=== PATIENT | male | born 1960 | race African-American/Black ===

== ENCOUNTER 2017-03-20 10:30 | Inpatient (IN) | payer MEDICARE ==
[~2017-03-20] VITALS: Ht 185.4 cm; Wt 128.0 kg
[2017-03-20] VITALS (10 sets, daily range): BP systolic 149–182; BP diastolic 74–104; PULSE 89–104; RESP 20–24; TEMP 97.5–98.4; O2SAT 78–96
[~2017-03-20 10:30] MED LIST: ASPI325T PO; CLON.1 PO; DOLU1TAB PO; FURO1TAB93 PO; LEVEMIR SQ; METO50TA PO; PRED50 PO; TRUVTAB2 PO; ZITH200S PO
[2017-03-20] MEDS ORDERED: SODIUM CHLORIDE 0.9% FLUSH 10 ML FLUSH IVF PRN (11:00)
[2017-03-20] MEDS ORDERED: RESP: ALBUTEROL 2.5 MG/IPRATROPIUM 0.5 MG NEB (SCH) INH ONE (11:00)
--- NOTE | 2017-03-20 11:07 | RADRPT ---
EXAM DATE/TIME: 03/20/2017 11:03 [place] COMPARISON: CHEST SINGLE AP, January 28, 2016, 5:31. INDICATIONS : Short of breath and chest pain. MEDICAL HISTORY : Chronic obstructive pulmonary disease. Congestive heart failure. SURGICAL HISTORY : Pacemaker. ENCOUNTER: Initial ACUITY: 1 day PAIN SCORE: 8/10 LOCATION: Bilateral chest FINDINGS: Cardiac silhouette is enlarged. There is central vascular congestion and central and basilar parenchy mal opacity which may be developing edema. CONCLUSION: Moderate cardiac decompensation Daniel Flores MD on March 20, 2017 at 11:05 Board Certified Radiologist. This report was verified electronically.
[2017-03-20 11:21] LABS: AUTOMATED NEUTROPHIL # 2.4 TH/MM3 (1.8-7.7); BASOPHIL % 0.7 % (0.0-2.0); EOSINOPHIL # 0.1 TH/MM3 (0-0.4); EOSINOPHIL % 1.6 % (0.0-4.0); HEMATOCRIT 37.3 % (39.0-51.0); HEMO FLAGS DIFF FINAL; LYMPH % 25.4 % (9.0-44.0); MEAN CELL VOLUME 100.9 FL (80.0-100.0); MEAN CORPUSCULAR HEMOGLOBIN 31.2 PG (27.0-34.0); NEUT % 59.3 % (16.0-70.0); PLATELET COUNT 196 TH/MM3 (150-450); RED CELL DISTRIBUTION WIDTH 17.3 % (11.6-17.2)
[2017-03-20 11:41] LABS: BACTERIA, URINE FEW /hpf; BLOOD, URINE SMALL (NEG); GLUCOSE,URINE NEG (NEG); KETONE, URINE NEG (NEG); NITRITE,URINE NEG (NEG); SQUAMOUS EPITHELIAL CELL URINE <1 /hpf (0-5); URINE COLOR YELLOW (YELLW/STRAW)
[2017-03-20 11:42] LABS: ALKALINE PHOSPHATASE 114 U/L (45-117); CREATINE KINASE 143 U/L (39-308); TOTAL BILIRUBIN ADULT 0.7 MG/DL (0.2-1.0)
[2017-03-20 11:44] LABS: COMMENT (UR) CULT NOT INDICATED; CULTURE IF INDICATED CULT NOT INDICATED
[2017-03-20 11:46] LABS: ALT (GPT) 64 U/L (12-78); ANION GAP 5 MEQ/L (5-15); AST (GOT) 66 U/L (15-37); BICARBONATE 28.8 MEQ/L (21.0-32.0); BLOOD UREA NITROGEN 26 MG/DL (7-18); CHLORIDE 103 MEQ/L (98-107); GLOMERULAR FILTRATION RATE 35 ML/MIN (>89); POTASSIUM 4.6 MEQ/L (3.5-5.1); SODIUM (NA) 137 MEQ/L (136-145)
[2017-03-20] MEDS: RESP: ALBUTEROL 2.5 MG/3 ML NEB (SCH) INH ×2 (11:50→11:51)
[2017-03-20 11:54] LABS: CKMB 2.7 NG/ML (0.5-3.6)
[2017-03-20] MEDS ORDERED: methylPREDNISolone SOD SUCC 125 MG/2 ML VIAL IV PUSH ONE (12:00)
[2017-03-20] MEDS ORDERED: HYDROmorphone HCL PF 1 MG/ML VIAL IV PUSH ONE (12:00)
[2017-03-20 12:07] LABS: BLOOD GAS BASE EXCESS 1.9 mmol/L (-2-2); BLOOD GAS CARBOXYHEMOGLOBIN 3.3 % (0-4); BLOOD GAS HCO3 29 mmol/L (22-26); BLOOD GAS METHEMOGLOBIN 0.4 % (0-2); BLOOD GAS O2 HGB SATURATION 90 % (90-100); BLOOD GAS OXYGEN CONTENT 13.2 Vol % (12.0-20.0); BLOOD GAS PCO2 71 mmHg (38-42); BLOOD GAS PO2 76 mmHG (61-120); BLOOD GAS TOTAL HGB 10.4 G/DL (12.0-16.0); CRITICAL VALUE YES; DRAW SITE RT RADIAL; FIO2 32 %; LITER FLOW 3 L/M; NUMBER OF ARTERIAL PUNCTURES 1; OXYGEN DEVICE NASAL CANNULA; STAT YES; TEMP CORR TO 98.6; ULNAR PULSE PRESENT
--- NOTE | 2017-03-20 12:20 | PD ---
HPI Chief Complaint: Respiratory Distress Time Seen by Provider: 10:46 Travel History International Travel<30 days: No Contact w/Intl Traveler<30days: No Traveled to known affect area: No History of Present Illness HPI This is a 56-year-old gentleman with a history of COPD, CHF, chronic lymphedema of the right lower extremity, who presents today with complaints of dyspnea and chest pain. Patient states that over the last day and a half he's become increasingly short of breath. He states he normally uses 3 L of oxygen at night for sleeping only. He states that he's had to use it over the last day during the day as well. He reports dyspnea on exertion. He reports the pain on the left side the chest as constant. There is no waxing and waning. There is no productive cough. He has been using his MDIs as well as nebulizers. He reports that despite this, he is still having wheezing and shortness of breath. There is no nausea or diaphoresis. The patient states that 3 weeks ago he was seen in [place] and had a heart attack at that time. PFSH Past Medical History Arthritis: No Asthma: No Autoimmune Disease: Yes (HIV) Blood Disorders: No Anxiety: No Depression: Yes Heart Rhythm Problems: Yes (HAS BEEN TOLD HE NEEDS A "DEFIBRILLATOR" AND "STENTS") Cancer: Yes (LYMPHOMA;CHORNIC LYMPHEDEMA) Cardiovascular Problems: Yes (CHF) High Cholesterol: No Chemotherapy: Yes Chest Pain: Yes Congestive Heart Failure: Yes COPD: Yes Cerebrovascular Accident: No Coronary Artery Disease: Yes Diabetes: Yes Patient Takes Glucophage: No Diminished Hearing: No Endocrine: No Gastrointestinal Disorders: Yes GERD: Yes Glaucoma: No Genitourinary: Yes Headaches: No Hepatitis: Yes Hiatal Hernia: No Heparin Induced Thrombocytopen: No Hypertension: Yes Immune Disorder: Yes (HIV/AIDS) Implanted Vascular Access Dvce: No Kidney Stones: No Medical other: Yes (HIV +) Musculoskeletal: No Neurologic: No Psychiatric: No Reproductive: No Respiratory: Yes (SLEEP APNEA) Immunizations Current: No Migraines: No Myocardial Infarction: Yes Radiation Therapy: No Renal Failure: No Seizures: No Sickle Cell Disease: No Sleep Apnea: Yes Thyroid Disease: Yes Ulcer: No ?: Not Past Surgical History Abdominal Surgery: No AICD: No Appendectomy: No Arteriovenous Shunt: No Cardiac Surgery: Yes Cholecystectomy: No Ear Surgery: No Endocrine Surgery: No Eye Surgery: No Genitourinary Surgery: No Gynecologic Surgery: No Insulin Pump: No Joint Replacement: No Neurologic Surgery: No Oral Surgery: Yes Pacemaker: No Thoracic Surgery: No Other Surgery: Yes ( GRAFT R. UPPER LEG) Social History Alcohol Use: No Tobacco Use: No Substance Use: No Allergies-Medications (Allergen,Severity, Reaction): Coded Allergies: benazepril (Unverified Allergy, Severe, SWELLING MOUTH ,TONGUE, 03/20/17) captopril (Unverified Allergy, Severe, SWELLING MOUTH ,TONGUE, 03/20/17) enalaprilat (Unverified Allergy, Severe, SWELLING MOUTH ,TONGUE, 03/20/17) fosinopril (Unverified Allergy, Severe, SWELLING MOUTH ,TONGUE, 03/20/17) lisinopril (Unverified Allergy, Severe, SWELLING MOUTH ,TONGUE, 03/20/17) quinapril (Unverified Allergy, Severe, SWELLING MOUTH ,TONGUE, 03/20/17) *MDRO Multi-Drug Resistant Organism (Verified Adverse Reaction, Unknown, 03/20/17) MRSA Wound 08/2013 MRSA PCR Nasal screen positive 10/19/14. Reported Meds & Prescriptions Reported Meds & Active Scripts Active Deltasone 50 Mg Tab (Prednisone) 50 Mg Tab 50 Mg PO DAILY Metoprolol Tartrate 50 mg (Metoprolol Tartrate) 50 Mg Tab 50 Mg PO BID 30 Days Lasix (Furosemide) 40 Mg Tab 40 Mg PO BID 30 Days Reported Zithromax (Azithromycin) 200 Mg/5 Ml Lashell 200 Mg PO DAILY Catapres 0.1 mg (Clonidine HCl) 0.1 Mg Tab 1 Tab PO DAILY Levemir Insulin (Insulin Detemir) 100 Units/Ml Inj 60 Units SQ DAILY Truvada (Emtricitabine/Tenofovir) 200 Mg-300 Mg Tab 1 Tab PO DAILY Tivicay (Dolutegravir Sodium) 50 Mg Tab 1 Tab PO DAILY Aspirin 325 Mg Tab (Aspirin) 325 Mg Tab 325 Mg PO DAILY Review of Systems Except as stated in HPI: all other systems reviewed are Neg General / Constitutional: No: Fever, Chills HENT: No: Headaches, Lightheadedness Cardiovascular: Positive: Chest Pain or Discomfort, No: Palpitations (left sided constant 24 hours), Irregular Rhythm Respiratory: Positive: Shortness of Breath, Wheezing, No: Cough Gastrointestinal: No: Nausea, Vomiting, Abdominal Pain Genitourinary: No: Dysuria Musculoskeletal: Positive: Weakness (generalized), Edema (chronic bilateral lower extremity with chronic lymphedema of the right lower extremity.), No: Pain Neurologic: Positive: Weakness (generalized), No: Dizziness, Headache, Change in Mentation Physical Exam Narrative GENERAL: Obese gentleman in obvious respiratory discomfort. SKIN: Focused skin assessment warm/dry. HEAD: Atraumatic. Normocephalic. EYES: No scleral icterus. No injection or drainage. ENT: No nasal bleeding or discharge. Mucous membranes pink and moist. NECK: Trachea midline. Supple.. CARDIOVASCULAR: Sinus Tachycardic with a rate of 102. No murmur appreciated. RESPIRATORY: Bilateral expiratory wheezes with decreased air exchange in the mid and lower lung gomez. GASTROINTESTINAL: Abdomen soft, obese non-tender, nondistended. MUSCULOSKELETAL: Chronic bilateral lower extremity edema with right worse than last. Patient has chronic lymphedema of the right lower extremity. NEUROLOGICAL: Awake and alert. No obvious cranial nerve deficits. Motor grossly within normal limits. Normal speech. Data Data Last Documented VS Vital Signs Date Time Temp Pulse Resp B/P (MAP) Pulse Ox O2 Delivery O2 Flow Rate FiO2 03/20/17 13:46 18 03/20/17 11:59 96 Nasal Cannula 3.00 03/20/17 11:59 03/20/17 11:37 104 03/20/17 10:33 98.4 Orders Orders Complete Blood Count With Diff (03/20/17 10:46) Comprehensive Metabolic Panel (03/20/17 10:46) B-Type Natriuretic Peptide (03/20/17 10:46) Ckmb (Isoenzyme) Profile (03/20/17 10:46) Troponin I (03/20/17 10:46) Arterial Blood Gas (Abg) (03/20/17 10:46) Urinalysis - C+S If Indicated (03/20/17 10:46) Iv Access Insert/Monitor (03/20/17 10:46) Ecg Monitoring (03/20/17 10:46) Oximetry (03/20/17 10:46) Oxygen Administration (03/20/17 10:46) Chest, Single Ap (03/20/17 10:46) Sodium Chloride 0.9% Flush (Ns Flush) (03/20/17 11:00) Albuterol-Ipratropium Neb (Duoneb Neb) (03/20/17 11:00) Albuterol Neb (Albuterol Neb) (03/20/17 11:00) CKMB (03/20/17 10:40) CKMB% (03/20/17 10:40) Methylprednisolone So Succ Inj (Solumedr (03/20/17 12:00) Hydromorphone Pf Inj (Dilaudid Pf Inj) (03/20/17 12:00) Electrocardiogram (03/20/17 ) Aspirin (Aspirin) (03/21/17 09:00) Azithromycin 200 Mg/5 Ml Liq (Zithromax (03/21/17 09:00) Dolutegravir (Tivicay) (03/21/17 09:00) Emtricitabin-Tenofov 200-300mg (Truvada (03/21/17 09:00) Admit To Inpatient (03/20/17 ) Vital Signs (Adult) VERA.Q4H (03/20/17 14:00) Activity Oob Ad [place] (03/20/17 14:00) 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 VERA.Q8H (03/20/17 14:00) Intake + Output VERA.QSHIFT (03/20/17 14:00) ^ Restrictions (03/20/17 14:00) Sodium Chloride 0.9% Flush (Ns Flush) (03/20/17 21:00) Sodium Chloride 0.9% Flush (Ns Flush) (03/20/17 14:00) Bumetanide Inj (Bumex Inj) (03/20/17 18:00) Basic Metabolic Panel (Bmp) (03/21/17 06:00) Magnesium (Mg) (03/20/17 14:00) Echo 2d Comp With Doppler (03/20/17 ) Resp Oxygen Cordell C Titrat 1-4 L (03/20/17 ) Case Management Consult (03/20/17 ) Heparin Inj (Heparin Inj) (03/20/17 21:00) Inpatient Certification (03/20/17 ) Diet Heart Healthy (03/20/17 Dinner) Insulin Detemir Inj (Levemir Inj) (03/20/17 21:00) Bedside Glucose VERA.CSUGAR (03/20/17 14:03) Blood Glucose Goal (Criteria) (03/20/17 14:03) Hypoglycemia 70 Mg/Dl Or < (03/20/17 14:03) Notify Dr: Other (03/20/17 14:03) Dextrose 50% In Joseluis (Vial) Inj (D50w (Vi (03/20/17 14:15) Glucagon Inj (Glucagon Inj) (03/20/17 14:15) Insulin Aspart Supplemtl Scale (Novolog (03/20/17 17:00) Albuterol-Ipratropium Neb (Duoneb Neb) (03/20/17 16:00) Albuterol Neb (Albuterol Neb) (03/20/17 16:00) Methylprednisolone So Succ Inj (Solumedr (03/20/17 18:00) Admit Order (Ed Use Only) (03/20/17 15:05) Labs Laboratory Tests Test 03/20/17 10:40 03/20/17 11:10 03/20/17 11:40 White Blood Count 4.0 TH/MM3 Red Blood Count 3.70 MIL/MM3 Hemoglobin 11.6 GM/DL Hematocrit 37.3 % Mean Corpuscular Volume 100.9 FL Mean Corpuscular Hemoglobin 31.2 PG Mean Corpuscular Hemoglobin Concent 31.0 % Red Cell Distribution Width 17.3 % Platelet Count 196 TH/MM3 Mean Platelet Volume 7.6 FL Neutrophils (%) (Auto) 59.3 % Lymphocytes (%) (Auto) 25.4 % Monocytes (%) (Auto) 13.0 % Eosinophils (%) (Auto) 1.6 % Basophils (%) (Auto) 0.7 % Neutrophils # (Auto) 2.4 TH/MM3 Lymphocytes # (Auto) 1.0 TH/MM3 Monocytes # (Auto) 0.5 TH/MM3 Eosinophils # (Auto) 0.1 TH/MM3 Basophils # (Auto) 0.0 TH/MM3 CBC Comment DIFF FINAL Differential Comment Blood Urea Nitrogen 26 MG/DL Creatinine 2.35 MG/DL Random Glucose 113 MG/DL Total Protein 9.8 GM/DL Albumin 2.5 GM/DL Calcium Level 8.2 MG/DL Alkaline Phosphatase 114 U/L Aspartate Amino Transf (AST/SGOT) 66 U/L Alanine Aminotransferase (ALT/SGPT) 64 U/L Total Bilirubin 0.7 MG/DL Sodium Level 137 MEQ/L Potassium Level 4.6 MEQ/L Chloride Level 103 MEQ/L Carbon Dioxide Level 28.8 MEQ/L Anion Gap 5 MEQ/L Estimat Glomerular Filtration Rate 35 ML/MIN Total Creatine Kinase 143 U/L Creatine Kinase MB 2.7 NG/ML Troponin I 0.06 NG/ML B-Type Natriuretic Peptide 1686 PG/ML Urine Color YELLOW Urine Turbidity CLEAR Urine pH 6.0 Urine Specific [place] 1.016 Urine Protein 100 mg/dL Urine Glucose (UA) NEG mg/dL Urine Ketones NEG mg/dL Urine Occult Blood SMALL Urine Nitrite NEG Urine Bilirubin NEG Urine Urobilinogen LESS THAN 2.0 MG/DL Urine Leukocyte Esterase NEG Urine RBC 1 /hpf Urine WBC 2 /hpf Urine Squamous Epithelial Cells <1 /hpf Urine Bacteria FEW /hpf Microscopic Urinalysis Comment CULT NOT INDICATED Blood Gas Puncture Site RT RADIAL Blood Gas Patient Temperature 98.6 Blood Gas HCO3 29 mmol/L Blood Gas Base Excess 1.9 mmol/L Blood Gas Oxygen Saturation 90 % Arterial Blood pH 7.23 Arterial Blood Partial Pressure CO2 71 mmHg Arterial Blood Partial Pressure O2 76 mmHG Arterial Blood Oxygen Content 13.2 Vol % Arterial Blood Carboxyhemoglobin 3.3 % Arterial Blood Methemoglobin 0.4 % Blood Gas Hemoglobin 10.4 G/DL Oxygen Delivery Device NASAL CANNULA Blood Gas Liter Flow 3 L/M Blood Gas Inspired Oxygen 32 % MDM Medical Decision Making Medical Screen Exam Complete: Yes Emergency Medical Condition: Yes Differential Diagnosis COPD exacerbation versus CHF versus pneumonia Narrative Course 56-year-old gentleman with history of CHF, COPD, hepatitis C, HIV, chronic kidney disease, who presents today with points of shortness of breath. The patient states that he was seen in [place] 3 weeks ago diagnosed with an PA. The patient states that he has had shortness of breath over last few days. He reports that it came on with the weather change. He denies any fevers, chills. He denies any productive cough. He does have a history of chronic lymphedema of his right lower extremity. He reports left sided constant chest pain on the left lateral chest wall. He states that worsens with deep inspiration and cough. Patient's blood gas shows pH 7.24. Patient had a PCO2 of 72 and a PO2 in the 70s. He's been started on nebulizer treatments. Patient also been given 125 mg Solu-Medrol. The patient was discussed with Dr. Nahun Melendez, [facility], who agrees for the admission. BNP is elevated at above 2000. Exam showed bilateral expiratory wheezes. Diagnosis Primary Impression: CHF exacerbation Additional Impressions: COPD exacerbation Acute kidney injury superimposed on chronic kidney disease history of HIV disease History of hepatitis C Diabetes mellitus chronic lymphedema of the right lower extremity Admitting Information Admitting Physician Requests: Admit Seymour Chavez MD Mar 20, 2017 12:20
[2017-03-20] MEDS ORDERED: SODIUM CHLORIDE 0.9% FLUSH 10 ML FLUSH IV FLUSH PRN (14:00)
--- NOTE | 2017-03-20 14:01 | EKG ---
Date Performed: 03/20/2017 Time Performed: 10:37:10 PTAGE: 56 years EKG: SINUS TACHYCARDIA NONSPECIFIC ST & T-WAVE ABNORMALITY ABNORMAL ECG PREVIOUS TRACING : 01/28/2016 06.06 DOCTOR: Gunner Ny Interpretating Date/Time 03/20/2017 14:01:05
[2017-03-20] MEDS ORDERED: DEXTROSE 50% IN WATER 50 ML VIAL(D50) IV PUSH PRN (14:15)
[2017-03-20] MEDS ORDERED: GLUCAGON 1 MG/ML VIAL OTHER PRN (14:15)
[2017-03-20] MEDS ORDERED: RESP: ALBUTEROL 2.5 MG/3 ML NEB (PRN) INH (16:00)
--- NOTE | 2017-03-20 16:38 | HHI.HP ---
[facility] Primary [facility] Physician No Primary Care Physician Admission Diagnosis COPD, CHF, acute on chronic kidney disease, diabetes mellitus Diagnoses: Chief Complaint: Shortness of breath Travel History International Travel<30 Days: No Contact w/Intl Traveler <30 Da: No Traveled to Known Affected Are: No History of Present Illness 56-year-old male with multiple comorbid conditions including hypertension, CHF, HIV, hepatitis C, COPD, diabetes mellitus, chronic lymphedema who presented to the emergency room with complaint of worsening shortness of breath. Patient reports he has been staying in [place], he had an AICD placed 3 months ago because his heart function Declining and getting worse. He reports about 3 weeks ago he went into cardiac arrest requiring CPR. He was discharged to a rehabilitation facility. He recently drove down from [place] to this area because he believed he would not survive the winter up there. He presented to the emergency room with worsening shortness of breath. He has chronic chest pain. His BNP on presentation is 1600 and chest x-ray consistent with heart failure. Patient is being admitted for CHF, COPD exacerbation, acute on chronic renal failure. Per discussion with the ER physician, he was in respiratory distress on arrival , by the time of my evaluation, he reports feeling much better after receiving breathing treatments and steroids. He feels okay at rest but reports significant dyspnea with minimal exertion. Review of Systems Constitutional: DENIES: Fever, Chills Respiratory: COMPLAINS OF: Shortness of breath, DENIES: Cough, Sputum production Cardiovascular: COMPLAINS OF: Chest pain Gastrointestinal: DENIES: Nausea, Vomiting Genitourinary: DENIES: Dysuria Musculoskeletal: COMPLAINS OF: Joint pain, Muscle aches Except as stated in HPI: all other systems reviewed are Neg Past Family Social History Past Medical History Hypertension, CHF, HIV, hepatitis C, COPD, diabetes mellitus, chronic lymphedema Chronically elevated troponins Chronic pain, was reportedly followed by pain management in [place]. Past Surgical History AICD placement Rectal Surgery Left Thigh Biopsy Allergies: Coded Allergies: benazepril (Unverified Allergy, Severe, SWELLING MOUTH ,TONGUE, 03/20/17) captopril (Unverified Allergy, Severe, SWELLING MOUTH ,TONGUE, 03/20/17) enalaprilat (Unverified Allergy, Severe, SWELLING MOUTH ,TONGUE, 03/20/17) fosinopril (Unverified Allergy, Severe, SWELLING MOUTH ,TONGUE, 03/20/17) lisinopril (Unverified Allergy, Severe, SWELLING MOUTH ,TONGUE, 03/20/17) quinapril (Unverified Allergy, Severe, SWELLING MOUTH ,TONGUE, 03/20/17) *MDRO Multi-Drug Resistant Organism (Verified Adverse Reaction, Unknown, 03/20/17) MRSA Wound 08/2013 MRSA PCR Nasal screen positive 10/19/14. Family History Reviewed on his noncontributory. Social History [place] he quit using tobacco about a year ago. Prior to that he was a lifelong one pack per day smoker. He denies drinking alcohol. Denies current illicit drug use. He does have a history of cocaine use. Physical Exam Vital Signs Vital Signs Date Time Temp Pulse Resp B/P (MAP) Pulse Ox O2 Delivery O2 Flow Rate FiO2 03/20/17 15:26 89 22 169/74 (105) 96 Nasal Cannula 3.00 03/20/17 13:46 18 03/20/17 11:59 96 Nasal Cannula 3.00 03/20/17 11:59 96 Nasal Cannula 3.00 03/20/17 11:37 104 22 156/90 (112) 95 3.00 03/20/17 10:41 102 22 167/94 (118) 94 3.00 03/20/17 10:41 102 22 96 Nasal Cannula 3.00 03/20/17 10:33 98.4 102 24 167/94 (118) 78 Physical Exam GENERAL: Morbidly obese male in no acute distress. SKIN: Severe lymphedema changes bilateral lower extremities. HEAD: Atraumatic. Normocephalic. EYES: Pupils equal round and reactive. Extraocular motions intact. No scleral icterus. No injection or drainage. CARDIOVASCULAR: Regular rate and rhythm without murmurs, gallops, or rubs. RESPIRATORY: Movement is fair. Markedly diminished breath sounds at the bases bilaterally, otherwise clear to auscultation. GASTROINTESTINAL: Abdomen obese, soft, nontender. MUSCULOSKELETAL: Bilateral lower extremity with severe lymphedema, right much worse than the left. NEUROLOGICAL: Awake and alert. Normal speech. Laboratory Laboratory Tests Test 03/20/17 10:40 03/20/17 11:10 03/20/17 11:40 White Blood Count 4.0 Red Blood Count 3.70 Hemoglobin 11.6 Hematocrit 37.3 Mean Corpuscular Volume 100.9 Mean Corpuscular Hemoglobin 31.2 Mean Corpuscular Hemoglobin Concent 31.0 Red Cell Distribution Width 17.3 Platelet Count 196 Mean Platelet Volume 7.6 Neutrophils (%) (Auto) 59.3 Lymphocytes (%) (Auto) 25.4 Monocytes (%) (Auto) 13.0 Eosinophils (%) (Auto) 1.6 Basophils (%) (Auto) 0.7 Neutrophils # (Auto) 2.4 Lymphocytes # (Auto) 1.0 Monocytes # (Auto) 0.5 Eosinophils # (Auto) 0.1 Basophils # (Auto) 0.0 CBC Comment DIFF FINAL Differential Comment Blood Urea Nitrogen 26 Creatinine 2.35 Random Glucose 113 Total Protein 9.8 Albumin 2.5 Calcium Level 8.2 Alkaline Phosphatase 114 Aspartate Amino Transf (AST/SGOT) 66 Alanine Aminotransferase (ALT/SGPT) 64 Total Bilirubin 0.7 Sodium Level 137 Potassium Level 4.6 Chloride Level 103 Carbon Dioxide Level 28.8 Anion Gap 5 Estimat Glomerular Filtration Rate 35 Magnesium Level 1.9 Total Creatine Kinase 143 Creatine Kinase MB 2.7 Troponin I 0.06 B-Type Natriuretic Peptide 1686 Urine Color YELLOW Urine Turbidity CLEAR Urine pH 6.0 Urine Specific [place] 1.016 Urine Protein 100 Urine Glucose (UA) NEG Urine Ketones NEG Urine Occult Blood SMALL Urine Nitrite NEG Urine Bilirubin NEG Urine Urobilinogen LESS THAN 2.0 Urine Leukocyte Esterase NEG Urine RBC 1 Urine WBC 2 Urine Squamous Epithelial Cells <1 Urine Bacteria FEW Microscopic Urinalysis Comment CULT NOT INDICATED Blood Gas Puncture Site RT RADIAL Blood Gas Patient Temperature 98.6 Blood Gas HCO3 29 Blood Gas Base Excess 1.9 Blood Gas Oxygen Saturation 90 Arterial Blood pH 7.23 Arterial Blood Partial Pressure CO2 71 Arterial Blood Partial Pressure O2 76 Arterial Blood Oxygen Content 13.2 Arterial Blood Carboxyhemoglobin 3.3 Arterial Blood Methemoglobin 0.4 Blood Gas Hemoglobin 10.4 Oxygen Delivery Device NASAL CANNULA Blood Gas Liter Flow 3 Blood Gas Inspired Oxygen 32 Result Diagram: 03/20/17 1040 03/20/17 1040 Imaging Last Impressions Chest X-Ray 03/20/17 1046 Signed Impressions: Service Date/Time: Monday, March 20, 2017 11:03 - CONCLUSION: Moderate cardiac decompensation Daniel Flores MD [place] VTE Risk Assessment Caprini VTE Risk Assessment: Mod/High Risk (score >= 2) Caprini Risk Assessment Model Point Value = 1 Point Value = 2 Point Value = 3 Point Value = 5 Age 41-60 Minor surgery BMI > 25 kg/m2 Swollen legs Varicose veins or History of unexplained or recurrent spontaneous Oral contraceptives or hormone replacement Sepsis (< 1 month) Serious lung disease, including pneumonia (< 1 month) Abnormal pulmonary function Acute myocardial infarction Congestive heart failure (< 1 month) History of inflammatory bowel disease Medical patient at bed rest Age 61-74 Arthroscopic surgery Major open surgery (> 45 min) Laparoscopic surgery (> 45 min) Malignancy Confined to bed (> 72 hours) Immobilizing plaster cast Central venous access Age >= 75 History of VTE Family history of VTE Factor V Leiden Prothrombin [id number] Lupus anticoagulant Anticardiolipin antibodies Elevated serum homocysteine Heparin-induced thrombocytopenia Other congenital or acquired thrombophilia Stroke (< 1 month) Elective arthroplasty Hip, pelvis, or leg fracture Acute spinal cord injury (< 1 month) Prophylaxis Regimen Total Risk Factor Score Risk Level Prophylaxis Regimen 0-1 Low Early ambulation 2 Moderate Order ONE of the following: *Sequential Compression Device (SCD) *Heparin 5000 units SQ BID 3-4 Higher Order ONE of the following medications: *Heparin 5000 units SQ TID *Enoxaparin/Lovenox 40 mg SQ daily (WT < 150 kg, CrCl > 30 mL/min) *Enoxaparin/Lovenox 30 mg SQ daily (WT < 150 kg, CrCl > 10-29 mL/min) *Enoxaparin/Lovenox 30 mg SQ BID (WT < 150 kg, CrCl > 30 mL/min) AND/OR *Sequential Compression Device (SCD) 5 or more Highest Order ONE of the following medications: *Heparin 5000 units SQ TID (Preferred with Epidurals) *Enoxaparin/Lovenox 40 mg SQ daily (WT < 150 kg, CrCl > 30 mL/min) *Enoxaparin/Lovenox 30 mg SQ daily (WT < 150 kg, CrCl > 10-29 mL/min) *Enoxaparin/Lovenox 30 mg SQ BID (WT < 150 kg, CrCl > 30 mL/min) AND *Sequential Compression Device (SCD) Assessment and Plan Problem List: (1) Acute on chronic systolic (congestive) heart failure ICD Code: I50.23 - Acute on chronic systolic (congestive) heart failure (2) COPD exacerbation ICD Code: J44.1 - COPD exacerbation Status: Acute (3) Hypertension ICD Code: I10 - Hypertension Status: Chronic (4) Chronic acquired lymphedema ICD Code: I89.0 - Chronic acquired lymphedema Status: Chronic (5) DM (diabetes mellitus) ICD Code: E11.9 - DM (diabetes mellitus) Status: Chronic (6) HIV (human immunodeficiency virus infection) ICD Code: Z21 - HIV (human immunodeficiency virus infection) Status: Chronic Assessment and Plan 56-year-old male admitted with acute on chronic systolic CHF, COPD exacerbation , and acute on chronic renal failure. The patient just returned in the [facility]. He reports recent history of AICD placement and cardiac arrest 3 weeks ago. Acute on chronic systolic CHF: History of AICD placement for severely reduced EF. Reportedly had cardiac arrest 3 weeks ago. - Patient did not want to be on Bumex. Start Lasix IV 40 mg twice a day - Fluid restriction - Continue metoprolol, aspirin. Apparently allergic to alicja inhibitors. - Cardiology consulted for assistance. Acute COPD exacerbation: No signs of infectious process currently. Patient attributes this to the change in weather. He just returned to the [facility] from [place]. - Continue Solu-Medrol IV - Supple oxygen as needed - Bronchodilators as needed. - Consult pulmonology. Acute on chronic renal failure: Unsure what his new baseline is since he has been out of the area for a couple of years. - Avoid nephrotoxins. - Follow renal functions Diabetes mellitus: type 2 - Lantus 60 units daily - SSI with Accu-Cheks. HIV: Continue antivirals GI prophylaxis: Stool softener PRN constipation. DVT PPx: Heparin Code Status Full Discussed Condition With Dr. Chavez Physician Certification 2 Midnight Certification Type: Admission for Inpatient Services Order for Inpatient Services The services are ordered in accordance with Medicare regulations or non- Medicare payer requirements, as applicable. In the case of services not specified as inpatient-only, they are appropriately provided as inpatient services in accordance with the 2-midnight benchmark. Estimated LOS (days): 3 days is the estimated time the patient will need to remain in the hospital, assuming treatment plan goals are met and no additional complications. Post-Hospital Plan: Not yet determined Emeterio Beal MD Mar 20, 2017 16:38
[2017-03-20] MEDS ORDERED: ACETAMINOPHEN/HYDROcodone 325 MG/5 MG TAB PO PRN (16:45)
[2017-03-20] MEDS: RESP: ALBUTEROL 2.5 MG/IPRATROPIUM 0.5 MG NEB (SCH) INH (16:53)
[2017-03-20] MEDS: INSULIN ASPART SUPPLEMENTAL SCALE SQ SCH ×2 (17:00→22:26)
[2017-03-20] MEDS ORDERED: BUMETANIDE INJ 1 MG/4 ML VIAL IVP SCH (18:00)
[2017-03-20] MEDS: methylPREDNISolone SOD SUCC 125 MG/2 ML VIAL IV PUSH SCH ×2 (19:04→23:32)
[2017-03-20] MEDS: FUROSEMIDE 40 MG/4 ML VIAL IV PUSH SCH (19:04)
--- NOTE | 2017-03-20 20:56 | MB ---
cc: MUR[address] DATE OF CONSULTATION: 03/20/2017 REASON FOR CONSULTATION: HISTORY OF PRESENT ILLNESS: The patient is a 56-year-old black male with a history of congestive heart failure, cardiomyopathy, cardiac arrest, HIV, hepatitis C, COPD, diabetes mellitus and chronic lymphedema. He recently traveled here from [place]. He has increased shortness of breath. He had a cardiac arrest three weeks ago according to the ER and was discharged to rehab. He was diagnosed with CHF and COPD exacerbation, renal failure and therapy was initiated. PAST MEDICAL HISTORY Positive as above including hypertension, congestive heart failure, cardiomyopathy, HIV, Hepatitis C, COPD, diabetes mellitus, chronic lymphedema, chronic elevated troponins, [employer] ICD placement about two months ago, rectal surgery. ALLERGIES: BENAZEPRIL CAPTOPRIL ENALAPRIL FOSINOPRIL LISINOPRIL QUINAPRIL MEDICATIONS: 1. Aspirin. 2. Zithromax 3. Truvada 4. Levemir subcu. 5. Heparin 6. Metoprolol 7. Solu-Medrol 8. Furosemide 9. Insulin sliding scale. SOCIAL HISTORY The patient does not smoke. He quit smoking about a year ago. He does not drink alcohol. He has a history of cocaine use. FAMILY HISTORY: Negative for heart disease. REVIEW OF SYSTEMS: Otherwise negative. PHYSICAL EXAMINATION VITAL SIGNS: Blood pressure 169/74, pulse 89 and regular. HEENT: Negative. Neck: 2+ carotid upstrokes. Lungs: Decreased breath sounds, bases clear. Heart: Regular with no murmur or gallop. Abdomen: Soft, obese, no bruits. Extremities: Lymphedema, more prominent on the right side, diminished pulses. Neurologic: Grossly nonfocal. EKG was reviewed and showed normal sinus rhythm, normal axis. nonspecific mild nonspecific ST-T changes. LABORATORY DATA Hemoglobin 11.6, potassium 4.6, creatinine 2.35, AST 66, ALT 64, troponin 0.06. BNP 1686. DIAGNOSIS: 1. Congestive heart failure. 2. Acute COPD exacerbation. 3. Cardiomyopathy. 4. Hypertension. 5. Diabetes mellitus. 6. History of HIV. 7. Chronic lymphedema. 8. Status post [employer] defibrillator placement. DISPOSITION: Mr. Thacker will be admitted to be monitored on telemetry. Recommend to continue therapy for congestive heart failure including diuresis. Recommend to continue beta-sofya. He has renal failure and his renal function will be closely monitored. He will be treated for his COPD exacerbation. I will follow him for cardiology during his hospitalization. MD BERNIE Sheets/TRISTEN /4:53 PM /7:54 PM
[2017-03-20] MEDS ORDERED: INSULIN DETEMIR 100 UNITS/ML VIAL SQ SCH (21:00)
[2017-03-20] MEDS: METOPROLOL TARTRATE 50 MG TAB PO SCH (22:15)
[2017-03-20] MEDS: HEPARIN SODIUM - SQ 10,000 UNITS/ML VIAL SQ SCH (22:18)
[2017-03-20] MEDS: SODIUM CHLORIDE 0.9% FLUSH 10 ML FLUSH IV FLUSH SCH (22:21)
[2017-03-21] VITALS (8 sets, daily range): BP systolic 128–149; BP diastolic 83–99; PULSE 75–126; RESP 18–22; TEMP 96.2–97.7; O2SAT 93–100
[2017-03-21] MEDS: RESP: ALBUTEROL 2.5 MG/IPRATROPIUM 0.5 MG NEB (SCH) INH ×6 (00:23→20:00)
[2017-03-21 02:48] LABS: MRSA PCR POSITIVE (NEGATIVE); STAPH AUREUS PCR POSITIVE (NEGATIVE)
[2017-03-21] MEDS: methylPREDNISolone SOD SUCC 125 MG/2 ML VIAL IV PUSH SCH ×3 (05:21→21:16)
[2017-03-21] MEDS: DOLUTEGRAVIR SODIUM 50 MG TAB PO SCH (08:37)
[2017-03-21] MEDS: ASPIRIN 325 MG TAB PO SCH (08:37)
[2017-03-21] MEDS: EMTRICITABINE/TENOFOVIR 200 MG/300 MG TAB PO SCH (08:37)
[2017-03-21] MEDS: METOPROLOL TARTRATE 50 MG TAB PO SCH ×2 (08:37→20:39)
[2017-03-21] MEDS: SODIUM CHLORIDE 0.9% FLUSH 10 ML FLUSH IV FLUSH SCH ×2 (08:37→20:46)
[2017-03-21] MEDS: FUROSEMIDE 40 MG/4 ML VIAL IV PUSH SCH ×2 (08:37→16:56)
[2017-03-21] MEDS: HEPARIN SODIUM - SQ 10,000 UNITS/ML VIAL SQ SCH ×3 (08:38→20:48)
[2017-03-21] MEDS: INSULIN ASPART SUPPLEMENTAL SCALE SQ SCH ×4 (08:46→20:46)
[2017-03-21] MEDS: INSULIN DETEMIR 100 UNITS/ML VIAL SQ SCH (08:46)
[2017-03-21] MEDS: AZITHROMYCIN SUSP 200 MG/5 ML 15 ML BTL PO SCH (09:00)
--- NOTE | 2017-03-21 12:31 | HHI.PR ---
Subjective Remarks Patient can barely stay awake during our conversation but he is requesting IV pain medication on top of his Oxycodone. Otherwise state he is feeling ok. Objective Vitals Vital Signs Date Time Temp Pulse Resp B/P (MAP) Pulse Ox O2 Delivery O2 Flow Rate FiO2 03/21/17 08:43 96.2 84 21 130/89 (103) 93 03/21/17 07:37 96 Nasal Cannula 4.00 03/21/17 04:00 96.8 80 19 149/96 (113) 95 03/21/17 00:27 95 Nasal Cannula 4.00 03/21/17 00:00 96.5 89 18 146/96 (113) 95 03/20/17 20:00 97.5 101 21 165/104 (124) 94 03/20/17 18:00 97.8 98 20 149/104 (119) 92 03/20/17 17:35 86 20 182/100 (127) 96 Nasal Cannula 3.00 03/20/17 17:07 89 22 174/100 (124) 95 Nasal Cannula 3.00 03/20/17 15:26 89 22 169/74 (105) 96 Nasal Cannula 3.00 03/20/17 13:46 18 I/O 03/20/17 03/20/17 03/20/17 03/21/17 03/21/17 03/21/17 07:00 15:00 23:00 07:00 15:00 23:00 Intake Total 440 ml 0 ml Output Total 700 ml 300 ml Balance -260 ml -300 ml Intake Oral 440 ml 0 ml Output Urine Total 700 ml 300 ml Result Diagram: 03/20/17 1040 03/20/17 1040 Objective Remarks GENERAL: Morbidly obese male in no acute distress. SKIN: Severe lymphedema changes bilateral lower extremities. CARDIOVASCULAR: Regular rate and rhythm without murmurs, gallops, or rubs. RESPIRATORY: Movement is fair. Markedly diminished breath sounds at the bases bilaterally, otherwise clear to auscultation. GASTROINTESTINAL: Abdomen obese, soft, nontender. MUSCULOSKELETAL: Bilateral lower extremity with severe lymphedema, right much worse than the left. NEUROLOGICAL: Somnolent. Normal speech. A/P Problem List: (1) Acute on chronic systolic (congestive) heart failure ICD Code: I50.23 - Acute on chronic systolic (congestive) heart failure (2) COPD exacerbation ICD Code: J44.1 - COPD exacerbation Status: Acute (3) Hypertension ICD Code: I10 - Hypertension Status: Chronic (4) Chronic acquired lymphedema ICD Code: I89.0 - Chronic acquired lymphedema Status: Chronic (5) DM (diabetes mellitus) ICD Code: E11.9 - DM (diabetes mellitus) Status: Chronic (6) HIV (human immunodeficiency virus infection) ICD Code: Z21 - HIV (human immunodeficiency virus infection) Status: Chronic Assessment and Plan 56-year-old male with multiple, severe comorbid conditions admitted with acute on chronic systolic CHF, COPD exacerbation, and acute on chronic renal failure. The patient just returned in the [facility]. He reports recent history of AICD placement and cardiac arrest 3 weeks ago. Acute on chronic systolic CHF: History of AICD placement for severely reduced EF. Reportedly had cardiac arrest 3 weeks ago. - Patient did not want to be on Bumex. Continue Lasix IV 40 mg twice a day - Fluid restriction - Continue metoprolol, aspirin. Apparently allergic to alicja inhibitors. - Cardiology following. 2-D echocardiogram shows global dysfunction with LVEF of 20-25%. Acute COPD exacerbation: No signs of infectious process currently. Patient attributes this to the change in weather. He just returned to the [facility] from [place]. - Continue Solu-Medrol IV. Appreciate pulmonology following. IV steroids decreased. Palliative care consulted. - Supplemental oxygen as needed - Bronchodilators as needed. Acute on chronic renal failure: Unsure what his new baseline is since he has been out of the area for a couple of years. -Worsening. Likely due to diuretic use. However also hyperkalemic today. Will consult nephrology Diabetes mellitus: type 2 - Lantus 60 units daily - SSI with Accu-Cheks. Chronic pain: Patient reports exacerbation of his pain. He requested IV pain medication. I have no objective evidence that he requires IV pain medication at this time. He was seen by palliative care. Agree with increase in oxycodone to help with his pain. HIV: Continue antivirals GI prophylaxis: Stool softener PRN constipation. DVT PPx: Patient refused heparin for DVT prophylaxis. He was counseled on the possibility of DVT or even from PE. Emeterio Beal MD Mar 21, 2017 12:31
--- NOTE | 2017-03-21 13:14 | MB ---
cc: Oswaldo DENNEY M.D. DATE OF CONSULTATION 03/21/2017 REASON FOR CONSULTATION Mr. Thacker is a 56-year-old black male with multiple serious comorbidities including cardiomyopathy, recent cardiac arrest, apparently recent insertion of cardiac defibrillator while in [place], hypertension, HIV, hepatitis C, COPD, former smoker although he quit a year ago, diabetes and severe chronic lymphedema. He just traveled from [place] because he had apparently a difficult time up their, although that is where most of his family is. He thought that he would have a very difficult time through the winter months so we wanted to live in [place]. He came to the emergency room because he was just having increased shortness of breath. His initial chest x-ray reveals decompensated CHF with some edema. No focal infiltrates. White count was normal at 4000. Arterial blood gases initially on presentation on nasal cannula at 3 liters his pO2 was 76, pH 7.23, and a pCO2 of 71. MRSA screen is positive and BUN and creatinine are elevated at 26 and 2.35. His BNP was 1600. At the time of this interview today, the patient says that he is feeling better, but he just feels chronically ill. He is weak, fatigued, has very significant edema that is chronic and apparently has been in chronic pain from arthritis for some time and taking oxycodone. He was a former smoker and quit about a year ago. He has a known diagnosis of COPD and was using inhalers. ALLERGIES Multiple as outlined in his EMR. MEDICATIONS Reviewed in the EMR, medications that he was using at home included: 1. Albuterol and Atrovent by inhalation. 2. Truvada 3. Hydrocodone 4. Insulin 5. Catapres 6. Aspirin 7. Clonidine 8. Lasix REVIEW OF SYSTEMS He denies chest pain, purulent sputum, hemoptysis, nausea or vomiting recently. PHYSICAL EXAMINATION VITAL SIGNS: Temperature 96 degrees, blood pressure 130/90, pulse 80, respirations 18-22, sat on 4 liters 96%. HEAD, EYES, EARS, NOSE, AND THROAT: Sclerae anicteric. NECK: Neck veins are not distended. CHEST: Diminished with some basilar rales. No congestion or wheezing, soft systolic murmur, no audible S3. EXTREMITIES: Huge lower extremities obvious chronic edema. Mild clubbing. No cyanosis. LABORATORY DATA As noted above. ASSESSMENT AND PLAN Mr. Thacker presents with multiple comorbidities, chronic dyspnea and significant pulmonary disease with chronic hypercarbia. He has been started on aerosolized bronchodilators and oxygen and IV corticosteroids and is feeling somewhat better. I will drop the IV corticosteroid dose back a bit particularly in light of his underlying diabetes. In light of the chronic pain and multiple severe comorbidities, I have asked Palliative care to see him which he agreed to, to establish some goals of therapy as well as to help manage his pain medicine. Further diagnostic and/or therapeutic intervention will depend on his initial response and ongoing clinical course. R. MD MARK Pulido/SALVATORE /12:41 PM /1:02 PM
--- NOTE | 2017-03-21 14:39 | PD.CONS ---
Consult Service Palliative Care . Consult Requested By Dr. Sung Nogueira . Primary Care Physician No Primary Care Physician . Reason for Consultation a. To assist with evaluation and management of symptoms including: pain, dyspnea. b. To assist medical decision maker(s) with: better understanding of current medical conditions; weighing benefits/burdens of medical treatment options; making medical treatment decisions. . (Renetta Greene) HPI History of Present Illness Mr. Thacker is a 56 year old male with past medical history of COPD, CHF, HIV/AIDS , hepatitis B & C, chronic kidney disease, diabetes, CAD, sleep apnea, GERD and chronic lymphedema of the right lower extremity. Patient reported he has been staying in [place], he had an AICD placed 3 months ago because declining heart function. 3 weeks ago he went into cardiac arrest requiring CPR. He was discharged to a rehabilitation facility. He recently drove down from [place] to this area because he believed he would not survive the winter. Patient presented to [facility] on 03/20/17 with increased shortness of breath over the few days prior to presentation. He reported left lateral chest wall pain that worsens with deep inspiration and cough. ABG revealed pH 7.24, PCO2 72, PO2 in the 70s. BNP > 2000. Creatinine 2.35, BUN 26, GFR 35. Total protein 9.8, albumin 2.5. Alk phos 114, AST 66, ALT 64, T, Bili 0.7. Urinalysis negative. Chest xray moderate cardiac decompensation. Patient was admitted with COPD exacerbation, CHF and acute on chronic kidney disease. EKG sinus rhythm and nonspecific mild ST-T changes. Cardiology, Dr. Chavez was consulted with recommendation to continue diuresis and beta- sofya. Pulmonology, Dr. Nogueira was consulted with recommendation to decrease corticosteroid given underlying diabetes. Palliative care was consulted to assist with pain management and clarification of treatment goals in this patient with multiple chronic comorbidities. Patient currently has hydrocodone 5/325mg PO every 6 hours pain 1-4 and oxycodone 10mg PO every 6 hours PRN pain > 5. Patient reports pain 10/10 in his abdomen, chest, left arm, bilateral LEs and joints. He reports some releif with PRN Oxycodone. He was taking Oxycodone 10mg PO every 6 hours PRN pain for many years prior to admission. Discussed with Dr. Beal to review plan for pain management, he agrees. Will increase range of Oxycodone 10-15mg every 6 hours PRN pain and DC hydrocodone. . Function/Cognitive Trajectory Patient has had overall declining health over the past few years. He recently [place]. He reports SOB on exertion. Good appetite. . (Renetta Greene) Review of Systems Constitutional: COMPLAINS OF: Fatigue, Pain, Generalized weakness Respiratory: COMPLAINS OF: Shortness of breath Cardiovascular: COMPLAINS OF: Dyspnea on Exertion, Lower Extremity Edema ( Bilateral LE lymphedema) Gastrointestinal: COMPLAINS OF: Abdominal pain Musculoskeletal: COMPLAINS OF: Joint pain ("due to RA") Psychiatric: COMPLAINS OF: Anxiety (Renetta Greene) Past Family Social History Coded Allergies: benazepril (Unverified Allergy, Severe, SWELLING MOUTH ,TONGUE, 03/20/17) captopril (Unverified Allergy, Severe, SWELLING MOUTH ,TONGUE, 03/20/17) enalaprilat (Unverified Allergy, Severe, SWELLING MOUTH ,TONGUE, 03/20/17) fosinopril (Unverified Allergy, Severe, SWELLING MOUTH ,TONGUE, 03/20/17) lisinopril (Unverified Allergy, Severe, SWELLING MOUTH ,TONGUE, 03/20/17) quinapril (Unverified Allergy, Severe, SWELLING MOUTH ,TONGUE, 03/20/17) Past Medical History Hypertension CHF HIV/AIDS Hepatitis C COPD Diabetes mellitus Chronic lymphedema Chronically elevated troponin Chronic pain, was reportedly followed by pain management in [place]. GERD Septic prepatellar bursitis History of MRSA bacteremia Cardiomyopathy with prior ejection fraction of 25% (2013) Hepatitis B Obstructive sleep apnea Hypothyroidism History of IV drug abuse. . Past Surgical History AICD placement ([email or web address].lt) Rectal Surgery Left Thigh Biopsy Right femoral artery graft Cardiac catheterizations . Reported Medications Reported Meds & Active Scripts Active Deltasone 50 Mg Tab (Prednisone) 50 Mg Tab 50 Mg PO DAILY Metoprolol Tartrate 50 mg (Metoprolol Tartrate) 50 Mg Tab 50 Mg PO BID 30 Days Lasix (Furosemide) 40 Mg Tab 40 Mg PO BID 30 Days Reported Zithromax (Azithromycin) 200 Mg/5 Ml Lashell 200 Mg PO DAILY Catapres 0.1 mg (Clonidine HCl) 0.1 Mg Tab 1 Tab PO DAILY Levemir Insulin (Insulin Detemir) 100 Units/Ml Inj 60 Units SQ DAILY Truvada (Emtricitabine/Tenofovir) 200 Mg-300 Mg Tab 1 Tab PO DAILY Tivicay (Dolutegravir Sodium) 50 Mg Tab 1 Tab PO DAILY Aspirin 325 Mg Tab (Aspirin) 325 Mg Tab 325 Mg PO DAILY . Current Medications Medications (Trade) Dose Ordered Sig/Kaela Route Start Time Stop Time Status Last Admin (Aspirin) 325 mg DAILY PO 03/21/17 09:00 03/21/17 08:37 (Zithromax 200 Mg/5 ml Liq) 200 mg DAILY PO 03/21/17 09:00 (Truvada 200-300 Mg) 1 tab DAILY PO 03/21/17 09:00 03/21/17 08:37 (NS Flush) 2 ml BID IV FLUSH 03/20/17 21:00 03/21/17 08:37 (NS Flush) 2 ml UNSCH PRN IV FLUSH 03/20/17 14:00 (Heparin Inj) 5,000 units Q12HR SQ 03/20/17 21:00 03/20/17 22:18 (D50w (Vial) Inj) 50 ml UNSCH PRN IV PUSH 03/20/17 14:15 (Glucagon Inj) 1 mg UNSCH PRN OTHER 03/20/17 14:15 (NovoLOG SUPPLEMENTAL SCALE) 1 ACHS SLIDING SCALE SQ 03/20/17 17:00 03/21/17 08:46 (Duoneb Neb) 1 ampule Q4HR NEB INH 03/20/17 16:00 03/21/17 11:09 (Albuterol Neb) 2.5 mg Q2HR NEB PRN INH 03/20/17 16:00 (Lasix Inj) 40 mg BID@09,18 IV PUSH 03/20/17 18:00 03/21/17 08:37 (Levemir Inj) 60 units DAILY SQ 03/21/17 09:00 03/21/17 08:46 (Lopressor) 50 mg BID PO 03/20/17 21:00 03/21/17 08:37 ([place] 5-325 Mg) 1 tab Q6H PRN PO 03/20/17 16:45 03/20/17 20:08 (Roxicodone) 10 mg Q6H PRN PO 03/20/17 22:00 03/21/17 13:46 (SoluMEDROL INJ) 40 mg Q8HR IV PUSH 03/21/17 14:00 03/21/17 13:45 Family History Mother is alive. Father of heart disease in his 60s. Additional family history includes hypertension, diabetes, elevated cholesterol, arthritis and renal failure. . Substance Use Tobacco: Quit smoking 1 year ago. Alcohol: rare. Prescription med abuse: none known. Illicits:history of IV drug abuse uses cocaine, none recent per patient report. . Psychosocial History Mr. Thacker was born in [facility]. Moved to [place] in 1967. No experience. Completed 11th grade, no college. 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 He has been permanently disabled since 2004 secondary to health issues. He is , no children. He indicates though he raised many children sounds like nieces and nephews. His suffered a massive MS and stroke and has been out of onto a long term facility since 2008. . 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 . (Renetta Greene) Health Care Surrogate: Copy in medical record Date completed: 06/04/2014 . Health Care Surrogate(s): Patient is currently capacitated to make his own health care decisions. Designated health care surrogate named as Sebastien Thacker (brother) should he lose capacity. . Today's verbally stated goals: Patient desires continued aggressive care including FULL CODE. . Family/friends goals: No family present. . Ethical and Legal Issues Patient is currently capacitated to make his own health care decisions. Designated health care surrogate named as Sebastien Thacker (brother) should he lose capacity. . (Renetta Greene) Physical Exam Vital Signs Date Time Temp Pulse Resp B/P (MAP) Pulse Ox O2 Delivery O2 Flow Rate FiO2 03/21/17 12:00 96.7 75 20 128/83 (98) 94 03/21/17 08:43 96.2 84 21 130/89 (103) 93 03/21/17 07:37 96 Nasal Cannula 4.00 03/21/17 04:00 96.8 80 19 149/96 (113) 95 03/21/17 00:27 95 Nasal Cannula 4.00 03/21/17 00:00 96.5 89 18 146/96 (113) 95 03/20/17 20:00 97.5 101 21 165/104 (124) 94 03/20/17 18:00 97.8 98 20 149/104 (119) 92 03/20/17 17:35 86 20 182/100 (127) 96 Nasal Cannula 3.00 03/20/17 17:07 89 22 174/100 (124) 95 Nasal Cannula 3.00 03/20/17 15:26 89 22 169/74 (105) 96 Nasal Cannula 3.00 Exam CONSTITUTIONAL/GENERAL: This is an adequately nourished patient, mildly short of breath at rest. TUBES/LINES/DRAINS: oxygen via NC, PIV. SKIN: No jaundice, rashes, or lesions. Ecchymoses on upper extremities. No wounds seen anteriorly. Skin temperature appropriate. Not diaphoretic. HEAD: Atraumatic. Normocephalic. EYES: Pupils equal and round and reactive. Extraocular motions intact. No scleral icterus. No injection or drainage. Fundi not examined. ENT: Hearing grossly normal. Nose without bleeding or purulent drainage. NECK: Trachea midline. CARDIOVASCULAR: Regular rate and rhythm. murmur noted. RESPIRATORY/CHEST: Mildly labored respirations at rest. Diminished breath sounds bilaterally. GASTROINTESTINAL: Abdomen soft, non-tender, nondistended. No guarding. Bowel sounds present. GENITOURINARY: Without palpable bladder distension. MUSCULOSKELETAL: Extremities with significant chronic lymphedema. Well healed scar noted right UE. LYMPHATICS: No palpable cervical or supraclavicular adenopathy. NEUROLOGICAL: Awake and alert. Motor and sensory grossly within normal limits. Follows commands. Cognitively sharp. Moves all extremities. PSYCHIATRIC: Denies anxiety today. . (Renetta Greene) Diagnostic Tests Laboratory Laboratory Tests Test 03/20/17 10:40 03/20/17 11:10 03/20/17 11:40 03/20/17 23:33 White Blood Count 4.0 TH/MM3 (4.0-11.0) Red Blood Count 3.70 MIL/MM3 (4.50-5.90) Hemoglobin 11.6 GM/DL (13.0-17.0) Hematocrit 37.3 % (39.0-51.0) Mean Corpuscular Volume 100.9 FL (80.0-100.0) Mean Corpuscular Hemoglobin 31.2 PG (27.0-34.0) Mean Corpuscular Hemoglobin Concent 31.0 % (32.0-36.0) Red Cell Distribution Width 17.3 % (11.6-17.2) Platelet Count 196 TH/MM3 (150-450) Mean Platelet Volume 7.6 FL (7.0-11.0) Neutrophils (%) (Auto) 59.3 % (16.0-70.0) Lymphocytes (%) (Auto) 25.4 % (9.0-44.0) Monocytes (%) (Auto) 13.0 % (0.0-8.0) Eosinophils (%) (Auto) 1.6 % (0.0-4.0) Basophils (%) (Auto) 0.7 % (0.0-2.0) Neutrophils # (Auto) 2.4 TH/MM3 (1.8-7.7) Lymphocytes # (Auto) 1.0 TH/MM3 (1.0-4.8) Monocytes # (Auto) 0.5 TH/MM3 (0-0.9) Eosinophils # (Auto) 0.1 TH/MM3 (0-0.4) Basophils # (Auto) 0.0 TH/MM3 (0-0.2) CBC Comment DIFF FINAL Differential Comment Blood Urea Nitrogen 26 MG/DL (7-18) Creatinine 2.35 MG/DL (0.60-1.30) Random Glucose 113 MG/DL (74-106) Total Protein 9.8 GM/DL (6.4-8.2) Albumin 2.5 GM/DL (3.4-5.0) Calcium Level 8.2 MG/DL (8.5-10.1) Alkaline Phosphatase 114 U/L (45-117) Aspartate Amino Transf (AST/SGOT) 66 U/L (15-37) Alanine Aminotransferase (ALT/SGPT) 64 U/L (12-78) Total Bilirubin 0.7 MG/DL (0.2-1.0) Sodium Level 137 MEQ/L (136-145) Potassium Level 4.6 MEQ/L (3.5-5.1) Chloride Level 103 MEQ/L (98-107) Carbon Dioxide Level 28.8 MEQ/L (21.0-32.0) Anion Gap 5 MEQ/L (5-15) Estimat Glomerular Filtration Rate 35 ML/MIN (>89) Magnesium Level 1.9 MG/DL (1.5-2.5) Total Creatine Kinase 143 U/L (39-308) Creatine Kinase MB 2.7 NG/ML (0.5-3.6) Troponin I 0.06 NG/ML (0.02-0.05) B-Type Natriuretic Peptide 1686 PG/ML (0-100) Urine Color YELLOW (YELLW/STRAW) Urine Turbidity CLEAR (CLEAR) Urine pH 6.0 (5.0-8.5) Urine Specific [place] 1.016 (1.002-1.035) Urine Protein 100 mg/dL (NEG-TRACE) Urine Glucose (UA) NEG mg/dL (NEG) Urine Ketones NEG mg/dL (NEG) Urine Occult Blood SMALL (NEG) Urine Nitrite NEG (NEG) Urine Bilirubin NEG (NEG) Urine Urobilinogen LESS THAN 2.0 MG/DL (LESS Urine Leukocyte Esterase NEG (NEG) Urine RBC 1 /hpf (0-3) Urine WBC 2 /hpf (0-5) Urine Squamous Epithelial Cells <1 /hpf (0-5) Urine Bacteria FEW /hpf (NONE) Microscopic Urinalysis Comment CULT NOT INDICATED Urine Opiates Screen NEG (NEG) Urine Barbiturates Screen NEG (NEG) Urine Amphetamines Screen NEG (NEG) Urine Benzodiazepines Screen NEG (NEG) Urine Cocaine Screen NEG (NEG) Urine Cannabinoids Screen NEG (NEG) Blood Gas Puncture Site RT RADIAL Blood Gas Patient Temperature 98.6 Blood Gas HCO3 29 mmol/L (22-26) Blood Gas Base Excess 1.9 mmol/L (-2-2) Blood Gas Oxygen Saturation 90 % (90-100) Arterial Blood pH 7.23 (7.380-7.420) Arterial Blood Partial Pressure CO2 71 mmHg (38-42) Arterial Blood Partial Pressure O2 76 mmHG (61-120) Arterial Blood Oxygen Content 13.2 Vol % (12.0-20.0) Arterial Blood Carboxyhemoglobin 3.3 % (0-4) Arterial Blood Methemoglobin 0.4 % (0-2) Blood Gas Hemoglobin 10.4 G/DL (12.0-16.0) Oxygen Delivery Device NASAL CANNULA Blood Gas Liter Flow 3 L/M Blood Gas Inspired Oxygen 32 % Nasal Screen MRSA (PCR) POSITIVE (NEGATIVE) Staphylococcus aureus (PCR)(LAB) POSITIVE (NEGATIVE) (Renetta Greene) Result Diagram: 03/20/17 1040 03/20/17 1040 Imaging Last Impressions Chest X-Ray 03/20/17 1046 Signed Impressions: Service Date/Time: Monday, March 20, 2017 11:03 - CONCLUSION: Moderate cardiac decompensation Daniel Flores MD . (Renetta Greene) Patient/Family Conference Present at Family Conference: Met with patient. No family present. Family Conference Time (mins): 40 Family Conference Location: Bedside Issues Discussed: * Palliative care role, purpose, approach * Additional medical, psychosocial, and spiritual history * Patients general health, functional status, and cognitive changes in the months leading up to the current hospitalization * Patient/family understanding of the current medical problems * Patient/family understanding of prognosis * Patients goals of care as best understood from advance directives and/or conversations and/or values * Current medical treatment options and benefits/burdens of those options * Likely scenarios comparing ongoing aggressive care with a transition to comfort measures only * Questions answered to the best of my ability * Palliative care contact information provided Patient goals remain aggressive including FULL CODE at this time. . (Renetta Greene) Assessment and Plan Disease Oriented Problem List: (1) DM (diabetes mellitus) (2) COPD exacerbation (3) CHF exacerbation (4) Hypertension (5) History of hepatitis C (6) Acute kidney injury superimposed on chronic kidney disease (7) HIV (human immunodeficiency virus infection) Symptom Scale: (1) Anxiety 0-10 Scale: 0 (2) Pain 0-10 Scale: 10 (3) Shortness of breath 0-10 Scale: 2 Pertinent Non-Medical Issues Psychosocial: , lives at [facility] after she suffered a stroke/MS in 2008. No children. Lives alone at [facility]. 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 Wagon Washer notified. Legal: Patient is currently capacitated to make his own health care decisions. Designated health care surrogate named as Sebastien Thacker (brother) should he lose capacity. Ethical issues impacting care: no known concerns at this time. . Important Contacts * Sebastien Thacker, brother: [phone] or [phone], fax [phone] * Eugenia Santos, niece: [phone] . Prognosis Mr. Thacker is a 56-year-old gentleman with HIV/AIDS, COPD, hepatitis B and C, chronic bilateral lower extremity lymphedema, diabetes, cardiomyopathy, sleep apnea, hypothyroidism, arthritis and chronic pain. Patient is admitted for COPD / CHF exacerbation and declining functional status. . Code Status: Full Code Plan * Patient is currently capacitated to make his own health care decisions. Designated health care surrogate named as Sebastien Thacker (brother) should he lose capacity. * FULL CODE. * Goals remain aggressive at this time including FULL CODE. * Desires dividing machine operator support, Wagon Washer Charanjit notified. * Discussed with Dr. Beal. * SYMPTOMS; Pain: likely due to chronic lymphedema and multiple comorbidities. Reports pain in abdomen, joints, chest and left arm. 03/26 today. Was on Oxycodone 10mg PO every 6 hours PRN Pain prior to admission. Will increase 10- 15mg PO every 6 hours, patient agrees. Added Dulcolax daily PRN constipation. Dyspnea: due to underlying COPD/CHF, heart disease. On Oxygen via NC. * Palliative care will continue to follow throughout hospital course to assist with pain and symptom management and clarification of treatment goals as needed. . (Renetta Greene) Thank you for the opportunity to participate in the care of Mr. Thacker. (Renetta Greene) Attestation To help prompt me to consider important information that might be impacting today's encounter and assessment, information from prior notes written by myself or my colleagues may have been "brought forward" into today's note. My signature on this note, however, is an attestation that I personally performed the exam, history, and/or decision-making noted today, and, unless otherwise indicated, the interactions with patient, family, and staff as well as the review of records all occurred today. I also attest that the listed assessment and stated plan reflect my best clinical judgment today based on the combination of historical information, prior notes, and today's exam/ interactions. When time spent is documented, it refers only to time spent today by the signer, or if indicated, combined time spent today by collaborating physician/nurse practitioner. (Renetta Greene) Collaborating MD Comments Chart reviewed. Case discussed with palliative care SIMULATION EDUCATOR. Above SIMULATION EDUCATOR note reviewed and I concur. . (Nicho Porter MD) Renetta Greene Mar 21, 2017 14:39 Nicho Porter MD Mar 24, 2017 18:33
[2017-03-21 15:05] LABS: BICARBONATE 32.1 MEQ/L (21.0-32.0); POTASSIUM 5.8 MEQ/L (3.5-5.1)
--- NOTE | 2017-03-21 15:27 | ECHRPT ---
Indication: heart failure CONCLUSIONS The left ventricular systolic function is severely reduced with an estimated ejection fraction in th e range of 20-25%. Moderately dilated left ventricle. Wall thickness is normal. There is global left ventricular dysfunction. The right ventricle is moderately dilated. The left atrial size is mildly dilated. The right atrial size is mildly dilated. Moderate mitral valve regurgitation. Aortic valve sclerosis is present. Trace aortic valve regurgitation. There is moderate tricuspid regurgitation. The estimated pulmonary arterial pressure is 57.3 mmHg. Mild pulmonary valve regurgitation. Dilated inferior vena cava with poor inspiration collapse consistent with elevated right atrial pres sure. The left ventricular systolic function is severely reduced with an estimated ejection fraction in th e range of 20-25%. Moderately dilated left ventricle. Wall thickness is normal. There is global left ventricular dysfunction. The right ventricle is moderately dilated. The left atrial size is mildly dilated. The right atrial size is mildly dilated. Moderate mitral valve regurgitation. Aortic valve sclerosis is present. Trace aortic valve regurgitation. There is moderate tricuspid regurgitation. The estimated pulmonary arterial pressure is 57.3 mmHg. Mild pulmonary valve regurgitation. Dilated inferior vena cava with poor inspiration collapse consistent with elevated right atrial pres sure. BP: 156 / 90 HR: 112 Rhythm: Sinus MEASUREMENTS (Male / Female) Normal Values Technical Quality:Good 2D ECHO LV Diastolic Diameter PLAX 7.8 cm 4.2 - 5.9 / 3.9 - 5.3 cm LV Systolic Diameter PLAX 6.9 cm IVS Diastolic Thickness 1.2 cm 0.6 - 1.0 / 0.6 - 0.9 cm LVPW Diastolic Thickness 1.2 cm 0.6 - 1.0 / 0.6 - 0.9 cm LV Relative Wall Thickness 0.3 RV Internal Dim ED PLAX 3.4 cm LVOT Diameter 2.5 cm LA Systolic Diameter LX 4.3 cm 3.0 - 4.0 / 2.7 - 3.8 cm LV Ejection Fraction MOD 4C 22.5 % LV Cardiac Index MOD 4C 3982.4 cm/minm LV Ejection Fraction 4C AL 25.0 % LV Cardiac Index 4C AL 4594.6 cm/minm M-MODE Aortic Root Diameter MM 3.2 cm LA Systolic Diameter MM 4.0 cm LA Ao Ratio MM 1.3 AV Cusp Separation MM 2.3 cm DOPPLER AV Peak Velocity 137.0 cm/s AV Peak Gradient 7.5 mmHg LVOT Peak Velocity 80.1 cm/s LVOT Peak Gradient 2.6 mmHg AV Area Cont Eq pk 2.9 cm MV Area PHT 4.4 cm Mitral E Point Velocity 90.3 cm/s Mitral A Point Velocity 73.1 cm/s Mitral E to A Ratio 1.2 LV E' Lateral Velocity 7.3 cm/s Mitral E to LV E' Lateral Ratio 12.4 LV E' Septal Velocity 4.1 cm/s Mitral E to LV E' Septal Ratio 22.1 TR Peak Velocity 344.0 cm/s TR Peak Gradient 47.3 mmHg Right Atrial Pressure 10.0 mmHg Pulmonary Artery Systolic Pressu 57.3 mmHg Right Ventricular Systolic Press 57.3 mmHg PV Peak Velocity 124.0 cm/s PV Peak Gradient 6.2 mmHg FINDINGS LEFT VENTRICLE The left ventricular systolic function is severely reduced with an estimated ejection fraction in th e range of 20-25%. Moderately dilated left ventricle. Wall thickness is normal. There is global left ventricular dysfunction. RIGHT VENTRICLE The right ventricle is moderately dilated. LEFT ATRIUM The left atrial size is mildly dilated. RIGHT ATRIUM The right atrial size is mildly dilated. ATRIAL SEPTUM Normal atrial septal thickness without atrial level shunting by limited color doppler interrogation. AORTA The aortic root and proximal ascending aorta are normal in size on limited imaging. MITRAL VALVE Moderate mitral valve regurgitation. AORTIC VALVE Aortic valve sclerosis is present. Trace aortic valve regurgitation. TRICUSPID VALVE There is moderate tricuspid regurgitation. The estimated pulmonary arterial pressure is 57.3 mmHg. PULMONARY VALVE Mild pulmonary valve regurgitation. VESSELS Dilated inferior vena cava with poor inspiration collapse consistent with elevated right atrial pres sure. PERICARDIUM No pericardial effusion. Gunner Ny MD, FACC (Electronically Signed) Final Date:21 March 2017 15:25
[2017-03-21] MEDS ORDERED: BISACODYL EC 5 MG TABEC PO PRN (15:30)
--- NOTE | 2017-03-21 18:01 | PD.CARD.PN ---
Subjective Subjective Remarks C/o SOB, still w significant edema, L shoulder pain Objective Medications Administered Medications Medications (Trade) Dose Ordered Sig/Kaela Route PRN Reason Start Time Stop Time Status Last Admin Dose Admin Aspirin (Aspirin) 325 mg DAILY PO 03/21/17 09:00 03/21/17 08:37 Emtricitabine/ Tenofovir (Truvada 200-300 Mg) 1 tab DAILY PO 03/21/17 09:00 03/21/17 08:37 Sodium Chloride (NS Flush) 2 ml BID IV FLUSH 03/20/17 21:00 03/21/17 08:37 Heparin Sodium (Porcine) (Heparin Inj) 5,000 units Q12HR SQ 03/20/17 21:00 03/20/17 22:18 Insulin Aspart (NovoLOG SUPPLEMENTAL SCALE) 1 ACHS SLIDING SCALE SQ 03/20/17 17:00 03/21/17 17:00 Albuterol/ Ipratropium (Duoneb Neb) 1 ampule Q4HR NEB INH 03/20/17 16:00 03/21/17 17:11 Furosemide (Lasix Inj) 40 mg BID@,18 IV PUSH 03/20/17 18:00 03/21/17 16:56 Insulin Detemir (Levemir Inj) 60 units DAILY SQ 03/21/17 09:00 03/21/17 08:46 Metoprolol Tartrate (Lopressor) 50 mg BID PO 03/20/17 21:00 03/21/17 08:37 Oxycodone HCl (Roxicodone) 10 mg Q6H PRN PO pain 1-5 03/20/17 22:00 03/21/17 13:46 Methylprednisolone Sodium Succinate (SoluMEDROL INJ) 40 mg Q8HR IV PUSH 03/21/17 14:00 03/21/17 13:45 Vital Signs / I&O Vital Signs Date Time Temp Pulse Resp B/P (MAP) Pulse Ox O2 Delivery O2 Flow Rate FiO2 03/21/17 16:43 97.7 77 19 131/84 (100) 95 03/21/17 12:00 96.7 75 20 128/83 (98) 94 03/21/17 08:43 96.2 84 21 130/89 (103) 93 03/21/17 07:37 96 Nasal Cannula 4.00 03/21/17 04:00 96.8 80 19 149/96 (113) 95 03/21/17 00:27 95 Nasal Cannula 4.00 03/21/17 00:00 96.5 89 18 146/96 (113) 95 03/20/17 20:00 97.5 101 21 165/104 (124) 94 03/20/17 18:00 97.8 98 20 149/104 (119) 92 I/O 03/20/17 03/20/17 03/20/17 03/21/17 03/21/17 03/21/17 07:00 15:00 23:00 07:00 15:00 23:00 Intake Total 440 ml 0 ml Output Total 700 ml 300 ml Balance -260 ml -300 ml Intake Oral 440 ml 0 ml Output Urine Total 700 ml 300 ml Physical Exam GENERAL: In mild resp distress SKIN: Warm and dry. HEAD: Normocephalic. EYES: No scleral icterus. No injection or drainage. NECK: Supple, trachea midline. No JVD or lymphadenopathy. CARDIOVASCULAR: Regular rate and rhythm without murmurs, gallops, or rubs. RESPIRATORY: Breath sounds equal bilaterally. No accessory muscle use. Few rhonchi. GASTROINTESTINAL: Abdomen soft, non-tender, nondistended. MUSCULOSKELETAL: No cyanosis, bilateral lymphedema. Laboratory Laboratory Tests Test 03/20/17 23:33 03/21/17 13:59 Nasal Screen MRSA (PCR) POSITIVE Staphylococcus aureus (PCR)(LAB) POSITIVE Blood Urea Nitrogen 33 MG/DL Creatinine 2.57 MG/DL Random Glucose 135 MG/DL Calcium Level 8.4 MG/DL Sodium Level 139 MEQ/L Potassium Level 5.8 MEQ/L Chloride Level 104 MEQ/L Carbon Dioxide Level 32.1 MEQ/L Anion Gap 3 MEQ/L Estimat Glomerular Filtration Rate 31 ML/MIN Assessment and Plan Problem List: (1) CHF (congestive heart failure) ICD Codes: I50.9 - CHF (congestive heart failure) Status: Chronic (2) COPD (chronic obstructive pulmonary disease) ICD Codes: J44.9 - COPD (chronic obstructive pulmonary disease) Status: Chronic (3) DM (diabetes mellitus) ICD Codes: E11.9 - DM (diabetes mellitus) Status: Chronic (4) Hypertension ICD Codes: I10 - Hypertension Status: Chronic (5) HIV (human immunodeficiency virus infection) ICD Codes: Z21 - HIV (human immunodeficiency virus infection) Status: Chronic Assessment and Plan Continue current program. Tx for CHF and COPD exacerbation. Overall prognosis poor due to multiple comorbidities. Palliative care consulted. Sudeep Chavez MD Mar 21, 2017 18:01
[2017-03-22] VITALS (9 sets, daily range): BP systolic 114–136; BP diastolic 76–88; PULSE 69–77; RESP 18–19; TEMP 96.3–97.8; O2SAT 93–100
[2017-03-22] MEDS: RESP: ALBUTEROL 2.5 MG/IPRATROPIUM 0.5 MG NEB (SCH) INH ×6 (00:21→19:19)
[2017-03-22] MEDS: methylPREDNISolone SOD SUCC 125 MG/2 ML VIAL IV PUSH SCH (05:42)
[2017-03-22] MEDS: INSULIN ASPART SUPPLEMENTAL SCALE SQ SCH ×4 (08:00→21:00)
[2017-03-22] MEDS: EMTRICITABINE/TENOFOVIR 200 MG/300 MG TAB PO SCH (09:02)
[2017-03-22] MEDS: DOLUTEGRAVIR SODIUM 50 MG TAB PO SCH (09:02)
[2017-03-22] MEDS: INSULIN DETEMIR 100 UNITS/ML VIAL SQ SCH (09:02)
[2017-03-22] MEDS: AZITHROMYCIN SUSP 200 MG/5 ML 15 ML BTL PO SCH (09:02)
[2017-03-22] MEDS: METOPROLOL TARTRATE 50 MG TAB PO SCH ×2 (09:02→21:24)
[2017-03-22] MEDS: HEPARIN SODIUM - SQ 10,000 UNITS/ML VIAL SQ SCH ×2 (09:03→21:24)
[2017-03-22] MEDS: ASPIRIN 325 MG TAB PO SCH (09:03)
[2017-03-22] MEDS: FUROSEMIDE 40 MG/4 ML VIAL IV PUSH SCH (09:03)
[2017-03-22] MEDS: SODIUM CHLORIDE 0.9% FLUSH 10 ML FLUSH IV FLUSH SCH (09:17)
--- NOTE | 2017-03-22 09:19 | HHI.PR ---
Subjective Remarks Breathing status is back to baseline. No labs this morning yet. WARNER RN. Objective Vitals Vital Signs Date Time Temp Pulse Resp B/P (MAP) Pulse Ox O2 Delivery O2 Flow Rate FiO2 03/22/17 08:52 96.7 72 19 121/88 (99) 93 03/22/17 07:34 96 Nasal Cannula 4.00 03/22/17 04:00 96.3 74 19 127/79 (95) 99 03/22/17 00:23 97 Nasal Cannula 4.00 03/22/17 00:00 96.6 69 19 136/77 (96) 100 03/21/17 20:00 96.5 126 22 142/99 (113) 100 03/21/17 16:43 97.7 77 19 131/84 (100) 95 03/21/17 12:00 96.7 75 20 128/83 (98) 94 I/O 03/21/17 03/21/17 03/21/17 03/22/17 03/22/17 03/22/17 07:00 15:00 23:00 07:00 15:00 23:00 Intake Total 0 ml 1316 ml 240 ml Output Total 300 ml 400 ml Balance -300 ml 916 ml 240 ml Intake Oral 0 ml 1316 ml 240 ml Output Urine Total 300 ml 400 ml # Voids 1 # Bowel Movements 1 Result Diagram: 03/20/17 1040 03/21/17 1359 Objective Remarks GENERAL: Morbidly obese male in no acute distress. SKIN: Severe lymphedema changes bilateral lower extremities. CARDIOVASCULAR: Regular rate and rhythm without murmurs, gallops, or rubs. RESPIRATORY: Movement is fair. Markedly diminished breath sounds at the bases bilaterally, otherwise clear to auscultation. GASTROINTESTINAL: Abdomen obese, soft, nontender. MUSCULOSKELETAL: Bilateral lower extremity with severe lymphedema, right much worse than the left. NEUROLOGICAL: Somnolent. Normal speech. A/P Problem List: (1) Acute on chronic systolic (congestive) heart failure ICD Code: I50.23 - Acute on chronic systolic (congestive) heart failure (2) COPD exacerbation ICD Code: J44.1 - COPD exacerbation Status: Acute (3) Hypertension ICD Code: I10 - Hypertension Status: Chronic (4) Chronic acquired lymphedema ICD Code: I89.0 - Chronic acquired lymphedema Status: Chronic (5) DM (diabetes mellitus) ICD Code: E11.9 - DM (diabetes mellitus) Status: Chronic (6) HIV (human immunodeficiency virus infection) ICD Code: Z21 - HIV (human immunodeficiency virus infection) Status: Chronic Assessment and Plan In Brief this is a 56-year-old male with multiple, severe comorbid conditions admitted with acute on chronic systolic CHF, COPD exacerbation, and acute on chronic renal failure. The patient just returned in the [facility]. He reports recent history of AICD placement and cardiac arrest 3 weeks ago. He is being treated for CHF and COPD exacerbation. His kidney functions worsened, unclear what his baseline is. Nephrology consulted. Discharge pending on his renal functions and stability of his breathing status. He is transitioned to oral medications today. Acute on chronic systolic CHF: History of AICD placement for severely reduced EF. Reportedly had cardiac arrest 3 weeks ago. - Patient did not want to be on Bumex. He was given lasix IV 40 mg BID. Transition to oral today. - Fluid restriction - Continue metoprolol, aspirin. Apparently allergic to alicja inhibitors. - Cardiology following. 2-D echocardiogram shows global dysfunction with LVEF of 20-25%. Acute COPD exacerbation: No signs of infectious process currently. Patient attributes this to the change in weather. He just returned to the [facility] from [place]. - S/P Solu-Medrol IV. Appreciate pulmonology following. Palliative care consulted. - Supplemental oxygen as needed - Bronchodilators as needed. - Transition to oral steroids today. Acute on chronic renal failure: Unsure what his new baseline is since he has been out of the area for a couple of years. -Worsening. Likely due to diuretic use. However also hyperkalemic today. - Nephrology consulted. Since symptoms improving, transition to oral Lasix. Diabetes mellitus: type 2 - Lantus 60 units daily - SSI with Accu-Cheks. Chronic pain: Patient reports exacerbation of his pain. He requested IV pain medication. I have no objective evidence that he requires IV pain medication at this time. He was seen by palliative care. Agree with increase in oxycodone to help with his pain. HIV: Continue antivirals GI prophylaxis: Stool softener PRN constipation. DVT PPx: Patient refused heparin for DVT prophylaxis. He was counseled on the possibility of DVT or even from PE. Emeterio Beal MD Mar 22, 2017 09:19
[2017-03-22 11:22] LABS: HEMATOCRIT 37.1 % (39.0-51.0); MEAN CELL VOLUME 101.2 FL (80.0-100.0); MEAN CORPUSCULAR HEMOGLOBIN 30.8 PG (27.0-34.0); MEAN CORPUSCULAR HGB CONC 30.4 % (32.0-36.0); PLATELET COUNT 161 TH/MM3 (150-450); RED BLOOD COUNT 3.66 MIL/MM3 (4.50-5.90); RED CELL DISTRIBUTION WIDTH 18.1 % (11.6-17.2); REVIEW FLAG FINAL; WHITE BLOOD COUNT 3.9 TH/MM3 (4.0-11.0)
[2017-03-22 11:57] LABS: BICARBONATE 29.9 MEQ/L (21.0-32.0); POTASSIUM 6.3 MEQ/L (3.5-5.1)
--- NOTE | 2017-03-22 12:43 | PD.CARD.PN ---
Subjective Subjective Remarks No CP, less SOB, diuresed Objective Medications Administered Medications Medications (Trade) Dose Ordered Sig/Kaela Route PRN Reason Start Time Stop Time Status Last Admin Dose Admin Aspirin (Aspirin) 325 mg DAILY PO 03/21/17 09:00 03/22/17 09:03 Azithromycin (Zithromax 200 Mg/5 ml Liq) 200 mg DAILY PO 03/21/17 09:00 03/22/17 09:02 Emtricitabine/ Tenofovir (Truvada 200-300 Mg) 1 tab DAILY PO 03/21/17 09:00 03/22/17 09:02 Sodium Chloride (NS Flush) 2 ml BID IV FLUSH 03/20/17 21:00 03/22/17 09:17 Heparin Sodium (Porcine) (Heparin Inj) 5,000 units Q12HR SQ 03/20/17 21:00 03/22/17 09:03 Insulin Aspart (NovoLOG SUPPLEMENTAL SCALE) 1 ACHS SLIDING SCALE SQ 03/20/17 17:00 03/21/17 20:46 Albuterol/ Ipratropium (Duoneb Neb) 1 ampule Q4HR NEB INH 03/20/17 16:00 03/22/17 12:05 Insulin Detemir (Levemir Inj) 60 units DAILY SQ 03/21/17 09:00 03/22/17 09:02 Metoprolol Tartrate (Lopressor) 50 mg BID PO 03/20/17 21:00 03/22/17 09:02 Oxycodone HCl (Roxicodone) 10 mg Q6H PRN PO pain 1-5 03/20/17 22:00 03/21/17 13:46 Methylprednisolone Sodium Succinate (SoluMEDROL INJ) 40 mg Q8HR IV PUSH 03/21/17 14:00 03/22/17 05:42 Oxycodone HCl (Roxicodone) 15 mg Q6H PRN PO pain 6-10 03/21/17 15:30 03/22/17 10:43 Vital Signs / I&O Vital Signs Date Time Temp Pulse Resp B/P (MAP) Pulse Ox O2 Delivery O2 Flow Rate FiO2 03/22/17 08:52 96.7 72 19 121/88 (99) 93 03/22/17 07:34 96 Nasal Cannula 4.00 03/22/17 04:00 96.3 74 19 127/79 (95) 99 03/22/17 00:23 97 Nasal Cannula 4.00 03/22/17 00:00 96.6 69 19 136/77 (96) 100 03/21/17 20:00 96.5 126 22 142/99 (113) 100 03/21/17 16:43 97.7 77 19 131/84 (100) 95 I/O 03/21/17 03/21/17 03/21/17 03/22/17 03/22/17 03/22/17 07:00 15:00 23:00 07:00 15:00 23:00 Intake Total 0 ml 1316 ml 240 ml Output Total 300 ml 400 ml Balance -300 ml 916 ml 240 ml Intake Oral 0 ml 1316 ml 240 ml Output Urine Total 300 ml 400 ml # Voids 1 # Bowel Movements 1 Physical Exam GENERAL: In NAD. SKIN: Warm and dry. HEAD: Normocephalic. EYES: No scleral icterus. No injection or drainage. NECK: Supple, trachea midline. No JVD or lymphadenopathy. CARDIOVASCULAR: Regular rate and rhythm without murmurs, gallops, or rubs. RESPIRATORY: Breath sounds equal bilaterally. No accessory muscle use. Distant BS. GASTROINTESTINAL: Abdomen soft, non-tender, nondistended. MUSCULOSKELETAL: No cyanosis, bilateral lymphedema. Laboratory Laboratory Tests Test 03/21/17 13:59 03/22/17 10:31 Blood Urea Nitrogen 33 MG/DL 49 MG/DL Creatinine 2.57 MG/DL 3.09 MG/DL Random Glucose 135 MG/DL 179 MG/DL Calcium Level 8.4 MG/DL 8.1 MG/DL Sodium Level 139 MEQ/L 135 MEQ/L Potassium Level 5.8 MEQ/L 6.3 MEQ/L Chloride Level 104 MEQ/L 103 MEQ/L Carbon Dioxide Level 32.1 MEQ/L 29.9 MEQ/L Anion Gap 3 MEQ/L 2 MEQ/L Estimat Glomerular Filtration Rate 31 ML/MIN 25 ML/MIN White Blood Count 3.9 TH/MM3 Red Blood Count 3.66 MIL/MM3 Hemoglobin 11.3 GM/DL Hematocrit 37.1 % Mean Corpuscular Volume 101.2 FL Mean Corpuscular Hemoglobin 30.8 PG Mean Corpuscular Hemoglobin Concent 30.4 % Red Cell Distribution Width 18.1 % Platelet Count 161 TH/MM3 Mean Platelet Volume 8.1 FL B-Type Natriuretic Peptide 3182 PG/ML Assessment and Plan Problem List: (1) CHF (congestive heart failure) ICD Codes: I50.9 - CHF (congestive heart failure) Status: Chronic (2) COPD (chronic obstructive pulmonary disease) ICD Codes: J44.9 - COPD (chronic obstructive pulmonary disease) Status: Chronic (3) DM (diabetes mellitus) ICD Codes: E11.9 - DM (diabetes mellitus) Status: Chronic (4) Hypertension ICD Codes: I10 - Hypertension Status: Chronic (5) HIV (human immunodeficiency virus infection) ICD Codes: Z21 - HIV (human immunodeficiency virus infection) Status: Chronic Assessment and Plan Some improvement, still edematous. Continue therapy for CHF including diuresis and beta sofya. Continue therapy for COPD exacerbation. Overall prognosis poor due to multiple comorbidities. Palliative care consulted. Sudeep Chavez MD Mar 22, 2017 12:43
[2017-03-22] MEDS ORDERED: SODIUM BICARBONATE 8.4% INJ 50 MEQ/50 ML SYR IV PUSH ONE (12:45)
[2017-03-22] MEDS ORDERED: SODIUM POLYSTYRENE SULFONATE SUSP 15 GM/60 ML CUP PO ONE (12:45)
--- NOTE | 2017-03-22 13:16 | MB ---
cc: JUSTIN MELTON MD DATE OF CONSULTATION 03/22/2017 REASON FOR CONSULTATION Chronic kidney disease, acute kidney injury and hyperkalemia for evaluation. HISTORY OF PRESENT ILLNESS This is a 56-year-old male with a past medical history of ischemic heart disease, congestive heart failure, history of HIV, hepatitis C, chronic obstructive pulmonary disease, diabetes mellitus, chronic lymphedema of the legs, and chronic kidney disease who came to the hospital with a complaint of shortness of breath. I was called to see the patient because of chronic kidney disease, elevated creatinine and high potassium level. The patient has a known history of chronic kidney disease. He has a baseline creatinine of around 2.1-2.3 according to the patient. He had creatinine of 1.5 in 2014, but he moved to [place] and he was following with a kiln burner there and according to him, the creatinine was 2.1-2.3. The patient recently moved here about a week ago. He has this worsening shortness of breath. Denies any chest pain. Has mild cough. There is no sputum. No history of nausea or vomiting. No history of diarrhea and denies any dysuria, hematuria, difficulty passing urine. He did notice that he has decreased urine output. PAST MEDICAL HISTORY 1. Hypertension 2. Ischemic heart disease 3. Congestive heart failure 4. Chronic obstructive pulmonary disease 5. Hepatitis C 6. Chronic lymphedema of the legs 7. Chronic kidney disease 8. HIV PAST SURGICAL HISTORY 1. Left thigh biopsy 2. AICD placement 3. Rectal surgery REVIEW OF SYSTEMS The patient has generalized weakness, feeling tired, has shortness of breath which has been getting worse. There is mild cough, but there is no sputum. No chest pain. No palpitation. No nausea or vomiting. No abdominal pain. No history of diarrhea. No dysuria or hematuria. The patient has been passing urine. Denies using any nonsteroidal anti-inflammatory drugs. SOCIAL HISTORY The patient recently moved here. 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 He has been smoking a long time and stopped over a year ago. Denies any history of heavy alcoholism. FAMILY HISTORY Noncontributory ALLERGIES He is allergic to BENZAPRILI, CAPTOPRIL, ENALOPRIL, FOSINOPRIL, LISINOPRIL AND CANAPRIL. MEDICATIONS Currently he is on the following medications: 1. Metoprolol 50 mg b.i.d. 2. Aspirin 325 mg daily 3. Azithromycin 200 mg once a day 4. Truvada 200-300 mg p.o. daily 5. Levemir 60 units subcu daily 6. Lasix 40 mg twice a day 7. DuoNeb nebulizer one ampule 8. Heparin 5000 units subcu q. 12-hour 9. Prednisone 40 mg q.8 h. 10. Insulin sliding scale 11. Roxicodone as needed PHYSICAL EXAMINATION On examination, the patient is awake and alert. He is not in acute distress. VITAL SIGNS: His blood pressure is 121/88. His blood pressure is slightly on the higher side with no hypotensive episode. Temperature is 96.7, oxygen saturation on 4 liters 93-96%. HEAD, EYES, EARS, NOSE, AND THROAT: Pupils are mid, constricted. Nonicteric sclerae, conjunctivae pale. NECK: Supple. JVD is slightly elevated. LUNGS: The patient has bilateral decreased air entry with basilar rales and occasional wheezing. HEART: S1, S2, regular rhythm. ABDOMEN: Distended, soft and lax. There is no tenderness. Bowel sounds positive. EXTREMITIES: He has bilateral lymphedema more on the right side. INVESTIGATIONS WBC count is 3.9, hemoglobin 11.3, platelet count 161. Sodium 135, potassium 6.3, chloride 103, bicarb 29.9, BUN 49, creatinine 3.0, glucose 179, calcium 8.1, BNP is 3182, phosphorus is 1.9, magnesium is 1.9, phosphorus is not done. Urinalysis is showing he has protein of 100. Toxicology screen was negative. IMAGING STUDIES The patient has a chest x-ray done which shows that he has an enlarged heart with some interstitial edema. Echocardiogram was done which shows an ejection fraction of 20-25%. ASSESSMENT/PLAN 1. Chronic kidney disease, acute kidney injury 2. Hyperkalemia 3. Congestive heart failure with low ejection fraction. 4. Fluid overload status 5. COPD with exacerbation 6. Hypertension 7. Diabetes mellitus 8. HIV with advanced disease The patient has some element of acute kidney injury along with the chronic kidney disease. The chronic kidney disease is most likely related to either hypertensive diabetic renal disease or possibility of HIV nephropathy and now there is some acute worsening. The potassium is also elevated and urine output is not very good. I will changed the Lasix and put him on Bumex and give him the treatment for hyperkalemia including Kayexalate and sodium bicarbonate. He is already on albuterol nebulizer and insulin sliding scale. Also get an ultrasound of the kidneys and follow the urine output and the BUN and creatinine. Thank you for the consultation. I will follow the patient while he is in the hospital. MD YUNI Thomas/SALVATORE /12:32 PM /12:56 PM
--- NOTE | 2017-03-22 14:54 | RADRPT ---
EXAM DATE/TIME: 03/22/2017 13:22 [facility] COMPARISON: US KIDNEY/RENAL/BLADDER, December 14, 2013, 17:44. INDICATIONS : Increased BUN/Creatinine. MEDICAL HISTORY : Myocardial infarction. Congestive heart failure. Chronic obstructive pulmonary disease. Hypothyroidism. Cardiomyopathy. Coronary artery disease. Irregular heartbeat. Hypertension. Sleep apnea. GERD. Renal disease. Rheumatoid arthritis. Gout. Diabetes. Depression. Anxiety. PTSD. Ly mphoma. Chronic lymphedema. Measles. Hepatitis C and B. IV drug use. Blood transfusion. HIV. MRSA. VR E. SURGICAL HISTORY : Right femoral arterial graft from [facility]. Internal defibrillator. Rectal florecita tony. Left thigh biopsy. Cardiac catheterization. ENCOUNTER: Initial ACUITY: 1 day PAIN SCORE: 0/10 LOCATION: Bilateral flank MEASUREMENTS: RIGHT KIDNEY: 11.4 x x 6.0 x 5.6 cm LEFT KIDNEY: 13.6 x 6.2 x 5.3 cm FINDINGS: RIGHT KIDNEY: Diffusely increased cortical echogenicity. Stable appearance of mild prominence of the central renal pelvis. No gross mass, renal calculi or new hydronephrosis. LEFT KIDNEY: Diffusely increased cortical echogenicity. Stable appearance of mild prominence of t he central renal pelvis. No gross mass, renal calculi or new hydronephrosis. BLADDER: Within normal limits given the degree of distension. Incidental note is made of a small left pleural effusion. CONCLUSION: 1. Stable sonographic appearance of the kidneys with diffuse cortical echogenicity consistent with me dical renal disease and stable mild prominence of the central renal pelves. 2. Incidental note of small left pleural effusion. Robert Gutierrez MD on March 22, 2017 at 14:50 Board Certified Radiologist. This report was verified electronically.
--- NOTE | 2017-03-22 17:35 | HHI.HCPN ---
Reason for visit a. To assist with evaluation and management of symptoms including: pain, dyspnea. b. To assist medical decision maker(s) with: better understanding of current medical conditions; weighing benefits/burdens of medical treatment options; making medical treatment decisions. . Subjective/Interval History Mr. Thacker is a 56 year old male with past medical history of COPD, CHF, HIV/AIDS , hepatitis B & C, chronic kidney disease, diabetes, CAD, sleep apnea, GERD and chronic lymphedema of the right lower extremity. He had an AICD placed 3 months ago because declining heart function. 3 weeks ago he went into cardiac arrest requiring CPR. Patient was admitted on 03/20/17 secondary to COPD exacerbation, CHF and acute on chronic kidney disease. Palliative care has been consulted for further clarifications of goals of care given multiple acute on chronic comorbidities, acute complications and overall poor prognosis. Patient seen in his room. He was sitting up in bed in moderate distress, endorsing abdominal pain, shortness of breath at rest and on physical exertion and generalized weakness. Patient alert and oriented x self, place and situation. Intermittent forgetfulness noted. Patient reports that oxycodone increased from 10 mg to 15 mg has been ineffective. Patient has received oxycodone 15 mg x 2 doses today and one dose yesterday in addition to oxycodone 10 mg x 2 doses yesterday. He reports that his appetite has improved, he ate 100% of his lunch today. Patient verbalized not being happy with fluid restriction. Nephrology, Dr. Ga consulted for evaluation of chronic kidney disease, acute kidney injury and hyperkalemia. Ultrasound of kidneys and medical management recommended. BUN/creatinine on admission 26/2.35. BUN/ creatinine today 49/3.09. Renal ultrasound revealing stable appearance of the kidney with diffuse cortical echogenicity consistent with medical renal disease. Patient remains on O2 via nasal cannula at 4 L, oxygen saturation in the mid 90s. BNP has increased to 3182 today from 1686 two days ago. Patient remains afebrile, stable hemodynamically. Case discussed with bedside RN. . Family/friend interactions No family at bedside. . Advance Directives Health Care Surrogate: Copy in medical record Advance Directive Specifics Date completed: 06/04/2014 . Health Care Surrogate(s): Patient is currently capacitated to make his own health care decisions. Designated health care surrogate named as Sebastien Thacker (brother) should he lose capacity. . Significant change in goals: Goals remain unchanged. Aggressive management. . Objective Vital Signs Date Time Temp Pulse Resp B/P (MAP) Pulse Ox O2 Delivery O2 Flow Rate FiO2 03/22/17 16:28 97.7 75 19 136/78 (97) 94 03/22/17 15:20 97 Nasal Cannula 4.00 03/22/17 12:45 97.6 75 19 125/80 (95) 97 03/22/17 08:52 96.7 72 19 121/88 (99) 93 03/22/17 07:34 96 Nasal Cannula 4.00 03/22/17 04:00 96.3 74 19 127/79 (95) 99 03/22/17 00:23 97 Nasal Cannula 4.00 03/22/17 00:00 96.6 69 19 136/77 (96) 100 03/21/17 20:00 96.5 126 22 142/99 (113) 100 Intake & Output 03/22/17 03/22/17 07:00 19:00 Intake Total 590 ml Balance 590 ml Intake Oral 590 ml # Voids 1 Physical Exam CONSTITUTIONAL/GENERAL: This is an adequately nourished patient, mildly short of breath at rest. TUBES/LINES/DRAINS: oxygen via NC, PIV. SKIN: No jaundice, rashes. Ecchymoses on upper extremities. No wounds seen anteriorly. Skin temperature appropriate. Not diaphoretic. Skin thickening to bilateral lower extremities secondary to lymphedema, Right > left. HEAD: Atraumatic. Normocephalic. EYES: Pupils equal and round and reactive. Extraocular motions intact. No scleral icterus. No injection or drainage. Fundi not examined. ENT: Hearing grossly normal. Nose without bleeding or purulent drainage. Moist oral mucosa. NECK: Trachea midline. CARDIOVASCULAR: Regular rate and rhythm. murmur noted. RESPIRATORY/CHEST: Mildly labored respirations at rest. Diminished breath sounds bilaterally. GASTROINTESTINAL: Abdomen soft, round, large. Mildly tender to palpation. Bowel sounds present. GENITOURINARY: Without palpable bladder distension. MUSCULOSKELETAL: Extremities with significant chronic lymphedema. Well healed scar noted right UE. NEUROLOGICAL: Awake and alert. Motor and sensory grossly within normal limits. Follows commands. Intermittently confused. Moves all extremities. PSYCHIATRIC: Intermittent episodes of anxiety. Irritable at times. . Diagnostic Tests Laboratory Laboratory Tests Test 03/20/17 10:40 03/20/17 11:10 03/20/17 11:40 03/20/17 23:33 White Blood Count 4.0 TH/MM3 (4.0-11.0) Red Blood Count 3.70 MIL/MM3 (4.50-5.90) Hemoglobin 11.6 GM/DL (13.0-17.0) Hematocrit 37.3 % (39.0-51.0) Mean Corpuscular Volume 100.9 FL (80.0-100.0) Mean Corpuscular Hemoglobin 31.2 PG (27.0-34.0) Mean Corpuscular Hemoglobin Concent 31.0 % (32.0-36.0) Red Cell Distribution Width 17.3 % (11.6-17.2) Platelet Count 196 TH/MM3 (150-450) Mean Platelet Volume 7.6 FL (7.0-11.0) Neutrophils (%) (Auto) 59.3 % (16.0-70.0) Lymphocytes (%) (Auto) 25.4 % (9.0-44.0) Monocytes (%) (Auto) 13.0 % (0.0-8.0) Eosinophils (%) (Auto) 1.6 % (0.0-4.0) Basophils (%) (Auto) 0.7 % (0.0-2.0) Neutrophils # (Auto) 2.4 TH/MM3 (1.8-7.7) Lymphocytes # (Auto) 1.0 TH/MM3 (1.0-4.8) Monocytes # (Auto) 0.5 TH/MM3 (0-0.9) Eosinophils # (Auto) 0.1 TH/MM3 (0-0.4) Basophils # (Auto) 0.0 TH/MM3 (0-0.2) CBC Comment DIFF FINAL Differential Comment Blood Urea Nitrogen 26 MG/DL (7-18) Creatinine 2.35 MG/DL (0.60-1.30) Random Glucose 113 MG/DL (74-106) Total Protein 9.8 GM/DL (6.4-8.2) Albumin 2.5 GM/DL (3.4-5.0) Calcium Level 8.2 MG/DL (8.5-10.1) Alkaline Phosphatase 114 U/L (45-117) Aspartate Amino Transf (AST/SGOT) 66 U/L (15-37) Alanine Aminotransferase (ALT/SGPT) 64 U/L (12-78) Total Bilirubin 0.7 MG/DL (0.2-1.0) Sodium Level 137 MEQ/L (136-145) Potassium Level 4.6 MEQ/L (3.5-5.1) Chloride Level 103 MEQ/L (98-107) Carbon Dioxide Level 28.8 MEQ/L (21.0-32.0) Anion Gap 5 MEQ/L (5-15) Estimat Glomerular Filtration Rate 35 ML/MIN (>89) Magnesium Level 1.9 MG/DL (1.5-2.5) Total Creatine Kinase 143 U/L (39-308) Creatine Kinase MB 2.7 NG/ML (0.5-3.6) Troponin I 0.06 NG/ML (0.02-0.05) B-Type Natriuretic Peptide 1686 PG/ML (0-100) Urine Color YELLOW (YELLW/STRAW) Urine Turbidity CLEAR (CLEAR) Urine pH 6.0 (5.0-8.5) Urine Specific [place] 1.016 (1.002-1.035) Urine Protein 100 mg/dL (NEG-TRACE) Urine Glucose (UA) NEG mg/dL (NEG) Urine Ketones NEG mg/dL (NEG) Urine Occult Blood SMALL (NEG) Urine Nitrite NEG (NEG) Urine Bilirubin NEG (NEG) Urine Urobilinogen LESS THAN 2.0 MG/DL (LESS Urine Leukocyte Esterase NEG (NEG) Urine RBC 1 /hpf (0-3) Urine WBC 2 /hpf (0-5) Urine Squamous Epithelial Cells <1 /hpf (0-5) Urine Bacteria FEW /hpf (NONE) Microscopic Urinalysis Comment CULT NOT INDICATED Urine Opiates Screen NEG (NEG) Urine Barbiturates Screen NEG (NEG) Urine Amphetamines Screen NEG (NEG) Urine Benzodiazepines Screen NEG (NEG) Urine Cocaine Screen NEG (NEG) Urine Cannabinoids Screen NEG (NEG) Blood Gas Puncture Site RT RADIAL Blood Gas Patient Temperature 98.6 Blood Gas HCO3 29 mmol/L (22-26) Blood Gas Base Excess 1.9 mmol/L (-2-2) Blood Gas Oxygen Saturation 90 % (90-100) Arterial Blood pH 7.23 (7.380-7.420) Arterial Blood Partial Pressure CO2 71 mmHg (38-42) Arterial Blood Partial Pressure O2 76 mmHG (61-120) Arterial Blood Oxygen Content 13.2 Vol % (12.0-20.0) Arterial Blood Carboxyhemoglobin 3.3 % (0-4) Arterial Blood Methemoglobin 0.4 % (0-2) Blood Gas Hemoglobin 10.4 G/DL (12.0-16.0) Oxygen Delivery Device NASAL CANNULA Blood Gas Liter Flow 3 L/M Blood Gas Inspired Oxygen 32 % Nasal Screen MRSA (PCR) POSITIVE (NEGATIVE) Staphylococcus aureus (PCR)(LAB) POSITIVE (NEGATIVE) Test 03/21/17 13:59 03/22/17 10:31 Blood Urea Nitrogen 33 MG/DL (7-18) 49 MG/DL (7-18) Creatinine 2.57 MG/DL (0.60-1.30) 3.09 MG/DL (0.60-1.30) Random Glucose 135 MG/DL (74-106) 179 MG/DL (74-106) Calcium Level 8.4 MG/DL (8.5-10.1) 8.1 MG/DL (8.5-10.1) Sodium Level 139 MEQ/L (136-145) 135 MEQ/L (136-145) Potassium Level 5.8 MEQ/L (3.5-5.1) 6.3 MEQ/L (3.5-5.1) Chloride Level 104 MEQ/L (98-107) 103 MEQ/L (98-107) Carbon Dioxide Level 32.1 MEQ/L (21.0-32.0) 29.9 MEQ/L (21.0-32.0) Anion Gap 3 MEQ/L (5-15) 2 MEQ/L (5-15) Estimat Glomerular Filtration Rate 31 ML/MIN (>89) 25 ML/MIN (>89) White Blood Count 3.9 TH/MM3 (4.0-11.0) Red Blood Count 3.66 MIL/MM3 (4.50-5.90) Hemoglobin 11.3 GM/DL (13.0-17.0) Hematocrit 37.1 % (39.0-51.0) Mean Corpuscular Volume 101.2 FL (80.0-100.0) Mean Corpuscular Hemoglobin 30.8 PG (27.0-34.0) Mean Corpuscular Hemoglobin Concent 30.4 % (32.0-36.0) Red Cell Distribution Width 18.1 % (11.6-17.2) Platelet Count 161 TH/MM3 (150-450) Mean Platelet Volume 8.1 FL (7.0-11.0) B-Type Natriuretic Peptide 3182 PG/ML (0-100) Result Diagram: 03/22/17 1031 03/22/17 1031 Imaging Last 24 hours Impressions Renal Ultrasound 03/22/17 0000 Signed Impressions: Service Date/Time: Wednesday, March 22, 2017 13:22 - CONCLUSION: 1. Stable sonographic appearance of the kidneys with diffuse cortical echogenicity consistent with medical renal disease and stable mild prominence of the central renal pelves. 2. Incidental note of small left pleural effusion. Robert Gutierrez MD Assessment and Plan Disease Oriented Problem List: (1) COPD exacerbation (2) CHF exacerbation (3) Acute kidney injury superimposed on chronic kidney disease (4) DM (diabetes mellitus) (5) Hypertension (6) History of hepatitis C (7) HIV (human immunodeficiency virus infection) Symptom Scale: (1) Anxiety 0-10 Scale: 0 Comment: Exacerbated by pain and shortness of breath. (2) Pain 0-10 Scale: 4 Comment: Abdominal pain and lower extremities pain. (3) Shortness of breath 0-10 Scale: 2 Comment: Shortness of breath on physical exertion and at rest. Pertinent Non-Medical Issues Psychosocial: , [facility] after she suffered a [place] in 2008. No children. Lives alone at [facility]. 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 [employer] notified. Legal: Patient is currently capacitated to make his own health care decisions. Designated health care surrogate named as Sebastien Thacker (brother) should he lose capacity. Ethical issues impacting care: no known concerns at this time. . Important Contacts * Sebastien Thacker, brother: [phone] or [phone], fax [phone] * Eugenia Santos, niece: [phone] . Prognosis Mr. Thacker is a 56-year-old gentleman with HIV/AIDS, COPD, hepatitis B and C, chronic bilateral lower extremity lymphedema, diabetes, cardiomyopathy, sleep apnea, hypothyroidism, arthritis and chronic pain. Patient is admitted for COPD / CHF exacerbation and declining functional status. Patient at high risk for further complications, clinical decline and . Overall prognosis is poor. . Code Status: Full Code Plan * CODE STATUS: FULL code. * HEALTHCARE DECISION-MAKING: Patient participating in medical decision-making. He appears to have a fair insight into his multiple medical issues. Patient has designated his brother Sebastien Thacker as healthcare surrogate decision-maker should he lose capacity. * GOALS OF CARE: Patient electing aggressive management to include full code. He verbalized that he was "saved by CPR 3 weeks ago" and that he would like those interventions again. * SYMPTOMS: = Pain, multifactorial given burden of disease -chronic lymphedema, multiple comorbidities. Patient endorsing pain to abdominal lower extremities. Home regimen of oxycodone 10 mg PO q6hr PRN was adjusted yesterday, oxycodone was increased to 10-15 mg q6hr PRN for BT pain. Patient has received a total of 70 mg of Oxycodone in the past 24 hours with good effect. Patient reports that his pain is more controlled with the medication adjustment. No further recommendations at this time. = Dyspnea, secondary to underlying COPD/CHF. Currently on O2 via nasal cannula 4 L and fluid restriction. Patient reports that dyspnea has somewhat improved since yesterday. = Constipation, exacerbated by opioids and bedrest. Dulcolax available as needed. * Case discussed with bedside RN. * Palliative care contact information was provided to patient. * Palliative care will continue to follow-up for further clarifications of goals of care, pain and symptom management, as patient's clinical course continue to evolve. . Time Spent Total Floor Time (mins): 33 (Total time to include review of medical records, physical exam, bedside GOC conversation with patient, case discussion with bedside RN.) >50% Counseling/Coord of Care: Yes (total time to include review medical records, physical exam, conversation) Attestation To help prompt me to consider important information that might be impacting today's encounter and assessment, information from prior notes written by myself or my colleagues may have been "brought forward" into today's note. My signature on this note, however, is an attestation that I personally performed the exam, history, and/or decision-making noted today, and, unless otherwise indicated, the interactions with patient, family, and staff as well as the review of records all occurred today. I also attest that the listed assessment and stated plan reflect my best clinical judgment today based on the combination of historical information, prior notes, and today's exam/ interactions. When time spent is documented, it refers only to time spent today by the signer, or if indicated, combined time spent today by collaborating physician/nurse practitioner. Mariangel Burns Mar 22, 2017 17:35
[2017-03-22] MEDS ORDERED: FUROSEMIDE 40 MG TAB PO SCH (18:00)
[2017-03-22] MEDS: BUMETANIDE INJ 1 MG/4 ML VIAL IV PUSH SCH (18:11)
[2017-03-23] VITALS (7 sets, daily range): BP systolic 107–153; BP diastolic 69–88; PULSE 69–78; RESP 17–20; TEMP 96.4–97.9; O2SAT 95–99
[2017-03-23 06:23] LABS: HEMATOCRIT 37.5 % (39.0-51.0); MEAN CELL VOLUME 99.1 FL (80.0-100.0); MEAN CORPUSCULAR HEMOGLOBIN 30.6 PG (27.0-34.0); MEAN CORPUSCULAR HGB CONC 30.9 % (32.0-36.0); PLATELET COUNT 119 TH/MM3 (150-450); RED BLOOD COUNT 3.79 MIL/MM3 (4.50-5.90); REVIEW FLAG FINAL; WHITE BLOOD COUNT 3.9 TH/MM3 (4.0-11.0)
[2017-03-23 06:32] LABS: BICARBONATE 24.9 MEQ/L (21.0-32.0); POTASSIUM 5.9 MEQ/L (3.5-5.1)
[2017-03-23] MEDS: RESP: ALBUTEROL 2.5 MG/IPRATROPIUM 0.5 MG NEB (SCH) INH ×4 (08:00→19:30)
[2017-03-23] MEDS: INSULIN ASPART SUPPLEMENTAL SCALE SQ SCH ×4 (08:00→21:00)
[2017-03-23] MEDS: ASPIRIN 325 MG TAB PO SCH (08:21)
[2017-03-23] MEDS: INSULIN DETEMIR 100 UNITS/ML VIAL SQ SCH (08:21)
[2017-03-23] MEDS: DOLUTEGRAVIR SODIUM 50 MG TAB PO SCH (08:21)
[2017-03-23] MEDS: EMTRICITABINE/TENOFOVIR 200 MG/300 MG TAB PO SCH (08:21)
[2017-03-23] MEDS: METOPROLOL TARTRATE 50 MG TAB PO SCH ×2 (08:21→20:38)
[2017-03-23] MEDS: methylPREDNISolone SOD SUCC 40 MG/1 ML VIAL IV PUSH SCH (08:22)
[2017-03-23] MEDS: BUMETANIDE INJ 1 MG/4 ML VIAL IV PUSH SCH ×2 (08:22→17:41)
[2017-03-23] MEDS: SODIUM CHLORIDE 0.9% FLUSH 10 ML FLUSH IV FLUSH SCH ×2 (08:23→21:00)
[2017-03-23] MEDS: HEPARIN SODIUM - SQ 10,000 UNITS/ML VIAL SQ SCH ×2 (08:33→20:39)
--- NOTE | 2017-03-23 08:37 | HHI.PR ---
Subjective Remarks Pt complains of pain and requests his pain meds. States it is his chronic pain and it is not new pain. Denies any Chest pains or worsening SOB. Doesn't talk much and is more concerned about getting his pain medications. Discussed w RN, no concerns at this time and she will be giving him his meds Objective Vitals Vital Signs Date Time Temp Pulse Resp B/P (MAP) Pulse Ox O2 Delivery O2 Flow Rate FiO2 03/23/17 08:01 99 Nasal Cannula 4.00 03/23/17 04:00 96.5 69 18 127/78 (94) 99 03/23/17 01:27 Nasal Cannula 3.50 03/23/17 00:00 96.4 71 17 107/74 (85) 99 03/22/17 20:00 97.8 77 18 114/76 (89) 96 03/22/17 16:28 97.7 75 19 136/78 (97) 94 03/22/17 15:20 97 Nasal Cannula 4.00 03/22/17 12:45 97.6 75 19 125/80 (95) 97 03/22/17 08:52 96.7 72 19 121/88 (99) 93 I/O 03/22/17 03/22/17 03/22/17 03/23/17 03/23/17 03/23/17 07:00 15:00 23:00 07:00 15:00 23:00 Intake Total 240 ml 920 ml Output Total 400 ml Balance 240 ml 520 ml Intake Oral 240 ml 920 ml Output Urine Total 400 ml # Voids 1 4 # Bowel Movements 2 Result Diagram: 03/23/17 0550 03/23/17 0550 Imaging Last Impressions Renal Ultrasound 03/22/17 0000 Signed Impressions: Service Date/Time: Wednesday, March 22, 2017 13:22 - CONCLUSION: 1. Stable sonographic appearance of the kidneys with diffuse cortical echogenicity consistent with medical renal disease and stable mild prominence of the central renal pelves. 2. Incidental note of small left pleural effusion. Robert Gutierrez MD Chest X-Ray 03/20/17 1046 Signed Impressions: Service Date/Time: Monday, March 20, 2017 11:03 - CONCLUSION: Moderate cardiac decompensation Daniel Flores MD Objective Remarks GENERAL: Morbidly obese male in no acute distress. SKIN: Severe lymphedema changes bilateral lower extremities. CARDIOVASCULAR: Regular rate and rhythm without murmurs RESPIRATORY: Movement is fair. Markedly diminished breath sounds at the bases bilaterally, otherwise clear to auscultation. GASTROINTESTINAL: Abdomen obese, soft, nontender. MUSCULOSKELETAL: Bilateral lower extremity with severe lymphedema, right much worse than the left. NEUROLOGICAL: Somnolent. Normal speech. A/P Problem List: (1) Acute on chronic systolic (congestive) heart failure ICD Code: I50.23 - Acute on chronic systolic (congestive) heart failure (2) COPD exacerbation ICD Code: J44.1 - COPD exacerbation Status: Acute (3) Hypertension ICD Code: I10 - Hypertension Status: Chronic (4) Chronic acquired lymphedema ICD Code: I89.0 - Chronic acquired lymphedema Status: Chronic (5) DM (diabetes mellitus) ICD Code: E11.9 - DM (diabetes mellitus) Status: Chronic (6) HIV (human immunodeficiency virus infection) ICD Code: Z21 - HIV (human immunodeficiency virus infection) Status: Chronic Assessment and Plan In Brief this is a 56-year-old male with multiple, severe comorbid conditions admitted with acute on chronic systolic CHF, COPD exacerbation, and acute on chronic renal failure. The patient just returned in the [facility]. He reports recent history of AICD placement and cardiac arrest 3 weeks ago. He is being treated for CHF and COPD exacerbation. His kidney functions worsened, unclear what his baseline is. Nephrology following. Discharge pending on his renal functions and stability of his breathing status. Acute on chronic systolic CHF: History of AICD placement for severely reduced EF. Reportedly had cardiac arrest 3 weeks ago. - Apparently pt refusing some things regarding his care, initially not wanting to be on bumex however agreeable now. Nephrology has switched him to 2mg IV BID. continue - Fluid restriction - Continue metoprolol, aspirin. Apparently allergic to alicja inhibitors. - Cardiology following. 2-D echocardiogram shows global dysfunction with LVEF of 20-25%. Acute COPD exacerbation: No signs of infectious process currently. Patient attributes this to the change in weather. He just returned to the [facility] from [place]. - switched to Solu-Medrol IV daily per pulm. Appreciate pulmonology recs. Palliative care consulted. - Supplemental oxygen as needed - Bronchodilators as needed. Acute on chronic renal failure: Unsure what his new baseline is since he has been out of the area for a couple of years. - also hyperkalemic improving s/p kayexalate and bumex use. - Nephrology following. on IV bumex. Diabetes mellitus: type 2 - Lantus 60 units daily at home. ( here on levemir 60 units daily) - conitnue SSI with Accu-Cheks. Chronic pain: Patient reports exacerbation of his pain. apparently had been requesting IV pain medication. No clear/objective evidence that he requires IV pain medication at this time. He was seen by palliative care. Agree with increase in oxycodone to help with his pain. HIV: Continue antivirals GI prophylaxis: Stool softener PRN constipation. DVT PPx: Patient refused heparin for DVT prophylaxis. He was counseled on the possibility of DVT or even from PE. Discharge Planning d/c pending further clinical improvement and transition to po meds. Milagro Banegas MD Mar 23, 2017 08:37
[2017-03-23] MEDS ORDERED: SODIUM POLYSTYRENE SULFONATE SUSP 15 GM/60 ML CUP PO ONE (09:45)
--- NOTE | 2017-03-23 09:50 | HHI.NPPN ---
Subjective History of Present Illness 56-year-old male with a past medical history of ischemic heart disease, congestive heart failure, history of HIV, hepatitis C, chronic obstructive pulmonary disease, diabetes mellitus, chronic lymphedema of the legs, and chronic kidney disease who came to the hospital with a complaint of shortness of breath. I was called to see the patient because of chronic kidney disease, elevated creatinine and high potassium level. The patient has a known history of chronic kidney disease. He has a baseline creatinine of around 2.1-2.3 according to the patient. Additional Remarks Patient is alert, no SOB, with nasal cannula, eating Breakfast. Review of Systems General Constitutional: Fatigue Respiratory Lungs: SOB Cardiovascular Cardiac: Edema, [place] Objective Data Data Vital Signs Date Time Temp Pulse Resp B/P (MAP) Pulse Ox O2 Delivery O2 Flow Rate FiO2 03/23/17 08:01 99 Nasal Cannula 4.00 03/23/17 04:00 96.5 69 18 127/78 (94) 99 03/23/17 01:27 Nasal Cannula 3.50 03/23/17 00:00 96.4 71 17 107/74 (85) 99 03/22/17 20:00 97.8 77 18 114/76 (89) 96 03/22/17 16:28 97.7 75 19 136/78 (97) 94 03/22/17 15:20 97 Nasal Cannula 4.00 03/22/17 12:45 97.6 75 19 125/80 (95) 97 -: 03/23/17 0550 03/23/17 0550 Physical Exam General Appearance: No Acute Distress, Comfortable Eyes Eye Exam: Pupils Equal Throat Throat Exam: Oral Mucosa Hung[place] & Moist Neck Neck Exam: Neck Supple Pulmonary Resp Exam: No Distress, Crackles, Rhonchi, Decreased Bases, Diminished Breath Sounds Cardiology CV Exam: Regular, Normal Sinus Rhythm Gastrointestinal/Abdomen GI Exam: Soft, Non-Tender, Bowel Sounds Present, Distended Extremeties Extremities Exam: Moderate Edema, Pitting Edema, Dependent Edema (Bilateral lymphedema, more in Rt. leg.) Neurologic Neuro Exam: Alert, Awake, Oriented Psychiatric Psych Exam: Appropriate Responses Assessment/Plan Assessment Summary: MARION/Acute Renal Failure, Anemia of CKD, Fluid/Volume Overload, Hypertension, CKD Stage IV Electrolyte Assessment: Hyperkalemia Problem List: (1) Stage 4 chronic kidney disease ICD Codes: N18.4 - Chronic kidney disease, stage 4 (severe) (2) Acute kidney injury ICD Codes: N17.9 - Acute kidney failure, unspecified (3) Anemia ICD Codes: D64.9 - Anemia Status: Acute (4) AIDS ICD Codes: B20 - AIDS Status: Chronic (5) Hypothyroidism ICD Codes: E03.9 - Hypothyroidism Status: Chronic (6) Hypoxia ICD Codes: R09.02 - Hypoxia Status: Acute (7) Acute on chronic systolic (congestive) heart failure ICD Codes: I50.23 - Acute on chronic systolic (congestive) heart failure (8) Shortness of breath ICD Codes: R06.02 - Shortness of breath Status: Chronic (9) History of hepatitis C ICD Codes: Z86.19 - Personal history of other infectious and parasitic diseases Status: Acute (10) COPD (chronic obstructive pulmonary disease) ICD Codes: J44.9 - COPD (chronic obstructive pulmonary disease) Status: Chronic (11) Hyperkalemia ICD Codes: E87.5 - Hyperkalemia Status: Acute Plan Patient has stage 4 chronic kidney disease, most likely due to Hypertensive renal disease or HIV disease. Now develop some MARION and Hyperkalemia. Patient has been non oliguric. K is 5.9 now. Continue Bumex. Creatinine is same at 3.0, change the diet with low K, Kayexalate one dose. Follow the urine out put and BMP. Millicent Ga MD Mar 23, 2017 09:50
[2017-03-23] MEDS: AZITHROMYCIN SUSP 200 MG/5 ML 15 ML BTL PO SCH (10:40)
--- NOTE | 2017-03-23 16:46 | PD.CARD.PN ---
Subjective Subjective Remarks No CP, less SOB Objective Medications Administered Medications Medications (Trade) Dose Ordered Sig/Kaela Route PRN Reason Start Time Stop Time Status Last Admin Dose Admin Aspirin (Aspirin) 325 mg DAILY PO 03/21/17 09:00 03/23/17 08:21 Azithromycin (Zithromax 200 Mg/5 ml Liq) 200 mg DAILY PO 03/21/17 09:00 03/23/17 10:40 Emtricitabine/ Tenofovir (Truvada 200-300 Mg) 1 tab DAILY PO 03/21/17 09:00 03/23/17 08:21 Sodium Chloride (NS Flush) 2 ml BID IV FLUSH 03/20/17 21:00 03/23/17 08:23 Heparin Sodium (Porcine) (Heparin Inj) 5,000 units Q12HR SQ 03/20/17 21:00 03/22/17 21:24 Insulin Aspart (NovoLOG SUPPLEMENTAL SCALE) 1 ACHS SLIDING SCALE SQ 03/20/17 17:00 03/22/17 18:12 Insulin Detemir (Levemir Inj) 60 units DAILY SQ 03/21/17 09:00 03/23/17 08:21 Metoprolol Tartrate (Lopressor) 50 mg BID PO 03/20/17 21:00 03/23/17 08:21 Oxycodone HCl (Roxicodone) 10 mg Q6H PRN PO pain 1-5 03/20/17 22:00 03/21/17 13:46 Oxycodone HCl (Roxicodone) 15 mg Q6H PRN PO pain 6-10 03/21/17 15:30 03/23/17 14:42 Bumetanide (Bumex Inj) 2 mg BID@,18 IV PUSH 03/22/17 18:00 03/23/17 08:22 Albuterol/ Ipratropium (Duoneb Neb) 1 ampule QID NEB INH 03/22/17 16:00 03/23/17 08:00 Methylprednisolone Sodium Succinate (SoluMEDROL INJ) 40 mg DAILY IV PUSH 03/23/17 09:00 03/23/17 08:22 Vital Signs / I&O Vital Signs Date Time Temp Pulse Resp B/P (MAP) Pulse Ox O2 Delivery O2 Flow Rate FiO2 03/23/17 12:00 97.0 78 18 153/83 (106) 95 03/23/17 08:30 1.00 03/23/17 08:01 99 Nasal Cannula 4.00 03/23/17 04:00 96.5 69 18 127/78 (94) 99 03/23/17 01:27 Nasal Cannula 3.50 03/23/17 00:00 96.4 71 17 107/74 (85) 99 03/22/17 20:00 97.8 77 18 114/76 (89) 96 I/O 03/22/17 03/22/17 03/22/17 03/23/17 03/23/17 03/23/17 07:00 15:00 23:00 07:00 15:00 23:00 Intake Total 240 ml 920 ml Output Total 400 ml Balance 240 ml 520 ml Intake Oral 240 ml 920 ml Output Urine Total 400 ml # Voids 1 4 # Bowel Movements 2 Physical Exam GENERAL: In NAD. SKIN: Warm and dry. HEAD: Normocephalic. EYES: No scleral icterus. No injection or drainage. NECK: Supple, trachea midline. No JVD or lymphadenopathy. CARDIOVASCULAR: Regular rate and rhythm without murmurs, gallops, or rubs. RESPIRATORY: Breath sounds equal bilaterally. No accessory muscle use. Distant BS. Few rhonchi. GASTROINTESTINAL: Abdomen soft, non-tender, nondistended. MUSCULOSKELETAL: No cyanosis, bilateral lymphedema. Laboratory Laboratory Tests Test 03/23/17 05:50 White Blood Count 3.9 TH/MM3 Red Blood Count 3.79 MIL/MM3 Hemoglobin 11.6 GM/DL Hematocrit 37.5 % Mean Corpuscular Volume 99.1 FL Mean Corpuscular Hemoglobin 30.6 PG Mean Corpuscular Hemoglobin Concent 30.9 % Red Cell Distribution Width 17.0 % Platelet Count 119 TH/MM3 Mean Platelet Volume 8.1 FL Hematology Comments Blood Urea Nitrogen 53 MG/DL Creatinine 3.08 MG/DL Random Glucose 86 MG/DL Calcium Level 7.5 MG/DL Sodium Level 134 MEQ/L Potassium Level 5.9 MEQ/L Chloride Level 105 MEQ/L Carbon Dioxide Level 24.9 MEQ/L Anion Gap 4 MEQ/L Estimat Glomerular Filtration Rate 25 ML/MIN Assessment and Plan Problem List: (1) CHF (congestive heart failure) ICD Codes: I50.9 - CHF (congestive heart failure) Status: Chronic (2) COPD (chronic obstructive pulmonary disease) ICD Codes: J44.9 - COPD (chronic obstructive pulmonary disease) Status: Chronic (3) DM (diabetes mellitus) ICD Codes: E11.9 - DM (diabetes mellitus) Status: Chronic (4) Hypertension ICD Codes: I10 - Hypertension Status: Chronic (5) HIV (human immunodeficiency virus infection) ICD Codes: Z21 - HIV (human immunodeficiency virus infection) Status: Chronic Assessment and Plan Some improvement, less SOB, but still very edematous. Continue therapy for CHF including diuresis and beta sofya. Continue therapy for COPD exacerbation. Overall prognosis poor due to multiple comorbidities and patient's poor attitude. Palliative care consulted. Sudeep Chavez MD Mar 23, 2017 16:46
--- NOTE | 2017-03-23 19:49 | HHI.PR ---
Subjective Remarks alert no sob at rest Objective Vital Signs Date Time Temp Pulse Resp B/P (MAP) Pulse Ox O2 Delivery O2 Flow Rate FiO2 03/23/17 19:30 95 Nasal Cannula 4.00 03/23/17 16:00 97.5 75 18 134/88 (103) 95 03/23/17 12:00 97.0 78 18 153/83 (106) 95 03/23/17 08:30 1.00 03/23/17 08:01 99 Nasal Cannula 4.00 03/23/17 04:00 96.5 69 18 127/78 (94) 99 03/23/17 01:27 Nasal Cannula 3.50 03/23/17 00:00 96.4 71 17 107/74 (85) 99 03/22/17 20:00 97.8 77 18 114/76 (89) 96 I/O 03/22/17 03/22/17 03/22/17 03/23/17 03/23/17 03/23/17 07:00 15:00 23:00 07:00 15:00 23:00 Intake Total 240 ml 920 ml 960 ml Output Total 400 ml 1325 ml Balance 240 ml 520 ml -365 ml Intake Oral 240 ml 920 ml 960 ml Output Urine Total 400 ml 1325 ml # Voids 1 4 # Bowel Movements 2 Result Diagram: 03/23/17 0550 03/23/17 0550 Objective Remarks Laboratory Tests Test 03/20/17 23:33 03/21/17 13:59 03/22/17 10:31 03/23/17 05:50 Blood Urea Nitrogen 33 MG/DL (7-18) 49 MG/DL (7-18) 53 MG/DL (7-18) Creatinine 2.57 MG/DL (0.60-1.30) 3.09 MG/DL (0.60-1.30) 3.08 MG/DL (0.60-1.30) Random Glucose 135 MG/DL (74-106) 179 MG/DL (74-106) Calcium Level 8.4 MG/DL (8.5-10.1) 8.1 MG/DL (8.5-10.1) 7.5 MG/DL (8.5-10.1) Potassium Level 5.8 MEQ/L (3.5-5.1) 6.3 MEQ/L (3.5-5.1) 5.9 MEQ/L (3.5-5.1) Carbon Dioxide Level 32.1 MEQ/L (21.0-32.0) Anion Gap 3 MEQ/L (5-15) 2 MEQ/L (5-15) 4 MEQ/L (5-15) Estimat Glomerular Filtration Rate 31 ML/MIN (>89) 25 ML/MIN (>89) 25 ML/MIN (>89) White Blood Count 3.9 TH/MM3 (4.0-11.0) 3.9 TH/MM3 (4.0-11.0) Red Blood Count 3.66 MIL/MM3 (4.50-5.90) 3.79 MIL/MM3 (4.50-5.90) Hemoglobin 11.3 GM/DL (13.0-17.0) 11.6 GM/DL (13.0-17.0) Hematocrit 37.1 % (39.0-51.0) 37.5 % (39.0-51.0) Mean Corpuscular Volume 101.2 FL (80.0-100.0) Mean Corpuscular Hemoglobin Concent 30.4 % (32.0-36.0) 30.9 % (32.0-36.0) Red Cell Distribution Width 18.1 % (11.6-17.2) Sodium Level 135 MEQ/L (136-145) 134 MEQ/L (136-145) B-Type Natriuretic Peptide 3182 PG/ML (0-100) Platelet Count 119 TH/MM3 (150-450) Assessment and Plan Assessment and Plan respiratory failue copd chf plan o2 as needed bronchodilators increase activity Jonathan Castillo MD Mar 23, 2017 19:49
[2017-03-24] VITALS (8 sets, daily range): BP systolic 139–157; BP diastolic 77–92; PULSE 65–81; RESP 16–19; TEMP 97–98; O2SAT 92–99
[2017-03-24] MEDS: RESP: ALBUTEROL 2.5 MG/IPRATROPIUM 0.5 MG NEB (SCH) INH ×4 (07:32→21:05)
[2017-03-24] MEDS: INSULIN DETEMIR 100 UNITS/ML VIAL SQ SCH ×2 (07:48→09:00)
[2017-03-24] MEDS: INSULIN ASPART SUPPLEMENTAL SCALE SQ SCH ×4 (07:55→21:00)
--- NOTE | 2017-03-24 08:51 | HHI.PR ---
Subjective Remarks Pt sitting on side of bed. mumbles when I ask him questions, quickly replies yes when I ask him if he is going to eat the cracker on his table. discussed w RN, BS was at 67 this morning. gave him orange juice and crackers. Pt has been asymptomatic all along. Labwork this AM not yet available. concerned about dose of levemir. Objective Vitals Vital Signs Date Time Temp Pulse Resp B/P (MAP) Pulse Ox O2 Delivery O2 Flow Rate FiO2 03/24/17 07:32 99 Nasal Cannula 3.00 03/24/17 04:00 97.0 74 19 142/89 (106) 96 03/24/17 00:00 97.7 69 18 148/92 (110) 97 03/23/17 20:45 Nasal Cannula 4.00 03/23/17 20:00 97.9 78 20 142/69 (93) 96 03/23/17 19:30 95 Nasal Cannula 4.00 03/23/17 16:00 97.5 75 18 134/88 (103) 95 03/23/17 12:00 97.0 78 18 153/83 (106) 95 I/O 03/23/17 03/23/17 03/23/17 03/24/17 03/24/17 03/24/17 07:00 15:00 23:00 07:00 15:00 23:00 Intake Total 1160 ml 240 ml Output Total 1725 ml 350 ml Balance -565 ml -110 ml Intake Oral 1160 ml 240 ml Output Urine Total 1725 ml 350 ml # Bowel Movements 0 Result Diagram: 03/23/17 0550 03/23/17 0550 Imaging Last Impressions Renal Ultrasound 03/22/17 0000 Signed Impressions: Service Date/Time: Wednesday, March 22, 2017 13:22 - CONCLUSION: 1. Stable sonographic appearance of the kidneys with diffuse cortical echogenicity consistent with medical renal disease and stable mild prominence of the central renal pelves. 2. Incidental note of small left pleural effusion. Robert Gutierrez MD Chest X-Ray 03/20/17 1046 Signed Impressions: Service Date/Time: Monday, March 20, 2017 11:03 - CONCLUSION: Moderate cardiac decompensation Daniel Flores MD Objective Remarks GENERAL: Morbidly obese male, sitting on side of bed, awake, has sheets covering this head and holding them. mumbling when I speak w him and prefers not to talk to me SKIN: Severe lymphedema changes bilateral lower extremities. CARDIOVASCULAR: Regular rate and rhythm without murmurs RESPIRATORY: Movement is fair. Markedly diminished breath sounds at the bases bilaterally, otherwise clear to auscultation. GASTROINTESTINAL: Abdomen obese, soft, nontender. MUSCULOSKELETAL: Bilateral lower extremity with severe lymphedema, right much worse than the left. NEUROLOGICAL: awake, only answers when he wants A/P Problem List: (1) Acute on chronic systolic (congestive) heart failure ICD Code: I50.23 - Acute on chronic systolic (congestive) heart failure (2) COPD exacerbation ICD Code: J44.1 - COPD exacerbation Status: Acute (3) Hypertension ICD Code: I10 - Hypertension Status: Chronic (4) Chronic acquired lymphedema ICD Code: I89.0 - Chronic acquired lymphedema Status: Chronic (5) DM (diabetes mellitus) ICD Code: E11.9 - DM (diabetes mellitus) Status: Chronic (6) HIV (human immunodeficiency virus infection) ICD Code: Z21 - HIV (human immunodeficiency virus infection) Status: Chronic Assessment and Plan In Brief this is a 56-year-old male with multiple, severe comorbid conditions admitted with acute on chronic systolic CHF, COPD exacerbation, and acute on chronic renal failure. The patient just returned in the [facility]. He reports recent history of AICD placement and cardiac arrest 3 weeks ago. He is being treated for CHF and COPD exacerbation. His kidney functions worsened, unclear what his baseline is. Nephrology following. Discharge pending on his renal functions and stability of his breathing status. Acute on chronic systolic CHF: History of AICD placement for severely reduced EF. Reportedly had cardiac arrest 3 weeks ago. - Apparently pt refusing some things regarding his care, initially not wanting to be on bumex however agreeable now. Nephrology has switched him to 2mg IV BID. continue - Fluid restriction - Continue metoprolol, aspirin. Apparently allergic to alicja inhibitors. - Cardiology following. 2-D echocardiogram shows global dysfunction with LVEF of 20-25%. Acute COPD exacerbation: No signs of infectious process currently. Patient attributes this to the change in weather. He just returned to the [facility] from [place]. - switched to Solu-Medrol IV daily per pulm. Appreciate pulmonology recs. Palliative care consulted. - Supplemental oxygen as needed - Bronchodilators as needed. Acute on chronic renal failure: Unsure what his new baseline is since he has been out of the area for a couple of years. - also hyperkalemic improving s/p kayexalate and bumex use. - Nephrology following. on IV bumex. Diabetes mellitus: type 2 - Lantus 60 units daily at home. ( here on levemir 60 units daily) however due to episode of hypoglycemia will decrease dose to 50units daily. - continue SSI with Accu-Cheks. Chronic pain: Patient reports exacerbation of his pain. apparently had been requesting IV pain medication. No clear/objective evidence that he requires IV pain medication at this time. He was seen by palliative care. Agree with increase in oxycodone to help with his pain. HIV: Continue antivirals GI prophylaxis: Stool softener PRN constipation. DVT PPx: Patient refused heparin for DVT prophylaxis. He was counseled on the possibility of DVT or even from PE. Discharge Planning d/c pending further clinical improvement and transition to po meds. Milagro Banegas MD Mar 24, 2017 08:51
[2017-03-24] MEDS: AZITHROMYCIN SUSP 200 MG/5 ML 15 ML BTL PO SCH (09:00)
[2017-03-24] MEDS ORDERED: INSULIN DETEMIR 100 UNITS/ML VIAL SQ SCH (09:00)
[2017-03-24] MEDS: SODIUM CHLORIDE 0.9% FLUSH 10 ML FLUSH IV FLUSH SCH ×2 (09:00→20:54)
[2017-03-24] MEDS: DOLUTEGRAVIR SODIUM 50 MG TAB PO SCH (09:08)
[2017-03-24] MEDS: ASPIRIN 325 MG TAB PO SCH (09:08)
[2017-03-24] MEDS: EMTRICITABINE/TENOFOVIR 200 MG/300 MG TAB PO SCH (09:08)
[2017-03-24] MEDS: METOPROLOL TARTRATE 50 MG TAB PO SCH ×2 (09:08→20:54)
[2017-03-24] MEDS: HEPARIN SODIUM - SQ 10,000 UNITS/ML VIAL SQ SCH ×3 (09:10→21:00)
[2017-03-24] MEDS: methylPREDNISolone SOD SUCC 40 MG/1 ML VIAL IV PUSH SCH (09:10)
[2017-03-24] MEDS: BUMETANIDE INJ 1 MG/4 ML VIAL IV PUSH SCH ×2 (09:11→18:04)
--- NOTE | 2017-03-24 12:28 | HHI.NPPN ---
Subjective History of Present Illness 56-year-old male with a past medical history of ischemic heart disease, congestive heart failure, history of HIV, hepatitis C, chronic obstructive pulmonary disease, diabetes mellitus, chronic lymphedema of the legs, and chronic kidney disease who came to the hospital with a complaint of shortness of breath. I was called to see the patient because of chronic kidney disease, elevated creatinine and high potassium level. The patient has a known history of chronic kidney disease. He has a baseline creatinine of around 2.1-2.3 according to the patient. Additional Remarks Patient is alert, no SOB, with nasal cannula, eating Breakfast, feeling better. Review of Systems General Constitutional: Fatigue Respiratory Lungs: SOB Cardiovascular Cardiac: Edema, [place] Objective Data Data Vital Signs Date Time Temp Pulse Resp B/P (MAP) Pulse Ox O2 Delivery O2 Flow Rate FiO2 03/24/17 09:28 Nasal Cannula 4.00 03/24/17 08:00 97.0 65 16 143/86 (105) 99 03/24/17 07:32 99 Nasal Cannula 3.00 03/24/17 04:00 97.0 74 19 142/89 (106) 96 03/24/17 00:00 97.7 69 18 148/92 (110) 97 03/23/17 20:45 Nasal Cannula 4.00 03/23/17 20:00 97.9 78 20 142/69 (93) 96 03/23/17 19:30 95 Nasal Cannula 4.00 03/23/17 16:00 97.5 75 18 134/88 (103) 95 -: 03/23/17 0550 03/23/17 0550 Physical Exam General Appearance: No Acute Distress, Comfortable Eyes Eye Exam: Pupils Equal Throat Throat Exam: Oral Mucosa Shirley & Moist Neck Neck Exam: Neck Supple Pulmonary Resp Exam: No Distress, Crackles, Rhonchi, Decreased Bases, Diminished Breath Sounds Cardiology CV Exam: Regular, Normal Sinus Rhythm Gastrointestinal/Abdomen GI Exam: Soft, Non-Tender, Bowel Sounds Present, Distended Extremeties Extremities Exam: Moderate Edema, Pitting Edema, Dependent Edema (Bilateral lymphedema, more in Rt. leg.) Neurologic Neuro Exam: Alert, Awake, Oriented Psychiatric Psych Exam: Appropriate Responses Assessment/Plan Assessment Summary: MARION/Acute Renal Failure, Anemia of CKD, Fluid/Volume Overload, Hypertension, CKD Stage IV Electrolyte Assessment: Hyperkalemia Problem List: (1) Stage 4 chronic kidney disease ICD Codes: N18.4 - Chronic kidney disease, stage 4 (severe) (2) Acute kidney injury ICD Codes: N17.9 - Acute kidney failure, unspecified (3) Anemia ICD Codes: D64.9 - Anemia Status: Acute (4) AIDS ICD Codes: B20 - AIDS Status: Chronic (5) Hypothyroidism ICD Codes: E03.9 - Hypothyroidism Status: Chronic (6) Hypoxia ICD Codes: R09.02 - Hypoxia Status: Acute (7) Acute on chronic systolic (congestive) heart failure ICD Codes: I50.23 - Acute on chronic systolic (congestive) heart failure (8) Shortness of breath ICD Codes: R06.02 - Shortness of breath Status: Chronic (9) History of hepatitis C ICD Codes: Z86.19 - Personal history of other infectious and parasitic diseases Status: Acute (10) COPD (chronic obstructive pulmonary disease) ICD Codes: J44.9 - COPD (chronic obstructive pulmonary disease) Status: Chronic (11) Hyperkalemia ICD Codes: E87.5 - Hyperkalemia Status: Acute Plan Patient has stage 4 chronic kidney disease, most likely due to Hypertensive renal disease or HIV disease. Now develop some MARION and Hyperkalemia. Patient has been non oliguric. Continue Bumex. Follow the urine out put and BMP. No new BMP today, diet was changed to low K. Millicent Ga MD Mar 24, 2017 12:28
[2017-03-24 13:23] LABS: BICARBONATE 33.5 MEQ/L (21.0-32.0); MAGNESIUM 2.1 MG/DL (1.5-2.5); POTASSIUM 4.4 MEQ/L (3.5-5.1)
--- NOTE | 2017-03-24 14:23 | PD.CARD.PN ---
Subjective Subjective Remarks No CP, mild SOB, not very cooperative Objective Medications Administered Medications Medications (Trade) Dose Ordered Sig/Kaela Route PRN Reason Start Time Stop Time Status Last Admin Dose Admin Aspirin (Aspirin) 325 mg DAILY PO 03/21/17 09:00 03/24/17 09:08 Azithromycin (Zithromax 200 Mg/5 ml Liq) 200 mg DAILY PO 03/21/17 09:00 03/24/17 09:00 Emtricitabine/ Tenofovir (Truvada 200-300 Mg) 1 tab DAILY PO 03/21/17 09:00 03/24/17 09:08 Sodium Chloride (NS Flush) 2 ml BID IV FLUSH 03/20/17 21:00 03/24/17 09:00 Sodium Chloride (NS Flush) 2 ml UNSCH PRN IV FLUSH FLUSH AFTER USING IV ACCESS 03/20/17 14:00 03/23/17 17:41 Heparin Sodium (Porcine) (Heparin Inj) 5,000 units Q12HR SQ 03/20/17 21:00 03/24/17 09:10 Insulin Aspart (NovoLOG SUPPLEMENTAL SCALE) 1 ACHS SLIDING SCALE SQ 03/20/17 17:00 03/22/17 18:12 Metoprolol Tartrate (Lopressor) 50 mg BID PO 03/20/17 21:00 03/24/17 09:08 Oxycodone HCl (Roxicodone) 10 mg Q6H PRN PO pain 1-5 03/20/17 22:00 03/21/17 13:46 Oxycodone HCl (Roxicodone) 15 mg Q6H PRN PO pain 6-10 03/21/17 15:30 03/24/17 09:09 Bumetanide (Bumex Inj) 2 mg BID@09,18 IV PUSH 03/22/17 18:00 03/24/17 09:11 Albuterol/ Ipratropium (Duoneb Neb) 1 ampule QID NEB INH 03/22/17 16:00 03/24/17 11:26 Methylprednisolone Sodium Succinate (SoluMEDROL INJ) 40 mg DAILY IV PUSH 03/23/17 09:00 03/24/17 09:10 Vital Signs / I&O Vital Signs Date Time Temp Pulse Resp B/P (MAP) Pulse Ox O2 Delivery O2 Flow Rate FiO2 03/24/17 12:00 97.6 70 16 139/88 (105) 97 03/24/17 09:28 Nasal Cannula 4.00 03/24/17 08:00 97.0 65 16 143/86 (105) 99 03/24/17 07:32 99 Nasal Cannula 3.00 03/24/17 04:00 97.0 74 19 142/89 (106) 96 03/24/17 00:00 97.7 69 18 148/92 (110) 97 03/23/17 20:45 Nasal Cannula 4.00 03/23/17 20:00 97.9 78 20 142/69 (93) 96 03/23/17 19:30 95 Nasal Cannula 4.00 03/23/17 16:00 97.5 75 18 134/88 (103) 95 I/O 03/23/17 03/23/17 03/23/17 03/24/17 03/24/17 03/24/17 07:00 15:00 23:00 07:00 15:00 23:00 Intake Total 1160 ml 240 ml Output Total 1725 ml 350 ml Balance -565 ml -110 ml Intake Oral 1160 ml 240 ml Output Urine Total 1725 ml 350 ml # Bowel Movements 0 Physical Exam GENERAL: In NAD. SKIN: Warm and dry. HEAD: Normocephalic. EYES: No scleral icterus. No injection or drainage. NECK: Supple, trachea midline. No JVD or lymphadenopathy. CARDIOVASCULAR: Regular rate and rhythm without murmurs, gallops, or rubs. RESPIRATORY: Breath sounds equal bilaterally. No accessory muscle use. Distant BS. Few rhonchi. GASTROINTESTINAL: Abdomen soft, non-tender, nondistended. MUSCULOSKELETAL: No cyanosis, bilateral extensive lymphedema/elephantiasis Laboratory Laboratory Tests Test 03/24/17 11:53 Blood Urea Nitrogen 57 MG/DL Creatinine 2.92 MG/DL Random Glucose 92 MG/DL Calcium Level 7.7 MG/DL Phosphorus Level 3.6 MG/DL Magnesium Level 2.1 MG/DL Sodium Level 140 MEQ/L Potassium Level 4.4 MEQ/L Chloride Level 103 MEQ/L Carbon Dioxide Level 33.5 MEQ/L Anion Gap 4 MEQ/L Estimat Glomerular Filtration Rate 27 ML/MIN Assessment and Plan Problem List: (1) CHF (congestive heart failure) ICD Codes: I50.9 - CHF (congestive heart failure) Status: Chronic (2) COPD (chronic obstructive pulmonary disease) ICD Codes: J44.9 - COPD (chronic obstructive pulmonary disease) Status: Chronic (3) DM (diabetes mellitus) ICD Codes: E11.9 - DM (diabetes mellitus) Status: Chronic (4) Hypertension ICD Codes: I10 - Hypertension Status: Chronic (5) HIV (human immunodeficiency virus infection) ICD Codes: Z21 - HIV (human immunodeficiency virus infection) Status: Chronic Assessment and Plan Mild SOB, still very edematous. Continue therapy for CHF including diuresis and beta sofya, did not tolerate JANAE/ARB, has significant renal insufficiency. Continue therapy for COPD exacerbation. Overall prognosis poor due to multiple comorbidities and patient's poor attitude. Palliative care consulted, recommend to consider comfort care and hospice. Sudeep Chavez MD Mar 24, 2017 14:23
--- NOTE | 2017-03-24 16:12 | HHI.PR ---
Subjective Remarks alert no sob at rest Objective Vital Signs Date Time Temp Pulse Resp B/P (MAP) Pulse Ox O2 Delivery O2 Flow Rate FiO2 03/24/17 12:00 97.6 70 16 139/88 (105) 97 03/24/17 09:28 Nasal Cannula 4.00 03/24/17 08:00 97.0 65 16 143/86 (105) 99 03/24/17 07:32 99 Nasal Cannula 3.00 03/24/17 04:00 97.0 74 19 142/89 (106) 96 03/24/17 00:00 97.7 69 18 148/92 (110) 97 03/23/17 20:45 Nasal Cannula 4.00 03/23/17 20:00 97.9 78 20 142/69 (93) 96 03/23/17 19:30 95 Nasal Cannula 4.00 I/O 03/23/17 03/23/17 03/23/17 03/24/17 03/24/17 03/24/17 07:00 15:00 23:00 07:00 15:00 23:00 Intake Total 1160 ml 240 ml Output Total 1725 ml 350 ml 900 ml Balance -565 ml -110 ml -900 ml Intake Oral 1160 ml 240 ml Output Urine Total 1725 ml 350 ml 900 ml # Bowel Movements 0 Result Diagram: 03/23/17 0550 03/24/17 1153 Objective Remarks Laboratory Tests Test 03/20/17 23:33 03/21/17 13:59 03/22/17 10:31 03/23/17 05:50 Blood Urea Nitrogen 33 MG/DL (7-18) 49 MG/DL (7-18) 53 MG/DL (7-18) Creatinine 2.57 MG/DL (0.60-1.30) 3.09 MG/DL (0.60-1.30) 3.08 MG/DL (0.60-1.30) Random Glucose 135 MG/DL (74-106) 179 MG/DL (74-106) Calcium Level 8.4 MG/DL (8.5-10.1) 8.1 MG/DL (8.5-10.1) 7.5 MG/DL (8.5-10.1) Potassium Level 5.8 MEQ/L (3.5-5.1) 6.3 MEQ/L (3.5-5.1) 5.9 MEQ/L (3.5-5.1) Carbon Dioxide Level 32.1 MEQ/L (21.0-32.0) Anion Gap 3 MEQ/L (5-15) 2 MEQ/L (5-15) 4 MEQ/L (5-15) Estimat Glomerular Filtration Rate 31 ML/MIN (>89) 25 ML/MIN (>89) 25 ML/MIN (>89) White Blood Count 3.9 TH/MM3 (4.0-11.0) 3.9 TH/MM3 (4.0-11.0) Red Blood Count 3.66 MIL/MM3 (4.50-5.90) 3.79 MIL/MM3 (4.50-5.90) Hemoglobin 11.3 GM/DL (13.0-17.0) 11.6 GM/DL (13.0-17.0) Hematocrit 37.1 % (39.0-51.0) 37.5 % (39.0-51.0) Mean Corpuscular Volume 101.2 FL (80.0-100.0) Mean Corpuscular Hemoglobin Concent 30.4 % (32.0-36.0) 30.9 % (32.0-36.0) Red Cell Distribution Width 18.1 % (11.6-17.2) Sodium Level 135 MEQ/L (136-145) 134 MEQ/L (136-145) B-Type Natriuretic Peptide 3182 PG/ML (0-100) Platelet Count 119 TH/MM3 (150-450) Assessment and Plan Assessment and Plan respiratory failue copd chf plan o2 as needed bronchodilators increase activity Jonathan Castillo MD Mar 24, 2017 16:12
[2017-03-25] VITALS (8 sets, daily range): BP systolic 131–161; BP diastolic 69–93; PULSE 71–86; RESP 18–21; TEMP 97–98; O2SAT 91–98
[2017-03-25] MEDS: INSULIN ASPART SUPPLEMENTAL SCALE SQ SCH ×4 (08:00→21:23)
--- NOTE | 2017-03-25 08:54 | HHI.PR ---
Subjective Remarks Pt complains of pain, denies any SOB or chest pains. no nausea or vomiting. I have discussed cardiology recs w patient. initially states that he is not hospice material but later tells me that he would like to speak w them and be discharged to [facility] where his resides and have hospice services there if possible. Objective Vitals Vital Signs Date Time Temp Pulse Resp B/P (MAP) Pulse Ox O2 Delivery O2 Flow Rate FiO2 03/25/17 08:06 Nasal Cannula 4.00 03/25/17 04:00 97.0 71 21 151/86 (107) 98 03/25/17 00:00 98.0 78 20 148/87 (107) 93 03/24/17 22:33 18 03/24/17 21:09 92 Nasal Cannula 3.00 03/24/17 21:00 Nasal Cannula 4.00 03/24/17 20:00 97.4 81 19 157/89 (111) 92 03/24/17 18:00 98.0 74 18 140/77 (98) 95 03/24/17 12:00 97.6 70 16 139/88 (105) 97 03/24/17 09:28 Nasal Cannula 4.00 I/O 03/24/17 03/24/17 03/24/17 03/25/17 03/25/17 03/25/17 07:00 15:00 23:00 07:00 15:00 23:00 Intake Total 240 ml 1080 ml Output Total 350 ml 3150 ml 2100 ml Balance -110 ml -2070 ml -2100 ml Intake Oral 240 ml 1080 ml Output Urine Total 350 ml 3150 ml 2100 ml Result Diagram: 03/23/17 0550 03/24/17 1153 Imaging Last Impressions Renal Ultrasound 03/22/17 0000 Signed Impressions: Service Date/Time: Wednesday, March 22, 2017 13:22 - CONCLUSION: 1. Stable sonographic appearance of the kidneys with diffuse cortical echogenicity consistent with medical renal disease and stable mild prominence of the central renal pelves. 2. Incidental note of small left pleural effusion. Robert Gutierrez MD Chest X-Ray 03/20/17 1046 Signed Impressions: Service Date/Time: Monday, March 20, 2017 11:03 - CONCLUSION: Moderate cardiac decompensation aDniel Flores MD Objective Remarks GENERAL: Morbidly obese male, sitting on recliner, awake, has sheets covering this head and holding them. mumbling when I speak w him and finally speaks w me when I mention hospice. SKIN: Severe lymphedema changes bilateral lower extremities. CARDIOVASCULAR: Regular rate and rhythm without murmurs RESPIRATORY: Movement is fair. Markedly diminished breath sounds at the bases bilaterally, otherwise clear to auscultation. GASTROINTESTINAL: Abdomen obese, soft, nontender. MUSCULOSKELETAL: Bilateral lower extremity with severe lymphedema, right much worse than the left. NEUROLOGICAL: awake, only answers when he wants A/P Problem List: (1) Acute on chronic systolic (congestive) heart failure ICD Code: I50.23 - Acute on chronic systolic (congestive) heart failure (2) COPD exacerbation ICD Code: J44.1 - COPD exacerbation Status: Acute (3) Hypertension ICD Code: I10 - Hypertension Status: Chronic (4) Chronic acquired lymphedema ICD Code: I89.0 - Chronic acquired lymphedema Status: Chronic (5) DM (diabetes mellitus) ICD Code: E11.9 - DM (diabetes mellitus) Status: Chronic (6) HIV (human immunodeficiency virus infection) ICD Code: Z21 - HIV (human immunodeficiency virus infection) Status: Chronic Assessment and Plan In Brief this is a 56-year-old male with multiple, severe comorbid conditions admitted with acute on chronic systolic CHF, COPD exacerbation, and acute on chronic renal failure. The patient just returned in the [facility] area. He reports recent history of AICD placement and cardiac arrest 3 weeks ago. He is being treated for CHF and COPD exacerbation. His kidney functions worsened, unclear what his baseline is. Nephrology following. Discharge pending on his renal functions and stability of his breathing status. Acute on chronic systolic CHF: History of AICD placement for severely reduced EF. Reportedly had cardiac arrest 3 weeks ago. - Apparently pt refusing some things regarding his care, initially not wanting to be on bumex 2mg IV BID which he is now agreeable to take. continue - Fluid restriction - Continue metoprolol, aspirin. Apparently allergic to alicja inhibitors. - Cardiology following. 2-D echocardiogram shows global dysfunction with LVEF of 20-25%. Per Cardiology, prognosis is poor and they recommend comfort care/ hospice. I did discuss this w patient and he would like to be discharged to [facility] where his resides and have hospice services there if possible. I have placed a hospice and case management consult for assistance w d/c planning. Acute COPD exacerbation: No signs of infectious process currently. Patient attributes this to the change in weather. He just returned to the [facility] from [place]. - on Solu-Medrol IV daily per pulm. I will switch him to po prednisone 40mg daily. Appreciate pulmonology recs. Palliative care consulted. - Supplemental oxygen as needed - Bronchodilators as needed. Acute on chronic renal failure: Unsure what his new baseline is since he has been out of the area for a couple of years. - also hyperkalemic improving s/p kayexalate and bumex use. - Nephrology following. on IV bumex. Diabetes mellitus: type 2 - Lantus 60 units daily at home. ( here on levemir 60 units daily) however due to episode of hypoglycemia dose was changed to 50units daily. adjust as needed - continue SSI with Accu-Cheks. Chronic pain: Patient reports exacerbation of his pain. apparently had been requesting IV pain medication. No clear/objective evidence that he requires IV pain medication at this time. He was seen by palliative care. Agree with increase in oxycodone to help with his pain. HIV: Continue antivirals GI prophylaxis: Stool softener PRN constipation. DVT PPx: Patient refused heparin for DVT prophylaxis. He was counseled on the possibility of DVT or even from PE. Discharge Planning hospice consult in place. pt wishes to go to [facility] where his resides and have hospice services provided there. CM has been notified. Milagro Banegas MD Mar 25, 2017 08:54
[2017-03-25] MEDS: HEPARIN SODIUM - SQ 10,000 UNITS/ML VIAL SQ SCH ×2 (09:00→21:22)
[2017-03-25] MEDS: AZITHROMYCIN SUSP 200 MG/5 ML 15 ML BTL PO SCH (09:09)
[2017-03-25] MEDS: INSULIN DETEMIR 100 UNITS/ML VIAL SQ SCH (09:09)
[2017-03-25] MEDS: EMTRICITABINE/TENOFOVIR 200 MG/300 MG TAB PO SCH (09:10)
[2017-03-25] MEDS: predniSONE 20 MG TAB PO SCH (09:10)
[2017-03-25] MEDS: ASPIRIN 325 MG TAB PO SCH (09:10)
[2017-03-25] MEDS: METOPROLOL TARTRATE 50 MG TAB PO SCH ×2 (09:10→21:22)
[2017-03-25] MEDS: DOLUTEGRAVIR SODIUM 50 MG TAB PO SCH (09:10)
[2017-03-25] MEDS: BUMETANIDE INJ 1 MG/4 ML VIAL IV PUSH SCH ×2 (09:10→17:53)
[2017-03-25] MEDS: SODIUM CHLORIDE 0.9% FLUSH 10 ML FLUSH IV FLUSH SCH ×2 (09:10→21:23)
[2017-03-25] MEDS: RESP: ALBUTEROL 2.5 MG/IPRATROPIUM 0.5 MG NEB (SCH) INH ×4 (09:24→20:42)
--- NOTE | 2017-03-25 11:27 | HHI.NPPN ---
Subjective History of Present Illness 56-year-old male with a past medical history of ischemic heart disease, congestive heart failure, history of HIV, hepatitis C, chronic obstructive pulmonary disease, diabetes mellitus, chronic lymphedema of the legs, and chronic kidney disease who came to the hospital with a complaint of shortness of breath. I was called to see the patient because of chronic kidney disease, elevated creatinine and high potassium level. The patient has a known history of chronic kidney disease. He has a baseline creatinine of around 2.1-2.3 according to the patient. Additional Remarks Patient is alert, no SOB, with nasal cannula, sitting on chair, not in distress. Review of Systems General Constitutional: Fatigue Respiratory Lungs: SOB Cardiovascular Cardiac: Edema, CALHOUN Objective Data Data Vital Signs Date Time Temp Pulse Resp B/P (MAP) Pulse Ox O2 Delivery O2 Flow Rate FiO2 03/25/17 08:06 Nasal Cannula 4.00 03/25/17 08:00 97.0 79 21 151/89 (109) 96 03/25/17 04:00 97.0 71 21 151/86 (107) 98 03/25/17 00:00 98.0 78 20 148/87 (107) 93 03/24/17 22:33 18 03/24/17 21:09 92 Nasal Cannula 3.00 03/24/17 21:00 Nasal Cannula 4.00 03/24/17 20:00 97.4 81 19 157/89 (111) 92 03/24/17 18:00 98.0 74 18 140/77 (98) 95 03/24/17 12:00 97.6 70 16 139/88 (105) 97 -: 03/23/17 0550 03/24/17 1153 Physical Exam General Appearance: No Acute Distress, Comfortable Eyes Eye Exam: Pupils Equal Throat Throat Exam: Oral Mucosa Ang[place] & Moist Neck Neck Exam: Neck Supple Pulmonary Resp Exam: No Distress, Crackles, Rhonchi, Decreased Bases, Diminished Breath Sounds Cardiology CV Exam: Regular, Normal Sinus Rhythm Gastrointestinal/Abdomen GI Exam: Soft, Non-Tender, Bowel Sounds Present, Distended Extremeties Extremities Exam: Moderate Edema, Pitting Edema, Dependent Edema (Bilateral lymphedema, more in Rt. leg.) Neurologic Neuro Exam: Alert, Awake, Oriented Psychiatric Psych Exam: Appropriate Responses Assessment/Plan Assessment Summary: MARION/Acute Renal Failure, Anemia of CKD, Fluid/Volume Overload, Hypertension, CKD Stage IV Electrolyte Assessment: Hyperkalemia Problem List: (1) Stage 4 chronic kidney disease ICD Codes: N18.4 - Chronic kidney disease, stage 4 (severe) (2) Acute kidney injury ICD Codes: N17.9 - Acute kidney failure, unspecified (3) Anemia ICD Codes: D64.9 - Anemia Status: Acute (4) AIDS ICD Codes: B20 - AIDS Status: Chronic (5) Hypothyroidism ICD Codes: E03.9 - Hypothyroidism Status: Chronic (6) Hypoxia ICD Codes: R09.02 - Hypoxia Status: Acute (7) Acute on chronic systolic (congestive) heart failure ICD Codes: I50.23 - Acute on chronic systolic (congestive) heart failure (8) Shortness of breath ICD Codes: R06.02 - Shortness of breath Status: Chronic (9) History of hepatitis C ICD Codes: Z86.19 - Personal history of other infectious and parasitic diseases Status: Acute (10) COPD (chronic obstructive pulmonary disease) ICD Codes: J44.9 - COPD (chronic obstructive pulmonary disease) Status: Chronic (11) Hyperkalemia ICD Codes: E87.5 - Hyperkalemia Status: Acute Plan Patient has stage 4 chronic kidney disease, most likely due to Hypertensive renal disease or HIV disease. Now develop some MARION and Hyperkalemia. Patient has been non oliguric. Continue Bumex. Follow the urine out put and BMP. No new BMP today, Creatinine was 2.9 yesterday, K was normal. Follow BMP in AM, Continue Bumex. Millicent Ga MD Mar 25, 2017 11:27
--- NOTE | 2017-03-25 14:09 | PD.CARD.PN ---
Subjective Subjective Remarks No CP, mild SOB, quite talkative today Objective Medications Administered Medications Medications (Trade) Dose Ordered Sig/Kaela Route PRN Reason Start Time Stop Time Status Last Admin Dose Admin Aspirin (Aspirin) 325 mg DAILY PO 03/21/17 09:00 03/25/17 09:10 Azithromycin (Zithromax 200 Mg/5 ml Liq) 200 mg DAILY PO 03/21/17 09:00 03/25/17 09:09 Emtricitabine/ Tenofovir (Truvada 200-300 Mg) 1 tab DAILY PO 03/21/17 09:00 03/25/17 09:10 Sodium Chloride (NS Flush) 2 ml BID IV FLUSH 03/20/17 21:00 03/25/17 09:10 Sodium Chloride (NS Flush) 2 ml UNSCH PRN IV FLUSH FLUSH AFTER USING IV ACCESS 03/20/17 14:00 03/23/17 17:41 Heparin Sodium (Porcine) (Heparin Inj) 5,000 units Q12HR SQ 03/20/17 21:00 03/24/17 09:10 Insulin Aspart (NovoLOG SUPPLEMENTAL SCALE) 1 ACHS SLIDING SCALE SQ 03/20/17 17:00 03/25/17 13:52 Metoprolol Tartrate (Lopressor) 50 mg BID PO 03/20/17 21:00 03/25/17 09:10 Oxycodone HCl (Roxicodone) 10 mg Q6H PRN PO pain 1-5 03/20/17 22:00 03/21/17 13:46 Oxycodone HCl (Roxicodone) 15 mg Q6H PRN PO pain 6-10 03/21/17 15:30 03/25/17 05:10 Bumetanide (Bumex Inj) 2 mg BID@,18 IV PUSH 03/22/17 18:00 03/25/17 09:10 Albuterol/ Ipratropium (Duoneb Neb) 1 ampule QID NEB INH 03/22/17 16:00 03/25/17 13:51 Insulin Detemir (Levemir Inj) 50 units DAILY SQ 03/24/17 09:00 03/25/17 09:09 Prednisone (Deltasone) 40 mg DAILY PO 03/25/17 09:00 03/25/17 09:10 Vital Signs / I&O Vital Signs Date Time Temp Pulse Resp B/P (MAP) Pulse Ox O2 Delivery O2 Flow Rate FiO2 03/25/17 12:00 98.0 73 20 145/93 (110) 94 03/25/17 08:06 Nasal Cannula 4.00 03/25/17 08:00 97.0 79 21 151/89 (109) 96 03/25/17 04:00 97.0 71 21 151/86 (107) 98 03/25/17 00:00 98.0 78 20 148/87 (107) 93 03/24/17 22:33 18 03/24/17 21:09 92 Nasal Cannula 3.00 03/24/17 21:00 Nasal Cannula 4.00 03/24/17 20:00 97.4 81 19 157/89 (111) 92 03/24/17 18:00 98.0 74 18 140/77 (98) 95 I/O 03/24/17 03/24/17 03/24/17 03/25/17 03/25/17 03/25/17 07:00 15:00 23:00 07:00 15:00 23:00 Intake Total 240 ml 1080 ml Output Total 350 ml 3150 ml 2100 ml Balance -110 ml -2070 ml -2100 ml Intake Oral 240 ml 1080 ml Output Urine Total 350 ml 3150 ml 2100 ml Physical Exam GENERAL: In NAD. SKIN: Warm and dry. HEAD: Normocephalic. EYES: No scleral icterus. No injection or drainage. NECK: Supple, trachea midline. No JVD or lymphadenopathy. CARDIOVASCULAR: Regular rate and rhythm without murmurs, gallops, or rubs. RESPIRATORY: Breath sounds equal bilaterally. No accessory muscle use. Distant BS. Few rhonchi. GASTROINTESTINAL: Abdomen soft, non-tender, nondistended. MUSCULOSKELETAL: No cyanosis, bilateral extensive lymphedema/elephantiasis Assessment and Plan Problem List: (1) CHF (congestive heart failure) ICD Codes: I50.9 - CHF (congestive heart failure) Status: Chronic (2) COPD (chronic obstructive pulmonary disease) ICD Codes: J44.9 - COPD (chronic obstructive pulmonary disease) Status: Chronic (3) DM (diabetes mellitus) ICD Codes: E11.9 - DM (diabetes mellitus) Status: Chronic (4) Hypertension ICD Codes: I10 - Hypertension Status: Chronic (5) HIV (human immunodeficiency virus infection) ICD Codes: Z21 - HIV (human immunodeficiency virus infection) Status: Chronic Assessment and Plan No change in patient's condition. Still c/o mild SOB, still very edematous. Continue therapy for CHF including diuresis and beta sofya, did not tolerate JANAE/ARB, has significant renal insufficiency. Continue therapy for COPD exacerbation. Overall prognosis poor. Palliative care consulted, recommend to consider comfort care and hospice. Sudeep Chavez MD Mar 25, 2017 14:09
[2017-03-26] VITALS (7 sets, daily range): BP systolic 135–155; BP diastolic 79–94; PULSE 69–98; RESP 17–20; TEMP 96.3–98.2; O2SAT 94–99
[2017-03-26 07:17] LABS: BICARBONATE 34.6 MEQ/L (21.0-32.0); POTASSIUM 3.6 MEQ/L (3.5-5.1)
[2017-03-26] MEDS: RESP: ALBUTEROL 2.5 MG/IPRATROPIUM 0.5 MG NEB (SCH) INH ×2 (07:33→11:59)
--- NOTE | 2017-03-26 09:29 | HHI.PR ---
Subjective Remarks Pt very talkative today. on phone w brother who has many questions. Pt refuses hospice and both him and brother states that pt will come back to the hospital over and over to get treatment. Brother states that he doesn't understand why "everyone" talks about a cardiac management when nothing cardiac has been done. I explained to him that we are doing everything we can to treat him medically and currently pt is on bumex which seems to be helping him more than lasix. I also went over the importance of being compliant and adhering to our recommendations as an outpatient and the importance of following up closely w his Doctors in the outpatient setting. I did try my best to explain the complexity of pt's case and I did go over cardiology's recs. Pt's brother tells me that he would like his brother to be educated on what he can and cannot eat and wants his brother to know the specifics. He would like everything to be written down for him. Pt's brother feels that his brother shouldn't be on hospice and that he should continue to come back to the hospital. Objective Vitals Vital Signs Date Time Temp Pulse Resp B/P (MAP) Pulse Ox O2 Delivery O2 Flow Rate FiO2 03/26/17 08:01 98.2 71 18 145/86 (105) 99 03/26/17 07:34 Nasal Cannula 3.00 03/26/17 04:00 97.2 69 18 140/79 (99) 97 03/26/17 00:00 96.3 73 17 155/86 (109) 97 03/25/17 21:25 Nasal Cannula 4.00 03/25/17 20:42 91 Nasal Cannula 3.00 03/25/17 20:00 97.2 86 18 131/69 (89) 95 03/25/17 16:00 97.9 84 20 161/89 (113) 95 03/25/17 12:00 98.0 73 20 145/93 (110) 94 03/25/17 09:24 93 Nasal Cannula 3.00 I/O 03/25/17 03/25/17 03/25/17 03/26/17 03/26/17 03/26/17 07:00 15:00 23:00 07:00 15:00 23:00 Intake Total 250 ml Output Total 2100 ml 300 ml Balance -2100 ml -300 ml 250 ml Intake Oral 250 ml Output Urine Total 2100 ml 300 ml # Voids 1 Result Diagram: 03/23/17 0550 03/26/17 0608 Imaging Last Impressions Renal Ultrasound 03/22/17 0000 Signed Impressions: Service Date/Time: Wednesday, March 22, 2017 13:22 - CONCLUSION: 1. Stable sonographic appearance of the kidneys with diffuse cortical echogenicity consistent with medical renal disease and stable mild prominence of the central renal pelves. 2. Incidental note of small left pleural effusion. Robert Gutierrez MD Chest X-Ray 03/20/17 1046 Signed Impressions: Service Date/Time: Monday, March 20, 2017 11:03 - CONCLUSION: Moderate cardiac decompensation Daniel Flores MD Objective Remarks GENERAL: Morbidly obese male, sitting on recliner, awake, holding cell phone, not complaining of pain, has sheets covering this head and holding them. SKIN: Severe lymphedema changes bilateral lower extremities. CARDIOVASCULAR: Regular rate and rhythm without murmurs RESPIRATORY: Movement is fair. Markedly diminished breath sounds at the bases bilaterally, otherwise clear to auscultation. upper noise noted. GASTROINTESTINAL: Abdomen obese, soft, nontender. MUSCULOSKELETAL: Bilateral lower extremity with severe lymphedema, right much worse than the left. NEUROLOGICAL: awake, answering questions today A/P Problem List: (1) Acute on chronic systolic (congestive) heart failure ICD Code: I50.23 - Acute on chronic systolic (congestive) heart failure (2) COPD exacerbation ICD Code: J44.1 - COPD exacerbation Status: Acute (3) Hypertension ICD Code: I10 - Hypertension Status: Chronic (4) Chronic acquired lymphedema ICD Code: I89.0 - Chronic acquired lymphedema Status: Chronic (5) DM (diabetes mellitus) ICD Code: E11.9 - DM (diabetes mellitus) Status: Chronic (6) HIV (human immunodeficiency virus infection) ICD Code: Z21 - HIV (human immunodeficiency virus infection) Status: Chronic Assessment and Plan In Brief this is a 56-year-old male with multiple, severe comorbid conditions admitted with acute on chronic systolic CHF, COPD exacerbation, and acute on chronic renal failure. The patient just returned in the [facility]. He reports recent history of AICD placement and cardiac arrest 3 weeks ago. He is being treated for CHF and COPD exacerbation. His kidney functions worsened but now slowly improving, unclear what his baseline is. Nephrology following. Discharge pending on his renal functions and stability of his breathing status. Acute on chronic systolic CHF: History of AICD placement for severely reduced EF. Reportedly had cardiac arrest 3 weeks ago. - Apparently pt refusing some things regarding his care, initially not wanting to be on bumex 2mg IV BID which he is now agreeable to take. continue - Fluid restriction 1500ml/day - Continue metoprolol, aspirin. Apparently allergic to alicja inhibitors. - Cardiology following. 2-D echocardiogram shows global dysfunction with LVEF of 20-25%. Per Cardiology, prognosis is poor and they recommend comfort care/ hospice. Pt and brother are refusing hospice and feel that pt should come to the hospital to get care. I will consult RD to assist w educating pt on a CHF/ Renal diet. Hopefully pt will adhere to these recommendations. I also educated the patient on the importance of following up w his physicians in the outpatient setting. Pt wishes to be discharged to a rehab in [facility] when ready Acute COPD exacerbation: No signs of infectious process currently. Patient attributes this to the change in weather. [facility] [place]. - s/p Solu-Medrol IV now on po prednisone 40mg daily. Appreciate pulmonology recs. Palliative care following. - Supplemental oxygen as needed - Bronchodilators as needed. Acute on chronic renal failure: Unsure what his new baseline is since he has been out of the area for a couple of years. - also hyperkalemic improving s/p kayexalate and bumex use. - Nephrology following. on IV bumex. - Creatinine slowly improving down to 2.56 today Diabetes mellitus: type 2 - Lantus 60 units daily at home. ( here on levemir 60 units daily) however due to episode of hypoglycemia dose was changed to 50units daily. adjust as needed - continue SSI with Accu-Cheks. Chronic pain: Patient reports exacerbation of his pain. apparently had been requesting IV pain medication. No clear/objective evidence that he requires IV pain medication at this time. He was seen by palliative care. Agree with increase in oxycodone to help with his pain. HIV: Continue antivirals GI prophylaxis: Stool softener PRN constipation. DVT PPx: Patient refused heparin for DVT prophylaxis. He was counseled on the possibility of DVT or even from PE. Discharge Planning Pt refused hospice. At this time, pt still on IV bumex. He will need to be transitioned to oral bumex and then can be discharged to rehab. CM assisting w d/c planning. Milagro Banegas MD Mar 26, 2017 09:29
[2017-03-26] MEDS: INSULIN DETEMIR 100 UNITS/ML VIAL SQ SCH (09:44)
[2017-03-26] MEDS: HEPARIN SODIUM - SQ 10,000 UNITS/ML VIAL SQ SCH ×2 (09:46→20:32)
[2017-03-26] MEDS: BUMETANIDE INJ 1 MG/4 ML VIAL IV PUSH SCH ×2 (09:48→18:46)
[2017-03-26] MEDS: ASPIRIN 325 MG TAB PO SCH (09:49)
[2017-03-26] MEDS: predniSONE 20 MG TAB PO SCH (09:49)
[2017-03-26] MEDS: SODIUM CHLORIDE 0.9% FLUSH 10 ML FLUSH IV FLUSH SCH ×2 (09:49→20:32)
[2017-03-26] MEDS: EMTRICITABINE/TENOFOVIR 200 MG/300 MG TAB PO SCH (09:50)
[2017-03-26] MEDS: DOLUTEGRAVIR SODIUM 50 MG TAB PO SCH (09:50)
[2017-03-26] MEDS: METOPROLOL TARTRATE 50 MG TAB PO SCH ×2 (09:50→20:32)
[2017-03-26] MEDS: AZITHROMYCIN SUSP 200 MG/5 ML 15 ML BTL PO SCH (09:51)
[2017-03-26] MEDS: INSULIN ASPART SUPPLEMENTAL SCALE SQ SCH ×4 (10:40→20:31)
--- NOTE | 2017-03-26 15:34 | HHI.NPPN ---
Subjective History of Present Illness 56-year-old male with a past medical history of ischemic heart disease, congestive heart failure, history of HIV, hepatitis C, chronic obstructive pulmonary disease, diabetes mellitus, chronic lymphedema of the legs, and chronic kidney disease who came to the hospital with a complaint of shortness of breath. I was called to see the patient because of chronic kidney disease, elevated creatinine and high potassium level. The patient has a known history of chronic kidney disease. He has a baseline creatinine of around 2.1-2.3 according to the patient. Additional Remarks Patient is alert, no SOB, with nasal cannula, sitting on chair, feeling better. Review of Systems General Constitutional: Fatigue Respiratory Lungs: SOB Cardiovascular Cardiac: Edema, CALHOUN Objective Data Data 03/26/17 03/27/17 19:00 07:00 Intake Total 490 ml Balance 490 ml Intake Oral 490 ml Vital Signs Date Time Temp Pulse Resp B/P (MAP) Pulse Ox O2 Delivery O2 Flow Rate FiO2 03/26/17 12:17 Nasal Cannula 4.00 03/26/17 12:00 96.7 76 20 152/94 (113) 97 03/26/17 08:01 98.2 71 18 145/86 (105) 99 03/26/17 07:34 Nasal Cannula 3.00 03/26/17 04:00 97.2 69 18 140/79 (99) 97 03/26/17 00:00 96.3 73 17 155/86 (109) 97 03/25/17 21:25 Nasal Cannula 4.00 03/25/17 20:42 91 Nasal Cannula 3.00 03/25/17 20:00 97.2 86 18 131/69 (89) 95 03/25/17 16:00 97.9 84 20 161/89 (113) 95 -: 03/23/17 0550 03/26/17 0608 Physical Exam General Appearance: No Acute Distress, Comfortable Eyes Eye Exam: Pupils Equal Throat Throat Exam: Oral Mucosa [place] & Moist Neck Neck Exam: Neck Supple Pulmonary Resp Exam: No Distress, Crackles, Rhonchi, Decreased Bases, Diminished Breath Sounds Cardiology CV Exam: Regular, Normal Sinus Rhythm Gastrointestinal/Abdomen GI Exam: Soft, Non-Tender, Bowel Sounds Present, Distended Extremeties Extremities Exam: Moderate Edema, Pitting Edema, Dependent Edema (Bilateral lymphedema, more in Rt. leg.) Neurologic Neuro Exam: Alert, Awake, Oriented Psychiatric Psych Exam: Appropriate Responses Assessment/Plan Assessment Summary: MARION/Acute Renal Failure, Anemia of CKD, Fluid/Volume Overload, Hypertension, CKD Stage IV Electrolyte Assessment: Hyperkalemia Problem List: (1) Stage 4 chronic kidney disease ICD Codes: N18.4 - Chronic kidney disease, stage 4 (severe) (2) Acute kidney injury ICD Codes: N17.9 - Acute kidney failure, unspecified (3) Anemia ICD Codes: D64.9 - Anemia Status: Acute (4) AIDS ICD Codes: B20 - AIDS Status: Chronic (5) Hypothyroidism ICD Codes: E03.9 - Hypothyroidism Status: Chronic (6) Hypoxia ICD Codes: R09.02 - Hypoxia Status: Acute (7) Acute on chronic systolic (congestive) heart failure ICD Codes: I50.23 - Acute on chronic systolic (congestive) heart failure (8) Shortness of breath ICD Codes: R06.02 - Shortness of breath Status: Chronic (9) History of hepatitis C ICD Codes: Z86.19 - Personal history of other infectious and parasitic diseases Status: Acute (10) COPD (chronic obstructive pulmonary disease) ICD Codes: J44.9 - COPD (chronic obstructive pulmonary disease) Status: Chronic (11) Hyperkalemia ICD Codes: E87.5 - Hyperkalemia Status: Acute Plan Patient has stage 4 chronic kidney disease, most likely due to Hypertensive renal disease or HIV disease. Now develop some MARION and Hyperkalemia. Patient has been non oliguric. Continue Bumex. Follow the urine out put and BMP. Creatinine improved now 2.5, K is 3.6. K was normal. Follow BMP in AM, Continue Bumex, urine out put is good. Millicent Ga MD Mar 26, 2017 15:34
--- NOTE | 2017-03-26 18:06 | PD.CARD.PN ---
Subjective Subjective Remarks Mild SOB, no CP, not sure about hospice, wants to go to rehab Objective Medications Administered Medications Medications (Trade) Dose Ordered Sig/Kaela Route PRN Reason Start Time Stop Time Status Last Admin Dose Admin Aspirin (Aspirin) 325 mg DAILY PO 03/21/17 09:00 03/26/17 09:49 Azithromycin (Zithromax 200 Mg/5 ml Liq) 200 mg DAILY PO 03/21/17 09:00 03/26/17 09:51 Emtricitabine/ Tenofovir (Truvada 200-300 Mg) 1 tab DAILY PO 03/21/17 09:00 03/26/17 09:50 Sodium Chloride (NS Flush) 2 ml BID IV FLUSH 03/20/17 21:00 03/26/17 09:49 Sodium Chloride (NS Flush) 2 ml UNSCH PRN IV FLUSH FLUSH AFTER USING IV ACCESS 03/20/17 14:00 03/23/17 17:41 Heparin Sodium (Porcine) (Heparin Inj) 5,000 units Q12HR SQ 03/20/17 21:00 03/26/17 09:46 Insulin Aspart (NovoLOG SUPPLEMENTAL SCALE) 1 ACHS SLIDING SCALE SQ 03/20/17 17:00 03/26/17 17:46 Metoprolol Tartrate (Lopressor) 50 mg BID PO 03/20/17 21:00 03/26/17 09:50 Oxycodone HCl (Roxicodone) 10 mg Q6H PRN PO pain 1-5 03/20/17 22:00 03/21/17 13:46 Oxycodone HCl (Roxicodone) 15 mg Q6H PRN PO pain 6-10 03/21/17 15:30 03/26/17 14:04 Bumetanide (Bumex Inj) 2 mg BID@,18 IV PUSH 03/22/17 18:00 03/26/17 09:48 Insulin Detemir (Levemir Inj) 50 units DAILY SQ 03/24/17 09:00 03/26/17 09:44 Prednisone (Deltasone) 40 mg DAILY PO 03/25/17 09:00 03/26/17 09:49 Vital Signs / I&O Vital Signs Date Time Temp Pulse Resp B/P (MAP) Pulse Ox O2 Delivery O2 Flow Rate FiO2 03/26/17 12:17 Nasal Cannula 4.00 10/10/17 12:00 96.7 76 20 152/94 (113) 97 03/26/17 08:01 98.2 71 18 145/86 (105) 99 03/26/17 07:34 Nasal Cannula 3.00 03/26/17 04:00 97.2 69 18 140/79 (99) 97 03/26/17 00:00 96.3 73 17 155/86 (109) 97 03/25/17 21:25 Nasal Cannula 4.00 03/25/17 20:42 91 Nasal Cannula 3.00 03/25/17 20:00 97.2 86 18 131/69 (89) 95 I/O 03/25/17 03/25/17 03/25/17 03/26/17 03/26/17 03/26/17 07:00 15:00 23:00 07:00 15:00 23:00 Intake Total 250 ml 490 ml Output Total 2100 ml 300 ml 300 ml Balance -2100 ml -300 ml 250 ml 490 ml -300 ml Intake Oral 250 ml 490 ml Output Urine Total 2100 ml 300 ml 300 ml # Voids 1 Physical Exam GENERAL: In NAD. SKIN: Warm and dry. HEAD: Normocephalic. EYES: No scleral icterus. No injection or drainage. NECK: Supple, trachea midline. No JVD or lymphadenopathy. CARDIOVASCULAR: Regular rate and rhythm without murmurs, gallops, or rubs. RESPIRATORY: Breath sounds equal bilaterally. No accessory muscle use. Distant BS. Few rhonchi. GASTROINTESTINAL: Abdomen soft, non-tender, nondistended. MUSCULOSKELETAL: No cyanosis, bilateral extensive lymphedema/elephantiasis Laboratory Laboratory Tests Test 03/26/17 06:08 Blood Urea Nitrogen 53 MG/DL Creatinine 2.56 MG/DL Random Glucose 104 MG/DL Calcium Level 7.6 MG/DL Phosphorus Level 2.9 MG/DL Sodium Level 144 MEQ/L Potassium Level 3.6 MEQ/L Chloride Level 103 MEQ/L Carbon Dioxide Level 34.6 MEQ/L Anion Gap 6 MEQ/L Estimat Glomerular Filtration Rate 32 ML/MIN Assessment and Plan Problem List: (1) CHF (congestive heart failure) ICD Codes: I50.9 - CHF (congestive heart failure) Status: Chronic (2) COPD (chronic obstructive pulmonary disease) ICD Codes: J44.9 - COPD (chronic obstructive pulmonary disease) Status: Chronic (3) DM (diabetes mellitus) ICD Codes: E11.9 - DM (diabetes mellitus) Status: Chronic (4) Hypertension ICD Codes: I10 - Hypertension Status: Chronic (5) HIV (human immunodeficiency virus infection) ICD Codes: Z21 - HIV (human immunodeficiency virus infection) Status: Chronic Assessment and Plan Still very edematous. Continue therapy for CHF including diuresis and beta sofya, did not tolerate JANAE/ARB, has significant renal insufficiency. Continue therapy for COPD exacerbation. Overall prognosis poor. Palliative care consulted, recommend to consider comfort care and hospice. The patient unsure about hospice, wishes to go rehab. Sudeep Chavez MD Mar 26, 2017 18:06
[2017-03-27] VITALS: BP 130/73; PULSE 71; RESP 18; TEMP 97; O2SAT 96
[2017-03-27 04:00] VITALS: BP 154/87; PULSE 72; RESP 18; TEMP 97.7; O2SAT 96
[2017-03-27 05:10] VITALS: O2SAT 96
--- NOTE | 2017-03-27 06:27 | MD ---
cc: Oswaldo DENNEY ADMISSION DATE: 03/20/2017 DISCHARGE DATE: [place] Visit Search.Discharge Date BRIEF DISCHARGE PULMONARY NOTE Mr. Thacker is a 56-year-old black male with multiple comorbidities including cardiomyopathy, had a recent cardiac arrest while in [place], apparently had a cardiac defibrillator placed at that time, history of hypertension, HIV, hepatitis C, COPD, was a former smoker, quit smoking about a year ago. Also has diabetes and severe chronic lymphedema in his legs. He presented to the emergency room here short of breath. Echocardiogram revealed severe left ventricular dysfunction with an EF of 20-25% with a dilated left ventricle, global left ventricular dysfunction. Dr. Sg Chavez has followed him during this hospital stay. His chest x-ray revealed cardiac decompensation on presentation. White count was 4000. Really no signs of pulmonary infection at the time of presentation. The patient did have a prior smoking history, probably does have underlying COPD. He has a nebulizer at home as well as oxygen which he has been using for sometime and had been stable on that routine. He improved with diuresis and breathing is now very comfortable, stable on 3-4 liters nasal cannula with an O2 sat of 98%. He has been continued on nebulized aerosol on a p.r.n. basis here and prednisone. I am going to drop the prednisone back because he is very stable today. PHYSICAL FINDINGS Currently afebrile, pulse is 70, respirations 18, blood pressure 130/80. NECK: Neck veins are flat. RESPIRATORY: His chest is diminished but clear. There are no basilar rales, wheezes or congestion. CARDIOVASCULAR: Soft systolic murmur. EXTREMITIES: Very significant chronic lower extremity edema. ASSESSMENT Mr. Thacker has multiple comorbidities but a very severe cardiomyopathy and probably to some extent underlying COPD related to his prior smoking history. He is really quite stable on aerosol therapy now though and oxygen which he does have at home and I would continue that. PLAN I will drop his prednisone back considerably tonight and he could go home on a short tapering course of prednisone. I will sign off at this point. His pulmonary status is very stable clinically. MD MARK Monroe/EDWARD /6:25 PM /6:12 AM
[2017-03-27 07:50] VITALS: BP 145/88; PULSE 68; RESP 20; TEMP 96.3; O2SAT 99
[2017-03-27] MEDS: INSULIN ASPART SUPPLEMENTAL SCALE SQ SCH ×3 (08:00→18:07)
[2017-03-27] MEDS ORDERED: predniSONE 20 MG TAB PO SCH (09:00)
[2017-03-27] MEDS: DOLUTEGRAVIR SODIUM 50 MG TAB PO SCH (09:55)
[2017-03-27] MEDS: ASPIRIN 325 MG TAB PO SCH (09:55)
[2017-03-27] MEDS: AZITHROMYCIN SUSP 200 MG/5 ML 15 ML BTL PO SCH (09:55)
[2017-03-27] MEDS: EMTRICITABINE/TENOFOVIR 200 MG/300 MG TAB PO SCH (09:55)
[2017-03-27] MEDS: HEPARIN SODIUM - SQ 10,000 UNITS/ML VIAL SQ SCH (09:55)
[2017-03-27] MEDS: SODIUM CHLORIDE 0.9% FLUSH 10 ML FLUSH IV FLUSH SCH (09:56)
[2017-03-27] MEDS: METOPROLOL TARTRATE 50 MG TAB PO SCH (09:56)
[2017-03-27] MEDS: BUMETANIDE INJ 1 MG/4 ML VIAL IV PUSH SCH (09:56)
[2017-03-27] MEDS: INSULIN DETEMIR 100 UNITS/ML VIAL SQ SCH (09:58)
--- NOTE | 2017-03-27 11:15 | HHI.PR ---
Subjective Remarks Follow-up CHF, acute on chronic renal failure, diabetes. The patient states that he feels better and wants to go home. States that his breathing is about at his baseline. Denies chest pain. No nausea or vomiting. Objective Vitals Vital Signs Date Time Temp Pulse Resp B/P (MAP) Pulse Ox O2 Delivery O2 Flow Rate FiO2 03/27/17 09:50 99 Nasal Cannula 4.00 03/27/17 07:50 96.3 68 20 145/88 (107) 99 03/27/17 05:10 96 Nasal Cannula 4.00 03/27/17 04:00 97.7 72 18 154/87 (109) 96 03/27/17 00:00 97.0 71 18 130/73 (92) 96 03/26/17 20:40 Nasal Cannula 4.00 03/26/17 20:00 97.6 98 17 147/84 (105) 94 03/26/17 19:47 95 Nasal Cannula 4.00 03/26/17 18:00 98.1 73 18 135/84 (101) 98 03/26/17 12:17 Nasal Cannula 4.00 03/26/17 12:00 96.7 76 20 152/94 (113) 97 I/O 03/26/17 03/26/17 03/26/17 03/27/17 03/27/17 03/27/17 07:00 15:00 23:00 07:00 15:00 23:00 Intake Total 250 ml 490 ml 240 ml 480 ml Output Total 1400 ml 850 ml Balance 250 ml 490 ml -1160 ml -370 ml Intake Oral 250 ml 490 ml 240 ml 480 ml Output Urine Total 1400 ml 850 ml # Voids 1 Result Diagram: 03/23/17 0550 03/26/17 0608 Imaging Last Impressions Renal Ultrasound 03/22/17 0000 Signed Impressions: Service Date/Time: Wednesday, March 22, 2017 13:22 - CONCLUSION: 1. Stable sonographic appearance of the kidneys with diffuse cortical echogenicity consistent with medical renal disease and stable mild prominence of the central renal pelves. 2. Incidental note of small left pleural effusion. Robert Gutierrez MD Chest X-Ray 03/20/17 1046 Signed Impressions: Service Date/Time: Monday, March 20, 2017 11:03 - CONCLUSION: Moderate cardiac decompensation Daniel Flores MD Objective Remarks General: No acute distress. Heart: Regular rate and rhythm. No murmur. Lungs: Decreased breath sounds in both bases. Breathing is nonlabored. Abdomen: Soft, nontender, nondistended. Extremities: Severe lymphedema bilaterally, right greater than left. Psych: Alert and oriented. Procedures None Urinary Catheter: No Vascular Central Line Catheter: No A/P Problem List: (1) Acute on chronic systolic (congestive) heart failure ICD Code: I50.23 - Acute on chronic systolic (congestive) heart failure (2) COPD exacerbation ICD Code: J44.1 - COPD exacerbation Status: Acute (3) Hypertension ICD Code: I10 - Hypertension Status: Chronic (4) Chronic acquired lymphedema ICD Code: I89.0 - Chronic acquired lymphedema Status: Chronic (5) DM (diabetes mellitus) ICD Code: E11.9 - DM (diabetes mellitus) Status: Chronic (6) HIV (human immunodeficiency virus infection) ICD Code: Z21 - HIV (human immunodeficiency virus infection) Status: Chronic Assessment and Plan 1. Acute on chronic systolic congestive heart failure: Patient has AICD in place. 2-D echocardiogram shows global dysfunction with ejection fraction of 20- 25%. Appreciate cardiology recommendations. Continue diuresis. Cardiology recommending hospice, but patient and his family do not feel that he should go on hospice. Continue fluid restriction, beta sofya, aspirin. Patient reports allergy to alicja inhibitors. 2. Acute COPD exacerbation: Improved. Appreciate pulmonology recommendations. Continue prednisone, supplemental oxygen, bronchodilators. 3. Acute on chronic renal failure: Appreciate nephrology recommendations. Creatinine slowly improving. 4. Diabetes mellitus type 2: Continue Levemir. Monitor Accu-Cheks and cover with sliding scale insulin. 5. Chronic pain: Patient has been requesting IV pain meds. Continue oxycodone as needed. 6. HIV: Continue antivirals. 7. DVT prophylaxis: Heparin. Discharge Planning Plan for discharge when cleared by nephrology, cardiology. Patient has been cleared for discharge by pulmonology. Awaiting his call therapy eval to determine safety of discharge home versus need for SNF placement. Carlos Alberto Kauffman MD Mar 27, 2017 11:14
[2017-03-27 11:50] VITALS: BP 143/94; PULSE 68; RESP 20; TEMP 96.2; O2SAT 98
[2017-03-27 15:50] VITALS: BP 150/95; PULSE 72; RESP 20; TEMP 97.5; O2SAT 98
--- NOTE | 2017-03-27 16:31 | PD.CARD.PN ---
Subjective Subjective Remarks No CP, minimal SOB, feels better, wants to go home Objective Medications Administered Medications Medications (Trade) Dose Ordered Sig/Kaela Route PRN Reason Start Time Stop Time Status Last Admin Dose Admin Aspirin (Aspirin) 325 mg DAILY PO 03/21/17 09:00 03/27/17 09:55 Azithromycin (Zithromax 200 Mg/5 ml Liq) 200 mg DAILY PO 03/21/17 09:00 03/27/17 09:55 Emtricitabine/ Tenofovir (Truvada 200-300 Mg) 1 tab DAILY PO 03/21/17 09:00 03/27/17 09:55 Sodium Chloride (NS Flush) 2 ml BID IV FLUSH 03/20/17 21:00 03/27/17 09:56 Sodium Chloride (NS Flush) 2 ml UNSCH PRN IV FLUSH FLUSH AFTER USING IV ACCESS 03/20/17 14:00 03/23/17 17:41 Heparin Sodium (Porcine) (Heparin Inj) 5,000 units Q12HR SQ 03/20/17 21:00 03/27/17 09:55 Insulin Aspart (NovoLOG SUPPLEMENTAL SCALE) 1 ACHS SLIDING SCALE SQ 03/20/17 17:00 03/26/17 20:31 Metoprolol Tartrate (Lopressor) 50 mg BID PO 03/20/17 21:00 03/27/17 09:56 Oxycodone HCl (Roxicodone) 10 mg Q6H PRN PO pain 1-5 03/20/17 22:00 03/21/17 13:46 Oxycodone HCl (Roxicodone) 15 mg Q6H PRN PO pain 6-10 03/21/17 15:30 03/27/17 09:59 Bumetanide (Bumex Inj) 2 mg BID@,18 IV PUSH 03/22/17 18:00 03/27/17 09:56 Insulin Detemir (Levemir Inj) 50 units DAILY SQ 03/24/17 09:00 03/27/17 09:58 Prednisone (Deltasone) 20 mg DAILY PO 03/27/17 09:00 03/27/17 09:56 Current Medications Medications (Trade) Dose Ordered Sig/Kaela Route Start Time Stop Time Status Last Admin (Aspirin) 325 mg DAILY PO 03/21/17 09:00 03/27/17 09:55 (Zithromax 200 Mg/5 ml Liq) 200 mg DAILY PO 03/21/17 09:00 03/27/17 09:55 (Truvada 200-300 Mg) 1 tab DAILY PO 03/21/17 09:00 03/27/17 09:55 (NS Flush) 2 ml BID IV FLUSH 03/20/17 21:00 03/27/17 09:56 (NS Flush) 2 ml UNSCH PRN IV FLUSH 03/20/17 14:00 03/23/17 17:41 (Heparin Inj) 5,000 units Q12HR SQ 03/20/17 21:00 03/27/17 09:55 (D50w (Vial) Inj) 50 ml UNSCH PRN IV PUSH 03/20/17 14:15 (Glucagon Inj) 1 mg UNSCH PRN OTHER 03/20/17 14:15 (NovoLOG SUPPLEMENTAL SCALE) 1 ACHS SLIDING SCALE SQ 03/20/17 17:00 03/26/17 20:31 (Albuterol Neb) 2.5 mg Q2HR NEB PRN INH 03/20/17 16:00 (Lopressor) 50 mg BID PO 03/20/17 21:00 03/27/17 09:56 (Roxicodone) 10 mg Q6H PRN PO 03/20/17 22:00 03/21/17 13:46 (Roxicodone) 15 mg Q6H PRN PO 03/21/17 15:30 03/27/17 09:59 (Dulcolax Ec) 10 mg DAILY PRN PO 03/21/17 15:30 (Bumex Inj) 2 mg BID@18 IV PUSH 03/22/17 18:00 03/27/17 09:56 (Levemir Inj) 50 units DAILY SQ 03/24/17 09:00 03/27/17 09:58 (Deltasone) 20 mg DAILY PO 03/27/17 09:00 03/27/17 09:56 Vital Signs / I&O Vital Signs Date Time Temp Pulse Resp B/P (MAP) Pulse Ox O2 Delivery O2 Flow Rate FiO2 03/27/17 11:50 96.2 68 20 143/94 (110) 98 03/27/17 09:50 99 Nasal Cannula 4.00 03/27/17 07:50 96.3 68 20 145/88 (107) 99 03/27/17 05:10 96 Nasal Cannula 4.00 03/27/17 04:00 97.7 72 18 154/87 (109) 96 03/27/17 00:00 97.0 71 18 130/73 (92) 96 03/26/17 20:40 Nasal Cannula 4.00 03/26/17 20:00 97.6 98 17 147/84 (105) 94 03/26/17 19:47 95 Nasal Cannula 4.00 03/26/17 18:00 98.1 73 18 135/84 (101) 98 I/O 03/26/17 03/26/17 03/26/17 03/27/17 03/27/17 03/27/17 07:00 15:00 23:00 07:00 15:00 23:00 Intake Total 250 ml 490 ml 240 ml 480 ml Output Total 1400 ml 850 ml Balance 250 ml 490 ml -1160 ml -370 ml Intake Oral 250 ml 490 ml 240 ml 480 ml Output Urine Total 1400 ml 850 ml # Voids 1 Physical Exam GENERAL: In NAD. SKIN: Warm and dry. HEAD: Normocephalic. EYES: No scleral icterus. No injection or drainage. NECK: Supple, trachea midline. No JVD or lymphadenopathy. CARDIOVASCULAR: Regular rate and rhythm without murmurs, gallops, or rubs. RESPIRATORY: Breath sounds equal bilaterally. No accessory muscle use. Distant BS. Few rhonchi. GASTROINTESTINAL: Abdomen soft, non-tender, nondistended. MUSCULOSKELETAL: No cyanosis, bilateral extensive lymphedema/elephantiasis Assessment and Plan Problem List: (1) CHF (congestive heart failure) ICD Codes: I50.9 - CHF (congestive heart failure) Status: Chronic (2) COPD (chronic obstructive pulmonary disease) ICD Codes: J44.9 - COPD (chronic obstructive pulmonary disease) Status: Chronic (3) DM (diabetes mellitus) ICD Codes: E11.9 - DM (diabetes mellitus) Status: Chronic (4) Hypertension ICD Codes: I10 - Hypertension Status: Chronic (5) HIV (human immunodeficiency virus infection) ICD Codes: Z21 - HIV (human immunodeficiency virus infection) Status: Chronic Assessment and Plan He is about as stable as possible given his comorbidities. Continue therapy for CHF including diuresis and beta sofya, did not tolerate JANAE/ARB, has significant renal insufficiency. Continue therapy for COPD exacerbation. Overall prognosis poor. Palliative care consulted, recommend to consider comfort care and hospice. The patient unsure about hospice, wished to go to rehab. Today he states he would prefer to go home. OK to discharge from my standpoint. Sudeep Chavez MD Mar 27, 2017 16:31
--- NOTE | 2017-03-27 16:39 | HHI.NPPN ---
Subjective History of Present Illness 56-year-old male with a past medical history of ischemic heart disease, congestive heart failure, history of HIV, hepatitis C, chronic obstructive pulmonary disease, diabetes mellitus, chronic lymphedema of the legs, and chronic kidney disease who came to the hospital with a complaint of shortness of breath. I was called to see the patient because of chronic kidney disease, elevated creatinine and high potassium level. The patient has a known history of chronic kidney disease. He has a baseline creatinine of around 2.1-2.3 according to the patient. Additional Remarks Patient is alert, no SOB, with nasal cannula, sitting on chair, clinically same , not in distress. Review of Systems General Constitutional: Fatigue Respiratory Lungs: SOB Cardiovascular Cardiac: Edema, [place] Objective Data Data Vital Signs Date Time Temp Pulse Resp B/P (MAP) Pulse Ox O2 Delivery O2 Flow Rate FiO2 03/27/17 11:50 96.2 68 20 143/94 (110) 98 03/27/17 09:50 99 Nasal Cannula 4.00 03/27/17 07:50 96.3 68 20 145/88 (107) 99 03/27/17 05:10 96 Nasal Cannula 4.00 03/27/17 04:00 97.7 72 18 154/87 (109) 96 03/27/17 00:00 97.0 71 18 130/73 (92) 96 03/26/17 20:40 Nasal Cannula 4.00 03/26/17 20:00 97.6 98 17 147/84 (105) 94 03/26/17 19:47 95 Nasal Cannula 4.00 03/26/17 18:00 98.1 73 18 135/84 (101) 98 -: 03/23/17 0550 03/26/17 0608 Physical Exam General Appearance: No Acute Distress, Comfortable Eyes Eye Exam: Pupils Equal Throat Throat Exam: Oral Mucosa [place] & Moist Neck Neck Exam: Neck Supple Pulmonary Resp Exam: No Distress, Crackles, Rhonchi, Decreased Bases, Diminished Breath Sounds Cardiology CV Exam: Regular, Normal Sinus Rhythm Gastrointestinal/Abdomen GI Exam: Soft, Non-Tender, Bowel Sounds Present, Distended Extremeties Extremities Exam: Moderate Edema, Pitting Edema, Dependent Edema (Bilateral lymphedema, more in Rt. leg.) Neurologic Neuro Exam: Alert, Awake, Oriented Psychiatric Psych Exam: Appropriate Responses Assessment/Plan Assessment Summary: [place]/Acute Renal Failure, Anemia of CKD, Fluid/Volume Overload, Hypertension, CKD Stage IV Electrolyte Assessment: Hyperkalemia Problem List: (1) Stage 4 chronic kidney disease ICD Codes: N18.4 - Chronic kidney disease, stage 4 (severe) (2) Acute kidney injury ICD Codes: N17.9 - Acute kidney failure, unspecified (3) Anemia ICD Codes: D64.9 - Anemia Status: Acute (4) AIDS ICD Codes: B20 - AIDS Status: Chronic (5) Hypothyroidism ICD Codes: E03.9 - Hypothyroidism Status: Chronic (6) Hypoxia ICD Codes: R09.02 - Hypoxia Status: Acute (7) Acute on chronic systolic (congestive) heart failure ICD Codes: I50.23 - Acute on chronic systolic (congestive) heart failure (8) Shortness of breath ICD Codes: R06.02 - Shortness of breath Status: Chronic (9) History of hepatitis C ICD Codes: Z86.19 - Personal history of other infectious and parasitic diseases Status: Acute (10) COPD (chronic obstructive pulmonary disease) ICD Codes: J44.9 - COPD (chronic obstructive pulmonary disease) Status: Chronic (11) Hyperkalemia ICD Codes: E87.5 - Hyperkalemia Status: Acute Plan Patient has stage 4 chronic kidney disease, most likely due to Hypertensive renal disease or HIV disease. Now develop some MARION and Hyperkalemia. Patient has been non oliguric. Continue Bumex. Follow the urine out put and BMP. Creatinine improved now 2.5, K is 3.6. K was normal. No new BMP Today. Creatinine was close to his baseline. OK to D/C from Nephrology. Follow up with me in 3-4 weeks. Millicent Ga MD Mar 27, 2017 16:39
--- NOTE | 2017-03-27 16:44 | HHI.FF ---
Face to Face Verification Diagnosis: (1) Chronic systolic CHF (congestive heart failure) (2) Chronic acquired lymphedema (3) COPD (chronic obstructive pulmonary disease) Physical Therapy Order: Evaluate and Treat Home Health Nursing Order: Nursing assessment with vital signs I have seen patient Alex Thacker on 03/27/17. My clinical findings support the need for the requested home health care services because: Patient has SOB I certify that my clinical findings support that this patient is homebound because: Hx COPD- exertion dyspnea/weakness Unsteady gait/balance Carlos Alberto Kauffman MD Mar 27, 2017 16:44
[2017-03-27] MEDS ORDERED: PRED20 PO (16:51)
[2017-03-27] MEDS ORDERED: ASPI325T PO (16:51)
[2017-03-27] MEDS ORDERED: BUME2TAB PO (16:51)
[2017-03-27] MEDS ORDERED: LEVEMIR SQ (16:51)
[2017-03-27] MEDS ORDERED: METO-309 PO (16:51)
[2017-03-27] MEDS ORDERED: WALKER WHEELS/F1 MIS (16:51)
[2017-03-27] MEDS ORDERED: AZIT200S PO (16:51)
--- NOTE | 2017-03-27 16:52 | HHI.DS ---
Discharge Summary Admission Date Mar 20, 2017 at 15:09 Discharge Date: Mar 27, 2017 Admitting Diagnosis COPD, CHF, acute on chronic kidney disease, diabetes mellitus (1) Acute on chronic systolic (congestive) heart failure ICD Code: I50.23 - Acute on chronic systolic (congestive) heart failure (2) COPD exacerbation ICD Code: J44.1 - COPD exacerbation Status: Acute (3) Hypertension ICD Code: I10 - Hypertension Status: Chronic (4) Chronic acquired lymphedema ICD Code: I89.0 - Chronic acquired lymphedema Status: Chronic (5) DM (diabetes mellitus) ICD Code: E11.9 - DM (diabetes mellitus) Status: Chronic (6) HIV (human immunodeficiency virus infection) ICD Code: Z21 - HIV (human immunodeficiency virus infection) Status: Chronic Procedures None Brief History - From Admission 56-year-old male with multiple comorbid conditions including hypertension, CHF, HIV, hepatitis C, COPD, diabetes mellitus, chronic lymphedema who presented to the emergency room with complaint of worsening shortness of breath. Patient reports he has been staying in [place], he had an AICD placed 3 months ago because his heart function Declining and getting worse. He reports about 3 weeks ago he went into cardiac arrest requiring CPR. He was discharged to a rehabilitation facility. He recently drove down from [place] to this area because he believed he would not survive the winter up there. He presented to the emergency room with worsening shortness of breath. He has chronic chest pain. His BNP on presentation is 1600 and chest x-ray consistent with heart failure. Patient is being admitted for CHF, COPD exacerbation, acute on chronic renal failure. Per discussion with the ER physician, he was in respiratory distress on arrival , by the time of my evaluation, he reports feeling much better after receiving breathing treatments and steroids. He feels okay at rest but reports significant dyspnea with minimal exertion. CBC/BMP: 03/23/17 0550 03/26/17 0608 Significant Findings Laboratory Tests Test 03/26/17 06:08 Blood Urea Nitrogen 53 MG/DL (7-18) Creatinine 2.56 MG/DL (0.60-1.30) Calcium Level 7.6 MG/DL (8.5-10.1) Carbon Dioxide Level 34.6 MEQ/L (21.0-32.0) Estimat Glomerular Filtration Rate 32 ML/MIN (>89) Imaging Last Impressions Renal Ultrasound 03/22/17 0000 Signed Impressions: Service Date/Time: Wednesday, March 22, 2017 13:22 - CONCLUSION: 1. Stable sonographic appearance of the kidneys with diffuse cortical echogenicity consistent with medical renal disease and stable mild prominence of the central renal pelves. 2. Incidental note of small left pleural effusion. Robert Gutierrez MD Chest X-Ray 03/20/17 1046 Signed Impressions: Service Date/Time: Monday, March 20, 2017 11:03 - CONCLUSION: Moderate cardiac decompensation Daniel Flores MD PE at Discharge General: No acute distress. Heart: Regular rate and rhythm. No murmur. Lungs: Decreased breath sounds in both bases. Breathing is nonlabored. Abdomen: Soft, nontender, nondistended. Extremities: Severe lymphedema bilaterally, right greater than left. Psych: Alert and oriented. Hospital Course Patient was admitted for management of acute on chronic systolic congestive heart failure as well as acute COPD exacerbation and acute on chronic renal failure. Pulmonology, cardiology, nephrology were consulted. IV diuretics were continued. The patient's renal function monitored closely. Palliative care was consulted. The patient did not want to pursue comfort care measures and wanted to remain aggressive with his treatment. The patient was cleared for discharge by pulmonology, cardiology, and nephrology. He was felt to be stable for discharge home with home health for physical therapy. He stated that he would have family with him. Pt Condition on Discharge: Stable Discharge Disposition: Disch w/ Home Health Serv Discharge Time: > 30 minutes Discharge Instructions DIET: Follow Instructions for: Renal Failure Diet Additional Diet Instructions: Fluid restriction 1500ml/day Activities you can perform: Regular-No Restrictions Follow up Referrals: Cardiology - 2 Weeks with Sudeep Chavez MD Nephrology - 3 Weeks with Millicent Ga MD PCP Follow-up - 1 Week Pulmonology - 2 Weeks with Oswaldo Nogueira MD New Medications: Bumetanide (Bumetanide) 2 Mg Tab 2 MG PO BID for Diuresis, #60 TAB 0 Refills Walker with Front Wheels (Walker with Front Wheels) 1 Mis Mis EA .ROUTE DIRECTED, #1 0 Refills Aspirin (Aspirin) 325 Mg Tab 325 MG PO DAILY for Blood Clot Prevention, #30 TAB 0 Refills Azithromycin Liq (Zithromax Liq) 200 Mg/5 Ml Susp 200 MG PO DAILY for Infection, #150 ML 0 Refills Insulin Detemir Inj (Levemir Inj) 1,000 unit/ 10 ML Vial 50 UNITS SQ DAILY for Blood Sugar Management, #30 INJECTION 0 Refills Do not mix with any other Insulin. Metoprolol Tartrate (Lopressor) 50 Mg Tab 50 MG PO BID for Blood Pressure Management, #60 TAB 0 Refills Prednisone (Prednisone) 20 Mg Tab 20 MG PO DAILY for Anti-inflammatory, #30 TAB 0 Refills Continued Medications: Dolutegravir Sodium (Tivicay) 50 Mg Tab 1 TAB PO DAILY Emtricitabine-Tenofovir Disopr (Truvada) 200 Mg-300 Mg Tab 1 TAB PO DAILY, TAB Discontinued Medications: Aspirin (Aspirin 325 Mg Tab) 325 Mg Tab 325 MG PO DAILY, TAB Azithromycin (Zithromax) 200 Mg/5 Ml Lashell 200 MG PO DAILY, LASHELL Clonidine 0.1 mg (Catapres 0.1 mg) 0.1 Mg Tab 1 TAB PO DAILY, TAB Furosemide (Lasix) 40 Mg Tab 40 MG PO BID for CHF for 30 Days, TAB Insulin Detemir (Levemir Insulin) 100 Units/Ml Inj 60 UNITS SQ DAILY, #10 ML Metoprolol Tartrate 50 mg (Metoprolol Tartrate 50 mg) 50 Mg Tab 50 MG PO BID for Regulate Heart Beat for 30 Days, TAB Prednisone (Deltasone 50 Mg Tab) 50 Mg Tab 50 MG PO DAILY, #4 TAB Carlos Alberto Kauffman MD Mar 27, 2017 16:52
--- NOTE | 2017-04-02 13:04 | PQ ---
Physician Query Response Document PATIENT: MERARY CLAYTON : 1960 ADMIT DATE: 03/20/2017 3:09 PM DISCH DATE: 03/27/2017 7:40 PM RESPONDING PROVIDER #: [email or web address] QUERY TEXT: HIV Clarification and Associated Conditions HIV (Human immunodeficiency virus) is documented in the medical record. Please specify the type Such as: -- Acquired immune deficiency syndrome [AIDS] -- MNLU-enfwdcn-mzprrtm complex [ARC] -- Symptomatic -- Asymptomatic -- With current or previous HIV-related condition (please specify related condition) -- Exposure to HIV -- Inconclusive serologic evidence of HIV -- Other, please specify Also please include any associated conditions, if applicable. If you have any additional questions/comments and/or concerns, please do not hesitate to reach out to the CDI/Coding Hotline, Ext. [phone]. The patient's Clinical Indicators include: Discharge Summary lists diagnosis as: (6) HIV (human immunodeficiency virus infection) ICD Code: Z21 - HIV (human immunodeficiency virus infection) Status: Chronic Progress Notes from Attendings list same diagnosis, in addition: HIV: Continue antivirals (patient w as on antiviral therapy as OP). Other Progress Notes document: history of HIV No other documentation of HIV related disease other than Dr. Ga's notes as listed below. Dr. Ga's consult of 03/22/17 documents: 8. HIV with advanced disease The patient has some element of acute kidney injury along with the chronic kidney disease. The chroni c kidney disease is most likely related to either hypertensive diabetic renal disease or possibility of HIV nephropathy and now there is some acute worsening. Dr. Ga's Progress Notes document diagnosis of: (4) AIDS ICD Codes: B20 - AIDS Status: Chronic Query created by: Kerry Berman on 03/28/2017 10:42 AM RESPONSE TEXT: Provider disagreed with this CDI query. Electronically signed by: Carlos Alberto Kauffman MD 04/02/2017 1:00 PM
== END 2017-03-27 19:40 | disposition home health service (06) | DRG 291 ==
LOC: NEPC 10:30 → NEDA 15:09 → HOCB 17:39
PROVIDERS: ADMIT Family Medicine; ATTEND Family Medicine
DX: I13.0 Hypertensive heart and chronic kidney disease with heart failure and stage 1 through stage 4 chronic kidney disease, or unspecified chronic kidney disease (principal); I50.23 Acute on chronic systolic (congestive) heart failure; N17.9 Acute kidney failure, unspecified; N18.4 Chronic kidney disease, stage 4 (severe); J44.1 Chronic obstructive pulmonary disease with (acute) exacerbation; I42.9 Cardiomyopathy, unspecified; E11.22 Type 2 diabetes mellitus with diabetic chronic kidney disease; Z95.810 Presence of automatic (implantable) cardiac defibrillator; Z79.4 Long term (current) use of insulin; E87.5 Hyperkalemia; G89.29 Other chronic pain; Z21 Asymptomatic human immunodeficiency virus [HIV] infection status; I89.0 Lymphedema, not elsewhere classified; B19.20 Unspecified viral hepatitis C without hepatic coma; E66.9 Obesity, unspecified; Z68.37 Body mass index [BMI] 37.0-37.9, adult; Z87.891 Personal history of nicotine dependence
CPT/HCPCS: 36600; 71010; 76775; 80048; 80053; 80307; 81001; 82550; 82552; 82805; 82948; 83735; 83880; 84100; 84484; 85025; 85027; 87640; 87641; 93005; 93306; 94640; 94664; 96374; 96375; J1170; J1644; J1815; J1940; J2920; J2930; J7512; J7613

== ENCOUNTER 2017-10-26 14:11 | Inpatient (IN) | payer MEDICARE, OTHER ==
[2017-10-26] VITALS (10 sets, daily range): BP systolic 101–144; BP diastolic 59–78; PULSE 86–91; RESP 14–21; TEMP 97.6–98; O2SAT 92–100
[~2017-10-26] VITALS: Ht 182.9 cm; Wt 128.0 kg
[~2017-10-26 14:11] MED LIST changes: +ASPI-183 PO; -ASPI325T PO; +AZIT200S PO; +BUME2TAB PO; -CLON.1 PO; -FURO1TAB93 PO; +METO-309 PO; -METO50TA PO; +PRED20 PO; -PRED50 PO; +WALKER WHEELS/F1 MIS; -ZITH200S PO
--- NOTE | 2017-10-26 14:53 | RADRPT ---
EXAM DATE/TIME: 10/26/2017 14:31 [facility] COMPARISON: CHEST SINGLE AP, March 20, 2017, 11:03. INDICATIONS : Shortness of breath. MEDICAL HISTORY : Chronic obstructive pulmonary disease. Congestive heart failure. SURGICAL HISTORY : Pacemaker. ENCOUNTER: Initial ACUITY: 1 day PAIN SCORE: Non-responsive. LOCATION: Bilateral chest FINDINGS: A single view of the chest demonstrates the lungs to be symmetrically aerated without evidence of mas s, infiltrate or effusion. Prominent cardiac silhouette. Pacer evident. Osseous structures are int act. CONCLUSION: Prominent cardiac silhouette. Pericardial effusion cannot be entirely excluded. No failure Sung Phillips MD FACR on October 26, 2017 at 14:50 Board Certified Radiologist. This report was verified electronically.
[2017-10-26] MEDS ORDERED: RITO100 PO (15:15)
[2017-10-26] MEDS ORDERED: SERO25TA PO (15:15)
[2017-10-26] MEDS ORDERED: INTE200T2 PO (15:15)
[2017-10-26] MEDS ORDERED: DILA2TAB4 PO (15:15)
[2017-10-26] MEDS ORDERED: ASCO500T PO (15:15)
[2017-10-26] MEDS ORDERED: RALT400 PO (15:15)
[2017-10-26] MEDS ORDERED: SPIRCAP INH (15:15)
[2017-10-26] MEDS ORDERED: BUME1TAB PO (15:15)
[2017-10-26] MEDS ORDERED: VENTAER INH (15:15)
[2017-10-26] MEDS ORDERED: MULTTAB67 PO (15:15)
[2017-10-26] MEDS ORDERED: NORC5TAB PO (15:15)
[2017-10-26] MEDS ORDERED: FAMO20TA2 PO (15:15)
[2017-10-26] MEDS ORDERED: CIPR-9 PO (15:15)
[2017-10-26] MEDS ORDERED: GABA100C4 PO (15:28)
[2017-10-26] MEDS ORDERED: MILKSUS PO (15:28)
[2017-10-26] MEDS ORDERED: LEVO50TA4 PO (15:28)
[2017-10-26] MEDS ORDERED: INSU1INJ18 SQ (15:28)
[2017-10-26] MEDS ORDERED: CHLO.12%30 SWISH-SPIT (15:28)
[2017-10-26] MEDS ORDERED: IPRASOL INH (15:28)
[2017-10-26 15:36] LABS: BACTERIA, URINE MANY /hpf; BILIRUBIN, URINE NEG (NEG); BLOOD, URINE MOD (NEG); GLUCOSE,URINE NEG (NEG); KETONE, URINE NEG (NEG); NITRITE,URINE NEG (NEG); PH, URINE 5.5 (5.0-8.5); SQUAMOUS EPITHELIAL CELL URINE <1 /hpf (0-5); URINE COLOR YELLOW (YELLW/STRAW); URINE LEUKOCYTE ESTERASE LARGE (NEG); WHITE BLOOD CELL CLUMPS MANY
--- NOTE | 2017-10-26 15:39 | PD ---
HPI . Respiratory Chief Complaint: Respiratory Symptoms Time Seen by Provider: 14:25 Travel History International Travel<30 days: No Contact w/Intl Traveler<30days: No Traveled to known affect area: No History of Present Illness HPI This patient is an extremely poor historian. He states that he just does not feel well. He is not really able to tell me anything more than that. He cannot tell me when he started feeling poorly. He came to us from a long-term by [facility]. He has multiple medical problems including hepatitis B, hepatitis C, a, COPD, chronic kidney disease, hypertension, CHF. PFSH Past Medical History Arthritis: Yes (RA) Asthma: No Autoimmune Disease: Yes (HIV) Blood Disorders: No Anxiety: No Depression: Yes Heart Rhythm Problems: Yes (HAS BEEN TOLD HE NEEDS A "DEFIBRILLATOR" AND "STENTS") Cancer: Yes (LYMPHOMA;CHORNIC LYMPHEDEMA) Cardiovascular Problems: Yes High Cholesterol: No Chemotherapy: Yes Chest Pain: Yes Congestive Heart Failure: Yes COPD: Yes Cerebrovascular Accident: No Coronary Artery Disease: Yes Diabetes: Yes Patient Takes Glucophage: Yes Diminished Hearing: No Endocrine: No Gastrointestinal Disorders: Yes GERD: Yes Glaucoma: No Genitourinary: Yes Headaches: No Hepatitis: Yes Hiatal Hernia: No Heparin Induced Thrombocytopen: No Hypertension: Yes Immune Disorder: Yes (HIV/AIDS) Implanted Vascular Access Dvce: No Kidney Stones: No Musculoskeletal: No Neurologic: No Psychiatric: No Reproductive: No Respiratory: Yes Immunizations Current: No Migraines: No Myocardial Infarction: Yes Radiation Therapy: No Renal Failure: No Seizures: No Sickle Cell Disease: No Sleep Apnea: Yes Thyroid Disease: Yes Ulcer: No Tetanus Vaccination: Unknown Influenza Vaccination: No Past Surgical History Abdominal Surgery: No AICD: No Appendectomy: No Arteriovenous Shunt: No Cardiac Surgery: Yes Cholecystectomy: No Ear Surgery: No Endocrine Surgery: No Eye Surgery: No Genitourinary Surgery: No Gynecologic Surgery: No Insulin Pump: No Joint Replacement: No Neurologic Surgery: No Oral Surgery: Yes Pacemaker: No Thoracic Surgery: No Other Surgery: Yes ( GRAFT R. UPPER LEG) Social History Alcohol Use: No Tobacco Use: No Substance Use: Yes (cocaine, marijuana) Allergies-Medications (Allergen,Severity, Reaction): Coded Allergies: benazepril (Unverified Allergy, Severe, SWELLING MOUTH ,TONGUE, 03/20/17) captopril (Unverified Allergy, Severe, SWELLING MOUTH ,TONGUE, 03/20/17) enalaprilat (Unverified Allergy, Severe, SWELLING MOUTH ,TONGUE, 03/20/17) fosinopril (Unverified Allergy, Severe, SWELLING MOUTH ,TONGUE, 03/20/17) lisinopril (Unverified Allergy, Severe, SWELLING MOUTH ,TONGUE, 03/20/17) quinapril (Unverified Allergy, Severe, SWELLING MOUTH ,TONGUE, 03/20/17) Reported Meds & Prescriptions Reported Meds & Active Scripts Active Reported Duoneb (Ipratropium-Albuterol Neb) 0.5-2.5 Mg/3 Ml Neb 1 Nebule INH Q6HR NEB Milk of Magnesia Liq (Magnesium Hydroxide) 400 Mg/5 Ml Susp 30 Ml PO DAILY PRN Chlorhexidine Gluconate (Mouth) Liq (Chlorhexidine Gluconate) 0.12% Soln 15 Ml SWISH-SPIT BID Basaglar Kwikpen (Insulin Glargine) 100 Unit/Ml Pen 25 Units SQ HS Gabapentin 100 Mg Cap 200 Mg PO Q8HR Levothyroxine (Levothyroxine Sodium) 50 Mcg Tab 50 Mcg PO DAILY Norvir (Ritonavir) 100 Mg Cap 100 Mg PO DAILY Famotidine 20 Mg Tab 20 Mg PO DAILY Bumetanide 1 Mg Tab 1 Mg PO DAILY Spiriva Handihaler (Tiotropium Inh) 18 Mcg Cap 18 Mcg INH DAILY 1 capsule = 18 mcg Intelence (Etravirine) 200 Mg Tab 200 Mg PO BID Isentress (Raltegravir) 400 Mg Tab 400 Mg PO BID Dania (Hydrocodone-Acetaminophen) 5 Mg-325 Mg Tab 1 Tab PO Q4H PRN Ventolin Hfa 18 GM Inh (Albuterol Sulfate) 90 Mcg/Act Aer 1 Puff INH Q6H PRN Dilaudid (Hydromorphone HCl) 2 Mg Tab 2 Mg PO Q6H PRN Cipro (Ciprofloxacin HCl) 500 Mg Tab 500 Mg PO Q12HR Seroquel (Quetiapine Fumarate) 25 Mg Tab 25 Mg PO BID Ascorbic Acid 500 Mg Tab 500 Mg PO BID Multiple Vitamin 1 Tab 1 Tab PO DAILY Review of Systems ROS Limitations: Poor Historian Physical Exam Narrative GENERAL: Awake and alert. He does not appear to be in any distress. SKIN: warm/dry. Normal color. HEAD: Normocephalic. Atraumatic. EYES: Pupils equal and round. No scleral icterus. No injection or drainage. ENT: No nasal bleeding or discharge. Mucous membranes pink and moist. NECK: Trachea midline. Full range of motion without pain.. He has a sutured surgical scar in the suprasternal notch compatible with previous tracheostomy. CARDIOVASCULAR: Regular rate and rhythm. Heart sounds are normal. RESPIRATORY: No accessory muscle use. Clear to auscultation. Breath sounds equal bilaterally. GASTROINTESTINAL: Abdomen soft. Nontender. Bowel sounds present. Nondistended. : Normal male. Wang catheter has been inserted and is draining cloudy urine with particulate matter in the urine. MUSCULOSKELETAL: No obvious deformities. NEUROLOGICAL: Awake and alert. No obvious cranial nerve deficits. Motor grossly within normal limits. Normal speech. PSYCHIATRIC: Appropriate mood and affect; insight and judgment normal. Data Data Last Documented VS Vital Signs Date Time Temp Pulse Resp B/P (MAP) Pulse Ox O2 Delivery O2 Flow Rate FiO2 10/26/17 17:00 86 18 117/67 (84) 98 Room Air 10/26/17 16:00 3.00 10/26/17 14:22 98.0 Orders Orders Electrocardiogram (10/26/17 ) Sepsis Workup Initiated (10/26/17 ) Complete Blood Count With Diff (10/26/17 14:25) Comprehensive Metabolic Panel (10/26/17 14:25) Lactic Acid Sepsis Protocol (10/26/17 14:25) Urinalysis - C+S If Indicated (10/26/17 14:25) Blood Culture (10/26/17 14:25) Chest, Single Ap (10/26/17 14:25) Blood Glucose (10/26/17 14:25) Ecg Monitoring (10/26/17 14:25) Iv Access Insert/Monitor (10/26/17 14:25) Cath For Specimen (10/26/17 14:25) Oximetry (10/26/17 14:25) Oxygen Administration (10/26/17 14:25) Urine Culture (10/26/17 15:00) Ceftriaxone Inj (Rocephin Inj) (10/26/17 16:00) Consult Nephrology (10/26/17 ) Insulin Human Regular Inj (Novolin R Inj (10/26/17 18:15) Dextrose 50% In Joseluis (Syr) Inj (D50w (Syr (10/26/17 18:15) Calcium Chloride Inj (Calcium Chloride I (10/26/17 18:15) Sodium Bicarbonate 8.4% Inj (Sodium Bica (10/26/17 18:15) Sodium Polysty Sulfate Liq (Kayexalate L (10/26/17 18:15) Electrocardiogram (10/26/17 ) (Hub Use Only)Inp Phy Cons/Ref (10/26/17 ) Labs Laboratory Tests Test 10/26/17 15:00 10/26/17 15:15 10/26/17 17:00 Urine Color YELLOW Urine Turbidity HAZY Urine pH 5.5 Urine Specific [place] 1.018 Urine Protein 100 mg/dL Urine Glucose (UA) NEG mg/dL Urine Ketones NEG mg/dL Urine Occult Blood MOD Urine Nitrite NEG Urine Bilirubin NEG Urine Urobilinogen 2.0 MG/DL Urine Leukocyte Esterase LARGE Urine RBC 32 /hpf Urine WBC /hpf Urine WBC Clumps MANY Urine Squamous Epithelial Cells <1 /hpf Urine Bacteria MANY /hpf Microscopic Urinalysis Comment CATH-CULTURE IND White Blood Count 4.8 TH/MM3 Red Blood Count 3.50 MIL/MM3 Hemoglobin 9.2 GM/DL Hematocrit 30.4 % Mean Corpuscular Volume 86.8 FL Mean Corpuscular Hemoglobin 26.2 PG Mean Corpuscular Hemoglobin Concent 30.2 % Red Cell Distribution Width 20.7 % Platelet Count 158 TH/MM3 Mean Platelet Volume 7.8 FL Neutrophils (%) (Auto) 80.7 % Lymphocytes (%) (Auto) 5.2 % Monocytes (%) (Auto) 13.7 % Eosinophils (%) (Auto) 0.3 % Basophils (%) (Auto) 0.1 % Neutrophils # (Auto) 3.9 TH/MM3 Lymphocytes # (Auto) 0.2 TH/MM3 Monocytes # (Auto) 0.7 TH/MM3 Eosinophils # (Auto) 0.0 TH/MM3 Basophils # (Auto) 0.0 TH/MM3 CBC Comment AUTO DIFF Differential Comment AUTO DIFF CONFIRMED Lactic Acid Level 1.3 mmol/L Blood Urea Nitrogen 65 MG/DL Creatinine 5.08 MG/DL Random Glucose 88 MG/DL Total Protein 8.7 GM/DL Albumin 3.1 GM/DL Calcium Level 8.0 MG/DL Alkaline Phosphatase 78 U/L Aspartate Amino Transf (AST/SGOT) 33 U/L Alanine Aminotransferase (ALT/SGPT) 29 U/L Total Bilirubin 0.5 MG/DL Sodium Level 135 MEQ/L Potassium Level 7.3 MEQ/L Chloride Level 102 MEQ/L Carbon Dioxide Level 23.5 MEQ/L Anion Gap 10 MEQ/L Estimat Glomerular Filtration Rate 14 ML/MIN MDM Medical Decision Making Medical Screen Exam Complete: Yes Emergency Medical Condition: Yes Interpretation(s) EKG shows a sinus rhythm with a left axis deviation and an intraventricular conduction delay. I do not see any acute ischemic changes. There are no peak T waves. Differential Diagnosis Differential diagnosis of dyspnea includes but is not limited to congestive heart failure, pneumonia, wheezing, pneumothorax, pulmonary embolism Narrative Course This patient presents to us from a long-term with a complaint of just not feeling well. He has some significant underlying medical problems including AIDS, hepatitis B, hepatitis C. I have initiated a septic workup. Nursing staff was unable to obtain IV access. They were not able to even get the patient to cooperate with him for a straight stick to obtain labs. Last Impressions Chest X-Ray 10/26/17 7671 Signed Impressions: Service Date/Time: Saturday, October 26, 2017 14:31 - CONCLUSION: Prominent cardiac silhouette. Pericardial effusion cannot be entirely excluded. No failure Sung Phillips MD FACR CBC Diagram 10/26/17 15:15 BMP Diagram 10/26/17 17:00 Total Protein 8.7 H, Albumin 3.1 L, Calcium Level 8.0 L, Alkaline Phosphatase 78 , Aspartate Amino Transf (AST/SGOT) 33, Alanine Aminotransferase (ALT/SGPT) 29, Total Bilirubin 0.5 The lab called to inform me that the potassium has already been rechecked on a fresh sample. The high potassium level is confirmed. I have ordered insulin/D50, calcium, bicarb, Kayexalate. I have also consulted Dr. Ga. He would like for the patient's hyperkalemia to initially be treated medically. Repeat his electrolytes at about 9 PM. Admit to the [facility]. UA>> large leukocyte esterase, innumerable WBCs, many WBC clumps, many bacteria. He was given Rocephin 1 g IV for this. Critical Care Narrative Aggregate critical care time was 45 minutes. Time to perform other separately billable procedures was not included in the critical care time. My time did not include minutes spent treating any other patients simultaneously or on activities that did not directly contribute to the patient's treatment. The services I provided to this patient were to treat and/or prevent clinically significant deterioration due to hyperkalemia I provided critical care services requiring my management, as noted below: Chart data review, documentation time, medication orders and management, vital sign assessments/reviewing monitor data, ordering and reviewing lab tests, ordering and interpreting/reviewing x-rays and diagnostic studies, care of the patient and discussion of the patient with the admitting physicians Procedures Procedure Narrative EJ IV ACCESS: The right side of his neck was prepped with ChloraPrep. An 18-gauge Angiocath was then inserted into the right external jugular vein. IV access was successful on one attempt. Diagnosis Primary Impression: Hyperkalemia Additional Impression: UTI (lower urinary tract infection) Admitting Information Admitting Physician Requests: Admit Condition: Ramila Arnett MD October 26, 2017 15:39
[2017-10-26] MEDS ORDERED: cefTRIAXone INJ 1,000 MG in SODIUM CHLORIDE 0.9% INJ 100 ML IV ONE (16:00)
[2017-10-26 16:29] LABS: AUTOMATED NEUTROPHIL # 3.9 TH/MM3 (1.8-7.7); BASOPHIL % 0.1 % (0.0-2.0); EOSINOPHIL % 0.3 % (0.0-4.0); HEMATOCRIT 30.4 % (39.0-51.0); HEMOGLOBIN 9.2 GM/DL (13.0-17.0); LYMPH % 5.2 % (9.0-44.0); LYMPHOCYTE # 0.2 TH/MM3 (1.0-4.8); MEAN CELL VOLUME 86.8 FL (80.0-100.0); MEAN CORPUSCULAR HEMOGLOBIN 26.2 PG (27.0-34.0); MEAN CORPUSCULAR HGB CONC 30.2 % (32.0-36.0); MEAN PLATELET VOLUME 7.8 FL (7.0-11.0); MONO % 13.7 % (0.0-8.0); MONOCYTE # 0.7 TH/MM3 (0-0.9); NEUT % 80.7 % (16.0-70.0); PLATELET COUNT 158 TH/MM3 (150-450); RED CELL DISTRIBUTION WIDTH 20.7 % (11.6-17.2); WHITE BLOOD COUNT 4.8 TH/MM3 (4.0-11.0)
--- NOTE | 2017-10-26 17:57 | EKG ---
Date Performed: 10/26/2017 Time Performed: 14:24:33 PTAGE: 56 years EKG: Sinus rhythm WITH FIRST DEGREE AV BLOCK MARKED LEFT AXIS DEVIATION INTRAVENTRICULAR CONDUCTION DELAY ABNORMAL ECG Since the PREVIOUS TRACING , no significant change noted DOCTOR: Sudeep Chavez Interpretating Date/Time 10/26/2017 17:56:51
[2017-10-26 18:06] LABS: ALBUMIN 3.1 GM/DL (3.4-5.0); ALKALINE PHOSPHATASE 78 U/L (45-117); ALT (GPT) 29 U/L (12-78); AST (GOT) 33 U/L (15-37); BICARBONATE 23.5 MEQ/L (21.0-32.0); BLOOD UREA NITROGEN 65 MG/DL (7-18); CHLORIDE 102 MEQ/L (98-107); CREATININE 5.08 MG/DL (0.60-1.30); GLOMERULAR FILTRATION RATE 14 ML/MIN (>89); GLUCOSE,RANDOM 88 MG/DL (74-106); SODIUM (NA) 135 MEQ/L (136-145); TOTAL BILIRUBIN ADULT 0.5 MG/DL (0.2-1.0); TOTAL PROTEIN 8.7 GM/DL (6.4-8.2)
[2017-10-26] MEDS ORDERED: CALCIUM CHLORIDE 10% SOLN 1 GRAM/10 ML SYR IV PUSH ONE (18:15)
[2017-10-26] MEDS ORDERED: SODIUM POLYSTYRENE SULFONATE SUSP 15 GM/60 ML CUP PO ONE ×3 (18:15→23:30)
[2017-10-26] MEDS ORDERED: SODIUM BICARBONATE 8.4% INJ 50 MEQ/50 ML SYR IV PUSH ONE (18:15)
[2017-10-26] MEDS ORDERED: INSULIN HUMAN REGULAR 1,000 UNITS/10 ML VIAL IV PUSH ONE ×2 (18:15→23:30)
[2017-10-26] MEDS ORDERED: DEXTROSE 50% IN WATER 50 ML SYRINGE IV PUSH ONE (18:15)
[2017-10-26] MEDS ORDERED: Vancomycin Consult Pharmacy 1 EA OTHER SCH (20:00)
--- NOTE | 2017-10-26 20:38 | RADRPT ---
EXAM DATE/TIME: 10/26/2017 20:06 [facility] COMPARISON: US KIDNEY/RENAL/BLADDER, March 22, 2017, 13:22. INDICATIONS : Elevated labs. MEDICAL HISTORY : Hypertension. Gastroesophageal reflux disease. Myocardial infarction. Thyroid disease. Renal disease. COPD. HIV/AIDS. Hepatitis. SURGICAL HISTORY : RT femoral graft. ENCOUNTER: Subsequent ACUITY: 1 day PAIN SCORE: Nonresponsive. LOCATION: Bilateral flank MEASUREMENTS: RIGHT KIDNEY: 7.9 x 4.4 x 5.6 cm LEFT KIDNEY: 8.1 x 3.8 x 4.3 cm FINDINGS: RIGHT KIDNEY: There is increased echogenicity of the renal parenchyma. There is no evidence of hydronephrosis. No s ignificant change compared to the prior study. LEFT KIDNEY: There is increased echogenicity of pleural-parenchymal. No hydronephrosis. There is a cyst along the upper pole measuring 1.1 cm. No significant change compared to the prior study. BLADDER: Wang catheter in the bladder. CONCLUSION: 1. There is some increased echogenicity of the renal parenchyma suggestive of chronic medical renal d isease. 2. No evidence of hydronephrosis. 3. Small 1.1 cm cyst upper pole left kidney. Giuseppe Street MD on October 26, 2017 at 20:34 Board Certified Radiologist. This report was verified electronically.
[2017-10-26] MEDS ORDERED: VANCOMYCIN INJ 1,500 MG in SODIUM CHLORID 0.9% 500 ML INJ 500 ML IV ONE (22:00)
[2017-10-26] MEDS: PIPERACIL-TAZO 2.25 GM PREMIX 50 ML IV SCH (22:07)
[2017-10-26] MEDS: SODIUM CHLOR 0.9% 1000 ML INJ 1,000 ML IV SCH (22:22)
--- NOTE | 2017-10-26 22:27 | HHI.HP ---
HPI Service Critical Care Medicine Primary Care Physician No Primary Care Physician Admission Diagnosis hyperkalemia, UTI, acute on chronic renal failure Diagnosis: Chief Complaint: altered mental status Travel History International Travel<30 Days: No Contact w/Intl Traveler <30 Da: No Traveled to Known Affected Are: No History of Present Illness This is a 56-year-old male who presents to the emergency department for altered mental status and not feeling well. The patient is quite altered and cannot provide any reliable history, and is only mumbling incoherently. He is protecting his airway and on room air, but cannot provide any additional information. Per the emergency department reports and [facility] reports, he has a history of hepatitis B, hepatitis C, COPD, chronic kidney disease of unknown stage, hypertension, CHF. In the emergency department he was found to have a creatinine of 5.08, BUN 65, potassium 7.3, sodium 135. He is afebrile with a normal white count. He is anemic with a hemoglobin of 9.2. Past visits would suggest his baseline creatinine to be between 2.3 and 3.09. He does have a urinalysis which is significant for pyuria with proteinuria and a large amount of bacteria suggestive of a urinary tract infection. On-call wood heel flap trimmer was contacted due to the hyperkalemia and recommended medical management including insulin, D50, Kayexalate, bicarbonate and serial electrolyte's and recommended against emergent dialysis at this time. No additional information is available from the patient. The patient has been in the ICU for acute renal failure with life-threatening electrolyte abnormalities. Review systems is unobtainable due to his clinical condition. The remainder of the history is obtained from review of the medical record. Review of Systems ROS Limitations: Clinical Condition, Altered Mental Status, Poor Historian Past Family Social History Allergies: Coded Allergies: benazepril (Unverified Allergy, Severe, SWELLING MOUTH ,TONGUE, 03/20/17) captopril (Unverified Allergy, Severe, SWELLING MOUTH ,TONGUE, 03/20/17) enalaprilat (Unverified Allergy, Severe, SWELLING MOUTH ,TONGUE, 03/20/17) fosinopril (Unverified Allergy, Severe, SWELLING MOUTH ,TONGUE, 03/20/17) lisinopril (Unverified Allergy, Severe, SWELLING MOUTH ,TONGUE, 03/20/17) quinapril (Unverified Allergy, Severe, SWELLING MOUTH ,TONGUE, 03/20/17) Past Medical History Patient's past medical history is unobtainable due to his clinical condition. Per chart review: Rheumatoid arthritis HIV Depression Apparently the patient has been told he needs stents and a defibrillator in the past Lymphoma, unknown type Chronic lymphedema A prior history of chemotherapy Coronary artery disease Diabetes COPD Congestive heart failure, unknown type GERD Hepatitis Hypertension Sleep apnea Prior myocardial infarction Past Surgical History Patient's past surgical history is unobtainable due to his clinical condition. Per chart review: Cardiac surgery of some kind Oral surgery, not otherwise specified Graft to the right upper leg Reported Medications Duoneb (Ipratropium-Albuterol Neb) 0.5-2.5 Mg/3 Ml Neb 1 Nebule INH Q6HR NEB Milk of Magnesia Liq (Magnesium Hydroxide) 400 Mg/5 Ml Susp 30 Ml PO DAILY PRN Chlorhexidine Gluconate (Mouth) Liq (Chlorhexidine Gluconate) 0.12% Soln 15 Ml SWISH-SPIT BID Basaglar Kwikpen (Insulin Glargine) 100 Unit/Ml Pen 25 Units SQ HS Gabapentin 100 Mg Cap 200 Mg PO Q8HR Levothyroxine (Levothyroxine Sodium) 50 Mcg Tab 50 Mcg PO DAILY Norvir (Ritonavir) 100 Mg Cap 100 Mg PO DAILY Famotidine 20 Mg Tab 20 Mg PO DAILY Bumetanide 1 Mg Tab 1 Mg PO DAILY Spiriva Handihaler (Tiotropium Inh) 18 Mcg Cap 18 Mcg INH DAILY 1 capsule = 18 mcg Intelence (Etravirine) 200 Mg Tab 200 Mg PO BID Isentress (Raltegravir) 400 Mg Tab 400 Mg PO BID Floris (Hydrocodone-Acetaminophen) 5 Mg-325 Mg Tab 1 Tab PO Q4H PRN Ventolin Hfa 18 GM Inh (Albuterol Sulfate) 90 Mcg/Act Aer 1 Puff INH Q6H PRN Dilaudid (Hydromorphone HCl) 2 Mg Tab 2 Mg PO Q6H PRN Cipro (Ciprofloxacin HCl) 500 Mg Tab 500 Mg PO Q12HR Seroquel (Quetiapine Fumarate) 25 Mg Tab 25 Mg PO BID Ascorbic Acid 500 Mg Tab 500 Mg PO BID Multiple Vitamin 1 Tab 1 Tab PO DAILY Active Ordered Medications See MAR Family History unobtainable secondary to the clinical condition of the patient. Social History Social history is unobtainable due to his clinical condition. Per chart review: Negative for alcohol or tobacco. Positive for cocaine and marijuana. Physical Exam Vital Signs Vital Signs Date Time Temp Pulse Resp B/P (MAP) Pulse Ox O2 Delivery O2 Flow Rate FiO2 10/26/17 20:58 97.6 91 21 136/78 (97) 100 10/26/17 20:01 88 101/59 (73) 97 Nasal Cannula 10/26/17 18:51 89 14 144/76 (98) 99 Nasal Cannula 3.00 10/26/17 17:00 86 18 117/67 (84) 98 Room Air 10/26/17 16:00 90 19 123/62 (82) 99 Nasal Cannula 3.00 10/26/17 15:00 86 18 104/65 (78) 98 Nasal Cannula 3.00 10/26/17 14:25 87 22 92 Room Air 10/26/17 14:22 98.0 87 18 104/65 (78) 92 10/26/17 14:15 95 Nasal Cannula 3.00 10/26/17 14:15 92 Room Air Physical Exam GENERAL: Disheveled middle-aged male, lying in bed, awake but not interactive HEENT: Normocephalic. Atraumatic. Pupils equal, round, reactive, conjugate. Mucous membranes are moist NECK: Trachea is midline. There is no JVD. CHEST: Equal chest rise. Room air. CARDIOVASCULAR: Normal rate, regular rhythm. Sinus by telemetry ABDOMEN: Soft, nontender, nondistended. No guarding. MUSCULOSKELETAL: Pulses 2+. The right lower extremity has 2+ edema. The left lower extremity does not have edema. No edema of the upper extremities NEUROLOGICAL: RASS -1. Oriented to person only. Follows very basic simple commands. Moves all extremities spontaneously. No focal deficits. Laboratory Laboratory Tests Test 10/26/17 15:00 10/26/17 15:15 10/26/17 17:00 Urine Color YELLOW Urine Turbidity HAZY Urine pH 5.5 Urine Specific [place] 1.018 Urine Protein 100 Urine Glucose (UA) NEG Urine Ketones NEG Urine Occult Blood MOD Urine Nitrite NEG Urine Bilirubin NEG Urine Urobilinogen 2.0 Urine Leukocyte Esterase LARGE Urine RBC 32 Urine WBC Urine WBC Clumps MANY Urine Squamous Epithelial Cells <1 Urine Bacteria MANY Microscopic Urinalysis Comment CATH-CULTURE IND White Blood Count 4.8 Red Blood Count 3.50 Hemoglobin 9.2 Hematocrit 30.4 Mean Corpuscular Volume 86.8 Mean Corpuscular Hemoglobin 26.2 Mean Corpuscular Hemoglobin Concent 30.2 Red Cell Distribution Width 20.7 Platelet Count 158 Mean Platelet Volume 7.8 Neutrophils (%) (Auto) 80.7 Lymphocytes (%) (Auto) 5.2 Monocytes (%) (Auto) 13.7 Eosinophils (%) (Auto) 0.3 Basophils (%) (Auto) 0.1 Neutrophils # (Auto) 3.9 Lymphocytes # (Auto) 0.2 Monocytes # (Auto) 0.7 Eosinophils # (Auto) 0.0 Basophils # (Auto) 0.0 CBC Comment AUTO DIFF Differential Comment AUTO DIFF CONFIRMED Lactic Acid Level 1.3 Blood Urea Nitrogen 65 Creatinine 5.08 Random Glucose 88 Total Protein 8.7 Albumin 3.1 Calcium Level 8.0 Alkaline Phosphatase 78 Aspartate Amino Transf (AST/SGOT) 33 Alanine Aminotransferase (ALT/SGPT) 29 Total Bilirubin 0.5 Sodium Level 135 Potassium Level 7.3 Chloride Level 102 Carbon Dioxide Level 23.5 Anion Gap 10 Estimat Glomerular Filtration Rate 14 Date/Time Source Procedure Growth Status 10/26/17 15:20 Blood Peripheral Aerobic Blood Culture Pending Received 10/26/17 15:20 Blood Peripheral Anaerobic Blood Culture Pending Received 10/26/17 15:00 Urine Catheterized Urine Urine Culture Pending Worksheet Result Diagram: 10/26/17 1515 10/26/17 1700 Imaging Last Impressions Chest X-Ray 10/26/17 1425 Signed Impressions: Service Date/Time: Thursday, October 26, 2017 14:31 - CONCLUSION: Prominent cardiac silhouette. Pericardial effusion cannot be entirely excluded. No failure Sung Phillips MD FACR Renal Ultrasound 10/26/17 0000 Signed Impressions: Service Date/Time: Thursday, October 26, 2017 20:06 - CONCLUSION: 1. There is some increased echogenicity of the renal parenchyma suggestive of chronic medical renal disease. 2. No evidence of hydronephrosis. 3. Small 1.1 cm cyst upper pole left kidney. Giuseppe Street MD Septic Shock Reassessment Septic shock perfusion: reassessment completed Caprini VTE Risk Assessment Caprini VTE Risk Assessment: Mod/High Risk (score >= 2) Caprini Risk Assessment Model Point Value = 1 Point Value = 2 Point Value = 3 Point Value = 5 Age 41-60 Minor surgery BMI > 25 kg/m2 Swollen legs Varicose veins or History of unexplained or recurrent spontaneous Oral contraceptives or hormone replacement Sepsis (< 1 month) Serious lung disease, including pneumonia (< 1 month) Abnormal pulmonary function Acute myocardial infarction Congestive heart failure (< 1 month) History of inflammatory bowel disease Medical patient at bed rest Age 61-74 Arthroscopic surgery Major open surgery (> 45 min) Laparoscopic surgery (> 45 min) Malignancy Confined to bed (> 72 hours) Immobilizing plaster cast Central venous access Age >= 75 History of VTE Family history of VTE Factor V Leiden Prothrombin [id number] Lupus anticoagulant Anticardiolipin antibodies Elevated serum homocysteine Heparin-induced thrombocytopenia Other congenital or acquired thrombophilia Stroke (< 1 month) Elective arthroplasty Hip, pelvis, or leg fracture Acute spinal cord injury (< 1 month) Prophylaxis Regimen Total Risk Factor Score Risk Level Prophylaxis Regimen 0-1 Low Early ambulation 2 Moderate Order ONE of the following: *Sequential Compression Device (SCD) *Heparin 5000 units SQ BID 3-4 Higher Order ONE of the following medications: *Heparin 5000 units SQ TID *Enoxaparin/Lovenox 40 mg SQ daily (WT < 150 kg, CrCl > 30 mL/min) *Enoxaparin/Lovenox 30 mg SQ daily (WT < 150 kg, CrCl > 10-29 mL/min) *Enoxaparin/Lovenox 30 mg SQ BID (WT < 150 kg, CrCl > 30 mL/min) AND/OR *Sequential Compression Device (SCD) 5 or more Highest Order ONE of the following medications: *Heparin 5000 units SQ TID (Preferred with Epidurals) *Enoxaparin/Lovenox 40 mg SQ daily (WT < 150 kg, CrCl > 30 mL/min) *Enoxaparin/Lovenox 30 mg SQ daily (WT < 150 kg, CrCl > 10-29 mL/min) *Enoxaparin/Lovenox 30 mg SQ BID (WT < 150 kg, CrCl > 30 mL/min) AND *Sequential Compression Device (SCD) Assessment and Plan Assessment and Plan Assessment: 56-year-old male with multiple chronic medical problems who presents with acute encephalopathy likely secondary to uremic encephalopathy and acute worsening kidney injury superimposed on chronic renal insufficiency of unknown stage. This is complicated by a complicated urinary tract infection which may be acute pyelonephritis. Agree with admitting the ICU. Agree with medical management for his acute kidney injury, although would have a low threshold to initiate renal replacement therapy if he continued to worsen. Very critically ill with life-threatening electrolyte abnormalities as well as new and life-threatening renal failure. Plan by systems: Neurologic: Acute metabolic encephalopathy Uremic encephalopathy History of illicit substance use Frequent neurochecks Avoid long-acting sedatives Trend BUN Send urine drug screen Follow-up ethanol level, salicylate level, acetaminophen level Respiratory: Incentive spirometer to bedside Wean oxygen by nasal cannula for goal SPO2 greater than 92% Cardiovascular: Monitor on telemetry, particularly with hyperkalemia and concern for EKG changes. No EKG changes present on admission EKG suggestive of cardiac dysrhythmia secondary to hyperkalemia Renal: Severe acute kidney injury superimposed on chronic renal insufficiency, unknown stage - likely secondary to urinary tract infection Urinary tract infection, possible acute pyelonephritis -- Strict I/Os Place Wang catheter Serial electrolytes Renal ultrasound 10/26: Negative for acute hydronephrosis Nephrology: Dr. Ga consulted FEN/GI: Severe life-threatening hyperkalemia Status post insulin, D50, bicarb, Kayexalate Trend potassium N.p.o. altered Swallow evaluation Daily BMP Heme/ID: Anemia, unknown cause, likely secondary to chronic disease Urinary tract infection, possible acute pyelonephritis Does not meet transfusion triggers at this time Start vancomycin with pharmacy dosing, Start Zosyn, renally dosed Patient is healthcare associated from group home facility we will cover with broad-spectrum antibiotics until culture data is returned Blood cultures, urine culture Endocrine: Hyperglycemia of critical illness -- SSI Prophylaxis: GI Prophylaxis Pepcid DVT Prophylaxis -- SCDs Subcu heparin Lines: Peripheral IVs Dispo: Admit to ICU. Critically ill. This patient remains critically ill with one or more organ systems which are or may become a threat to life. I have spent in excess of 51 minutes discontinuously in the care and management of this patient. This time is exclusive of procedures, and includes, but is not limited to, evaluation of the patient, review of the medical record, discussions with family, consultants, nursing staff, or respiratory therapy, and documentation in the medical record. Yefri Talavera MD October 26, 2017 22:27
[2017-10-26] MEDS ORDERED: SODIUM CHLORIDE 0.9% FLUSH 10 ML FLUSH IV FLUSH PRN (22:30)
[2017-10-26] MEDS ORDERED: NURSING INFORMATION XX SCH (22:30)
[2017-10-26] MEDS ORDERED: CHLORHEXIDINE GLUCONATE 2 % 1 PACK (2 CLOTHS) TOP PRN (22:30)
[2017-10-26 22:48] LABS: BICARBONATE 25.4 MEQ/L (21.0-32.0); CALCIUM 8.5 MG/DL (8.5-10.1); CREATININE 5.29 MG/DL (0.60-1.30); MAGNESIUM 2.2 MG/DL (1.5-2.5); PHOSPHORUS 8.2 MG/DL (2.5-4.9)
[2017-10-26 23:16] LABS: ACETAMINOPHEN LESS THAN 2.0 MCG/ML (10.0-30.0)
[2017-10-26] MEDS ORDERED: SODIUM POLYSTYRENE SULFONATE SUSP 15 GM/60 ML CUP RECTAL ONE (23:30)
[2017-10-26] MEDS ORDERED: CALCIUM GLUCONATE INJ 2 GM in SODIUM CHLORIDE 0.9% INJ 100 ML IV ONE (23:30)
[2017-10-26] MEDS ORDERED: DEXTROSE 50% IN WATER 50 ML VIAL(D50) IV PUSH ONE (23:30)
[2017-10-26 23:31] LABS: CREATININE, RANDOM URINE 207.3 MG/DL
[2017-10-26] MEDS: HEPARIN SODIUM - SQ 10,000 UNITS/ML VIAL SQ SCH (23:36)
[2017-10-26] MEDS: INSULIN NovoLIN REGULAR SUPPLEMENTAL SCALE SQ SCH (23:41)
[2017-10-27] VITALS (16 sets, daily range): BP systolic 103–143; BP diastolic 55–84; PULSE 71–100; RESP 15–18; TEMP 97.6–98.1; O2SAT 98–100
[2017-10-27] MEDS: CHLORHEXIDINE GLUCONATE 2 % 1 PACK (2 CLOTHS) TOP SCH (04:00)
[2017-10-27 04:26] LABS: HEMATOCRIT 30.6 % (39.0-51.0); HEMOGLOBIN 9.3 GM/DL (13.0-17.0); MEAN CELL VOLUME 86.8 FL (80.0-100.0); MEAN CORPUSCULAR HEMOGLOBIN 26.4 PG (27.0-34.0); MEAN CORPUSCULAR HGB CONC 30.4 % (32.0-36.0); MEAN PLATELET VOLUME 7.8 FL (7.0-11.0); PLATELET COUNT 148 TH/MM3 (150-450); RED BLOOD COUNT 3.52 MIL/MM3 (4.50-5.90); RED CELL DISTRIBUTION WIDTH 20.5 % (11.6-17.2); WHITE BLOOD COUNT 7.4 TH/MM3 (4.0-11.0)
[2017-10-27] MEDS: PIPERACIL-TAZO 2.25 GM PREMIX 50 ML IV SCH ×3 (04:47→20:13)
[2017-10-27 04:56] LABS: BICARBONATE 26.9 MEQ/L (21.0-32.0); CALCIUM 7.9 MG/DL (8.5-10.1); CREATININE 5.23 MG/DL (0.60-1.30); MAGNESIUM 2.1 MG/DL (1.5-2.5); PHOSPHORUS 7.5 MG/DL (2.5-4.9)
[2017-10-27] MEDS: INSULIN NovoLIN REGULAR SUPPLEMENTAL SCALE SQ SCH ×4 (06:00→23:52)
[2017-10-27] MEDS ORDERED: DEXTROSE 50% IN WATER 50 ML SYRINGE ONE (06:07)
[2017-10-27] MEDS: DEXTROSE 50% IN WATER 50 ML VIAL(D50) IV PUSH PRN ×2 (06:13→06:37)
[2017-10-27] MEDS ORDERED: FAMOTIDINE 20 MG/2 ML VIAL IV PUSH SCH (09:00)
[2017-10-27] MEDS ORDERED: PHARMACY ORDERED LAB ONE (10:00)
[2017-10-27] MEDS: SODIUM CHLOR 0.9% 1000 ML INJ 1,000 ML IV SCH (10:17)
[2017-10-27] MEDS: HEPARIN SODIUM - SQ 10,000 UNITS/ML VIAL SQ SCH ×2 (10:30→20:13)
--- NOTE | 2017-10-27 10:44 | MB ---
cc: Rohan Ga MD DATE: 10/27/2017 REASON FOR CONSULTATION: Elevated BUN and creatinine and hyperkalemia. HISTORY OF PRESENT ILLNESS: This is a 56-year-old male with a past medical history of hypertension, history of HIV, chronic lymphedema of the legs, diabetes mellitus, sleep apnea, ischemic heart disease, was brought to the hospital with altered mental status and not feeling well. I was called to see the patient because of elevated BUN and creatinine and high potassium. The patient has known history of chronic kidney disease and patient was seen by me when he was here in March last year. At that time, he had creatinine in the range of 2.3-3.0 and he was discharged with a creatinine of 2.5 and now he came with a creatinine of 5.0 and also potassium of 7.3. Potassium improved slightly, but is still elevated of 6.8. He does not have any acidosis. The patient has also respiratory failure and he is currently on BiPAP. The patient is not able to give any history. He is quite confused and not following any commands. Most of the history was taken from patient's chart. The patient was also found to have urinary tract infection and started on antibiotics. PAST MEDICAL HISTORY: Hypertension, history of HIV, diabetes mellitus, chronic kidney disease, ischemic heart disease, congestive heart failure, sleep apnea, hepatitis. PAST SURGICAL HISTORY: Patient had left thigh biopsy, AICD placement and rectal surgery. REVIEW OF SYSTEMS: Cannot be taken since the patient is confused and not responding much. He is currently on BiPAP. 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 He recently moved here last year. He has a history of past smoking. There is no history of heavy alcoholism. FAMILY HISTORY: Not available. ALLERGIES: ALLERGIC TO MULTIPLE MEDICATIONS INCLUDING BENAZEPRIL, CAPTOPRIL AND SEEMS LIKE ALL THE JANAE INHIBITORS. MEDICATIONS: Currently, he is on following medications: Normal saline at 84 an hour, received calcium gluconate, Kayexalate, sodium bicarbonate for high potassium. He received 1 dose of vancomycin, on heparin 5000 units subQ q. 12 hours, famotidine 20 mg q. 12 hours, Zosyn 2.25 grams IV q. 8 hours. PHYSICAL EXAMINATION: GENERAL: The patient is quite lethargic, not responding much and currently on BiPAP. VITAL SIGNS: His last blood pressure is 143/70, temperature 98, oxygen saturation on 35%, 100%. HEENT: Pupils are midconstricted. Nonicteric sclerae. Conjunctivae are pale. NECK: Supple. JVD is not elevated. LUNGS: The patient has bilateral decreased air entry with basal rales and scattered wheezing. HEART: S1, S2. Regular rhythm. ABDOMEN: Distended, soft, lax. Bowel sounds positive. EXTREMITIES: He has bilateral lymphedema. LABORATORY DATA: WBC count is 7.4, hemoglobin 9.3, platelet count of 148, neutrophils 80.7%. Sodium 138, potassium 6.8, chloride 103, bicarbonate 26.9, BUN 69, creatinine 5.2, glucose 62, calcium 7.9, phosphorus 7.5, magnesium 2.1. Ammonia level was 41. AST, ALT normal, alkaline phosphatase 78, total protein 8.7, albumin 3.1. INR is 1.1. Toxicology screen was positive for opiates. Acetaminophen was less than 2 and salicylates was 1.8. His alcohol level was less than 3. Urinalysis showing large leukocyte esterase with RBC 32 and innumerable WBC. Urine eosinophil was negative. Urine sodium was 46, creatinine was 207. Imaging study. The patient had chest x-ray done which shows that he has a prominent cardiac silhouette, pericardial effusion cannot be excluded. No failure. Ultrasound of the kidney was done which shows that both kidneys are small in size, the right is 7.9 and the left was 8.1. No evidence of hydronephrosis. There is a small 1.1 cm cyst in the left kidney. ASSESSMENT AND PLAN: 1. Chronic kidney disease with some acute worsening. 2. Severe hyperkalemia. 3. Urinary tract infection. 4. Respiratory failure. 5. Metabolic encephalopathy. 6. Diabetes mellitus. 7. Anemia. 8. History of human immunodeficiency virus disease. The patient has advanced renal failure and his GFR was in the range of 25-31 when he was here last time in March and now he came with a GFR of 14 and potassium is very high. The patient has very small kidneys now and most likely he has progressed to end-stage renal disease. Will need to start him on dialysis. I discussed with biometrics experimentalist and he already has inserted the vas cath and I already called the dialysis nurse. We will proceed with the dialysis. Blood pressure is stable. If his kidney function does not improve, then we need to prepare him for the long-term dialysis. Thank you for the consultation, and I will follow the patient while he is in the hospital. Millicent Ga MD AQJ/TL , 09:58 AM , 10:43 AM
--- NOTE | 2017-10-27 11:46 | PD.PROCEDR ---
Central Line Procedure REASON FOR PROCEDURE Hemodialysis access PROCEDURE PERFORMED Vasc-cath placement: Right femoral vein CONSENT Informed consent for procedure was obtained for the procedure. The risks and benefits of the procedure were discussed to include but limited to bleeding, clot formation, infection, and even . ANESTHESIA Local injection of 1% Lidocaine DESCRIPTION OF THE PROCEDURE The patient was placed in supine, mild Trendelenburg position. The area was exposed and cleansed with ChloraPrep, times two. Large sterile drape was used to cover the patient, with the site exposed, under sterile conditions including cap, face mask, sterile gown, and sterile gloves. On single attempt, the introducer needle was inserted with negative pressure in syringe and venous flash was obtained. The guide wire was then advanced without any restriction and the needle was removed. The dilator was used without any complications. Using Seldinger technique the hemodialysis catheter was advanced over the guide wire to a depth of 24 centimeters. The guide wire was removed. All ports were aspirated with dark venous blood return and flushed easily with sterile saline. All ports were capped. Antibiotic disc was placed around central line at puncture site. The central line was secured to the skin with two interrupted 2.0 silk sutures. The area was bandaged with sterile see-through central line bandage. RADIOLOGICAL DATA Ultrasound guidance was used to locate the right femoral vein. Doppler/color flow was used to confirm venous flow. COMPLICATIONS: No apparent complications ESTIMATED BLOOD LOSS: Less than 1 cc. Jay Harper MD October 27, 2017 11:46
[2017-10-27] MEDS ORDERED: SODIUM CHLOR 0.9% 1000 ML INJ 1,000 ML IV PRN (11:50)
[2017-10-27] MEDS ORDERED: SODIUM CHLOR 0.9% 1000 ML INJ 1,000 ML OTHER PRN ×2 (11:50)
--- NOTE | 2017-10-27 11:58 | HHI.CCPN ---
Subjective Remarks/Hospital Course 10/26: This is a 56-year-old male who presents to the emergency department for altered mental status and not feeling well. The patient is quite altered and cannot provide any reliable history, and is only mumbling incoherently. He is protecting his airway and on room air, but cannot provide any additional information. Per the emergency department reports and [facility] reports, he has a history of hepatitis B, hepatitis C, COPD, chronic kidney disease of unknown stage, hypertension, CHF. In the emergency department he was found to have a creatinine of 5.08, BUN 65, potassium 7.3, sodium 135. He is afebrile with a normal white count. He is anemic with a hemoglobin of 9.2. Past visits would suggest his baseline creatinine to be between 2.3 and 3.09. He does have a urinalysis which is significant for pyuria with proteinuria and a large amount of bacteria suggestive of a urinary tract infection. On-call transportation program director was contacted due to the hyperkalemia and recommended medical management including insulin, D50, Kayexalate, bicarbonate and serial electrolyte's and recommended against emergent dialysis at this time. No additional information is available from the patient. The patient has been in the ICU for acute renal failure with life-threatening electrolyte abnormalities. Review systems is unobtainable due to his clinical condition. The remainder of the history is obtained from review of the medical record. 10/27: Patient seen earlier this a.m., remains lethargic but arousable with periods of agitation. Hemodialysis catheter was placed emergently at bedside and nephrology was consulted for dialysis. Patient is arousable, mumbles words , knows his name but he is not able to provide any history. Urine output is minimal. No bowel movement yet post Kayexalate. ROS: -Unobtainable due to patient's mental status. Objective Vital Signs Date Time Temp Pulse Resp B/P (MAP) Pulse Ox O2 Delivery O2 Flow Rate FiO2 10/27/17 10:00 89 10/27/17 08:20 100 35 10/27/17 08:00 98.1 18 120/71 (87) 10/26/17 22:44 Nasal Cannula 3.00 Intake and Output 10/27/17 10/27/17 10/28/17 08:00 16:00 00:00 Intake Total 735 ml Output Total 200 ml Balance 535 ml Result Diagram: 10/27/17 0339 10/27/17 0339 Other Results Laboratory Tests Test 10/27/17 08:04 Blood Gas Puncture Site ART LINE Blood Gas Patient Temperature 98.6 Blood Gas HCO3 25 mmol/L (22-26) Blood Gas Base Excess -2.7 mmol/L (-2-2) Blood Gas Oxygen Saturation 94 % (90-100) Arterial Blood pH 7.18 (7.380-7.420) Arterial Blood Partial Pressure CO2 69 mmHg (38-42) Arterial Blood Partial Pressure O2 106 mmHg (61-120) Arterial Blood Oxygen Content 11.2 Vol % (12.0-20.0) Arterial Blood Carboxyhemoglobin 2.1 % (0-4) Arterial Blood Methemoglobin 1.4 % (0-2) Blood Gas Hemoglobin 8.3 G/DL (12.0-16.0) Oxygen Delivery Device NASAL CANNULA Blood Gas Liter Flow 5 L/M Imaging Last Impressions Chest X-Ray 10/26/17 1425 Signed Impressions: Service Date/Time: Thursday, October 26, 2017 14:31 - CONCLUSION: Prominent cardiac silhouette. Pericardial effusion cannot be entirely excluded. No failure Sung Phillips MD FACR Renal Ultrasound 10/26/17 0000 Signed Impressions: Service Date/Time: Thursday, October 26, 2017 20:06 - CONCLUSION: 1. There is some increased echogenicity of the renal parenchyma suggestive of chronic medical renal disease. 2. No evidence of hydronephrosis. 3. Small 1.1 cm cyst upper pole left kidney. Giuseppe Street MD Objective Remarks GENERAL: Middle-aged gentleman, ill-appearing, lethargic, arousable HEENT: Normocephalic. Atraumatic. Pupils are equal and reactive, sclerae are anicteric. Dry mucous NECK: Trachea is midline. There is no JVD CHEST: Coarse breath sounds bilateral, no wheezes CARDIOVASCULAR: Regular S1 and S2. No murmurs appreciated. ABDOMEN: Soft, nontender, nondistended. No guarding. Bowel sounds are present. No hepatomegaly or splenomegaly appreciated MUSCULOSKELETAL: 2-3+ lower extremity edema. Pulses are palpable. Chronic venous stasis changes NEUROLOGICAL: Lethargic, arousable, does not follow commands but becomes agitated with stimulation. Moves all extremities. Pupils are equal and reactive A/P Assessment and Plan Assessment: 56-year-old male with multiple chronic medical problems who presents with acute encephalopathy likely secondary to uremic encephalopathy and acute worsening kidney injury superimposed on chronic renal insufficiency of unknown stage. This is complicated by a complicated urinary tract infection which may be acute pyelonephritis. Plan by systems: Neurologic: Acute metabolic encephalopathy Uremic encephalopathy History of illicit substance use Frequent neurochecks Avoid long-acting sedatives Trend BUN Send urine drug screen Follow-up ethanol level, salicylate level, acetaminophen level Respiratory: Acute hypercapnic respiratory failure Initiate BiPAP 18/5/35% Repeat ABG at 12 Cardiovascular: Monitor on telemetry, particularly with hyperkalemia and concern for EKG changes. No EKG changes present on admission EKG suggestive of cardiac dysrhythmia secondary to hyperkalemia Renal: Severe acute kidney injury superimposed on chronic renal insufficiency, unknown stage - likely secondary to urinary tract infection Urinary tract infection, possible acute pyelonephritis Monitor urine output Serial electrolytes Discussed with Dr. Ga, patient will undergo emergent hemodialysis FEN/GI: Severe life-threatening hyperkalemia Received medical management Hemodialysis catheter was placed and patient will undergo emergent HD N.p.o. altered Swallow evaluation Daily BMP Heme/ID: Anemia, unknown cause, likely secondary to chronic disease Urinary tract infection, possible acute pyelonephritis Does not meet transfusion triggers at this time Continue vancomycin and Zosyn Blood cultures, urine culture are pending Endocrine: Hyperglycemia of critical illness Borderline hypoglycemic Start D10 Prophylaxis: GI Prophylaxis Pepcid DVT Prophylaxis -- SCDs Subcu heparin Lines: Peripheral IVs Right femoral HD catheter (10/27) Patient is critically ill with life-threatening hyperkalemia and acute upper Respiratory failure, UTI and he is at very high risk for further deterioration and . I discussed with patient's brother over the phone and I explained to him in detail about patient's condition and he understands and he appreciates our efforts. Jay Harper MD October 27, 2017 11:58
[2017-10-27] MEDS ORDERED: ALBUMIN 25% INJ 100 ML IV PRN (12:00)
[2017-10-27] MEDS: DEXTROSE 10% INJ 1,000 ML IV SCH (12:00)
[2017-10-27] MEDS ORDERED: SODIUM CHLORIDE 0.9% FLUSH 10 ML FLUSH IV FLUSH PRN (12:00)
[2017-10-27] MEDS ORDERED: HEPARIN SODIUM - IV 10,000 UNITS/10 ML VIAL IV FLUSH PRN (12:00)
[2017-10-27] MEDS ORDERED: diphenhydrAMINE HCL 25 MG CAP PO PRN (12:00)
[2017-10-27] MEDS ORDERED: HEPARIN SODIUM - IV 10,000 UNITS/10 ML VIAL PRN (12:00)
[2017-10-27] MEDS ORDERED: GELATIN 12 MM/7 MM FOAM TOP PRN (12:00)
[2017-10-27] MEDS ORDERED: MANNITOL 12.5 GM/50 ML VIAL IV PRN (12:00)
[2017-10-27] MEDS ORDERED: NITROGLYCERIN 0.4 MG SL 25 TABS/BTL SL PRN (12:00)
[2017-10-27] MEDS ORDERED: ACETAMINOPHEN 325 MG TAB PO PRN (12:00)
[2017-10-27] MEDS ORDERED: ONDANSETRON HCL 4 MG/2 ML VIAL IV PUSH PRN (12:00)
[2017-10-27] MEDS ORDERED: EPOETIN ALFA 10,000 UNITS/ML VIAL IV PUSH PRN (12:00)
[2017-10-27] MEDS ORDERED: GENTAMICIN SULFATE 20 MG/2 ML VIAL OTHER PRN (12:00)
[2017-10-27] MEDS: DEXMEDETOMIDINE 200 MCG in NS 48 ML IV PRN ×2 (12:50→20:52)
[2017-10-27] MEDS ORDERED: VANCOMYCIN INJ 1,500 MG in SODIUM CHLORID 0.9% 500 ML INJ 500 ML IV ONE (17:00)
--- NOTE | 2017-10-27 17:28 | EKG ---
Date Performed: 10/26/2017 Time Performed: 18:26:26 PTAGE: 56 years EKG: Sinus rhythm POSSIBLE LEFT ATRIAL ENLARGEMENT MARKED LEFT AXIS DEVIATION LEFT BUNDLE BRANCH BLOCK ABNORMAL ECG PREVIOUS TRACING : 10/26/2017 14.24 Since the previous tracing, no significant change noted DOCTOR: Sudeep Chavez Interpretating Date/Time 10/27/2017 17:27:19
[2017-10-27] MEDS: SODIUM CHLORIDE 0.9% FLUSH 10 ML FLUSH IV FLUSH SCH (20:13)
[2017-10-27] MEDS: FAMOTIDINE 20 MG/2 ML VIAL IV PUSH SCH (20:13)
[2017-10-28] VITALS (16 sets, daily range): BP systolic 101–169; BP diastolic 66–94; PULSE 66–87; RESP 11–15; TEMP 97.6–98.4; O2SAT 100
[2017-10-28] MEDS: CHLORHEXIDINE GLUCONATE 2 % 1 PACK (2 CLOTHS) TOP SCH (04:00)
[2017-10-28] MEDS: PIPERACIL-TAZO 2.25 GM PREMIX 50 ML IV SCH ×3 (04:19→20:16)
[2017-10-28] MEDS ORDERED: MORPHINE SULFATE 2 MG/ML SYRINGE ONE (04:26)
[2017-10-28] MEDS: DEXMEDETOMIDINE 200 MCG in NS 48 ML IV PRN (04:30)
[2017-10-28 04:45] LABS: HEMATOCRIT 25.7 % (39.0-51.0); HEMOGLOBIN 7.9 GM/DL (13.0-17.0); MEAN CELL VOLUME 85.5 FL (80.0-100.0); MEAN CORPUSCULAR HEMOGLOBIN 26.3 PG (27.0-34.0); MEAN CORPUSCULAR HGB CONC 30.7 % (32.0-36.0); MEAN PLATELET VOLUME 7.3 FL (7.0-11.0); PLATELET COUNT 127 TH/MM3 (150-450); RED BLOOD COUNT 3.01 MIL/MM3 (4.50-5.90); RED CELL DISTRIBUTION WIDTH 20.5 % (11.6-17.2); WHITE BLOOD COUNT 4.7 TH/MM3 (4.0-11.0)
[2017-10-28] MEDS ORDERED: MORPHINE SULFATE 4 MG/ML INJ IV ONE (04:45)
[2017-10-28 05:15] LABS: BICARBONATE 26.4 MEQ/L (21.0-32.0); CALCIUM 7.6 MG/DL (8.5-10.1); CREATININE 4.38 MG/DL (0.60-1.30)
[2017-10-28 05:20] LABS: PHOSPHORUS 5.5 MG/DL (2.5-4.9); RANDOM VANCOMYCIN 24.6 COMMENT
[2017-10-28] MEDS: INSULIN NovoLIN REGULAR SUPPLEMENTAL SCALE SQ SCH ×5 (06:00→20:00)
[2017-10-28] MEDS ORDERED: GLUCAGON 1 MG/ML VIAL OTHER PRN (07:45)
[2017-10-28] MEDS ORDERED: DEXTROSE 50% IN WATER 50 ML VIAL(D50) IV PUSH PRN (07:45)
--- NOTE | 2017-10-28 07:53 | HHI.CCPN ---
Subjective Remarks/Hospital Course 10/26: This is a 56-year-old male who presents to the emergency department for altered mental status and not feeling well. The patient is quite altered and cannot provide any reliable history, and is only mumbling incoherently. He is protecting his airway and on room air, but cannot provide any additional information. Per the emergency department reports and [facility] reports, he has a history of hepatitis B, hepatitis C, COPD, chronic kidney disease of unknown stage, hypertension, CHF. In the emergency department he was found to have a creatinine of 5.08, BUN 65, potassium 7.3, sodium 135. He is afebrile with a normal white count. He is anemic with a hemoglobin of 9.2. Past visits would suggest his baseline creatinine to be between 2.3 and 3.09. He does have a urinalysis which is significant for pyuria with proteinuria and a large amount of bacteria suggestive of a urinary tract infection. On-call beam racker was contacted due to the hyperkalemia and recommended medical management including insulin, D50, Kayexalate, bicarbonate and serial electrolyte's and recommended against emergent dialysis at this time. No additional information is available from the patient. The patient has been in the ICU for acute renal failure with life-threatening electrolyte abnormalities. Review systems is unobtainable due to his clinical condition. The remainder of the history is obtained from review of the medical record. 10/27: Patient seen earlier this a.m., remains lethargic but arousable with periods of agitation. Hemodialysis catheter was placed emergently at bedside and nephrology was consulted for dialysis. Patient is arousable, mumbles words , knows his name but he is not able to provide any history. Urine output is minimal. No bowel movement yet post Kayexalate. ROS: -Unobtainable due to patient's mental status. 10/28 Patient s/p emergent HD yesterday for hyperkalemia K 5.2 this morning from 7.3 on arrival. On BIPAP 01/11 with 30 %FIO2. On Precedex drip for agitation. Objective Vital Signs Date Time Temp Pulse Resp B/P (MAP) Pulse Ox O2 Delivery O2 Flow Rate FiO2 10/28/17 06:00 68 10/28/17 04:00 98.2 15 105/71 (82) 100 10/28/17 03:48 30 10/27/17 20:57 BiPAP 10/26/17 22:44 3.00 Intake and Output 10/28/17 10/28/17 10/29/17 08:00 16:00 00:00 Intake Total 50 ml Output Total 550 ml Balance -500 ml Result Diagram: 10/28/17 0415 10/28/17 0415 Other Results Laboratory Tests Test 10/27/17 08:04 10/27/17 12:45 10/27/17 13:58 10/27/17 15:01 Blood Gas Puncture Site ART LINE RT RADIAL Blood Gas Patient Temperature 98.6 98.6 Blood Gas HCO3 25 mmol/L 27 mmol/L Blood Gas Base Excess -2.7 mmol/L 0.2 mmol/L Blood Gas Oxygen Saturation 94 % 92 % Arterial Blood pH 7.18 7.21 Arterial Blood Partial Pressure CO2 69 mmHg 72 mmHg Arterial Blood Partial Pressure O2 106 mmHg 86 mmHg Arterial Blood Oxygen Content 11.2 Vol % 10.0 Vol % Arterial Blood Carboxyhemoglobin 2.1 % 2.2 % Arterial Blood Methemoglobin 1.4 % 1.4 % Blood Gas Hemoglobin 8.3 G/DL 7.6 G/DL Oxygen Delivery Device NASAL CANNULA [id number] Blood Gas Liter Flow 5 L/M Blood Gas Inspired Oxygen 30 % Random Vancomycin Level 12.6 COMMENT Hepatitis A IgM Antibody NONREACTIVE Hepatitis B Surface Antigen REACTIVE Hepatitis B Core IgM Antibody NONREACTIVE Hepatitis C IgG Antibody NONREACTIVE Test 10/27/17 16:10 10/28/17 04:15 Blood Gas Puncture Site LT RADIAL Blood Gas Patient Temperature 98.6 Blood Gas HCO3 26 mmol/L Blood Gas Base Excess -0.2 mmol/L Blood Gas Oxygen Saturation 95 % Arterial Blood pH 7.27 Arterial Blood Partial Pressure CO2 59 mmHg Arterial Blood Partial Pressure O2 122 mmHg Arterial Blood Oxygen Content 10.9 Vol % Arterial Blood Carboxyhemoglobin 2.2 % Arterial Blood Methemoglobin 1.4 % Blood Gas Hemoglobin 8.0 G/DL Oxygen Delivery Device [id number] Blood Gas Inspired Oxygen 30 % White Blood Count 4.7 TH/MM3 Red Blood Count 3.01 MIL/MM3 Hemoglobin 7.9 GM/DL Hematocrit 25.7 % Mean Corpuscular Volume 85.5 FL Mean Corpuscular Hemoglobin 26.3 PG Mean Corpuscular Hemoglobin Concent 30.7 % Red Cell Distribution Width 20.5 % Platelet Count 127 TH/MM3 Mean Platelet Volume 7.3 FL Blood Urea Nitrogen 60 MG/DL Creatinine 4.38 MG/DL Random Glucose 80 MG/DL Calcium Level 7.6 MG/DL Phosphorus Level 5.5 MG/DL Magnesium Level 2.0 MG/DL Sodium Level 141 MEQ/L Potassium Level 5.2 MEQ/L Chloride Level 105 MEQ/L Carbon Dioxide Level 26.4 MEQ/L Anion Gap 10 MEQ/L Estimat Glomerular Filtration Rate 17 ML/MIN Random Vancomycin Level 24.6 COMMENT Imaging Last Impressions Chest X-Ray 10/26/17 1425 Signed Impressions: Service Date/Time: Thursday, October 26, 2017 14:31 - CONCLUSION: Prominent cardiac silhouette. Pericardial effusion cannot be entirely excluded. No failure Sung Phillips MD FACR Renal Ultrasound 10/26/17 0000 Signed Impressions: Service Date/Time: Thursday, October 26, 2017 20:06 - CONCLUSION: 1. There is some increased echogenicity of the renal parenchyma suggestive of chronic medical renal disease. 2. No evidence of hydronephrosis. 3. Small 1.1 cm cyst upper pole left kidney. Giuseppe Street MD Objective Remarks GENERAL: Middle-aged gentleman, ill-appearing, lethargic, arousable HEENT: Normocephalic. Atraumatic. Pupils are equal and reactive, sclerae are anicteric. Dry mucous NECK: Trachea is midline. There is no JVD CHEST: Coarse breath sounds bilateral, no wheezes CARDIOVASCULAR: Regular S1 and S2. No murmurs appreciated. ABDOMEN: Soft, nontender, nondistended. No guarding. Bowel sounds are present. No hepatomegaly or splenomegaly appreciated MUSCULOSKELETAL: 2-3+ lower extremity edema. Pulses are palpable. Chronic venous stasis changes NEUROLOGICAL: Lethargic, arousable, does not follow commands but becomes agitated with stimulation. Moves all extremities. Pupils are equal and reactive A/P Assessment and Plan Plan by systems: Neurologic: Acute metabolic encephalopathy Uremic encephalopathy History of illicit substance use Frequent neurochecks Avoid long-acting sedatives Wean off Precedex drip UDS + Opiates Respiratory: Acute hypercapnic respiratory failure Continue with oxygen keep sats >92% Bronchodilators, place on solumederol 60mg Q8 NIPPV PRN for resp distress, check ABG Cardiovascular: Monitor HR and BP keep MAP>65mmHg Check 2D echo to eval LV function Renal: Severe acute kidney injury superimposed on chronic renal insufficiency, unknown stage - likely secondary to urinary tract infection Urinary tract infection, possible acute pyelonephritis Monitor renal function, I/O's, avoid nephrotoxins s/p emergent HD yesterday for hyperkalemia, K 5.2 this morning from 7.3 HD per renal. Renal- Dr. Ga Cr: 4.38 today from 5.23 Renal US: There is increased echogenicity of the renal parenchyma suggestive of chronic medical renal disease. No evidence of hydronephrosis. Small 1.1 cm cyst upper pole left kidney. FEN/GI: Speech eval, diet per speech On Pepcid 10mg IV Q12 Heme/ID: Anemia, unknown cause, likely secondary to chronic disease Urinary tract infection, Monitor CBC Continue vancomycin and Zosyn Follow up on Blood cultures, urine culture : ESBL Klen Start Merrem 1gram Q8 (pharmacy to adjust dose per renal function) ID eval. Endocrine: Borderline hypoglycemic Increase D10 70ml/hr SSI with accuchecks Prophylaxis: GI Prophylaxis Pepcid DVT Prophylaxis -- SCDs Subcu heparin Lines: Peripheral IVs Right femoral HD catheter (10/27) Level 3 Anh Macias MD October 28, 2017 07:53
[2017-10-28] MEDS: FAMOTIDINE 20 MG/2 ML VIAL IV PUSH SCH ×2 (08:46→20:17)
[2017-10-28] MEDS: SODIUM CHLORIDE 0.9% FLUSH 10 ML FLUSH IV FLUSH SCH ×2 (08:46→20:16)
[2017-10-28] MEDS: methylPREDNISolone SOD SUCC 125 MG/2 ML VIAL IV SCH ×2 (08:46→18:32)
--- NOTE | 2017-10-28 09:33 | HHI.NPPN ---
Subjective General Problems: Anemia, Edema, Hypertension Renal Failure: Stage V History of Present Illness 56-year-old male with a past medical history of hypertension, history of HIV, chronic lymphedema of the legs, diabetes mellitus, sleep apnea, ischemic heart disease, was brought to the hospital with altered mental status and not feeling well. I was called to see the patient because of elevated BUN and creatinine and high potassium. The patient has known history of chronic kidney disease and patient was seen by me when he was here in March last year. At that time, he had creatinine in the range of 2.3-3.0 and he was discharged with a creatinine of 2.5 and now he came with a creatinine of 5.0 and also potassium of 7.3. Additional Remarks Patient is alert, now with BIPAP, in mild resp. distress, not fully oriented. Review of Systems General General Remarks Limited, as he is confused, and not answering appropriately. Objective Data Data 10/28/17 10/29/17 19:00 07:00 Intake Total 1064 ml Balance 1064 ml Intake IV Total 1064 ml Vital Signs Date Time Temp Pulse Resp B/P (MAP) Pulse Ox O2 Delivery O2 Flow Rate FiO2 10/28/17 06:00 68 10/28/17 04:00 98.2 69 15 105/71 (82) 100 10/28/17 04:00 69 10/28/17 03:48 100 30 10/28/17 02:00 71 10/28/17 00:00 98.4 69 14 101/66 (78) 100 10/28/17 00:00 69 10/27/17 23:24 100 30 10/27/17 22:00 71 10/27/17 20:57 100 30 10/27/17 20:57 100 BiPAP 30 10/27/17 20:00 75 10/27/17 20:00 98.1 75 15 117/84 (95) 99 10/27/17 18:00 89 10/27/17 16:00 89 10/27/17 16:00 98.1 78 18 106/67 (80) 98 10/27/17 14:00 89 10/27/17 12:04 100 35 10/27/17 12:00 89 10/27/17 12:00 98.1 80 18 103/55 (71) 98 10/27/17 10:00 89 -: 10/28/17 0415 10/28/17 0415 Physical Exam General Appearance: Anxious Appearance Remarks On BIPAP and resp. distress. Eyes Eye Exam: Pupils Equal Throat Throat Exam: Oral Mucosa [place] & Moist Pulmonary Resp Exam: Breath Sounds Equal, No Distress, Crackles, Rhonchi, Decreased Bases , Diminished Breath Sounds Cardiology CV Exam: Tachycardia Gastrointestinal/Abdomen GI Exam: Soft, Non-Tender, Bowel Sounds Present, Distended Neurologic Neuro Exam: Alert, Awake Assessment/Plan Assessment Summary: Anemia of CKD, CKD Stage V Electrolyte Assessment: Hyperkalemia Problem List: (1) Stage 5 chronic kidney disease ICD Codes: N18.5 - Chronic kidney disease, stage 5 (2) DM (diabetes mellitus) ICD Codes: E11.9 - DM (diabetes mellitus) Status: Chronic (3) Chronic systolic CHF (congestive heart failure) ICD Codes: I50.22 - Chronic systolic CHF (congestive heart failure) Status: Chronic (4) Hyperkalemia ICD Codes: E87.5 - Hyperkalemia Status: Acute (5) Hypertension ICD Codes: I10 - Hypertension Status: Chronic (6) COPD exacerbation ICD Codes: J44.1 - COPD exacerbation Status: Acute (7) Respiratory distress ICD Codes: R06.00 - Respiratory distress Status: Acute (8) HIV (human immunodeficiency virus infection) ICD Codes: Z21 - HIV (human immunodeficiency virus infection) Status: Chronic (9) PNA (pneumonia) ICD Codes: J18.9 - PNA (pneumonia) Status: Acute (10) Hepatitis C ICD Codes: B19.20 - Hepatitis C Status: Chronic Plan Patient has elevated BUN and Creatinine with high K. Started on HD on 10/27. BP is stable, still has SOB, and K is 5.3. HD again now. Has small size kidneys, most likely will need care home HD. HD now, remove fluid as tolerated. Continue antibiotics. On Epogen for anemia. Millicent Ga MD October 28, 2017 09:33
[2017-10-28] MEDS: HEPARIN SODIUM - SQ 10,000 UNITS/ML VIAL SQ SCH ×2 (12:07→22:35)
[2017-10-28] MEDS: RESP: ALBUTEROL 2.5 MG/IPRATROPIUM 0.5 MG NEB (SCH) NEB ×3 (13:15→21:03)
[2017-10-28] MEDS: DEXTROSE 10% INJ 1,000 ML IV SCH ×2 (14:32→23:35)
[2017-10-28] MEDS: MEROPENEM 1000 MG/NS 100 ML IV SCH ×2 (18:32)
[2017-10-29] VITALS (31 sets, daily range): BP systolic 117–172; BP diastolic 71–98; PULSE 74–117; RESP 11–33; TEMP 97.9–98.9; O2SAT 72–100
[2017-10-29] MEDS: methylPREDNISolone SOD SUCC 125 MG/2 ML VIAL IV SCH ×4 (00:02→23:54)
[2017-10-29] MEDS ORDERED: MORPHINE SULFATE 4 MG/ML INJ IV PUSH ONE (00:45)
[2017-10-29] MEDS: MEROPENEM 1000 MG/NS 100 ML IV SCH ×4 (01:46→10:15)
[2017-10-29] MEDS: CHLORHEXIDINE GLUCONATE 2 % 1 PACK (2 CLOTHS) TOP SCH (04:00)
[2017-10-29] MEDS: INSULIN NovoLIN REGULAR SUPPLEMENTAL SCALE SQ SCH ×7 (04:00→23:54)
[2017-10-29] MEDS: RESP: ALBUTEROL 2.5 MG/IPRATROPIUM 0.5 MG NEB (SCH) NEB ×4 (04:10→21:22)
[2017-10-29] MEDS: PIPERACIL-TAZO 2.25 GM PREMIX 50 ML IV SCH ×2 (04:50→12:03)
[2017-10-29 04:55] LABS: AUTOMATED NEUTROPHIL # 4.4 TH/MM3 (1.8-7.7); BASOPHIL % 0.4 % (0.0-2.0); HEMATOCRIT 28.8 % (39.0-51.0); HEMOGLOBIN 8.9 GM/DL (13.0-17.0); LYMPH % 2.3 % (9.0-44.0); LYMPHOCYTE # 0.1 TH/MM3 (1.0-4.8); MEAN CELL VOLUME 83.6 FL (80.0-100.0); MEAN CORPUSCULAR HGB CONC 31.1 % (32.0-36.0); MEAN PLATELET VOLUME 7.6 FL (7.0-11.0); MONO % 1.7 % (0.0-8.0); MONOCYTE # 0.1 TH/MM3 (0-0.9); NEUT % 95.6 % (16.0-70.0); PLATELET COUNT 147 TH/MM3 (150-450); RED BLOOD COUNT 3.44 MIL/MM3 (4.50-5.90); RED CELL DISTRIBUTION WIDTH 20.6 % (11.6-17.2); WHITE BLOOD COUNT 4.6 TH/MM3 (4.0-11.0)
[2017-10-29 06:15] LABS: BICARBONATE 27.1 MEQ/L (21.0-32.0); CALCIUM 7.4 MG/DL (8.5-10.1); CREATININE 3.59 MG/DL (0.60-1.30); MAGNESIUM 1.9 MG/DL (1.5-2.5); PHOSPHORUS 4.3 MG/DL (2.5-4.9); RANDOM VANCOMYCIN 17.5 COMMENT
[2017-10-29] MEDS: FAMOTIDINE 20 MG/2 ML VIAL IV PUSH SCH ×2 (07:57→20:27)
[2017-10-29] MEDS: SODIUM CHLORIDE 0.9% FLUSH 10 ML FLUSH IV FLUSH SCH ×2 (07:57→20:27)
--- NOTE | 2017-10-29 08:03 | HHI.CCPN ---
Subjective Remarks/Hospital Course 10/26: This is a 56-year-old male who presents to the emergency department for altered mental status and not feeling well. The patient is quite altered and cannot provide any reliable history, and is only mumbling incoherently. He is protecting his airway and on room air, but cannot provide any additional information. Per the emergency department reports and [facility] reports, he has a history of hepatitis B, hepatitis C, COPD, chronic kidney disease of unknown stage, hypertension, CHF. In the emergency department he was found to have a creatinine of 5.08, BUN 65, potassium 7.3, sodium 135. He is afebrile with a normal white count. He is anemic with a hemoglobin of 9.2. Past visits would suggest his baseline creatinine to be between 2.3 and 3.09. He does have a urinalysis which is significant for pyuria with proteinuria and a large amount of bacteria suggestive of a urinary tract infection. On-call dial mounter was contacted due to the hyperkalemia and recommended medical management including insulin, D50, Kayexalate, bicarbonate and serial electrolyte's and recommended against emergent dialysis at this time. No additional information is available from the patient. The patient has been in the ICU for acute renal failure with life-threatening electrolyte abnormalities. Review systems is unobtainable due to his clinical condition. The remainder of the history is obtained from review of the medical record. 10/27: Patient seen earlier this a.m., remains lethargic but arousable with periods of agitation. Hemodialysis catheter was placed emergently at bedside and nephrology was consulted for dialysis. Patient is arousable, mumbles words , knows his name but he is not able to provide any history. Urine output is minimal. No bowel movement yet post Kayexalate. ROS: -Unobtainable due to patient's mental status. 10/28 Patient s/p emergent HD yesterday for hyperkalemia K 5.2 this morning from 7.3 on arrival. On BIPAP 18/5 with 30 %FIO2. On Precedex drip for agitation. 10/29 No events overnight. Off Precedex drip. Remains on BIPAP . Afebrile. Awake and alert. s/p HD yesterday with removal 3L. Objective Vital Signs Date Time Temp Pulse Resp B/P (MAP) Pulse Ox O2 Delivery O2 Flow Rate FiO2 10/29/17 05:00 84 12 143/79 (100) 100 10/29/17 04:12 BiPAP 10/29/17 04:12 30 10/29/17 04:00 98.3 10/26/17 22:44 3.00 Intake and Output 10/29/17 10/29/17 10/30/17 08:00 16:00 00:00 Intake Total 920 ml Output Total 350 ml Balance 570 ml Result Diagram: 10/29/17 0342 10/29/17 0342 Other Results Laboratory Tests Test 10/28/17 08:55 10/29/17 03:42 Blood Gas Puncture Site LT RADIAL Blood Gas Patient Temperature 98.6 Blood Gas HCO3 25 mmol/L Blood Gas Base Excess -1.5 mmol/L Blood Gas Oxygen Saturation 95 % Arterial Blood pH 7.25 Arterial Blood Partial Pressure CO2 58 mmHg Arterial Blood Partial Pressure O2 124 mmHg Arterial Blood Oxygen Content 11.4 Vol % Arterial Blood Carboxyhemoglobin 1.9 % Arterial Blood Methemoglobin 1.4 % Blood Gas Hemoglobin 8.4 G/DL Oxygen Delivery Device BiPAP Blood Gas Ventilator Setting 20/5 Blood Gas Inspired Oxygen 30 % White Blood Count 4.6 TH/MM3 Red Blood Count 3.44 MIL/MM3 Hemoglobin 8.9 GM/DL Hematocrit 28.8 % Mean Corpuscular Volume 83.6 FL Mean Corpuscular Hemoglobin 26.0 PG Mean Corpuscular Hemoglobin Concent 31.1 % Red Cell Distribution Width 20.6 % Platelet Count 147 TH/MM3 Mean Platelet Volume 7.6 FL Neutrophils (%) (Auto) 95.6 % Lymphocytes (%) (Auto) 2.3 % Monocytes (%) (Auto) 1.7 % Eosinophils (%) (Auto) 0.0 % Basophils (%) (Auto) 0.4 % Neutrophils # (Auto) 4.4 TH/MM3 Lymphocytes # (Auto) 0.1 TH/MM3 Monocytes # (Auto) 0.1 TH/MM3 Eosinophils # (Auto) 0.0 TH/MM3 Basophils # (Auto) 0.0 TH/MM3 CBC Comment AUTO DIFF Blood Urea Nitrogen 45 MG/DL Creatinine 3.59 MG/DL Random Glucose 134 MG/DL Calcium Level 7.4 MG/DL Phosphorus Level 4.3 MG/DL Magnesium Level 1.9 MG/DL Sodium Level 139 MEQ/L Potassium Level 4.7 MEQ/L Chloride Level 103 MEQ/L Carbon Dioxide Level 27.1 MEQ/L Anion Gap 9 MEQ/L Estimat Glomerular Filtration Rate 21 ML/MIN Random Vancomycin Level 17.5 COMMENT Imaging Last Impressions Chest X-Ray 10/26/17 1425 Signed Impressions: Service Date/Time: Thursday, October 26, 2017 14:31 - CONCLUSION: Prominent cardiac silhouette. Pericardial effusion cannot be entirely excluded. No failure Sung Phillips MD FACR Renal Ultrasound 10/26/17 0000 Signed Impressions: Service Date/Time: Thursday, October 26, 2017 20:06 - CONCLUSION: 1. There is some increased echogenicity of the renal parenchyma suggestive of chronic medical renal disease. 2. No evidence of hydronephrosis. 3. Small 1.1 cm cyst upper pole left kidney. Giuseppe Street MD Objective Remarks GENERAL: Middle-aged gentleman on BIPAP awake and alert HEENT: Normocephalic. Atraumatic. Pupils are equal and reactive, sclerae are anicteric. Dry mucous NECK: Trachea is midline. There is no JVD CHEST: Coarse breath sounds bilateral, no wheezes CARDIOVASCULAR: Regular S1 and S2. No murmurs appreciated. ABDOMEN: Soft, nontender, nondistended. No guarding. Bowel sounds are present. No hepatomegaly or splenomegaly appreciated MUSCULOSKELETAL: 2-3+ lower extremity edema. Pulses are palpable. Chronic venous stasis changes NEUROLOGICAL: Awake and alert. Moves all extremities. Pupils are equal and reactive A/P Assessment and Plan Plan by systems: Neurologic: Acute metabolic encephalopathy Uremic encephalopathy History of illicit substance use Monitor neuro status Avoid long-acting sedatives UDS + Opiates Respiratory: Acute hypercapnic respiratory failure Continue with oxygen keep sats >92% Bronchodilators, solumederol 60mg Q8 NIPPV PRN for resp distress, check ABG Cardiovascular: Place on Cardizem 60mg Q6 Monitor HR and BP keep MAP>65mmHg Check 2D echo to eval LV function Renal: Severe acute kidney injury superimposed on chronic renal insufficiency, unknown stage - likely secondary to urinary tract infection Urinary tract infection, possible acute pyelonephritis Monitor renal function, I/O's, avoid nephrotoxins s/p emergent HD yesterday with removal 3L. HD per renal. Renal- Dr. Jumani Cr: 3.59 today from 4.38 Renal US: There is increased echogenicity of the renal parenchyma suggestive of chronic medical renal disease. No evidence of hydronephrosis. Small 1.1 cm cyst upper pole left kidney. FEN/GI: Speech eval, diet per speech On Pepcid 10mg IV Q12 Heme/ID: Anemia, unknown cause, likely secondary to chronic disease Urinary tract infection, Monitor CBC Continue vancomycin and Zosyn Follow up on Blood cultures, urine culture : ESBL Kleb Continue Merrem, ID consulted. Endocrine: SSI with accuchecks d/c IVF Prophylaxis: GI Prophylaxis Pepcid DVT Prophylaxis -- SCDs Subcu heparin Lines: Peripheral IVs Right femoral HD catheter (10/27) Level 3 Anh Macias MD October 29, 2017 08:03
[2017-10-29 09:21] LABS: TOTAL PROTEIN 7.4 GM/DL (6.4-8.2)
[2017-10-29 09:23] LABS: CALCIUM-PROTEIN CORRECTED 7.3 MG/DL (8.5-10.1)
[2017-10-29] MEDS: DILTIAZEM HCL 60 MG TAB PO SCH ×3 (10:15→20:27)
[2017-10-29] MEDS: HEPARIN SODIUM - SQ 10,000 UNITS/ML VIAL SQ SCH ×2 (10:17→22:11)
[2017-10-29] MEDS ORDERED: VANCOMYCIN INJ 2,000 MG in SODIUM CHLORID 0.9% 500 ML INJ 500 ML IV ONE (12:00)
--- NOTE | 2017-10-29 16:22 | PD.ID.CON ---
History of Present Illness Service ID Consult Requested By Dr Shell Reason for Consult ESBL in urine Primary Care Physician No Primary Care Physician Diagnoses: History of Present Illness 56 yo male with HIV dz, unable to provide me any meaningful history He is quite confuised and essentially not answering any of my questions chart was reviewed and case was dw RN This is a 56-year-old male who presents to the emergency department for altered mental status and not feeling well. The patient is quite altered and cannot provide any reliable history, and is only mumbling incoherently. He is protecting his airway and on room air, but cannot provide any additional information. Per the emergency department reports and [facility] reports, he has a history of hepatitis B, hepatitis C, COPD, chronic kidney disease of unknown stage, hypertension, CHF. In the emergency department he was found to have a creatinine of 5.08, BUN 65, potassium 7.3, sodium 135. He is afebrile with a normal white count. He has lymphocyte count of 100-200 cw advanced AIDS in the setting of known HIV infection US was negative for hydronephrosis, and parenchimal changes cw medical remanal dz He does have a urinalysis which is significant for pyuria with proteinuria and a large amount of bacteria suggestive of a urinary tract infection. He grew out ESBL + Kleb pneumo from the urine Blood clx so far negative @ 3 days Pt started on dyalisis, remains oliguric (800-900 cc urine/day) Review of Systems ROS Limitations: Altered Mental Status Past Family Social History Allergies: Coded Allergies: benazepril (Unverified Allergy, Severe, SWELLING MOUTH ,TONGUE, 03/20/17) captopril (Unverified Allergy, Severe, SWELLING MOUTH ,TONGUE, 03/20/17) enalaprilat (Unverified Allergy, Severe, SWELLING MOUTH ,TONGUE, 03/20/17) fosinopril (Unverified Allergy, Severe, SWELLING MOUTH ,TONGUE, 03/20/17) lisinopril (Unverified Allergy, Severe, SWELLING MOUTH ,TONGUE, 03/20/17) quinapril (Unverified Allergy, Severe, SWELLING MOUTH ,TONGUE, 03/20/17) Past Medical History Hypertension, history of HIV, diabetes mellitus, chronic kidney disease, ischemic heart disease, congestive heart failure, sleep apnea, hepatitis. Past Surgical History Patient had left thigh biopsy, AICD placement and rectal surgery. Active Ordered Medications Medications where reviewed in EMR Antibiotics Include: meropenem Family History Not available. 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 He has a history of past smoking. There is no history of heavy alcoholism. Physical Exam Vital Signs Vital Signs Date Time Temp Pulse Resp B/P (MAP) Pulse Ox O2 Delivery O2 Flow Rate FiO2 10/29/17 14:00 88 10/29/17 12:00 98.4 89 14 121/74 (90) 100 10/29/17 12:00 89 10/29/17 10:00 91 10/29/17 09:38 100 Nasal Cannula 4.00 10/29/17 09:33 100 10/29/17 08:00 117 10/29/17 08:00 97.9 117 24 170/94 (119) 100 10/29/17 05:00 84 12 143/79 (100) 100 10/29/17 04:12 100 BiPAP 10/29/17 04:12 100 30 10/29/17 04:00 98.3 85 11 136/79 (98) 100 10/29/17 03:00 85 12 138/82 (100) 100 10/29/17 02:01 91 21 142/78 (99) 100 10/29/17 02:00 91 22 100 10/29/17 01:01 100 Ventilator 30 10/29/17 01:01 87 14 142/78 (99) 100 10/29/17 01:00 87 13 100 10/29/17 00:57 100 30 10/29/17 00:51 16 10/29/17 00:00 98.5 86 14 149/87 (107) 100 10/28/17 21:49 16 10/28/17 21:05 100 BiPAP 30 10/28/17 21:04 100 30 10/28/17 21:00 82 14 151/92 (111) 100 10/28/17 20:00 98.4 85 11 148/94 (112) 100 10/28/17 20:00 85 10/28/17 18:00 87 10/28/17 16:00 98.2 85 12 169/88 (115) 100 10/28/17 16:00 85 Physical Exam CONSTITUTIONAL/GENERAL: This is an obese middle aged male patient, in no apparent distress. TUBES/LINES/DRAINS: SKIN: No jaundice, rashes, or lesions. Skin temperature appropriate. Not diaphoretic. HEAD: Atraumatic. Normocephalic. EYES: Pupils equal and round and reactive. Extraocular motions intact. No scleral icterus. No injection or drainage. Fundi not examined. ENT: Hearing grossly normal. Nose without bleeding or purulent drainage. Throat without visible erythema, exudates, masses, or lesions. NECK: Trachea midline. Supple, nontender. No palpable thyroid enlargement or nodularity. CARDIOVASCULAR: Regular rate and rhythm without murmurs, gallops, or rubs. No JVD. Peripheral pulses symmetric. RESPIRATORY/CHEST: Symmetric, unlabored respirations. Clear to auscultation. Breath sounds equal bilaterally. No wheezes, rales, or rhonchi. GASTROINTESTINAL: Abdomen soft, non-tender, nondistended. No hepato-splenomegaly , or palpable masses. No guarding. Bowel sounds present. GENITOURINARY: Without palpable bladder distension. Wang catheter in place with cloudy urine MUSCULOSKELETAL: Extremities without clubbing, cyanosis, Non pitting chronic appearing 3+ edema of RLE and 1+ LLE edema.No cellulitisc changes No joint tenderness or effusion noted. No calf tenderness. No mottling or clubbing. LYMPHATICS: No palpable cervical or supraclavicular adenopathy. NEUROLOGICAL: Lethargic and confused. Diffuicult to arouse . Motor and sensory grossly within normal limits. Not follows commands. Incoherent speech APpears to move all extremities. PSYCHIATRIC: No obvious anxiety/depression. no apparent hallucinations or other psychotic thought process. Laboratory Laboratory Tests Test 10/29/17 03:42 10/29/17 08:51 White Blood Count 4.6 Red Blood Count 3.44 Hemoglobin 8.9 Hematocrit 28.8 Mean Corpuscular Volume 83.6 Mean Corpuscular Hemoglobin 26.0 Mean Corpuscular Hemoglobin Concent 31.1 Red Cell Distribution Width 20.6 Platelet Count 147 Mean Platelet Volume 7.6 Neutrophils (%) (Auto) 95.6 Lymphocytes (%) (Auto) 2.3 Monocytes (%) (Auto) 1.7 Eosinophils (%) (Auto) 0.0 Basophils (%) (Auto) 0.4 Neutrophils # (Auto) 4.4 Lymphocytes # (Auto) 0.1 Monocytes # (Auto) 0.1 Eosinophils # (Auto) 0.0 Basophils # (Auto) 0.0 CBC Comment AUTO DIFF Differential Comment AUTO DIFF CONFIRMED Blood Urea Nitrogen 45 Creatinine 3.59 Random Glucose 134 Total Protein 7.4 Calcium Level 7.4 Phosphorus Level 4.3 Magnesium Level 1.9 Sodium Level 139 Potassium Level 4.7 Chloride Level 103 Carbon Dioxide Level 27.1 Anion Gap 9 Estimat Glomerular Filtration Rate 21 Protein Corrected Calcium 7.3 Random Vancomycin Level 17.5 Blood Gas Puncture Site RT BRACHIAL Blood Gas Patient Temperature 98.6 Blood Gas HCO3 26 Blood Gas Base Excess 0.6 Blood Gas Oxygen Saturation 95 Arterial Blood pH 7.35 Arterial Blood Partial Pressure CO2 48 Arterial Blood Partial Pressure O2 105 Arterial Blood Oxygen Content 11.7 Arterial Blood Carboxyhemoglobin 1.9 Arterial Blood Methemoglobin 1.2 Blood Gas Hemoglobin 8.6 Oxygen Delivery Device BIPAP Blood Gas Ventilator Setting PS20/EPAP5 Blood Gas Inspired Oxygen 30 Date/Time Source Procedure Growth Status 10/26/17 15:20 Blood Peripheral Aerobic Blood Culture - Preliminary NO GROWTH IN 3 DAYS Resulted 10/26/17 15:20 Blood Peripheral Anaerobic Blood Culture - Preliminary NO GROWTH IN 3 DAYS Resulted 10/26/17 15:00 Urine Catheterized Urine Urine Culture - Final Klebsiella Pneumoniae Esbl Pos Multi-Drug Resistant Complete Result Diagram: 10/29/17 0342 10/29/17 0342 Imaging Last Impressions Chest X-Ray 10/26/17 1425 Signed Impressions: Service Date/Time: Thursday, October 26, 2017 14:31 - CONCLUSION: Prominent cardiac silhouette. Pericardial effusion cannot be entirely excluded. No failure Sung Phillips MD FACR Renal Ultrasound 10/26/17 0000 Signed Impressions: Service Date/Time: Thursday, October 26, 2017 20:06 - CONCLUSION: 1. There is some increased echogenicity of the renal parenchyma suggestive of chronic medical renal disease. 2. No evidence of hydronephrosis. 3. Small 1.1 cm cyst upper pole left kidney. Giuseppe Street MD Assessment and Plan Assessment and Plan HIV disease, Rx unknown ( 2 drugs with Norvir listed as home medx) Presentdd with prominent metabolic encephalopathy - remains confused UTI, ESBL+ E.coli ARF, hyperkalemia, on HD change aabx to Ertapenem (500 mg daily, remally adjusted) Discussed Condition With Gabby Adam MD October 29, 2017 16:22
[2017-10-29] MEDS ORDERED: PHARMACY INFORMATION XX PRN (16:30)
[2017-10-29] MEDS ORDERED: ASP: Documented ESBL, MDR A baumannii or P. aeruginosa PRN (16:30)
--- NOTE | 2017-10-29 16:35 | HHI.NPPN ---
Subjective General Problems: Anemia, Edema, Hypertension Renal Failure: Stage V History of Present Illness 56-year-old male with a past medical history of hypertension, history of HIV, chronic lymphedema of the legs, diabetes mellitus, sleep apnea, ischemic heart disease, was brought to the hospital with altered mental status and not feeling well. I was called to see the patient because of elevated BUN and creatinine and high potassium. The patient has known history of chronic kidney disease and patient was seen by me when he was here in March last year. At that time, he had creatinine in the range of 2.3-3.0 and he was discharged with a creatinine of 2.5 and now he came with a creatinine of 5.0 and also potassium of 7.3. Additional Remarks Patient is alert on BIPAP, in mild resp. distress, responding to questions. (Sameera Rudd) Review of Systems General General Remarks Limited, as he is confused, and not answering appropriately. (Sameera Rudd) Respiratory Lungs: SOB (Sameera Rudd) Objective Data Data Vital Signs Date Time Temp Pulse Resp B/P (MAP) Pulse Ox O2 Delivery O2 Flow Rate FiO2 10/29/17 14:00 88 10/29/17 12:00 98.4 89 14 121/74 (90) 100 10/29/17 12:00 89 10/29/17 10:00 91 10/29/17 09:38 100 Nasal Cannula 4.00 10/29/17 09:33 100 10/29/17 08:00 117 10/29/17 08:00 97.9 117 24 170/94 (119) 100 10/29/17 05:00 84 12 143/79 (100) 100 10/29/17 04:12 100 BiPAP 10/29/17 04:12 100 30 10/29/17 04:00 98.3 85 11 136/79 (98) 100 10/29/17 03:00 85 12 138/82 (100) 100 10/29/17 02:01 91 21 142/78 (99) 100 10/29/17 02:00 91 22 100 10/29/17 01:01 100 Ventilator 30 10/29/17 01:01 87 14 142/78 (99) 100 10/29/17 01:00 87 13 100 10/29/17 00:57 100 30 10/29/17 00:51 16 10/29/17 00:00 98.5 86 14 149/87 (107) 100 10/28/17 21:49 16 10/28/17 21:05 100 BiPAP 30 10/28/17 21:04 100 30 10/28/17 21:00 82 14 151/92 (111) 100 10/28/17 20:00 98.4 85 11 148/94 (112) 100 10/28/17 20:00 85 10/28/17 18:00 87 (Sameera Rudd) -: 10/29/17 0342 10/29/17 0342 Imaging Last Impressions Chest X-Ray 10/26/17 1425 Signed Impressions: Service Date/Time: Thursday, October 26, 2017 14:31 - CONCLUSION: Prominent cardiac silhouette. Pericardial effusion cannot be entirely excluded. No failure Sung Phillips MD FACR Renal Ultrasound 10/26/17 0000 Signed Impressions: Service Date/Time: Thursday, October 26, 2017 20:06 - CONCLUSION: 1. There is some increased echogenicity of the renal parenchyma suggestive of chronic medical renal disease. 2. No evidence of hydronephrosis. 3. Small 1.1 cm cyst upper pole left kidney. Giuseppe Street MD (Sameera Rudd) Physical Exam General Appearance: Anxious (Sameera Rudd) Eyes Eye Exam: Pupils Equal (Sameera Rudd) Throat Throat Exam: Oral Mucosa [place] & Moist (Sameera Rudd) Pulmonary Resp Exam: Breath Sounds Equal, No Distress, Crackles, Rhonchi, Decreased Bases , Diminished Breath Sounds (Sameera Rudd) Cardiology CV Exam: Tachycardia (Sameera Rudd) Gastrointestinal/Abdomen GI Exam: Soft, Non-Tender, Bowel Sounds Present, Distended (Sameera Rudd) Neurologic Neuro Exam: Alert, Awake (Sameera Rudd) Assessment/Plan Assessment Summary: Anemia of CKD, CKD Stage V Electrolyte Assessment: Hyperkalemia Problem List: (1) Stage 5 chronic kidney disease ICD Codes: N18.5 - Chronic kidney disease, stage 5 (2) DM (diabetes mellitus) ICD Codes: E11.9 - DM (diabetes mellitus) Status: Chronic (3) Chronic systolic CHF (congestive heart failure) ICD Codes: I50.22 - Chronic systolic CHF (congestive heart failure) Status: Chronic (4) Hyperkalemia ICD Codes: E87.5 - Hyperkalemia Status: Acute (5) Hypertension ICD Codes: I10 - Hypertension Status: Chronic (6) COPD exacerbation ICD Codes: J44.1 - COPD exacerbation Status: Acute (7) Respiratory distress ICD Codes: R06.00 - Respiratory distress Status: Acute (8) HIV (human immunodeficiency virus infection) ICD Codes: Z21 - HIV (human immunodeficiency virus infection) Status: Chronic (9) PNA (pneumonia) ICD Codes: J18.9 - PNA (pneumonia) Status: Acute (10) Hepatitis C ICD Codes: B19.20 - Hepatitis C Status: Chronic Plan Patient has elevated BUN and Creatinine with high K. Started on HD on 10/27. Hemodialysis yesterday and UF of 3 liters. Has small size kidneys, most likely will need usp HD. Continue antibiotics. Hypocalcemia replacement ordered. On Epogen for anemia. (Sameera Rudd) Plan Patient seen and examined, agree with above. Most likely will need usp HD. (Millicent Ga MD) Sameera Rudd October 29, 2017 16:35 Millicent Ga MD October 29, 2017 21:33
[2017-10-29] MEDS ORDERED: ERTAPENEM INJ 500 MG in SODIUM CHLORIDE 0.9% INJ 100 ML IV SCH (17:00)
[2017-10-29] MEDS: ERTAPENEM INJ 500 MG in SODIUM CHLORIDE 0.9% INJ 100 ML IV SCH (17:22)
[2017-10-29] MEDS ORDERED: CALCIUM GLUCONATE INJ 1 GM in SODIUM CHLORIDE 0.9% INJ 90 ML IV ONE (18:00)
[2017-10-30] VITALS (27 sets, daily range): BP systolic 117–153; BP diastolic 72–98; PULSE 68–84; RESP 12–25; TEMP 97.6–98.3; O2SAT 87–100
[2017-10-30] MEDS ORDERED: ACETAMINOPHEN 500 MG CPLT PO PRN (00:45)
[2017-10-30] MEDS: MORPHINE SULFATE 4 MG/ML INJ IM PRN ×2 (00:58→05:55)
[2017-10-30] MEDS: RESP: ALBUTEROL 2.5 MG/IPRATROPIUM 0.5 MG NEB (SCH) NEB ×4 (04:05→20:50)
[2017-10-30] MEDS: DILTIAZEM HCL 60 MG TAB PO SCH ×3 (04:17→15:53)
[2017-10-30] MEDS: INSULIN NovoLIN REGULAR SUPPLEMENTAL SCALE SQ SCH ×5 (04:17→20:59)
[2017-10-30] MEDS: CHLORHEXIDINE GLUCONATE 2 % 1 PACK (2 CLOTHS) TOP SCH (05:55)
[2017-10-30 06:00] LABS: BASOPHIL % 0.2 % (0.0-2.0); EOSINOPHIL % 0.1 % (0.0-4.0); HEMATOCRIT 28.2 % (39.0-51.0); HEMOGLOBIN 8.8 GM/DL (13.0-17.0); LYMPH % 3.9 % (9.0-44.0); LYMPHOCYTE # 0.1 TH/MM3 (1.0-4.8); MEAN CELL VOLUME 83.7 FL (80.0-100.0); MEAN PLATELET VOLUME 7.7 FL (7.0-11.0); MONO % 6.1 % (0.0-8.0); MONOCYTE # 0.2 TH/MM3 (0-0.9); NEUT % 89.7 % (16.0-70.0); PLATELET COUNT 171 TH/MM3 (150-450); RED BLOOD COUNT 3.37 MIL/MM3 (4.50-5.90); RED CELL DISTRIBUTION WIDTH 20.5 % (11.6-17.2); WHITE BLOOD COUNT 3.3 TH/MM3 (4.0-11.0)
[2017-10-30 06:23] LABS: BICARBONATE 25.6 MEQ/L (21.0-32.0); CALCIUM 7.8 MG/DL (8.5-10.1); CREATININE 3.83 MG/DL (0.60-1.30); PHOSPHORUS 4.3 MG/DL (2.5-4.9)
[2017-10-30 08:18] LABS: BANDS 9 % (0-6); CORRECTED NUCLEATED RBC 3 /100 WBC (0-0); LYMPHOCYTES 1 % (9-44); NEUTROPHIL # MANUAL DIFF 3.3 TH/MM3 (1.8-7.7); NUCLEATED RED BLOOD CELL 3 (0-0); POLYS (SEG NEUTROPHILS) 90 % (16-70)
--- NOTE | 2017-10-30 08:34 | HHI.CCPN ---
Subjective Remarks/Hospital Course 10/26: This is a 56-year-old male who presents to the emergency department for altered mental status and not feeling well. The patient is quite altered and cannot provide any reliable history, and is only mumbling incoherently. He is protecting his airway and on room air, but cannot provide any additional information. Per the emergency department reports and [facility] reports, he has a history of hepatitis B, hepatitis C, COPD, chronic kidney disease of unknown stage, hypertension, CHF. In the emergency department he was found to have a creatinine of 5.08, BUN 65, potassium 7.3, sodium 135. He is afebrile with a normal white count. He is anemic with a hemoglobin of 9.2. Past visits would suggest his baseline creatinine to be between 2.3 and 3.09. He does have a urinalysis which is significant for pyuria with proteinuria and a large amount of bacteria suggestive of a urinary tract infection. On-call food cashier was contacted due to the hyperkalemia and recommended medical management including insulin, D50, Kayexalate, bicarbonate and serial electrolyte's and recommended against emergent dialysis at this time. No additional information is available from the patient. The patient has been in the ICU for acute renal failure with life-threatening electrolyte abnormalities. Review systems is unobtainable due to his clinical condition. The remainder of the history is obtained from review of the medical record. 10/27: Patient seen earlier this a.m., remains lethargic but arousable with periods of agitation. Hemodialysis catheter was placed emergently at bedside and nephrology was consulted for dialysis. Patient is arousable, mumbles words , knows his name but he is not able to provide any history. Urine output is minimal. No bowel movement yet post Kayexalate. ROS: -Unobtainable due to patient's mental status. 10/28 Patient s/p emergent HD yesterday for hyperkalemia K 5.2 this morning from 7.3 on arrival. On BIPAP 18/5 with 30 %FIO2. On Precedex drip for agitation. 10/29 No events overnight. Off Precedex drip. Remains on BIPAP . Afebrile. Awake and alert. s/p HD yesterday with removal 3L. 10/30 Patient had 6 runs nonsustained Vtach ( asymptomatic) For HD today. Objective Vital Signs Date Time Temp Pulse Resp B/P (MAP) Pulse Ox O2 Delivery O2 Flow Rate FiO2 10/30/17 07:28 97 Nasal Cannula 4.00 10/30/17 06:00 77 12 143/97 (112) 10/30/17 06:00 35 10/30/17 04:00 97.6 Intake and Output 10/30/17 10/30/17 10/31/17 08:00 16:00 00:00 Intake Total 400 ml Output Total 350 ml Balance 50 ml Result Diagram: 10/30/17 0525 10/30/1725 Other Results Laboratory Tests Test 10/29/17 08:51 10/30/17 05:25 Blood Gas Puncture Site RT BRACHIAL Blood Gas Patient Temperature 98.6 Blood Gas HCO3 26 mmol/L Blood Gas Base Excess 0.6 mmol/L Blood Gas Oxygen Saturation 95 % Arterial Blood pH 7.35 Arterial Blood Partial Pressure CO2 48 mmHg Arterial Blood Partial Pressure O2 105 mmHg Arterial Blood Oxygen Content 11.7 Vol % Arterial Blood Carboxyhemoglobin 1.9 % Arterial Blood Methemoglobin 1.2 % Blood Gas Hemoglobin 8.6 G/DL Oxygen Delivery Device BIPAP Blood Gas Ventilator Setting PS20/EPAP5 Blood Gas Inspired Oxygen 30 % White Blood Count 3.3 TH/MM3 Red Blood Count 3.37 MIL/MM3 Hemoglobin 8.8 GM/DL Hematocrit 28.2 % Mean Corpuscular Volume 83.7 FL Mean Corpuscular Hemoglobin 26.0 PG Mean Corpuscular Hemoglobin Concent 31.0 % Red Cell Distribution Width 20.5 % Platelet Count 171 TH/MM3 Mean Platelet Volume 7.7 FL Neutrophils (%) (Auto) 89.7 % Lymphocytes (%) (Auto) 3.9 % Monocytes (%) (Auto) 6.1 % Eosinophils (%) (Auto) 0.1 % Basophils (%) (Auto) 0.2 % Neutrophils # (Auto) 3.0 TH/MM3 Lymphocytes # (Auto) 0.1 TH/MM3 Monocytes # (Auto) 0.2 TH/MM3 Eosinophils # (Auto) 0.0 TH/MM3 Basophils # (Auto) 0.0 TH/MM3 CBC Comment AUTO DIFF Differential Total Cells Counted 100 Neutrophils % (Manual) 90 % Band Neutrophils % 9 % Lymphocytes % 1 % Neutrophils # (Manual) 3.3 TH/MM3 Nucleated Red Blood Cells 3 /100 WBC Differential Comment FINAL DIFF MANUAL Platelet Estimate NORMAL Platelet Morphology Comment NORMAL Blood Urea Nitrogen 50 MG/DL Creatinine 3.83 MG/DL Random Glucose 193 MG/DL Calcium Level 7.8 MG/DL Phosphorus Level 4.3 MG/DL Magnesium Level 2.0 MG/DL Sodium Level 138 MEQ/L Potassium Level 4.4 MEQ/L Chloride Level 102 MEQ/L Carbon Dioxide Level 25.6 MEQ/L Anion Gap 10 MEQ/L Estimat Glomerular Filtration Rate 20 ML/MIN Imaging Last Impressions Chest X-Ray 10/26/17 1425 Signed Impressions: Service Date/Time: Thursday, October 26, 2017 14:31 - CONCLUSION: Prominent cardiac silhouette. Pericardial effusion cannot be entirely excluded. No failure Sung Phillips MD FACR Renal Ultrasound 10/26/17 0000 Signed Impressions: Service Date/Time: Thursday, October 26, 2017 20:06 - CONCLUSION: 1. There is some increased echogenicity of the renal parenchyma suggestive of chronic medical renal disease. 2. No evidence of hydronephrosis. 3. Small 1.1 cm cyst upper pole left kidney. Giuseppe Street MD Objective Remarks GENERAL: Middle-aged gentleman lying in be din NAD HEENT: Normocephalic. Atraumatic. Pupils are equal and reactive, sclerae are anicteric. Dry mucous NECK: Trachea is midline. There is no JVD CHEST: Coarse breath sounds bilateral, no wheezes CARDIOVASCULAR: Regular S1 and S2. No murmurs appreciated. ABDOMEN: Soft, nontender, nondistended. No guarding. Bowel sounds are present. No hepatomegaly or splenomegaly appreciated MUSCULOSKELETAL: 2-3+ lower extremity edema. Pulses are palpable. Chronic venous stasis changes NEUROLOGICAL: Awake and alert. Moves all extremities. Pupils are equal and reactive A/P Assessment and Plan Plan by systems: Neurologic: Acute metabolic encephalopathy Uremic encephalopathy History of illicit substance use Monitor neuro status Avoid long-acting sedatives UDS + Opiates Respiratory: Acute hypercapnic respiratory failure COPD Continue with oxygen keep sats >92% Bronchodilators, solumederol 60mg Q8, add Symbicort 160/4.5 Q12 NIPPV PRN for resp distress, Cardiovascular: Change Cardizem to Coreg 3.125mg BID Monitor HR and BP keep MAP>65mmHg Echo showed EF 20%, mod-severe pulm HTN PAP 65mmHg Renal: Acute kidney injury superimposed on chronic renal insufficiency, unknown stage - likely secondary to urinary tract infection Urinary tract infection Monitor renal function, I/O's, avoid nephrotoxins For HD today Renal- Dr. Ga Cr: 3.83 today from 3.59 Renal US: There is increased echogenicity of the renal parenchyma suggestive of chronic medical renal disease. No evidence of hydronephrosis. Small 1.1 cm cyst upper pole left kidney. FEN/GI: On PO diet On Pepcid 10mg IV Q12 Heme/ID: Anemia, unknown cause, likely secondary to chronic disease Urinary tract infection, Monitor CBC urine culture : ESBL Kleb Continue Invanz per ID. Monitor for signs of infections ( Fever, WBC) Endocrine: SSI with accuchecks Prophylaxis: GI Prophylaxis Pepcid DVT Prophylaxis -- SCDs Subcu heparin Lines: Peripheral IVs Right femoral HD catheter (10/27) Level 2 Anh Macias MD October 30, 2017 08:34
[2017-10-30] MEDS: HEPARIN SODIUM - SQ 10,000 UNITS/ML VIAL SQ SCH ×2 (09:11→22:43)
[2017-10-30] MEDS: FAMOTIDINE 20 MG/2 ML VIAL IV PUSH SCH ×2 (09:11→20:59)
[2017-10-30] MEDS: SODIUM CHLORIDE 0.9% FLUSH 10 ML FLUSH IV FLUSH SCH ×2 (09:11→20:59)
[2017-10-30] MEDS: methylPREDNISolone SOD SUCC 125 MG/2 ML VIAL IV SCH ×2 (09:11→15:56)
[2017-10-30] MEDS: BUDESONIDE-FORMOTEROL 160/4.5 MCG INHALER INH SCH (10:30)
[2017-10-30] MEDS: MORPHINE SULFATE 4 MG/ML INJ IV PUSH PRN ×3 (10:31→21:00)
[2017-10-30 14:50] LABS: TROPONIN I 0.08 NG/ML (0.02-0.05)
--- NOTE | 2017-10-30 15:48 | ECHRPT ---
Indication: EVAL LV FXN CONCLUSIONS The left ventricular systolic function is severely reduced with an estimated ejection fraction in th e range of 20%. Severely dilated left ventricle. There is a flattened septum in systole and diastole consistent with right ventricle pressure and vol ume overload. The right ventricular systoilc function is moderately decreased. Moderate mitral valve regurgitation. There is mild tricuspid valve regurgitation. There is estimated oiydxgrz-jv-gflfis pulmonary hypertension present (range 65 mmHg). BP: / HR: Rhythm: MEASUREMENTS (Male / Female) Normal Values Technical Quality: 2D ECHO LV Diastolic Diameter PLAX 7.9 cm 4.2 - 5.9 / 3.9 - 5.3 cm LV Systolic Diameter PLAX 7.5 cm IVS Diastolic Thickness 1.2 cm 0.6 - 1.0 / 0.6 - 0.9 cm LVPW Diastolic Thickness 0.7 cm 0.6 - 1.0 / 0.6 - 0.9 cm LV Relative Wall Thickness 0.2 RV Internal Dim ED PLAX 3.0 cm LA Systolic Diameter LX 4.7 cm 3.0 - 4.0 / 2.7 - 3.8 cm M-MODE Aortic Root Diameter MM 3.6 cm AV Cusp Separation MM 2.3 cm DOPPLER Mitral E Point Velocity 109.0 cm/s Mitral A Point Velocity 77.0 cm/s Mitral E to A Ratio 1.4 TR Peak Velocity 372.0 cm/s TR Peak Gradient 55.4 mmHg Right Atrial Pressure 10.0 mmHg Pulmonary Artery Systolic Pressu 65.4 mmHg Right Ventricular Systolic Press 65.4 mmHg FINDINGS LEFT VENTRICLE Severely dilated left ventricle. Wall thickness is normal. The left ventricular systolic function is severely reduced with an estimated ejection fraction in th e range of 20%. There is global left ventricular dysfunction. There is a flattened septum in systole and diastole consistent with right ventricle pressure and vol ume overload. RIGHT VENTRICLE The right ventricle is mildly dilated. The right ventricular systoilc function is moderately decreased. LEFT ATRIUM The left atrial size is mildly dilated. RIGHT ATRIUM The right atrial size is normal. ATRIAL SEPTUM Normal atrial septal thickness AORTA The aortic root and proximal ascending aorta are normal in size on limited imaging. MITRAL VALVE Structurally normal mitral valve. Mitral annular calcification is present. Moderate mitral valve regurgitation. No mitral valve stenosis. AORTIC VALVE Aortic valve sclerosis is present. No aortic valve regurgitation. No aortic valve stenosis. TRICUSPID VALVE Grossly normal There is mild tricuspid valve regurgitation. There is estimated vhvixiha-em-sbraay pulmonary hypertension present (range 65 mmHg). PULMONARY VALVE No pulmonary valve regurgitation or stenosis. VESSELS The inferior vena cava is normal in size. PERICARDIUM No pericardial effusion. Trung Apodaca DO (Electronically Signed) Final Date:30 Oct 2017 15:47
[2017-10-30] MEDS: ERTAPENEM INJ 500 MG in SODIUM CHLORIDE 0.9% INJ 100 ML IV SCH (15:56)
--- NOTE | 2017-10-30 16:21 | HHI.IDPN ---
Subjective Subjective Remarks on NC O2 More awake able to talk to me now Las time he took HAART was at least 1 month ago not recalling his CD4 count creatinine slightly up @ 3.38 tpoday afebrile all blood clx are negative 5 BMs today Antibiotics ertapenem Allergies: Coded Allergies: benazepril (Unverified Allergy, Severe, SWELLING MOUTH ,TONGUE, 03/20/17) captopril (Unverified Allergy, Severe, SWELLING MOUTH ,TONGUE, 03/20/17) enalaprilat (Unverified Allergy, Severe, SWELLING MOUTH ,TONGUE, 03/20/17) fosinopril (Unverified Allergy, Severe, SWELLING MOUTH ,TONGUE, 03/20/17) lisinopril (Unverified Allergy, Severe, SWELLING MOUTH ,TONGUE, 03/20/17) quinapril (Unverified Allergy, Severe, SWELLING MOUTH ,TONGUE, 03/20/17) Objective . Vital Signs Date Time Temp Pulse Resp B/P (MAP) Pulse Ox O2 Delivery O2 Flow Rate FiO2 10/30/17 14:00 73 10/30/17 12:00 76 10/30/17 11:54 100 35 10/30/17 10:00 80 10/30/17 08:00 74 10/30/17 08:00 98.2 74 15 126/86 (99) 99 10/30/17 07:28 97 Nasal Cannula 4.00 10/30/17 07:00 99 Nasal Cannula 4.00 10/30/17 06:00 77 12 143/97 (112) 100 10/30/17 06:00 100 Bi-Pap 35 10/30/17 05:00 74 14 129/93 (105) 100 10/30/17 04:09 100 35 10/30/17 04:08 100 BiPAP 35 10/30/17 04:00 97.6 72 14 129/89 (102) 100 10/30/17 03:00 68 15 121/89 (100) 100 10/30/17 02:00 72 21 129/87 (101) 100 10/30/17 01:01 69 17 121/77 (92) 100 10/30/17 01:00 68 15 100 10/30/17 00:23 94 BiPAP 35 10/30/17 00:20 93 35 10/30/17 00:00 97.8 84 25 128/88 (101) 87 10/29/17 23:40 100 Nasal Cannula 4.00 10/29/17 23:00 76 22 129/98 (108) 72 10/29/17 22:00 77 24 100 10/29/17 21:40 100 BiPAP 10/29/17 21:37 100 35 10/29/17 21:26 100 Nasal Cannula 4.00 10/29/17 21:02 77 16 123/89 (100) 100 10/29/17 21:00 77 16 100 10/29/17 20:01 98.9 102 33 172/89 (116) 94 10/29/17 20:00 75 10/29/17 20:00 Nasal Cannula 4.00 10/29/17 20:00 99 23 99 10/29/17 19:00 74 17 125/84 (98) 10/29/17 18:00 75 19 123/84 (97) 100 10/29/17 18:00 75 10/29/17 17:00 80 19 117/71 (86) 100 10/29/17 16:29 100 35 . Laboratory Tests Test 10/29/17 03:42 10/30/17 05:25 White Blood Count 4.6 TH/MM3 3.3 TH/MM3 Red Blood Count 3.44 MIL/MM3 3.37 MIL/MM3 Hemoglobin 8.9 GM/DL 8.8 GM/DL Hematocrit 28.8 % 28.2 % Mean Corpuscular Volume 83.6 FL 83.7 FL Mean Corpuscular Hemoglobin 26.0 PG 26.0 PG Mean Corpuscular Hemoglobin Concent 31.1 % 31.0 % Red Cell Distribution Width 20.6 % 20.5 % Platelet Count 147 TH/MM3 171 TH/MM3 Mean Platelet Volume 7.6 FL 7.7 FL Neutrophils (%) (Auto) 95.6 % 89.7 % Lymphocytes (%) (Auto) 2.3 % 3.9 % Monocytes (%) (Auto) 1.7 % 6.1 % Eosinophils (%) (Auto) 0.0 % 0.1 % Basophils (%) (Auto) 0.4 % 0.2 % Neutrophils # (Auto) 4.4 TH/MM3 3.0 TH/MM3 Lymphocytes # (Auto) 0.1 TH/MM3 0.1 TH/MM3 Monocytes # (Auto) 0.1 TH/MM3 0.2 TH/MM3 Eosinophils # (Auto) 0.0 TH/MM3 0.0 TH/MM3 Basophils # (Auto) 0.0 TH/MM3 0.0 TH/MM3 CBC Comment AUTO DIFF AUTO DIFF Differential Comment AUTO DIFF CONFIRMED FINAL DIFF MANUAL Differential Total Cells Counted 100 Neutrophils % (Manual) 90 % Band Neutrophils % 9 % Lymphocytes % 1 % Neutrophils # (Manual) 3.3 TH/MM3 Nucleated Red Blood Cells 3 /100 WBC Platelet Estimate NORMAL Platelet Morphology Comment NORMAL Laboratory Tests Test 10/29/17 03:42 10/30/17 05:25 10/30/17 14:10 Blood Urea Nitrogen 45 MG/DL 50 MG/DL Creatinine 3.59 MG/DL 3.83 MG/DL Random Glucose 134 MG/DL 193 MG/DL Total Protein 7.4 GM/DL Calcium Level 7.4 MG/DL 7.8 MG/DL Phosphorus Level 4.3 MG/DL 4.3 MG/DL Magnesium Level 1.9 MG/DL 2.0 MG/DL Sodium Level 139 MEQ/L 138 MEQ/L Potassium Level 4.7 MEQ/L 4.4 MEQ/L Chloride Level 103 MEQ/L 102 MEQ/L Carbon Dioxide Level 27.1 MEQ/L 25.6 MEQ/L Anion Gap 9 MEQ/L 10 MEQ/L Estimat Glomerular Filtration Rate 21 ML/MIN 20 ML/MIN Protein Corrected Calcium 7.3 MG/DL Total Creatine Kinase 48 U/L Troponin I 0.08 NG/ML Microbiology Date/Time Source Procedure Growth Status 10/29/17 17:24 Blood Peripheral Aerobic Blood Culture - Preliminary NO GROWTH IN 1 DAY Resulted 10/29/17 17:24 Blood Peripheral Anaerobic Blood Culture - Preliminary NO GROWTH IN 1 DAY Resulted Imaging Last Impressions Chest X-Ray 10/26/17 1425 Signed Impressions: Service Date/Time: Thursday, October 26, 2017 14:31 - CONCLUSION: Prominent cardiac silhouette. Pericardial effusion cannot be entirely excluded. No failure Sung Phillips MD FACR Renal Ultrasound 10/26/17 0000 Signed Impressions: Service Date/Time: Thursday, October 26, 2017 20:06 - CONCLUSION: 1. There is some increased echogenicity of the renal parenchyma suggestive of chronic medical renal disease. 2. No evidence of hydronephrosis. 3. Small 1.1 cm cyst upper pole left kidney. Giuseppe Street MD Physical Exam CONSTITUTIONAL/GENERAL: This is an obese middle aged male patient, in no apparent distress. TUBES/LINES/DRAINS: SKIN: No jaundice, rashes, or lesions. CARDIOVASCULAR: Regular rate and rhythm without murmurs, gallops, or rubs. No JVD. Peripheral pulses symmetric. RESPIRATORY/CHEST: Symmetric, unlabored respirations. Clear to auscultation. Breath sounds equal bilaterally. No wheezes, rales, or rhonchi. GASTROINTESTINAL: Abdomen soft, non-tender, nondistended. No hepato-splenomegaly , or palpable masses. No guarding. Bowel sounds present. GENITOURINARY: Without palpable bladder distension. Wang catheter in place with cloudy urine MUSCULOSKELETAL: Extremities without clubbing, cyanosis, Non pitting chronic appearing 3+ edema of RLE and 1+ LLE edema.No cellulitisc changes No joint tenderness or effusion noted. No calf tenderness. No mottling or clubbing. LYMPHATICS: No palpable cervical or supraclavicular adenopathy. NEUROLOGICAL: Sliightly lethargic and much less confused. . Motor and sensory grossly within normal limits. Not follows commands. Coherent normal speech APpears to move all extremities. PSYCHIATRIC: No obvious anxiety/depression. no apparent hallucinations or other psychotic thought process. Assessment & Plan Remarks HIV disease, Rx unknown ( 2 drugs with Norvir listed as home medx) Presentdd with prominent metabolic encephalopathy - resolving UTI, ESBL+ E.coli ARF, hyperkalemia, on HD diarrhea cont Ertapenem (500 mg daily, remally adjusted) x 2 weeks chk stool for C.diff chd CD4 Gabby Drew MD October 30, 2017 16:21
--- NOTE | 2017-10-30 16:28 | HHI.NPPN ---
Subjective General Problems: Anemia, Edema, Hypertension Renal Failure: Stage V History of Present Illness 56-year-old male with a past medical history of hypertension, history of HIV, chronic lymphedema of the legs, diabetes mellitus, sleep apnea, ischemic heart disease, was brought to the hospital with altered mental status and not feeling well. I was called to see the patient because of elevated BUN and creatinine and high potassium. The patient has known history of chronic kidney disease and patient was seen by me when he was here in March last year. At that time, he had creatinine in the range of 2.3-3.0 and he was discharged with a creatinine of 2.5 and now he came with a creatinine of 5.0 and also potassium of 7.3. Additional Remarks Patient is alert , breathing is better, not in distress. Review of Systems General General Remarks Limited, as he is confused, and not answering appropriately. Respiratory Lungs: SOB Objective Data Data Vital Signs Date Time Temp Pulse Resp B/P (MAP) Pulse Ox O2 Delivery O2 Flow Rate FiO2 10/30/17 14:00 73 10/30/17 12:00 76 10/30/17 11:54 100 35 10/30/17 10:00 80 10/30/17 08:00 74 10/30/17 08:00 98.2 74 15 126/86 (99) 99 10/30/17 07:28 97 Nasal Cannula 4.00 10/30/17 07:00 99 Nasal Cannula 4.00 10/30/17 06:00 77 12 143/97 (112) 100 10/30/17 06:00 100 Bi-Pap 35 10/30/17 05:00 74 14 129/93 (105) 100 10/30/17 04:09 100 35 10/30/17 04:08 100 BiPAP 35 10/30/17 04:00 97.6 72 14 129/89 (102) 100 10/30/17 03:00 68 15 121/89 (100) 100 10/30/17 02:00 72 21 129/87 (101) 100 10/30/17 01:01 69 17 121/77 (92) 100 10/30/17 01:00 68 15 100 10/30/17 00:23 94 BiPAP 35 10/30/17 00:20 93 35 10/30/17 00:00 97.8 84 25 128/88 (101) 87 10/29/17 23:40 100 Nasal Cannula 4.00 10/29/17 23:00 76 22 129/98 (108) 72 10/29/17 22:00 77 24 100 10/29/17 21:40 100 BiPAP 10/29/17 21:37 100 35 10/29/17 21:26 100 Nasal Cannula 4.00 10/29/17 21:02 77 16 123/89 (100) 100 10/29/17 21:00 77 16 100 10/29/17 20:01 98.9 102 33 172/89 (116) 94 10/29/17 20:00 75 10/29/17 20:00 Nasal Cannula 4.00 10/29/17 20:00 99 23 99 10/29/17 19:00 74 17 125/84 (98) 10/29/17 18:00 75 19 123/84 (97) 100 10/29/17 18:00 75 10/29/17 17:00 80 19 117/71 (86) 100 10/29/17 16:29 100 35 -: 10/30/17 0525 10/30/17 0525 Microbiology 10/29/17 Aerobic Blood Culture - Preliminary, Resulted NO GROWTH IN 1 DAY 10/29/17 Anaerobic Blood Culture - Preliminary, Resulted NO GROWTH IN 1 DAY Physical Exam General Appearance: Anxious Appearance Remarks On BIPAP and resp. distress. Eyes Eye Exam: Pupils Equal Throat Throat Exam: Oral Mucosa [place] & Moist Pulmonary Resp Exam: Breath Sounds Equal, No Distress, Crackles, Rhonchi, Decreased Bases , Diminished Breath Sounds Cardiology CV Exam: Tachycardia Gastrointestinal/Abdomen GI Exam: Soft, Non-Tender, Bowel Sounds Present, Distended Neurologic Neuro Exam: Alert, Awake Assessment/Plan Assessment Summary: Anemia of CKD, CKD Stage V Electrolyte Assessment: Hyperkalemia Problem List: (1) Stage 5 chronic kidney disease ICD Codes: N18.5 - Chronic kidney disease, stage 5 (2) DM (diabetes mellitus) ICD Codes: E11.9 - DM (diabetes mellitus) Status: Chronic (3) Chronic systolic CHF (congestive heart failure) ICD Codes: I50.22 - Chronic systolic CHF (congestive heart failure) Status: Chronic (4) Hyperkalemia ICD Codes: E87.5 - Hyperkalemia Status: Acute (5) Hypertension ICD Codes: I10 - Hypertension Status: Chronic (6) COPD exacerbation ICD Codes: J44.1 - COPD exacerbation Status: Acute (7) Respiratory distress ICD Codes: R06.00 - Respiratory distress Status: Acute (8) HIV (human immunodeficiency virus infection) ICD Codes: Z21 - HIV (human immunodeficiency virus infection) Status: Chronic (9) PNA (pneumonia) ICD Codes: J18.9 - PNA (pneumonia) Status: Acute (10) Hepatitis C ICD Codes: B19.20 - Hepatitis C Status: Chronic Plan Patient has advance stage 4 chronic kdiney disease. Admitted with elevated BUN and Creatinine and high K level. Started on HD, last was on Saturday. Now non oliguric. K is normal and Creatinine is almost same. Will hold HD today and watch for renal recovery. Follow the urine out put and BMP. Avoid Nephrotoxins. Millicent Ga MD October 30, 2017 16:28
[2017-10-30] MEDS: CARVEDILOL 3.125 MG TAB PO SCH (16:31)
--- NOTE | 2017-10-30 22:06 | EKG ---
Date Performed: 10/30/2017 Time Performed: 11:15:32 PTAGE: 56 years EKG: Sinus rhythm WITH MARKED SINUS ARRHYTHMIA POSSIBLE LEFT ATRIAL ENLARGEMENT MODERATE INTRAVENTRICULAR CONDUCTION D ELAY NONSPECIFIC ST & T-WAVE ABNORMALITY ABNORMAL ECG PREVIOUS TRACING : 10/26/2017 18.26 Since the previous tracing, no significant change noted DOCTOR: Chester Iqbal Interpretating Date/Time 10/30/2017 22:04:54
[2017-10-31] VITALS (27 sets, daily range): BP systolic 135–154; BP diastolic 87–105; PULSE 75–109; RESP 13–23; TEMP 97.7–98.3; O2SAT 89–100
[2017-10-31] MEDS: INSULIN NovoLIN REGULAR SUPPLEMENTAL SCALE SQ SCH ×6 (00:23→21:05)
[2017-10-31] MEDS: methylPREDNISolone SOD SUCC 125 MG/2 ML VIAL IV SCH ×2 (00:23→08:05)
[2017-10-31] MEDS: MORPHINE SULFATE 4 MG/ML INJ IV PUSH PRN ×5 (01:47→21:16)
[2017-10-31] MEDS: RESP: ALBUTEROL 2.5 MG/IPRATROPIUM 0.5 MG NEB (SCH) NEB ×4 (03:42→21:43)
[2017-10-31] MEDS: CHLORHEXIDINE GLUCONATE 2 % 1 PACK (2 CLOTHS) TOP SCH (04:00)
[2017-10-31 04:42] LABS: BICARBONATE 25.7 MEQ/L (21.0-32.0); MAGNESIUM 2.1 MG/DL (1.5-2.5); PHOSPHORUS 4.4 MG/DL (2.5-4.9)
[2017-10-31 04:44] LABS: CREATININE 3.66 MG/DL (0.60-1.30); RANDOM VANCOMYCIN 21.4 COMMENT
[2017-10-31 04:56] LABS: AUTOMATED NEUTROPHIL # 3.2 TH/MM3 (1.8-7.7); BASOPHIL % 0.4 % (0.0-2.0); EOSINOPHIL % 1.2 % (0.0-4.0); HEMATOCRIT 29.2 % (39.0-51.0); HEMOGLOBIN 9.1 GM/DL (13.0-17.0); LYMPH % 4.9 % (9.0-44.0); LYMPHOCYTE # 0.2 TH/MM3 (1.0-4.8); MEAN CELL VOLUME 83.8 FL (80.0-100.0); MEAN PLATELET VOLUME 7.6 FL (7.0-11.0); MONO % 3.8 % (0.0-8.0); MONOCYTE # 0.1 TH/MM3 (0-0.9); NEUT % 89.7 % (16.0-70.0); PLATELET COUNT 145 TH/MM3 (150-450); RED BLOOD COUNT 3.49 MIL/MM3 (4.50-5.90); RED CELL DISTRIBUTION WIDTH 20.8 % (11.6-17.2); WHITE BLOOD COUNT 3.6 TH/MM3 (4.0-11.0)
[2017-10-31] MEDS: FAMOTIDINE 20 MG/2 ML VIAL IV PUSH SCH ×2 (08:04→21:06)
[2017-10-31] MEDS: SODIUM CHLORIDE 0.9% FLUSH 10 ML FLUSH IV FLUSH SCH ×2 (08:04→21:05)
[2017-10-31] MEDS: CARVEDILOL 3.125 MG TAB PO SCH (08:05)
[2017-10-31] MEDS: BUDESONIDE-FORMOTEROL 160/4.5 MCG INHALER INH SCH ×2 (08:05→21:07)
--- NOTE | 2017-10-31 08:42 | HHI.CCPN ---
Subjective Remarks/Hospital Course 10/26: This is a 56-year-old male who presents to the emergency department for altered mental status and not feeling well. The patient is quite altered and cannot provide any reliable history, and is only mumbling incoherently. He is protecting his airway and on room air, but cannot provide any additional information. Per the emergency department reports and EVAC reports, he has a history of hepatitis B, hepatitis C, COPD, chronic kidney disease of unknown stage, hypertension, CHF. In the emergency department he was found to have a creatinine of 5.08, BUN 65, potassium 7.3, sodium 135. He is afebrile with a normal white count. He is anemic with a hemoglobin of 9.2. Past visits would suggest his baseline creatinine to be between 2.3 and 3.09. He does have a urinalysis which is significant for pyuria with proteinuria and a large amount of bacteria suggestive of a urinary tract infection. On-call sem manager was contacted due to the hyperkalemia and recommended medical management including insulin, D50, Kayexalate, bicarbonate and serial electrolyte's and recommended against emergent dialysis at this time. No additional information is available from the patient. The patient has been in the ICU for acute renal failure with life-threatening electrolyte abnormalities. Review systems is unobtainable due to his clinical condition. The remainder of the history is obtained from review of the medical record. 10/27: Patient seen earlier this a.m., remains lethargic but arousable with periods of agitation. Hemodialysis catheter was placed emergently at bedside and nephrology was consulted for dialysis. Patient is arousable, mumbles words , knows his name but he is not able to provide any history. Urine output is minimal. No bowel movement yet post Kayexalate. ROS: -Unobtainable due to patient's mental status. 10/28 Patient s/p emergent HD yesterday for hyperkalemia K 5.2 this morning from 7.3 on arrival. On BIPAP 18/5 with 30 %FIO2. On Precedex drip for agitation. 10/29 No events overnight. Off Precedex drip. Remains on BIPAP . Afebrile. Awake and alert. s/p HD yesterday with removal 3L. 10/30 Patient had 6 runs nonsustained Vtach ( asymptomatic) For HD today. 10/31 No events overnight, patient is lying in bed in NAD. Afebrile. Objective Vital Signs Date Time Temp Pulse Resp B/P (MAP) Pulse Ox O2 Delivery O2 Flow Rate FiO2 10/31/17 07:00 100 Nasal Cannula 4.00 10/31/17 06:00 83 14 140/93 (109) 10/31/17 04:00 98.3 10/31/17 03:37 35 Intake and Output 10/31/17 10/31/17 11/01/17 08:00 16:00 00:00 Intake Total 480 ml Output Total 600 ml Balance -120 ml Result Diagram: 10/31/17 0355 10/31/17 0355 Other Results Laboratory Tests Test 10/30/17 14:10 10/30/17 18:00 10/31/17 03:55 Total Creatine Kinase 48 U/L Troponin I 0.08 NG/ML Stool C. difficile Toxin (PCR) NEGATIVE Stl C. difficile Toxin Epiderm 027 PRESUMPTIVE NEGATIVE White Blood Count 3.6 TH/MM3 Red Blood Count 3.49 MIL/MM3 Hemoglobin 9.1 GM/DL Hematocrit 29.2 % Mean Corpuscular Volume 83.8 FL Mean Corpuscular Hemoglobin 26.0 PG Mean Corpuscular Hemoglobin Concent 31.0 % Red Cell Distribution Width 20.8 % Platelet Count 145 TH/MM3 Mean Platelet Volume 7.6 FL Neutrophils (%) (Auto) 89.7 % Lymphocytes (%) (Auto) 4.9 % Monocytes (%) (Auto) 3.8 % Eosinophils (%) (Auto) 1.2 % Basophils (%) (Auto) 0.4 % Neutrophils # (Auto) 3.2 TH/MM3 Lymphocytes # (Auto) 0.2 TH/MM3 Monocytes # (Auto) 0.1 TH/MM3 Eosinophils # (Auto) 0.0 TH/MM3 Basophils # (Auto) 0.0 TH/MM3 CBC Comment AUTO DIFF Differential Comment AUTO DIFF CONFIRMED Platelet Estimate LOW Platelet Morphology Comment NORMAL Blood Urea Nitrogen 57 MG/DL Creatinine 3.66 MG/DL Random Glucose 207 MG/DL Calcium Level 8.0 MG/DL Phosphorus Level 4.4 MG/DL Magnesium Level 2.1 MG/DL Sodium Level 137 MEQ/L Potassium Level 4.4 MEQ/L Chloride Level 102 MEQ/L Carbon Dioxide Level 25.7 MEQ/L Anion Gap 9 MEQ/L Estimat Glomerular Filtration Rate 21 ML/MIN Random Vancomycin Level 21.4 COMMENT Imaging Last Impressions Chest X-Ray 10/26/17 1425 Signed Impressions: Service Date/Time: Thursday, October 26, 2017 14:31 - CONCLUSION: Prominent cardiac silhouette. Pericardial effusion cannot be entirely excluded. No failure Sung Phillips MD FACR Renal Ultrasound 10/26/17 0000 Signed Impressions: Service Date/Time: Thursday, October 26, 2017 20:06 - CONCLUSION: 1. There is some increased echogenicity of the renal parenchyma suggestive of chronic medical renal disease. 2. No evidence of hydronephrosis. 3. Small 1.1 cm cyst upper pole left kidney. Giuseppe Street MD Objective Remarks GENERAL: Middle-aged gentleman lying in be din NAD HEENT: Normocephalic. Atraumatic. Pupils are equal and reactive, sclerae are anicteric. Dry mucous NECK: Trachea is midline. There is no JVD CHEST: Coarse breath sounds bilateral, no wheezes CARDIOVASCULAR: Regular S1 and S2. No murmurs appreciated. ABDOMEN: Soft, nontender, nondistended. No guarding. Bowel sounds are present. No hepatomegaly or splenomegaly appreciated MUSCULOSKELETAL: 2-3+ lower extremity edema. Pulses are palpable. Chronic venous stasis changes NEUROLOGICAL: Awake and alert. Moves all extremities. Pupils are equal and reactive A/P Assessment and Plan Plan by systems: Neurologic: Acute metabolic encephalopathy Uremic encephalopathy History of illicit substance use Monitor neuro status Avoid long-acting sedatives UDS + Opiates Respiratory: Acute hypercapnic respiratory failure COPD Continue with oxygen keep sats >92% Bronchodilators,Decrease solumederol 40mg Q8, Symbicort 160/4.5 Q12 NIPPV PRN for resp distress, Cardiovascular: Increase Coreg 6.25mg BID, add Hydralazine 25mg Q8 Monitor HR and BP keep MAP>65mmHg Echo showed EF 20%, mod-severe pulm HTN PAP 65mmHg Cards eval Renal: Acute kidney injury superimposed on chronic renal insufficiency, unknown stage - likely secondary to urinary tract infection Urinary tract infection Monitor renal function, I/O's, avoid nephrotoxins HD per renal Renal- Dr. Ga Cr: 3.66 today will discuss with renal if patient requires HD manager terminal then he will need permaA cath placement Renal US: There is increased echogenicity of the renal parenchyma suggestive of chronic medical renal disease. No evidence of hydronephrosis. Small 1.1 cm cyst upper pole left kidney. FEN/GI: On PO diet On Pepcid 10mg IV Q12 Heme/ID: Anemia, unknown cause, likely secondary to chronic disease Urinary tract infection, Monitor CBC urine culture : ESBL Kleb Continue Invanz per ID. Monitor for signs of infections ( Fever, WBC) Endocrine: SSI with accuchecks Prophylaxis: GI Prophylaxis Pepcid DVT Prophylaxis -- SCDs Subcu heparin Lines: Peripheral IVs Right femoral HD catheter (10/27) Will sign off and transfer care to [facility] Level 2 Anh Macias MD October 31, 2017 08:42
--- NOTE | 2017-10-31 10:02 | HHI.NPPN ---
Subjective General Problems: Anemia, Edema, Hypertension Renal Failure: Stage V History of Present Illness 56-year-old male with a past medical history of hypertension, history of HIV, chronic lymphedema of the legs, diabetes mellitus, sleep apnea, ischemic heart disease, was brought to the hospital with altered mental status and not feeling well. I was called to see the patient because of elevated BUN and creatinine and high potassium. The patient has known history of chronic kidney disease and patient was seen by me when he was here in March last year. At that time, he had creatinine in the range of 2.3-3.0 and he was discharged with a creatinine of 2.5 and now he came with a creatinine of 5.0 and also potassium of 7.3. Additional Remarks Patient is alert and oriented. Shortness of breath improved on 4 liters Nasal cannula. (Sameera Rudd) Review of Systems Respiratory Lungs: SOB Respiratory Remarks improving (Sameera Rudd) Cardiovascular Cardiac Remarks Denies chest pain (Sameera Rudd) Gastrointestinal GI Remarks flatus (Sameera Rudd) Objective Data Data Vital Signs Date Time Temp Pulse Resp B/P (MAP) Pulse Ox O2 Delivery O2 Flow Rate FiO2 10/31/17 07:00 100 Nasal Cannula 4.00 10/31/17 06:00 83 14 140/93 (109) 100 10/31/17 05:00 82 13 140/96 (111) 99 10/31/17 04:00 98.3 81 15 144/93 (110) 100 10/31/17 03:37 100 35 10/31/17 03:00 82 16 147/96 (113) 93 10/31/17 02:00 80 18 151/87 (108) 100 10/31/17 01:25 100 Nasal Cannula 3.00 10/31/17 01:00 76 21 148/95 (112) 99 10/31/17 00:00 98.1 75 13 144/94 (111) 99 10/30/17 23:05 99 35 10/30/17 23:00 73 15 143/90 (107) 97 10/30/17 22:00 74 17 117/72 (87) 100 10/30/17 21:03 100 35 10/30/17 21:00 79 19 144/95 (111) 100 10/30/17 20:51 100 Nasal Cannula 4.00 10/30/17 20:00 76 10/30/17 20:00 98.1 80 20 153/89 (110) 97 10/30/17 19:00 100 Nasal Cannula 4.00 10/30/17 18:00 83 10/30/17 16:00 77 10/30/17 16:00 98.2 77 14 141/97 (112) 100 10/30/17 14:00 73 10/30/17 12:00 76 10/30/17 12:00 98.3 76 16 133/98 (110) 99 10/30/17 11:54 100 35 10/30/17 10:00 80 (Sameera Rudd) -: 10/31/17 0355 10/31/17 0355 Imaging Last Impressions Chest X-Ray 10/26/17 1425 Signed Impressions: Service Date/Time: Thursday, October 26, 2017 14:31 - CONCLUSION: Prominent cardiac silhouette. Pericardial effusion cannot be entirely excluded. No failure Sung Phillips MD FACR Renal Ultrasound 10/26/17 0000 Signed Impressions: Service Date/Time: Thursday, October 26, 2017 20:06 - CONCLUSION: 1. There is some increased echogenicity of the renal parenchyma suggestive of chronic medical renal disease. 2. No evidence of hydronephrosis. 3. Small 1.1 cm cyst upper pole left kidney. Giuseppe Street MD (Sameera Rudd) Physical Exam General Appearance: No Acute Distress (Sameera Rudd) Eyes Eye Exam: Pupils Equal (Sameera Rudd) Throat Throat Exam: Oral Mucosa [place] & Moist (Sameera Rudd) Pulmonary Resp Exam: Breath Sounds Equal, No Distress, Rhonchi, Decreased Bases, Diminished Breath Sounds (Sameera Rudd) Cardiology CV Exam: Regular (Sameera Rudd) Gastrointestinal/Abdomen GI Exam: Soft, Non-Tender, Bowel Sounds Present, Distended (Sameera Rudd) Integumentary Skin Exam: Clear, Warm (Sameera Rudd) Extremeties Extremities Exam: Moderate Edema Extremeties Remarks lymphedema right leg (Sameera Rudd) Neurologic Neuro Exam: Alert, Awake (Sameera Rudd) Psychiatric Psych Exam: Appropriate Responses (Sameera Rudd) Assessment/Plan Assessment Summary: Anemia of CKD, CKD Stage V Electrolyte Assessment: Hyperkalemia Problem List: (1) Stage 5 chronic kidney disease ICD Codes: N18.5 - Chronic kidney disease, stage 5 (2) DM (diabetes mellitus) ICD Codes: E11.9 - DM (diabetes mellitus) Status: Chronic (3) Chronic systolic CHF (congestive heart failure) ICD Codes: I50.22 - Chronic systolic CHF (congestive heart failure) Status: Chronic (4) Hyperkalemia ICD Codes: E87.5 - Hyperkalemia Status: Acute (5) Hypertension ICD Codes: I10 - Hypertension Status: Chronic (6) COPD exacerbation ICD Codes: J44.1 - COPD exacerbation Status: Acute (7) Respiratory distress ICD Codes: R06.00 - Respiratory distress Status: Acute (8) HIV (human immunodeficiency virus infection) ICD Codes: Z21 - HIV (human immunodeficiency virus infection) Status: Chronic (9) PNA (pneumonia) ICD Codes: J18.9 - PNA (pneumonia) Status: Acute (10) Hepatitis C ICD Codes: B19.20 - Hepatitis C Status: Chronic Plan Patient has advance stage 4 chronic kidney disease. Admitted with elevated BUN and Creatinine and high K level. Started on HD, last was on Saturday. Now non oliguric with Urinary output of 1000 over 24 hours K is normal and Creatinine is slightly improved at 3.66 from 3.83 Maintain indwelling murry catheter. Patient needs to keep strict I+O's. Will continue to hold HD today and watch for renal recovery. Follow the urine out put and BMP. Avoid Nephrotoxins. (Sameera Rudd) Plan Patient seen and examined, agree with above., will hold HD for now. Follow the urine out put and BMP. (Millicent Ga MD) Sameera Rudd October 31, 2017 10:02 Millicent Ga MD October 31, 2017 21:18
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
--- NOTE | 2017-10-31 12:25 | HHI.IDPN ---
Subjective Subjective Remarks ID Xcover for This is a 56-year-old male who presents to the emergency department for altered mental status and not feeling well. The patient is quite altered and cannot provide any reliable history, and is only mumbling incoherently. He is protecting his airway and on room air, but cannot provide any additional information. Per the emergency department reports and [facility] reports, he has a history of hepatitis B, hepatitis C, COPD, chronic kidney disease of unknown stage, hypertension, CHF. In the emergency department he was found to have a creatinine of 5.08, BUN 65, potassium 7.3, sodium 135. He is afebrile with a normal white count. He has lymphocyte count of 100-200 cw advanced AIDS in the setting of known HIV infection US was negative for hydronephrosis, and parenchimal changes cw medical remanal dz He does have a urinalysis which is significant for pyuria with proteinuria and a large amount of bacteria suggestive of a urinary tract infection. He grew out ESBL + Kleb pneumo from the urine Blood clx so far negative @ 3 days Pt started on dyalisis, remains oliguric (800-900 cc urine/day) Overnight events reviewed. on NC O2 Awake and oriented. not recalling his CD4 count afebrile all blood clx are negative 5 BMs today Cdiff negative. No rash Antibiotics ertapenem Lines Line sites ok Past Medical History reviewed Allergies: Coded Allergies: benazepril (Unverified Allergy, Severe, SWELLING MOUTH ,TONGUE, 03/20/17) captopril (Unverified Allergy, Severe, SWELLING MOUTH ,TONGUE, 03/20/17) enalaprilat (Unverified Allergy, Severe, SWELLING MOUTH ,TONGUE, 03/20/17) fosinopril (Unverified Allergy, Severe, SWELLING MOUTH ,TONGUE, 03/20/17) lisinopril (Unverified Allergy, Severe, SWELLING MOUTH ,TONGUE, 03/20/17) quinapril (Unverified Allergy, Severe, SWELLING MOUTH ,TONGUE, 03/20/17) Objective . Vital Signs Date Time Temp Pulse Resp B/P (MAP) Pulse Ox O2 Delivery O2 Flow Rate FiO2 10/31/17 10:00 95 Nasal Cannula 2.00 10/31/17 07:00 100 Nasal Cannula 4.00 10/31/17 06:00 83 14 140/93 (109) 100 10/31/17 05:00 82 13 140/96 (111) 99 10/31/17 04:00 98.3 81 15 144/93 (110) 100 10/31/17 03:37 100 35 10/31/17 03:00 82 16 147/96 (113) 93 10/31/17 02:00 80 18 151/87 (108) 100 10/31/17 01:25 100 Nasal Cannula 3.00 10/31/17 01:00 76 21 148/95 (112) 99 10/31/17 00:00 98.1 75 13 144/94 (111) 99 10/30/17 23:05 99 35 10/30/17 23:00 73 15 143/90 (107) 97 10/30/17 22:00 74 17 117/72 (87) 100 10/30/17 21:03 100 35 10/30/17 21:00 79 19 144/95 (111) 100 10/30/17 20:51 100 Nasal Cannula 4.00 10/30/17 20:00 76 10/30/17 20:00 98.1 80 20 153/89 (110) 97 10/30/17 19:00 100 Nasal Cannula 4.00 10/30/17 18:00 83 10/30/17 16:00 77 10/30/17 16:00 98.2 77 14 141/97 (112) 100 10/30/17 14:00 73 . Laboratory Tests Test 10/30/17 05:25 10/31/17 03:55 White Blood Count 3.3 TH/MM3 3.6 TH/MM3 Red Blood Count 3.37 MIL/MM3 3.49 MIL/MM3 Hemoglobin 8.8 GM/DL 9.1 GM/DL Hematocrit 28.2 % 29.2 % Mean Corpuscular Volume 83.7 FL 83.8 FL Mean Corpuscular Hemoglobin 26.0 PG 26.0 PG Mean Corpuscular Hemoglobin Concent 31.0 % 31.0 % Red Cell Distribution Width 20.5 % 20.8 % Platelet Count 171 TH/MM3 145 TH/MM3 Mean Platelet Volume 7.7 FL 7.6 FL Neutrophils (%) (Auto) 89.7 % 89.7 % Lymphocytes (%) (Auto) 3.9 % 4.9 % Monocytes (%) (Auto) 6.1 % 3.8 % Eosinophils (%) (Auto) 0.1 % 1.2 % Basophils (%) (Auto) 0.2 % 0.4 % Neutrophils # (Auto) 3.0 TH/MM3 3.2 TH/MM3 Lymphocytes # (Auto) 0.1 TH/MM3 0.2 TH/MM3 Monocytes # (Auto) 0.2 TH/MM3 0.1 TH/MM3 Eosinophils # (Auto) 0.0 TH/MM3 0.0 TH/MM3 Basophils # (Auto) 0.0 TH/MM3 0.0 TH/MM3 CBC Comment AUTO DIFF AUTO DIFF Differential Total Cells Counted 100 Neutrophils % (Manual) 90 % Band Neutrophils % 9 % Lymphocytes % 1 % Neutrophils # (Manual) 3.3 TH/MM3 Nucleated Red Blood Cells 3 /100 WBC Differential Comment FINAL DIFF MANUAL AUTO DIFF CONFIRMED Platelet Estimate NORMAL LOW Platelet Morphology Comment NORMAL NORMAL Laboratory Tests Test 10/30/17 05:25 10/30/17 14:10 10/31/17 03:55 Blood Urea Nitrogen 50 MG/DL 57 MG/DL Creatinine 3.83 MG/DL 3.66 MG/DL Random Glucose 193 MG/DL 207 MG/DL Calcium Level 7.8 MG/DL 8.0 MG/DL Phosphorus Level 4.3 MG/DL 4.4 MG/DL Magnesium Level 2.0 MG/DL 2.1 MG/DL Sodium Level 138 MEQ/L 137 MEQ/L Potassium Level 4.4 MEQ/L 4.4 MEQ/L Chloride Level 102 MEQ/L 102 MEQ/L Carbon Dioxide Level 25.6 MEQ/L 25.7 MEQ/L Anion Gap 10 MEQ/L 9 MEQ/L Estimat Glomerular Filtration Rate 20 ML/MIN 21 ML/MIN Total Creatine Kinase 48 U/L Troponin I 0.08 NG/ML Microbiology Date/Time Source Procedure Growth Status 10/29/17 17:24 Blood Peripheral Aerobic Blood Culture - Preliminary NO GROWTH IN 2 DAYS Resulted 10/29/17 17:24 Blood Peripheral Anaerobic Blood Culture - Preliminary NO GROWTH IN 2 DAYS Resulted Imaging Last Impressions Chest X-Ray 10/26/17 1425 Signed Impressions: Service Date/Time: Thursday, October 26, 2017 14:31 - CONCLUSION: Prominent cardiac silhouette. Pericardial effusion cannot be entirely excluded. No failure Sung Phillips MD FACR Renal Ultrasound 10/26/17 0000 Signed Impressions: Service Date/Time: Thursday, October 26, 2017 20:06 - CONCLUSION: 1. There is some increased echogenicity of the renal parenchyma suggestive of chronic medical renal disease. 2. No evidence of hydronephrosis. 3. Small 1.1 cm cyst upper pole left kidney. Giuseppe Street MD Physical Exam CONSTITUTIONAL/GENERAL: This is an obese middle aged male patient, in no apparent distress. TUBES/LINES/DRAINS: SKIN: No jaundice, rashes, or lesions. CARDIOVASCULAR: Regular rate and rhythm without murmurs, gallops, or rubs. No JVD. Peripheral pulses symmetric. RESPIRATORY/CHEST: Symmetric, unlabored respirations. Clear to auscultation. Breath sounds equal bilaterally. No wheezes, rales, or rhonchi. GASTROINTESTINAL: Abdomen soft, non-tender, nondistended. No hepato-splenomegaly , or palpable masses. No guarding. Bowel sounds present. GENITOURINARY: Without palpable bladder distension. Wang catheter in place with cloudy urine MUSCULOSKELETAL: Extremities without clubbing, cyanosis, Non pitting chronic appearing 3+ edema of RLE and 1+ LLE edema. No cellulitic changes No joint tenderness or effusion noted. No calf tenderness. No mottling or clubbing. LYMPHATICS: No palpable cervical or supraclavicular adenopathy. NEUROLOGICAL: Slightly lethargic and much less confused. . Motor and sensory grossly within normal limits. Not follows commands. Coherent normal speech APpears to move all extremities. PSYCHIATRIC: No obvious anxiety/depression. no apparent hallucinations or other psychotic thought process. Assessment & Plan Remarks HIV disease, Rx unknown ( 2 drugs with Norvir listed as home medx) Presentdd with prominent metabolic encephalopathy - resolving UTI, ESBL+ E.coli CRE kleb pneumo UTI ARF, hyperkalemia, on HD diarrhea Recs DC Ertapenem IV Start Avycaz (ASP criteria: CRE Kleb pneumo) Follow cultures follow clinically to resume care in am. Soraida Matthew MD October 31, 2017 12:25
[2017-10-31] MEDS: methylPREDNISolone SOD SUCC 40 MG/1 ML VIAL IV PUSH SCH ×2 (12:28→16:50)
[2017-10-31] MEDS: cefTAZidime/AVIBACTAM INJ 2.5 GM in SODIUM CHLORIDE 0.9% INJ 50 ML IV SCH ×2 (12:28→21:05)
[2017-10-31] MEDS: HEPARIN SODIUM - SQ 10,000 UNITS/ML VIAL SQ SCH ×2 (12:28→21:06)
[2017-10-31] MEDS: hydrALAZINE HCL 25 MG TAB PO SCH ×2 (16:49→21:06)
[2017-10-31] MEDS: CARVEDILOL 12.5 MG TAB PO SCH (21:06)
[2017-11-01] VITALS (12 sets, daily range): BP systolic 134–153; BP diastolic 91–99; PULSE 84–105; RESP 14–27; TEMP 97–98.3; O2SAT 85–98
[2017-11-01] MEDS: methylPREDNISolone SOD SUCC 40 MG/1 ML VIAL IV PUSH SCH ×3 (00:23→17:00)
[2017-11-01] MEDS: INSULIN NovoLIN REGULAR SUPPLEMENTAL SCALE SQ SCH ×6 (00:23→20:28)
[2017-11-01] MEDS: MORPHINE SULFATE 4 MG/ML INJ IV PUSH PRN ×5 (01:05→20:29)
[2017-11-01] MEDS: CHLORHEXIDINE GLUCONATE 2 % 1 PACK (2 CLOTHS) TOP SCH (04:00)
[2017-11-01] MEDS: cefTAZidime/AVIBACTAM INJ 2.5 GM in SODIUM CHLORIDE 0.9% INJ 50 ML IV SCH (04:24)
[2017-11-01] MEDS: hydrALAZINE HCL 25 MG TAB PO SCH ×3 (04:25→20:28)
[2017-11-01] MEDS: RESP: ALBUTEROL 2.5 MG/IPRATROPIUM 0.5 MG NEB (SCH) NEB (04:48)
[2017-11-01 06:08] LABS: ALBUMIN 2.7 GM/DL (3.4-5.0); ALT (GPT) 20 U/L (12-78); AST (GOT) 15 U/L (15-37); BICARBONATE 23.2 MEQ/L (21.0-32.0); BLOOD UREA NITROGEN 65 MG/DL (7-18); CALCIUM 7.8 MG/DL (8.5-10.1); CHLORIDE 103 MEQ/L (98-107); CREATININE 3.22 MG/DL (0.60-1.30); GLOMERULAR FILTRATION RATE 24 ML/MIN (>89); GLUCOSE,RANDOM 123 MG/DL (74-106); MAGNESIUM 2.2 MG/DL (1.5-2.5); PHOSPHORUS 4.7 MG/DL (2.5-4.9); SODIUM (NA) 137 MEQ/L (136-145)
[2017-11-01 06:09] LABS: ALKALINE PHOSPHATASE 53 U/L (45-117); TOTAL BILIRUBIN ADULT 0.4 MG/DL (0.2-1.0); TOTAL PROTEIN 7.8 GM/DL (6.4-8.2)
[2017-11-01 06:30] LABS: HEMOGLOBIN 9.2 GM/DL (13.0-17.0); MEAN CELL VOLUME 86.6 FL (80.0-100.0); MEAN CORPUSCULAR HEMOGLOBIN 26.4 PG (27.0-34.0); MEAN CORPUSCULAR HGB CONC 30.5 % (32.0-36.0); MEAN PLATELET VOLUME 7.7 FL (7.0-11.0); PLATELET COUNT 147 TH/MM3 (150-450); RED BLOOD COUNT 3.47 MIL/MM3 (4.50-5.90); RED CELL DISTRIBUTION WIDTH 20.2 % (11.6-17.2); WHITE BLOOD COUNT 2.9 TH/MM3 (4.0-11.0)
[2017-11-01] MEDS: SODIUM CHLORIDE 0.9% FLUSH 10 ML FLUSH IV FLUSH SCH ×2 (08:40→20:28)
[2017-11-01] MEDS: FAMOTIDINE 20 MG/2 ML VIAL IV PUSH SCH ×2 (08:40→20:29)
[2017-11-01] MEDS: BUDESONIDE-FORMOTEROL 160/4.5 MCG INHALER INH SCH ×2 (08:41→20:28)
[2017-11-01] MEDS: CARVEDILOL 12.5 MG TAB PO SCH ×2 (08:41→20:28)
--- NOTE | 2017-11-01 09:30 | HHI.PR ---
Subjective Remarks Follow up renal failure, respiratory failure, hyperkalemia. The patient states that he feels better today. He denies chest pain or dyspnea. Denies nausea or vomiting. Objective Vitals Vital Signs Date Time Temp Pulse Resp B/P (MAP) Pulse Ox O2 Delivery O2 Flow Rate FiO2 11/01/17 06:00 88 11/01/17 04:00 98.0 93 18 140/94 (109) 85 11/01/17 04:00 93 11/01/17 02:00 84 11/01/17 00:00 97.0 91 14 143/95 (111) 98 11/01/17 00:00 90 10/31/17 22:00 109 10/31/17 21:38 96 Nasal Cannula 3.00 10/31/17 20:00 96 10/31/17 20:00 98.0 96 14 144/93 (110) 99 10/31/17 19:00 100 Bi-Pap 35 10/31/17 18:00 93 16 142/96 (111) 98 10/31/17 18:00 90 10/31/17 17:01 96 22 140/104 (116) 89 10/31/17 16:32 100 35 10/31/17 16:00 90 10/31/17 16:00 97.7 90 16 135/91 (106) 100 10/31/17 15:00 89 13 139/95 (110) 100 10/31/17 14:00 92 10/31/17 14:00 92 19 152/101 (118) 100 10/31/17 13:03 91 18 154/93 (113) 97 10/31/17 12:34 91 17 152/100 (117) 99 10/31/17 12:04 90 19 146/105 (119) 98 10/31/17 12:00 98.2 89 20 146/100 (115) 95 10/31/17 12:00 89 10/31/17 11:00 88 18 143/92 (109) 94 10/31/17 10:00 95 Nasal Cannula 2.00 10/31/17 10:00 92 18 142/92 (109) 99 10/31/17 10:00 92 I/O 5/17/18 5/17/18 5/17/18 5/18/18 5/18/18 5/18/18 07:00 15:00 23:00 07:00 15:00 23:00 Intake Total 480 ml 50 ml 480 ml 1060 ml Output Total 600 ml 600 ml 650 ml Balance -120 ml 50 ml -120 ml 410 ml Intake Oral 480 ml 480 ml 960 ml IV Total 50 ml 100 ml Output Urine Total 600 ml 600 ml 650 ml # Bowel Movements 3 5 4 Result Diagram: 11/01/17 0531 11/01/17 0531 Imaging Last Impressions Chest X-Ray 10/26/17 1425 Signed Impressions: Service Date/Time: Thursday, October 26, 2017 14:31 - CONCLUSION: Prominent cardiac silhouette. Pericardial effusion cannot be entirely excluded. No failure Sung Phillips MD FACR Renal Ultrasound 10/26/17 0000 Signed Impressions: Service Date/Time: Thursday, October 26, 2017 20:06 - CONCLUSION: 1. There is some increased echogenicity of the renal parenchyma suggestive of chronic medical renal disease. 2. No evidence of hydronephrosis. 3. Small 1.1 cm cyst upper pole left kidney. Giuseppe Street MD Objective Remarks General: No acute distress. Heart: Regular rate and rhythm. No murmur. Lungs: Clear to auscultation bilaterally. No wheezes, rales, or rhonchi. Breathing is nonlabored. Abdomen: Soft, nontender, nondistended. Extremities: Right lower extremity lymphedema. Left lower extremity trace to 1 + edema. Psych: Alert, answers questions appropriately. Neuro: No focal deficits noted. Chest wall: Sutures in place at prior tracheostomy site Procedures 10/27/17 right femoral Vas-Cath placement Urinary Catheter: Yes Assessment to: Remove Vascular Central Line Catheter: Yes Assessment to: Continue Date of Insertion: October 27, 2017 A/P Assessment and Plan 1. Acute respiratory failure, COPD: Improved. Now on oxygen per nasal cannula. Continue bronchodilators, Symbicort, Solu-Medrol. 2. Acute metabolic encephalopathy: Secondary to renal failure. Mental status is improving. 3. Cardiomyopathy: Echocardiogram showed ejection fraction of 20%. AICD in place. Continue Coreg. Appreciate cardiology recommendations. 4. Acute kidney injury superimposed on chronic kidney disease, unknown stage: Appreciate nephrology recommendations. Creatinine is improving. Patient did require short-term hemodialysis, which is on hold now as his kidney function is improving. Will discuss with nephrology whether Vas-Cath can be removed. 5. Anemia, likely secondary to chronic disease: H&H are stable. 6. UTI: Urine culture growing ESBL positive Klebsiella. Appreciate infectious disease recommendations. Continue IV antibiotics. 7. DVT prophylaxis: SCDs, heparin. 8. GI prophylaxis: Pepcid. 9. Hyperkalemia: Improved. Discharge Planning Pending further clinical improvement. Carlos Alberto Kauffman MD November 01, 2017 09:30
[2017-11-01 09:31] LABS: MONOCYTES 2 % (0-8); NEUTROPHIL # MANUAL DIFF 2.8 TH/MM3 (1.8-7.7); POLYS (SEG NEUTROPHILS) 98 % (16-70)
[2017-11-01] MEDS: RESP: ALBUTEROL 2.5 MG/IPRATROPIUM 0.5 MG NEB (PRN) INH (10:31)
[2017-11-01] MEDS: HEPARIN SODIUM - SQ 10,000 UNITS/ML VIAL SQ SCH ×2 (11:46→20:28)
--- NOTE | 2017-11-01 13:01 | HHI.IDPN ---
Subjective Subjective Remarks events noted switched to avicaz 2/2 resitance patern >100,000 CFU/ML KLEBSIELLA PNEUMONIAE ESBL POS MULTI-DRUG RESISTANT CEFTAZIDIME/AVIBACTAM: <=2 g/mL SENSITIVE CEFTOLOZANE/TAZOBACTAM: >8 g/mL RESISTANT COLISTIN: <=2 g/mL cont to have diarrhea 8-9 BMs/d, C.diff negative Antibiotics avicaz Lines Line sites ok Past Medical History reviewed Allergies: Coded Allergies: benazepril (Unverified Allergy, Severe, SWELLING MOUTH ,TONGUE, 03/20/17) captopril (Unverified Allergy, Severe, SWELLING MOUTH ,TONGUE, 03/20/17) enalaprilat (Unverified Allergy, Severe, SWELLING MOUTH ,TONGUE, 03/20/17) fosinopril (Unverified Allergy, Severe, SWELLING MOUTH ,TONGUE, 03/20/17) lisinopril (Unverified Allergy, Severe, SWELLING MOUTH ,TONGUE, 03/20/17) quinapril (Unverified Allergy, Severe, SWELLING MOUTH ,TONGUE, 03/20/17) Objective . Vital Signs Date Time Temp Pulse Resp B/P (MAP) Pulse Ox O2 Delivery O2 Flow Rate FiO2 11/01/17 10:00 97 11/01/17 08:45 20 11/01/17 08:00 97.7 90 19 134/92 (106) 95 11/01/17 08:00 90 11/01/17 07:00 100 Nasal Cannula 4.00 11/01/17 06:00 88 11/01/17 04:00 98.0 93 18 140/94 (109) 85 11/01/17 04:00 93 11/01/17 02:00 84 11/01/17 00:00 97.0 91 14 143/95 (111) 98 11/01/17 00:00 90 10/31/17 22:00 109 10/31/17 21:38 96 Nasal Cannula 3.00 10/31/17 20:00 96 10/31/17 20:00 98.0 96 14 144/93 (110) 99 10/31/17 19:00 100 Bi-Pap 35 10/31/17 18:00 93 16 142/96 (111) 98 10/31/17 18:00 90 10/31/17 17:01 96 22 140/104 (116) 89 10/31/17 16:32 100 35 10/31/17 16:00 90 10/31/17 16:00 97.7 90 16 135/91 (106) 100 10/31/17 15:00 89 13 139/95 (110) 100 10/31/17 14:00 92 10/31/17 14:00 92 19 152/101 (118) 100 10/31/17 13:03 91 18 154/93 (113) 97 . Laboratory Tests Test 10/31/17 03:55 11/01/17 05:31 White Blood Count 3.6 TH/MM3 2.9 TH/MM3 Red Blood Count 3.49 MIL/MM3 3.47 MIL/MM3 Hemoglobin 9.1 GM/DL 9.2 GM/DL Hematocrit 29.2 % 30.0 % Mean Corpuscular Volume 83.8 FL 86.6 FL Mean Corpuscular Hemoglobin 26.0 PG 26.4 PG Mean Corpuscular Hemoglobin Concent 31.0 % 30.5 % Red Cell Distribution Width 20.8 % 20.2 % Platelet Count 145 TH/MM3 147 TH/MM3 Mean Platelet Volume 7.6 FL 7.7 FL Neutrophils (%) (Auto) 89.7 % Lymphocytes (%) (Auto) 4.9 % Monocytes (%) (Auto) 3.8 % Eosinophils (%) (Auto) 1.2 % Basophils (%) (Auto) 0.4 % Neutrophils # (Auto) 3.2 TH/MM3 Lymphocytes # (Auto) 0.2 TH/MM3 Monocytes # (Auto) 0.1 TH/MM3 Eosinophils # (Auto) 0.0 TH/MM3 Basophils # (Auto) 0.0 TH/MM3 CBC Comment AUTO DIFF AUTO DIFF Differential Comment AUTO DIFF CONFIRMED FINAL DIFF MANUAL Platelet Estimate LOW NORMAL Platelet Morphology Comment NORMAL NORMAL Differential Total Cells Counted 100 Neutrophils % (Manual) 98 % Monocytes % 2 % Neutrophils # (Manual) 2.8 TH/MM3 Laboratory Tests Test 10/30/17 14:10 10/31/17 03:55 11/01/17 05:31 Total Creatine Kinase 48 U/L Troponin I 0.08 NG/ML Blood Urea Nitrogen 57 MG/DL 65 MG/DL Creatinine 3.66 MG/DL 3.22 MG/DL Random Glucose 207 MG/DL 123 MG/DL Calcium Level 8.0 MG/DL 7.8 MG/DL Phosphorus Level 4.4 MG/DL 4.7 MG/DL Magnesium Level 2.1 MG/DL 2.2 MG/DL Sodium Level 137 MEQ/L 137 MEQ/L Potassium Level 4.4 MEQ/L 4.9 MEQ/L Chloride Level 102 MEQ/L 103 MEQ/L Carbon Dioxide Level 25.7 MEQ/L 23.2 MEQ/L Anion Gap 9 MEQ/L 11 MEQ/L Estimat Glomerular Filtration Rate 21 ML/MIN 24 ML/MIN Total Protein 7.8 GM/DL Albumin 2.7 GM/DL Alkaline Phosphatase 53 U/L Aspartate Amino Transf (AST/SGOT) 15 U/L Alanine Aminotransferase (ALT/SGPT) 20 U/L Total Bilirubin 0.4 MG/DL Microbiology Date/Time Source Procedure Growth Status 10/29/17 17:24 Blood Peripheral Aerobic Blood Culture - Preliminary NO GROWTH IN 3 DAYS Resulted 10/29/17 17:24 Blood Peripheral Anaerobic Blood Culture - Preliminary NO GROWTH IN 3 DAYS Resulted Imaging Last Impressions Chest X-Ray 10/26/17 1425 Signed Impressions: Service Date/Time: Thursday, October 26, 2017 14:31 - CONCLUSION: Prominent cardiac silhouette. Pericardial effusion cannot be entirely excluded. No failure Sung Phillips MD FACR Renal Ultrasound 10/26/17 0000 Signed Impressions: Service Date/Time: Thursday, October 26, 2017 20:06 - CONCLUSION: 1. There is some increased echogenicity of the renal parenchyma suggestive of chronic medical renal disease. 2. No evidence of hydronephrosis. 3. Small 1.1 cm cyst upper pole left kidney. Giuseppe Street MD Physical Exam CONSTITUTIONAL/GENERAL: This is an obese middle aged male patient, in no apparent distress. TUBES/LINES/DRAINS: SKIN: No jaundice, rashes, or lesions. CARDIOVASCULAR: Regular rate and rhythm without murmurs, gallops, or rubs. No JVD. Peripheral pulses symmetric. RESPIRATORY/CHEST: Symmetric, unlabored respirations. Clear to auscultation. Breath sounds equal bilaterally. No wheezes, rales, or rhonchi. GASTROINTESTINAL: Abdomen soft, non-tender, nondistended. No hepato-splenomegaly , or palpable masses. No guarding. Bowel sounds present. GENITOURINARY: Without palpable bladder distension. Wang catheter in place with cloudy urine MUSCULOSKELETAL: Extremities without clubbing, cyanosis, Non pitting chronic appearing 3+ edema of RLE and 1+ LLE edema. No cellulitic changes No joint tenderness or effusion noted. No calf tenderness. No mottling or clubbing. LYMPHATICS: No palpable cervical or supraclavicular adenopathy. NEUROLOGICAL: fully awake and alert coherent fillows commands PSYCHIATRIC: No obvious anxiety/depression. no apparent hallucinations or other psychotic thought process. Assessment & Plan Remarks HIV disease, Rx unknown ( 2 drugs with Norvir listed as home medx) Presentdd with prominent metabolic encephalopathy - resolving UTI, ESBL+ E.coli CRE kleb pneumo UTI ARF, hyperkalemia, was on HD - creat is stable @ 3.22 today, non oliguric last HD 3 days ago diarrhea, C.diff neg Recs cont Avycaz (ASP criteria: CRE Kleb pneumo) x 14 days - dose needs to be adjusted per improveing GFR Follow cultures follow clinically Gabby Drew MD November 01, 2017 13:01
[2017-11-01] MEDS: cefTAZidime/AVIBACTAM INJ 0.94 GM in SODIUM CHLORIDE 0.9% INJ 50 ML IV SCH (16:00)
--- NOTE | 2017-11-01 16:18 | HHI.NPPN ---
Subjective General Problems: Anemia, Edema, Hypertension Renal Failure: Stage V History of Present Illness 56-year-old male with a past medical history of hypertension, history of HIV, chronic lymphedema of the legs, diabetes mellitus, sleep apnea, ischemic heart disease, was brought to the hospital with altered mental status and not feeling well. I was called to see the patient because of elevated BUN and creatinine and high potassium. The patient has known history of chronic kidney disease and patient was seen by me when he was here in March last year. At that time, he had creatinine in the range of 2.3-3.0 and he was discharged with a creatinine of 2.5 and now he came with a creatinine of 5.0 and also potassium of 7.3. Additional Remarks Patient is alert and oriented. Shortness of breath improving. (Sameera Rudd) Review of Systems Respiratory Lungs: SOB Respiratory Remarks improving (Sameera Rudd) Cardiovascular Cardiac Remarks Denies chest pain (Sameera Rudd) Gastrointestinal GI Remarks flatus (Sameera Rudd) Objective Data Data Vital Signs Date Time Temp Pulse Resp B/P (MAP) Pulse Ox O2 Delivery O2 Flow Rate FiO2 11/01/17 14:39 20 11/01/17 14:00 105 11/01/17 14:00 105 27 145/97 (113) 11/01/17 12:00 98.0 95 17 135/91 (106) 91 11/01/17 12:00 95 11/01/17 10:00 97 11/01/17 08:00 97.7 90 19 134/92 (106) 95 11/01/17 08:00 90 11/01/17 07:00 100 Nasal Cannula 4.00 11/01/17 06:00 88 11/01/17 04:00 98.0 93 18 140/94 (109) 85 11/01/17 04:00 93 11/01/17 02:00 84 11/01/17 00:00 97.0 91 14 143/95 (111) 98 11/01/17 00:00 90 10/31/17 22:00 109 10/31/17 21:38 96 Nasal Cannula 3.00 10/31/17 20:00 96 10/31/17 20:00 98.0 96 14 144/93 (110) 99 10/31/17 19:00 100 Bi-Pap 35 10/31/17 18:00 93 16 142/96 (111) 98 10/31/17 18:00 90 10/31/17 17:01 96 22 140/104 (116) 89 10/31/17 16:32 100 35 (Sameera Rudd) -: 11/01/17 0531 11/01/17 0531 Physical Exam General Appearance: No Acute Distress, Comfortable (Sameera Rudd) Eyes Eye Exam: Pupils Equal (Sameera Rudd) Throat Throat Exam: Oral Mucosa [place] & Moist (Sameera Rudd) Pulmonary Resp Exam: Breath Sounds Equal, No Distress, Decreased Bases, Diminished Breath Sounds (Sameera RuddP) Cardiology CV Exam: Regular (Sameera Rudd) Gastrointestinal/Abdomen GI Exam: Soft, Non-Tender, Bowel Sounds Present, Distended (Sameera Rudd) Integumentary Skin Exam: Clear, Warm (Sameera Rudd) Extremeties Extremities Exam: Moderate Edema Extremeties Remarks lymphedema right leg (Sameera Rudd) Neurologic Neuro Exam: Alert, Awake (Sameera Rudd) Psychiatric Psych Exam: Appropriate Responses (Sameera Rudd) Assessment/Plan Assessment Summary: Anemia of CKD, CKD Stage V Electrolyte Assessment: Hyperkalemia Problem List: (1) Stage 5 chronic kidney disease ICD Codes: N18.5 - Chronic kidney disease, stage 5 (2) DM (diabetes mellitus) ICD Codes: E11.9 - DM (diabetes mellitus) Status: Chronic (3) Chronic systolic CHF (congestive heart failure) ICD Codes: I50.22 - Chronic systolic CHF (congestive heart failure) Status: Chronic (4) Hyperkalemia ICD Codes: E87.5 - Hyperkalemia Status: Acute (5) Hypertension ICD Codes: I10 - Hypertension Status: Chronic (6) COPD exacerbation ICD Codes: J44.1 - COPD exacerbation Status: Acute (7) Respiratory distress ICD Codes: R06.00 - Respiratory distress Status: Acute (8) HIV (human immunodeficiency virus infection) ICD Codes: Z21 - HIV (human immunodeficiency virus infection) Status: Chronic (9) PNA (pneumonia) ICD Codes: J18.9 - PNA (pneumonia) Status: Acute (10) Hepatitis C ICD Codes: B19.20 - Hepatitis C Status: Chronic Plan Patient has advance stage 4 chronic kidney disease. Admitted with elevated BUN and Creatinine and high K level. Started on HD, last was on Saturday. Now non oliguric with Urinary output of 1.2 liters over 24 hours K is normal and Creatinine is slightly improved at 3.22 from 3.66 Keep strict I+O's. Will continue to hold hemodialysis Follow the urine out put and BMP. (Sameera Rudd) Plan Patient seen and examined, agree with above. HD is on hold , has some improvement in the renal function. (Millicent Ga MD) Sameera Rudd November 01, 2017 16:18 Millicent Ga MD November 04, 2017 19:33
[2017-11-01] MEDS ORDERED: MORPHINE SULFATE 4 MG/ML INJ IV PUSH ONE (17:00)
[2017-11-02] VITALS (20 sets, daily range): BP systolic 131–163; BP diastolic 86–100; PULSE 86–104; RESP 13–27; TEMP 97.7–98.5; O2SAT 82–100
[2017-11-02] MEDS: INSULIN NovoLIN REGULAR SUPPLEMENTAL SCALE SQ SCH ×7 (00:27→23:36)
[2017-11-02] MEDS: methylPREDNISolone SOD SUCC 40 MG/1 ML VIAL IV PUSH SCH ×4 (00:28→23:36)
[2017-11-02] MEDS: MORPHINE SULFATE 4 MG/ML INJ IV PUSH PRN ×3 (00:28→10:17)
[2017-11-02] MEDS: CHLORHEXIDINE GLUCONATE 2 % 1 PACK (2 CLOTHS) TOP SCH (04:00)
[2017-11-02] MEDS: cefTAZidime/AVIBACTAM INJ 0.94 GM in SODIUM CHLORIDE 0.9% INJ 50 ML IV SCH ×2 (04:26→17:45)
[2017-11-02] MEDS: hydrALAZINE HCL 25 MG TAB PO SCH ×3 (04:26→21:06)
--- NOTE | 2017-11-02 08:55 | HHI.PR ---
Subjective Remarks Follow up respiratory failure, renal failure. The patient required BiPAP for a few minutes yesterday evening, but did well overnight. States that his breathing is better today. Denies nausea, vomiting. Objective Vitals Vital Signs Date Time Temp Pulse Resp B/P (MAP) Pulse Ox O2 Delivery O2 Flow Rate FiO2 11/02/17 06:00 91 11/02/17 04:00 98.0 88 16 135/92 (106) 99 11/02/17 04:00 90 11/02/17 02:00 90 11/02/17 00:00 95 11/02/17 00:00 97.7 104 15 163/100 (121) 92 11/01/17 22:00 98 11/01/17 20:00 97 11/01/17 20:00 98.3 97 16 153/99 (117) 98 11/01/17 19:00 100 Bi-Pap 35 11/01/17 18:00 97 11/01/17 16:00 97.9 97 17 144/95 (111) 86 11/01/17 16:00 97 11/01/17 14:39 20 11/01/17 14:00 105 11/01/17 14:00 105 27 145/97 (113) 11/01/17 12:00 98.0 95 17 135/91 (106) 91 11/01/17 12:00 95 11/01/17 10:00 97 I/O 11/01/17 11/01/17 11/01/17 11/02/17 11/02/17 11/02/17 07:00 15:00 23:00 07:00 15:00 23:00 Intake Total 1060 ml 1025 ml 960 ml Output Total 650 ml 500 ml 400 ml Balance 410 ml 525 ml 560 ml Intake Oral 960 ml 975 ml 960 ml IV Total 100 ml 50 ml Output Urine Total 650 ml 500 ml 400 ml # Voids 1 # Bowel Movements 4 3 0 Result Diagram: 11/01/17 0531 11/01/17 0531 Imaging Last Impressions Chest X-Ray 10/26/17 1425 Signed Impressions: Service Date/Time: Thursday, October 26, 2017 14:31 - CONCLUSION: Prominent cardiac silhouette. Pericardial effusion cannot be entirely excluded. No failure Sung Phillips MD FACR Renal Ultrasound 10/26/17 0000 Signed Impressions: Service Date/Time: Thursday, October 26, 2017 20:06 - CONCLUSION: 1. There is some increased echogenicity of the renal parenchyma suggestive of chronic medical renal disease. 2. No evidence of hydronephrosis. 3. Small 1.1 cm cyst upper pole left kidney. Giuseppe Street MD Objective Remarks General: No acute distress. Heart: Regular rate and rhythm. No murmur. Lungs: Clear to auscultation bilaterally. No wheezes, rales, or rhonchi. Breathing is nonlabored. Abdomen: Soft, nontender, nondistended. Extremities: Right lower extremity with significant lymphedema. Left lower extremity trace to 1+ edema. Psych: Alert, oriented 3, answers questions appropriately. Neuro: No focal deficits noted. Chest wall: Sutures in place on upper chest wall. Procedures 10/27/17 right femoral Vas-Cath placement Urinary Catheter: No Vascular Central Line Catheter: No A/P Assessment and Plan 1. Acute respiratory failure, COPD: Improved. Now on oxygen per nasal cannula. Occasionally using BiPAP, but less often now. Continue bronchodilators, Symbicort, Solu-Medrol. 2. Acute metabolic encephalopathy: Secondary to renal failure. Mental status is improving. 3. Cardiomyopathy: Echocardiogram showed ejection fraction of 20%. AICD in place. Continue Coreg. Appreciate cardiology recommendations. 4. Acute kidney injury superimposed on chronic kidney disease, unknown stage: Appreciate nephrology recommendations. Creatinine has improved, but remains elevated. Patient did require short-term hemodialysis, which is on hold now as his kidney function is improving. Catheter removed yesterday. Recheck labs in the morning. 5. Anemia, likely secondary to chronic disease: H&H are stable. Recheck labs in the morning. 6. UTI: Urine culture growing ESBL positive Klebsiella. Appreciate infectious disease recommendations. Continue IV antibiotics. 7. DVT prophylaxis: SCDs, heparin. 8. GI prophylaxis: Pepcid. 9. Hyperkalemia: Improved. Discharge Planning Pending further clinical improvement. Transfer to stepdown unit. Carlos Alberto Kauffman MD November 02, 2017 08:55
[2017-11-02] MEDS: BUDESONIDE-FORMOTEROL 160/4.5 MCG INHALER INH SCH ×2 (09:00→21:07)
[2017-11-02] MEDS: HEPARIN SODIUM - SQ 10,000 UNITS/ML VIAL SQ SCH ×2 (10:07→21:07)
[2017-11-02] MEDS: CARVEDILOL 12.5 MG TAB PO SCH ×2 (10:07→21:06)
--- NOTE | 2017-11-02 10:11 | HHI.NPPN ---
Subjective General Problems: Anemia, Edema, Hypertension Renal Failure: Stage V History of Present Illness 56-year-old male with a past medical history of hypertension, history of HIV, chronic lymphedema of the legs, diabetes mellitus, sleep apnea, ischemic heart disease, was brought to the hospital with altered mental status and not feeling well. I was called to see the patient because of elevated BUN and creatinine and high potassium. The patient has known history of chronic kidney disease and patient was seen by me when he was here in March last year. At that time, he had creatinine in the range of 2.3-3.0 and he was discharged with a creatinine of 2.5 and now he came with a creatinine of 5.0 and also potassium of 7.3. Additional Remarks No acute complaints Review of Systems Respiratory Lungs: SOB Respiratory Remarks improving Cardiovascular Cardiac Remarks Denies chest pain Gastrointestinal GI Remarks flatus Objective Data Data Vital Signs Date Time Temp Pulse Resp B/P (MAP) Pulse Ox O2 Delivery O2 Flow Rate FiO2 11/02/17 10:00 99 11/02/17 09:00 97 11/02/17 08:00 90 11/02/17 08:00 98.5 90 13 131/87 (102) 83 11/02/17 07:00 100 Nasal Cannula 3.00 11/02/17 07:00 91 11/02/17 06:00 91 11/02/17 04:00 98.0 88 16 135/92 (106) 99 11/02/17 04:00 90 11/02/17 02:00 90 11/02/17 00:00 95 11/02/17 00:00 97.7 104 15 163/100 (121) 92 11/01/17 22:00 98 11/01/17 20:00 97 11/01/17 20:00 98.3 97 16 153/99 (117) 98 11/01/17 19:00 100 Bi-Pap 35 11/01/17 18:00 97 11/01/17 16:00 97.9 97 17 144/95 (111) 86 11/01/17 16:00 97 11/01/17 14:39 20 11/01/17 14:00 105 11/01/17 14:00 105 27 145/97 (113) 11/01/17 12:00 98.0 95 17 135/91 (106) 91 11/01/17 12:00 95 -: 11/01/17 0531 11/01/17 0531 Physical Exam General Appearance: No Acute Distress, Comfortable Eyes Eye Exam: Pupils Equal Throat Throat Exam: Oral Mucosa [place] & Moist Pulmonary Resp Exam: Breath Sounds Equal, No Distress, Decreased Bases, Diminished Breath Sounds Cardiology CV Exam: Regular Gastrointestinal/Abdomen GI Exam: Soft, Non-Tender, Bowel Sounds Present, Distended Integumentary Skin Exam: Clear, Warm Extremeties Extremities Exam: Moderate Edema Neurologic Neuro Exam: Alert, Awake Psychiatric Psych Exam: Appropriate Responses Assessment/Plan Assessment Summary: Anemia of CKD, CKD Stage V Electrolyte Assessment: Hyperkalemia Problem List: (1) Stage 5 chronic kidney disease ICD Codes: N18.5 - Chronic kidney disease, stage 5 (2) DM (diabetes mellitus) ICD Codes: E11.9 - DM (diabetes mellitus) Status: Chronic (3) Chronic systolic CHF (congestive heart failure) ICD Codes: I50.22 - Chronic systolic CHF (congestive heart failure) Status: Chronic (4) Hyperkalemia ICD Codes: E87.5 - Hyperkalemia Status: Acute (5) Hypertension ICD Codes: I10 - Hypertension Status: Chronic (6) COPD exacerbation ICD Codes: J44.1 - COPD exacerbation Status: Acute (7) Respiratory distress ICD Codes: R06.00 - Respiratory distress Status: Acute (8) HIV (human immunodeficiency virus infection) ICD Codes: Z21 - HIV (human immunodeficiency virus infection) Status: Chronic (9) PNA (pneumonia) ICD Codes: J18.9 - PNA (pneumonia) Status: Acute (10) Hepatitis C ICD Codes: B19.20 - Hepatitis C Status: Chronic Plan Patient has advance stage 4 chronic kidney disease. Admitted with elevated BUN and Creatinine and high K level. Started on HD, last was on Saturday Now non oliguric with Urinary output of 900cc over 24 hours K is normal and Creatinine is slightly improved at 3.22 yesterday from 3.66 Unable to draw blood today Will check AM labs. Keep strict I+O's. Will continue to hold hemodialysis Follow the urine out put and BMP. May consider for AV access as patient stabilizes. Tio Cherry MD November 02, 2017 10:10
[2017-11-02] MEDS: SODIUM CHLORIDE 0.9% FLUSH 10 ML FLUSH IV FLUSH SCH ×2 (10:15→21:06)
[2017-11-02] MEDS: FAMOTIDINE 20 MG/2 ML VIAL IV PUSH SCH ×2 (10:16→21:06)
[2017-11-02 12:55] LABS: HEMATOCRIT 29.9 % (39.0-51.0); MEAN CELL VOLUME 86.7 FL (80.0-100.0); MEAN PLATELET VOLUME 7.6 FL (7.0-11.0); PLATELET COUNT 157 TH/MM3 (150-450); RED BLOOD COUNT 3.45 MIL/MM3 (4.50-5.90); RED CELL DISTRIBUTION WIDTH 19.4 % (11.6-17.2); WHITE BLOOD COUNT 4.7 TH/MM3 (4.0-11.0)
[2017-11-02 13:17] LABS: BICARBONATE 29.4 MEQ/L (21.0-32.0); CALCIUM 7.9 MG/DL (8.5-10.1); CREATININE 3.09 MG/DL (0.60-1.30)
[2017-11-02] MEDS: RESP: ALBUTEROL 2.5 MG/IPRATROPIUM 0.5 MG NEB (PRN) INH ×2 (15:39→20:54)
[2017-11-02] MEDS ORDERED: SODIUM POLYSTYRENE SULFONATE SUSP 15 GM/60 ML CUP PO ONE (15:45)
[2017-11-03] VITALS (27 sets, daily range): BP systolic 138–157; BP diastolic 69–108; PULSE 74–104; RESP 13–18; TEMP 97.6–98.9; O2SAT 98–100
[2017-11-03] MEDS: cefTAZidime/AVIBACTAM INJ 0.94 GM in SODIUM CHLORIDE 0.9% INJ 50 ML IV SCH ×2 (03:40→15:00)
[2017-11-03] MEDS: CHLORHEXIDINE GLUCONATE 2 % 1 PACK (2 CLOTHS) TOP SCH (03:41)
[2017-11-03] MEDS: MORPHINE SULFATE 4 MG/ML INJ IV PUSH PRN ×4 (03:41→22:11)
[2017-11-03] MEDS: INSULIN NovoLIN REGULAR SUPPLEMENTAL SCALE SQ SCH ×6 (03:41→23:59)
[2017-11-03] MEDS: hydrALAZINE HCL 25 MG TAB PO SCH ×3 (05:44→20:39)
[2017-11-03 08:08] LABS: AUTOMATED NEUTROPHIL # 3.5 TH/MM3 (1.8-7.7); BASOPHIL % 0.2 % (0.0-2.0); EOSINOPHIL % 0.4 % (0.0-4.0); HEMATOCRIT 29.4 % (39.0-51.0); HEMOGLOBIN 8.8 GM/DL (13.0-17.0); LYMPHOCYTE # 0.2 TH/MM3 (1.0-4.8); MEAN CELL VOLUME 85.4 FL (80.0-100.0); MEAN CORPUSCULAR HEMOGLOBIN 25.6 PG (27.0-34.0); MEAN PLATELET VOLUME 7.5 FL (7.0-11.0); MONO % 10.5 % (0.0-8.0); MONOCYTE # 0.4 TH/MM3 (0-0.9); NEUT % 84.9 % (16.0-70.0); PLATELET COUNT 158 TH/MM3 (150-450); RED BLOOD COUNT 3.44 MIL/MM3 (4.50-5.90); RED CELL DISTRIBUTION WIDTH 19.7 % (11.6-17.2); WHITE BLOOD COUNT 4.1 TH/MM3 (4.0-11.0)
[2017-11-03 08:20] LABS: BICARBONATE 31.6 MEQ/L (21.0-32.0); CALCIUM 7.9 MG/DL (8.5-10.1); CREATININE 2.89 MG/DL (0.60-1.30); MAGNESIUM 2.3 MG/DL (1.5-2.5); PHOSPHORUS 4.5 MG/DL (2.5-4.9)
[2017-11-03 08:21] LABS: MEAN CORPUSCULAR HGB CONC 29.9 % (32.0-36.0)
[2017-11-03] MEDS: SODIUM CHLORIDE 0.9% FLUSH 10 ML FLUSH IV FLUSH SCH ×2 (08:37→20:35)
[2017-11-03] MEDS: FAMOTIDINE 20 MG/2 ML VIAL IV PUSH SCH (08:37)
[2017-11-03] MEDS: BUDESONIDE-FORMOTEROL 160/4.5 MCG INHALER INH SCH ×2 (08:37→20:45)
[2017-11-03] MEDS: methylPREDNISolone SOD SUCC 40 MG/1 ML VIAL IV PUSH SCH ×3 (08:37→23:59)
[2017-11-03] MEDS: CARVEDILOL 12.5 MG TAB PO SCH ×2 (08:38→20:35)
[2017-11-03] MEDS: HEPARIN SODIUM - SQ 10,000 UNITS/ML VIAL SQ SCH ×2 (11:00→20:38)
[2017-11-03 11:07] LABS: OVALOCYTES 1+ (NORMAL); TARGET CELLS 1+ (NORMAL)
--- NOTE | 2017-11-03 12:37 | HHI.NPPN ---
Subjective General Problems: Anemia, Edema, Hypertension Renal Failure: Stage V History of Present Illness 56-year-old male with a past medical history of hypertension, history of HIV, chronic lymphedema of the legs, diabetes mellitus, sleep apnea, ischemic heart disease, was brought to the hospital with altered mental status and not feeling well. I was called to see the patient because of elevated BUN and creatinine and high potassium. The patient has known history of chronic kidney disease and patient was seen by me when he was here in March last year. At that time, he had creatinine in the range of 2.3-3.0 and he was discharged with a creatinine of 2.5 and now he came with a creatinine of 5.0 and also potassium of 7.3. Additional Remarks No acute complaints Review of Systems Respiratory Lungs: SOB Respiratory Remarks improving Cardiovascular Cardiac Remarks Denies chest pain Gastrointestinal GI Remarks flatus Objective Data Data Vital Signs Date Time Temp Pulse Resp B/P (MAP) Pulse Ox O2 Delivery O2 Flow Rate FiO2 11/03/17 11:51 100 BiPAP 35 11/03/17 11:48 100 35 11/03/17 10:00 90 11/03/17 09:00 96 Nasal Cannula 3.00 11/03/17 09:00 100 11/03/17 08:00 100 Bi-Pap 11/03/17 08:00 97.6 83 13 157/108 (124) 100 11/03/17 08:00 80 11/03/17 07:00 91 11/03/17 06:00 90 11/03/17 05:00 88 11/03/17 04:00 76 11/03/17 04:00 Bi-Pap 35 11/03/17 04:00 98.2 76 18 147/69 (95) 100 11/03/17 03:00 74 11/03/17 02:43 100 35 11/03/17 02:00 81 11/03/17 01:00 80 11/03/17 00:00 86 11/02/17 23:42 Bi-Pap 35 11/02/17 23:42 98.5 86 18 151/97 (115) 100 11/02/17 22:00 87 11/02/17 20:54 100 35 11/02/17 20:00 96 11/02/17 20:00 97.9 96 27 147/97 (114) 82 11/02/17 19:00 100 Nasal Cannula 3.00 11/02/17 18:00 89 11/02/17 17:00 90 11/02/17 16:00 98.5 87 16 137/86 (103) 100 11/02/17 16:00 87 11/02/17 15:00 92 11/02/17 14:00 94 11/02/17 13:00 94 -: 11/03/17 0700 11/03/17 0700 Physical Exam General Appearance: No Acute Distress, Comfortable Eyes Eye Exam: Pupils Equal Throat Throat Exam: Oral Mucosa [place] & Moist Pulmonary Resp Exam: Breath Sounds Equal, No Distress, Decreased Bases, Diminished Breath Sounds Cardiology CV Exam: Regular Gastrointestinal/Abdomen GI Exam: Soft, Non-Tender, Bowel Sounds Present, Distended Integumentary Skin Exam: Clear, Warm Extremeties Extremities Exam: Moderate Edema Neurologic Neuro Exam: Alert, Awake Psychiatric Psych Exam: Appropriate Responses Assessment/Plan Assessment Summary: Anemia of CKD, CKD Stage V Electrolyte Assessment: Hyperkalemia Problem List: (1) Stage 5 chronic kidney disease ICD Codes: N18.5 - Chronic kidney disease, stage 5 (2) DM (diabetes mellitus) ICD Codes: E11.9 - DM (diabetes mellitus) Status: Chronic (3) Chronic systolic CHF (congestive heart failure) ICD Codes: I50.22 - Chronic systolic CHF (congestive heart failure) Status: Chronic (4) Hyperkalemia ICD Codes: E87.5 - Hyperkalemia Status: Acute (5) Hypertension ICD Codes: I10 - Hypertension Status: Chronic (6) COPD exacerbation ICD Codes: J44.1 - COPD exacerbation Status: Acute (7) Respiratory distress ICD Codes: R06.00 - Respiratory distress Status: Acute (8) HIV (human immunodeficiency virus infection) ICD Codes: Z21 - HIV (human immunodeficiency virus infection) Status: Chronic (9) PNA (pneumonia) ICD Codes: J18.9 - PNA (pneumonia) Status: Acute (10) Hepatitis C ICD Codes: B19.20 - Hepatitis C Status: Chronic Plan Patient has advance stage 4 chronic kidney disease. Admitted with elevated BUN and Creatinine and high K level. Started on HD, last was on Saturday Now non oliguric with Urinary output of 1500cc over 24 hours Creatinine improvin.6 -> 3.2 -> 2.9 Keep strict I+O's. Will continue to hold hemodialysis Follow the urine out put and BMP. May consider for AV access as patient stabilizes. Tio Cherry MD November 03, 2017 12:37
--- NOTE | 2017-11-03 17:49 | HHI.PR ---
Subjective Remarks Patient laying in bed, he is on BiPAP, poor historian, he wants more morphine "Morphine is the only thing keep me calm " No fever Objective Vitals Vital Signs Date Time Temp Pulse Resp B/P (MAP) Pulse Ox O2 Delivery O2 Flow Rate FiO2 11/03/17 16:00 96 11/03/17 15:05 98.9 94 14 150/91 (110) 98 11/03/17 15:00 97 11/03/17 14:00 104 11/03/17 13:00 102 11/03/17 12:00 100 11/03/17 11:51 100 BiPAP 35 11/03/17 11:48 100 35 11/03/17 10:00 90 11/03/17 09:00 96 Nasal Cannula 3.00 11/03/17 09:00 100 11/03/17 08:00 100 Bi-Pap 11/03/17 08:00 97.6 83 13 157/108 (124) 100 11/03/17 08:00 80 11/03/17 07:00 91 11/03/17 06:00 90 11/03/17 05:00 88 11/03/17 04:00 76 11/03/17 04:00 Bi-Pap 35 11/03/17 04:00 98.2 76 18 147/69 (95) 100 11/03/17 03:00 74 11/03/17 02:43 100 35 11/03/17 02:00 81 11/03/17 01:00 80 11/03/17 00:00 86 11/02/17 23:42 Bi-Pap 35 11/02/17 23:42 98.5 86 18 151/97 (115) 100 11/02/17 22:00 87 11/02/17 20:54 100 35 11/02/17 20:00 96 11/02/17 20:00 97.9 96 27 147/97 (114) 82 11/02/17 19:00 100 Nasal Cannula 3.00 11/02/17 18:00 89 I/O 11/02/17 11/02/17 11/02/17 11/03/17 11/03/17 11/03/17 07:00 15:00 23:00 07:00 15:00 23:00 Intake Total 960 ml 650 ml 240 ml Output Total 400 ml 1000 ml 500 ml Balance 560 ml -350 ml -260 ml Intake Oral 960 ml 600 ml 240 ml IV Total 50 ml Output Urine Total 400 ml 1000 ml 500 ml # Voids 1 # Bowel Movements 0 0 Result Diagram: 11/03/17 0700 11/03/17 0700 Objective Remarks GENERAL: This is a morbidly obese, well-developed patient, in no apparent distress. CARDIOVASCULAR: RRR, no gallops, or rubs. RESPIRATORY: Bilateral crackles GASTROINTESTINAL: Abdomen soft, non-tender, nondistended. Positive bowel sounds MUSCULOSKELETAL: Left lower extremity lymphedema NEUROLOGICAL: Awake and alert. Moves all extremity. Normal speech.no focal neurological deficit Procedures 10/27/17 right femoral Vas-Cath placement A/P Assessment and Plan 11/03: Potassium 5.1, continue current care, currently hemodialysis on hold renal following, appreciate their input, appreciate ID follow-up, continue Ceftin as a dime, monitor temperature and CBC A/P: 1. Acute respiratory failure, COPD: Improved. Now on oxygen per nasal cannula. Occasionally using BiPAP, but less often now. Continue bronchodilators, Symbicort, Solu-Medrol. 2. Acute metabolic encephalopathy: Secondary to renal failure. Mental status is improving. 3. Cardiomyopathy: Echocardiogram showed ejection fraction of 20%. AICD in place. Continue Coreg. Appreciate cardiology recommendations. 4. Acute kidney injury superimposed on chronic kidney disease, unknown stage: Appreciate nephrology recommendations. Creatinine has improved, but remains elevated. Patient did require short-term hemodialysis, which is on hold now as his kidney function is improving. Catheter removed yesterday. Recheck labs in the morning. 5. Anemia, likely secondary to chronic disease: H&H are stable. Recheck labs in the morning. 6. UTI: Urine culture growing ESBL positive Klebsiella. Appreciate infectious disease recommendations. Continue IV antibiotics. 7. DVT prophylaxis: SCDs, heparin. 8. GI prophylaxis: Pepcid. Eric Fine MD November 03, 2017 17:49
[2017-11-03] MEDS ORDERED: LORazepam 0.5 MG TAB PO PRN (19:45)
[2017-11-03] MEDS: FAMOTIDINE 20 MG TAB PO SCH (20:35)
[2017-11-04] VITALS (23 sets, daily range): BP systolic 139–156; BP diastolic 92–106; PULSE 80–102; RESP 15–22; TEMP 97.1–99.4; O2SAT 96–100
[2017-11-04] MEDS: MORPHINE SULFATE 4 MG/ML INJ IV PUSH PRN ×3 (02:07→23:25)
[2017-11-04] MEDS: CHLORHEXIDINE GLUCONATE 2 % 1 PACK (2 CLOTHS) TOP SCH (04:00)
[2017-11-04] MEDS: cefTAZidime/AVIBACTAM INJ 0.94 GM in SODIUM CHLORIDE 0.9% INJ 50 ML IV SCH ×2 (04:10→16:00)
[2017-11-04] MEDS: INSULIN NovoLIN REGULAR SUPPLEMENTAL SCALE SQ SCH ×5 (04:14→20:00)
[2017-11-04] MEDS: hydrALAZINE HCL 25 MG TAB PO SCH ×2 (05:22→20:45)
[2017-11-04] MEDS: FAMOTIDINE 20 MG TAB PO SCH ×2 (09:00→20:38)
[2017-11-04] MEDS: methylPREDNISolone SOD SUCC 40 MG/1 ML VIAL IV PUSH SCH ×2 (09:00→17:26)
[2017-11-04] MEDS: SODIUM CHLORIDE 0.9% FLUSH 10 ML FLUSH IV FLUSH SCH ×2 (09:00→20:39)
[2017-11-04] MEDS: BUDESONIDE-FORMOTEROL 160/4.5 MCG INHALER INH SCH ×2 (09:00→21:51)
[2017-11-04] MEDS: CARVEDILOL 12.5 MG TAB PO SCH ×2 (09:00→20:38)
[2017-11-04] MEDS: HEPARIN SODIUM - SQ 10,000 UNITS/ML VIAL SQ SCH ×2 (09:15→21:51)
--- NOTE | 2017-11-04 10:21 | HHI.NPPN ---
Subjective General Problems: Anemia, Edema, Hypertension Renal Failure: Stage V History of Present Illness 56-year-old male with a past medical history of hypertension, history of HIV, chronic lymphedema of the legs, diabetes mellitus, sleep apnea, ischemic heart disease, was brought to the hospital with altered mental status and not feeling well. I was called to see the patient because of elevated BUN and creatinine and high potassium. The patient has known history of chronic kidney disease and patient was seen by me when he was here in March last year. At that time, he had creatinine in the range of 2.3-3.0 and he was discharged with a creatinine of 2.5 and now he came with a creatinine of 5.0 and also potassium of 7.3. Additional Remarks On bipap and difficult to arouse. Minimally responding. Discussed with Nursing. (Sameera Rudd) Review of Systems Respiratory Lungs: SOB Respiratory Remarks improving (Sameera Rudd) Cardiovascular Cardiac Remarks Denies chest pain (Sameera Rudd) Gastrointestinal GI Remarks flatus (Sameera Rudd) Objective Data Data Vital Signs Date Time Temp Pulse Resp B/P (MAP) Pulse Ox O2 Delivery O2 Flow Rate FiO2 11/04/17 09:48 88 11/04/17 09:11 99 35 11/04/17 08:41 98.4 84 22 139/95 (110) 98 11/04/17 08:41 98 Bi-Pap 11/04/17 07:49 99 Nasal Cannula 3.00 11/04/17 06:00 81 11/04/17 05:00 83 11/04/17 04:00 Bi-Pap 35 11/04/17 04:00 85 11/04/17 04:00 98.1 85 18 146/103 (117) 98 11/04/17 03:00 80 11/04/17 02:59 97 35 11/04/17 02:00 83 11/04/17 01:00 81 11/04/17 00:00 90 11/04/17 00:00 98.5 90 18 148/105 (119) 96 11/04/17 00:00 Bi-Pap 35 11/03/17 23:00 93 11/03/17 22:00 90 11/03/17 21:27 100 35 11/03/17 21:00 88 11/03/17 20:00 98.3 94 18 138/97 (111) 99 11/03/17 20:00 Bi-Pap 35 11/03/17 20:00 94 11/03/17 18:00 96 Nasal Cannula 5.00 11/03/17 18:00 101 11/03/17 17:00 94 11/03/17 16:00 96 11/03/17 15:05 98.9 94 14 150/91 (110) 98 11/03/17 15:00 97 11/03/17 14:00 104 11/03/17 13:00 102 11/03/17 12:00 100 11/03/17 11:51 100 BiPAP 35 11/03/17 11:48 100 35 (Sameera Rudd) -: 11/03/17 0700 11/03/17 0700 Physical Exam General Appearance: No Acute Distress, Comfortable (Sameera Rudd) Eyes Eye Exam: Pupils Equal (Sameera Rudd) Throat Throat Exam: Oral Mucosa [place] & Moist (Sameera Rudd) Pulmonary Resp Exam: Breath Sounds Equal, No Distress, Decreased Bases, Diminished Breath Sounds (Sameera Rudd) Cardiology CV Exam: Regular (Sameera Rudd) Gastrointestinal/Abdomen GI Exam: Soft, Non-Tender, Bowel Sounds Present, Distended (Sameera Rudd) Integumentary Skin Exam: Clear, Warm (Sameera Rudd) Extremeties Extremities Exam: Moderate Edema Extremeties Remarks lymphedema right leg (Sameera Rudd) Neurologic Neuro Exam: Alert, Awake (Sameera Rudd) Psychiatric Psych Exam: Appropriate Responses (Sameera Rudd) Assessment/Plan Assessment Summary: Anemia of CKD, CKD Stage V Electrolyte Assessment: Hyperkalemia Problem List: (1) Stage 5 chronic kidney disease ICD Codes: N18.5 - Chronic kidney disease, stage 5 (2) DM (diabetes mellitus) ICD Codes: E11.9 - DM (diabetes mellitus) Status: Chronic (3) Chronic systolic CHF (congestive heart failure) ICD Codes: I50.22 - Chronic systolic CHF (congestive heart failure) Status: Chronic (4) Hyperkalemia ICD Codes: E87.5 - Hyperkalemia Status: Acute (5) Hypertension ICD Codes: I10 - Hypertension Status: Chronic (6) COPD exacerbation ICD Codes: J44.1 - COPD exacerbation Status: Acute (7) Respiratory distress ICD Codes: R06.00 - Respiratory distress Status: Acute (8) HIV (human immunodeficiency virus infection) ICD Codes: Z21 - HIV (human immunodeficiency virus infection) Status: Chronic (9) PNA (pneumonia) ICD Codes: J18.9 - PNA (pneumonia) Status: Acute (10) Hepatitis C ICD Codes: B19.20 - Hepatitis C Status: Chronic Plan Patient has advance stage 4 chronic kidney disease. Admitted with elevated BUN and Creatinine and high K level. Started on HD, last was on Saturday Now non oliguric with Urinary output of 1500cc over 24 hours Creatinine has been improvin.6 -> 3.2 -> 2.9 Urinary output at 1.2 liters/24 hours Keep strict I+O's. Will continue to hold hemodialysis Follow the urine out put and BMP. May consider for AV access as patient stabilizes. Labs ordered for AM (Sameera Rudd) Plan Patient seen and examined, agree with above. Transferred to [facility], has Co2 retention and resp. failure. Creatinine is better, K is elevated, will follow. (Millicent Ga MD) Sameera Rudd November 04, 2017 10:20 Millicent Ga MD November 04, 2017 19:38
[2017-11-04] MEDS ORDERED: hydrALAZINE HCL 20 MG/ML VIAL IV PUSH ONE (11:00)
[2017-11-04 13:24] LABS: AUTOMATED NEUTROPHIL # 4.3 TH/MM3 (1.8-7.7); EOSINOPHIL % 0.1 % (0.0-4.0); HEMATOCRIT 30.2 % (39.0-51.0); LYMPH % 2.3 % (9.0-44.0); LYMPHOCYTE # 0.1 TH/MM3 (1.0-4.8); MEAN CORPUSCULAR HEMOGLOBIN 25.3 PG (27.0-34.0); MONO % 3.8 % (0.0-8.0); MONOCYTE # 0.2 TH/MM3 (0-0.9); NEUT % 92.8 % (16.0-70.0); PLATELET COUNT 185 TH/MM3 (150-450); RED BLOOD COUNT 3.55 MIL/MM3 (4.50-5.90); RED CELL DISTRIBUTION WIDTH 19.6 % (11.6-17.2); WHITE BLOOD COUNT 4.7 TH/MM3 (4.0-11.0)
[2017-11-04 13:25] LABS: MEAN CORPUSCULAR HGB CONC 29.7 % (32.0-36.0)
[2017-11-04 13:54] LABS: BICARBONATE 30.9 MEQ/L (21.0-32.0); CALCIUM 8.1 MG/DL (8.5-10.1); CREATININE 2.65 MG/DL (0.60-1.30)
[2017-11-04 14:07] LABS: BANDS 1 % (0-6); CORRECTED NUCLEATED RBC 2 /100 WBC (0-0); LYMPHOCYTES 6 % (9-44); MONOCYTES 1 % (0-8); NEUTROPHIL # MANUAL DIFF 4.4 TH/MM3 (1.8-7.7); NUCLEATED RED BLOOD CELL 2 (0-0); POLYS (SEG NEUTROPHILS) 92 % (16-70)
[2017-11-04] MEDS ORDERED: INSULIN HUMAN REGULAR 1,000 UNITS/10 ML VIAL IV PUSH ONE (14:30)
[2017-11-04] MEDS ORDERED: DEXTROSE 50% IN WATER 50 ML VIAL(D50) IV ONE (14:30)
[2017-11-04] MEDS ORDERED: CALCIUM GLUCONATE INJ 2 GM in DEXTROSE 5% IN WATER 100ML INJ 100 ML IV ONE ×4 (14:30→14:45)
--- NOTE | 2017-11-04 14:34 | RADRPT ---
EXAM DATE/TIME: 11/04/2017 12:56 [facility] COMPARISON: CHEST SINGLE AP, October 26, 2017, 14:31. INDICATIONS : Shortness of breath. MEDICAL HISTORY : Hypertension. Chronic obstructive pulmonary disease. Myocardial infarction. Chronic obstructive p ulmonary disease. Congestive heart failure. SURGICAL HISTORY : Pacemaker. ENCOUNTER: Subsequent ACUITY: 1 week PAIN SCORE: 0/10 LOCATION: Bilateral chest FINDINGS: Single view of the chest demonstrates increasing basilar opacity compared to the prior study. Heart remains moderately enlarged. ICD remains in good position. CONCLUSION: Increasing basilar opacity characteristic of bilateral effusions and underlying airspace disease. Moderate cardiomegaly ICD Ignacio Ndiaye MD on November 04, 2017 at 14:31 Board Certified Radiologist. This report was verified electronically.
[2017-11-04] MEDS: SODIUM POLYSTYRENE SULFONATE SUSP 15 GM/60 ML CUP PO/NG SCH ×5 (14:40→21:52)
--- NOTE | 2017-11-04 14:59 | HHI.PR ---
Subjective Remarks Patient is much more lethargic today he is hypoxic on the BiPAP, I order stat ABG and chest x-ray lactic acid, CBC stat, discussed with respiratory his saturation dropped to 82 on room air while she was trying to get the ABG He is not able to give any history barely catching his breath with the BiPAP Later on ABG came back positive for pH 7.24, PCO2 71, PO2 46 I transfer patient to ICU and called stat college associate Dr. Velázquez who agreed to monitor the patient in case he needed intubation Objective Vitals Vital Signs Date Time Temp Pulse Resp B/P (MAP) Pulse Ox O2 Delivery O2 Flow Rate FiO2 11/04/17 14:00 86 11/04/17 13:52 97 35 11/04/17 13:28 95 11/04/17 11:50 85 20 142/92 (109) 100 11/04/17 11:21 98 Bi-Pap 35 11/04/17 11:16 97.2 88 22 143/106 (118) 100 11/04/17 10:32 91 22 142/105 (117) 100 11/04/17 10:31 89 11/04/17 09:48 88 11/04/17 09:11 99 35 11/04/17 08:41 98.4 84 22 139/95 (110) 98 11/04/17 08:41 98 Bi-Pap 11/04/17 07:49 99 Nasal Cannula 3.00 11/04/17 06:00 81 11/04/17 05:00 83 11/04/17 04:00 Bi-Pap 35 11/04/17 04:00 85 11/04/17 04:00 98.1 85 18 146/103 (117) 98 11/04/17 03:00 80 11/04/17 02:59 97 35 11/04/17 02:00 83 11/04/17 01:00 81 11/04/17 00:00 90 11/04/17 00:00 98.5 90 18 148/105 (119) 96 11/04/17 00:00 Bi-Pap 35 11/03/17 23:00 93 11/03/17 22:00 90 11/03/17 21:27 100 35 11/03/17 21:00 88 11/03/17 20:00 98.3 94 18 138/97 (111) 99 11/03/17 20:00 Bi-Pap 35 11/03/17 20:00 94 11/03/17 18:00 96 Nasal Cannula 5.00 11/03/17 18:00 101 11/03/17 17:00 94 11/03/17 16:00 96 11/03/17 15:05 98.9 94 14 150/91 (110) 98 11/03/17 15:00 97 I/O 11/03/17 11/03/17 11/03/17 11/04/17 11/04/17 11/04/17 07:00 15:00 23:00 07:00 15:00 23:00 Intake Total 290 ml 720 ml 530 ml Output Total 500 ml 600 ml 650 ml Balance -210 ml 120 ml -120 ml Intake Oral 240 ml 720 ml 480 ml IV Total 50 ml 50 ml Output Urine Total 500 ml 600 ml 650 ml # Bowel Movements 0 0 Result Diagram: 11/04/17 1312 11/04/17 1312 Objective Remarks GENERAL: This is a morbidly obese, well-developed patient, in respiratory distress on BiPAP CARDIOVASCULAR: RRR, no gallops, or rubs. RESPIRATORY: Bilateral crackles, diminished breath sound GASTROINTESTINAL: Abdomen soft, non-tender, nondistended. Positive bowel sounds MUSCULOSKELETAL: Left lower extremity lymphedema NEUROLOGICAL: Awake lethargic on BiPAP moves all extremity. Procedures 10/27/17 right femoral Vas-Cath placement A/P Assessment and Plan 11/04:Patient is much more lethargic today he is hypoxic on the BiPAP, I order stat ABG and chest x-ray lactic acid, CBC stat, discussed with respiratory his saturation dropped to 82 on room air while she was trying to get the ABG He is not able to give any history barely catching his breath with the BiPAP Later on ABG came back positive for pH 7.24, PCO2 71, PO2 46 I transfer patient to ICU and called stat college associate Dr. Velázquez who agreed to monitor the patient in case he needed intubation Critical care time 50 minutes A/P: 1. Acute respiratory failure, COPD: Improved. Now on oxygen per nasal cannula. Occasionally using BiPAP, but less often now. Continue bronchodilators, Symbicort, Solu-Medrol. 2. Acute metabolic encephalopathy: Secondary to renal failure. Mental status is improving. 3. Cardiomyopathy: Echocardiogram showed ejection fraction of 20%. AICD in place. Continue Coreg. Appreciate cardiology recommendations. 4. Acute kidney injury superimposed on chronic kidney disease, unknown stage: Appreciate nephrology recommendations. Creatinine has improved, but remains elevated. Patient did require short-term hemodialysis, which is on hold now as his kidney function is improving. Catheter removed yesterday. Recheck labs in the morning. 5. Anemia, likely secondary to chronic disease: H&H are stable. Recheck labs in the morning. 6. UTI: Urine culture growing ESBL positive Klebsiella. Appreciate infectious disease recommendations. Continue IV antibiotics. 7. DVT prophylaxis: SCDs, heparin. 8. GI prophylaxis: Pepcid. Eric Fine MD November 04, 2017 14:59
--- NOTE | 2017-11-04 17:34 | HHI.CCPN ---
Subjective Remarks/Hospital Course 10/26: This is a 56-year-old male who presents to the emergency department for altered mental status and not feeling well. The patient is quite altered and cannot provide any reliable history, and is only mumbling incoherently. He is protecting his airway and on room air, but cannot provide any additional information. Per the emergency department reports and [facility] reports, he has a history of hepatitis B, hepatitis C, COPD, chronic kidney disease of unknown stage, hypertension, CHF. In the emergency department he was found to have a creatinine of 5.08, BUN 65, potassium 7.3, sodium 135. He is afebrile with a normal white count. He is anemic with a hemoglobin of 9.2. Past visits would suggest his baseline creatinine to be between 2.3 and 3.09. He does have a urinalysis which is significant for pyuria with proteinuria and a large amount of bacteria suggestive of a urinary tract infection. On-call yarn salvager was contacted due to the hyperkalemia and recommended medical management including insulin, D50, Kayexalate, bicarbonate and serial electrolyte's and recommended against emergent dialysis at this time. No additional information is available from the patient. The patient has been in the ICU for acute renal failure with life-threatening electrolyte abnormalities. Review systems is unobtainable due to his clinical condition. The remainder of the history is obtained from review of the medical record. 10/27: Patient seen earlier this a.m., remains lethargic but arousable with periods of agitation. Hemodialysis catheter was placed emergently at bedside and nephrology was consulted for dialysis. Patient is arousable, mumbles words , knows his name but he is not able to provide any history. Urine output is minimal. No bowel movement yet post Kayexalate. ROS: -Unobtainable due to patient's mental status. 10/28 Patient s/p emergent HD yesterday for hyperkalemia K 5.2 this morning from 7.3 on arrival. On BIPAP 18/5 with 30 %FIO2. On Precedex drip for agitation. 10/29 No events overnight. Off Precedex drip. Remains on BIPAP . Afebrile. Awake and alert. s/p HD yesterday with removal 3L. 10/30 Patient had 6 runs nonsustained Vtach ( asymptomatic) For HD today. 10/31 No events overnight, patient is lying in bed in NAD. Afebrile. 11/04: Critical care he consulted by Dr. Sauceda for worsening respiratory status. ABG done on the floor revealed PCO2 in the 70s with respiratory distress. Patient was transferred to the ICU and placed on BiPAP with full facemask. I evaluated the patient shortly following his arrival to the ICU. At that time he was drowsy, easily arousable, on BiPAP with full facemask. He was also noted to be hyperkalemic with a potassium of 5.7 for which I initiated treatment with glucose/insulin/bicarb/Kayexalate. I spoke with Dr. Ga who was there to evaluate patient as well. Awaiting ABG on BiPAP. Objective Vital Signs Date Time Temp Pulse Resp B/P (MAP) Pulse Ox O2 Delivery O2 Flow Rate FiO2 11/04/17 14:00 86 11/04/17 13:52 97 35 11/04/17 11:50 20 142/92 (109) 11/04/17 11:21 Bi-Pap 11/04/17 11:16 97.2 11/04/17 07:49 3.00 Intake and Output 11/04/17 11/04/17 11/05/17 08:00 16:00 00:00 Intake Total 530 ml 120 ml Output Total 650 ml Balance -120 ml 120 ml Result Diagram: 11/04/17 1312 11/04/17 1312 Other Results Laboratory Tests Test 11/04/17 12:13 11/04/17 16:45 Blood Gas Puncture Site RT RADIAL RT RADIAL Blood Gas Patient Temperature 98.6 98.6 Blood Gas HCO3 30 mmol/L (22-26) 30 mmol/L (22-26) Blood Gas Base Excess 3.0 mmol/L (-2-2) 3.3 mmol/L (-2-2) Blood Gas Oxygen Saturation 75 % (90-100) 90 % (90-100) Arterial Blood pH 7.25 (7.380-7.420) 7.23 (7.380-7.420) Arterial Blood Partial Pressure CO2 71 mmHg (38-42) 75 mmHg (38-42) Arterial Blood Partial Pressure O2 46 mmHg (61-120) 76 mmHg (61-120) Arterial Blood Oxygen Content 9.7 Vol % (12.0-20.0) 11.2 Vol % (12.0-20.0) Arterial Blood Carboxyhemoglobin 2.0 % (0-4) 2.2 % (0-4) Arterial Blood Methemoglobin 1.4 % (0-2) 1.5 % (0-2) Blood Gas Hemoglobin 9.2 G/DL (12.0-16.0) 8.7 G/DL (12.0-16.0) Oxygen Delivery Device ROOM AIR bipap Blood Gas Inspired Oxygen 21 % 25 % Blood Gas Ventilator Setting IPAP+15/EPAP+5 Imaging Last Impressions Chest X-Ray 10/26/17 1425 Signed Impressions: Service Date/Time: Thursday, October 26, 2017 14:31 - CONCLUSION: Prominent cardiac silhouette. Pericardial effusion cannot be entirely excluded. No failure Sung Phillips MD FACR Renal Ultrasound 10/26/17 0000 Signed Impressions: Service Date/Time: Thursday, October 26, 2017 20:06 - CONCLUSION: 1. There is some increased echogenicity of the renal parenchyma suggestive of chronic medical renal disease. 2. No evidence of hydronephrosis. 3. Small 1.1 cm cyst upper pole left kidney. Giuseppe Street MD Procedures 10/27/17 right femoral Vas-Cath placement Objective Remarks GENERAL: Middle-aged gentleman lying in bed, on BiPAP with full facemask HEENT: Normocephalic. Atraumatic. Pupils are equal and reactive, sclerae are anicteric. Dry mucous NECK: Trachea is midline. There is no JVD CHEST: On BiPAP with full facemask, coarse breath sounds bilateral, no wheezes CARDIOVASCULAR: Regular S1 and S2. No murmurs appreciated. ABDOMEN: Soft, nontender, nondistended. No guarding. Bowel sounds are present. No hepatomegaly or splenomegaly appreciated MUSCULOSKELETAL: 2-3+ lower extremity edema. Pulses are palpable. Chronic venous stasis changes NEUROLOGICAL: Drowsy, easily arousable. On BiPAP with full facemask moves all extremities. Pupils are equal and reactive A/P Assessment and Plan Plan by systems: Neurologic: Acute metabolic encephalopathy Uremic encephalopathy History of illicit substance use Monitor neuro status Avoid long-acting sedatives UDS + Opiates on admission Respiratory: Acute hypercapnic respiratory failure COPD Continue with oxygen keep sats >92% Bronchodilators,Decrease solumederol 40mg Q8, Symbicort 160/4.5 Q12 NIPPV PRN for resp distress/elevated PCO2, Cardiovascular: Coreg 6.25mg BID, add Hydralazine 25mg Q8 Monitor HR and BP keep MAP>65mmHg Echo showed EF 20%, mod-severe pulm HTN PAP 65mmHg Cards eval Renal: Acute kidney injury superimposed on chronic renal insufficiency, unknown stage - likely secondary to urinary tract infection Urinary tract infection Monitor renal function, I/O's, avoid nephrotoxins Off hemodialysis after first few sessions per Dr. Ga. Ordered glucose/ insulin/calcium/Kayexalate for hyperkalemia. Renal- Dr. Ga Renal US: There is increased echogenicity of the renal parenchyma suggestive of chronic medical renal disease. No evidence of hydronephrosis. Small 1.1 cm cyst upper pole left kidney. FEN/GI: PO diet as tolerated On Pepcid 10mg IV Q12 Heme/ID: Anemia, unknown cause, likely secondary to chronic disease Urinary tract infection, Monitor CBC urine culture : ESBL Kleb Continue Invanz per ID. Monitor for signs of infections ( Fever, WBC) Endocrine: SSI with accuchecks Prophylaxis: GI Prophylaxis Pepcid DVT Prophylaxis -- SCDs Subcu heparin Lines: Peripheral IVs Condition critical. Patient placed on BiPAP however if respiratory status declines despite BiPAP may require endotracheal intubation. Time spent on critical care excluding procedures 40 minutes Jethro Matthew MD November 04, 2017 17:34
--- NOTE | 2017-11-04 18:30 | HHI.PR ---
Addendum to Inpatient Note Additional Information dw Dr Matthew pt is on BIPAP after he developped resp failure this am CD4 14 CD8 34 on high dose sterroids Rec's: BNP CT chest will start PCP and MAC profilaxis Gabby Drew MD November 04, 2017 18:30
[2017-11-05] VITALS (20 sets, daily range): BP systolic 150–190; BP diastolic 96–121; PULSE 88–110; RESP 14–21; TEMP 97.4–99.2; O2SAT 93–100
[2017-11-05] MEDS: methylPREDNISolone SOD SUCC 40 MG/1 ML VIAL IV PUSH SCH ×3 (01:52→16:37)
[2017-11-05] MEDS: CHLORHEXIDINE GLUCONATE 2 % 1 PACK (2 CLOTHS) TOP SCH (04:00)
[2017-11-05] MEDS: INSULIN NovoLIN REGULAR SUPPLEMENTAL SCALE SQ SCH ×6 (04:00→20:00)
[2017-11-05] MEDS: cefTAZidime/AVIBACTAM INJ 0.94 GM in SODIUM CHLORIDE 0.9% INJ 50 ML IV SCH (05:02)
[2017-11-05] MEDS: hydrALAZINE HCL 25 MG TAB PO SCH ×3 (05:02→21:27)
[2017-11-05] MEDS: FAMOTIDINE 20 MG TAB PO SCH ×2 (08:21→21:27)
[2017-11-05] MEDS: CARVEDILOL 12.5 MG TAB PO SCH ×2 (08:22→21:27)
[2017-11-05] MEDS: BUDESONIDE-FORMOTEROL 160/4.5 MCG INHALER INH SCH ×2 (08:22→23:04)
[2017-11-05] MEDS: SULFAMETHOXAZOLE-TRIMETHOPRIM DS 800-160 MG TAB PO SCH (08:28)
[2017-11-05] MEDS ORDERED: AZITHROMYCIN 600 MG TAB PO ONE (09:00)
[2017-11-05] MEDS: SODIUM CHLORIDE 0.9% FLUSH 10 ML FLUSH IV FLUSH SCH ×2 (09:00→21:28)
[2017-11-05] MEDS ORDERED: LORazepam 2 MG/ML VIAL ONE (09:10)
[2017-11-05] MEDS: MORPHINE SULFATE 4 MG/ML INJ IV PUSH PRN ×2 (09:22→21:27)
[2017-11-05 09:23] LABS: AUTOMATED NEUTROPHIL # 5.8 TH/MM3 (1.8-7.7); BASOPHIL % 0.5 % (0.0-2.0); HEMATOCRIT 30.3 % (39.0-51.0); HEMOGLOBIN 9.2 GM/DL (13.0-17.0); LYMPH % 2.3 % (9.0-44.0); LYMPHOCYTE # 0.1 TH/MM3 (1.0-4.8); MEAN CELL VOLUME 83.5 FL (80.0-100.0); MEAN CORPUSCULAR HEMOGLOBIN 25.2 PG (27.0-34.0); MEAN CORPUSCULAR HGB CONC 30.2 % (32.0-36.0); MEAN PLATELET VOLUME 6.9 FL (7.0-11.0); MONO % 6.7 % (0.0-8.0); MONOCYTE # 0.4 TH/MM3 (0-0.9); NEUT % 90.5 % (16.0-70.0); PLATELET COUNT 264 TH/MM3 (150-450); RED BLOOD COUNT 3.63 MIL/MM3 (4.50-5.90); RED CELL DISTRIBUTION WIDTH 19.9 % (11.6-17.2); WHITE BLOOD COUNT 6.4 TH/MM3 (4.0-11.0)
[2017-11-05] MEDS ORDERED: LORazepam 2 MG/ML VIAL IV PUSH ONE (09:30)
[2017-11-05 10:23] LABS: STOMATOCYTES 1+ (NORMAL)
[2017-11-05 10:24] LABS: KERATOCYTES OCC (NORMAL)
[2017-11-05 10:40] LABS: BICARBONATE 29.3 MEQ/L (21.0-32.0); CALCIUM 8.5 MG/DL (8.5-10.1); CREATININE 2.53 MG/DL (0.60-1.30)
[2017-11-05] MEDS: HEPARIN SODIUM - SQ 10,000 UNITS/ML VIAL SQ SCH ×2 (11:00→21:28)
--- NOTE | 2017-11-05 15:04 | HHI.CCPN ---
Subjective Remarks/Hospital Course 10/26: This is a 56-year-old male who presents to the emergency department for altered mental status and not feeling well. The patient is quite altered and cannot provide any reliable history, and is only mumbling incoherently. He is protecting his airway and on room air, but cannot provide any additional information. Per the emergency department reports and [facility] reports, he has a history of hepatitis B, hepatitis C, COPD, chronic kidney disease of unknown stage, hypertension, CHF. In the emergency department he was found to have a creatinine of 5.08, BUN 65, potassium 7.3, sodium 135. He is afebrile with a normal white count. He is anemic with a hemoglobin of 9.2. Past visits would suggest his baseline creatinine to be between 2.3 and 3.09. He does have a urinalysis which is significant for pyuria with proteinuria and a large amount of bacteria suggestive of a urinary tract infection. On-call interventional radiology rn was contacted due to the hyperkalemia and recommended medical management including insulin, D50, Kayexalate, bicarbonate and serial electrolyte's and recommended against emergent dialysis at this time. No additional information is available from the patient. The patient has been in the ICU for acute renal failure with life-threatening electrolyte abnormalities. Review systems is unobtainable due to his clinical condition. The remainder of the history is obtained from review of the medical record. 10/27: Patient seen earlier this a.m., remains lethargic but arousable with periods of agitation. Hemodialysis catheter was placed emergently at bedside and nephrology was consulted for dialysis. Patient is arousable, mumbles words , knows his name but he is not able to provide any history. Urine output is minimal. No bowel movement yet post Kayexalate. ROS: -Unobtainable due to patient's mental status. 10/28 Patient s/p emergent HD yesterday for hyperkalemia K 5.2 this morning from 7.3 on arrival. On BIPAP 18/5 with 30 %FIO2. On Precedex drip for agitation. 10/29 No events overnight. Off Precedex drip. Remains on BIPAP . Afebrile. Awake and alert. s/p HD yesterday with removal 3L. 10/30 Patient had 6 runs nonsustained Vtach ( asymptomatic) For HD today. 10/31 No events overnight, patient is lying in bed in NAD. Afebrile. 11/04: Critical care he consulted by Dr. Sauceda for worsening respiratory status. ABG done on the floor revealed PCO2 in the 70s with respiratory distress. Patient was transferred to the ICU and placed on BiPAP with full facemask. I evaluated the patient shortly following his arrival to the ICU. At that time he was drowsy, easily arousable, on BiPAP with full facemask. He was also noted to be hyperkalemic with a potassium of 5.7 for which I initiated treatment with glucose/insulin/bicarb/Kayexalate. I spoke with Dr. Ga who was there to evaluate patient as well. Awaiting ABG on BiPAP. Subjective: 11/05 Bipap titrated up to 20/5 due to hypercapnia on morning ABG with pH 7.23/ PaCO2 of 74/PaO2 of 92 on 15/ and 30%. He is alert and interactive currently. He request something for anxiety because he states he is quite claustrophobic with BiPAP mask in place. Specifically he request morphine and Ativan. He is orthopneic and cannot comply with CT scan ordered per infectious disease. Objective Vital Signs Date Time Temp Pulse Resp B/P (MAP) Pulse Ox O2 Delivery O2 Flow Rate FiO2 11/05/17 14:00 96 11/05/17 13:29 98 30 11/05/17 12:00 98.1 21 159/121 (134) 11/05/17 07:00 Bi-Pap 3.00 Intake and Output 11/05/17 11/05/17 11/06/17 08:00 16:00 00:00 Intake Total 480 ml Balance 480 ml Result Diagram: 11/05/17 0902 11/05/17 0902 Other Results Laboratory Tests Test 11/04/17 16:45 11/05/17 05:39 Blood Gas Puncture Site RT RADIAL RT RADIAL Blood Gas Patient Temperature 98.6 98.6 Blood Gas HCO3 30 mmol/L (22-26) 30 mmol/L (22-26) Blood Gas Base Excess 3.3 mmol/L (-2-2) 3.4 mmol/L (-2-2) Blood Gas Oxygen Saturation 90 % (90-100) 93 % (90-100) Arterial Blood pH 7.23 (7.380-7.420) 7.23 (7.380-7.420) Arterial Blood Partial Pressure CO2 75 mmHg (38-42) 74 mmHg (38-42) Arterial Blood Partial Pressure O2 76 mmHg (61-120) 92 mmHg (61-120) Arterial Blood Oxygen Content 11.2 Vol % (12.0-20.0) 11.6 Vol % (12.0-20.0) Arterial Blood Carboxyhemoglobin 2.2 % (0-4) 2.3 % (0-4) Arterial Blood Methemoglobin 1.5 % (0-2) 1.4 % (0-2) Blood Gas Hemoglobin 8.7 G/DL (12.0-16.0) 8.8 G/DL (12.0-16.0) Oxygen Delivery Device bipap BIPAP Blood Gas Ventilator Setting IPAP+15/EPAP+5 1PAP 15/EPAP 5 Blood Gas Inspired Oxygen 25 % 30 % Imaging Last Impressions Chest X-Ray 10/26/17 1425 Signed Impressions: Service Date/Time: Thursday, October 26, 2017 14:31 - CONCLUSION: Prominent cardiac silhouette. Pericardial effusion cannot be entirely excluded. No failure Sung Phillips MD FACR Renal Ultrasound 10/26/17 0000 Signed Impressions: Service Date/Time: Thursday, October 26, 2017 20:06 - CONCLUSION: 1. There is some increased echogenicity of the renal parenchyma suggestive of chronic medical renal disease. 2. No evidence of hydronephrosis. 3. Small 1.1 cm cyst upper pole left kidney. Giuseppe Street MD Procedures 10/27/17 right femoral Vas-Cath placement Objective Remarks GENERAL: Middle-aged gentleman sitting up in bed, alert and communicating with BIPAP. HEENT: Normocephalic. Atraumatic. Pupils are equal and reactive, sclerae are anicteric. Full BiPAP mask in place. NECK: Trachea is midline. There is no JVD CHEST: On BiPAP with full facemask, diminished breath sounds bilaterally, no wheeze. CARDIOVASCULAR: Regular S1 and S2. No murmurs appreciated. ABDOMEN: Soft, nontender, nondistended. No guarding. Bowel sounds are present. No hepatomegaly or splenomegaly appreciated MUSCULOSKELETAL: Chronic nonpitting edema, 3+ down the length of the right leg. Left lower extremity is about 1+ edema. NEUROLOGICAL: Awake and alert, spontaneously moving all extremities. Communicates verbally expressing needs while he is on BiPAP. A/P Assessment and Plan Plan by systems: Neurologic: Acute metabolic encephalopathy Uremic encephalopathy History of illicit substance use Monitor neuro status Avoid long-acting sedatives UDS + Opiates on admission Respiratory: Acute hypercapnic respiratory failure COPD Increase inspiratory pressure on BiPAP to address hypercapnia and repeat ABG is improved. Bronchodilators, continue solumederol 40mg Q8, Symbicort 160/4.[address] chest has been ordered per infectious disease but he is orthopneic and unable to obtain at this time, could proceed with scan if he requires intubation. Lasix 40 mg IV Cardiovascular: Chronic systolic heart failure Hypertension Pulmonary hypertension Coreg 6.25mg BID, add Hydralazine 25mg Q8 Monitor HR and BP keep MAP>65mmHg Echo showed EF 20%, mod-severe pulm HTN PAP 65mmHg Renal: Acute kidney injury superimposed on chronic renal insufficiency, unknown stage - likely secondary to urinary tract infection Urinary tract infection Monitor renal function, I/O's, avoid nephrotoxins Off hemodialysis after first few sessions per Dr. Ga. Renal- Dr. Ga Renal US: There is increased echogenicity of the renal parenchyma suggestive of chronic medical renal disease. No evidence of hydronephrosis. Small 1.1 cm cyst upper pole left kidney. FEN/GI: PO diet as tolerated On Pepcid 10mg IV Q12 Heme/ID: Anemia, unknown cause, likely secondary to chronic disease Urinary tract infection, HIV Low CD4 (14) Monitor CBC urine culture : ESBL Kleb Continue Invanz per ID. Monitor for signs of infections ( Fever, WBC) On PCP and MAC prophylaxis per ID. Bactrim 1 tab p.o. daily, azithromycin 1200 mg p.o. weekly. Endocrine: SSI with accuchecks Prophylaxis: GI Prophylaxis Pepcid DVT Prophylaxis -- SCDs Subcu heparin Lines: Peripheral IVs Patient remains Critically ill with hypercapnic respiratory failure despite BiPAP. He required adjustment of BiPAP to help avoid immediate need for intubation. He still remains at high risk for further decompensation, respiratory failure intubation. If he is intubated we will proceed with CT chest and with respiratory cultures. Discussed with Dr. Drew Critical care time 35 minutes exclusive of separately billable procedures. Bria Blackman MD November 05, 2017 15:04
--- NOTE | 2017-11-05 15:25 | HHI.NPPN ---
Subjective General Problems: Anemia, Edema, Hypertension Renal Failure: Stage V History of Present Illness 56-year-old male with a past medical history of hypertension, history of HIV, chronic lymphedema of the legs, diabetes mellitus, sleep apnea, ischemic heart disease, was brought to the hospital with altered mental status and not feeling well. I was called to see the patient because of elevated BUN and creatinine and high potassium. The patient has known history of chronic kidney disease and patient was seen by me when he was here in March last year. At that time, he had creatinine in the range of 2.3-3.0 and he was discharged with a creatinine of 2.5 and now he came with a creatinine of 5.0 and also potassium of 7.3. Additional Remarks On bipap, patient minimally responding to questions. (Sameera Rudd) Review of Systems General General Remarks unable to do ROS secondary to mental status (Sameera Rudd) Objective Data Data Vital Signs Date Time Temp Pulse Resp B/P (MAP) Pulse Ox O2 Delivery O2 Flow Rate FiO2 11/05/17 14:00 96 11/05/17 13:29 98 30 11/05/17 12:00 98.1 92 21 159/121 (134) 97 11/05/17 12:00 96 11/05/17 10:00 95 11/05/17 09:27 12 11/05/17 08:00 88 11/05/17 08:00 97.4 110 14 190/115 (140) 96 11/05/17 07:10 100 30 11/05/17 07:00 Bi-Pap 3.00 30 11/05/17 06:00 96 11/05/17 05:49 100 Bi-Pap 30 11/05/17 04:28 98 BiPAP 11/05/17 04:26 97 25 11/05/17 04:00 99 11/05/17 04:00 98.2 99 17 155/98 (117) 96 11/05/17 02:00 103 11/05/17 00:52 100 BiPAP 11/05/17 00:50 100 25 11/05/17 00:00 97 11/05/17 00:00 99.2 97 17 171/98 (122) 93 11/04/17 22:00 102 11/04/17 20:00 99.4 90 15 155/105 (122) 99 11/04/17 20:00 99 Bi-Pap 25 11/04/17 20:00 90 11/04/17 19:00 99 Bi-Pap 35 11/04/17 18:00 82 11/04/17 16:00 97.1 82 16 156/101 (119) 11/04/17 16:00 85 (Sameera Rudd) -: 11/05/17 0902 11/05/17 0902 Imaging Last Impressions Chest X-Ray 11/04/17 0000 Signed Impressions: Service Date/Time: Saturday, November 04, 2017 12:56 - CONCLUSION: Increasing basilar opacity characteristic of bilateral effusions and underlying airspace disease. Moderate cardiomegaly ICD Ignacio Ndiaye MD Renal Ultrasound 10/26/17 0000 Signed Impressions: Service Date/Time: Thursday, October 26, 2017 20:06 - CONCLUSION: 1. There is some increased echogenicity of the renal parenchyma suggestive of chronic medical renal disease. 2. No evidence of hydronephrosis. 3. Small 1.1 cm cyst upper pole left kidney. Giuseppe Street MD (Sameera Rudd) Physical Exam General Appearance Remarks on Bipap minimally responsive (Sameera Rudd) Eyes Eye Exam: Pupils Equal (Sameera Rudd) Throat Throat Exam: Oral Mucosa [place] & Moist (Sameera Rudd) Pulmonary Resp Exam: Breath Sounds Equal, No Distress, Decreased Bases, Diminished Breath Sounds (Sameera Rudd) Cardiology CV Exam: Regular (Sameera Rudd) Gastrointestinal/Abdomen GI Exam: Soft, Non-Tender, Bowel Sounds Present, Distended (Sameera Rudd) Integumentary Skin Exam: Clear, Warm (Sameera Rudd) Extremeties Extremities Exam: Moderate Edema Extremeties Remarks lymphedema right leg (Sameera Rudd) Neurologic Neuro Exam: Alert, Awake (Sameera Rudd) Psychiatric Psych Exam: Appropriate Responses (Sameera Rudd) Assessment/Plan Assessment Summary: Anemia of CKD, CKD Stage V Electrolyte Assessment: Hyperkalemia Problem List: (1) Stage 5 chronic kidney disease ICD Codes: N18.5 - Chronic kidney disease, stage 5 (2) DM (diabetes mellitus) ICD Codes: E11.9 - DM (diabetes mellitus) Status: Chronic (3) Chronic systolic CHF (congestive heart failure) ICD Codes: I50.22 - Chronic systolic CHF (congestive heart failure) Status: Chronic (4) Hyperkalemia ICD Codes: E87.5 - Hyperkalemia Status: Acute (5) Hypertension ICD Codes: I10 - Hypertension Status: Chronic (6) COPD exacerbation ICD Codes: J44.1 - COPD exacerbation Status: Acute (7) Respiratory distress ICD Codes: R06.00 - Respiratory distress Status: Acute (8) HIV (human immunodeficiency virus infection) ICD Codes: Z21 - HIV (human immunodeficiency virus infection) Status: Chronic (9) PNA (pneumonia) ICD Codes: J18.9 - PNA (pneumonia) Status: Acute (10) Hepatitis C ICD Codes: B19.20 - Hepatitis C Status: Chronic Plan . Patient has advance stage 4 chronic kidney disease. Admitted with elevated BUN and Creatinine and high K level. Started on HD, last was on Saturday10/28/17 Urinary output of 450cc over 24 hours Creatinine has been improvin.6 -> 3.2 -> 2.9 ->2.65 Keep strict I+O's. Will continue to hold hemodialysis Follow the urine out put and BMP. Hyperkalemia improved today at 5.0 treatment was given yesterday. [place] [facility] [place] AM May consider for AV access as patient stabilizes. (Sameera Rudd) Plan Patient seen and examined, agree with above. Creatinine stable, on BIPAP. Weaning as per CCM. (Millicent Ga MD) Sameera Rudd November 05, 2017 15:25 Millicent Ga MD November 07, 2017 00:09
[2017-11-05] MEDS: CEFTAZIDIME IV SCH (16:56)
[2017-11-05] MEDS: AVIBACTAM IV SCH (16:56)
[2017-11-05] MEDS: NS IV SCH (16:56)
--- NOTE | 2017-11-05 20:04 | HHI.IDPN ---
Subjective Subjective Remarks pt is on BIPAP after he developped resp failure yday Very orthopneic Afebrile C/o back pain Antibiotics avicaz Lines Line sites ok Past Medical History reviewed Allergies: Coded Allergies: benazepril (Unverified Allergy, Severe, SWELLING MOUTH ,TONGUE, 03/20/17) captopril (Unverified Allergy, Severe, SWELLING MOUTH ,TONGUE, 03/20/17) enalaprilat (Unverified Allergy, Severe, SWELLING MOUTH ,TONGUE, 03/20/17) fosinopril (Unverified Allergy, Severe, SWELLING MOUTH ,TONGUE, 03/20/17) lisinopril (Unverified Allergy, Severe, SWELLING MOUTH ,TONGUE, 03/20/17) quinapril (Unverified Allergy, Severe, SWELLING MOUTH ,TONGUE, 03/20/17) Objective . Vital Signs Date Time Temp Pulse Resp B/P (MAP) Pulse Ox O2 Delivery O2 Flow Rate FiO2 11/05/17 18:00 94 11/05/17 16:41 100 30 11/05/17 16:00 96 11/05/17 16:00 97.8 90 16 150/96 (114) 100 11/05/17 14:00 96 11/05/17 13:29 98 30 11/05/17 12:00 98.1 92 21 159/121 (134) 97 11/05/17 12:00 96 11/05/17 10:00 95 11/05/17 09:27 12 11/05/17 08:00 88 11/05/17 08:00 97.4 110 14 190/115 (140) 96 11/05/17 07:10 100 30 11/05/17 07:00 Bi-Pap 3.00 30 11/05/17 06:00 96 11/05/17 05:49 100 Bi-Pap 30 11/05/17 04:28 98 BiPAP 11/05/17 04:26 97 25 11/05/17 04:00 99 11/05/17 04:00 98.2 99 17 155/98 (117) 96 11/05/17 02:00 103 11/05/17 00:52 100 BiPAP 11/05/17 00:50 100 25 11/05/17 00:00 97 11/05/17 00:00 99.2 97 17 171/98 (122) 93 11/04/17 22:00 102 11/04/17 20:00 99.4 90 15 155/105 (122) 99 11/04/17 20:00 99 Bi-Pap 25 11/04/17 20:00 90 11/05/17 11/05/17 11/06/17 14:59 22:59 06:59 Intake Total 781 ml Output Total 702 ml Balance 79 ml Intake Oral 650 ml IV Total 131 ml Output Urine Total 700 ml Stool Total 2 ml . Laboratory Tests Test 11/04/17 13:12 11/05/17 09:02 White Blood Count 4.7 TH/MM3 6.4 TH/MM3 Red Blood Count 3.55 MIL/MM3 3.63 MIL/MM3 Hemoglobin 9.0 GM/DL 9.2 GM/DL Hematocrit 30.2 % 30.3 % Mean Corpuscular Volume 85.0 FL 83.5 FL Mean Corpuscular Hemoglobin 25.3 PG 25.2 PG Mean Corpuscular Hemoglobin Concent 29.7 % 30.2 % Red Cell Distribution Width 19.6 % 19.9 % Platelet Count 185 TH/MM3 264 TH/MM3 Mean Platelet Volume 7.0 FL 6.9 FL Neutrophils (%) (Auto) 92.8 % 90.5 % Lymphocytes (%) (Auto) 2.3 % 2.3 % Monocytes (%) (Auto) 3.8 % 6.7 % Eosinophils (%) (Auto) 0.1 % 0.0 % Basophils (%) (Auto) 1.0 % 0.5 % Neutrophils # (Auto) 4.3 TH/MM3 5.8 TH/MM3 Lymphocytes # (Auto) 0.1 TH/MM3 0.1 TH/MM3 Monocytes # (Auto) 0.2 TH/MM3 0.4 TH/MM3 Eosinophils # (Auto) 0.0 TH/MM3 0.0 TH/MM3 Basophils # (Auto) 0.0 TH/MM3 0.0 TH/MM3 CBC Comment AUTO DIFF AUTO DIFF Differential Total Cells Counted 100 Neutrophils % (Manual) 92 % Band Neutrophils % 1 % Lymphocytes % 6 % Monocytes % 1 % Neutrophils # (Manual) 4.4 TH/MM3 Nucleated Red Blood Cells 2 /100 WBC Differential Comment FINAL DIFF MANUAL AUTO DIFF CONFIRMED Platelet Estimate NORMAL Platelet Morphology Comment NORMAL Basophilic Stippling MOD FAINT Stomatocytes 1+ Keratocytes OCC Laboratory Tests Test 11/04/17 13:12 11/05/17 09:02 Blood Urea Nitrogen 78 MG/DL 78 MG/DL Creatinine 2.65 MG/DL 2.53 MG/DL Random Glucose 176 MG/DL 161 MG/DL Calcium Level 8.1 MG/DL 8.5 MG/DL Sodium Level 140 MEQ/L 142 MEQ/L Potassium Level 5.7 MEQ/L 5.0 MEQ/L Chloride Level 103 MEQ/L 103 MEQ/L Carbon Dioxide Level 30.9 MEQ/L 29.3 MEQ/L Anion Gap 6 MEQ/L 10 MEQ/L Estimat Glomerular Filtration Rate 30 ML/MIN 32 ML/MIN Lactic Acid Level 1.0 mmol/L Imaging Last Impressions Chest X-Ray 11/04/17 0000 Signed Impressions: Service Date/Time: Saturday, November 04, 2017 12:56 - CONCLUSION: Increasing basilar opacity characteristic of bilateral effusions and underlying airspace disease. Moderate cardiomegaly ICD Ignacio Ndiaye MD Renal Ultrasound 10/26/17 0000 Signed Impressions: Service Date/Time: Thursday, October 26, 2017 20:06 - CONCLUSION: 1. There is some increased echogenicity of the renal parenchyma suggestive of chronic medical renal disease. 2. No evidence of hydronephrosis. 3. Small 1.1 cm cyst upper pole left kidney. Giuseppe Street MD Physical Exam CONSTITUTIONAL/GENERAL: This is an obese middle aged male patient, in no apparent distress. Pt is orthopneic In moderated resp distress TUBES/LINES/DRAINS: SKIN: No jaundice, rashes, or lesions. CARDIOVASCULAR: Regular rate and rhythm without murmurs, gallops, or rubs. No JVD. Peripheral pulses symmetric. RESPIRATORY/CHEST: Symmetric, unlabored respirations. Clear to auscultation. Breath sounds markedly diominishe d bilaterally. GASTROINTESTINAL: Abdomen soft, non-tender, nondistended. No hepato-splenomegaly , or palpable masses. No guarding. Bowel sounds present. GENITOURINARY: Without palpable bladder distension. Wang catheter in place with cloudy urine MUSCULOSKELETAL: Extremities without clubbing, cyanosis, Non pitting chronic appearing 3+ edema of RLE and 1+ LLE edema. No cellulitic changes No joint tenderness or effusion noted. No calf tenderness. No mottling or clubbing. LYMPHATICS: No palpable cervical or supraclavicular adenopathy. NEUROLOGICAL: fully awake and alert coherent fillows commands PSYCHIATRIC: tearful Assessment & Plan Remarks HIV disease, Rx unknown ( 2 drugs with Norvir listed as home medx) CD4 14 CD8 34 Presentdd with prominent metabolic encephalopathy - resolving UTI, ESBL+ E.coli CRE kleb pneumo UTI ARF, hyperkalemia, was on HD - creat is stable @ 3.22 today, non oliguric off HD now diarrhea, C.diff neg COPD/ CHF exacerbation Impending resp failure, might need intuabtion Rec's: BNP CT chest when feasible cont PCP and MAC profilaxis cont Avycaz (ASP criteria: CRE Kleb pneumo) x 14 days - dose needs to be adjusted per improv ing GFR Follow cultures follow clinically If intubated will send all resp clx dw Dr Yehuda Drew,Gabby Givens MD November 05, 2017 20:04
[2017-11-05] MEDS ORDERED: FUROSEMIDE 40 MG/4 ML VIAL IV PUSH ONE (23:15)
[2017-11-06] VITALS (23 sets, daily range): BP systolic 142–166; BP diastolic 92–109; PULSE 81–120; RESP 15–26; TEMP 97.7–99; O2SAT 95–100
[2017-11-06] MEDS: methylPREDNISolone SOD SUCC 40 MG/1 ML VIAL IV PUSH SCH ×4 (00:18→23:50)
[2017-11-06] MEDS: NS IV SCH ×4 (00:34→23:50)
[2017-11-06] MEDS: CEFTAZIDIME IV SCH ×4 (00:34→23:50)
[2017-11-06] MEDS: AVIBACTAM IV SCH ×4 (00:34→23:50)
[2017-11-06] MEDS: MORPHINE SULFATE 4 MG/ML INJ IV PUSH PRN ×6 (01:46→23:51)
[2017-11-06] MEDS: RESP: ALBUTEROL 2.5 MG/IPRATROPIUM 0.5 MG NEB (PRN) INH (02:52)
[2017-11-06] MEDS: INSULIN NovoLIN REGULAR SUPPLEMENTAL SCALE SQ SCH ×6 (04:00→20:00)
[2017-11-06] MEDS: CHLORHEXIDINE GLUCONATE 2 % 1 PACK (2 CLOTHS) TOP SCH (04:00)
--- NOTE | 2017-11-06 04:34 | RADRPT ---
EXAM DATE: 11/06/2017 4:31 AM EDT AGE/SEX: 56 years / Male INDICATIONS: Short of breath. CLINICAL DATA: This is the patient's subsequent encounter. Patient reports that signs and symptoms h ave been present for 4 - 6 days and indicates a pain score of 0/10. MEDICAL/SURGICAL HISTORY: . Chronic obstructive pulmonary disease. Congestive heart failure. 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 COMPARISON: [facility] [place], 10/26/2017. . FINDINGS: A single AP portable semierect view of the chest was obtained and again demonstrates moderate cardiom egaly. No confluent infiltrates are identified. The left costophrenic angle was cut off the exam. The transvenous pacer remains in place. Overlying electrocardiogram leads are noted. CONCLUSION: No significant change. Moderate cardiomegaly remains. Electronically signed by: Dimitri Still MD 11/06/2017 4:33 AM EDT
[2017-11-06] MEDS: hydrALAZINE HCL 25 MG TAB PO SCH ×3 (06:10→20:50)
[2017-11-06] MEDS: CARVEDILOL 12.5 MG TAB PO SCH ×2 (08:11→20:50)
[2017-11-06] MEDS: FAMOTIDINE 20 MG TAB PO SCH ×2 (08:11→20:50)
[2017-11-06] MEDS: SULFAMETHOXAZOLE-TRIMETHOPRIM DS 800-160 MG TAB PO SCH (08:11)
[2017-11-06] MEDS: SODIUM CHLORIDE 0.9% FLUSH 10 ML FLUSH IV FLUSH SCH ×2 (08:12→20:51)
[2017-11-06] MEDS: BUDESONIDE-FORMOTEROL 160/4.5 MCG INHALER INH SCH ×2 (08:14→20:49)
--- NOTE | 2017-11-06 09:35 | HHI.NPPN ---
Subjective General Problems: Anemia, Edema, Hypertension Renal Failure: Stage V History of Present Illness 56-year-old male with a past medical history of hypertension, history of HIV, chronic lymphedema of the legs, diabetes mellitus, sleep apnea, ischemic heart disease, was brought to the hospital with altered mental status and not feeling well. I was called to see the patient because of elevated BUN and creatinine and high potassium. The patient has known history of chronic kidney disease and patient was seen by me when he was here in March last year. At that time, he had creatinine in the range of 2.3-3.0 and he was discharged with a creatinine of 2.5 and now he came with a creatinine of 5.0 and also potassium of 7.3. Additional Remarks On bipap, very anger because he is hungry this morning. Does not have any complaints other than food. Lasix X 1 given yesterday. (Sameera Rudd) Review of Systems General General Remarks unable to do ROS secondary to mental status (Sameera Rudd) Objective Data Data Vital Signs Date Time Temp Pulse Resp B/P (MAP) Pulse Ox O2 Delivery O2 Flow Rate FiO2 11/06/17 08:00 98.6 87 15 165/107 (126) 97 11/06/17 07:00 98 Bi-Pap 30 11/06/17 06:17 17 11/06/17 06:00 90 11/06/17 04:00 98.0 83 16 159/109 (126) 98 11/06/17 04:00 83 11/06/17 02:58 98 30 11/06/17 02:00 85 11/06/17 00:40 99 30 11/06/17 00:00 81 11/06/17 00:00 97.9 81 17 146/92 (110) 97 11/05/17 22:00 93 11/05/17 21:00 99 30 11/05/17 20:00 103 11/05/17 20:00 98.0 103 17 153/99 (117) 100 11/05/17 19:00 100 Bi-Pap 30 11/05/17 18:00 94 11/05/17 16:41 100 30 11/05/17 16:00 96 11/05/17 16:00 97.8 90 16 150/96 (114) 100 11/05/17 14:00 96 11/05/17 13:29 98 30 11/05/17 12:00 98.1 92 21 159/121 (134) 97 11/05/17 12:00 96 11/05/17 10:00 95 (Sameera Rudd) -: 11/05/17 0902 11/05/17 0902 Imaging Last Impressions Chest X-Ray 11/06/17 0000 Signed Impressions: CONCLUSION: Renal Ultrasound 10/26/17 0000 Signed Impressions: Service Date/Time: Thursday, October 26, 2017 20:06 - CONCLUSION: 1. There is some increased echogenicity of the renal parenchyma suggestive of chronic medical renal disease. 2. No evidence of hydronephrosis. 3. Small 1.1 cm cyst upper pole left kidney. Giuseppe Street MD (Sameera Rudd) Physical Exam General Appearance: Anxious (Sameera Rudd) Eyes Eye Exam: Pupils Equal (Sameera Rudd) Throat Throat Exam: Oral Mucosa [place] & Moist (Sameera Rudd) Pulmonary Resp Exam: Breath Sounds Equal, No Distress, Decreased Bases, Diminished Breath Sounds (Sameera Rudd) Cardiology CV Exam: Regular (Sameera Rudd) Gastrointestinal/Abdomen GI Exam: Soft, Non-Tender, Bowel Sounds Present, Distended (Sameera Rudd) Integumentary Skin Exam: Clear, Warm (Sameera Rudd) Extremeties Extremities Exam: Moderate Edema Extremeties Remarks lymphedema right leg (Sameera Rudd) Neurologic Neuro Exam: Alert, Awake (Sameera Rudd) Psychiatric Psych Exam: Appropriate Responses (Sameera Rudd) Assessment/Plan Assessment Summary: Anemia of CKD, CKD Stage V Electrolyte Assessment: Hyperkalemia Problem List: (1) Stage 5 chronic kidney disease ICD Codes: N18.5 - Chronic kidney disease, stage 5 (2) DM (diabetes mellitus) ICD Codes: E11.9 - DM (diabetes mellitus) Status: Chronic (3) Chronic systolic CHF (congestive heart failure) ICD Codes: I50.22 - Chronic systolic CHF (congestive heart failure) Status: Chronic (4) Hyperkalemia ICD Codes: E87.5 - Hyperkalemia Status: Acute (5) Hypertension ICD Codes: I10 - Hypertension Status: Chronic (6) COPD exacerbation ICD Codes: J44.1 - COPD exacerbation Status: Acute (7) Respiratory distress ICD Codes: R06.00 - Respiratory distress Status: Acute (8) HIV (human immunodeficiency virus infection) ICD Codes: Z21 - HIV (human immunodeficiency virus infection) Status: Chronic (9) PNA (pneumonia) ICD Codes: J18.9 - PNA (pneumonia) Status: Acute (10) Hepatitis C ICD Codes: B19.20 - Hepatitis C Status: Chronic Plan . Patient has advance stage 4 chronic kidney disease. Admitted with elevated BUN and Creatinine and high K level. Started on HD, last was on Saturday10/28/17 Urinary output of 450cc over 24 hours Creatinine has been improvin.6 -> 3.2 -> 2.9 ->2.65 yesterday Antibiotics per ID Keep strict I+O's. Will continue to hold hemodialysis Follow the urine out put and BMP. Mental status has improved. Labs pending this morning. May consider for AV access as patient stabilizes. (Sameera Rudd) Plan Patient seen and examined, agree with above. Creatinine is better, breathing improved. (Millicent Ga MD) Sameera Rudd November 06, 2017 09:35 Millicent Ga MD November 07, 2017 00:15
[2017-11-06 10:15] LABS: AUTOMATED NEUTROPHIL # 3.1 TH/MM3 (1.8-7.7); BASOPHIL % 0.7 % (0.0-2.0); HEMATOCRIT 26.9 % (39.0-51.0); HEMOGLOBIN 8.3 GM/DL (13.0-17.0); LYMPH % 3.7 % (9.0-44.0); LYMPHOCYTE # 0.1 TH/MM3 (1.0-4.8); MEAN CELL VOLUME 82.7 FL (80.0-100.0); MEAN CORPUSCULAR HEMOGLOBIN 25.6 PG (27.0-34.0); MEAN CORPUSCULAR HGB CONC 30.9 % (32.0-36.0); MEAN PLATELET VOLUME 7.3 FL (7.0-11.0); MONO % 9.2 % (0.0-8.0); MONOCYTE # 0.3 TH/MM3 (0-0.9); NEUT % 86.4 % (16.0-70.0); PLATELET COUNT 211 TH/MM3 (150-450); RED BLOOD COUNT 3.25 MIL/MM3 (4.50-5.90); RED CELL DISTRIBUTION WIDTH 19.8 % (11.6-17.2); WHITE BLOOD COUNT 3.6 TH/MM3 (4.0-11.0)
[2017-11-06 10:33] LABS: BICARBONATE 28.7 MEQ/L (21.0-32.0); CALCIUM 8.1 MG/DL (8.5-10.1); CREATININE 2.38 MG/DL (0.60-1.30)
[2017-11-06] MEDS: HEPARIN SODIUM - SQ 10,000 UNITS/ML VIAL SQ SCH ×2 (11:10→22:30)
--- NOTE | 2017-11-06 11:43 | HHI.CCPN ---
Subjective Remarks/Hospital Course 10/26: This is a 56-year-old male who presents to the emergency department for altered mental status and not feeling well. The patient is quite altered and cannot provide any reliable history, and is only mumbling incoherently. He is protecting his airway and on room air, but cannot provide any additional information. Per the emergency department reports and [facility] reports, he has a history of hepatitis B, hepatitis C, COPD, chronic kidney disease of unknown stage, hypertension, CHF. In the emergency department he was found to have a creatinine of 5.08, BUN 65, potassium 7.3, sodium 135. He is afebrile with a normal white count. He is anemic with a hemoglobin of 9.2. Past visits would suggest his baseline creatinine to be between 2.3 and 3.09. He does have a urinalysis which is significant for pyuria with proteinuria and a large amount of bacteria suggestive of a urinary tract infection. On-call psychiatric technician assistant was contacted due to the hyperkalemia and recommended medical management including insulin, D50, Kayexalate, bicarbonate and serial electrolyte's and recommended against emergent dialysis at this time. No additional information is available from the patient. The patient has been in the ICU for acute renal failure with life-threatening electrolyte abnormalities. Review systems is unobtainable due to his clinical condition. The remainder of the history is obtained from review of the medical record. 10/27: Patient seen earlier this a.m., remains lethargic but arousable with periods of agitation. Hemodialysis catheter was placed emergently at bedside and nephrology was consulted for dialysis. Patient is arousable, mumbles words , knows his name but he is not able to provide any history. Urine output is minimal. No bowel movement yet post Kayexalate. ROS: -Unobtainable due to patient's mental status. 10/28 Patient s/p emergent HD yesterday for hyperkalemia K 5.2 this morning from 7.3 on arrival. On BIPAP 18/5 with 30 %FIO2. On Precedex drip for agitation. 10/29 No events overnight. Off Precedex drip. Remains on BIPAP . Afebrile. Awake and alert. s/p HD yesterday with removal 3L. 10/30 Patient had 6 runs nonsustained Vtach ( asymptomatic) For HD today. 10/31 No events overnight, patient is lying in bed in NAD. Afebrile. 11/04: Critical care he consulted by Dr. Sauceda for worsening respiratory status. ABG done on the floor revealed PCO2 in the 70s with respiratory distress. Patient was transferred to the ICU and placed on BiPAP with full facemask. I evaluated the patient shortly following his arrival to the ICU. At that time he was drowsy, easily arousable, on BiPAP with full facemask. He was also noted to be hyperkalemic with a potassium of 5.7 for which I initiated treatment with glucose/insulin/bicarb/Kayexalate. I spoke with Dr. Ga who was there to evaluate patient as well. Awaiting ABG on BiPAP. Subjective: 11/05 Bipap titrated up to 20/5 due to hypercapnia on morning ABG with pH 7.23/ PaCO2 of 74/PaO2 of 92 on 15/ and 30%. He is alert and interactive currently. He request something for anxiety because he states he is quite claustrophobic with BiPAP mask in place. Specifically he request morphine and Ativan. He is orthopneic and cannot comply with CT scan ordered per infectious disease. 11/06: On BiPAP. Very hungry and wants his diet changed. Objective Vital Signs Date Time Temp Pulse Resp B/P (MAP) Pulse Ox O2 Delivery O2 Flow Rate FiO2 11/06/17 10:00 94 11/06/17 09:00 95 Nasal Cannula 3.00 11/06/17 08:00 98.6 15 165/107 (126) 11/06/17 07:00 30 Intake and Output 11/06/17 11/06/17 11/07/17 08:00 16:00 00:00 Intake Total 720 ml Output Total 1050 ml Balance -330 ml Result Diagram: 11/06/17 0942 11/06/17 0942 Other Results Laboratory Tests Test 11/05/17 15:57 11/06/17 06:15 Blood Gas Puncture Site LT RADIAL RT RADIAL Blood Gas Patient Temperature 98.6 98.6 Blood Gas HCO3 31 mmol/L (22-26) 31 mmol/L (22-26) Blood Gas Base Excess 5.0 mmol/L (-2-2) 5.7 mmol/L (-2-2) Blood Gas Oxygen Saturation 95 % (90-100) 94 % (90-100) Arterial Blood pH 7.32 (7.380-7.420) 7.36 (7.380-7.420) Arterial Blood Partial Pressure CO2 61 mmHg (38-42) 57 mmHg (38-42) Arterial Blood Partial Pressure O2 107 mmHg (61-120) 107 mmHg (61-120) Arterial Blood Oxygen Content 11.6 Vol % (12.0-20.0) 11.1 Vol % (12.0-20.0) Arterial Blood Carboxyhemoglobin 2.3 % (0-4) 2.3 % (0-4) Arterial Blood Methemoglobin 1.3 % (0-2) 1.5 % (0-2) Blood Gas Hemoglobin 8.6 G/DL (12.0-16.0) 8.2 G/DL (12.0-16.0) Oxygen Delivery Device BiPAP BiPAP Blood Gas Ventilator Setting IPAP20/EPAP5/PS15 IPAP20/EPAP8 Blood Gas Inspired Oxygen 30 % 30 % Imaging Last Impressions Chest X-Ray 10/26/17 1425 Signed Impressions: Service Date/Time: Thursday, October 26, 2017 14:31 - CONCLUSION: Prominent cardiac silhouette. Pericardial effusion cannot be entirely excluded. No failure Sung Phillips MD FACR Renal Ultrasound 10/26/17 0000 Signed Impressions: Service Date/Time: Thursday, October 26, 2017 20:06 - CONCLUSION: 1. There is some increased echogenicity of the renal parenchyma suggestive of chronic medical renal disease. 2. No evidence of hydronephrosis. 3. Small 1.1 cm cyst upper pole left kidney. Giuseppe Street MD Procedures 10/27/17 right femoral Vas-Cath placement Objective Remarks GENERAL: Middle-aged gentleman sitting up in bed, alert and communicating with BIPAP. HEENT: Normocephalic. Atraumatic. Pupils are equal and reactive, sclerae are anicteric. Full BiPAP mask in place. NECK: Trachea is midline. There is no JVD CHEST: On BiPAP with full facemask, diminished breath sounds bilaterally, no wheeze. CARDIOVASCULAR: Regular S1 and S2. No murmurs appreciated. ABDOMEN: Soft, nontender, nondistended. No guarding. Bowel sounds are present. No hepatomegaly or splenomegaly appreciated MUSCULOSKELETAL: Chronic nonpitting edema, 3+ down the length of the right leg. Left lower extremity is about 1+ edema. NEUROLOGICAL: Awake and alert, spontaneously moving all extremities. Communicates verbally expressing needs while he is on BiPAP. A/P Assessment and Plan Plan by systems: Neurologic: Acute metabolic encephalopathy Uremic encephalopathy History of illicit substance use Monitor neuro status Avoid long-acting sedatives UDS + Opiates on admission Respiratory: Acute hypercapnic respiratory failure COPD Continue BiPAP as needed. Nasal cannula as tolerated. Bronchodilators, continue solumederol 40mg Q8, Symbicort 160/4.[address] chest has been ordered per infectious disease but he is orthopneic and unable to obtain at this time, could proceed with scan if he requires intubation. Lasix 40 mg IV Cardiovascular: Chronic systolic heart failure Hypertension Pulmonary hypertension Coreg 6.25mg BID, add Hydralazine 25mg Q8 Monitor HR and BP keep MAP>65mmHg Echo showed EF 20%, mod-severe pulm HTN PAP 65mmHg Renal: Acute kidney injury superimposed on chronic renal insufficiency, unknown stage - likely secondary to urinary tract infection Urinary tract infection Monitor renal function, I/O's, avoid nephrotoxins Off hemodialysis after first few sessions per Dr. Ga. Renal- Dr. Ga Renal US: There is increased echogenicity of the renal parenchyma suggestive of chronic medical renal disease. No evidence of hydronephrosis. Small 1.1 cm cyst upper pole left kidney. FEN/GI: PO diet as tolerated On Pepcid 10mg IV Q12 Heme/ID: Anemia, unknown cause, likely secondary to chronic disease Urinary tract infection, HIV Low CD4 (14) Monitor CBC urine culture : ESBL Kleb Continue Abx per ID. On Avycaz On PCP and MAC prophylaxis per ID. Bactrim 1 tab p.o. daily, azithromycin 1200 mg p.o. weekly. Endocrine: SSI with accuchecks Prophylaxis: GI Prophylaxis Pepcid DVT Prophylaxis -- SCDs Subcu heparin Lines: Peripheral IVs Consult and transfer to hospitalist service for further medical management. Transfer to [facility]. Further recommendations per nephrology and ID. Jethro Matthew MD November 06, 2017 11:43
[2017-11-06 12:31] LABS: BANDS 1 % (0-6); CORRECTED NUCLEATED RBC 1 /100 WBC (0-0); LYMPHOCYTES 5 % (9-44); MONOCYTES 4 % (0-8); NEUTROPHIL # MANUAL DIFF 3.3 TH/MM3 (1.8-7.7); NUCLEATED RED BLOOD CELL 1 (0-0); POLYS (SEG NEUTROPHILS) 90 % (16-70)
[2017-11-06 12:32] LABS: OVALOCYTES 1+ (NORMAL); TEARDROP RBCS 1+ (NORMAL)
[2017-11-06] MEDS: LORazepam 2 MG/ML VIAL IV PUSH PRN ×2 (16:03→22:49)
[2017-11-07] VITALS (32 sets, daily range): BP systolic 126–155; BP diastolic 81–98; PULSE 82–106; RESP 20–26; TEMP 97.4–98.5; O2SAT 96–100
[2017-11-07] MEDS: cloNIDine HCL 0.1 MG TAB PO PRN (00:41)
[2017-11-07] MEDS: CHLORHEXIDINE GLUCONATE 2 % 1 PACK (2 CLOTHS) TOP SCH (03:21)
[2017-11-07] MEDS: INSULIN NovoLIN REGULAR SUPPLEMENTAL SCALE SQ SCH ×6 (04:05→20:43)
[2017-11-07] MEDS: hydrALAZINE HCL 25 MG TAB PO SCH ×3 (05:42→23:58)
[2017-11-07] MEDS: MORPHINE SULFATE 4 MG/ML INJ IV PUSH PRN ×3 (05:43→14:38)
[2017-11-07 06:36] LABS: AUTOMATED NEUTROPHIL # 5.9 TH/MM3 (1.8-7.7); BASOPHIL % 0.3 % (0.0-2.0); HEMATOCRIT 28.9 % (39.0-51.0); HEMOGLOBIN 8.8 GM/DL (13.0-17.0); LYMPH % 2.2 % (9.0-44.0); LYMPHOCYTE # 0.1 TH/MM3 (1.0-4.8); MEAN CELL VOLUME 84.9 FL (80.0-100.0); MEAN CORPUSCULAR HEMOGLOBIN 25.8 PG (27.0-34.0); MEAN CORPUSCULAR HGB CONC 30.4 % (32.0-36.0); MEAN PLATELET VOLUME 7.3 FL (7.0-11.0); MONO % 6.6 % (0.0-8.0); MONOCYTE # 0.4 TH/MM3 (0-0.9); NEUT % 90.9 % (16.0-70.0); PLATELET COUNT 236 TH/MM3 (150-450); RED BLOOD COUNT 3.41 MIL/MM3 (4.50-5.90); WHITE BLOOD COUNT 6.5 TH/MM3 (4.0-11.0)
[2017-11-07 07:10] LABS: ALBUMIN 3.1 GM/DL (3.4-5.0); AST (GOT) 29 U/L (15-37); BICARBONATE 29.7 MEQ/L (21.0-32.0); BLOOD UREA NITROGEN 76 MG/DL (7-18); CALCIUM 7.9 MG/DL (8.5-10.1); CHLORIDE 104 MEQ/L (98-107); CREATININE 2.41 MG/DL (0.60-1.30); GLOMERULAR FILTRATION RATE 34 ML/MIN (>89); GLUCOSE,RANDOM 160 MG/DL (74-106); SODIUM (NA) 142 MEQ/L (136-145)
[2017-11-07 07:11] LABS: ALT (GPT) 32 U/L (12-78)
[2017-11-07 07:14] LABS: ALKALINE PHOSPHATASE 64 U/L (45-117); TOTAL BILIRUBIN ADULT 0.5 MG/DL (0.2-1.0); TOTAL PROTEIN 7.5 GM/DL (6.4-8.2)
[2017-11-07] MEDS: CEFTAZIDIME IV SCH ×2 (09:40→15:44)
[2017-11-07] MEDS: AVIBACTAM IV SCH ×2 (09:40→15:44)
[2017-11-07] MEDS: BUDESONIDE-FORMOTEROL 160/4.5 MCG INHALER INH SCH ×2 (09:40→20:42)
[2017-11-07] MEDS: NS IV SCH ×2 (09:40→15:44)
[2017-11-07] MEDS: SODIUM CHLORIDE 0.9% FLUSH 10 ML FLUSH IV FLUSH SCH ×2 (09:41→20:43)
[2017-11-07] MEDS: SULFAMETHOXAZOLE-TRIMETHOPRIM DS 800-160 MG TAB PO SCH (09:42)
[2017-11-07] MEDS: CARVEDILOL 12.5 MG TAB PO SCH ×2 (09:42→20:43)
[2017-11-07] MEDS: HEPARIN SODIUM - SQ 10,000 UNITS/ML VIAL SQ SCH ×2 (09:42→23:59)
[2017-11-07] MEDS: methylPREDNISolone SOD SUCC 40 MG/1 ML VIAL IV PUSH SCH ×2 (09:42→20:43)
[2017-11-07] MEDS: FAMOTIDINE 20 MG TAB PO SCH ×2 (09:42→20:44)
--- NOTE | 2017-11-07 09:55 | HHI.NPPN ---
Subjective General Problems: Anemia, Edema, Hypertension Renal Failure: Stage IV History of Present Illness 56-year-old male with a past medical history of hypertension, history of HIV, chronic lymphedema of the legs, diabetes mellitus, sleep apnea, ischemic heart disease, was brought to the hospital with altered mental status and not feeling well. I was called to see the patient because of elevated BUN and creatinine and high potassium. The patient has known history of chronic kidney disease and patient was seen by me when he was here in March last year. At that time, he had creatinine in the range of 2.3-3.0 and he was discharged with a creatinine of 2.5 and now he came with a creatinine of 5.0 and also potassium of 7.3. Additional Remarks Sitting on side of bed eating breakfast. Reports mild shortness of breath. Falling to sleep when talking. (Sameera Rudd) Review of Systems Respiratory Lungs: SOB (Sameera Rudd) Cardiovascular Cardiac Remarks denies any Chest pain (Sameera Rudd) Gastrointestinal GI Remarks denies any abdominal pain (Sameera Rudd) Objective Data Data Vital Signs Date Time Temp Pulse Resp B/P (MAP) Pulse Ox O2 Delivery O2 Flow Rate FiO2 11/07/17 07:00 98 11/07/17 06:00 98 11/07/17 05:50 24 11/07/17 05:00 96 11/07/17 04:00 100 11/07/17 03:38 101 11/07/17 03:19 97.4 100 24 126/81 (96) 96 11/07/17 02:19 100 11/07/17 01:00 102 11/07/17 00:00 100 11/06/17 23:45 98.5 99 26 142/103 (116) 100 11/06/17 23:00 98 11/06/17 22:00 96 11/06/17 21:00 104 11/06/17 20:27 98 Nasal Cannula 4.00 11/06/17 20:27 99.0 102 24 153/94 (113) 98 11/06/17 20:00 106 11/06/17 19:00 120 11/06/17 18:00 106 11/06/17 17:00 104 5/23/18 16:00 96 11/06/17 15:44 Nasal Cannula 4.00 11/06/17 15:12 97.7 107 20 166/109 (128) 100 11/06/17 15:00 103 11/06/17 14:00 98 11/06/17 12:00 98.4 91 22 150/94 (112) 95 11/06/17 12:00 91 11/06/17 10:00 94 (Sameera Rudd) -: 11/07/17 0544 11/07/17 0544 Imaging Last Impressions Chest X-Ray 11/06/17 0000 Signed Impressions: CONCLUSION: No significant change. Moderate cardiomegaly remains. Renal Ultrasound 10/26/17 0000 Signed Impressions: Service Date/Time: Thursday, October 26, 2017 20:06 - CONCLUSION: 1. There is some increased echogenicity of the renal parenchyma suggestive of chronic medical renal disease. 2. No evidence of hydronephrosis. 3. Small 1.1 cm cyst upper pole left kidney. Giuseppe Street MD (Sameera Rudd) Physical Exam General Appearance: No Acute Distress (Sameera Rudd) Eyes Eye Exam: Pupils Equal (Sameera Rudd) Throat Throat Exam: Oral Mucosa [place] & Moist (Sameera Rudd) Pulmonary Resp Exam: Breath Sounds Equal, No Distress, Rhonchi, Decreased Bases, Diminished Breath Sounds (Sameera Rudd) Cardiology CV Exam: Regular (Sameera Rudd) Gastrointestinal/Abdomen GI Exam: Soft, Non-Tender, Bowel Sounds Present, Distended (Sameera Rudd) Integumentary Skin Exam: Clear, Warm (Sameera Rudd) Extremeties Extremities Exam: Moderate Edema, Dependent Edema Extremeties Remarks lymphedema right leg (Sameera Rudd) Neurologic Neuro Exam: Alert, Awake Neuro Remarks falling asleep when talking to patient (Sameera Rudd) Psychiatric Psych Exam: Appropriate Responses (Sameera Rudd) Assessment/Plan Assessment Summary: Anemia of CKD, CKD Stage V Electrolyte Assessment: Hyperkalemia Problem List: (1) Stage 5 chronic kidney disease ICD Codes: N18.5 - Chronic kidney disease, stage 5 (2) DM (diabetes mellitus) ICD Codes: E11.9 - DM (diabetes mellitus) Status: Chronic (3) Chronic systolic CHF (congestive heart failure) ICD Codes: I50.22 - Chronic systolic CHF (congestive heart failure) Status: Chronic (4) Hyperkalemia ICD Codes: E87.5 - Hyperkalemia Status: Acute (5) Hypertension ICD Codes: I10 - Hypertension Status: Chronic (6) COPD exacerbation ICD Codes: J44.1 - COPD exacerbation Status: Acute (7) Respiratory distress ICD Codes: R06.00 - Respiratory distress Status: Acute (8) HIV (human immunodeficiency virus infection) ICD Codes: Z21 - HIV (human immunodeficiency virus infection) Status: Chronic (9) PNA (pneumonia) ICD Codes: J18.9 - PNA (pneumonia) Status: Acute (10) Hepatitis C ICD Codes: B19.20 - Hepatitis C Status: Chronic Plan Patient has advance stage 4 chronic kidney disease. Admitted with elevated BUN and Creatinine and high K level. Started on HD, last was on Saturday10/28/17 Urinary output of 1125cc over 24 hours Creatinine has been improvin.6 -> 3.2 -> 2.9 ->2.65 ->2.38->2.41 today Antibiotics per ID Keep strict I+O's. Will continue to hold hemodialysis Follow the urine out put and BMP. May consider for AV access as patient stabilizes. (Sameera Rudd) Plan Patient seen and examine, agree with above. Creatinine is stable. (Millicent Ga MD) Sameera Rudd November 07, 2017 09:55 Millicent Ga MD November 08, 2017 00:19
[2017-11-07] MEDS: LORazepam 2 MG/ML VIAL IV PUSH PRN (15:44)
--- NOTE | 2017-11-07 16:21 | HHI.PR ---
Subjective Remarks patient up in chair , easily irritable awake and alert oriented x 3 states chronic leg swelling R>L states he gets aroudn with a cane Objective Vitals Vital Signs Date Time Temp Pulse Resp B/P (MAP) Pulse Ox O2 Delivery O2 Flow Rate FiO2 11/07/17 16:00 99 11/07/17 15:06 20 11/07/17 15:00 98.4 93 21 138/87 (104) 98 11/07/17 15:00 100 11/07/17 14:00 96 11/07/17 13:00 97 11/07/17 12:30 141/97 (112) 11/07/17 12:00 96 11/07/17 11:00 97 20 145/98 (114) 99 11/07/17 11:00 97 11/07/17 10:00 96 11/07/17 09:00 100 11/07/17 08:00 96 11/07/17 07:15 97 Nasal Cannula 4.00 11/07/17 07:15 98.0 97 21 146/96 (113) 97 11/07/17 07:00 98 11/07/17 06:00 98 11/07/17 05:00 96 11/07/17 04:00 100 11/07/17 03:38 101 11/07/17 03:19 97.4 100 24 126/81 (96) 96 11/07/17 02:19 100 11/07/17 01:00 102 11/07/17 00:00 100 11/06/17 23:45 98.5 99 26 142/103 (116) 100 11/06/17 23:00 98 11/06/17 22:00 96 11/06/17 21:00 104 11/06/17 20:27 98 Nasal Cannula 4.00 11/06/17 20:27 99.0 102 24 153/94 (113) 98 11/06/17 20:00 106 11/06/17 19:00 120 11/06/17 18:00 106 11/06/17 17:00 104 I/O 11/06/17 11/06/17 11/06/17 11/07/17 11/07/17 11/07/17 07:00 15:00 23:00 07:00 15:00 23:00 Intake Total 720 ml 375 ml 240 ml 770 ml Output Total 1050 ml 400 ml 400 ml 325 ml Balance -330 ml -25 ml -160 ml 445 ml Intake Oral 720 ml 325 ml 240 ml 720 ml IV Total 50 ml 50 ml Output Urine Total 1050 ml 400 ml 400 ml 325 ml # Bowel Movements 2 1 2 1 Result Diagram: 11/07/17 0544 11/07/17 0544 Imaging Last Impressions Chest X-Ray 11/06/17 0000 Signed Impressions: CONCLUSION: No significant change. Moderate cardiomegaly remains. Renal Ultrasound 10/26/17 0000 Signed Impressions: Service Date/Time: Saturday, October 26, 2017 20:06 - CONCLUSION: 1. There is some increased echogenicity of the renal parenchyma suggestive of chronic medical renal disease. 2. No evidence of hydronephrosis. 3. Small 1.1 cm cyst upper pole left kidney. Giuseppe Street MD Objective Remarks awake and alert, oriented x 3 but easily drift off anciteric lungs- decreased breath sounds regular rhythm abdmen- flabby soft LE edema L > R moves all extremities spontaneously Procedures 10/27/17 right femoral Vas-Cath placement A/P Assessment and Plan 56 years old male 56 years old male Acute metabolic encephalopathy Uremic encephalopathy History of illicit substance use Monitor neuro status- patient awake and alert with clear speech- but drift to sleep easily Avoid long-acting sedatives UDS + Opiates on admission Acute hypercapnic respiratory failure COPD Continue BiPAP as needed. - patient refusing Nasal cannula as tolerated. Bronchodilators, continue solumederol 40mg Q8- decrease to q 12 , Symbicort 160/4.[address] chest has been ordered per infectious disease but he is orthopneic and unable to obtain at this time, could proceed with scan if he requires intubation. Cardiovascular: Chronic systolic heart failure Hypertension Pulmonary hypertension Coreg 6.25mg BID, add Hydralazine 25mg Q8 Monitor HR and BP keep MAP>65mmHg Echo showed EF 20%, mod-severe pulm HTN PAP 65mmHg Renal: Acute kidney injury superimposed on chronic renal insufficiency, unknown stage - likely secondary to urinary tract infection Urinary tract infection Monitor renal function, I/O's, avoid nephrotoxins Off hemodialysis after first few sessions per Dr. Ga. Renal- Dr. Ga Renal US: There is increased echogenicity of the renal parenchyma suggestive of chronic medical renal disease. No evidence of hydronephrosis. Small 1.1 cm cyst upper pole left kidney. voiding well Heme/ID: Anemia, unknown cause, likely secondary to chronic disease Urinary tract infection, HIV Low CD4 (14) Monitor CBC urine culture : ESBL Kleb Continue Abx per ID. On Avycaz On PCP and MAC prophylaxis per ID. Bactrim 1 tab p.o. daily, azithromycin 1200 mg p.o. weekly HIV disease, Rx unknown ( 2 drugs with Norvir listed as home medx) CD4 14 CD8 34 UTI, ESBL+ E.coli diarrhea, C.diff neg cont PCP and MAC profilaxis cont Avycaz (ASP criteria: CRE Kleb pneumo) x 14 days - dose needs to be adjusted per improving GFR Follow cultures ID ff History of chronic pain - DC IV Morphine restart his Lortab 5/500 1 tab po q 4 prn for pain FEN/GI: PO diet as tolerated On Pepcid 10mg IV Q12- change to po 11/07 Rm Velasco MD November 07, 2017 16:21
[2017-11-07] MEDS ORDERED: ACETAMINOPHEN/HYDROcodone 325 MG/5 MG TAB PO PRN (16:45)
[2017-11-08] VITALS (22 sets, daily range): BP systolic 100–144; BP diastolic 39–99; PULSE 80–104; RESP 18–26; TEMP 96.9–97.7; O2SAT 94–100
[2017-11-08] MEDS: RESP: ALBUTEROL 2.5 MG/IPRATROPIUM 0.5 MG NEB (PRN) INH (01:00)
[2017-11-08] MEDS: INSULIN NovoLIN REGULAR SUPPLEMENTAL SCALE SQ SCH ×6 (04:07→20:00)
[2017-11-08] MEDS: CHLORHEXIDINE GLUCONATE 2 % 1 PACK (2 CLOTHS) TOP SCH (04:07)
[2017-11-08] MEDS: hydrALAZINE HCL 25 MG TAB PO SCH ×3 (05:35→22:13)
[2017-11-08] MEDS: BUDESONIDE-FORMOTEROL 160/4.5 MCG INHALER INH SCH ×2 (09:33→20:48)
[2017-11-08] MEDS: CARVEDILOL 12.5 MG TAB PO SCH ×2 (09:34→22:12)
[2017-11-08] MEDS: SULFAMETHOXAZOLE-TRIMETHOPRIM DS 800-160 MG TAB PO SCH (09:34)
[2017-11-08] MEDS: methylPREDNISolone SOD SUCC 40 MG/1 ML VIAL IV PUSH SCH ×2 (09:34→20:36)
[2017-11-08] MEDS: SODIUM CHLORIDE 0.9% FLUSH 10 ML FLUSH IV FLUSH SCH ×2 (09:34→20:36)
[2017-11-08] MEDS: CEFTAZIDIME IV SCH ×4 (09:35→16:00)
[2017-11-08] MEDS: AVIBACTAM IV SCH ×4 (09:35→16:00)
[2017-11-08] MEDS: FAMOTIDINE 20 MG TAB PO SCH ×2 (09:35→22:12)
[2017-11-08] MEDS: NS IV SCH ×4 (09:35→16:00)
[2017-11-08] MEDS: HEPARIN SODIUM - SQ 10,000 UNITS/ML VIAL SQ SCH ×2 (09:37→22:13)
--- NOTE | 2017-11-08 10:17 | HHI.PR ---
Subjective Remarks awake and alert, denies any nausea or vomiting states hsitory of chronic aches and pains and take Hydrocodone 10 mg voiding Objective Vitals Vital Signs Date Time Temp Pulse Resp B/P (MAP) Pulse Ox O2 Delivery O2 Flow Rate FiO2 11/08/17 06:15 88 11/08/17 05:00 82 11/08/17 04:09 84 24 124/88 (100) 100 11/08/17 04:09 99 Nasal Cannula 4.00 11/08/17 04:00 80 11/08/17 03:00 90 11/08/17 02:00 84 11/08/17 01:30 24 11/08/17 01:10 100 Nasal Cannula 4.00 11/08/17 01:00 92 11/08/17 00:03 98 30 11/08/17 00:00 90 26 141/93 (109) 95 11/08/17 00:00 98 Bi-Pap 11/08/17 00:00 94 11/07/17 23:58 100 Nasal Cannula 4.00 11/07/17 23:00 82 11/07/17 22:00 84 11/07/17 21:29 96 30 11/07/17 21:00 100 11/07/17 20:50 99 Bi-Pap 30 11/07/17 20:50 98.5 98 26 155/92 (113) 99 11/07/17 20:15 98 Nasal Cannula 3.00 11/07/17 20:00 98 11/07/17 19:00 106 11/07/17 18:00 103 11/07/17 17:00 102 11/07/17 16:00 99 11/07/17 15:06 20 11/07/17 15:00 98.4 93 21 138/87 (104) 98 11/07/17 15:00 100 11/07/17 14:00 96 11/07/17 13:00 97 11/07/17 12:30 141/97 (112) 11/07/17 12:00 96 11/07/17 11:00 97 20 145/98 (114) 99 11/07/17 11:00 97 I/O 11/07/17 11/07/17 11/07/17 11/08/17 11/08/17 11/08/17 07:00 15:00 23:00 07:00 15:00 23:00 Intake Total 770 ml 50 ml 240 ml 720 ml Output Total 325 ml 575 ml 300 ml Balance 445 ml 50 ml -335 ml 420 ml Intake Oral 720 ml 240 ml 720 ml IV Total 50 ml 50 ml Output Urine Total 325 ml 575 ml 300 ml # Voids 2 # Bowel Movements 1 1 Result Diagram: 11/07/17 0544 11/07/17 0544 Imaging Last Impressions Chest X-Ray 11/06/17 0000 Signed Impressions: CONCLUSION: No significant change. Moderate cardiomegaly remains. Renal Ultrasound 10/26/17 0000 Signed Impressions: Service Date/Time: Thursday, October 26, 2017 20:06 - CONCLUSION: 1. There is some increased echogenicity of the renal parenchyma suggestive of chronic medical renal disease. 2. No evidence of hydronephrosis. 3. Small 1.1 cm cyst upper pole left kidney. Giuseppe Street MD Objective Remarks awake and alert, oriented x 3 anciteric lungs- decreased breath sounds regular rhythm abdomen- flabby soft LE edema L > R moves all extremities spontaneously Procedures 10/27/17 right femoral Vas-Cath placement A/P Assessment and Plan 56 years old male 56 years old male Acute metabolic encephalopathy Uremic encephalopathy History of illicit substance use Monitor neuro status- patient awake and alert with clear speech- but drift to sleep easily Avoid long-acting sedatives UDS + Opiates on admission Acute hypercapnic respiratory failure COPD Continue BiPAP as needed. - patient refusing Nasal cannula as tolerated. Bronchodilators, continue solumederol 40mg Q8- decrease to q 12 5/ , Symbicort 160/4.[address] chest has been ordered per infectious disease but he is orthopneic and unable to obtain at this time, could proceed with scan if he requires intubation. Cardiovascular: Chronic systolic heart failure Hypertension Pulmonary hypertension Coreg 6.25mg BID, add Hydralazine 25mg Q8 Monitor HR and BP keep MAP>65mmHg Echo showed EF 20%, mod-severe pulm HTN PAP 65mmHg Renal: Acute kidney injury superimposed on chronic renal insufficiency, unknown stage - likely secondary to urinary tract infection Urinary tract infection Monitor renal function, I/O's, avoid nephrotoxins Off hemodialysis after first few sessions per Dr. Ga. Renal- Dr. Ga Renal US: There is increased echogenicity of the renal parenchyma suggestive of chronic medical renal disease. No evidence of hydronephrosis. Small 1.1 cm cyst upper pole left kidney. voiding well Heme/ID: Anemia, unknown cause, likely secondary to chronic disease Urinary tract infection, HIV Low CD4 (14) Monitor CBC urine culture : ESBL Kleb Continue Abx per ID. On Avycaz On PCP and MAC prophylaxis per ID. Bactrim 1 tab p.o. daily, azithromycin 1200 mg p.o. weekly HIV disease, Rx unknown ( 2 drugs with Norvir listed as home medx) CD4 14 CD8 34 UTI, ESBL+ E.coli diarrhea, C.diff neg cont PCP and MAC profilaxis cont Avycaz (ASP criteria: CRE Kleb pneumo) x 14 days - dose needs to be adjusted per improving GFR Follow cultures ID ff History of chronic pain - DC IV Morphine on Lortab 7. 5/500 1 tab po q 4 prn for pain- will DC now states he is on Hyrocodone 10 mg q 4 - reordered - monitor for sedation FEN/GI: PO diet as tolerated On Pepcid 10mg IV Q12- change to po 11/07 Out of bed to cahir PT daily Rm Velasco MD November 08, 2017 10:17
--- NOTE | 2017-11-08 11:18 | HHI.NPPN ---
Subjective General Problems: Anemia, Edema, Hypertension Renal Failure: Stage IV History of Present Illness 56-year-old male with a past medical history of hypertension, history of HIV, chronic lymphedema of the legs, diabetes mellitus, sleep apnea, ischemic heart disease, was brought to the hospital with altered mental status and not feeling well. I was called to see the patient because of elevated BUN and creatinine and high potassium. The patient has known history of chronic kidney disease and patient was seen by me when he was here in March last year. At that time, he had creatinine in the range of 2.3-3.0 and he was discharged with a creatinine of 2.5 and now he came with a creatinine of 5.0 and also potassium of 7.3. Additional Remarks Falling asleep when talking to patient . No acute complaints. (Sameera Rudd) Review of Systems Cardiovascular Cardiac Remarks denies any Chest pain (Sameera Rudd) Gastrointestinal GI Remarks denies any abdominal pain (Sameera Rudd) Objective Data Data Vital Signs Date Time Temp Pulse Resp B/P (MAP) Pulse Ox O2 Delivery O2 Flow Rate FiO2 11/08/17 10:15 94 11/08/17 09:00 92 11/08/17 08:15 84 11/08/17 08:15 93 Nasal Cannula 4.00 11/08/17 08:15 97.7 93 20 134/92 (106) 95 11/08/17 06:15 88 11/08/17 05:00 82 11/08/17 04:09 84 24 124/88 (100) 100 11/08/17 04:09 99 Nasal Cannula 4.00 11/08/17 04:00 80 11/08/17 03:00 90 11/08/17 02:00 84 11/08/17 01:30 24 11/08/17 01:10 100 Nasal Cannula 4.00 11/08/17 01:00 92 11/08/17 00:03 98 30 11/08/17 00:00 90 26 141/93 (109) 95 11/08/17 00:00 98 Bi-Pap 11/08/17 00:00 94 11/07/17 23:58 100 Nasal Cannula 4.00 11/07/17 23:00 82 11/07/17 22:00 84 11/07/17 21:29 96 30 11/07/17 21:00 100 11/07/17 20:50 99 Bi-Pap 30 11/07/17 20:50 98.5 98 26 155/92 (113) 99 11/07/17 20:15 98 Nasal Cannula 3.00 11/07/17 20:00 98 11/07/17 19:00 106 11/07/17 18:00 103 11/07/17 17:00 102 11/07/17 16:00 99 11/07/17 15:06 20 11/07/17 15:00 98.4 93 21 138/87 (104) 98 11/07/17 15:00 100 11/07/17 14:00 96 11/07/17 13:00 97 11/07/17 12:30 141/97 (112) 11/07/17 12:00 96 (Sameera Rudd) -: 11/07/17 0544 11/07/17 0544 Imaging Last Impressions Chest X-Ray 11/06/17 0000 Signed Impressions: CONCLUSION: No significant change. Moderate cardiomegaly remains. Renal Ultrasound 10/26/17 0000 Signed Impressions: Service Date/Time: Thursday, October 26, 2017 20:06 - CONCLUSION: 1. There is some increased echogenicity of the renal parenchyma suggestive of chronic medical renal disease. 2. No evidence of hydronephrosis. 3. Small 1.1 cm cyst upper pole left kidney. Giuseppe Street MD (Sameera Rudd) Physical Exam General Appearance: No Acute Distress (Sameera Rudd) Eyes Eye Exam: Pupils Equal (Sameera Rudd) Throat Throat Exam: Oral Mucosa [place] & Moist (Sameera Rudd) Pulmonary Resp Exam: Breath Sounds Equal, No Distress, Rhonchi, Decreased Bases, Diminished Breath Sounds (Sameera Rudd) Cardiology CV Exam: Regular (Sameera Rudd) Gastrointestinal/Abdomen GI Exam: Soft, Non-Tender, Bowel Sounds Present, Distended (Sameera Rudd) Integumentary Skin Exam: Clear, Warm (Sameera Rudd) Extremeties Extremities Exam: Moderate Edema, Dependent Edema Extremeties Remarks lymphedema right leg (Sameera Rudd) Neurologic Neuro Exam: Alert, Awake Neuro Remarks falling asleep when talking to patient (Sameera Rudd) Psychiatric Psych Exam: Appropriate Responses (Sameera Rudd) Assessment/Plan Assessment Summary: Anemia of CKD, CKD Stage V Electrolyte Assessment: Hyperkalemia Problem List: (1) Stage 5 chronic kidney disease ICD Codes: N18.5 - Chronic kidney disease, stage 5 (2) DM (diabetes mellitus) ICD Codes: E11.9 - DM (diabetes mellitus) Status: Chronic (3) Chronic systolic CHF (congestive heart failure) ICD Codes: I50.22 - Chronic systolic CHF (congestive heart failure) Status: Chronic (4) Hyperkalemia ICD Codes: E87.5 - Hyperkalemia Status: Acute (5) Hypertension ICD Codes: I10 - Hypertension Status: Chronic (6) COPD exacerbation ICD Codes: J44.1 - COPD exacerbation Status: Acute (7) Respiratory distress ICD Codes: R06.00 - Respiratory distress Status: Acute (8) HIV (human immunodeficiency virus infection) ICD Codes: Z21 - HIV (human immunodeficiency virus infection) Status: Chronic (9) PNA (pneumonia) ICD Codes: J18.9 - PNA (pneumonia) Status: Acute (10) Hepatitis C ICD Codes: B19.20 - Hepatitis C Status: Chronic Plan Patient has advance stage 4 chronic kidney disease. Admitted with elevated BUN and Creatinine and high K level. Started on HD, last HD was on Saturday10/28/17 Urinary output of 875cc over 24 hours Creatinine has been improvin.6 -> 3.2 -> 2.9 ->2.65-> 2.41 yesterday Antibiotics per ID Keep strict I+O's. Will continue to hold hemodialysis Follow the urine out put and BMP. Labs ordered for AM May consider for AV access as patient stabilizes. (Sameera Rudd) Plan Patient seen and examined, agree with above. Creatinine is stable. (Millicent Ga MD) Sameera Rudd November 08, 2017 11:18 Millicent Ga MD November 09, 2017 00:01
[2017-11-08] MEDS: LORazepam 2 MG/ML VIAL IV PUSH PRN (17:24)
[2017-11-09] VITALS (17 sets, daily range): BP systolic 127–211; BP diastolic 79–103; PULSE 80–99; RESP 14–21; TEMP 96.5–97.8; O2SAT 94–100
[2017-11-09] MEDS: AVIBACTAM IV SCH ×4 (00:14→23:22)
[2017-11-09] MEDS: CEFTAZIDIME IV SCH ×4 (00:14→23:22)
[2017-11-09] MEDS: NS IV SCH ×4 (00:14→23:22)
[2017-11-09] MEDS: CHLORHEXIDINE GLUCONATE 2 % 1 PACK (2 CLOTHS) TOP SCH (00:14)
[2017-11-09] MEDS: INSULIN NovoLIN REGULAR SUPPLEMENTAL SCALE SQ SCH ×7 (04:00→23:23)
[2017-11-09] MEDS: hydrALAZINE HCL 25 MG TAB PO SCH ×3 (04:11→20:33)
[2017-11-09 07:36] LABS: AUTOMATED NEUTROPHIL # 6.7 TH/MM3 (1.8-7.7); BASOPHIL % 0.3 % (0.0-2.0); EOSINOPHIL % 0.1 % (0.0-4.0); HEMATOCRIT 31.1 % (39.0-51.0); LYMPH % 1.8 % (9.0-44.0); LYMPHOCYTE # 0.1 TH/MM3 (1.0-4.8); MEAN CELL VOLUME 89.5 FL (80.0-100.0); MEAN CORPUSCULAR HEMOGLOBIN 25.8 PG (27.0-34.0); MEAN CORPUSCULAR HGB CONC 28.9 % (32.0-36.0); MEAN PLATELET VOLUME 7.5 FL (7.0-11.0); MONO % 10.7 % (0.0-8.0); MONOCYTE # 0.8 TH/MM3 (0-0.9); NEUT % 87.1 % (16.0-70.0); PLATELET COUNT 198 TH/MM3 (150-450); RED BLOOD COUNT 3.48 MIL/MM3 (4.50-5.90); RED CELL DISTRIBUTION WIDTH 20.4 % (11.6-17.2); WHITE BLOOD COUNT 7.6 TH/MM3 (4.0-11.0)
[2017-11-09 08:03] LABS: BICARBONATE 32.9 MEQ/L (21.0-32.0); CREATININE 2.85 MG/DL (0.60-1.30)
[2017-11-09] MEDS: methylPREDNISolone SOD SUCC 40 MG/1 ML VIAL IV PUSH SCH ×3 (08:10→23:22)
[2017-11-09] MEDS: FAMOTIDINE 20 MG TAB PO SCH ×2 (08:10→20:33)
[2017-11-09] MEDS: BUDESONIDE-FORMOTEROL 160/4.5 MCG INHALER INH SCH ×2 (08:10→20:35)
[2017-11-09] MEDS: SODIUM CHLORIDE 0.9% FLUSH 10 ML FLUSH IV FLUSH SCH ×2 (08:11→20:34)
[2017-11-09] MEDS: SULFAMETHOXAZOLE-TRIMETHOPRIM DS 800-160 MG TAB PO SCH (08:11)
[2017-11-09] MEDS: CARVEDILOL 12.5 MG TAB PO SCH ×2 (08:11→20:33)
[2017-11-09 08:55] LABS: CORRECTED NUCLEATED RBC 2 /100 WBC (0-0); LYMPHOCYTES 4 % (9-44); MONOCYTES 5 % (0-8); NEUTROPHIL # MANUAL DIFF 6.9 TH/MM3 (1.8-7.7); NUCLEATED RED BLOOD CELL 2 (0-0); POLYS (SEG NEUTROPHILS) 91 % (16-70)
[2017-11-09] MEDS: HEPARIN SODIUM - SQ 10,000 UNITS/ML VIAL SQ SCH ×2 (10:20→23:22)
[2017-11-09] MEDS ORDERED: SODIUM POLYSTYRENE SULFONATE SUSP 15 GM/60 ML CUP PO ONE (11:00)
--- NOTE | 2017-11-09 11:08 | RADRPT ---
EXAM DATE: 11/09/2017 11:05 AM EDT AGE/SEX: 56 years / Male INDICATIONS: Shortness of breath. CLINICAL DATA: This is the patient's subsequent encounter. Patient reports that signs and symptoms h ave been present for 1 week and indicates a pain score of 0/10. MEDICAL/SURGICAL HISTORY: . Chronic obstructive pulmonary disease. Congestive heart failure. 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 [place] [facility] [place]. . FINDINGS: On today's examination there appears to be a new patchy infiltrate in both lung bases. The heart size is enlarged but stable. There is some pulmonary venous congestion bilaterally. The bony structures a re stable. There is some mild blunting of the right costophrenic angle suggestive of small effusion. CONCLUSION: 1. New bibasal infiltrates with pulmonary venous congestion bilaterally. 2. Small right-sided effusion. 3. Prominent stable cardiomegaly. Electronically signed by: Giuseppe Street MD 11/09/2017 11:07 AM EDT
--- NOTE | 2017-11-09 11:40 | HHI.PR ---
Subjective Remarks The patient was requesting something to drink and eat. He said he would be willing to do the BiPAP if he had to. He did not want to be transferred to the ICU, however. He felt like his breathing was at baseline. He does say that he is more tired than usual. Discussed with nursing at the bedside. Objective Vitals Vital Signs Date Time Temp Pulse Resp B/P (MAP) Pulse Ox O2 Delivery O2 Flow Rate FiO2 11/09/17 08:00 97.8 94 19 127/85 (99) 97 11/09/17 00:00 96.5 95 19 130/79 (96) 95 11/08/17 20:24 97 Nasal Cannula 5.00 11/08/17 20:17 96.9 99 22 144/99 (114) 98 11/08/17 20:00 97 Nasal Cannula 4.00 11/08/17 20:00 96.9 104 18 144/99 (114) 97 11/08/17 18:00 92 11/08/17 17:39 97.7 93 20 100/39 (59) 95 11/08/17 17:00 80 11/08/17 16:00 92 11/08/17 15:00 84 11/08/17 15:00 93 Nasal Cannula 4.00 11/08/17 14:00 92 I/O 11/08/17 11/08/17 11/08/17 11/09/17 11/09/17 11/09/17 07:00 15:00 23:00 07:00 15:00 23:00 Intake Total 720 ml 400 ml 290 ml Output Total 300 ml 250 ml 50 ml 400 ml Balance 420 ml -250 ml 350 ml -110 ml Intake Oral 720 ml 400 ml 240 ml IV Total 50 ml Output Urine Total 300 ml 250 ml 50 ml 400 ml # Voids 2 # Bowel Movements 1 1 2 Result Diagram: 11/09/17 0610 11/09/17 0610 Imaging Last Impressions Chest X-Ray 11/09/17 0000 Signed Impressions: CONCLUSION: 1. New bibasal infiltrates with pulmonary venous congestion bilaterally. 2. Small right-sided effusion. 3. Prominent stable cardiomegaly. Renal Ultrasound 10/26/17 0000 Signed Impressions: Service Date/Time: Thursday, October 26, 2017 20:06 - CONCLUSION: 1. There is some increased echogenicity of the renal parenchyma suggestive of chronic medical renal disease. 2. No evidence of hydronephrosis. 3. Small 1.1 cm cyst upper pole left kidney. Giuseppe Street MD Objective Remarks GENERAL: No distress. HEENT: Normocephalic. Atraumatic. Pupils are equal and reactive, sclerae are anicteric. NECK: Trachea is midline. There is no JVD CHEST: Diminished breath sounds bilaterally, no wheezing. CARDIOVASCULAR: Regular S1 and S2. No murmurs appreciated. ABDOMEN: Soft, nontender, nondistended. No guarding. Bowel sounds are present. No hepatomegaly or splenomegaly appreciated. MUSCULOSKELETAL: Chronic nonpitting edema, 3+ down the length of the right leg. Left lower extremity is about 1+ edema. NEUROLOGICAL: Awake and alert, spontaneously moving all extremities. Procedures 10/27/17 right femoral Vas-Cath placement A/P Assessment and Plan Acute metabolic encephalopathy Uremic encephalopathy History of illicit substance use - Monitor neuro status- patient awake and alert with clear speech- but drifts to sleep easily - Avoid long-acting sedatives - UDS + Opiates on admission - BiPAP as needed. Acute hypercapnic respiratory failure/ COPD ABG 11/09 with marked hypercapnia. - transfer back to ICU and resume BiPAP. - Bronchodilators, continue Solumederol 40mg q 12 - Symbicort 160/4.5 Q12 - Noted that CT chest has been ordered per infectious disease Chronic systolic heart failure Hypertension Pulmonary hypertension Echo showed EF 20%, mod-severe pulm HTN PAP 65mmHg - Coreg 6.25mg BID, add Hydralazine 25mg Q8 - volume management per nephrology. Acute kidney injury Superimposed on chronic renal insufficiency, unknown stage. Off hemodialysis at this time. Renal US: There is increased echogenicity of the renal parenchyma suggestive of chronic medical renal disease; No evidence of hydronephrosis; Small 1.1 cm cyst upper pole left kidney. Still with hyperkalemia. - Kayexalate x 1. - dialysis per nephrology. HIV/ Sepsis Low CD4 (14). Urine culture : ESBL Kleb and e coli. - Continue Abx per ID - On PCP and MAC prophylaxis per ID. Bactrim 1 tab p.o. daily, azithromycin 1200 mg p.o. weekly. diarrhea, C.diff neg. - cont Avycaz (ASP criteria: CRE Kleb pneumo) x 14 days. History of chronic pain Has been sedated. - DC IV Morphine - caution with PO pain meds. PPx: Heparin Discharge Planning Transfer to ICU for Dimitri Thorpe DO November 09, 2017 11:40
--- NOTE | 2017-11-09 12:57 | HHI.IDPN ---
Subjective Subjective Remarks pt is on NC O2, apparently in last 2 days improved and was able to go to floor , but today seem to have resp issues again P CO2 93 on ABG quite lethargic Opens eyes but not answering questons today Antibiotics avicaz TS Lines Line sites ok Past Medical History reviewed Allergies: Coded Allergies: benazepril (Unverified Allergy, Severe, SWELLING MOUTH ,TONGUE, 03/20/17) captopril (Unverified Allergy, Severe, SWELLING MOUTH ,TONGUE, 03/20/17) enalaprilat (Unverified Allergy, Severe, SWELLING MOUTH ,TONGUE, 03/20/17) fosinopril (Unverified Allergy, Severe, SWELLING MOUTH ,TONGUE, 03/20/17) lisinopril (Unverified Allergy, Severe, SWELLING MOUTH ,TONGUE, 03/20/17) quinapril (Unverified Allergy, Severe, SWELLING MOUTH ,TONGUE, 03/20/17) Objective . Vital Signs Date Time Temp Pulse Resp B/P (MAP) Pulse Ox O2 Delivery O2 Flow Rate FiO2 11/09/17 12:04 94 40 11/09/17 08:00 97.8 94 19 127/85 (99) 97 11/09/17 00:00 96.5 95 19 130/79 (96) 95 11/08/17 20:24 97 Nasal Cannula 5.00 11/08/17 20:17 96.9 99 22 144/99 (114) 98 11/08/17 20:00 97 Nasal Cannula 4.00 11/08/17 20:00 96.9 104 18 144/99 (114) 97 11/08/17 18:00 92 11/08/17 17:39 97.7 93 20 100/39 (59) 95 11/08/17 17:00 80 11/08/17 16:00 92 11/08/17 15:00 84 11/08/17 15:00 93 Nasal Cannula 4.00 11/08/17 14:00 92 . Laboratory Tests Test 11/09/17 06:10 White Blood Count 7.6 TH/MM3 Red Blood Count 3.48 MIL/MM3 Hemoglobin 9.0 GM/DL Hematocrit 31.1 % Mean Corpuscular Volume 89.5 FL Mean Corpuscular Hemoglobin 25.8 PG Mean Corpuscular Hemoglobin Concent 28.9 % Red Cell Distribution Width 20.4 % Platelet Count 198 TH/MM3 Mean Platelet Volume 7.5 FL Neutrophils (%) (Auto) 87.1 % Lymphocytes (%) (Auto) 1.8 % Monocytes (%) (Auto) 10.7 % Eosinophils (%) (Auto) 0.1 % Basophils (%) (Auto) 0.3 % Neutrophils # (Auto) 6.7 TH/MM3 Lymphocytes # (Auto) 0.1 TH/MM3 Monocytes # (Auto) 0.8 TH/MM3 Eosinophils # (Auto) 0.0 TH/MM3 Basophils # (Auto) 0.0 TH/MM3 CBC Comment AUTO DIFF Differential Total Cells Counted 100 Neutrophils % (Manual) 91 % Lymphocytes % 4 % Monocytes % 5 % Neutrophils # (Manual) 6.9 TH/MM3 Nucleated Red Blood Cells 2 /100 WBC Differential Comment FINAL DIFF MANUAL Platelet Estimate NORMAL Platelet Morphology Comment NORMAL Laboratory Tests Test 11/09/17 06:10 Blood Urea Nitrogen 83 MG/DL Creatinine 2.85 MG/DL Random Glucose 183 MG/DL Calcium Level 8.0 MG/DL Sodium Level 143 MEQ/L Potassium Level 6.0 MEQ/L Chloride Level 103 MEQ/L Carbon Dioxide Level 32.9 MEQ/L Anion Gap 7 MEQ/L Estimat Glomerular Filtration Rate 28 ML/MIN Imaging Last Impressions Chest X-Ray 11/09/17 0000 Signed Impressions: CONCLUSION: 1. New bibasal infiltrates with pulmonary venous congestion bilaterally. 2. Small right-sided effusion. 3. Prominent stable cardiomegaly. Renal Ultrasound 10/26/17 0000 Signed Impressions: Service Date/Time: Thursday, October 26, 2017 20:06 - CONCLUSION: 1. There is some increased echogenicity of the renal parenchyma suggestive of chronic medical renal disease. 2. No evidence of hydronephrosis. 3. Small 1.1 cm cyst upper pole left kidney. Giuseppe Street MD Physical Exam CONSTITUTIONAL/GENERAL: This is an obese middle aged male patient, in no apparent distress. quite lethargic TUBES/LINES/DRAINS: SKIN: No jaundice, rashes, or lesions. CARDIOVASCULAR: Regular rate and rhythm without murmurs, gallops, or rubs. No JVD. Peripheral pulses symmetric. RESPIRATORY/CHEST: Symmetric, unlabored respirations. Clear to auscultation. Breath sounds markedly diominished bilaterally. GASTROINTESTINAL: Abdomen soft, non-tender, nondistended. No hepato-splenomegaly , or palpable masses. No guarding. Bowel sounds present. GENITOURINARY: Without palpable bladder distension. Wang catheter in place with cloudy urine MUSCULOSKELETAL: Extremities without clubbing, cyanosis, Non pitting chronic appearing 3+ edema of RLE and 1+ LLE edema. No cellulitic changes No joint tenderness or effusion noted. No calf tenderness. No mottling or clubbing. NEUROLOGICAL: lethargic, arousable opnes eyes, make eye contact but not talking or following fillows commands PSYCHIATRIC: flat affect Assessment & Plan Remarks HIV disease, Rx unknown ( 2 drugs with Norvir listed as home medx) CD4 14 CD8 34 Presentdd with prominent metabolic encephalopathy - resolving UTI, ESBL+ E.coli CRE kleb pneumo UTI ARF, hyperkalemia, was on HD - creat is stable @ 3.22 today, non oliguric off HD now diarrhea, C.diff neg COPD/ CHF exacerbation Hypercapnic resp failure with Co2 93 and ph 7.15 COmbination of COPD and CHF exacerbation BNP 1700+ Pt is critically ill and unstab;le today; agree with transfer to ICU Hyoperkalemia ? bactrim contriutng Rec's: BNP CT chest when feasible cont PCP and MAC profilaxis - will avoid bactrim - will start Atovaquine cont Avycaz (ASP criteria: CRE Kleb pneumo) x 14 days - dose needs to be adjusted per improv ing GFR Follow cultures follow clinically If intubated will send all resp clx dw Dr Rosa Drew,Gabby Givens MD November 09, 2017 12:57
[2017-11-09] MEDS: ATOVAQUONE SUSP 750 MG/5 ML UDC PO SCH (13:00)
[2017-11-09] MEDS: RESP: ALBUTEROL 2.5 MG/IPRATROPIUM 0.5 MG NEB (SCH) NEB ×2 (15:12→19:49)
--- NOTE | 2017-11-09 17:24 | HHI.NPPN ---
Subjective General Problems: Anemia, Edema, Hypertension Renal Failure: Stage IV History of Present Illness 56-year-old male with a past medical history of hypertension, history of HIV, chronic lymphedema of the legs, diabetes mellitus, sleep apnea, ischemic heart disease, was brought to the hospital with altered mental status and not feeling well. I was called to see the patient because of elevated BUN and creatinine and high potassium. The patient has known history of chronic kidney disease and patient was seen by me when he was here in March last year. At that time, he had creatinine in the range of 2.3-3.0 and he was discharged with a creatinine of 2.5 and now he came with a creatinine of 5.0 and also potassium of 7.3. Additional Remarks Falling asleep when talking to patient . On BiPAP increasing edema Review of Systems Cardiovascular Cardiac Remarks denies any Chest pain Gastrointestinal GI Remarks denies any abdominal pain Objective Data Data Vital Signs Date Time Temp Pulse Resp B/P (MAP) Pulse Ox O2 Delivery O2 Flow Rate FiO2 11/09/17 16:00 80 14 156/103 (120) 95 11/09/17 16:00 80 11/09/17 15:33 18 11/09/17 15:13 97 25 11/09/17 15:00 97.0 89 21 159/96 (117) 100 11/09/17 15:00 96 Bi-Pap 25 11/09/17 15:00 89 11/09/17 14:00 94 11/09/17 12:04 94 40 11/09/17 12:00 96.8 87 21 139/81 (100) 97 11/09/17 08:00 97.8 94 19 127/85 (99) 97 11/09/17 00:00 96.5 95 19 130/79 (96) 95 11/08/17 20:24 97 Nasal Cannula 5.00 11/08/17 20:17 96.9 99 22 144/99 (114) 98 11/08/17 20:00 97 Nasal Cannula 4.00 11/08/17 20:00 96.9 104 18 144/99 (114) 97 11/08/17 18:00 92 11/08/17 17:39 97.7 93 20 100/39 (59) 95 -: 11/09/17 0610 11/09/17 0610 Physical Exam General Appearance: No Acute Distress Eyes Eye Exam: Pupils Equal Throat Throat Exam: Oral Mucosa [place] & Moist Pulmonary Resp Exam: Rhonchi, Decreased Bases, Diminished Breath Sounds Cardiology CV Exam: Regular Gastrointestinal/Abdomen GI Exam: Soft, Non-Tender, Bowel Sounds Present, Distended Integumentary Skin Exam: Clear, Warm Extremeties Extremities Exam: Pitting Edema, Dependent Edema Neurologic Neuro Exam: Alert Psychiatric Psych Exam: Appropriate Responses Assessment/Plan Assessment Summary: Anemia of CKD, CKD Stage V Electrolyte Assessment: Hyperkalemia Problem List: (1) Stage 5 chronic kidney disease ICD Codes: N18.5 - Chronic kidney disease, stage 5 (2) DM (diabetes mellitus) ICD Codes: E11.9 - DM (diabetes mellitus) Status: Chronic (3) Chronic systolic CHF (congestive heart failure) ICD Codes: I50.22 - Chronic systolic CHF (congestive heart failure) Status: Chronic (4) Hyperkalemia ICD Codes: E87.5 - Hyperkalemia Status: Acute (5) Hypertension ICD Codes: I10 - Hypertension Status: Chronic (6) COPD exacerbation ICD Codes: J44.1 - COPD exacerbation Status: Acute (7) Respiratory distress ICD Codes: R06.00 - Respiratory distress Status: Acute (8) HIV (human immunodeficiency virus infection) ICD Codes: Z21 - HIV (human immunodeficiency virus infection) Status: Chronic (9) PNA (pneumonia) ICD Codes: J18.9 - PNA (pneumonia) Status: Acute (10) Hepatitis C ICD Codes: B19.20 - Hepatitis C Status: Chronic Plan Patient has been on dialysis last one was on 10/28 Vas-Cath was removed Patient is worsening renal failure with fluid accumulation EF of 20%, COPD Carbon dioxide retention Critically ill transferred to ICU Patient is on BiPAP Try Lasix 80 mg and Diamox 500 mg for diuresis Ask him about 40 catheter and patient refused Continue to diurese him monitor renal function Hyperkalemia treated with Kayexalate Adis Burt MD November 09, 2017 17:24
[2017-11-09] MEDS ORDERED: FUROSEMIDE 100 MG/10 ML VIAL IV PUSH ONE (17:30)
--- NOTE | 2017-11-09 19:22 | MB ---
cc: Zahida Brannon MD, V J MD DATE: 11/09/2017 REASON FOR CONSULTATION: Respiratory distress and pulmonary edema. HISTORY OF PRESENT ILLNESS: This is a 56-year-old man who has a prior history of HIV disease and history of chronic renal failure who has been in the hospital over the past 2 weeks with respiratory distress and altered mental status. The patient was suspected to have sepsis and was in the emergency room and started on antibiotic coverage for possibility of sepsis and uremia with encephalopathy. The patient also was placed on oxygen via nasal cannula and was admitted to the intensive care unit and was evaluated by nephrology. The patient had to be given bicarbonate, Kayexalate and dextrose to correct his potassium level. Subsequently, a renal consultation was obtained and he was monitored in the intensive care unit and was dialyzed. Over the past 10 days, his condition had stabilized but over the past 4 days, the patient had been deteriorating with increasing hypercapnia and hypoxemia and had been placed on BiPAP mask. The patient also received multiple pain medications as well as Ativan,n since he has chronic pain in the back. Infectious disease has been consulted and he has been placed on antibiotic coverage as well. His chest x-ray that was done this morning showed evidence of bilateral infiltrates with venous congestion as well as a right-sided effusion and cardiomegaly. The patient presently is awake and is on FiO2 of 50% and is responsive to questions and commands. He is not running any fever and he still has significant leg edema, but apparently it has gone down since his admission. PAST MEDICAL HISTORY: Included a history of HIV disease, history of diabetes mellitus type 2, history of chronic kidney disease stage IV, ischemic heart disease, history of hypertension, history of congestive heart failure, prior history of obstructive sleep apnea and history of hepatitis. PAST SURGICAL HISTORY: Includes AICD placement, rectal surgery and biopsy of the thigh. HABITS: The patient was a prior smoker, 1 pack per day for over 30 years. 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 ALLERGIES: BENAZEPRIL. CAPTOPRIL. FAMILY HISTORY: Noncontributory. REVIEW OF SYSTEMS: The patient is wearing a BiPAP mask at this time, unable to respond to all questions appropriately. He does, however, complain of shortness of breath, wheezing and he wants pain medications and requests morphine. He is also having some leg swelling, joint pains and hip pains. He has had chronic lymphedema of the lower extremities. PHYSICAL EXAMINATION: GENERAL: This is a middle aged, obese male who is responsive on BiPAP, moving all extremities and having 2+ leg edema with induration of the skin of the lower extremities. VITAL SIGNS: His blood pressure was 138/80, pulse is 96, respirations 20, and temperature is 97.5. HEENT: Head is normocephalic. Pupils are reactive. Sclerae were clear. Ears no inflammation. Nasal mucosa injected. NECK: Supple, no bruits or thyroid enlargement or lymphadenopathy. CHEST: Decreased breath sounds at the bases with wheezes throughout both lung gomez, prolonged expirations with occasional basilar crackles. HEART: Sounds are irregular S1 and S2. No murmur. No S3. ABDOMEN: Soft, protuberant and liver edge 2 fingerbreadths below the costal margin. Bowel sounds are active. EXTREMITIES: Decreased pulses. Lymphedema with pigmentation of the skin of the lower extremities. No calf tenderness. NEUROLOGIC: He is awake, responsive, moving all extremities and 1+ reflexes with no gross motor deficits. IMPRESSION: 1. Hypercapnic respiratory failure. 2. Pulmonary edema and right pleural effusion. 3. Acute renal failure. 4. Diabetes mellitus. 5. Anemia. 6. History of human immunodeficiency virus disease. 7. Urinary tract infection and sepsis. 8. Probable pneumonia. PLAN: The patient will be maintained on BiPAP 15/5, FiO2 of 40% to maintain saturations over 92. Blood gas studies to be repeated. He has been placed on Solu-Medrol 40 mg IV every 6 hours. Continue the antibiotic coverage including Zithromax 1200 mg p.o. and ceftazidime 1.25 grams q 8. We will use DuoNeb solution with a nebulizer q 6 hours. Chest x-ray to be repeated in the a.m. The patient will be monitored closely in the intensive care unit. If he should deteriorate, might need intubation and ventilator support. Thank you, Dr. Lee, for this consultation. V. Erasto Brannon MD VJD/ , 06:23 PM , 07:21 PM
[2017-11-10] VITALS (46 sets, daily range): BP systolic 136–170; BP diastolic 86–121; PULSE 73–112; RESP 12–33; TEMP 96.8–97.6; O2SAT 48–100
[2017-11-10] MEDS: INSULIN NovoLIN REGULAR SUPPLEMENTAL SCALE SQ SCH ×5 (03:26→20:00)
[2017-11-10] MEDS: CHLORHEXIDINE GLUCONATE 2 % 1 PACK (2 CLOTHS) TOP SCH (04:00)
[2017-11-10] MEDS: LORazepam 2 MG/ML VIAL IV PUSH PRN ×3 (04:07→19:23)
[2017-11-10] MEDS: methylPREDNISolone SOD SUCC 40 MG/1 ML VIAL IV PUSH SCH ×3 (06:50→21:46)
[2017-11-10] MEDS: hydrALAZINE HCL 25 MG TAB PO SCH ×3 (06:50→21:47)
[2017-11-10 07:55] LABS: HEMATOCRIT 28.7 % (39.0-51.0); HEMOGLOBIN 8.7 GM/DL (13.0-17.0); MEAN CELL VOLUME 85.2 FL (80.0-100.0); MEAN CORPUSCULAR HEMOGLOBIN 25.9 PG (27.0-34.0); MEAN CORPUSCULAR HGB CONC 30.4 % (32.0-36.0); MEAN PLATELET VOLUME 7.2 FL (7.0-11.0); PLATELET COUNT 183 TH/MM3 (150-450); RED BLOOD COUNT 3.37 MIL/MM3 (4.50-5.90); RED CELL DISTRIBUTION WIDTH 19.9 % (11.6-17.2); WHITE BLOOD COUNT 4.8 TH/MM3 (4.0-11.0)
[2017-11-10] MEDS ORDERED: MORPHINE SULFATE 4 MG/ML INJ IV PUSH PRN (08:00)
[2017-11-10] MEDS ORDERED: LORazepam 2 MG/ML VIAL IV PUSH ONE (08:00)
[2017-11-10] MEDS: AVIBACTAM IV SCH ×2 (08:21→16:06)
[2017-11-10] MEDS: NS IV SCH ×2 (08:21→16:06)
[2017-11-10] MEDS: CEFTAZIDIME IV SCH ×2 (08:21→16:06)
[2017-11-10] MEDS: SODIUM CHLORIDE 0.9% FLUSH 10 ML FLUSH IV FLUSH SCH ×2 (08:22→21:47)
[2017-11-10] MEDS: BUDESONIDE-FORMOTEROL 160/4.5 MCG INHALER INH SCH ×2 (08:22→21:48)
[2017-11-10] MEDS: RESP: ALBUTEROL 2.5 MG/IPRATROPIUM 0.5 MG NEB (SCH) NEB ×4 (08:33→20:03)
[2017-11-10 08:40] LABS: BICARBONATE 30.2 MEQ/L (21.0-32.0); CALCIUM 8.1 MG/DL (8.5-10.1); CREATININE 3.02 MG/DL (0.60-1.30); MAGNESIUM 2.3 MG/DL (1.5-2.5)
[2017-11-10] MEDS: ATOVAQUONE SUSP 750 MG/5 ML UDC PO SCH (09:00)
[2017-11-10] MEDS: FAMOTIDINE 20 MG TAB PO SCH ×2 (09:20→21:47)
[2017-11-10] MEDS: CARVEDILOL 12.5 MG TAB PO SCH ×2 (09:20→21:47)
[2017-11-10] MEDS: amLODIPine BESYLATE 5 MG TAB PO SCH (09:21)
--- NOTE | 2017-11-10 09:21 | RADRPT ---
EXAM DATE: 11/10/2017 9:14 AM EDT AGE/SEX: 56 years / Male INDICATIONS: Respiratory status. CLINICAL DATA: This is the patient's subsequent encounter. Patient reports that signs and symptoms h ave been present for 4 - 6 days and indicates a pain score of Nonresponsive. MEDICAL/SURGICAL HISTORY: Diabetes mellitus type II. Cardiovascular disease. Pacemaker. [place] [facility] [place]. . FINDINGS: On today's exam there appears to be some improvement with the bibasilar infiltrates. The heart size r emains diffusely enlarged and unchanged. There is some mild pulmonary venous congestion. Otherwise, n o other new or significant changes are demonstrated. The bony structures are stable. CONCLUSION: 1. Mild improving bibasilar infiltrates. 2. Stable prominent cardiomegaly. 3. Pulmonary venous congestion. Electronically signed by: Giuseppe Street MD 11/10/2017 9:19 AM EDT
--- NOTE | 2017-11-10 10:20 | HHI.PR ---
Subjective Remarks The patient was still on the BiPAP. He seemed lethargic. He was arousable. Discussed with nursing who stated that he was agitated earlier and required Ativan and morphine. Discussed with jail keeper. Objective Vitals Vital Signs Date Time Temp Pulse Resp B/P (MAP) Pulse Ox O2 Delivery O2 Flow Rate FiO2 11/10/17 10:00 88 11/10/17 09:00 104 11/10/17 08:34 89 30 11/10/17 08:22 32 11/10/17 08:00 97.0 104 32 168/121 (137) 92 11/10/17 07:00 96 Bi-Pap 25 11/10/17 07:00 112 11/10/17 06:00 85 11/10/17 05:00 89 11/10/17 04:09 97 25 11/10/17 04:00 91 11/10/17 04:00 91 27 169/117 (134) 94 11/10/17 03:00 93 11/10/17 03:00 96 Bi-Pap 25 11/10/17 02:00 84 11/10/17 01:35 95 25 11/10/17 01:00 86 11/10/17 00:00 97.0 80 170/109 (129) 11/10/17 00:00 80 11/09/17 23:35 95 25 11/09/17 23:00 87 11/09/17 23:00 95 Nasal Cannula 6.00 11/09/17 22:00 87 11/09/17 21:00 88 11/09/17 20:00 99 11/09/17 20:00 97.2 99 19 211/101 (137) 99 11/09/17 19:50 98 25 11/09/17 19:00 99 11/09/17 19:00 91 Nasal Cannula 4.00 11/09/17 18:00 87 11/09/17 17:00 83 11/09/17 16:00 80 14 156/103 (120) 95 11/09/17 16:00 80 11/09/17 15:13 97 25 11/09/17 15:00 97.0 89 21 159/96 (117) 100 11/09/17 15:00 96 Bi-Pap 25 11/09/17 15:00 89 11/09/17 14:00 94 11/09/17 12:04 94 40 11/09/17 12:00 96.8 87 21 139/81 (100) 97 I/O 11/09/17 11/09/17 11/09/17 11/10/17 11/10/17 11/10/17 07:00 15:00 23:00 07:00 15:00 23:00 Intake Total 290 ml 60 ml 200 ml Output Total 400 ml 650 ml 800 ml Balance -110 ml -590 ml -600 ml Intake Oral 240 ml 60 ml 200 ml IV Total 50 ml Output Urine Total 400 ml 650 ml 800 ml # Bowel Movements 1 3 Result Diagram: 11/10/17 0730 11/10/17 0730 Imaging Last Impressions Chest X-Ray 11/10/17 0000 Signed Impressions: CONCLUSION: 1. Mild improving bibasilar infiltrates. 2. Stable prominent cardiomegaly. 3. Pulmonary venous congestion. Renal Ultrasound 10/26/17 0000 Signed Impressions: Service Date/Time: Thursday, October 26, 2017 20:06 - CONCLUSION: 1. There is some increased echogenicity of the renal parenchyma suggestive of chronic medical renal disease. 2. No evidence of hydronephrosis. 3. Small 1.1 cm cyst upper pole left kidney. Giuseppe Street MD Objective Remarks GENERAL: On BiPAP. HEENT: Normocephalic. Atraumatic. Pupils are equal and reactive, sclerae are anicteric. NECK: Trachea is midline. There is no JVD CHEST: Diminished breath sounds bilaterally, no wheezing. CARDIOVASCULAR: Regular S1 and S2. No murmurs appreciated. ABDOMEN: Soft, nontender, nondistended. No guarding. Bowel sounds are present. No hepatomegaly or splenomegaly appreciated. MUSCULOSKELETAL: Chronic nonpitting edema, 3+ down the length of the right leg. Left lower extremity is about 1+ edema. NEUROLOGICAL: Lethargic, spontaneously moving all extremities. Procedures 10/27/17 right femoral Vas-Cath placement A/P Assessment and Plan Acute hypercapnic respiratory failure/ COPD ABG 11/09 with marked hypercapnia. Improving on BiPAP. Pulmonology consult appreciated. - Continue BiPAP. Discussed with jail keeper, may need intubation if does not continue to improve. - Bronchodilators, continue Solumederol. - Symbicort 160/4.5 Q12 - Noted that CT chest has been ordered per infectious disease, however, pt refused. - follow up with pulmonology. Acute metabolic encephalopathy/ Uremic encephalopathy/ History of illicit substance use UDS + Opiates on admission. - Monitor neuro status- patient awake and alert with clear speech- but drifts to sleep easily. - Avoid long-acting sedatives. - BiPAP as needed. Chronic systolic heart failure/ Hypertension/ Pulmonary hypertension Echo showed EF 20%, mod-severe pulm HTN PAP 65mmHg - Coreg 12.5mg BID, add Hydralazine 25mg Q8 and amlodipine 5 mg daily. - volume management per nephrology. Acute kidney injury Superimposed on chronic renal insufficiency, unknown stage. Off hemodialysis at this time. Renal US: There is increased echogenicity of the renal parenchyma suggestive of chronic medical renal disease; No evidence of hydronephrosis; Small 1.1 cm cyst upper pole left kidney. Still with hyperkalemia. - Kayexalate x 1. Improved. - dialysis per nephrology. - follow BMP and avoid nephrotoxins. HIV/ Sepsis Low CD4 (14). Urine culture : ESBL Kleb and e coli. - Continue Abx per ID - On PCP and MAC prophylaxis per ID. Bactrim 1 tab p.o. daily, azithromycin 1200 mg p.o. weekly. - cont Avycaz (ASP criteria: CRE Kleb pneumo) x 14 days. History of chronic pain Has been sedated. - DC IV Morphine - caution with PO pain meds. Hyperglycemia Exacerbated by steroids. Last A1c 6.3%. - insulin sliding scale. PPx: Heparin Dimitri Lee DO November 10, 2017 10:20
[2017-11-10] MEDS: HEPARIN SODIUM - SQ 10,000 UNITS/ML VIAL SQ SCH ×2 (11:08→21:47)
--- NOTE | 2017-11-10 13:10 | HHI.NPPN ---
Subjective General Problems: Anemia, Edema, Hypertension Renal Failure: Stage IV History of Present Illness 56-year-old male with a past medical history of hypertension, history of HIV, chronic lymphedema of the legs, diabetes mellitus, sleep apnea, ischemic heart disease, was brought to the hospital with altered mental status and not feeling well. I was called to see the patient because of elevated BUN and creatinine and high potassium. The patient has known history of chronic kidney disease and patient was seen by me when he was here in March last year. At that time, he had creatinine in the range of 2.3-3.0 and he was discharged with a creatinine of 2.5 and now he came with a creatinine of 5.0 and also potassium of 7.3. Additional Remarks Falling asleep when talking to patient . On BiPAP increasing edema Review of Systems Cardiovascular Cardiac Remarks denies any Chest pain Gastrointestinal GI Remarks denies any abdominal pain Objective Data Data Vital Signs Date Time Temp Pulse Resp B/P (MAP) Pulse Ox O2 Delivery O2 Flow Rate FiO2 11/10/17 12:00 96.8 80 18 136/86 (103) 96 11/10/17 12:00 80 11/10/17 11:00 97 Bi-Pap 25 11/10/17 10:00 88 11/10/17 09:00 104 11/10/17 08:34 89 30 11/10/17 08:22 32 11/10/17 08:00 97.0 104 32 168/121 (137) 92 11/10/17 07:00 96 Bi-Pap 25 11/10/17 07:00 112 11/10/17 06:00 85 11/10/17 05:00 89 11/10/17 04:09 97 25 11/10/17 04:00 91 11/10/17 04:00 91 27 169/117 (134) 94 11/10/17 03:00 93 11/10/17 03:00 96 Bi-Pap 25 11/10/17 02:00 84 11/10/17 01:35 95 25 11/10/17 01:00 86 11/10/17 00:00 97.0 80 170/109 (129) 11/10/17 00:00 80 11/09/17 23:35 95 25 11/09/17 23:00 87 11/09/17 23:00 95 Nasal Cannula 6.00 11/09/17 22:00 87 11/09/17 21:00 88 11/09/17 20:00 99 11/09/17 20:00 97.2 99 19 211/101 (137) 99 11/09/17 19:50 98 25 11/09/17 19:00 99 11/09/17 19:00 91 Nasal Cannula 4.00 11/09/17 18:00 87 11/09/17 17:00 83 11/09/17 16:00 80 14 156/103 (120) 95 11/09/17 16:00 80 11/09/17 15:13 97 25 11/09/17 15:00 97.0 89 21 159/96 (117) 100 11/09/17 15:00 96 Bi-Pap 25 11/09/17 15:00 89 11/09/17 14:00 94 -: 11/10/17 0730 11/10/17 0730 Physical Exam General Appearance: No Acute Distress Eyes Eye Exam: Pupils Equal Throat Throat Exam: Oral Mucosa [place] & Moist Pulmonary Resp Exam: Rhonchi, Decreased Bases, Diminished Breath Sounds Cardiology CV Exam: Regular Gastrointestinal/Abdomen GI Exam: Soft, Non-Tender, Bowel Sounds Present, Distended Integumentary Skin Exam: Clear, Warm Extremeties Extremities Exam: Pitting Edema, Dependent Edema Neurologic Neuro Exam: Alert Psychiatric Psych Exam: Appropriate Responses Assessment/Plan Assessment Summary: Anemia of CKD, CKD Stage V Electrolyte Assessment: Hyperkalemia Problem List: (1) Stage 5 chronic kidney disease ICD Codes: N18.5 - Chronic kidney disease, stage 5 (2) DM (diabetes mellitus) ICD Codes: E11.9 - DM (diabetes mellitus) Status: Chronic (3) Chronic systolic CHF (congestive heart failure) ICD Codes: I50.22 - Chronic systolic CHF (congestive heart failure) Status: Chronic (4) Hyperkalemia ICD Codes: E87.5 - Hyperkalemia Status: Acute (5) Hypertension ICD Codes: I10 - Hypertension Status: Chronic (6) COPD exacerbation ICD Codes: J44.1 - COPD exacerbation Status: Acute (7) Respiratory distress ICD Codes: R06.00 - Respiratory distress Status: Acute (8) HIV (human immunodeficiency virus infection) ICD Codes: Z21 - HIV (human immunodeficiency virus infection) Status: Chronic (9) PNA (pneumonia) ICD Codes: J18.9 - PNA (pneumonia) Status: Acute (10) Hepatitis C ICD Codes: B19.20 - Hepatitis C Status: Chronic Plan Patient has been on dialysis last one was on 10/28 Vas-Cath was removed Patient is worsening renal failure with fluid accumulation EF of 20%, COPD Carbon dioxide retention Critically ill transferred to ICU Patient is on BiPAP on Lasix 80 mg and Diamox 500 mg for diuresis 1400 cc of urine yesterday Ask him about catheter and patient refused Continue to diurese him monitor renal function Dr. Ga to follow Adis Burt MD November 10, 2017 13:10
[2017-11-10] MEDS: FUROSEMIDE 100 MG/10 ML VIAL IV PUSH SCH (13:53)
[2017-11-10] MEDS: QUEtiapine FUMARATE 25 MG TAB PO SCH (14:45)
--- NOTE | 2017-11-10 14:52 | HHI.PR ---
Subjective Remarks He is awake but lethargic. On BIPAP and FIO2 40 %. ABG'S are poor. Objective Vital Signs Date Time Temp Pulse Resp B/P (MAP) Pulse Ox O2 Delivery O2 Flow Rate FiO2 11/10/17 13:00 83 11/10/17 12:00 96.8 80 18 136/86 (103) 96 11/10/17 12:00 80 11/10/17 11:00 97 Bi-Pap 25 11/10/17 10:00 88 11/10/17 09:00 104 11/10/17 08:34 89 30 11/10/17 08:22 32 11/10/17 08:00 97.0 104 32 168/121 (137) 92 11/10/17 07:00 96 Bi-Pap 25 11/10/17 07:00 112 11/10/17 06:00 85 11/10/17 05:00 89 11/10/17 04:09 97 25 11/10/17 04:00 91 11/10/17 04:00 91 27 169/117 (134) 94 11/10/17 03:00 93 11/10/17 03:00 96 Bi-Pap 25 11/10/17 02:00 84 11/10/17 01:35 95 25 11/10/17 01:00 86 11/10/17 00:00 97.0 80 170/109 (129) 11/10/17 00:00 80 11/09/17 23:35 95 25 11/09/17 23:00 87 11/09/17 23:00 95 Nasal Cannula 6.00 11/09/17 22:00 87 11/09/17 21:00 88 11/09/17 20:00 99 11/09/17 20:00 97.2 99 19 211/101 (137) 99 11/09/17 19:50 98 25 11/09/17 19:00 99 11/09/17 19:00 91 Nasal Cannula 4.00 11/09/17 18:00 87 11/09/17 17:00 83 11/09/17 16:00 80 14 156/103 (120) 95 11/09/17 16:00 80 11/09/17 15:13 97 25 11/09/17 15:00 97.0 89 21 159/96 (117) 100 11/09/17 15:00 96 Bi-Pap 25 11/09/17 15:00 89 I/O 11/09/17 11/09/17 11/09/17 11/10/17 11/10/17 11/10/17 07:00 15:00 23:00 07:00 15:00 23:00 Intake Total 290 ml 60 ml 200 ml Output Total 400 ml 650 ml 800 ml Balance -110 ml -590 ml -600 ml Intake Oral 240 ml 60 ml 200 ml IV Total 50 ml Output Urine Total 400 ml 650 ml 800 ml # Bowel Movements 1 3 Result Diagram: 11/10/17 0730 11/10/17 0730 Objective Remarks GENERAL: This is a middle aged, obese male who is responsive on BiPAP, moving all extremities and having 2+ leg edema with induration of the skin of the lower extremities. HEENT: Head is normocephalic. Pupils are reactive. Sclerae were clear. Ears no inflammation. Nasal mucosa injected. NECK: Supple, no bruits or thyroid enlargement or lymphadenopathy. CHEST: Decreased breath sounds at the bases with wheezes throughout both lung gomez, prolonged expirations with occasional basilar crackles. HEART: Sounds are irregular S1 and S2. No murmur. No S3. ABDOMEN: Soft, protuberant and liver edge 2 fingerbreadths below the costal margin. Bowel sounds are active. EXTREMITIES: Decreased pulses. Lymphedema with pigmentation of the skin of the lower extremities. No calf tenderness. NEUROLOGIC: He is awake, responsive, moving all extremities and 1+ reflexes with no gross motor deficits. Assessment and Plan Assessment and Plan IMPRESSION: 1. Hypercapnic respiratory failure. 2. Pulmonary edema and right pleural effusion. 3. Acute renal failure. 4. Diabetes mellitus. 5. Anemia. 6. History of human immunodeficiency virus disease. 7. Urinary tract infection and sepsis. 8. Probable pneumonia. Plan : 1. Continue nebs qid , duoneb 2. BIPAP16/6, FIo2 28 % 3. Continue antibiotics per ID 4. CXR,CBC,BMP, ABG in am 5. Cont Diuretic daily 6. Solumedrol 40 mg IV Q8H Zahida Brannon MD November 10, 2017 14:52
[2017-11-10] MEDS ORDERED: CHLORHEXIDINE GLUCONATE 2 % 1 PACK (2 CLOTHS)(extra cloths) TOPICAL PRN (20:45)
[2017-11-11] VITALS (46 sets, daily range): BP systolic 120–162; BP diastolic 82–110; PULSE 72–101; RESP 15–28; TEMP 97.7–98.3; O2SAT 96–100
[2017-11-11] MEDS: INSULIN NovoLIN REGULAR SUPPLEMENTAL SCALE SQ SCH ×6 (00:48→20:00)
[2017-11-11] MEDS: cloNIDine HCL 0.1 MG TAB PO PRN (01:15)
[2017-11-11] MEDS: CHLORHEXIDINE GLUCONATE 2 % 1 PACK (2 CLOTHS)(taper/protocol) TOPICAL SCH (04:00)
[2017-11-11] MEDS: CHLORHEXIDINE GLUCONATE 2 % 1 PACK (2 CLOTHS) TOP SCH (04:45)
[2017-11-11] MEDS: hydrALAZINE HCL 25 MG TAB PO SCH ×3 (04:53→20:15)
[2017-11-11] MEDS: methylPREDNISolone SOD SUCC 40 MG/1 ML VIAL IV PUSH SCH ×3 (04:53→20:13)
[2017-11-11 05:52] LABS: BICARBONATE 27.9 MEQ/L (21.0-32.0); CALCIUM 7.8 MG/DL (8.5-10.1); CREATININE 2.86 MG/DL (0.60-1.30); MAGNESIUM 2.2 MG/DL (1.5-2.5)
[2017-11-11 06:55] LABS: AUTOMATED NEUTROPHIL # 4.4 TH/MM3 (1.8-7.7); BASOPHIL % 0.6 % (0.0-2.0); EOSINOPHIL % 0.2 % (0.0-4.0); HEMATOCRIT 31.5 % (39.0-51.0); HEMOGLOBIN 9.5 GM/DL (13.0-17.0); LYMPH % 3.1 % (9.0-44.0); LYMPHOCYTE # 0.2 TH/MM3 (1.0-4.8); MEAN CORPUSCULAR HEMOGLOBIN 25.4 PG (27.0-34.0); MEAN CORPUSCULAR HGB CONC 30.3 % (32.0-36.0); MEAN PLATELET VOLUME 7.6 FL (7.0-11.0); MONO % 6.6 % (0.0-8.0); MONOCYTE # 0.3 TH/MM3 (0-0.9); NEUT % 89.5 % (16.0-70.0); PLATELET COUNT 129 TH/MM3 (150-450); RED BLOOD COUNT 3.75 MIL/MM3 (4.50-5.90); RED CELL DISTRIBUTION WIDTH 20.8 % (11.6-17.2); WHITE BLOOD COUNT 4.9 TH/MM3 (4.0-11.0)
[2017-11-11] MEDS: RESP: ALBUTEROL 2.5 MG/IPRATROPIUM 0.5 MG NEB (SCH) NEB ×4 (08:24→20:20)
[2017-11-11 08:25] LABS: INTERNATIONAL NORMALIZED RATIO 1.3 RATIO; PROTHROMBIN TIME - PATIENT 13.6 SEC (9.8-11.6)
[2017-11-11] MEDS: FAMOTIDINE 20 MG TAB PO SCH ×2 (09:00→20:13)
[2017-11-11] MEDS: QUEtiapine FUMARATE 25 MG TAB PO SCH ×2 (09:00→12:00)
[2017-11-11] MEDS ORDERED: SODIUM POLYSTYRENE SULFONATE SUSP 15 GM/60 ML CUP PO ONE (09:00)
[2017-11-11] MEDS: amLODIPine BESYLATE 5 MG TAB PO SCH (09:00)
[2017-11-11] MEDS: ATOVAQUONE SUSP 750 MG/5 ML UDC PO SCH (09:00)
[2017-11-11] MEDS: CARVEDILOL 12.5 MG TAB PO SCH ×2 (09:00→20:13)
[2017-11-11] MEDS: AZITHROMYCIN 600 MG TAB PO SCH (09:00)
--- NOTE | 2017-11-11 10:07 | HHI.PR ---
Subjective Remarks The patient was lethargic. He was minimally responsive to sternal rub. Discussed with nursing and photographic restorer. Objective Vitals Vital Signs Date Time Temp Pulse Resp B/P (MAP) Pulse Ox O2 Delivery O2 Flow Rate FiO2 11/11/17 09:45 100 45 11/11/17 08:23 100 Nasal Cannula 2.00 11/11/17 06:00 92 11/11/17 05:30 90 22 100 11/11/17 05:15 89 24 100 11/11/17 05:00 86 19 162/101 (121) 100 11/11/17 04:45 87 27 11/11/17 04:30 85 20 11/11/17 04:15 85 20 11/11/17 04:01 90 25 160/96 (117) 96 11/11/17 04:00 100 Bi-Pap 25 11/11/17 04:00 91 11/11/17 04:00 91 24 99 11/11/17 04:00 97.9 11/11/17 03:45 75 17 100 11/11/17 03:30 76 18 100 11/11/17 03:15 81 17 100 11/11/17 03:00 83 15 120/82 (95) 100 11/11/17 02:45 85 20 100 11/11/17 02:30 89 23 100 11/11/17 02:15 87 20 100 11/11/17 02:00 92 23 127/86 (100) 100 11/11/17 02:00 92 11/11/17 01:45 90 24 100 11/11/17 01:30 93 23 100 11/11/17 01:15 91 27 100 11/11/17 01:00 90 23 140/103 (115) 100 11/11/17 00:45 89 23 100 11/11/17 00:30 88 23 100 11/11/17 00:15 91 28 100 11/11/17 00:00 100 Bi-Pap 25 11/11/17 00:00 98.0 11/11/17 00:00 90 26 133/101 (112) 100 11/11/17 00:00 90 11/10/17 23:45 91 26 100 11/10/17 23:30 93 30 100 11/10/17 23:15 93 33 100 11/10/17 23:00 85 31 147/100 (116) 11/10/17 22:45 86 31 11/10/17 22:30 82 22 11/10/17 22:15 81 25 11/10/17 22:10 83 28 147/102 (117) 11/10/17 22:01 86 27 140/105 (117) 98 11/10/17 22:00 89 11/10/17 22:00 89 27 99 11/10/17 21:45 79 21 97 11/10/17 21:30 80 24 99 11/10/17 21:15 82 23 96 11/10/17 21:00 85 25 156/103 (120) 97 11/10/17 20:45 79 15 99 11/10/17 20:30 76 12 98 11/10/17 20:15 75 13 98 11/10/17 20:01 99 25 11/10/17 20:00 84 23 158/105 (122) 100 11/10/17 20:00 97.6 11/10/17 20:00 84 11/10/17 20:00 100 Bi-Pap 25 11/10/17 19:46 88 27 158/106 (123) 11/10/17 19:45 89 26 11/10/17 19:30 85 25 62 11/10/17 19:25 87 24 154/109 (124) 48 11/10/17 19:15 84 25 11/10/17 19:00 90 11/10/17 18:00 73 11/10/17 17:51 100 25 11/10/17 17:00 89 11/10/17 16:00 97.2 75 17 141/88 (105) 100 11/10/17 16:00 85 11/10/17 15:00 100 Bi-Pap 25 11/10/17 14:00 86 11/10/17 13:00 83 11/10/17 12:00 96.8 80 18 136/86 (103) 96 11/10/17 12:00 80 11/10/17 11:00 97 Bi-Pap 25 I/O 11/10/17 11/10/17 11/10/17 11/11/17 11/11/17 11/11/17 07:00 15:00 23:00 07:00 15:00 23:00 Intake Total 200 ml 50 ml 80 ml 420 ml Output Total 800 ml 600 ml Balance -600 ml 50 ml -520 ml 420 ml Intake Oral 200 ml 30 ml 420 ml IV Total 50 ml 50 ml Output Urine Total 800 ml 600 ml # Voids 5 # Bowel Movements 3 0 Result Diagram: 11/11/17 0510 11/11/17 0510 Imaging Last Impressions Chest X-Ray 11/10/17 0000 Signed Impressions: CONCLUSION: 1. Mild improving bibasilar infiltrates. 2. Stable prominent cardiomegaly. 3. Pulmonary venous congestion. Renal Ultrasound 10/26/17 0000 Signed Impressions: Service Date/Time: Thursday, October 26, 2017 20:06 - CONCLUSION: 1. There is some increased echogenicity of the renal parenchyma suggestive of chronic medical renal disease. 2. No evidence of hydronephrosis. 3. Small 1.1 cm cyst upper pole left kidney. Giuseppe Street MD Objective Remarks GENERAL: No distress. HEENT: Normocephalic. Atraumatic. Pupils are equal and reactive, sclerae are anicteric. NECK: Trachea is midline. There is no JVD CHEST: Diminished breath sounds bilaterally, no wheezing. CARDIOVASCULAR: Regular S1 and S2. No murmurs appreciated. ABDOMEN: Soft, nontender, nondistended. No guarding. Bowel sounds are present. No hepatomegaly or splenomegaly appreciated. MUSCULOSKELETAL: Chronic nonpitting edema, 3+ down the length of the right leg. Left lower extremity is about 1+ edema. NEUROLOGICAL: Lethargic, spontaneously moving all extremities. Procedures 10/27/17 right femoral Vas-Cath placement A/P Assessment and Plan Acute hypercapnic respiratory failure/ COPD ABG 11/09 with marked hypercapnia. Improving on BiPAP. Pulmonology consult appreciated. - Continue BiPAP. Discussed with photographic restorer, may need intubation if does not improve. - Bronchodilators, continue Solumederol. - Symbicort 160/4.5 Q12 - Noted that CT chest has been ordered per infectious disease, however, pt refused. - follow up with pulmonology. Acute metabolic encephalopathy/ Uremic encephalopathy/ History of illicit substance use UDS + Opiates on admission. Currently lethargic. - D/c all sedatives and monitor neuro status. - Haldol IM as needed. Chronic systolic heart failure/ Hypertension/ Pulmonary hypertension Echo showed EF 20%, mod-severe pulm HTN PAP 65mmHg - Coreg 12.5mg BID, add Hydralazine 25mg Q8 and amlodipine 5 mg daily. - volume management per nephrology. Acute kidney injury Superimposed on chronic renal insufficiency, unknown stage. Off hemodialysis at this time. Renal US: There is increased echogenicity of the renal parenchyma suggestive of chronic medical renal disease; No evidence of hydronephrosis; Small 1.1 cm cyst upper pole left kidney. Still with hyperkalemia. - Kayexalate supp 11/11. - follow up with nephrology. - follow BMP and avoid nephrotoxins. HIV/ Sepsis Low CD4 (14). Urine culture : ESBL Kleb and e coli. - Continue Abx per ID - On PCP and MAC prophylaxis per ID. Bactrim 1 tab p.o. daily, azithromycin 1200 mg p.o. weekly. - cont Avycaz (ASP criteria: CRE Kleb pneumo) x 14 days. History of chronic pain Has been sedated. - DC IV Morphine - caution with PO pain meds. Hyperglycemia Exacerbated by steroids. Last A1c 6.3%. - insulin sliding scale. PPx: Heparin Discharge Planning Continue BiPAP. May need intubation if does not improve. Keep in ICU. Dimitri Lee DO November 11, 2017 10:07
[2017-11-11] MEDS ORDERED: SODIUM POLYSTYRENE SULFONATE 30 GM/120 ML ENEMA RECTAL ONE (10:15)
[2017-11-11] MEDS: HEPARIN SODIUM - SQ 10,000 UNITS/ML VIAL SQ SCH (10:55)
[2017-11-11] MEDS: FUROSEMIDE 100 MG/10 ML VIAL IV PUSH SCH (10:57)
[2017-11-11] MEDS: SODIUM CHLORIDE 0.9% FLUSH 10 ML FLUSH IV FLUSH SCH ×2 (10:58→20:13)
[2017-11-11] MEDS: CEFTAZIDIME IV SCH ×4 (10:59→16:23)
[2017-11-11] MEDS: NS IV SCH ×4 (10:59→16:23)
[2017-11-11] MEDS: AVIBACTAM IV SCH ×4 (10:59→16:23)
[2017-11-11] MEDS: BUDESONIDE-FORMOTEROL 160/4.5 MCG INHALER INH SCH ×2 (11:00→20:13)
--- NOTE | 2017-11-11 12:43 | HHI.NPPN ---
Subjective General Problems: Anemia, Edema, Hypertension Renal Failure: Stage IV History of Present Illness 56-year-old male with a past medical history of hypertension, history of HIV, chronic lymphedema of the legs, diabetes mellitus, sleep apnea, ischemic heart disease, was brought to the hospital with altered mental status and not feeling well. I was called to see the patient because of elevated BUN and creatinine and high potassium. The patient has known history of chronic kidney disease and patient was seen by me when he was here in March last year. At that time, he had creatinine in the range of 2.3-3.0 and he was discharged with a creatinine of 2.5 and now he came with a creatinine of 5.0 and also potassium of 7.3. Additional Remarks Patient is more lethargic, and now on BIPAP, with resp. distress. Review of Systems Cardiovascular Cardiac Remarks denies any Chest pain Gastrointestinal GI Remarks denies any abdominal pain Objective Data Data Vital Signs Date Time Temp Pulse Resp B/P (MAP) Pulse Ox O2 Delivery O2 Flow Rate FiO2 11/11/17 11:47 100 35 11/11/17 10:00 72 11/11/17 09:45 100 45 11/11/17 09:00 83 11/11/17 08:23 100 Nasal Cannula 2.00 11/11/17 08:00 94 11/11/17 08:00 97.7 94 21 152/99 (116) 100 11/11/17 07:00 90 11/11/17 07:00 100 Nasal Cannula 4.00 11/11/17 06:00 92 11/11/17 05:30 90 22 100 11/11/17 05:15 89 24 100 11/11/17 05:00 86 19 162/101 (121) 100 11/11/17 04:45 87 27 11/11/17 04:30 85 20 11/11/17 04:15 85 20 11/11/17 04:01 90 25 160/96 (117) 96 11/11/17 04:00 100 Bi-Pap 25 11/11/17 04:00 91 11/11/17 04:00 91 24 99 11/11/17 04:00 97.9 11/11/17 03:45 75 17 100 11/11/17 03:30 76 18 100 11/11/17 03:15 81 17 100 11/11/17 03:00 83 15 120/82 (95) 100 11/11/17 02:45 85 20 100 11/11/17 02:30 89 23 100 11/11/17 02:15 87 20 100 11/11/17 02:00 92 23 127/86 (100) 100 11/11/17 02:00 92 11/11/17 01:45 90 24 100 11/11/17 01:30 93 23 100 11/11/17 01:15 91 27 100 11/11/17 01:00 90 23 140/103 (115) 100 11/11/17 00:45 89 23 100 11/11/17 00:30 88 23 100 11/11/17 00:15 91 28 100 11/11/17 00:00 100 Bi-Pap 25 11/11/17 00:00 98.0 11/11/17 00:00 90 26 133/101 (112) 100 11/11/17 00:00 90 11/10/17 23:45 91 26 100 11/10/17 23:30 93 30 100 11/10/17 23:15 93 33 100 11/10/17 23:00 85 31 147/100 (116) 11/10/17 22:45 86 31 11/10/17 22:30 82 22 11/10/17 22:15 81 25 11/10/17 22:10 83 28 147/102 (117) 11/10/17 22:01 86 27 140/105 (117) 98 11/10/17 22:00 89 11/10/17 22:00 89 27 99 11/10/17 21:45 79 21 97 11/10/17 21:30 80 24 99 11/10/17 21:15 82 23 96 11/10/17 21:00 85 25 156/103 (120) 97 11/10/17 20:45 79 15 99 11/10/17 20:30 76 12 98 11/10/17 20:15 75 13 98 11/10/17 20:01 99 25 11/10/17 20:00 84 23 158/105 (122) 100 11/10/17 20:00 97.6 11/10/17 20:00 84 11/10/17 20:00 100 Bi-Pap 25 11/10/17 19:46 88 27 158/106 (123) 11/10/17 19:45 89 26 5/27/18 19:30 85 25 62 11/10/17 19:25 87 24 154/109 (124) 48 11/10/17 19:15 84 25 11/10/17 19:00 90 11/10/17 18:00 73 11/10/17 17:51 100 25 11/10/17 17:00 89 11/10/17 16:00 97.2 75 17 141/88 (105) 100 11/10/17 16:00 85 11/10/17 15:00 100 Bi-Pap 25 11/10/17 14:00 86 11/10/17 13:00 83 -: 11/11/17 0510 11/11/17 0510 Physical Exam General Appearance Remarks On BIPAP and resp. distress. Eyes Eye Exam: Pupils Equal Throat Throat Exam: Oral Mucosa [place] & Moist Pulmonary Resp Exam: Rhonchi, Decreased Bases, Diminished Breath Sounds Cardiology CV Exam: Regular Gastrointestinal/Abdomen GI Exam: Soft, Non-Tender, Bowel Sounds Present, Distended Integumentary Skin Exam: Clear, Warm Extremeties Extremities Exam: Pitting Edema, Dependent Edema Neurologic Neuro Exam: Obtunded Assessment/Plan Assessment Summary: Anemia of CKD, CKD Stage V Electrolyte Assessment: Hyperkalemia Problem List: (1) Stage 5 chronic kidney disease ICD Codes: N18.5 - Chronic kidney disease, stage 5 (2) DM (diabetes mellitus) ICD Codes: E11.9 - DM (diabetes mellitus) Status: Chronic (3) Chronic systolic CHF (congestive heart failure) ICD Codes: I50.22 - Chronic systolic CHF (congestive heart failure) Status: Chronic (4) Hyperkalemia ICD Codes: E87.5 - Hyperkalemia Status: Acute (5) Hypertension ICD Codes: I10 - Hypertension Status: Chronic (6) COPD exacerbation ICD Codes: J44.1 - COPD exacerbation Status: Acute (7) Respiratory distress ICD Codes: R06.00 - Respiratory distress Status: Acute (8) HIV (human immunodeficiency virus infection) ICD Codes: Z21 - HIV (human immunodeficiency virus infection) Status: Chronic (9) PNA (pneumonia) ICD Codes: J18.9 - PNA (pneumonia) Status: Acute (10) Hepatitis C ICD Codes: B19.20 - Hepatitis C Status: Chronic Plan Patient has been on dialysis last one was on 10/28 Vas-Cath was removed Patient is worsening renal failure with fluid accumulation EF of 20%, COPD Carbon dioxide retention Critically ill transferred to ICU Patient is on BiPAP on Lasix 80 mg and Diamox 500 mg for diuresis He has again Co2 retention, on BIPAP. He has COPD with recurrent resp. failure. Creatinine is slightly better. Continue diuretics. Millicent Ga MD November 11, 2017 12:43
--- NOTE | 2017-11-11 14:26 | HHI.PR ---
Subjective Remarks He is not responsive today. On BIPAP and FIO2 25 %. ABG'S are poor. Objective Vital Signs Date Time Temp Pulse Resp B/P (MAP) Pulse Ox O2 Delivery O2 Flow Rate FiO2 11/11/17 12:00 97.8 90 24 143/110 (121) 11/11/17 12:00 90 11/11/17 12:00 97.8 11/11/17 11:47 100 35 11/11/17 11:00 100 Bi-Pap 25 11/11/17 11:00 74 11/11/17 10:00 72 11/11/17 09:45 100 45 11/11/17 09:00 83 11/11/17 08:23 100 Nasal Cannula 2.00 11/11/17 08:00 94 11/11/17 08:00 97.7 94 21 152/99 (116) 100 11/11/17 07:00 90 11/11/17 07:00 100 Nasal Cannula 4.00 11/11/17 06:00 92 11/11/17 05:30 90 22 100 11/11/17 05:15 89 24 100 11/11/17 05:00 86 19 162/101 (121) 100 11/11/17 04:45 87 27 11/11/17 04:30 85 20 11/11/17 04:15 85 20 11/11/17 04:01 90 25 160/96 (117) 96 11/11/17 04:00 100 Bi-Pap 25 11/11/17 04:00 91 11/11/17 04:00 91 24 99 11/11/17 04:00 97.9 11/11/17 03:45 75 17 100 11/11/17 03:30 76 18 100 11/11/17 03:15 81 17 100 11/11/17 03:00 83 15 120/82 (95) 100 11/11/17 02:45 85 20 100 11/11/17 02:30 89 23 100 11/11/17 02:15 87 20 100 11/11/17 02:00 92 23 127/86 (100) 100 11/11/17 02:00 92 11/11/17 01:45 90 24 100 11/11/17 01:30 93 23 100 11/11/17 01:15 91 27 100 11/11/17 01:00 90 23 140/103 (115) 100 11/11/17 00:45 89 23 100 11/11/17 00:30 88 23 100 11/11/17 00:15 91 28 100 11/11/17 00:00 100 Bi-Pap 25 11/11/17 00:00 98.0 11/11/17 00:00 90 26 133/101 (112) 100 11/11/17 00:00 90 11/10/17 23:45 91 26 100 11/10/17 23:30 93 30 100 11/10/17 23:15 93 33 100 11/10/17 23:00 85 31 147/100 (116) 11/10/17 22:45 86 31 11/10/17 22:30 82 22 11/10/17 22:15 81 25 11/10/17 22:10 83 28 147/102 (117) 11/10/17 22:01 86 27 140/105 (117) 98 11/10/17 22:00 89 11/10/17 22:00 89 27 99 11/10/17 21:45 79 21 97 11/10/17 21:30 80 24 99 11/10/17 21:15 82 23 96 11/10/17 21:00 85 25 156/103 (120) 97 11/10/17 20:45 79 15 99 11/10/17 20:30 76 12 98 11/10/17 20:15 75 13 98 11/10/17 20:01 99 25 11/10/17 20:00 84 23 158/105 (122) 100 11/10/17 20:00 97.6 11/10/17 20:00 84 11/10/17 20:00 100 Bi-Pap 25 11/10/17 19:46 88 27 158/106 (123) 11/10/17 19:45 89 26 11/10/17 19:30 85 25 62 11/10/17 19:25 87 24 154/109 (124) 48 11/10/17 19:15 84 25 11/10/17 19:00 90 11/10/17 18:00 73 11/10/17 17:51 100 25 11/10/17 17:00 89 11/10/17 16:00 97.2 75 17 141/88 (105) 100 11/10/17 16:00 85 11/10/17 15:00 100 Bi-Pap 25 I/O 11/10/17 11/10/17 11/10/17 11/11/17 11/11/17 11/11/17 07:00 15:00 23:00 07:00 15:00 23:00 Intake Total 200 ml 50 ml 80 ml 420 ml Output Total 800 ml 600 ml Balance -600 ml 50 ml -520 ml 420 ml Intake Oral 200 ml 30 ml 420 ml IV Total 50 ml 50 ml Output Urine Total 800 ml 600 ml # Voids 5 # Bowel Movements 3 0 Result Diagram: 11/11/17 0510 11/11/17 0510 Objective Remarks GENERAL: This is a middle aged, obese male who is responsive on BiPAP, moving all extremities and having 2+ leg edema with induration of the skin of the lower extremities. HEENT: Head is normocephalic. Pupils are reactive. Sclerae were clear. Ears no inflammation. Nasal mucosa injected. NECK: Supple, no bruits or thyroid enlargement or lymphadenopathy. CHEST: Decreased breath sounds at the bases with wheezes over both lung gomez, prolonged expirations with occasional basilar crackles. HEART: Sounds are irregular S1 and S2. No murmur. No S3. ABDOMEN: Soft, protuberant and liver edge 2 fingerbreadths below the costal margin. Bowel sounds are active. EXTREMITIES: Decreased pulses. Lymphedema with pigmentation of the skin of the lower extremities. NEUROLOGIC: He is Obtunded Skin is cool. Assessment and Plan Assessment and Plan IMPRESSION: 1. Hypercapnic respiratory failure. 2. Pulmonary edema and right pleural effusion. 3. Acute renal failure. 4. Diabetes mellitus. 5. Anemia. 6. History of human immunodeficiency virus disease. 7. Urinary tract infection and sepsis. 8. Probable pneumonia. Plan : 1. Continue nebs qid , duoneb 2. BIPAP18/6, FIo2 28 % 3. Continue antibiotics per ID 4. CXR,CBC,BMP, ABG in am 5. Cont Diuretic daily 6. Solumedrol 40 mg IV Q8H 7. May need intubation. Zahida Brannon MD November 11, 2017 14:25
--- NOTE | 2017-11-11 15:26 | HHI.IDPN ---
Subjective Subjective Remarks Pt is not doing well now in ICU on BIPAP 18/5, FiO2 35 % remains hypercapnic with CO2 in 70ies Lethargic to obtunded afebrile Antibiotics avicaz azithro atovaquone Lines Line sites ok Past Medical History reviewed Allergies: Coded Allergies: benazepril (Unverified Allergy, Severe, SWELLING MOUTH ,TONGUE, 03/20/17) captopril (Unverified Allergy, Severe, SWELLING MOUTH ,TONGUE, 03/20/17) enalaprilat (Unverified Allergy, Severe, SWELLING MOUTH ,TONGUE, 03/20/17) fosinopril (Unverified Allergy, Severe, SWELLING MOUTH ,TONGUE, 03/20/17) lisinopril (Unverified Allergy, Severe, SWELLING MOUTH ,TONGUE, 03/20/17) quinapril (Unverified Allergy, Severe, SWELLING MOUTH ,TONGUE, 03/20/17) Objective . Vital Signs Date Time Temp Pulse Resp B/P (MAP) Pulse Ox O2 Delivery O2 Flow Rate FiO2 11/11/17 15:00 81 11/11/17 14:00 78 11/11/17 12:00 97.8 90 24 143/110 (121) 11/11/17 12:00 90 11/11/17 12:00 97.8 11/11/17 11:47 100 35 11/11/17 11:00 100 Bi-Pap 25 11/11/17 11:00 74 11/11/17 10:00 72 11/11/17 09:45 100 45 11/11/17 09:00 83 11/11/17 08:23 100 Nasal Cannula 2.00 11/11/17 08:00 94 11/11/17 08:00 97.7 94 21 152/99 (116) 100 11/11/17 07:00 90 11/11/17 07:00 100 Nasal Cannula 4.00 11/11/17 06:00 92 11/11/17 05:30 90 22 100 11/11/17 05:15 89 24 100 11/11/17 05:00 86 19 162/101 (121) 100 11/11/17 04:45 87 27 11/11/17 04:30 85 20 11/11/17 04:15 85 20 11/11/17 04:01 90 25 160/96 (117) 96 11/11/17 04:00 100 Bi-Pap 25 11/11/17 04:00 91 11/11/17 04:00 91 24 99 11/11/17 04:00 97.9 11/11/17 03:45 75 17 100 11/11/17 03:30 76 18 100 11/11/17 03:15 81 17 100 11/11/17 03:00 83 15 120/82 (95) 100 11/11/17 02:45 85 20 100 11/11/17 02:30 89 23 100 11/11/17 02:15 87 20 100 11/11/17 02:00 92 23 127/86 (100) 100 11/11/17 02:00 92 11/11/17 01:45 90 24 100 11/11/17 01:30 93 23 100 11/11/17 01:15 91 27 100 11/11/17 01:00 90 23 140/103 (115) 100 11/11/17 00:45 89 23 100 11/11/17 00:30 88 23 100 11/11/17 00:15 91 28 100 11/11/17 00:00 100 Bi-Pap 25 11/11/17 00:00 98.0 11/11/17 00:00 90 26 133/101 (112) 100 11/11/17 00:00 90 11/10/17 23:45 91 26 100 11/10/17 23:30 93 30 100 11/10/17 23:15 93 33 100 11/10/17 23:00 85 31 147/100 (116) 11/10/17 22:45 86 31 11/10/17 22:30 82 22 11/10/17 22:15 81 25 11/10/17 22:10 83 28 147/102 (117) 11/10/17 22:01 86 27 140/105 (117) 98 11/10/17 22:00 89 11/10/17 22:00 89 27 99 11/10/17 21:45 79 21 97 11/10/17 21:30 80 24 99 11/10/17 21:15 82 23 96 11/10/17 21:00 85 25 156/103 (120) 97 11/10/17 20:45 79 15 99 11/10/17 20:30 76 12 98 11/10/17 20:15 75 13 98 11/10/17 20:01 99 25 11/10/17 20:00 84 23 158/105 (122) 100 11/10/17 20:00 97.6 11/10/17 20:00 84 11/10/17 20:00 100 Bi-Pap 25 11/10/17 19:46 88 27 158/106 (123) 11/10/17 19:45 89 26 11/10/17 19:30 85 25 62 11/10/17 19:25 87 24 154/109 (124) 48 11/10/17 19:15 84 25 11/10/17 19:00 90 11/10/17 18:00 73 11/10/17 17:51 100 25 11/10/17 17:00 89 11/10/17 16:00 97.2 75 17 141/88 (105) 100 11/10/17 16:00 85 . Laboratory Tests Test 11/10/17 07:30 11/11/17 05:10 White Blood Count 4.8 TH/MM3 4.9 TH/MM3 Red Blood Count 3.37 MIL/MM3 3.75 MIL/MM3 Hemoglobin 8.7 GM/DL 9.5 GM/DL Hematocrit 28.7 % 31.5 % Mean Corpuscular Volume 85.2 FL 84.0 FL Mean Corpuscular Hemoglobin 25.9 PG 25.4 PG Mean Corpuscular Hemoglobin Concent 30.4 % 30.3 % Red Cell Distribution Width 19.9 % 20.8 % Platelet Count 183 TH/MM3 129 TH/MM3 Mean Platelet Volume 7.2 FL 7.6 FL Neutrophils (%) (Auto) 89.5 % Lymphocytes (%) (Auto) 3.1 % Monocytes (%) (Auto) 6.6 % Eosinophils (%) (Auto) 0.2 % Basophils (%) (Auto) 0.6 % Neutrophils # (Auto) 4.4 TH/MM3 Lymphocytes # (Auto) 0.2 TH/MM3 Monocytes # (Auto) 0.3 TH/MM3 Eosinophils # (Auto) 0.0 TH/MM3 Basophils # (Auto) 0.0 TH/MM3 CBC Comment DIFF FINAL Differential Comment Hematology Comments Laboratory Tests Test 11/10/17 07:30 11/11/17 05:10 Blood Urea Nitrogen 84 MG/DL 81 MG/DL Creatinine 3.02 MG/DL 2.86 MG/DL Random Glucose 242 MG/DL 230 MG/DL Calcium Level 8.1 MG/DL 7.8 MG/DL Magnesium Level 2.3 MG/DL 2.2 MG/DL Sodium Level 141 MEQ/L 141 MEQ/L Potassium Level 5.1 MEQ/L 5.6 MEQ/L Chloride Level 104 MEQ/L 105 MEQ/L Carbon Dioxide Level 30.2 MEQ/L 27.9 MEQ/L Anion Gap 7 MEQ/L 8 MEQ/L Estimat Glomerular Filtration Rate 26 ML/MIN 28 ML/MIN Imaging Last Impressions Chest X-Ray 11/10/17 0000 Signed Impressions: CONCLUSION: 1. Mild improving bibasilar infiltrates. 2. Stable prominent cardiomegaly. 3. Pulmonary venous congestion. Renal Ultrasound 10/26/17 0000 Signed Impressions: Service Date/Time: Thursday, October 26, 2017 20:06 - CONCLUSION: 1. There is some increased echogenicity of the renal parenchyma suggestive of chronic medical renal disease. 2. No evidence of hydronephrosis. 3. Small 1.1 cm cyst upper pole left kidney. Giuseppe Street MD Physical Exam CONSTITUTIONAL/GENERAL: This is an obese middle aged male patient, in no apparent distress. quite lethargic TUBES/LINES/DRAINS: SKIN: No jaundice, rashes, or lesions. CARDIOVASCULAR: Regular rate and rhythm without murmurs, gallops, or rubs. No JVD. Peripheral pulses symmetric. + 2-3/6 harsh systolic murmur RESPIRATORY/CHEST: Symmetric, unlabored respirations. Clear to auscultation. Breath sounds markedly diominished bilaterally. GASTROINTESTINAL: Abdomen soft, non-tender, nondistended. No hepato-splenomegaly , or palpable masses. No guarding. Bowel sounds present. GENITOURINARY: Without palpable bladder distension. Wang catheter in place with cloudy urine MUSCULOSKELETAL: Extremities without clubbing, cyanosis, Non pitting chronic appearing 3+ edema of RLE and 1+ LLE edema. No cellulitic changes No joint tenderness or effusion noted. No calf tenderness. No mottling or clubbing. 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 bactrim contriutng: better with withholding TS Rec's: BNP CT chest when feasible cont PCP and MAC profilaxis - will avoid bactrim - will start Atovaquine cont Avycaz (ASP criteria: CRE Kleb pneumo) x 14 days (started on 10/31) - dose needs to be adjusted per changing GFR Follow cultures follow clinically If intubated will send all resp clx CT chest when feasible Gabby Drew MD November 11, 2017 15:26
--- NOTE | 2017-11-11 17:36 | HHI.CCPN ---
Subjective Remarks/Hospital Course 10/26: This is a 56-year-old male who presents to the emergency department for altered mental status and not feeling well. The patient is quite altered and cannot provide any reliable history, and is only mumbling incoherently. He is protecting his airway and on room air, but cannot provide any additional information. Per the emergency department reports and [facility] reports, he has a history of hepatitis B, hepatitis C, COPD, chronic kidney disease of unknown stage, hypertension, CHF. In the emergency department he was found to have a creatinine of 5.08, BUN 65, potassium 7.3, sodium 135. He is afebrile with a normal white count. He is anemic with a hemoglobin of 9.2. Past visits would suggest his baseline creatinine to be between 2.3 and 3.09. He does have a urinalysis which is significant for pyuria with proteinuria and a large amount of bacteria suggestive of a urinary tract infection. On-call lockstitch machine operator was contacted due to the hyperkalemia and recommended medical management including insulin, D50, Kayexalate, bicarbonate and serial electrolyte's and recommended against emergent dialysis at this time. No additional information is available from the patient. The patient has been in the ICU for acute renal failure with life-threatening electrolyte abnormalities. Review systems is unobtainable due to his clinical condition. The remainder of the history is obtained from review of the medical record. 10/27: Patient seen earlier this a.m., remains lethargic but arousable with periods of agitation. Hemodialysis catheter was placed emergently at bedside and nephrology was consulted for dialysis. Patient is arousable, mumbles words , knows his name but he is not able to provide any history. Urine output is minimal. No bowel movement yet post Kayexalate. ROS: -Unobtainable due to patient's mental status. 10/28 Patient s/p emergent HD yesterday for hyperkalemia K 5.2 this morning from 7.3 on arrival. On BIPAP 18/5 with 30 %FIO2. On Precedex drip for agitation. 10/29 No events overnight. Off Precedex drip. Remains on BIPAP . Afebrile. Awake and alert. s/p HD yesterday with removal 3L. 10/30 Patient had 6 runs nonsustained Vtach ( asymptomatic) For HD today. 10/31 No events overnight, patient is lying in bed in NAD. Afebrile. 11/04: Critical care he consulted by Dr. Sauceda for worsening respiratory status. ABG done on the floor revealed PCO2 in the 70s with respiratory distress. Patient was transferred to the ICU and placed on BiPAP with full facemask. I evaluated the patient shortly following his arrival to the ICU. At that time he was drowsy, easily arousable, on BiPAP with full facemask. He was also noted to be hyperkalemic with a potassium of 5.7 for which I initiated treatment with glucose/insulin/bicarb/Kayexalate. I spoke with Dr. Ga who was there to evaluate patient as well. Awaiting ABG on BiPAP. Subjective: 11/05 Bipap titrated up to 20/5 due to hypercapnia on morning ABG with pH 7.23/ PaCO2 of 74/PaO2 of 92 on 15/5 and 30%. He is alert and interactive currently. He request something for anxiety because he states he is quite claustrophobic with BiPAP mask in place. Specifically he request morphine and Ativan. He is orthopneic and cannot comply with CT scan ordered per infectious disease. 11/06: On BiPAP. Very hungry and wants his diet changed. 11/07: Critical care reconsulted for lethargy and borderline respiratory status with possible need for intubation. When I evaluated patient he was drowsy to arousable on BiPAP with full facemask. He had received dose of Ativan and morphine last night. Objective Vital Signs Date Time Temp Pulse Resp B/P (MAP) Pulse Ox O2 Delivery O2 Flow Rate FiO2 11/11/17 16:19 96 35 11/11/17 15:00 Bi-Pap 11/11/17 15:00 81 11/11/17 12:00 97.8 24 143/110 (121) 11/11/17 08:23 2.00 Intake and Output 11/11/17 11/11/17 11/12/17 08:00 16:00 00:00 Intake Total 420 ml Balance 420 ml Result Diagram: 11/11/17 0510 11/11/17 0510 Other Results Laboratory Tests Test 11/11/17 05:10 11/11/17 08:00 11/11/17 09:30 White Blood Count 4.9 TH/MM3 Red Blood Count 3.75 MIL/MM3 Hemoglobin 9.5 GM/DL Hematocrit 31.5 % Mean Corpuscular Volume 84.0 FL Mean Corpuscular Hemoglobin 25.4 PG Mean Corpuscular Hemoglobin Concent 30.3 % Red Cell Distribution Width 20.8 % Platelet Count 129 TH/MM3 Mean Platelet Volume 7.6 FL Neutrophils (%) (Auto) 89.5 % Lymphocytes (%) (Auto) 3.1 % Monocytes (%) (Auto) 6.6 % Eosinophils (%) (Auto) 0.2 % Basophils (%) (Auto) 0.6 % Neutrophils # (Auto) 4.4 TH/MM3 Lymphocytes # (Auto) 0.2 TH/MM3 Monocytes # (Auto) 0.3 TH/MM3 Eosinophils # (Auto) 0.0 TH/MM3 Basophils # (Auto) 0.0 TH/MM3 CBC Comment DIFF FINAL Differential Comment Hematology Comments Blood Urea Nitrogen 81 MG/DL Creatinine 2.86 MG/DL Random Glucose 230 MG/DL Calcium Level 7.8 MG/DL Magnesium Level 2.2 MG/DL Sodium Level 141 MEQ/L Potassium Level 5.6 MEQ/L Chloride Level 105 MEQ/L Carbon Dioxide Level 27.9 MEQ/L Anion Gap 8 MEQ/L Estimat Glomerular Filtration Rate 28 ML/MIN Prothrombin Time 13.6 SEC Prothromb Time International Ratio 1.3 RATIO Blood Gas Puncture Site RT RADIAL Blood Gas Patient Temperature 98.6 Blood Gas HCO3 33 mmol/L Blood Gas Base Excess 6.0 mmol/L Blood Gas Oxygen Saturation 84 % Arterial Blood pH 7.27 Arterial Blood Partial Pressure CO2 74 mmHg Arterial Blood Partial Pressure O2 60 mmHg Arterial Blood Oxygen Content 10.0 Vol % Arterial Blood Carboxyhemoglobin 2.3 % Arterial Blood Methemoglobin 1.6 % Blood Gas Hemoglobin 8.4 G/DL Imaging Last Impressions Chest X-Ray 11/10/17 0000 Signed Impressions: CONCLUSION: 1. Mild improving bibasilar infiltrates. 2. Stable prominent cardiomegaly. 3. Pulmonary venous congestion. Renal Ultrasound 10/26/17 0000 Signed Impressions: Service Date/Time: Thursday, October 26, 2017 20:06 - CONCLUSION: 1. There is some increased echogenicity of the renal parenchyma suggestive of chronic medical renal disease. 2. No evidence of hydronephrosis. 3. Small 1.1 cm cyst upper pole left kidney. Giuseppe Street MD Procedures 10/27/17 right femoral Vas-Cath placement Objective Remarks GENERAL: Middle-aged gentleman laying in bed, on BiPAP with full facemask HEENT: Normocephalic. Atraumatic. Pupils are equal and reactive, sclerae are anicteric. NECK: Trachea is midline. There is no JVD CHEST: On BiPAP with full facemask, diminished breath sounds bilaterally, no wheeze. CARDIOVASCULAR: Regular S1 and S2. No murmurs appreciated. ABDOMEN: Soft, nontender, nondistended. No guarding. Bowel sounds are present. No hepatomegaly or splenomegaly appreciated MUSCULOSKELETAL: Chronic nonpitting edema, 3+ down the length of the right leg. Left lower extremity is about 1+ edema. NEUROLOGICAL: Drowsy, arousable, acknowledges by nodding his head while on BiPAP with full facemask. Moving both upper extremities. A/P Assessment and Plan Plan by systems: Neurologic: Acute metabolic encephalopathy Uremic encephalopathy History of illicit substance use Monitor neuro status Avoid long-acting sedatives/narcotics UDS + Opiates on admission Respiratory: Acute hypercapnic respiratory failure COPD Continue BiPAP as needed. Nasal cannula as tolerated. Bronchodilators, continue solumederol 40mg Q8, Symbicort 160/4.[address] chest has been ordered per infectious disease but he is orthopneic and unable to obtain at this time, could proceed with scan if he requires intubation. CO2 retention noted. If respiratory status declines despite BiPAP may require endotracheal intubation. Cardiovascular: Chronic systolic heart failure Hypertension Pulmonary hypertension Coreg 6.25mg BID, add Hydralazine 25mg Q8 Monitor HR and BP keep MAP>65mmHg Echo showed EF 20%, mod-severe pulm HTN PAP 65mmHg Renal: Acute kidney injury superimposed on chronic renal insufficiency, unknown stage - likely secondary to urinary tract infection Urinary tract infection Hyperkalemia Monitor renal function, I/O's, avoid nephrotoxins Off hemodialysis after first few sessions per Dr. Ga. Renal- Dr. Ga Renal US: There is increased echogenicity of the renal parenchyma suggestive of chronic medical renal disease. No evidence of hydronephrosis. Small 1.1 cm cyst upper pole left kidney. FEN/GI: PO diet as tolerated On Pepcid 10mg IV Q12 Heme/ID: Anemia, unknown cause, likely secondary to chronic disease Urinary tract infection, HIV Low CD4 (14) Monitor CBC urine culture : ESBL Kleb Continue Abx per ID. On PCP and MAC prophylaxis per ID. timurcajavi kamaraithdelfino, atovaquone Endocrine: SSI with accuchecks Prophylaxis: GI Prophylaxis Pepcid DVT Prophylaxis -- SCDs Subcu heparin Lines: Peripheral IVs D/W Dr. Lee. D/W Dr. Vital. May require endotracheal intubation however in view of severe COPD will attempt BiPAP in order to avoid intubation currently. Vision critical Time spent on critical care excluding procedures 35 minute Jethro Matthew MD November 11, 2017 17:36
[2017-11-12] VITALS (23 sets, daily range): BP systolic 132–170; BP diastolic 82–105; PULSE 76–116; RESP 18–28; TEMP 97.6–98.6; O2SAT 92–100
[2017-11-12] MEDS: NS IV SCH ×2 (00:01→09:17)
[2017-11-12] MEDS: CEFTAZIDIME IV SCH ×2 (00:01→09:17)
[2017-11-12] MEDS: HEPARIN SODIUM - SQ 10,000 UNITS/ML VIAL SQ SCH ×3 (00:01→22:03)
[2017-11-12] MEDS: AVIBACTAM IV SCH ×2 (00:01→09:17)
[2017-11-12] MEDS: CHLORHEXIDINE GLUCONATE 2 % 1 PACK (2 CLOTHS) TOP SCH (04:00)
[2017-11-12] MEDS: CHLORHEXIDINE GLUCONATE 2 % 1 PACK (2 CLOTHS)(taper/protocol) TOPICAL SCH (04:00)
[2017-11-12] MEDS: INSULIN NovoLIN REGULAR SUPPLEMENTAL SCALE SQ SCH ×5 (04:00→20:00)
[2017-11-12] MEDS: methylPREDNISolone SOD SUCC 40 MG/1 ML VIAL IV PUSH SCH ×3 (05:19→22:03)
[2017-11-12] MEDS: hydrALAZINE HCL 25 MG TAB PO SCH ×3 (05:19→22:03)
[2017-11-12 05:46] LABS: HEMATOCRIT 31.2 % (39.0-51.0); HEMOGLOBIN 9.3 GM/DL (13.0-17.0); MEAN CELL VOLUME 85.9 FL (80.0-100.0); MEAN CORPUSCULAR HEMOGLOBIN 25.6 PG (27.0-34.0); MEAN CORPUSCULAR HGB CONC 29.8 % (32.0-36.0); MEAN PLATELET VOLUME 7.8 FL (7.0-11.0); PLATELET COUNT 143 TH/MM3 (150-450); RED BLOOD COUNT 3.63 MIL/MM3 (4.50-5.90); RED CELL DISTRIBUTION WIDTH 21.2 % (11.6-17.2)
[2017-11-12 06:17] LABS: CALCIUM 8.1 MG/DL (8.5-10.1); CREATININE 2.87 MG/DL (0.60-1.30); MAGNESIUM 2.3 MG/DL (1.5-2.5)
[2017-11-12] MEDS: RESP: ALBUTEROL 2.5 MG/IPRATROPIUM 0.5 MG NEB (SCH) NEB ×4 (07:49→19:34)
[2017-11-12] MEDS: ATOVAQUONE SUSP 750 MG/5 ML UDC PO SCH (09:11)
[2017-11-12] MEDS: FUROSEMIDE 100 MG/10 ML VIAL IV PUSH SCH (09:13)
[2017-11-12] MEDS: SODIUM CHLORIDE 0.9% FLUSH 10 ML FLUSH IV FLUSH SCH ×2 (09:13→20:04)
[2017-11-12] MEDS: FAMOTIDINE 20 MG TAB PO SCH ×2 (09:14→20:03)
[2017-11-12] MEDS: CARVEDILOL 12.5 MG TAB PO SCH ×2 (09:14→20:03)
[2017-11-12] MEDS: QUEtiapine FUMARATE 25 MG TAB PO SCH ×2 (09:14→11:28)
[2017-11-12] MEDS: amLODIPine BESYLATE 5 MG TAB PO SCH (09:14)
[2017-11-12] MEDS: AZITHROMYCIN 600 MG TAB PO SCH (09:14)
[2017-11-12] MEDS: BUDESONIDE-FORMOTEROL 160/4.5 MCG INHALER INH SCH ×2 (09:15→20:04)
[2017-11-12] MEDS ORDERED: CALCIUM GLUCONATE 10% 1 GM/10 ML VIAL IV PUSH ONE (09:45)
[2017-11-12] MEDS ORDERED: SODIUM POLYSTYRENE SULFONATE SUSP 15 GM/60 ML CUP PO SCH (09:45)
--- NOTE | 2017-11-12 10:19 | HHI.NPPN ---
Subjective General Problems: Anemia, Edema, Hypertension Renal Failure: Stage IV History of Present Illness 56-year-old male with a past medical history of hypertension, history of HIV, chronic lymphedema of the legs, diabetes mellitus, sleep apnea, ischemic heart disease, was brought to the hospital with altered mental status and not feeling well. I was called to see the patient because of elevated BUN and creatinine and high potassium. The patient has known history of chronic kidney disease and patient was seen by me when he was here in March last year. At that time, he had creatinine in the range of 2.3-3.0 and he was discharged with a creatinine of 2.5 and now he came with a creatinine of 5.0 and also potassium of 7.3. Additional Remarks Patient is awake, just getting of bipap to eat breakfast. Potassium high at 6.3 today. (Sameera Rudd) Review of Systems Respiratory Lungs: SOB (Sameera Rudd) Cardiovascular Cardiac Remarks denies any Chest pain (Sameera Rudd) Gastrointestinal GI Remarks denies any abdominal pain (Sameera Rudd) Objective Data Data Vital Signs Date Time Temp Pulse Resp B/P (MAP) Pulse Ox O2 Delivery O2 Flow Rate FiO2 11/12/17 07:50 100 BiPAP 30 11/12/17 07:48 100 30 11/12/17 06:00 83 11/12/17 05:00 82 11/12/17 04:10 100 35 11/12/17 04:00 86 11/12/17 04:00 97.6 86 20 144/94 (111) 100 11/12/17 03:00 91 11/12/17 03:00 100 Bi-Pap 35 11/12/17 02:00 84 11/12/17 01:10 100 35 11/12/17 01:00 85 11/12/17 01:00 22 11/12/17 00:00 86 11/12/17 00:00 98.0 86 132/82 (99) 100 11/11/17 23:00 87 11/11/17 23:00 100 Bi-Pap 35 11/11/17 22:00 89 11/11/17 21:00 89 11/11/17 20:20 100 35 11/11/17 20:00 101 11/11/17 20:00 98.3 101 18 137/82 (100) 100 11/11/17 19:00 101 11/11/17 19:00 100 Bi-Pap 35 11/11/17 18:00 85 11/11/17 17:00 80 11/11/17 16:19 96 35 11/11/17 16:00 98.1 84 20 151/102 (118) 100 11/11/17 16:00 84 11/11/17 15:00 99 Bi-Pap 35 11/11/17 15:00 81 11/11/17 14:00 78 11/11/17 12:00 97.8 90 24 143/110 (121) 11/11/17 12:00 90 11/11/17 12:00 97.8 11/11/17 11:47 100 35 11/11/17 11:00 100 Bi-Pap 25 11/11/17 11:00 74 (Sameera uRdd) -: 11/12/17 0514 11/12/17 0514 Imaging Last Impressions Chest X-Ray 11/10/17 0000 Signed Impressions: CONCLUSION: 1. Mild improving bibasilar infiltrates. 2. Stable prominent cardiomegaly. 3. Pulmonary venous congestion. Renal Ultrasound 10/26/17 0000 Signed Impressions: Service Date/Time: Thursday, October 26, 2017 20:06 - CONCLUSION: 1. There is some increased echogenicity of the renal parenchyma suggestive of chronic medical renal disease. 2. No evidence of hydronephrosis. 3. Small 1.1 cm cyst upper pole left kidney. Giuseppe Street MD (Sameera Rudd) Physical Exam General Appearance: No Acute Distress (Sameera Rudd) Eyes Eye Exam: Pupils Equal (Sameera Rudd) Throat Throat Exam: Oral Mucosa [place] & Moist (Sameera Rudd) Pulmonary Resp Exam: Rhonchi, Decreased Bases, Diminished Breath Sounds (Sameera Rudd) Cardiology CV Exam: Regular (Sameera Rudd) Gastrointestinal/Abdomen GI Exam: Soft, Non-Tender, Bowel Sounds Present, Distended (Sameera Rudd) Integumentary Skin Exam: Clear, Warm (Sameera Rudd) Extremeties Extremities Exam: Pitting Edema, Dependent Edema Extremeties Remarks lymphedema right leg (Sameera Rudd) Neurologic Neuro Exam: Alert, Awake, Oriented, Obtunded (Sameera Rudd) Psychiatric Psych Exam: Appropriate Responses (Sameera Rudd) Assessment/Plan Assessment Summary: Anemia of CKD, CKD Stage V Electrolyte Assessment: Hyperkalemia Problem List: (1) Stage 5 chronic kidney disease ICD Codes: N18.5 - Chronic kidney disease, stage 5 (2) DM (diabetes mellitus) ICD Codes: E11.9 - DM (diabetes mellitus) Status: Chronic (3) Chronic systolic CHF (congestive heart failure) ICD Codes: I50.22 - Chronic systolic CHF (congestive heart failure) Status: Chronic (4) Hyperkalemia ICD Codes: E87.5 - Hyperkalemia Status: Acute (5) Hypertension ICD Codes: I10 - Hypertension Status: Chronic (6) COPD exacerbation ICD Codes: J44.1 - COPD exacerbation Status: Acute (7) Respiratory distress ICD Codes: R06.00 - Respiratory distress Status: Acute (8) HIV (human immunodeficiency virus infection) ICD Codes: Z21 - HIV (human immunodeficiency virus infection) Status: Chronic (9) PNA (pneumonia) ICD Codes: J18.9 - PNA (pneumonia) Status: Acute (10) Hepatitis C ICD Codes: B19.20 - Hepatitis C Status: Chronic Plan Patient has been on dialysis last one was on 10/28 Vas-Cath was removed Patient is worsening renal failure with fluid accumulation EF of 20%, COPD Carbon dioxide retention Critically ill transferred to ICU He has COPD with recurrent resp. failure. Continue Lasix 80 mg and Diamox 500 mg for diuresis Urinary output 600ml/24 hours and weight is decreasing. Hyperkalemia at 6.3 Kayexalate, calcium gluconate, and sodium bicarbonate ordered. Recheck at 1700 Low potassium diet added reported to be eating 3 bananas per day. (Sameera Rudd) Plan Patient seen and examined, agree with above. Diet change for low K, follow BMP. (Millicent Ga MD) Sameera Rudd November 12, 2017 10:19 Millicent Ga MD November 13, 2017 21:15
[2017-11-12] MEDS ORDERED: SODIUM BICARBONATE 8.4% INJ 150 MEQ in DEXTROSE 5% IN WATE 1000ML INJ 1,000 ML IV ONE ×2 (11:38)
[2017-11-12] MEDS ORDERED: METOPROLOL TARTRATE 5 MG/5 ML VIAL ONE (15:11)
--- NOTE | 2017-11-12 15:53 | HHI.CCPN ---
Subjective Remarks/Hospital Course 10/26: This is a 56-year-old male who presents to the emergency department for altered mental status and not feeling well. The patient is quite altered and cannot provide any reliable history, and is only mumbling incoherently. He is protecting his airway and on room air, but cannot provide any additional information. Per the emergency department reports and [facility] reports, he has a history of hepatitis B, hepatitis C, COPD, chronic kidney disease of unknown stage, hypertension, CHF. In the emergency department he was found to have a creatinine of 5.08, BUN 65, potassium 7.3, sodium 135. He is afebrile with a normal white count. He is anemic with a hemoglobin of 9.2. Past visits would suggest his baseline creatinine to be between 2.3 and 3.09. He does have a urinalysis which is significant for pyuria with proteinuria and a large amount of bacteria suggestive of a urinary tract infection. On-call switchboard operator helper was contacted due to the hyperkalemia and recommended medical management including insulin, D50, Kayexalate, bicarbonate and serial electrolyte's and recommended against emergent dialysis at this time. No additional information is available from the patient. The patient has been in the ICU for acute renal failure with life-threatening electrolyte abnormalities. Review systems is unobtainable due to his clinical condition. The remainder of the history is obtained from review of the medical record. 10/27: Patient seen earlier this a.m., remains lethargic but arousable with periods of agitation. Hemodialysis catheter was placed emergently at bedside and nephrology was consulted for dialysis. Patient is arousable, mumbles words , knows his name but he is not able to provide any history. Urine output is minimal. No bowel movement yet post Kayexalate. ROS: -Unobtainable due to patient's mental status. 10/28 Patient s/p emergent HD yesterday for hyperkalemia K 5.2 this morning from 7.3 on arrival. On BIPAP 18/5 with 30 %FIO2. On Precedex drip for agitation. 10/29 No events overnight. Off Precedex drip. Remains on BIPAP . Afebrile. Awake and alert. s/p HD yesterday with removal 3L. 10/30 Patient had 6 runs nonsustained Vtach ( asymptomatic) For HD today. 10/31 No events overnight, patient is lying in bed in NAD. Afebrile. 11/04: Critical care he consulted by Dr. Sauceda for worsening respiratory status. ABG done on the floor revealed PCO2 in the 70s with respiratory distress. Patient was transferred to the ICU and placed on BiPAP with full facemask. I evaluated the patient shortly following his arrival to the ICU. At that time he was drowsy, easily arousable, on BiPAP with full facemask. He was also noted to be hyperkalemic with a potassium of 5.7 for which I initiated treatment with glucose/insulin/bicarb/Kayexalate. I spoke with Dr. Ga who was there to evaluate patient as well. Awaiting ABG on BiPAP. Subjective: 11/05 Bipap titrated up to 20/5 due to hypercapnia on morning ABG with pH 7.23/ PaCO2 of 74/PaO2 of 92 on 15/5 and 30%. He is alert and interactive currently. He request something for anxiety because he states he is quite claustrophobic with BiPAP mask in place. Specifically he request morphine and Ativan. He is orthopneic and cannot comply with CT scan ordered per infectious disease. 11/06: On BiPAP. Very hungry and wants his diet changed. 11/07: Critical care reconsulted for lethargy and borderline respiratory status with possible need for intubation. When I evaluated patient he was drowsy to arousable on BiPAP with full facemask. He had received dose of Ativan and morphine last night. 11/08: Drowsy, easily arousable. Tolerating p.o. diet. On as needed BiPAP. Objective Vital Signs Date Time Temp Pulse Resp B/P (MAP) Pulse Ox O2 Delivery O2 Flow Rate FiO2 11/12/17 10:00 103 11/12/17 08:00 98.0 18 146/101 (116) 100 11/12/17 07:50 BiPAP 30 11/11/17 08:23 2.00 Result Diagram: 11/12/17 0514 11/12/17 0514 Other Results Laboratory Tests Test 11/12/17 05:14 Blood Gas Puncture Site RT RADIAL Blood Gas Patient Temperature 98.6 Blood Gas HCO3 34 mmol/L (22-26) Blood Gas Base Excess 6.7 mmol/L (-2-2) Blood Gas Oxygen Saturation 95 % (90-100) Arterial Blood pH 7.25 (7.380-7.420) Arterial Blood Partial Pressure CO2 79 mmHg (38-42) Arterial Blood Partial Pressure O2 117 mmHg (61-120) Arterial Blood Oxygen Content 11.6 Vol % (12.0-20.0) Arterial Blood Carboxyhemoglobin 1.8 % (0-4) Arterial Blood Methemoglobin 1.4 % (0-2) Blood Gas Hemoglobin 8.5 G/DL (12.0-16.0) Oxygen Delivery Device BiPAP Blood Gas Ventilator Setting [id number]/[id number] Blood Gas Inspired Oxygen 35 % Imaging Last Impressions Chest X-Ray 11/10/17 0000 Signed Impressions: CONCLUSION: 1. Mild improving bibasilar infiltrates. 2. Stable prominent cardiomegaly. 3. Pulmonary venous congestion. Renal Ultrasound 10/26/17 0000 Signed Impressions: Service Date/Time: Thursday, October 26, 2017 20:06 - CONCLUSION: 1. There is some increased echogenicity of the renal parenchyma suggestive of chronic medical renal disease. 2. No evidence of hydronephrosis. 3. Small 1.1 cm cyst upper pole left kidney. Giuseppe Street MD Procedures 10/27/17 right femoral Vas-Cath placement Objective Remarks GENERAL: Middle-aged gentleman laying in bed, on nasal cannula HEENT: Normocephalic. Atraumatic. Pupils are equal and reactive, sclerae are anicteric. NECK: Trachea is midline. There is no JVD CHEST: On nasal cannula, diminished breath sounds bilaterally, no wheeze. CARDIOVASCULAR: Regular S1 and S2. No murmurs appreciated. ABDOMEN: Soft, nontender, nondistended. No guarding. Bowel sounds are present. No hepatomegaly or splenomegaly appreciated MUSCULOSKELETAL: Chronic nonpitting edema, 3+ down the length of the right leg. Left lower extremity is about 1+ edema. NEUROLOGICAL: Drowsy, easily arousable, following commands. Moving both upper extremities. A/P Assessment and Plan Plan by systems: Neurologic: Acute metabolic encephalopathy Uremic encephalopathy History of illicit substance use Monitor neuro status Avoid long-acting sedatives/narcotics UDS + Opiates on admission Respiratory: Acute hypercapnic respiratory failure COPD Continue BiPAP as needed. Nasal cannula as tolerated. Bronchodilators, continue solumederol 40mg Q8, Symbicort 160/4.[address] chest has been ordered per infectious disease but he is orthopneic and unable to obtain at this time, could proceed with scan if he requires intubation. CO2 retention noted. If respiratory status declines despite BiPAP may require endotracheal intubation. Cardiovascular: Chronic systolic heart failure Hypertension Pulmonary hypertension Coreg 6.25mg BID, add Hydralazine 25mg Q8 Monitor HR and BP keep MAP>65mmHg Echo showed EF 20%, mod-severe pulm HTN PAP 65mmHg Renal: Acute kidney injury superimposed on chronic renal insufficiency, unknown stage - likely secondary to urinary tract infection Urinary tract infection Hyperkalemia Monitor renal function, I/O's, avoid nephrotoxins Off hemodialysis after first few sessions per Dr. Ga. Renal- Dr. Ga Renal US: There is increased echogenicity of the renal parenchyma suggestive of chronic medical renal disease. No evidence of hydronephrosis. Small 1.1 cm cyst upper pole left kidney. Kayexalate for hyperkalemia. Received glucose, insulin, calcium. On bicarb drip per renal. FEN/GI: PO diet as tolerated On Pepcid 10mg IV Q12 Heme/ID: Anemia, unknown cause, likely secondary to chronic disease Urinary tract infection, HIV Low CD4 (14) Monitor CBC urine culture : ESBL Kleb Continue Abx per ID. On PCP and MAC prophylaxis per ID. avicaz, azithro, atovaquone Endocrine: SSI with accuchecks Prophylaxis: GI Prophylaxis Pepcid DVT Prophylaxis -- SCDs Subcu heparin Lines: Peripheral IVs Jethro Matthew MD November 12, 2017 15:53
[2017-11-12] MEDS: SODIUM POLYSTYRENE SULFONATE SUSP 15 GM/60 ML CUP PO SCH ×4 (16:00→22:00)
--- NOTE | 2017-11-12 19:26 | HHI.PR ---
Subjective Remarks He is better today and off BiPAP and on N/C 3 L. Was on BIPAP last nite.. ABG'S are Better. Objective Vital Signs Date Time Temp Pulse Resp B/P (MAP) Pulse Ox O2 Delivery O2 Flow Rate FiO2 11/12/17 18:36 94 30 11/12/17 18:00 103 11/12/17 16:00 98.6 116 28 170/105 (126) 92 11/12/17 16:00 116 11/12/17 15:00 96 Nasal Cannula 11/12/17 14:00 93 11/12/17 12:29 18 11/12/17 12:00 91 11/12/17 12:00 98.3 91 24 135/89 (104) 96 11/12/17 11:00 94 Nasal Cannula 11/12/17 10:00 103 11/12/17 10:00 103 11/12/17 08:00 82 11/12/17 08:00 98.0 82 18 146/101 (116) 100 11/12/17 07:50 100 BiPAP 30 11/12/17 07:48 100 30 11/12/17 07:00 100 Bi-Pap 35 11/12/17 07:00 76 11/12/17 06:00 83 11/12/17 05:00 82 11/12/17 04:10 100 35 11/12/17 04:00 86 11/12/17 04:00 97.6 86 20 144/94 (111) 100 11/12/17 03:00 91 11/12/17 03:00 100 Bi-Pap 35 11/12/17 02:00 84 11/12/17 01:10 100 35 11/12/17 01:00 85 11/12/17 00:00 86 11/12/17 00:00 98.0 86 132/82 (99) 100 11/11/17 23:00 87 11/11/17 23:00 100 Bi-Pap 35 11/11/17 22:00 89 11/11/17 21:00 89 11/11/17 20:20 100 35 11/11/17 20:00 101 11/11/17 20:00 98.3 101 18 137/82 (100) 100 I/O 11/11/17 11/11/17 11/11/17 11/12/17 11/12/1729/18 07:00 15:00 23:00 07:00 15:00 23:00 Intake Total 420 ml 0 ml 50 ml 2050 ml Output Total 2000 ml Balance 420 ml 0 ml 50 ml 50 ml Intake Oral 420 ml 0 ml 900 ml IV Total 50 ml 1150 ml Output Urine Total 2000 ml # Voids 5 5 5 # Bowel Movements 0 2 2 Result Diagram: 11/12/17 0514 11/12/17513 Objective Remarks GENERAL: This is a middle aged, obese male who is moving all extremities and having 2+ leg edema with induration of the skin of the lower extremities. HEENT: Head is normocephalic. Pupils are reactive. Sclerae were clear. Ears no inflammation. Nasal mucosa injected. NECK: Supple, no bruits or thyroid enlargement or lymphadenopathy. CHEST: Decreased breath sounds at the bases with wheezes over both lung gomez, prolonged expirations. HEART: Sounds are irregular S1 and S2. No murmur. No S3. ABDOMEN: Soft, protuberant and liver edge 2 fingerbreadths below the costal margin. Bowel sounds are active. EXTREMITIES: Decreased pulses. Lymphedema with pigmentation of the skin of the lower extremities. NEUROLOGIC: He is awake and talking .Reflexes 1 + Skin is cool. Assessment and Plan Assessment and Plan IMPRESSION: 1. Hypercapnic respiratory failure. 2. Pulmonary edema and right pleural effusion. 3. Acute renal failure. 4. Diabetes mellitus. 5. Anemia. 6. History of human immunodeficiency virus disease. 7. Urinary tract infection and sepsis. 8. Probable pneumonia. Plan : 1. Continue nebs qid , duoneb 2. BIPAP 15/6, FIo2 28 % at HS 3. Continue antibiotics per ID 4. CBC,BMP, ABG in am 5. Cont Diuretic daily 6. Solumedrol 40 mg IV Q8H 7. O2 N/C 3 L daytime Zahida Brannon MD November 12, 2017 19:26
[2017-11-13] VITALS (21 sets, daily range): BP systolic 138–171; BP diastolic 77–108; PULSE 82–96; RESP 19–25; TEMP 98–98.7; O2SAT 8–100
[2017-11-13] MEDS: CEFTAZIDIME IV SCH ×2 (01:12→08:30)
[2017-11-13] MEDS: NS IV SCH ×2 (01:12→08:30)
[2017-11-13] MEDS: AVIBACTAM IV SCH ×2 (01:12→08:30)
[2017-11-13] MEDS: INSULIN NovoLIN REGULAR SUPPLEMENTAL SCALE SQ SCH ×6 (04:00→21:29)
[2017-11-13] MEDS: CHLORHEXIDINE GLUCONATE 2 % 1 PACK (2 CLOTHS)(taper/protocol) TOPICAL SCH (04:00)
[2017-11-13] MEDS: CHLORHEXIDINE GLUCONATE 2 % 1 PACK (2 CLOTHS) TOP SCH (04:00)
[2017-11-13] MEDS: methylPREDNISolone SOD SUCC 40 MG/1 ML VIAL IV PUSH SCH ×2 (05:18→21:31)
[2017-11-13] MEDS: hydrALAZINE HCL 25 MG TAB PO SCH ×3 (05:18→21:33)
[2017-11-13] MEDS: RESP: ALBUTEROL 2.5 MG/IPRATROPIUM 0.5 MG NEB (SCH) NEB ×3 (08:16→15:40)
[2017-11-13] MEDS: amLODIPine BESYLATE 5 MG TAB PO SCH (08:30)
[2017-11-13] MEDS: FAMOTIDINE 20 MG TAB PO SCH ×2 (08:30→21:33)
[2017-11-13] MEDS: CARVEDILOL 12.5 MG TAB PO SCH ×2 (08:30→21:33)
[2017-11-13] MEDS: ATOVAQUONE SUSP 750 MG/5 ML UDC PO SCH (08:30)
[2017-11-13] MEDS: SODIUM CHLORIDE 0.9% FLUSH 10 ML FLUSH IV FLUSH SCH ×2 (08:31→21:33)
[2017-11-13] MEDS: BUDESONIDE-FORMOTEROL 160/4.5 MCG INHALER INH SCH ×2 (08:31→21:28)
[2017-11-13] MEDS: FUROSEMIDE 100 MG/10 ML VIAL IV PUSH SCH (08:31)
[2017-11-13] MEDS: QUEtiapine FUMARATE 25 MG TAB PO SCH ×2 (08:38→12:54)
--- NOTE | 2017-11-13 10:11 | HHI.CCPN ---
Subjective Remarks/Hospital Course 10/26: This is a 56-year-old male who presents to the emergency department for altered mental status and not feeling well. The patient is quite altered and cannot provide any reliable history, and is only mumbling incoherently. He is protecting his airway and on room air, but cannot provide any additional information. Per the emergency department reports and [facility] reports, he has a history of hepatitis B, hepatitis C, COPD, chronic kidney disease of unknown stage, hypertension, CHF. In the emergency department he was found to have a creatinine of 5.08, BUN 65, potassium 7.3, sodium 135. He is afebrile with a normal white count. He is anemic with a hemoglobin of 9.2. Past visits would suggest his baseline creatinine to be between 2.3 and 3.09. He does have a urinalysis which is significant for pyuria with proteinuria and a large amount of bacteria suggestive of a urinary tract infection. On-call primary clinician was contacted due to the hyperkalemia and recommended medical management including insulin, D50, Kayexalate, bicarbonate and serial electrolyte's and recommended against emergent dialysis at this time. No additional information is available from the patient. The patient has been in the ICU for acute renal failure with life-threatening electrolyte abnormalities. Review systems is unobtainable due to his clinical condition. The remainder of the history is obtained from review of the medical record. 10/27: Patient seen earlier this a.m., remains lethargic but arousable with periods of agitation. Hemodialysis catheter was placed emergently at bedside and nephrology was consulted for dialysis. Patient is arousable, mumbles words , knows his name but he is not able to provide any history. Urine output is minimal. No bowel movement yet post Kayexalate. ROS: -Unobtainable due to patient's mental status. 10/28 Patient s/p emergent HD yesterday for hyperkalemia K 5.2 this morning from 7.3 on arrival. On BIPAP 18/5 with 30 %FIO2. On Precedex drip for agitation. 10/29 No events overnight. Off Precedex drip. Remains on BIPAP . Afebrile. Awake and alert. s/p HD yesterday with removal 3L. 10/30 Patient had 6 runs nonsustained Vtach ( asymptomatic) For HD today. 10/31 No events overnight, patient is lying in bed in NAD. Afebrile. 11/04: Critical care he consulted by Dr. Sauceda for worsening respiratory status. ABG done on the floor revealed PCO2 in the 70s with respiratory distress. Patient was transferred to the ICU and placed on BiPAP with full facemask. I evaluated the patient shortly following his arrival to the ICU. At that time he was drowsy, easily arousable, on BiPAP with full facemask. He was also noted to be hyperkalemic with a potassium of 5.7 for which I initiated treatment with glucose/insulin/bicarb/Kayexalate. I spoke with Dr. Ga who was there to evaluate patient as well. Awaiting ABG on BiPAP. Subjective: 11/05 Bipap titrated up to 20/5 due to hypercapnia on morning ABG with pH 7.23/ PaCO2 of 74/PaO2 of 92 on 15 and 30%. He is alert and interactive currently. He request something for anxiety because he states he is quite claustrophobic with BiPAP mask in place. Specifically he request morphine and Ativan. He is orthopneic and cannot comply with CT scan ordered per infectious disease. 11/06: On BiPAP. Very hungry and wants his diet changed. 11/11: Critical care reconsulted for lethargy and borderline respiratory status with possible need for intubation. When I evaluated patient he was drowsy to arousable on BiPAP with full facemask. He had received dose of Ativan and morphine last night. 11/12: Drowsy, easily arousable. Tolerating p.o. diet. On as needed BiPAP. 11/13: Awake and alert. On BiPAP overnight. Tolerating nasal cannula during daytime. Tolerating p.o. diet. Potassium improved with Kayexalate yesterday. Objective Vital Signs Date Time Temp Pulse Resp B/P (MAP) Pulse Ox O2 Delivery O2 Flow Rate FiO2 11/13/17 08:17 100 25 11/13/17 08:00 89 11/13/17 07:00 Bi-Pap 11/13/17 04:00 98.2 20 160/106 (124) 11/12/17 20:10 3.00 Intake and Output 11/13/17 11/13/17 11/14/17 08:00 16:00 00:00 Intake Total 530 ml Output Total 850 ml Balance -320 ml Result Diagram: 11/12/17 0514 11/12/17 1944 Imaging Last Impressions Chest X-Ray 11/10/17 0000 Signed Impressions: CONCLUSION: 1. Mild improving bibasilar infiltrates. 2. Stable prominent cardiomegaly. 3. Pulmonary venous congestion. Renal Ultrasound 10/26/17 0000 Signed Impressions: Service Date/Time: Thursday, October 26, 2017 20:06 - CONCLUSION: 1. There is some increased echogenicity of the renal parenchyma suggestive of chronic medical renal disease. 2. No evidence of hydronephrosis. 3. Small 1.1 cm cyst upper pole left kidney. Giuseppe Street MD Procedures 10/27/17 right femoral Vas-Cath placement Objective Remarks GENERAL: Middle-aged gentleman laying in bed, on nasal cannula HEENT: Normocephalic. Atraumatic. Pupils are equal and reactive, sclerae are anicteric. NECK: Trachea is midline. There is no JVD CHEST: On nasal cannula, diminished breath sounds bilaterally, no wheeze. CARDIOVASCULAR: Regular S1 and S2. No murmurs appreciated. ABDOMEN: Soft, nontender, nondistended. No guarding. Bowel sounds are present. No hepatomegaly or splenomegaly appreciated MUSCULOSKELETAL: Chronic nonpitting edema, 3+ down the length of the right leg. Left lower extremity is about 1+ edema. NEUROLOGICAL: Awake, alert, following commands. Moving both upper extremities. A/P Assessment and Plan Plan by systems: Neurologic: Acute metabolic encephalopathy Uremic encephalopathy History of illicit substance use Monitor neuro status Avoid long-acting sedatives/narcotics UDS + Opiates on admission Respiratory: Acute hypercapnic respiratory failure COPD Continue BiPAP as needed. Nasal cannula as tolerated. Bronchodilators, continue solumederol 40mg Q8, Symbicort 160/4.[address] chest has been ordered per infectious disease but he is orthopneic and unable to obtain at this time, could proceed with scan if he requires intubation. CO2 retention noted. If respiratory status declines despite BiPAP may require endotracheal intubation. Cardiovascular: Chronic systolic heart failure Hypertension Pulmonary hypertension Coreg 6.25mg BID, add Hydralazine 25mg Q8 Monitor HR and BP keep MAP>65mmHg Echo showed EF 20%, mod-severe pulm HTN PAP 65mmHg Renal: Acute kidney injury superimposed on chronic renal insufficiency, unknown stage - likely secondary to urinary tract infection Urinary tract infection Hyperkalemia Monitor renal function, I/O's, avoid nephrotoxins Off hemodialysis after first few sessions per Dr. Ga. Renal- Dr. Ga Renal US: There is increased echogenicity of the renal parenchyma suggestive of chronic medical renal disease. No evidence of hydronephrosis. Small 1.1 cm cyst upper pole left kidney. Kayexalate for hyperkalemia. Received glucose, insulin, calcium. On bicarb drip per renal. FEN/GI: PO diet as tolerated On Pepcid 10mg IV Q12 Heme/ID: Anemia, unknown cause, likely secondary to chronic disease Urinary tract infection, HIV Low CD4 (14) Monitor CBC urine culture : ESBL Kleb Continue Abx per ID. On PCP and MAC prophylaxis per ID. avicaz, azithro, atovaquone Endocrine: SSI with accuchecks Prophylaxis: GI Prophylaxis Pepcid DVT Prophylaxis -- SCDs Subcu heparin Lines: Peripheral IVs Jethro Matthew MD November 13, 2017 10:11
--- NOTE | 2017-11-13 10:20 | HHI.NPPN ---
Subjective General Problems: Anemia, Edema, Hypertension Renal Failure: Stage IV History of Present Illness 56-year-old male with a past medical history of hypertension, history of HIV, chronic lymphedema of the legs, diabetes mellitus, sleep apnea, ischemic heart disease, was brought to the hospital with altered mental status and not feeling well. I was called to see the patient because of elevated BUN and creatinine and high potassium. The patient has known history of chronic kidney disease and patient was seen by me when he was here in March last year. At that time, he had creatinine in the range of 2.3-3.0 and he was discharged with a creatinine of 2.5 and now he came with a creatinine of 5.0 and also potassium of 7.3. Additional Remarks Patient is awake, used Bipap all night. (Sameera Rudd) Review of Systems Respiratory Lungs: SOB (Sameera Rudd) Cardiovascular Cardiac Remarks denies any Chest pain (Sameera Rudd) Gastrointestinal GI Remarks denies any abdominal pain (Sameera Rudd) Objective Data Data Vital Signs Date Time Temp Pulse Resp B/P (MAP) Pulse Ox O2 Delivery O2 Flow Rate FiO2 11/13/17 08:17 100 25 11/13/17 08:00 89 11/13/17 08:00 98.5 85 24 154/104 (121) 100 11/13/17 07:00 100 Bi-Pap 35 11/13/17 06:00 90 11/13/17 04:21 100 30 11/13/17 04:00 82 11/13/17 04:00 98.2 82 20 160/106 (124) 100 11/13/17 03:00 100 Bi-Pap 35 11/13/17 02:00 90 11/13/17 00:47 100 30 11/13/17 00:00 98.7 84 19 171/108 (129) 100 11/13/17 00:00 84 11/12/17 23:00 100 Bi-Pap 35 11/12/17 22:00 91 11/12/17 20:10 93 Nasal Cannula 3.00 11/12/17 20:00 98.4 87 22 146/94 (111) 100 11/12/17 20:00 87 11/12/17 19:32 100 30 11/12/17 19:00 94 Bi-Pap 35 11/12/17 18:36 94 30 11/12/17 18:00 103 11/12/17 16:00 98.6 116 28 170/105 (126) 92 11/12/17 16:00 116 11/12/17 15:00 96 Nasal Cannula 11/12/17 14:00 93 11/12/17 12:29 18 11/12/17 12:00 91 11/12/17 12:00 98.3 91 24 135/89 (104) 96 11/12/17 11:00 94 Nasal Cannula (Sameera Rudd) -: 11/12/17 0514 11/12/17 1944 Imaging Last Impressions Chest X-Ray 11/10/17 0000 Signed Impressions: CONCLUSION: 1. Mild improving bibasilar infiltrates. 2. Stable prominent cardiomegaly. 3. Pulmonary venous congestion. Renal Ultrasound 10/26/17 0000 Signed Impressions: Service Date/Time: Thursday, October 26, 2017 20:06 - CONCLUSION: 1. There is some increased echogenicity of the renal parenchyma suggestive of chronic medical renal disease. 2. No evidence of hydronephrosis. 3. Small 1.1 cm cyst upper pole left kidney. Giuseppe Street MD (Sameera Rudd) Physical Exam General Appearance: No Acute Distress (Sameera Rudd) Eyes Eye Exam: Pupils Equal (Sameera Rudd) Throat Throat Exam: Oral Mucosa [place] & Moist (Sameera Rudd) Pulmonary Resp Exam: Rhonchi, Decreased Bases, Diminished Breath Sounds (Sameera Rudd) Cardiology CV Exam: Regular (Sameera Rudd) Gastrointestinal/Abdomen GI Exam: Soft, Non-Tender, Bowel Sounds Present, Distended (Sameera Rudd) Integumentary Skin Exam: Clear, Warm (Sameera Rudd) Extremeties Extremities Exam: Pitting Edema, Dependent Edema Extremeties Remarks lymphedema right leg (Sameera Rudd) Neurologic Neuro Exam: Alert, Awake, Oriented, Obtunded (Sameera Rudd) Psychiatric Psych Exam: Appropriate Responses (Sameera Rudd) Assessment/Plan Assessment Summary: Anemia of CKD, CKD Stage V Electrolyte Assessment: Hyperkalemia Problem List: (1) Stage 5 chronic kidney disease ICD Codes: N18.5 - Chronic kidney disease, stage 5 (2) DM (diabetes mellitus) ICD Codes: E11.9 - DM (diabetes mellitus) Status: Chronic (3) Chronic systolic CHF (congestive heart failure) ICD Codes: I50.22 - Chronic systolic CHF (congestive heart failure) Status: Chronic (4) Hyperkalemia ICD Codes: E87.5 - Hyperkalemia Status: Acute (5) Hypertension ICD Codes: I10 - Hypertension Status: Chronic (6) COPD exacerbation ICD Codes: J44.1 - COPD exacerbation Status: Acute (7) Respiratory distress ICD Codes: R06.00 - Respiratory distress Status: Acute (8) HIV (human immunodeficiency virus infection) ICD Codes: Z21 - HIV (human immunodeficiency virus infection) Status: Chronic (9) PNA (pneumonia) ICD Codes: J18.9 - PNA (pneumonia) Status: Acute (10) Hepatitis C ICD Codes: B19.20 - Hepatitis C Status: Chronic Plan Patient has been on dialysis last one was on 10/28 Vas-Cath was removed Patient is worsening renal failure with fluid accumulation EF of 20%, COPD Carbon dioxide retention Critically ill transferred to ICU He has COPD with recurrent resp. failure. Continue Lasix 80 mg Urinary output 2.8L/24 hours and weight is decreasing. Hyperkalemia improved with recheck at 4.9 Low potassium diet BMP pending Labs in am (Sameera Rudd) Plan Patient seen and examined, agree with above. K is now normalized. (Millicent Ga MD) Sameera Rudd November 13, 2017 10:20 Millicent Ga MD November 13, 2017 21:22
[2017-11-13] MEDS: HEPARIN SODIUM - SQ 10,000 UNITS/ML VIAL SQ SCH ×2 (10:30→21:32)
--- NOTE | 2017-11-13 12:43 | HHI.PR ---
Subjective Remarks He is back on BiPAP and FIO2 30 % Weak and SOB. Output was poor Objective Vital Signs Date Time Temp Pulse Resp B/P (MAP) Pulse Ox O2 Delivery O2 Flow Rate FiO2 11/13/17 12:00 89 11/13/17 11:00 100 Bi-Pap 35 11/13/17 10:00 89 11/13/17 08:17 100 25 11/13/17 08:00 89 11/13/17 08:00 98.5 85 24 154/104 (121) 100 11/13/17 07:00 100 Bi-Pap 35 11/13/17 06:00 90 11/13/17 04:21 100 30 11/13/17 04:00 82 11/13/17 04:00 98.2 82 20 160/106 (124) 100 11/13/17 03:00 100 Bi-Pap 35 11/13/17 02:00 90 11/13/17 00:47 100 30 11/13/17 00:00 98.7 84 19 171/108 (129) 100 11/13/17 00:00 84 11/12/17 23:00 100 Bi-Pap 35 11/12/17 22:00 91 11/12/17 20:10 93 Nasal Cannula 3.00 11/12/17 20:00 98.4 87 22 146/94 (111) 100 11/12/17 20:00 87 11/12/17 19:32 100 30 11/12/17 19:00 94 Bi-Pap 35 11/12/17 18:36 94 30 11/12/17 18:00 103 11/12/17 16:00 98.6 116 28 170/105 (126) 92 11/12/17 16:00 116 11/12/17 15:00 96 Nasal Cannula 11/12/17 14:00 93 I/O 11/12/17 11/12/17 11/12/17 11/13/17 11/13/17 11/13/17 06:59 14:59 22:59 06:59 14:59 22:59 Intake Total 50 ml 2050 ml 530 ml Output Total 2000 ml 850 ml Balance 50 ml 50 ml -320 ml Intake Oral 900 ml 480 ml IV Total 50 ml 1150 ml 50 ml Output Urine Total 2000 ml 850 ml # Voids 5 # Bowel Movements 2 2 0 Result Diagram: 11/12/17 0514 11/12/17 1944 Objective Remarks GENERAL: This is a middle aged, obese male who is having 2+ leg edema with induration of the skin of the lower extremities. HEENT: Head is normocephalic. Pupils are reactive. Sclerae were clear. Ears no inflammation. Nasal mucosa injected. NECK: Supple, no bruits or thyroid enlargement or lymphadenopathy. CHEST: Decreased breath sounds at the bases with wheezes over both lung gomez, prolonged expirations.Occ Crackles. HEART: Sounds are irregular S1 and S2. No murmur. No S3. ABDOMEN: Soft, protuberant and liver edge 2 fingerbreadths below the costal margin. Bowel sounds are active. EXTREMITIES: Decreased pulses. Lymphedema with pigmentation of the skin of the lower extremities. NEUROLOGIC: He is awake and talking .Reflexes 1 + Skin is cool. Assessment and Plan Assessment and Plan IMPRESSION: 1. Hypercapnic respiratory failure. 2. Pulmonary edema and right pleural effusion. 3. Acute renal failure. 4. Diabetes mellitus. 5. Anemia. 6. History of human immunodeficiency virus disease. 7. Urinary tract infection and sepsis. 8. Probable pneumonia. Plan : 1. Continue nebs qid , duoneb 2. BIPAP 15/6, FIo2 28 % at HS 3. Continue antibiotics per ID 4. CBC,BMP, in am 5. Cont Lasix IV daily 6. Solumedrol 40 mg IV BID 7. O2 N/C 3 L daytime Zahida Brannon MD November 13, 2017 12:42
--- NOTE | 2017-11-13 13:56 | HHI.IDPN ---
Subjective Subjective Remarks remains on BIPAP 01/11, FiO2 35 % afebrile, nl WBC Antibiotics avicaz azithro atovaquone Lines Line sites ok Past Medical History reviewed Allergies: Coded Allergies: benazepril (Unverified Allergy, Severe, SWELLING MOUTH ,TONGUE, 03/20/17) captopril (Unverified Allergy, Severe, SWELLING MOUTH ,TONGUE, 03/20/17) enalaprilat (Unverified Allergy, Severe, SWELLING MOUTH ,TONGUE, 03/20/17) fosinopril (Unverified Allergy, Severe, SWELLING MOUTH ,TONGUE, 03/20/17) lisinopril (Unverified Allergy, Severe, SWELLING MOUTH ,TONGUE, 03/20/17) quinapril (Unverified Allergy, Severe, SWELLING MOUTH ,TONGUE, 03/20/17) Objective . Vital Signs Date Time Temp Pulse Resp B/P (MAP) Pulse Ox O2 Delivery O2 Flow Rate FiO2 11/13/17 12:00 89 11/13/17 11:00 100 Bi-Pap 35 11/13/17 10:00 89 11/13/17 08:17 100 25 11/13/17 08:00 89 11/13/17 08:00 98.5 85 24 154/104 (121) 100 11/13/17 07:00 100 Bi-Pap 35 11/13/17 06:00 90 11/13/17 04:21 100 30 11/13/17 04:00 82 11/13/17 04:00 98.2 82 20 160/106 (124) 100 11/13/17 03:00 100 Bi-Pap 35 11/13/17 02:00 90 11/13/17 00:47 100 30 11/13/17 00:00 98.7 84 19 171/108 (129) 100 11/13/17 00:00 84 11/12/17 23:00 100 Bi-Pap 35 11/12/17 22:00 91 11/12/17 20:10 93 Nasal Cannula 3.00 11/12/17 20:00 98.4 87 22 146/94 (111) 100 11/12/17 20:00 87 11/12/17 19:32 100 30 11/12/17 19:00 94 Bi-Pap 35 11/12/17 18:36 94 30 11/12/17 18:00 103 11/12/17 16:00 98.6 116 28 170/105 (126) 92 11/12/17 16:00 116 11/12/17 15:00 96 Nasal Cannula 11/12/17 14:00 93 . Laboratory Tests Test 11/12/17 05:14 White Blood Count 7.0 TH/MM3 Red Blood Count 3.63 MIL/MM3 Hemoglobin 9.3 GM/DL Hematocrit 31.2 % Mean Corpuscular Volume 85.9 FL Mean Corpuscular Hemoglobin 25.6 PG Mean Corpuscular Hemoglobin Concent 29.8 % Red Cell Distribution Width 21.2 % Platelet Count 143 TH/MM3 Mean Platelet Volume 7.8 FL Laboratory Tests Test 11/12/17 05:14 11/12/17 19:44 Blood Urea Nitrogen 87 MG/DL Creatinine 2.87 MG/DL Random Glucose 193 MG/DL Calcium Level 8.1 MG/DL Magnesium Level 2.3 MG/DL Sodium Level 143 MEQ/L Potassium Level 6.3 MEQ/L 4.9 MEQ/L Chloride Level 104 MEQ/L Carbon Dioxide Level 35.0 MEQ/L Anion Gap 4 MEQ/L Estimat Glomerular Filtration Rate 28 ML/MIN Imaging Last Impressions Chest X-Ray 11/10/17 0000 Signed Impressions: CONCLUSION: 1. Mild improving bibasilar infiltrates. 2. Stable prominent cardiomegaly. 3. Pulmonary venous congestion. Renal Ultrasound 10/26/17 0000 Signed Impressions: Service Date/Time: Thursday, October 26, 2017 20:06 - CONCLUSION: 1. There is some increased echogenicity of the renal parenchyma suggestive of chronic medical renal disease. 2. No evidence of hydronephrosis. 3. Small 1.1 cm cyst upper pole left kidney. Giuseppe Street MD Physical Exam CONSTITUTIONAL/GENERAL: This is an obese middle aged male patient, in no apparent distress. quite lethargic TUBES/LINES/DRAINS: SKIN: No jaundice, rashes, or lesions. CARDIOVASCULAR: Regular rate and rhythm without murmurs, gallops, or rubs. No JVD. Peripheral pulses symmetric. + 2-3/6 harsh systolic murmur RESPIRATORY/CHEST: Symmetric, unlabored respirations. Clear to auscultation. Breath sounds markedly diominished bilaterally. GASTROINTESTINAL: Abdomen soft, non-tender, nondistended. No hepato-splenomegaly , or palpable masses. No guarding. Bowel sounds present. GENITOURINARY: Without palpable bladder distension. Wang catheter in place with cloudy urine MUSCULOSKELETAL: Extremities without clubbing, cyanosis, Non pitting chronic appearing 3+ edema of RLE and 1+ LLE edema. No cellulitic changes No joint tenderness or effusion noted. No calf tenderness. No mottling or clubbing. 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 bactrim contriutng: better with withholding TS Rec's: CT chest when feasible cont PCP and MAC profilaxis - will avoid bactrim - will start Atovaquine dc Avycaz (ASP criteria: CRE Kleb pneumo) Follow cultures follow clinically If intubated will send all resp clx Pt needs to be set up with HIV provider and restarted on HAART upon dc; however if long stay is projected we will need to start in -house. Gabby Drew MD November 13, 2017 13:56
[2017-11-13 15:36] LABS: BICARBONATE 34.1 MEQ/L (21.0-32.0); CALCIUM 8.3 MG/DL (8.5-10.1); CREATININE 2.74 MG/DL (0.60-1.30)
[2017-11-14] VITALS (18 sets, daily range): BP systolic 133–158; BP diastolic 80–106; PULSE 79–97; RESP 19–31; TEMP 97.8–98.3; O2SAT 6–100
[2017-11-14] MEDS: INSULIN NovoLIN REGULAR SUPPLEMENTAL SCALE SQ SCH ×6 (00:41→20:00)
[2017-11-14] MEDS: CHLORHEXIDINE GLUCONATE 2 % 1 PACK (2 CLOTHS) TOP SCH (04:00)
[2017-11-14] MEDS: CHLORHEXIDINE GLUCONATE 2 % 1 PACK (2 CLOTHS)(taper/protocol) TOPICAL SCH (04:00)
[2017-11-14] MEDS: hydrALAZINE HCL 25 MG TAB PO SCH ×3 (05:18→20:52)
--- NOTE | 2017-11-14 06:51 | RADRPT ---
EXAM DATE: 11/14/2017 6:11 AM EDT AGE/SEX: 56 years / Male INDICATIONS: Shortness of breath, possible pulmonary disease. CLINICAL DATA: This is the patient's subsequent encounter. Patient reports that signs and symptoms h ave been present for 1 week and indicates a pain score of Nonresponsive. MEDICAL/SURGICAL HISTORY: Diabetes mellitus type II. Cardiovascular disease. Pacemaker. [place] [facility] [place]. . FINDINGS: There is mild haziness to the perivascular structures most likely pulmonary edema. Moderat e cardiomegaly seen. Focal consolidation is not seen. CONCLUSION: Slight CHF Electronically signed by: Caitlin Baldwin MD 11/14/2017 6:50 AM EDT
[2017-11-14] MEDS: ATOVAQUONE SUSP 750 MG/5 ML UDC PO SCH ×2 (08:41→08:48)
[2017-11-14] MEDS: BUDESONIDE-FORMOTEROL 160/4.5 MCG INHALER INH SCH ×2 (08:42→20:52)
[2017-11-14] MEDS: methylPREDNISolone SOD SUCC 40 MG/1 ML VIAL IV PUSH SCH ×2 (08:42→20:52)
[2017-11-14] MEDS: SODIUM CHLORIDE 0.9% FLUSH 10 ML FLUSH IV FLUSH SCH ×2 (08:42→20:52)
[2017-11-14] MEDS: QUEtiapine FUMARATE 25 MG TAB PO SCH ×2 (08:42→15:07)
[2017-11-14] MEDS: CARVEDILOL 12.5 MG TAB PO SCH ×2 (08:42→20:52)
[2017-11-14] MEDS: amLODIPine BESYLATE 5 MG TAB PO SCH (08:42)
[2017-11-14] MEDS: FUROSEMIDE 100 MG/10 ML VIAL IV PUSH SCH (08:43)
[2017-11-14] MEDS: FAMOTIDINE 20 MG TAB PO SCH ×2 (08:43→20:52)
--- NOTE | 2017-11-14 09:37 | HHI.NPPN ---
Subjective General Problems: Anemia, Edema, Hypertension Renal Failure: Stage IV History of Present Illness 56-year-old male with a past medical history of hypertension, history of HIV, chronic lymphedema of the legs, diabetes mellitus, sleep apnea, ischemic heart disease, was brought to the hospital with altered mental status and not feeling well. I was called to see the patient because of elevated BUN and creatinine and high potassium. The patient has known history of chronic kidney disease and patient was seen by me when he was here in March last year. At that time, he had creatinine in the range of 2.3-3.0 and he was discharged with a creatinine of 2.5 and now he came with a creatinine of 5.0 and also potassium of 7.3. Additional Remarks Patient is awake continues to be short of breath. Used Bipap all last night. (Sameera Rudd) Review of Systems Respiratory Lungs: SOB (Sameera Rudd) Cardiovascular Cardiac Remarks denies any Chest pain (Sameera Rudd) Gastrointestinal GI Remarks denies any abdominal pain (Sameera Rudd) Objective Data Data Vital Signs Date Time Temp Pulse Resp B/P (MAP) Pulse Ox O2 Delivery O2 Flow Rate FiO2 11/14/17 08:00 97 11/14/17 08:00 98.2 97 26 156/98 (117) 100 11/14/17 07:00 98 Bi-Pap 35 11/14/17 06:00 85 11/14/17 05:25 89 11/14/17 04:00 98.0 85 23 149/106 (120) 94 11/14/17 03:37 94 25 11/14/17 03:04 96 Nasal Cannula 3.00 11/14/17 02:00 79 22 133/87 (102) 96 11/14/17 02:00 79 11/14/17 01:00 80 20 146/102 (117) 95 11/14/17 00:00 97.8 79 19 135/88 (104) 99 11/14/17 00:00 99 Bi-Pap 35 11/14/17 00:00 79 11/13/17 23:18 100 35 11/13/17 23:00 82 21 144/94 (111) 8 11/13/17 22:00 88 25 151/90 (110) 98 11/13/17 22:00 88 11/13/17 21:00 92 23 147/82 (103) 99 11/13/17 20:01 98.0 92 20 138/77 (97) 99 11/13/17 20:00 99 Bi-Pap 35 11/13/17 20:00 96 11/13/17 19:37 100 Nasal Cannula 4.00 11/13/17 19:37 100 25 11/13/17 19:00 95 20 150/87 (108) 100 11/13/17 18:00 89 11/13/17 16:00 89 11/13/17 16:00 89 11/13/17 16:00 98.6 83 24 150/101 (117) 100 11/13/17 15:00 100 Bi-Pap 35 11/13/17 14:00 89 11/13/17 12:00 89 11/13/17 11:00 100 Bi-Pap 35 11/13/17 10:00 89 (Sameera Rudd) -: 11/12/17 0514 11/13/17 1435 Imaging Last Impressions Chest X-Ray 11/14/17 0600 Signed Impressions: CONCLUSION: Slight CHF Renal Ultrasound 10/26/17 0000 Signed Impressions: Service Date/Time: Thursday, October 26, 2017 20:06 - CONCLUSION: 1. There is some increased echogenicity of the renal parenchyma suggestive of chronic medical renal disease. 2. No evidence of hydronephrosis. 3. Small 1.1 cm cyst upper pole left kidney. Giuseppe Street MD (Sameera Rudd) Physical Exam General Appearance: No Acute Distress (Sameera Rudd) Eyes Eye Exam: Pupils Equal (Sameera Rudd) Throat Throat Exam: Oral Mucosa [place] & Moist (Sameera Rudd) Pulmonary Resp Exam: Rhonchi, Decreased Bases, Diminished Breath Sounds (Sameera Rudd) Cardiology CV Exam: Regular (Sameera Rudd) Gastrointestinal/Abdomen GI Exam: Soft, Non-Tender, Bowel Sounds Present, Distended (Sameera Rudd) Integumentary Skin Exam: Clear, Warm (Sameera Rudd) Extremeties Extremities Exam: Pitting Edema, Dependent Edema Extremeties Remarks lymphedema right leg (Sameera Rudd) Neurologic Neuro Exam: Alert, Awake, Oriented, Obtunded (Sameera Rudd) Psychiatric Psych Exam: Appropriate Responses (Sameera Rudd) Assessment/Plan Assessment Summary: Anemia of CKD, CKD Stage V Electrolyte Assessment: Hyperkalemia Problem List: (1) Stage 5 chronic kidney disease ICD Codes: N18.5 - Chronic kidney disease, stage 5 (2) DM (diabetes mellitus) ICD Codes: E11.9 - DM (diabetes mellitus) Status: Chronic (3) Chronic systolic CHF (congestive heart failure) ICD Codes: I50.22 - Chronic systolic CHF (congestive heart failure) Status: Chronic (4) Hyperkalemia ICD Codes: E87.5 - Hyperkalemia Status: Acute (5) Hypertension ICD Codes: I10 - Hypertension Status: Chronic (6) COPD exacerbation ICD Codes: J44.1 - COPD exacerbation Status: Acute (7) Respiratory distress ICD Codes: R06.00 - Respiratory distress Status: Acute (8) HIV (human immunodeficiency virus infection) ICD Codes: Z21 - HIV (human immunodeficiency virus infection) Status: Chronic (9) PNA (pneumonia) ICD Codes: J18.9 - PNA (pneumonia) Status: Acute (10) Hepatitis C ICD Codes: B19.20 - Hepatitis C Status: Chronic Plan Patient has been on dialysis last one was on 10/28 Vas-Cath was removed Patient is worsening renal failure with fluid accumulation EF of 20%, COPD Carbon dioxide retention Critically ill transferred to ICU He has COPD with recurrent resp. failure. On Lasix 80 mg continues to have significant edema and chest xray with slight CHF Will increase lasix to BID Urinary output 1.5L/24 hours Low potassium diet Labs pending. (Sameera Rudd) Plan Patient seen and examined, agree with above. K is normal, back on CPAP. Creatinine is same, continue Lasix, now increased to BID. Follow the urine out put and BMP. (Millicent Ga MD) Sameera Rudd November 14, 2017 09:37 Millicent Ga MD November 14, 2017 12:29
--- NOTE | 2017-11-14 12:54 | HHI.PR ---
Subjective Remarks He is back on BiPAP and FIO2 30 % Weak and SOB. Answers questions. Objective Vital Signs Date Time Temp Pulse Resp B/P (MAP) Pulse Ox O2 Delivery O2 Flow Rate FiO2 11/14/17 12:00 83 11/14/17 12:00 98.3 83 31 158/103 (121) 91 11/14/17 11:00 92 Bi-Pap 30 11/14/17 10:00 81 11/14/17 10:00 96 Bi-Pap 30 11/14/17 08:30 92 Nasal Cannula 3.00 11/14/17 08:00 97 11/14/17 08:00 98.2 97 26 156/98 (117) 100 11/14/17 07:00 94 Bi-Pap 25 11/14/17 06:00 85 11/14/17 05:25 89 11/14/17 04:00 98.0 85 23 149/106 (120) 94 11/14/17 03:37 94 25 11/14/17 03:04 96 Nasal Cannula 3.00 11/14/17 02:00 79 22 133/87 (102) 96 11/14/17 02:00 79 11/14/17 01:00 80 20 146/102 (117) 95 11/14/17 00:00 97.8 79 19 135/88 (104) 99 11/14/17 00:00 99 Bi-Pap 35 11/14/17 00:00 79 11/13/17 23:18 100 35 11/13/17 23:00 82 21 144/94 (111) 8 11/13/17 22:00 88 25 151/90 (110) 98 11/13/17 22:00 88 11/13/17 21:00 92 23 147/82 (103) 99 11/13/17 20:01 98.0 92 20 138/77 (97) 99 11/13/17 20:00 99 Bi-Pap 35 11/13/17 20:00 96 11/13/17 19:37 100 Nasal Cannula 4.00 11/13/17 19:37 100 25 11/13/17 19:00 95 20 150/87 (108) 100 11/13/17 18:00 89 11/13/17 16:00 89 11/13/17 16:00 89 11/13/17 16:00 98.6 83 24 150/101 (117) 100 11/13/17 15:00 100 Bi-Pap 35 11/13/17 14:00 89 I/O 11/13/17 11/13/17 11/13/17 11/14/17 11/14/17 11/14/17 07:00 15:00 23:00 07:00 15:00 23:00 Intake Total 530 ml 480 ml 520 ml Output Total 850 ml 900 ml 600 ml Balance -320 ml -420 ml -80 ml Intake Oral 480 ml 480 ml 520 ml IV Total 50 ml Output Urine Total 850 ml 900 ml 600 ml # Bowel Movements 0 2 1 Result Diagram: 11/12/17 0514 11/13/17 1435 Objective Remarks GENERAL: This is a middle aged, obese male who is having 2+ leg edema with induration of the skin of the lower extremities. HEENT: Head is normocephalic. Pupils are reactive. Sclerae were clear. Ears no inflammation. Nasal mucosa injected. NECK: Supple, no bruits or thyroid enlargement or lymphadenopathy. CHEST: Decreased breath sounds at the bases with wheezes over both lung gomez, prolonged expirations. Occ Crackles. HEART: Sounds are irregular S1 and S2. No murmur. No S3. ABDOMEN: Soft, protuberant and liver edge 2 fingerbreadths below the costal margin. Bowel sounds are active. EXTREMITIES: Decreased pulses. Lymphedema with pigmentation of the skin of the lower extremities. NEUROLOGIC: He is awake and talking .Reflexes 1 + Skin is dry. Assessment and Plan Assessment and Plan IMPRESSION: 1. Hypercapnic respiratory failure. 2. Pulmonary edema and right pleural effusion. 3. Acute renal failure. 4. Diabetes mellitus. 5. Anemia. 6. History of human immunodeficiency virus disease. 7. Urinary tract infection and sepsis. 8. Probable pneumonia. Plan : 1. Continue nebs qid , duoneb 2. BIPAP 15/6, FIo2 30 % 3. Continue antibiotics per ID 4. ABG CBC,BMP, in am 5. Cont Lasix IV daily 6. Cont Solumedrol 40 mg IV BID 7. Symbicort 160/4.5 mcg , 2 puffs bid Zahida Brannon MD November 14, 2017 12:54
--- NOTE | 2017-11-14 13:50 | HHI.CCPN ---
Subjective Remarks/Hospital Course 10/26: This is a 56-year-old male who presents to the emergency department for altered mental status and not feeling well. The patient is quite altered and cannot provide any reliable history, and is only mumbling incoherently. He is protecting his airway and on room air, but cannot provide any additional information. Per the emergency department reports and [facility] reports, he has a history of hepatitis B, hepatitis C, COPD, chronic kidney disease of unknown stage, hypertension, CHF. In the emergency department he was found to have a creatinine of 5.08, BUN 65, potassium 7.3, sodium 135. He is afebrile with a normal white count. He is anemic with a hemoglobin of 9.2. Past visits would suggest his baseline creatinine to be between 2.3 and 3.09. He does have a urinalysis which is significant for pyuria with proteinuria and a large amount of bacteria suggestive of a urinary tract infection. On-call solid waste division supervisor was contacted due to the hyperkalemia and recommended medical management including insulin, D50, Kayexalate, bicarbonate and serial electrolyte's and recommended against emergent dialysis at this time. No additional information is available from the patient. The patient has been in the ICU for acute renal failure with life-threatening electrolyte abnormalities. Review systems is unobtainable due to his clinical condition. The remainder of the history is obtained from review of the medical record. 10/27: Patient seen earlier this a.m., remains lethargic but arousable with periods of agitation. Hemodialysis catheter was placed emergently at bedside and nephrology was consulted for dialysis. Patient is arousable, mumbles words , knows his name but he is not able to provide any history. Urine output is minimal. No bowel movement yet post Kayexalate. ROS: -Unobtainable due to patient's mental status. 10/28 Patient s/p emergent HD yesterday for hyperkalemia K 5.2 this morning from 7.3 on arrival. On BIPAP 18/5 with 30 %FIO2. On Precedex drip for agitation. 10/29 No events overnight. Off Precedex drip. Remains on BIPAP . Afebrile. Awake and alert. s/p HD yesterday with removal 3L. 10/30 Patient had 6 runs nonsustained Vtach ( asymptomatic) For HD today. 10/31 No events overnight, patient is lying in bed in NAD. Afebrile. 11/04: Critical care he consulted by Dr. Sauceda for worsening respiratory status. ABG done on the floor revealed PCO2 in the 70s with respiratory distress. Patient was transferred to the ICU and placed on BiPAP with full facemask. I evaluated the patient shortly following his arrival to the ICU. At that time he was drowsy, easily arousable, on BiPAP with full facemask. He was also noted to be hyperkalemic with a potassium of 5.7 for which I initiated treatment with glucose/insulin/bicarb/Kayexalate. I spoke with Dr. Ga who was there to evaluate patient as well. Awaiting ABG on BiPAP. Subjective: 11/05 Bipap titrated up to 20/5 due to hypercapnia on morning ABG with pH 7.23/ PaCO2 of 74/PaO2 of 92 on 15/ and 30%. He is alert and interactive currently. He request something for anxiety because he states he is quite claustrophobic with BiPAP mask in place. Specifically he request morphine and Ativan. He is orthopneic and cannot comply with CT scan ordered per infectious disease. 11/06: On BiPAP. Very hungry and wants his diet changed. 11/11: Critical care reconsulted for lethargy and borderline respiratory status with possible need for intubation. When I evaluated patient he was drowsy to arousable on BiPAP with full facemask. He had received dose of Ativan and morphine last night. 11/12: Drowsy, easily arousable. Tolerating p.o. diet. On as needed BiPAP. 11/13: Awake and alert. On BiPAP overnight. Tolerating nasal cannula during daytime. Tolerating p.o. diet. Potassium improved with Kayexalate yesterday. 11/14: Drowsy, easily arousable. On BiPAP with full facemask. Tolerating p.o. diet. Objective Vital Signs Date Time Temp Pulse Resp B/P (MAP) Pulse Ox O2 Delivery O2 Flow Rate FiO2 11/14/17 12:00 83 11/14/17 12:00 98.3 31 158/103 (121) 91 11/14/17 11:00 Bi-Pap 30 11/14/17 08:30 3.00 Intake and Output 11/14/17 11/14/17 11/15/17 08:00 16:00 00:00 Intake Total 520 ml Output Total 600 ml Balance -80 ml Result Diagram: 11/12/17 0514 11/13/17 1435 Imaging Last Impressions Chest X-Ray 11/10/17 0000 Signed Impressions: CONCLUSION: 1. Mild improving bibasilar infiltrates. 2. Stable prominent cardiomegaly. 3. Pulmonary venous congestion. Renal Ultrasound 10/26/17 0000 Signed Impressions: Service Date/Time: Thursday, October 26, 2017 20:06 - CONCLUSION: 1. There is some increased echogenicity of the renal parenchyma suggestive of chronic medical renal disease. 2. No evidence of hydronephrosis. 3. Small 1.1 cm cyst upper pole left kidney. Giuseppe Street MD Procedures 10/27/17 right femoral Vas-Cath placement Objective Remarks GENERAL: Middle-aged gentleman laying in bed, on BiPAP with full facemask HEENT: Normocephalic. Atraumatic. Pupils are equal and reactive, sclerae are anicteric. NECK: Trachea is midline. There is no JVD CHEST: On BiPAP, diminished breath sounds bilaterally, no wheeze. CARDIOVASCULAR: Regular S1 and S2. No murmurs appreciated. ABDOMEN: Soft, nontender, nondistended. No guarding. Bowel sounds are present. No hepatomegaly or splenomegaly appreciated MUSCULOSKELETAL: Chronic nonpitting edema, 3+ down the length of the right leg. Left lower extremity is about 1+ edema. NEUROLOGICAL: Drowsy, arousable, following commands. Moving both upper extremities. A/P Assessment and Plan Plan by systems: Neurologic: Acute metabolic encephalopathy Uremic encephalopathy History of illicit substance use Monitor neuro status Avoid long-acting sedatives/narcotics UDS + Opiates on admission Respiratory: Acute hypercapnic respiratory failure COPD Continue BiPAP as needed. Nasal cannula as tolerated. Bronchodilators, continue solumederol 40mg Q8, Symbicort 160/4.[address] chest has been ordered per infectious disease but he is orthopneic and unable to obtain at this time, could proceed with scan if he requires intubation. CO2 retention noted. If respiratory status declines despite BiPAP may require endotracheal intubation. Cardiovascular: Chronic systolic heart failure Hypertension Pulmonary hypertension Coreg 6.25mg BID, add Hydralazine 25mg Q8 Monitor HR and BP keep MAP>65mmHg Echo showed EF 20%, mod-severe pulm HTN PAP 65mmHg Renal: Acute kidney injury superimposed on chronic renal insufficiency, unknown stage - likely secondary to urinary tract infection Urinary tract infection Hyperkalemia Monitor renal function, I/O's, avoid nephrotoxins Off hemodialysis after first few sessions per Dr. Ga. Renal- Dr. Ga Renal US: There is increased echogenicity of the renal parenchyma suggestive of chronic medical renal disease. No evidence of hydronephrosis. Small 1.1 cm cyst upper pole left kidney. Kayexalate for hyperkalemia. Received glucose, insulin, calcium. On bicarb drip per renal. FEN/GI: PO diet as tolerated On Pepcid 10mg IV Q12 Heme/ID: Anemia, unknown cause, likely secondary to chronic disease Urinary tract infection, HIV Low CD4 (14) Monitor CBC urine culture : ESBL Kleb Continue Abx per ID. On PCP and MAC prophylaxis per ID. [email or web address], atovaquone Endocrine: SSI with accuchecks Prophylaxis: GI Prophylaxis Pepcid DVT Prophylaxis -- SCDs Subcu heparin Lines: Peripheral IVs Jethro Matthew MD November 14, 2017 13:50
[2017-11-14] MEDS: HEPARIN SODIUM - SQ 10,000 UNITS/ML VIAL SQ SCH ×2 (15:07→20:53)
[2017-11-14] MEDS: RESP: ALBUTEROL 2.5 MG/IPRATROPIUM 0.5 MG NEB (PRN) INH (22:39)
[2017-11-15] VITALS (15 sets, daily range): BP systolic 129–165; BP diastolic 86–112; PULSE 67–100; RESP 14–19; TEMP 97.1–98.6; O2SAT 90–100
[2017-11-15] MEDS: RESP: ALBUTEROL 2.5 MG/IPRATROPIUM 0.5 MG NEB (PRN) INH ×2 (03:53→20:34)
[2017-11-15] MEDS: INSULIN NovoLIN REGULAR SUPPLEMENTAL SCALE SQ SCH ×7 (04:00→23:59)
[2017-11-15] MEDS: CHLORHEXIDINE GLUCONATE 2 % 1 PACK (2 CLOTHS) TOP SCH (04:00)
[2017-11-15] MEDS: CHLORHEXIDINE GLUCONATE 2 % 1 PACK (2 CLOTHS)(taper/protocol) TOPICAL SCH (04:00)
[2017-11-15] MEDS: hydrALAZINE HCL 25 MG TAB PO SCH ×3 (04:45→20:52)
[2017-11-15] MEDS: BUDESONIDE-FORMOTEROL 160/4.5 MCG INHALER INH SCH ×2 (07:26→20:52)
[2017-11-15] MEDS: SODIUM CHLORIDE 0.9% FLUSH 10 ML FLUSH IV FLUSH SCH ×2 (07:27→20:53)
[2017-11-15] MEDS: FAMOTIDINE 20 MG TAB PO SCH ×2 (07:28→20:52)
[2017-11-15] MEDS: FUROSEMIDE 100 MG/10 ML VIAL IV PUSH SCH (07:28)
[2017-11-15] MEDS: methylPREDNISolone SOD SUCC 40 MG/1 ML VIAL IV PUSH SCH (07:28)
[2017-11-15] MEDS: CARVEDILOL 12.5 MG TAB PO SCH ×2 (07:28→20:52)
[2017-11-15] MEDS: ATOVAQUONE SUSP 750 MG/5 ML UDC PO SCH (07:29)
[2017-11-15] MEDS: QUEtiapine FUMARATE 25 MG TAB PO SCH ×2 (07:29→10:33)
[2017-11-15] MEDS: amLODIPine BESYLATE 5 MG TAB PO SCH (07:29)
[2017-11-15 10:17] LABS: AUTOMATED NEUTROPHIL # 3.4 TH/MM3 (1.8-7.7); BASOPHIL % 0.8 % (0.0-2.0); HEMATOCRIT 29.1 % (39.0-51.0); HEMOGLOBIN 8.6 GM/DL (13.0-17.0); LYMPH % 3.3 % (9.0-44.0); LYMPHOCYTE # 0.1 TH/MM3 (1.0-4.8); MEAN CELL VOLUME 86.7 FL (80.0-100.0); MEAN CORPUSCULAR HEMOGLOBIN 25.7 PG (27.0-34.0); MEAN PLATELET VOLUME 7.9 FL (7.0-11.0); MONO % 6.1 % (0.0-8.0); MONOCYTE # 0.2 TH/MM3 (0-0.9); NEUT % 89.8 % (16.0-70.0); PLATELET COUNT 78 TH/MM3 (150-450); RED BLOOD COUNT 3.35 MIL/MM3 (4.50-5.90); RED CELL DISTRIBUTION WIDTH 21.5 % (11.6-17.2); WHITE BLOOD COUNT 3.8 TH/MM3 (4.0-11.0)
[2017-11-15] MEDS: HEPARIN SODIUM - SQ 10,000 UNITS/ML VIAL SQ SCH ×2 (10:33→21:14)
[2017-11-15 10:53] LABS: BICARBONATE 33.4 MEQ/L (21.0-32.0); CALCIUM 8.1 MG/DL (8.5-10.1); CREATININE 2.55 MG/DL (0.60-1.30)
[2017-11-15 11:16] LABS: MEAN CORPUSCULAR HGB CONC 29.7 % (32.0-36.0)
[2017-11-15 11:17] LABS: OVALOCYTES 1+ (NORMAL); TEARDROP RBCS 1+ (NORMAL)
--- NOTE | 2017-11-15 13:22 | HHI.NPPN ---
Subjective General Problems: Anemia, Edema, Hypertension Renal Failure: Stage IV History of Present Illness 56-year-old male with a past medical history of hypertension, history of HIV, chronic lymphedema of the legs, diabetes mellitus, sleep apnea, ischemic heart disease, was brought to the hospital with altered mental status and not feeling well. I was called to see the patient because of elevated BUN and creatinine and high potassium. The patient has known history of chronic kidney disease and patient was seen by me when he was here in March last year. At that time, he had creatinine in the range of 2.3-3.0 and he was discharged with a creatinine of 2.5 and now he came with a creatinine of 5.0 and also potassium of 7.3. Additional Remarks Patient is awake continues to be short of breath. Used Bipap all last night. Review of Systems Respiratory Lungs: SOB Cardiovascular Cardiac Remarks denies any Chest pain Gastrointestinal GI Remarks denies any abdominal pain Objective Data Data Vital Signs Date Time Temp Pulse Resp B/P (MAP) Pulse Ox O2 Delivery O2 Flow Rate FiO2 11/15/17 12:00 98.0 67 14 135/86 (102) 93 11/15/17 12:00 67 11/15/17 11:00 94 Bi-Pap 30 11/15/17 10:00 70 11/15/17 08:20 100 Nasal Cannula 2.00 11/15/17 08:00 98.6 94 17 154/106 (122) 99 11/15/17 08:00 94 11/15/17 07:00 96 Nasal Cannula 4.00 11/15/17 06:00 86 11/15/17 06:00 91 11/15/17 04:00 91 11/15/17 04:00 97.6 91 19 159/99 (119) 100 11/15/17 03:54 99 Nasal Cannula 3.00 11/15/17 03:00 Nasal Cannula 4.00 11/15/17 02:00 77 11/15/17 00:00 85 11/15/17 00:00 97.1 85 165/112 (129) 95 11/14/17 23:00 96 Bi-Pap 30 11/14/17 22:40 6 30 11/14/17 22:00 91 11/14/17 20:00 94 11/14/17 20:00 97.8 94 22 154/80 (104) 100 11/14/17 19:00 97 Bi-Pap 30 11/14/17 18:00 95 11/14/17 16:00 98.2 96 28 144/92 (109) 92 11/14/17 16:00 96 11/14/17 15:10 92 30 11/14/17 15:00 96 Bi-Pap 30 11/14/17 14:19 94 Nasal Cannula 4.00 11/14/17 14:00 95 -: 11/15/17 0945 11/15/17 0945 Physical Exam General Appearance: No Acute Distress Appearance Remarks On BIPAP and resp. distress. Eyes Eye Exam: Pupils Equal Throat Throat Exam: Oral Mucosa Tea & Moist Pulmonary Resp Exam: Rhonchi, Decreased Bases, Diminished Breath Sounds Cardiology CV Exam: Regular Gastrointestinal/Abdomen GI Exam: Soft, Non-Tender, Bowel Sounds Present, Distended Integumentary Skin Exam: Clear, Warm Extremeties Extremities Exam: Pitting Edema, Dependent Edema Neurologic Neuro Exam: Alert, Awake, Oriented, Obtunded Psychiatric Psych Exam: Appropriate Responses Assessment/Plan Assessment Summary: Anemia of CKD, CKD Stage V Electrolyte Assessment: Hyperkalemia Problem List: (1) Stage 5 chronic kidney disease ICD Codes: N18.5 - Chronic kidney disease, stage 5 (2) DM (diabetes mellitus) ICD Codes: E11.9 - DM (diabetes mellitus) Status: Chronic (3) Chronic systolic CHF (congestive heart failure) ICD Codes: I50.22 - Chronic systolic CHF (congestive heart failure) Status: Chronic (4) Hyperkalemia ICD Codes: E87.5 - Hyperkalemia Status: Acute (5) Hypertension ICD Codes: I10 - Hypertension Status: Chronic (6) COPD exacerbation ICD Codes: J44.1 - COPD exacerbation Status: Acute (7) Respiratory distress ICD Codes: R06.00 - Respiratory distress Status: Acute (8) HIV (human immunodeficiency virus infection) ICD Codes: Z21 - HIV (human immunodeficiency virus infection) Status: Chronic (9) PNA (pneumonia) ICD Codes: J18.9 - PNA (pneumonia) Status: Acute (10) Hepatitis C ICD Codes: B19.20 - Hepatitis C Status: Chronic Plan Patient seen and examined, agree with above. K is normal, back on CPAP. Creatinine is same, continue Lasix, now increased to BID. Follow the urine out put and BMP. Millicent Ga MD Nov 15, 2017 13:22
--- NOTE | 2017-11-15 15:18 | HHI.CCPN ---
Subjective Remarks/Hospital Course 10/26: This is a 56-year-old male who presents to the emergency department for altered mental status and not feeling well. The patient is quite altered and cannot provide any reliable history, and is only mumbling incoherently. He is protecting his airway and on room air, but cannot provide any additional information. Per the emergency department reports and [facility] reports, he has a history of hepatitis B, hepatitis C, COPD, chronic kidney disease of unknown stage, hypertension, CHF. In the emergency department he was found to have a creatinine of 5.08, BUN 65, potassium 7.3, sodium 135. He is afebrile with a normal white count. He is anemic with a hemoglobin of 9.2. Past visits would suggest his baseline creatinine to be between 2.3 and 3.09. He does have a urinalysis which is significant for pyuria with proteinuria and a large amount of bacteria suggestive of a urinary tract infection. On-call can handler was contacted due to the hyperkalemia and recommended medical management including insulin, D50, Kayexalate, bicarbonate and serial electrolyte's and recommended against emergent dialysis at this time. No additional information is available from the patient. The patient has been in the ICU for acute renal failure with life-threatening electrolyte abnormalities. Review systems is unobtainable due to his clinical condition. The remainder of the history is obtained from review of the medical record. 10/27: Patient seen earlier this a.m., remains lethargic but arousable with periods of agitation. Hemodialysis catheter was placed emergently at bedside and nephrology was consulted for dialysis. Patient is arousable, mumbles words , knows his name but he is not able to provide any history. Urine output is minimal. No bowel movement yet post Kayexalate. ROS: -Unobtainable due to patient's mental status. 10/28 Patient s/p emergent HD yesterday for hyperkalemia K 5.2 this morning from 7.3 on arrival. On BIPAP 18/5 with 30 %FIO2. On Precedex drip for agitation. 10/29 No events overnight. Off Precedex drip. Remains on BIPAP . Afebrile. Awake and alert. s/p HD yesterday with removal 3L. 10/30 Patient had 6 runs nonsustained Vtach ( asymptomatic) For HD today. 10/31 No events overnight, patient is lying in bed in NAD. Afebrile. 11/04: Critical care he consulted by Dr. Sauceda for worsening respiratory status. ABG done on the floor revealed PCO2 in the 70s with respiratory distress. Patient was transferred to the ICU and placed on BiPAP with full facemask. I evaluated the patient shortly following his arrival to the ICU. At that time he was drowsy, easily arousable, on BiPAP with full facemask. He was also noted to be hyperkalemic with a potassium of 5.7 for which I initiated treatment with glucose/insulin/bicarb/Kayexalate. I spoke with Dr. Ga who was there to evaluate patient as well. Awaiting ABG on BiPAP. Subjective: 11/05 Bipap titrated up to 20/5 due to hypercapnia on morning ABG with pH 7.23/ PaCO2 of 74/PaO2 of 92 on 15/ and 30%. He is alert and interactive currently. He request something for anxiety because he states he is quite claustrophobic with BiPAP mask in place. Specifically he request morphine and Ativan. He is orthopneic and cannot comply with CT scan ordered per infectious disease. 11/06: On BiPAP. Very hungry and wants his diet changed. 11/11: Critical care reconsulted for lethargy and borderline respiratory status with possible need for intubation. When I evaluated patient he was drowsy to arousable on BiPAP with full facemask. He had received dose of Ativan and morphine last night. 11/12: Drowsy, easily arousable. Tolerating p.o. diet. On as needed BiPAP. 11/13: Awake and alert. On BiPAP overnight. Tolerating nasal cannula during daytime. Tolerating p.o. diet. Potassium improved with Kayexalate yesterday. 11/14: Drowsy, easily arousable. On BiPAP with full facemask. Tolerating p.o. diet. 11/15: Drowsy, easily arousable. On BiPAP with full facemask. Tolerating p.o. diet. Objective Vital Signs Date Time Temp Pulse Resp B/P (MAP) Pulse Ox O2 Delivery O2 Flow Rate FiO2 11/15/17 15:00 99 Bi-Pap 30 11/15/17 14:00 80 11/15/17 12:00 98.0 14 135/86 (102) 11/15/17 08:20 2.00 Intake and Output 11/15/17 11/15/17 11/16/17 08:00 16:00 00:00 Intake Total 450 ml Balance 450 ml Result Diagram: 11/15/17 0945 11/15/17 0945 Imaging Last Impressions Chest X-Ray 11/10/17 0000 Signed Impressions: CONCLUSION: 1. Mild improving bibasilar infiltrates. 2. Stable prominent cardiomegaly. 3. Pulmonary venous congestion. Renal Ultrasound 10/26/17 0000 Signed Impressions: Service Date/Time: Thursday, October 26, 2017 20:06 - CONCLUSION: 1. There is some increased echogenicity of the renal parenchyma suggestive of chronic medical renal disease. 2. No evidence of hydronephrosis. 3. Small 1.1 cm cyst upper pole left kidney. Giuseppe Street MD Procedures 10/27/17 right femoral Vas-Cath placement Objective Remarks GENERAL: Middle-aged gentleman laying in bed, on BiPAP with full facemask HEENT: Normocephalic. Atraumatic. Pupils are equal and reactive, sclerae are anicteric. NECK: Trachea is midline. There is no JVD CHEST: On BiPAP, diminished breath sounds bilaterally, no wheeze. CARDIOVASCULAR: Regular S1 and S2. No murmurs appreciated. ABDOMEN: Soft, nontender, nondistended. No guarding. Bowel sounds are present. No hepatomegaly or splenomegaly appreciated MUSCULOSKELETAL: Chronic nonpitting edema, 3+ down the length of the right leg. Left lower extremity is about 1+ edema. NEUROLOGICAL: Drowsy, arousable, following commands. Moving both upper extremities. A/P Assessment and Plan Plan by systems: Neurologic: Acute metabolic encephalopathy Uremic encephalopathy History of illicit substance use Monitor neuro status Avoid long-acting sedatives/narcotics UDS + Opiates on admission Respiratory: Acute hypercapnic respiratory failure COPD Continue BiPAP as needed. Nasal cannula as tolerated. Bronchodilators, continue solumederol 40mg Q8, Symbicort 160/4.[address] chest has been ordered per infectious disease but he is orthopneic and unable to obtain at this time, could proceed with scan if he requires intubation. CO2 retention noted. If respiratory status declines despite BiPAP may require endotracheal intubation. Cardiovascular: Chronic systolic heart failure Hypertension Pulmonary hypertension Coreg 6.25mg BID, add Hydralazine 25mg Q8 Monitor HR and BP keep MAP>65mmHg Echo showed EF 20%, mod-severe pulm HTN PAP 65mmHg Renal: Acute kidney injury superimposed on chronic renal insufficiency, unknown stage - likely secondary to urinary tract infection Urinary tract infection Hyperkalemia Monitor renal function, I/O's, avoid nephrotoxins Off hemodialysis after first few sessions per Dr. Ga. Renal- Dr. Ga Renal US: There is increased echogenicity of the renal parenchyma suggestive of chronic medical renal disease. No evidence of hydronephrosis. Small 1.1 cm cyst upper pole left kidney. Kayexalate for hyperkalemia. Received glucose, insulin, calcium. On bicarb drip per renal. FEN/GI: PO diet as tolerated On Pepcid 10mg IV Q12 Heme/ID: Anemia, unknown cause, likely secondary to chronic disease Urinary tract infection, HIV Low CD4 (14) Monitor CBC urine culture : ESBL Kleb Continue Abx per ID. On PCP and MAC prophylaxis per ID. avicaz, azithro, atovaquone Endocrine: SSI with accuchecks Prophylaxis: GI Prophylaxis Pepcid DVT Prophylaxis -- SCDs Subcu heparin Lines: Peripheral IVs Jethro Matthew MD Nov 15, 2017 15:18
--- NOTE | 2017-11-15 17:29 | HHI.PR ---
Subjective Remarks He is on a N/C 3 L to day . Was on BIPAP lat nite and FIO2 30 % Weak and SOB. Seems agitated today. Objective Vital Signs Date Time Temp Pulse Resp B/P (MAP) Pulse Ox O2 Delivery O2 Flow Rate FiO2 11/15/17 16:00 93 11/15/17 15:00 99 Bi-Pap 30 11/15/17 14:00 80 11/15/17 12:00 98.0 67 14 135/86 (102) 93 11/15/17 12:00 67 11/15/17 11:00 94 Bi-Pap 30 11/15/17 10:00 70 11/15/17 08:20 100 Nasal Cannula 2.00 11/15/17 08:00 98.6 94 17 154/106 (122) 99 11/15/17 08:00 94 11/15/17 07:00 96 Nasal Cannula 4.00 11/15/17 06:00 86 11/15/17 06:00 91 11/15/17 04:00 91 11/15/17 04:00 97.6 91 19 159/99 (119) 100 11/15/17 03:54 99 Nasal Cannula 3.00 11/15/17 03:00 Nasal Cannula 4.00 11/15/17 02:00 77 11/15/17 00:00 85 11/15/17 00:00 97.1 85 165/112 (129) 95 11/14/17 23:00 96 Bi-Pap 30 11/14/17 22:40 6 30 11/14/17 22:00 91 11/14/17 20:00 94 11/14/17 20:00 97.8 94 22 154/80 (104) 100 11/14/17 19:00 97 Bi-Pap 30 11/14/17 18:00 95 I/O 11/14/17 11/14/17 11/14/17 11/15/17 11/15/17 11/15/17 07:00 15:00 23:00 07:00 15:00 23:00 Intake Total 520 ml 480 ml 450 ml Output Total 600 ml 400 ml Balance -80 ml 80 ml 450 ml Intake Oral 520 ml 480 ml 450 ml Output Urine Total 600 ml 400 ml # Voids 2 3 # Bowel Movements 1 0 2 Result Diagram: 11/15/17 0945 11/15/17 0945 Objective Remarks GENERAL: This is a middle aged, obese male who is having 2+ leg edema with induration of the skin of the lower extremities. HEENT: Head is normocephalic. Pupils are reactive. Sclerae were clear. Ears no inflammation. NECK: Supple, no bruits or thyroid enlargement or lymphadenopathy. CHEST: Decreased breath sounds at the bases with wheezes over both lung gomez, prolonged expirations. Occ basal Crackles. HEART: Sounds are irregular S1 and S2. No murmur. No S3. ABDOMEN: Soft, protuberant and Bowel sounds are active. EXTREMITIES: Decreased pulses. Lymphedema with pigmentation of the skin of the lower extremities. NEUROLOGIC: He is awake and talking .Reflexes 1 + Skin is dry. Assessment and Plan Assessment and Plan IMPRESSION: 1. Hypercapnic respiratory failure. 2. Pulmonary edema and right pleural effusion. 3. Acute renal failure. 4. Diabetes mellitus. 5. Anemia. 6. History of human immunodeficiency virus disease. 7. Urinary tract infection and sepsis. 8. Probable pneumonia. Plan : 1. Continue nebs qid , duoneb 2. BIPAP 15/6, FIo2 30 % at HS and PRN daytime 3. Continue antibiotics per ID 4. CBC,BMP, in am 5. Cont Lasix IV daily 6. D/C Solumedrol 7. Symbicort 160/4.5 mcg , 2 puffs bid 8. Add Prednisone 30 mg daily and taper Zahida Brannon MD Nov 15, 2017 17:29
--- NOTE | 2017-11-15 18:50 | HHI.IDPN ---
Subjective Subjective Remarks remains on BIPAP 18/5, FiO2 35 % afebrile, WBC uis low cont to remian very lethargic 2/2 CO2 retention pCo2 in 80 s again Not cooperative with CT Renal fnx and hyperkalemia improved off bactrim Antibiotics azithro atovaquone Lines Line sites ok Past Medical History reviewed Allergies: Coded Allergies: benazepril (Unverified Allergy, Severe, SWELLING MOUTH ,TONGUE, 03/20/17) captopril (Unverified Allergy, Severe, SWELLING MOUTH ,TONGUE, 03/20/17) enalaprilat (Unverified Allergy, Severe, SWELLING MOUTH ,TONGUE, 03/20/17) fosinopril (Unverified Allergy, Severe, SWELLING MOUTH ,TONGUE, 03/20/17) lisinopril (Unverified Allergy, Severe, SWELLING MOUTH ,TONGUE, 03/20/17) quinapril (Unverified Allergy, Severe, SWELLING MOUTH ,TONGUE, 03/20/17) Objective . Vital Signs Date Time Temp Pulse Resp B/P (MAP) Pulse Ox O2 Delivery O2 Flow Rate FiO2 11/15/17 18:00 100 11/15/17 16:00 93 11/15/17 16:00 98.0 93 16 131/105 (114) 95 11/15/17 15:00 99 Bi-Pap 30 11/15/17 14:00 80 11/15/17 12:00 98.0 67 14 135/86 (102) 93 11/15/17 12:00 67 11/15/17 11:00 94 Bi-Pap 30 11/15/17 10:00 70 11/15/17 08:20 100 Nasal Cannula 2.00 11/15/17 08:00 98.6 94 17 154/106 (122) 99 11/15/17 08:00 94 11/15/17 07:00 96 Nasal Cannula 4.00 11/15/17 06:00 86 11/15/17 06:00 91 11/15/17 04:00 91 11/15/17 04:00 97.6 91 19 159/99 (119) 100 11/15/17 03:54 99 Nasal Cannula 3.00 11/15/17 03:00 Nasal Cannula 4.00 11/15/17 02:00 77 11/15/17 00:00 85 11/15/17 00:00 97.1 85 165/112 (129) 95 11/14/17 23:00 96 Bi-Pap 30 11/14/17 22:40 6 30 11/14/17 22:00 91 11/14/17 20:00 94 11/14/17 20:00 97.8 94 22 154/80 (104) 100 11/14/17 19:00 97 Bi-Pap 30 . Laboratory Tests Test 11/15/17 09:45 White Blood Count 3.8 TH/MM3 Red Blood Count 3.35 MIL/MM3 Hemoglobin 8.6 GM/DL Hematocrit 29.1 % Mean Corpuscular Volume 86.7 FL Mean Corpuscular Hemoglobin 25.7 PG Mean Corpuscular Hemoglobin Concent 29.7 % Red Cell Distribution Width 21.5 % Platelet Count 78 TH/MM3 Mean Platelet Volume 7.9 FL Neutrophils (%) (Auto) 89.8 % Lymphocytes (%) (Auto) 3.3 % Monocytes (%) (Auto) 6.1 % Eosinophils (%) (Auto) 0.0 % Basophils (%) (Auto) 0.8 % Neutrophils # (Auto) 3.4 TH/MM3 Lymphocytes # (Auto) 0.1 TH/MM3 Monocytes # (Auto) 0.2 TH/MM3 Eosinophils # (Auto) 0.0 TH/MM3 Basophils # (Auto) 0.0 TH/MM3 CBC Comment AUTO DIFF Differential Comment AUTO DIFF CONFIRMED Platelet Estimate LOW Platelet Morphology Comment NORMAL Tear Drop Cells 1+ Ovalocytes 1+ Laboratory Tests Test 11/15/17 09:45 Blood Urea Nitrogen 76 MG/DL Creatinine 2.55 MG/DL Random Glucose 229 MG/DL Calcium Level 8.1 MG/DL Sodium Level 142 MEQ/L Potassium Level 4.9 MEQ/L Chloride Level 102 MEQ/L Carbon Dioxide Level 33.4 MEQ/L Anion Gap 7 MEQ/L Estimat Glomerular Filtration Rate 32 ML/MIN Imaging Last Impressions Chest X-Ray 11/14/17 0600 Signed Impressions: CONCLUSION: Slight CHF Renal Ultrasound 10/26/17 0000 Signed Impressions: Service Date/Time: Thursday, October 26, 2017 20:06 - CONCLUSION: 1. There is some increased echogenicity of the renal parenchyma suggestive of chronic medical renal disease. 2. No evidence of hydronephrosis. 3. Small 1.1 cm cyst upper pole left kidney. Giuseppe Street MD Physical Exam CONSTITUTIONAL/GENERAL: This is an obese middle aged male patient, in no apparent distress. quite lethargic TUBES/LINES/DRAINS: SKIN: No jaundice, rashes, or lesions. HEENT: partial face BIPAP mask CARDIOVASCULAR: Regular rate and rhythm without murmurs, gallops, or rubs. No JVD. Peripheral pulses symmetric. + 2-3/6 harsh systolic murmur RESPIRATORY/CHEST: Symmetric, unlabored respirations. Clear to auscultation. Breath sounds markedly diominished bilaterally. GASTROINTESTINAL: Abdomen soft, non-tender, nondistended. No hepato-splenomegaly , or palpable masses. No guarding. Bowel sounds present. GENITOURINARY: Without palpable bladder distension. Wang catheter in place with cloudy urine MUSCULOSKELETAL: Extremities without clubbing, cyanosis, Non pitting chronic appearing 3+ edema of RLE and 1+ LLE edema. No cellulitic changes No joint tenderness or effusion noted. No calf tenderness. No mottling or clubbing. 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 Persistent CO2 retention COmbination of COPD and CHF exacerbation BNP 1700+ Pt is critically ill and unstab;le today; agree with transfer to ICU Hyoperkalemia ? bactrim contriutng: better with withholding TS Rec's: cant do CT chest 2/2 lack of cooperation cont PCP and MAC profilaxis - will avoid bactrim - will cont Atovaquine vivian;l repeat CXR Follow cultures follow clinically If intubated will send all resp clx Pt needs to be set up with HIV provider and restarted on HAART upon dc; however if long stay is projected we will need to start in -house. Gabby Drew MD Nov 15, 2017 18:50
[2017-11-15] MEDS: FUROSEMIDE 40 MG/4 ML VIAL IV PUSH SCH (19:10)
[2017-11-15] MEDS: predniSONE 20 MG TAB PO SCH (20:52)
[2017-11-16] VITALS (15 sets, daily range): BP systolic 139–163; BP diastolic 83–100; PULSE 83–104; RESP 14–25; TEMP 97.6–98.7; O2SAT 95–100
[2017-11-16] MEDS: INSULIN NovoLIN REGULAR SUPPLEMENTAL SCALE SQ SCH ×5 (04:00→20:59)
[2017-11-16] MEDS: CHLORHEXIDINE GLUCONATE 2 % 1 PACK (2 CLOTHS) TOP SCH (04:00)
--- NOTE | 2017-11-16 04:26 | RADRPT ---
EXAM DATE: 11/16/2017 4:22 AM EDT AGE/SEX: 56 years / Male INDICATIONS: Shortness of breath, possible pulmonary disease. CLINICAL DATA: This is the patient's subsequent encounter. Patient reports that signs and symptoms h ave been present for 1 week and indicates a pain score of Nonresponsive. MEDICAL/SURGICAL HISTORY: Diabetes mellitus type II. Cardiovascular disease. Pacemaker. COMPARISON: [facility] [place] S[place] AP, 11/14/2017. . FINDINGS: There is a pacing device seen over the left lateral lower chest. The cardiac silhouette is enlarged. There is increased density at the bases being worse on the right. The mid upper lungs are clear. Ther e is some lateral peaking of the right hemidiaphragm which can be seen with a subpulmonic effusion. CONCLUSION: Cardiomegaly. Bibasilar areas of atelectasis or consolidation being worse on the right. Some of the increased density at the bases may be related to effusions. Electronically signed by: Daniel Sifuentes MD 11/16/2017 4:25 AM EDT
[2017-11-16] MEDS: hydrALAZINE HCL 25 MG TAB PO SCH ×3 (05:31→20:58)
[2017-11-16] MEDS: FAMOTIDINE 20 MG TAB PO SCH ×2 (09:22→20:58)
[2017-11-16] MEDS: QUEtiapine FUMARATE 25 MG TAB PO SCH ×2 (09:22→12:00)
[2017-11-16] MEDS: FUROSEMIDE 100 MG/10 ML VIAL IV PUSH SCH (09:22)
[2017-11-16] MEDS: CARVEDILOL 12.5 MG TAB PO SCH ×2 (09:22→20:58)
[2017-11-16] MEDS: predniSONE 20 MG TAB PO SCH ×2 (09:22→20:58)
[2017-11-16] MEDS: amLODIPine BESYLATE 5 MG TAB PO SCH (09:22)
[2017-11-16] MEDS: ATOVAQUONE SUSP 750 MG/5 ML UDC PO SCH (09:22)
[2017-11-16] MEDS: SODIUM CHLORIDE 0.9% FLUSH 10 ML FLUSH IV FLUSH SCH ×2 (09:23→21:00)
[2017-11-16] MEDS: BUDESONIDE-FORMOTEROL 160/4.5 MCG INHALER INH SCH ×2 (09:23→20:59)
--- NOTE | 2017-11-16 09:52 | HHI.CCPN ---
Subjective Remarks/Hospital Course 10/26: This is a 56-year-old male who presents to the emergency department for altered mental status and not feeling well. The patient is quite altered and cannot provide any reliable history, and is only mumbling incoherently. He is protecting his airway and on room air, but cannot provide any additional information. Per the emergency department reports and [facility] reports, he has a history of hepatitis B, hepatitis C, COPD, chronic kidney disease of unknown stage, hypertension, CHF. In the emergency department he was found to have a creatinine of 5.08, BUN 65, potassium 7.3, sodium 135. He is afebrile with a normal white count. He is anemic with a hemoglobin of 9.2. Past visits would suggest his baseline creatinine to be between 2.3 and 3.09. He does have a urinalysis which is significant for pyuria with proteinuria and a large amount of bacteria suggestive of a urinary tract infection. On-call diet clerk was contacted due to the hyperkalemia and recommended medical management including insulin, D50, Kayexalate, bicarbonate and serial electrolyte's and recommended against emergent dialysis at this time. No additional information is available from the patient. The patient has been in the ICU for acute renal failure with life-threatening electrolyte abnormalities. Review systems is unobtainable due to his clinical condition. The remainder of the history is obtained from review of the medical record. 10/27: Patient seen earlier this a.m., remains lethargic but arousable with periods of agitation. Hemodialysis catheter was placed emergently at bedside and nephrology was consulted for dialysis. Patient is arousable, mumbles words , knows his name but he is not able to provide any history. Urine output is minimal. No bowel movement yet post Kayexalate. ROS: -Unobtainable due to patient's mental status. 10/28 Patient s/p emergent HD yesterday for hyperkalemia K 5.2 this morning from 7.3 on arrival. On BIPAP 18/5 with 30 %FIO2. On Precedex drip for agitation. 10/29 No events overnight. Off Precedex drip. Remains on BIPAP . Afebrile. Awake and alert. s/p HD yesterday with removal 3L. 10/30 Patient had 6 runs nonsustained Vtach ( asymptomatic) For HD today. 10/31 No events overnight, patient is lying in bed in NAD. Afebrile. 11/04: Critical care he consulted by Dr. Sauceda for worsening respiratory status. ABG done on the floor revealed PCO2 in the 70s with respiratory distress. Patient was transferred to the ICU and placed on BiPAP with full facemask. I evaluated the patient shortly following his arrival to the ICU. At that time he was drowsy, easily arousable, on BiPAP with full facemask. He was also noted to be hyperkalemic with a potassium of 5.7 for which I initiated treatment with glucose/insulin/bicarb/Kayexalate. I spoke with Dr. Ga who was there to evaluate patient as well. Awaiting ABG on BiPAP. Subjective: 11/05 Bipap titrated up to 20/5 due to hypercapnia on morning ABG with pH 7.23/ PaCO2 of 74/PaO2 of 92 on 15/5 and 30%. He is alert and interactive currently. He request something for anxiety because he states he is quite claustrophobic with BiPAP mask in place. Specifically he request morphine and Ativan. He is orthopneic and cannot comply with CT scan ordered per infectious disease. 11/06: On BiPAP. Very hungry and wants his diet changed. 11/11: Critical care reconsulted for lethargy and borderline respiratory status with possible need for intubation. When I evaluated patient he was drowsy to arousable on BiPAP with full facemask. He had received dose of Ativan and morphine last night. 11/12: Drowsy, easily arousable. Tolerating p.o. diet. On as needed BiPAP. 11/13: Awake and alert. On BiPAP overnight. Tolerating nasal cannula during daytime. Tolerating p.o. diet. Potassium improved with Kayexalate yesterday. 11/14: Drowsy, easily arousable. On BiPAP with full facemask. Tolerating p.o. diet. 11/15: Drowsy, easily arousable. On BiPAP with full facemask. Tolerating p.o. diet. 11/16: Awake and alert, on nasal cannula. Tolerating p.o. diet. States that he stays up all night hence he is drowsy during the day. Objective Vital Signs Date Time Temp Pulse Resp B/P (MAP) Pulse Ox O2 Delivery O2 Flow Rate FiO2 11/16/17 06:00 103 11/16/17 04:00 97.9 25 150/98 (115) 98 11/16/17 03:00 Bi-Pap 30 11/15/17 08:20 2.00 Intake and Output 11/16/17 11/16/17 11/17/17 08:00 16:00 00:00 Intake Total 500 ml Output Total 2000 ml Balance -1500 ml Result Diagram: 11/15/17 0945 11/15/17 0945 Imaging Last Impressions Chest X-Ray 11/10/17 0000 Signed Impressions: CONCLUSION: 1. Mild improving bibasilar infiltrates. 2. Stable prominent cardiomegaly. 3. Pulmonary venous congestion. Renal Ultrasound 10/26/17 0000 Signed Impressions: Service Date/Time: Thursday, October 26, 2017 20:06 - CONCLUSION: 1. There is some increased echogenicity of the renal parenchyma suggestive of chronic medical renal disease. 2. No evidence of hydronephrosis. 3. Small 1.1 cm cyst upper pole left kidney. Giuseppe Street MD Procedures 10/27/17 right femoral Vas-Cath placement Objective Remarks GENERAL: Middle-aged gentleman laying in bed, on nasal cannula HEENT: Normocephalic. Atraumatic. Pupils are equal and reactive, sclerae are anicteric. NECK: Trachea is midline. There is no JVD CHEST: On BiPAP, diminished breath sounds bilaterally, no wheeze. CARDIOVASCULAR: Regular S1 and S2. No murmurs appreciated. ABDOMEN: Soft, nontender, nondistended. No guarding. Bowel sounds are present. No hepatomegaly or splenomegaly appreciated MUSCULOSKELETAL: Chronic nonpitting edema, 3+ down the length of the right leg. Left lower extremity is about 1+ edema. NEUROLOGICAL: Awake alert oriented 3, following commands. Moving both upper extremities. A/P Assessment and Plan Plan by systems: Neurologic: Acute metabolic encephalopathy Uremic encephalopathy History of illicit substance use Monitor neuro status Avoid long-acting sedatives/narcotics UDS + Opiates on admission Respiratory: Acute hypercapnic respiratory failure COPD Continue BiPAP as needed. Nasal cannula as tolerated. Bronchodilators, continue solumederol 40mg Q8, Symbicort 160/4.[address] chest has been ordered per infectious disease but he is orthopneic and unable to obtain at this time CO2 retention noted. Continue BiPAP as needed. Cardiovascular: Chronic systolic heart failure Hypertension Pulmonary hypertension Coreg 6.25mg BID, add Hydralazine 25mg Q8 Monitor HR and BP keep MAP>65mmHg Echo showed EF 20%, mod-severe pulm HTN PAP 65mmHg Renal: Acute kidney injury superimposed on chronic renal insufficiency, unknown stage - likely secondary to urinary tract infection Urinary tract infection Hyperkalemia Monitor renal function, I/O's, avoid nephrotoxins Off hemodialysis after first few sessions per Dr. Ga. Renal- Dr. Ga Renal US: There is increased echogenicity of the renal parenchyma suggestive of chronic medical renal disease. No evidence of hydronephrosis. Small 1.1 cm cyst upper pole left kidney. Kayexalate for hyperkalemia. Received glucose, insulin, calcium. On bicarb drip per renal. FEN/GI: PO diet as tolerated On Pepcid 10mg IV Q12 Heme/ID: Anemia, unknown cause, likely secondary to chronic disease Urinary tract infection, HIV Low CD4 (14) Monitor CBC urine culture : ESBL Kleb Continue Abx per ID. On PCP and MAC prophylaxis per ID. avicaz, azithro, atovaquone Endocrine: SSI with accuchecks Prophylaxis: GI Prophylaxis Pepcid DVT Prophylaxis -- SCDs Subcu heparin Lines: Peripheral IVs We will consult and transfer to hospitalist service for further medical management. Critical care signing off, please reconsult as needed. Will transfer patient out of ICU Jethro Matthew MD Nov 16, 2017 09:52
[2017-11-16] MEDS: HEPARIN SODIUM - SQ 10,000 UNITS/ML VIAL SQ SCH ×2 (10:30→22:30)
--- NOTE | 2017-11-16 11:03 | HHI.NPPN ---
Subjective General Problems: Anemia, Edema, Hypertension Renal Failure: Stage IV History of Present Illness 56-year-old male with a past medical history of hypertension, history of HIV, chronic lymphedema of the legs, diabetes mellitus, sleep apnea, ischemic heart disease, was brought to the hospital with altered mental status and not feeling well. I was called to see the patient because of elevated BUN and creatinine and high potassium. The patient has known history of chronic kidney disease and patient was seen by me when he was here in March last year. At that time, he had creatinine in the range of 2.3-3.0 and he was discharged with a creatinine of 2.5 and now he came with a creatinine of 5.0 and also potassium of 7.3. Additional Remarks Not on BIPAP. He reports that he is doing better. Review of Systems Respiratory Lungs: SOB Cardiovascular Cardiac Remarks denies any Chest pain Gastrointestinal GI Remarks denies any abdominal pain Objective Data Data Vital Signs Date Time Temp Pulse Resp B/P (MAP) Pulse Ox O2 Delivery O2 Flow Rate FiO2 11/16/17 10:07 99 35 11/16/17 07:00 98 Nasal Cannula 4.00 11/16/17 06:00 103 11/16/17 04:00 97.9 88 25 150/98 (115) 98 11/16/17 04:00 88 11/16/17 03:00 98 Bi-Pap 30 11/16/17 02:00 91 11/16/17 00:00 100 11/16/17 00:00 98.1 100 20 163/100 (121) 98 11/15/17 23:00 100 Bi-Pap 30 11/15/17 22:00 99 11/15/17 20:35 90 30 11/15/17 20:35 90 BiPAP 30 11/15/17 20:00 98.5 97 15 129/89 (102) 97 11/15/17 20:00 97 11/15/17 19:00 97 Bi-Pap 30 11/15/17 18:00 100 11/15/17 16:00 93 11/15/17 16:00 98.0 93 16 131/105 (114) 95 11/15/17 15:00 99 Bi-Pap 30 11/15/17 14:00 80 11/15/17 12:00 98.0 67 14 135/86 (102) 93 11/15/17 12:00 67 -: 11/15/17 0945 11/15/17 0945 Physical Exam General Appearance: No Acute Distress Eyes Eye Exam: Pupils Equal Throat Throat Exam: Oral Mucosa Murdo & Moist Pulmonary Resp Exam: Rhonchi, Decreased Bases, Diminished Breath Sounds Cardiology CV Exam: Regular Gastrointestinal/Abdomen GI Exam: Soft, Non-Tender, Bowel Sounds Present, Distended Integumentary Skin Exam: Clear, Warm Extremeties Extremities Exam: Pitting Edema, Dependent Edema Neurologic Neuro Exam: Alert, Awake, Oriented, Obtunded Psychiatric Psych Exam: Appropriate Responses Assessment/Plan Assessment Summary: Anemia of CKD, CKD Stage V Electrolyte Assessment: Hyperkalemia Problem List: (1) DM (diabetes mellitus) ICD Codes: E11.9 - DM (diabetes mellitus) Status: Chronic (2) Chronic systolic CHF (congestive heart failure) ICD Codes: I50.22 - Chronic systolic CHF (congestive heart failure) Status: Chronic (3) Hyperkalemia ICD Codes: E87.5 - Hyperkalemia Status: Acute (4) Hypertension ICD Codes: I10 - Hypertension Status: Chronic (5) COPD exacerbation ICD Codes: J44.1 - COPD exacerbation Status: Acute (6) Respiratory distress ICD Codes: R06.00 - Respiratory distress Status: Acute (7) HIV (human immunodeficiency virus infection) ICD Codes: Z21 - HIV (human immunodeficiency virus infection) Status: Chronic (8) PNA (pneumonia) ICD Codes: J18.9 - PNA (pneumonia) Status: Acute (9) Hepatitis C ICD Codes: B19.20 - Hepatitis C Status: Chronic (10) Chronic kidney disease, stage 4 (severe) ICD Codes: N18.4 - Chronic kidney disease, stage 4 (severe) Plan No new labs today. Renal function had improved as of yesterday. Continue supportive care. Avoid nephrotoxic agents. Rico Leon MD Nov 16, 2017 11:03
--- NOTE | 2017-11-16 13:48 | HHI.PR ---
Subjective Remarks He is on BIPAP and FIO2 30 %. Was on N/C last PM. Remains SOB. Seems calmer today. Objective Vital Signs Date Time Temp Pulse Resp B/P (MAP) Pulse Ox O2 Delivery O2 Flow Rate FiO2 11/16/17 10:07 99 35 11/16/17 08:00 104 11/16/17 08:00 98.1 98 20 160/100 (120) 97 11/16/17 07:00 98 Nasal Cannula 4.00 11/16/17 06:00 103 11/16/17 04:00 97.9 88 25 150/98 (115) 98 11/16/17 04:00 88 11/16/17 03:00 98 Bi-Pap 30 11/16/17 02:00 91 11/16/17 00:00 100 11/16/17 00:00 98.1 100 20 163/100 (121) 98 11/15/17 23:00 100 Bi-Pap 30 11/15/17 22:00 99 11/15/17 20:35 90 30 11/15/17 20:35 90 BiPAP 30 11/15/17 20:00 98.5 97 15 129/89 (102) 97 11/15/17 20:00 97 11/15/17 19:00 97 Bi-Pap 30 11/15/17 18:00 100 11/15/17 16:00 93 11/15/17 16:00 98.0 93 16 131/105 (114) 95 11/15/17 15:00 99 Bi-Pap 30 11/15/17 14:00 80 I/O 11/15/17 11/15/17 11/15/17 11/16/17 11/16/17 11/16/17 07:00 15:00 23:00 07:00 15:00 23:00 Intake Total 450 ml 60 ml 500 ml Output Total 2000 ml Balance 450 ml 60 ml -1500 ml Intake Oral 450 ml 60 ml 500 ml Output Urine Total 2000 ml # Voids 3 4 # Bowel Movements 2 0 1 Result Diagram: 11/15/17 0945 11/15/17 0945 Objective Remarks GENERAL: This is a middle aged, obese male who is having 2+ leg edema with induration of the skin of the lower extremities. HEENT: Head is normocephalic. Pupils are reactive. Sclerae were clear. Ears no inflammation. NECK: Supple, no bruits or thyroid enlargement or lymphadenopathy. CHEST: Decreased breath sounds at the bases with wheezes over both lung gomez, and Occ basal Crackles. HEART: Sounds are irregular S1 and S2. No murmur. No S3. ABDOMEN: Soft, protuberant and Bowel sounds are active. EXTREMITIES: Decreased pulses. Lymphedema with pigmentation of the skin of the lower extremities. NEUROLOGIC: He is awake and talking .Reflexes 1 + Skin is dry. Assessment and Plan Assessment and Plan IMPRESSION: 1. Hypercapnic respiratory failure. 2. Pulmonary edema and right pleural effusion. 3. Acute renal failure. 4. Diabetes mellitus. 5. Anemia. 6. History of human immunodeficiency virus disease. 7. Urinary tract infection and sepsis. 8. Probable pneumonia. Plan : 1. Continue nebs qid , duoneb 2. BIPAP 15/6, FIo2 35 % at HS and PRN daytime 3. Continue antibiotics per ID 4. CBC,BMP, in am 5. Cont Lasix IV daily 6. O2 4 L N/C daytime 7. Symbicort 160/4.5 mcg , 2 puffs bid 8. Prednisone 30 mg daily and taper Zahida Brannon MD Nov 16, 2017 13:48
[2017-11-16] MEDS: FUROSEMIDE 40 MG/4 ML VIAL IV PUSH SCH (18:50)
[2017-11-16] MEDS: RESP: ALBUTEROL 2.5 MG/IPRATROPIUM 0.5 MG NEB (PRN) INH (23:25)
[2017-11-17] VITALS (17 sets, daily range): BP systolic 132–154; BP diastolic 70–99; PULSE 69–98; RESP 16–19; TEMP 97.4–98.4; O2SAT 96–100
[2017-11-17] MEDS: INSULIN NovoLIN REGULAR SUPPLEMENTAL SCALE SQ SCH ×3 (01:07→08:43)
[2017-11-17] MEDS: RESP: ALBUTEROL 2.5 MG/IPRATROPIUM 0.5 MG NEB (PRN) INH (03:45)
[2017-11-17] MEDS: CHLORHEXIDINE GLUCONATE 2 % 1 PACK (2 CLOTHS) TOP SCH (04:00)
[2017-11-17] MEDS: hydrALAZINE HCL 25 MG TAB PO SCH ×3 (06:09→20:50)
--- NOTE | 2017-11-17 07:49 | HHI.PR ---
Subjective Remarks Patient seen and examined for follow-up of respiratory failure, acute renal failure, and HIV/AIDS. AFVSS. Maintaining O2 saturations on nasal cannula and BiPAP at night. Patient reports his breathing has remarkably improved and he is able to move around a little bit more than what he was able to do just a few days ago. Denies chest pain, abdominal pain, nausea, or vomiting. Tolerating PO. Objective Vital Signs Date Time Temp Pulse Resp B/P (MAP) Pulse Ox O2 Delivery O2 Flow Rate FiO2 11/17/17 06:05 99 Nasal Cannula 4.00 11/17/17 06:00 77 11/17/17 04:00 83 11/17/17 04:00 97.4 83 19 154/95 (114) 100 11/17/17 03:46 99 35 11/17/17 03:00 100 Bi-Pap 35 11/17/17 02:00 75 11/17/17 00:00 79 11/17/17 00:00 98.4 79 17 140/85 (103) 97 11/16/17 23:25 97 Bi-Pap 35 11/16/17 23:25 95 35 11/16/17 23:00 98 Nasal Cannula 4.00 11/16/17 22:00 83 11/16/17 21:21 100 Nasal Cannula 6.00 11/16/17 20:00 98.7 93 14 139/88 (105) 98 11/16/17 20:00 93 11/16/17 19:00 98 Nasal Cannula 4.00 11/16/17 18:00 95 11/16/17 16:00 97.6 96 20 145/89 (107) 97 11/16/17 16:00 98 11/16/17 15:00 98 Nasal Cannula 4.00 11/16/17 14:00 96 11/16/17 12:00 97.9 97 22 139/83 (101) 98 11/16/17 12:00 95 11/16/17 11:00 98 Nasal Cannula 4.00 11/16/17 10:07 99 35 11/16/17 10:00 96 11/16/17 08:00 104 11/16/17 08:00 98.1 98 20 160/100 (120) 97 I/O 11/16/17 11/16/17 11/16/17 11/17/17 11/17/173/18 07:00 15:00 23:00 07:00 15:00 23:00 Intake Total 500 ml 480 ml Output Total 2000 ml 2200 ml 700 ml Balance -1500 ml -2200 ml -220 ml Intake Oral 500 ml 480 ml Output Urine Total 2000 ml 2200 ml 700 ml # Bowel Movements 1 1 Result Diagram: 11/15/17 0945 11/15/17 0945 Imaging Chest X-Ray 11/16/17 0600 Signed Impressions: CONCLUSION: Cardiomegaly. Bibasilar areas of atelectasis or consolidation being worse on the right. Some of the increased density at the bases may be related to effusions. Renal Ultrasound 10/26/17 0000 Signed Impressions: Service Date/Time: Thursday, October 26, 2017 20:06 - CONCLUSION: 1. There is some increased echogenicity of the renal parenchyma suggestive of chronic medical renal disease. 2. No evidence of hydronephrosis. 3. Small 1.1 cm cyst upper pole left kidney. Giuseppe Street MD Objective Remarks GENERAL: Pleasant -Citizen Of [place] male resting in bed in [facility]. SKIN: Warm and dry. HEENT: AT/NC. Pupils equal and round. No scleral icterus. Nasal cannula in place. MMM. NECK: Supple no tender LAD or JVD. HEART: RRR no m/r/g. LUNGS: Diminished breath sounds with mild bibasilar crackles. No wheezing. ABDOMEN: +BS, soft, NT, ND. Edematous scrotum. EXTREMITIES: Chronic BLE lymphedema, R>>L. Verrucous lesion L leg. NEURO: Awake and alert. A/P Problem List: (1) Acute kidney injury ICD Code: N17.9 - Acute kidney failure, unspecified Status: Acute (2) UTI (lower urinary tract infection) ICD Code: N39.0 - UTI (lower urinary tract infection) Status: Acute (3) PNA (pneumonia) ICD Code: J18.9 - PNA (pneumonia) Status: Acute (4) HIV (human immunodeficiency virus infection) ICD Code: Z21 - HIV (human immunodeficiency virus infection) Status: Chronic (5) Respiratory distress ICD Code: R06.00 - Respiratory distress Status: Acute (6) Chronic systolic CHF (congestive heart failure) ICD Code: I50.22 - Chronic systolic CHF (congestive heart failure) Status: Chronic (7) DM (diabetes mellitus) ICD Code: E11.9 - DM (diabetes mellitus) Status: Chronic (8) Chronic acquired lymphedema ICD Code: I89.0 - Chronic acquired lymphedema Status: Chronic (9) Hypertension ICD Code: I10 - Hypertension Status: Chronic Assessment and Plan 56 YOAAM with numerous medical problems including HIV, DM, COPD, CKD, HTN, and dilated cardiomyopathy initially admitted 10/26 for respiratory distress and AMS found to be in acute renal failure with critical hyperkalemia. Nephrology has been consulted to managed his renal failure; cardiology to manage his nonischemic dilated cardiomyopathy and wide complex tachyarrhythmias; ID to manage ESBL in urine as well as HIV/AIDS; and pulmonology to assist in management of worsening respiratory status with hypercapnia and hypoxemia. He has been transferred back and forth from the hospitalist service to critical care several times during the course of his hospitalization. He has been awake and alert and on nasal cannula so care has been transferred again to the hospitalist service. 1. Acute respiratory failure, COPD, CO2 retention - Improved and on nasal cannula - BiPAP as needed - Supplemental O2 PRN - Continue bronchodilators, Symbicort - Continue Prednisone - Repeat CXR showing bibasilar areas of atelectasis or consolidation, worse on the right - Pulmonology following, appreciate reccs 2. Acute metabolic encephalopathy - Secondary to renal failure - Mental status is improving 3. Cardiomyopathy - Echocardiogram showed ejection fraction of 20% - AICD in place - Continue Coreg - Appreciate cardiology recommendations 4. Acute kidney injury superimposed on chronic kidney disease - Appreciate nephrology recommendations - Required short-term dialysis - Creatinine is improving - Monitor renal function, I/O - Avoid nephrotoxins - Continue supportive care 5. Anemia, likely secondary to chronic disease and acute illness - H&H stable - Continue to monitor 6. UTI - Urine culture growing ESBL positive Klebsiella, s/p treatment with Avycaz - Appreciate infectious disease recommendations 7. HIV/AIDS - Low CD4 count of 14 - ID following - On PCP and MAC prophylaxis - Avoiding Bactrim secondary to hypokalemia therefore on Atovaquine 8. HTN - Continue Hydralazine and Carvedilol - Clonidine PRN 9. DM - Check A1c - Start Levemir 5 units BID and adjust based on glucose readings - Continue SSI and Accuchecks per protocol 10. Agitation - Continue Seroquel BID 11. Hepatitis B - LFTs WNL - Avoid hepatotoxins DVT prophylaxis: SCDs, heparin Shruti Stroud MD Nov 17, 2017 07:49
[2017-11-17] MEDS: CARVEDILOL 12.5 MG TAB PO SCH ×2 (08:41→20:50)
[2017-11-17] MEDS: amLODIPine BESYLATE 5 MG TAB PO SCH (08:41)
[2017-11-17] MEDS: FAMOTIDINE 20 MG TAB PO SCH ×2 (08:41→20:50)
[2017-11-17] MEDS: QUEtiapine FUMARATE 25 MG TAB PO SCH ×2 (08:41→12:16)
[2017-11-17] MEDS: predniSONE 20 MG TAB PO SCH ×2 (08:41→20:50)
[2017-11-17] MEDS: INSULIN DETEMIR 100 UNITS/ML VIAL SQ SCH ×2 (08:42→20:51)
[2017-11-17] MEDS: SODIUM CHLORIDE 0.9% FLUSH 10 ML FLUSH IV FLUSH SCH ×2 (08:42→20:50)
[2017-11-17] MEDS: FUROSEMIDE 100 MG/10 ML VIAL IV PUSH SCH (08:42)
[2017-11-17] MEDS: ATOVAQUONE SUSP 750 MG/5 ML UDC PO SCH (09:00)
[2017-11-17] MEDS: BUDESONIDE-FORMOTEROL 160/4.5 MCG INHALER INH SCH ×2 (09:00→20:52)
[2017-11-17] MEDS: HEPARIN SODIUM - SQ 10,000 UNITS/ML VIAL SQ SCH ×2 (10:30→20:51)
[2017-11-17] MEDS: INSULIN ASPART SUPPLEMENTAL SCALE SQ SCH ×3 (12:15→20:51)
--- NOTE | 2017-11-17 13:39 | HHI.PR ---
Subjective Remarks He was on BIPAP last night and FIO2 30 %. Was on N/C since this am.Drowsy. Remains SOB. Objective Vital Signs Date Time Temp Pulse Resp B/P (MAP) Pulse Ox O2 Delivery O2 Flow Rate FiO2 11/17/17 12:00 69 11/17/17 12:00 98.0 69 16 132/78 (96) 99 11/17/17 11:00 99 Nasal Cannula 3.00 Bi-Pap 11/17/17 10:00 77 11/17/17 09:41 100 Nasal Cannula 3.00 Bi-Pap 11/17/17 08:15 100 Nasal Cannula 3.00 11/17/17 08:00 97.9 82 18 136/99 (111) 99 11/17/17 08:00 74 11/17/17 06:05 99 Nasal Cannula 4.00 11/17/17 06:00 77 11/17/17 04:00 83 11/17/17 04:00 97.4 83 19 154/95 (114) 100 11/17/17 03:46 99 35 11/17/17 03:00 100 Bi-Pap 35 11/17/17 02:00 75 11/17/17 00:00 79 11/17/17 00:00 98.4 79 17 140/85 (103) 97 11/16/17 23:25 97 Bi-Pap 35 11/16/17 23:25 95 35 11/16/17 23:00 98 Nasal Cannula 4.00 11/16/17 22:00 83 11/16/17 21:21 100 Nasal Cannula 6.00 11/16/17 20:00 98.7 93 14 139/88 (105) 98 11/16/17 20:00 93 11/16/17 19:00 98 Nasal Cannula 4.00 11/16/17 18:00 95 11/16/17 16:00 97.6 96 20 145/89 (107) 97 11/16/17 16:00 98 11/16/17 15:00 98 Nasal Cannula 4.00 11/16/17 14:00 96 I/O 11/16/17 11/16/17 11/16/17 11/17/17 11/17/17 11/17/17 07:00 15:00 23:00 07:00 15:00 23:00 Intake Total 500 ml 480 ml Output Total 2000 ml 2200 ml 700 ml Balance -1500 ml -2200 ml -220 ml Intake Oral 500 ml 480 ml Output Urine Total 2000 ml 2200 ml 700 ml # Bowel Movements 1 1 Result Diagram: 11/15/1745 11/15/1745 Objective Remarks GENERAL: This is a middle aged, obese male who is having 2 + leg edema with induration of the skin of the lower extremities. HEENT: Head is normocephalic. Pupils are reactive. Sclerae were clear. Ears no inflammation. NECK: Supple, no bruits or thyroid enlargement or lymphadenopathy. CHEST: Decreased breath sounds at the bases with wheezes over both lung gomez, and basal Crackles. HEART: Sounds are irregular S1 and S2. No murmur. No S3. ABDOMEN: Soft, protuberant and Bowel sounds are active. EXTREMITIES: Lymphedema with pigmentation of the skin of the lower extremities. NEUROLOGIC: He is awake and talking .Reflexes 1 + Skin is dry. Assessment and Plan Assessment and Plan IMPRESSION: 1. Hypercapnic respiratory failure. 2. Pulmonary edema and right pleural effusion. 3. Acute renal failure. 4. Diabetes mellitus. 5. Anemia. 6. History of human immunodeficiency virus disease. 7. Urinary tract infection and sepsis. 8. Probable pneumonia. Plan : 1. Continue nebs qid , duoneb 2. BIPAP 15/6, FIo2 35 % at HS and PRN daytime 3. Continue antibiotics per ID 4. CBC,BMP, in am 5. Cont Lasix 80 mg IV daily 6. O2 3 L N/C daytime 7. Symbicort 160/4.5 mcg , 2 puffs bid 8. Prednisone 20 mg BID Zahida Brannon MD Nov 17, 2017 13:39
[2017-11-17] MEDS: FUROSEMIDE 40 MG/4 ML VIAL IV PUSH SCH (17:27)
[2017-11-18] VITALS (14 sets, daily range): BP systolic 142–152; BP diastolic 86–102; PULSE 79–101; RESP 16–22; TEMP 97.3–98.3; O2SAT 96–100
[2017-11-18] MEDS: RESP: ALBUTEROL 2.5 MG/IPRATROPIUM 0.5 MG NEB (PRN) INH ×2 (01:22→21:59)
[2017-11-18] MEDS: CHLORHEXIDINE GLUCONATE 2 % 1 PACK (2 CLOTHS) TOP SCH ×2 (04:00→21:03)
[2017-11-18] MEDS: hydrALAZINE HCL 25 MG TAB PO SCH ×3 (05:53→20:54)
[2017-11-18] MEDS: SODIUM CHLORIDE 0.9% FLUSH 10 ML FLUSH IV FLUSH SCH ×2 (08:58→20:50)
[2017-11-18] MEDS: INSULIN ASPART SUPPLEMENTAL SCALE SQ SCH ×4 (08:58→20:50)
[2017-11-18] MEDS: BUDESONIDE-FORMOTEROL 160/4.5 MCG INHALER INH SCH ×2 (08:58→20:48)
[2017-11-18] MEDS: AZITHROMYCIN 600 MG TAB PO SCH (09:00)
[2017-11-18] MEDS: INSULIN DETEMIR 100 UNITS/ML VIAL SQ SCH ×2 (09:00→20:50)
[2017-11-18] MEDS: ATOVAQUONE SUSP 750 MG/5 ML UDC PO SCH (09:01)
[2017-11-18] MEDS: QUEtiapine FUMARATE 25 MG TAB PO SCH ×2 (09:01→13:16)
[2017-11-18] MEDS: amLODIPine BESYLATE 5 MG TAB PO SCH (09:01)
[2017-11-18] MEDS: predniSONE 20 MG TAB PO SCH ×2 (09:02→20:54)
[2017-11-18] MEDS: CARVEDILOL 12.5 MG TAB PO SCH ×2 (09:02→20:53)
[2017-11-18] MEDS: FAMOTIDINE 20 MG TAB PO SCH ×2 (09:02→20:53)
--- NOTE | 2017-11-18 09:38 | HHI.NPPN ---
Subjective General Problems: Anemia, Edema, Hypertension Renal Failure: Stage IV History of Present Illness 56-year-old male with a past medical history of hypertension, history of HIV, chronic lymphedema of the legs, diabetes mellitus, sleep apnea, ischemic heart disease, was brought to the hospital with altered mental status and not feeling well. I was called to see the patient because of elevated BUN and creatinine and high potassium. The patient has known history of chronic kidney disease and patient was seen by me when he was here in March last year. At that time, he had creatinine in the range of 2.3-3.0 and he was discharged with a creatinine of 2.5 and now he came with a creatinine of 5.0 and also potassium of 7.3. Additional Remarks Sitting up in bed just finished breakfast. Mild shortness of breath. Edema noted. Labs pending. (Sameera Rudd) Review of Systems Respiratory Lungs: SOB (Sameera Rudd) Cardiovascular Cardiac Remarks denies any Chest pain (Sameera Rudd) Gastrointestinal GI Remarks denies any abdominal pain (Sameera Rudd) Objective Data Data Vital Signs Date Time Temp Pulse Resp B/P (MAP) Pulse Ox O2 Delivery O2 Flow Rate FiO2 11/18/17 08:30 100 Nasal Cannula 3.00 11/18/17 06:00 89 11/18/17 04:00 97.6 83 22 146/102 (117) 98 11/18/17 04:00 83 11/18/17 03:00 97 Bi-Pap 35 11/18/17 02:00 79 11/18/17 01:20 99 35 11/18/17 00:00 98.2 89 16 142/88 (106) 99 11/18/17 00:00 89 11/17/17 23:00 99 Bi-Pap 35 11/17/17 22:00 85 11/17/17 21:39 98 35 11/17/17 20:40 98 Nasal Cannula 2.00 11/17/17 20:00 95 11/17/17 20:00 98.1 95 18 135/80 (98) 96 11/17/17 19:00 96 Nasal Cannula 4.00 11/17/17 18:00 98 11/17/17 16:00 96 11/17/17 16:00 97.8 96 18 137/70 (92) 98 11/17/17 15:00 98 Nasal Cannula 3.00 Bi-Pap 11/17/17 14:00 93 11/17/17 12:00 69 11/17/17 12:00 98.0 69 16 132/78 (96) 99 11/17/17 11:00 99 Nasal Cannula 3.00 Bi-Pap 11/17/17 10:00 77 11/17/17 09:41 100 Nasal Cannula 3.00 Bi-Pap (Sameera Rudd) -: 11/15/17 0945 11/15/17 0945 Physical Exam General Appearance: No Acute Distress (Sameera Rudd) Eyes Eye Exam: Pupils Equal (Sameera Rudd) Throat Throat Exam: Oral Mucosa [place] & Moist (Sameera Rudd) Pulmonary Resp Exam: Rhonchi, Decreased Bases, Diminished Breath Sounds (Sameera Rudd) Cardiology CV Exam: Regular (Sameera Rudd) Gastrointestinal/Abdomen GI Exam: Soft, Non-Tender, Bowel Sounds Present, Distended (Sameera Rudd) Integumentary Skin Exam: Clear, Warm (Sameera Rudd) Extremeties Extremities Exam: Pitting Edema, Dependent Edema Extremeties Remarks lymphedema right leg (Sameera Rudd) Neurologic Neuro Exam: Alert, Awake, Oriented, Obtunded (Sameera Rudd) Psychiatric Psych Exam: Appropriate Responses (Sameera Rudd) Assessment/Plan Assessment Summary: Anemia of CKD, CKD Stage V Electrolyte Assessment: Hyperkalemia Problem List: (1) Chronic kidney disease, stage 4 (severe) ICD Codes: N18.4 - Chronic kidney disease, stage 4 (severe) Plan: Patient has been on dialysis last one was on 10/28 Vas-Cath was removed Continue lasix BID as patient has edema Urinary output 2.1L/24 hours Low potassium diet Labs pending for today. (2) DM (diabetes mellitus) ICD Codes: E11.9 - DM (diabetes mellitus) Status: Chronic (3) Chronic systolic CHF (congestive heart failure) ICD Codes: I50.22 - Chronic systolic CHF (congestive heart failure) Status: Chronic (4) Hyperkalemia ICD Codes: E87.5 - Hyperkalemia Status: Acute (5) Hypertension ICD Codes: I10 - Hypertension Status: Chronic (6) COPD exacerbation ICD Codes: J44.1 - COPD exacerbation Status: Acute (7) Respiratory distress ICD Codes: R06.00 - Respiratory distress Status: Acute (8) HIV (human immunodeficiency virus infection) ICD Codes: Z21 - HIV (human immunodeficiency virus infection) Status: Chronic (9) PNA (pneumonia) ICD Codes: J18.9 - PNA (pneumonia) Status: Acute (10) Hepatitis C ICD Codes: B19.20 - Hepatitis C Status: Chronic (Sameera Rudd) Problem List: (1) Chronic kidney disease, stage 4 (severe) ICD Codes: N18.4 - Chronic kidney disease, stage 4 (severe) Plan: Patient has been on dialysis last one was on 10/28 Vas-Cath was removed Continue lasix BID as patient has edema Urinary output 2.1L/24 hours Low potassium diet Labs pending for today. Patient seen and examined, agree with above. Creatinine slowly improving. (2) DM (diabetes mellitus) ICD Codes: E11.9 - DM (diabetes mellitus) Status: Chronic (3) Chronic systolic CHF (congestive heart failure) ICD Codes: I50.22 - Chronic systolic CHF (congestive heart failure) Status: Chronic (4) Hyperkalemia ICD Codes: E87.5 - Hyperkalemia Status: Acute (5) Hypertension ICD Codes: I10 - Hypertension Status: Chronic (6) COPD exacerbation ICD Codes: J44.1 - COPD exacerbation Status: Acute (7) Respiratory distress ICD Codes: R06.00 - Respiratory distress Status: Acute (8) HIV (human immunodeficiency virus infection) ICD Codes: Z21 - HIV (human immunodeficiency virus infection) Status: Chronic (9) PNA (pneumonia) ICD Codes: J18.9 - PNA (pneumonia) Status: Acute (10) Hepatitis C ICD Codes: B19.20 - Hepatitis C Status: Chronic (Millicent Ga MD) Sameera Rudd Nov 18, 2017 09:38 Millicent Ga MD Nov 19, 2017 00:37
[2017-11-18] MEDS: HEPARIN SODIUM - SQ 10,000 UNITS/ML VIAL SQ SCH ×2 (10:30→20:53)
[2017-11-18] MEDS: FUROSEMIDE 100 MG/10 ML VIAL IV PUSH SCH (10:46)
--- NOTE | 2017-11-18 13:03 | HHI.PR ---
Subjective Remarks He was on BIPAP again last night and FIO2 30 %. Is on N/C since this am. Drowsy. Remains SOB. Objective Vital Signs Date Time Temp Pulse Resp B/P (MAP) Pulse Ox O2 Delivery O2 Flow Rate FiO2 11/18/17 08:30 100 Nasal Cannula 3.00 11/18/17 06:00 89 11/18/17 04:00 97.6 83 22 146/102 (117) 98 11/18/17 04:00 83 11/18/17 03:00 97 Bi-Pap 35 11/18/17 02:00 79 11/18/17 01:20 99 35 11/18/17 00:00 98.2 89 16 142/88 (106) 99 11/18/17 00:00 89 11/17/17 23:00 99 Bi-Pap 35 11/17/17 22:00 85 11/17/17 21:39 98 35 11/17/17 20:40 98 Nasal Cannula 2.00 11/17/17 20:00 95 11/17/17 20:00 98.1 95 18 135/80 (98) 96 11/17/17 19:00 96 Nasal Cannula 4.00 11/17/17 18:00 98 11/17/17 16:00 96 11/17/17 16:00 97.8 96 18 137/70 (92) 98 11/17/17 15:00 98 Nasal Cannula 3.00 Bi-Pap 11/17/17 14:00 93 I/O 11/17/17 11/17/17 11/17/17 11/18/17 11/18/17 11/18/17 07:00 15:00 23:00 07:00 15:00 23:00 Intake Total 480 ml 800 ml 480 ml Output Total 700 ml 1500 ml 650 ml Balance -220 ml -700 ml -170 ml Intake Oral 480 ml 800 ml 480 ml Output Urine Total 700 ml 1500 ml 650 ml # Bowel Movements 1 3 0 Result Diagram: 11/15/1745 11/15/17 0945 Objective Remarks GENERAL: This is a middle aged, obese male who is having 2 + leg edema with induration of the skin of the lower extremities. HEENT: Head is normocephalic. Pupils are reactive. Sclerae were clear. Ears no inflammation. NECK: Supple, no bruits or thyroid enlargement or lymphadenopathy. CHEST: Decreased breath sounds at the bases with wheezes over both lung gomez. HEART: Sounds are irregular S1 and S2. No murmur. No S3. ABDOMEN: Soft, protuberant and Bowel sounds are active. EXTREMITIES: Lymphedema with pigmentation of the skin of the lower extremities. NEUROLOGIC: He is awake and lethargic .Reflexes 1 + Skin is dry. Assessment and Plan Assessment and Plan IMPRESSION: 1. Hypercapnic respiratory failure. 2. Pulmonary edema and right pleural effusion. 3. Acute renal failure. 4. Diabetes mellitus. 5. Anemia. 6. History of human immunodeficiency virus disease. 7. Urinary tract infection and sepsis. 8. Probable pneumonia. Plan : 1. Continue nebs qid , duoneb 2. BIPAP 15/6, FIo2 30 % at HS and PRN daytime 3. Continue antibiotics per ID 4. CBC,BMP, in am 5. Cont Lasix 40 mg IV daily 6. O2 3 L N/C daytime 7. Symbicort 160/4.5 mcg , 2 puffs bid 8. Cont Prednisone 20 mg BID Zahida Brannon MD Nov 18, 2017 13:03
[2017-11-18 15:19] LABS: AUTOMATED NEUTROPHIL # 4.4 TH/MM3 (1.8-7.7); BASOPHIL # 0.1 TH/MM3 (0-0.2); BASOPHIL % 1.1 % (0.0-2.0); EOSINOPHIL % 0.4 % (0.0-4.0); HEMATOCRIT 31.1 % (39.0-51.0); HEMOGLOBIN 9.1 GM/DL (13.0-17.0); LYMPHOCYTE # 0.1 TH/MM3 (1.0-4.8); MEAN CELL VOLUME 87.6 FL (80.0-100.0); MEAN CORPUSCULAR HEMOGLOBIN 25.7 PG (27.0-34.0); MEAN PLATELET VOLUME 8.3 FL (7.0-11.0); MONO % 6.4 % (0.0-8.0); MONOCYTE # 0.3 TH/MM3 (0-0.9); NEUT % 89.1 % (16.0-70.0); PLATELET COUNT 77 TH/MM3 (150-450); RED BLOOD COUNT 3.55 MIL/MM3 (4.50-5.90); RED CELL DISTRIBUTION WIDTH 22.2 % (11.6-17.2)
[2017-11-18 15:25] LABS: MEAN CORPUSCULAR HGB CONC 29.3 % (32.0-36.0)
[2017-11-18 15:32] LABS: CALCIUM 7.6 MG/DL (8.5-10.1); CREATININE 2.49 MG/DL (0.60-1.30)
[2017-11-18 15:59] LABS: OVALOCYTES 1+ (NORMAL); SPHEROCYTES OCC (NORMAL)
[2017-11-18 16:00] LABS: STOMATOCYTES 1+ (NORMAL)
[2017-11-18] MEDS: FUROSEMIDE 40 MG/4 ML VIAL IV PUSH SCH (16:40)
--- NOTE | 2017-11-18 17:13 | HHI.IDPN ---
Subjective Subjective Remarks pt seen earlier today around 1200 pm He is on NC O2 frustrated yelling he is afebrile Antibiotics azithro atovaquone Lines Line sites ok Past Medical History reviewed Allergies: Coded Allergies: benazepril (Unverified Allergy, Severe, SWELLING MOUTH ,TONGUE, 03/20/17) captopril (Unverified Allergy, Severe, SWELLING MOUTH ,TONGUE, 03/20/17) enalaprilat (Unverified Allergy, Severe, SWELLING MOUTH ,TONGUE, 03/20/17) fosinopril (Unverified Allergy, Severe, SWELLING MOUTH ,TONGUE, 03/20/17) lisinopril (Unverified Allergy, Severe, SWELLING MOUTH ,TONGUE, 03/20/17) quinapril (Unverified Allergy, Severe, SWELLING MOUTH ,TONGUE, 03/20/17) Objective . Vital Signs Date Time Temp Pulse Resp B/P (MAP) Pulse Ox O2 Delivery O2 Flow Rate FiO2 11/18/17 08:30 100 Nasal Cannula 3.00 11/18/17 08:00 95 11/18/17 07:00 96 Nasal Cannula 4.00 11/18/17 06:00 89 11/18/17 04:00 97.6 83 22 146/102 (117) 98 11/18/17 04:00 83 11/18/17 03:00 97 Bi-Pap 35 11/18/17 02:00 79 11/18/17 01:20 99 35 11/18/17 00:00 98.2 89 16 142/88 (106) 99 11/18/17 00:00 89 11/17/17 23:00 99 Bi-Pap 35 11/17/17 22:00 85 11/17/17 21:39 98 35 11/17/17 20:40 98 Nasal Cannula 2.00 11/17/17 20:00 95 11/17/17 20:00 98.1 95 18 135/80 (98) 96 11/17/17 19:00 96 Nasal Cannula 4.00 11/17/17 18:00 98 . Laboratory Tests Test 11/18/17 15:03 White Blood Count 5.0 TH/MM3 Red Blood Count 3.55 MIL/MM3 Hemoglobin 9.1 GM/DL Hematocrit 31.1 % Mean Corpuscular Volume 87.6 FL Mean Corpuscular Hemoglobin 25.7 PG Mean Corpuscular Hemoglobin Concent 29.3 % Red Cell Distribution Width 22.2 % Platelet Count 77 TH/MM3 Mean Platelet Volume 8.3 FL Neutrophils (%) (Auto) 89.1 % Lymphocytes (%) (Auto) 3.0 % Monocytes (%) (Auto) 6.4 % Eosinophils (%) (Auto) 0.4 % Basophils (%) (Auto) 1.1 % Neutrophils # (Auto) 4.4 TH/MM3 Lymphocytes # (Auto) 0.1 TH/MM3 Monocytes # (Auto) 0.3 TH/MM3 Eosinophils # (Auto) 0.0 TH/MM3 Basophils # (Auto) 0.1 TH/MM3 CBC Comment AUTO DIFF Differential Comment AUTO DIFF CONFIRMED Platelet Estimate LOW Platelet Morphology Comment NORMAL Basophilic Stippling MOD Spherocytes OCC Ovalocytes 1+ Stomatocytes 1+ Laboratory Tests Test 11/17/17 14:43 11/18/17 15:03 Blood Urea Nitrogen 68 MG/DL Creatinine 2.49 MG/DL Random Glucose 342 MG/DL Calcium Level 7.6 MG/DL Magnesium Level 2.0 MG/DL Sodium Level 141 MEQ/L Potassium Level 4.7 MEQ/L Chloride Level 101 MEQ/L Carbon Dioxide Level 30.0 MEQ/L Anion Gap 10 MEQ/L Estimat Glomerular Filtration Rate 33 ML/MIN Imaging Last Impressions Chest X-Ray 11/16/17 0600 Signed Impressions: CONCLUSION: Cardiomegaly. Bibasilar areas of atelectasis or consolidation being worse on the right. Some of the increased density at the bases may be related to effusions. Renal Ultrasound 10/26/17 0000 Signed Impressions: Service Date/Time: Thursday, October 26, 2017 20:06 - CONCLUSION: 1. There is some increased echogenicity of the renal parenchyma suggestive of chronic medical renal disease. 2. No evidence of hydronephrosis. 3. Small 1.1 cm cyst upper pole left kidney. Giuseppe Street MD Physical Exam CONSTITUTIONAL/GENERAL: This is an obese middle aged male patient, in no apparent distress. quite lethargic TUBES/LINES/DRAINS: SKIN: No jaundice, rashes, or lesions. HEENT: partial face BIPAP mask CARDIOVASCULAR: Regular rate and rhythm without murmurs, gallops, or rubs. No JVD. Peripheral pulses symmetric. + 2-3/6 harsh systolic murmur RESPIRATORY/CHEST: Symmetric, unlabored respirations. Clear to auscultation. Breath sounds markedly diominished bilaterally. GASTROINTESTINAL: Abdomen soft, non-tender, nondistended. No hepato-splenomegaly , or palpable masses. No guarding. Bowel sounds present. GENITOURINARY: Without palpable bladder distension. Marked scrotal edema MUSCULOSKELETAL: Extremities without clubbing, cyanosis, Non pitting chronic appearing 3+ edema of RLE and 1+ LLE edema. No cellulitic changes No joint tenderness or effusion noted. No calf tenderness. No mottling or clubbing. NEUROLOGICAL: awake alert opens eyes, make eye contact but not talking or following folllows commands PSYCHIATRIC: frustrated. 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 Persistent CO2 retention COmbination of COPD and CHF exacerbation BNP 1700+ Pt is critically ill and unstab;le today; agree with transfer to ICU Hyoperkalemia ? bactrim contriutng: better with withholding TS resolved hypercapnic resp failure and CHF exacerbartion Rec's: will cuca Angeles. Pt states that Dr Angeles is his last HIV provider, however he told me that he saw her over a year ago will cont profilaxis of MAC, PCP will monitor for OIs Gabby Barry RN, MD Nov 18, 2017 17:13
--- NOTE | 2017-11-18 18:08 | HHI.PR ---
Subjective Remarks Follow-up of respiratory failure, acute renal failure, and HIV/AIDS. Patient is doing well. No acute concerns. No chest pain, shortness of breath, fever, chills. Objective Vitals Vital Signs Date Time Temp Pulse Resp B/P (MAP) Pulse Ox O2 Delivery O2 Flow Rate FiO2 11/18/17 17:00 98.3 101 20 148/91 (110) 96 11/18/17 08:30 100 Nasal Cannula 3.00 11/18/17 08:00 95 11/18/17 07:00 96 Nasal Cannula 4.00 11/18/17 06:00 89 11/18/17 04:00 97.6 83 22 146/102 (117) 98 11/18/17 04:00 83 11/18/17 03:00 97 Bi-Pap 35 11/18/17 02:00 79 11/18/17 01:20 99 35 11/18/17 00:00 98.2 89 16 142/88 (106) 99 11/18/17 00:00 89 11/17/17 23:00 99 Bi-Pap 35 11/17/17 22:00 85 11/17/17 21:39 98 35 11/17/17 20:40 98 Nasal Cannula 2.00 11/17/17 20:00 95 11/17/17 20:00 98.1 95 18 135/80 (98) 96 11/17/17 19:00 96 Nasal Cannula 4.00 I/O 11/17/17 11/17/17 11/17/17 11/18/17 11/18/17 11/18/17 07:00 15:00 23:00 07:00 15:00 23:00 Intake Total 480 ml 800 ml 480 ml 30 ml Output Total 700 ml 1500 ml 650 ml Balance -220 ml -700 ml -170 ml 30 ml Intake Oral 480 ml 800 ml 480 ml 30 ml Output Urine Total 700 ml 1500 ml 650 ml # Voids 1 # Bowel Movements 1 3 0 1 Result Diagram: 11/18/17 1503 11/18/17 1503 Imaging Last Impressions Chest X-Ray 11/16/17 0600 Signed Impressions: CONCLUSION: Cardiomegaly. Bibasilar areas of atelectasis or consolidation being worse on the right. Some of the increased density at the bases may be related to effusions. Renal Ultrasound 10/26/17 0000 Signed Impressions: Service Date/Time: Thursday, October 26, 2017 20:06 - CONCLUSION: 1. There is some increased echogenicity of the renal parenchyma suggestive of chronic medical renal disease. 2. No evidence of hydronephrosis. 3. Small 1.1 cm cyst upper pole left kidney. Giuseppe Street MD Objective Remarks GENERAL: Alert, NAD. SKIN: Warm and dry. HEAD: Normocephalic. EYES: No scleral icterus. No injection or drainage. NECK: Supple, trachea midline. No JVD or lymphadenopathy. CARDIOVASCULAR: Regular rate and rhythm without murmurs, gallops, or rubs. RESPIRATORY: Breath sounds equal bilaterally. No accessory muscle use. GASTROINTESTINAL: Abdomen soft, non-tender, nondistended. MUSCULOSKELETAL: No cyanosis. Significant lymphedema present jaison right lower ext. BACK: Nontender without obvious deformity. No CVA tenderness. Procedures 10/27/17 right femoral Vas-Cath placement A/P Assessment and Plan 56 YOAAM with numerous medical problems including HIV, DM, COPD, CKD, HTN, and dilated cardiomyopathy initially admitted 10/26 for respiratory distress and AMS found to be in acute renal failure with critical hyperkalemia. Nephrology has been consulted to managed his renal failure; cardiology to manage his nonischemic dilated cardiomyopathy and wide complex tachyarrhythmias; ID to manage ESBL in urine as well as HIV/AIDS; and pulmonology to assist in management of worsening respiratory status with hypercapnia and hypoxemia. He has been transferred back and forth from the hospitalist service to critical care several times during the course of his hospitalization. He has been awake and alert and on nasal cannula so care has been transferred again to the hospitalist service. 1. Acute respiratory failure, COPD, CO2 retention - Improved and on nasal cannula - BiPAP as needed - Supplemental O2 PRN - Continue bronchodilators, Symbicort - Continue Prednisone - Repeat CXR showing bibasilar areas of atelectasis or consolidation, worse on the right - Pulmonology following, appreciate reccs 2. Acute metabolic encephalopathy - Secondary to renal failure - Mental status is improving 3. Cardiomyopathy - Echocardiogram showed ejection fraction of 20% - AICD in place - Continue Coreg - Appreciate cardiology recommendations 4. Acute kidney injury superimposed on chronic kidney disease - Appreciate nephrology recommendations - Required short-term dialysis - Creatinine is improving - Monitor renal function, I/O - Avoid nephrotoxins - Continue supportive care 5. Anemia, likely secondary to chronic disease and acute illness - H&H stable - Continue to monitor 6. UTI - Urine culture growing ESBL positive Klebsiella, s/p treatment with Avycaz - Appreciate infectious disease recommendations 7. HIV/AIDS - Low CD4 count of 14 - ID following - On Atovaquone 1500mg Qday and Azithromycin 1200mg PO Q7 days for prophylaxis. - Avoiding Bactrim secondary to hypokalemia therefore on Atovaquine 8. HTN - Continue Hydralazine and Carvedilol - Clonidine PRN 9. DM - Check A1c - Glucose is not controlled. Will increase Levemir to 15 units QHS, add pre- meal Aspart and continue Sliding scale insulin. 10. Agitation - Continue Seroquel BID 11. Hepatitis B - LFTs WNL - Avoid hepatotoxins DVT prophylaxis: SCDs, heparin Jaymie Enrique DO Nov 18, 2017 18:07
[2017-11-18 19:51] LABS: HEMOGLOBIN A1C 6.3 % (4.3-6.0)
[2017-11-19] VITALS (29 sets, daily range): BP systolic 135–144; BP diastolic 87–98; PULSE 86–106; RESP 20–22; TEMP 96.4–98.5; O2SAT 95–100
[2017-11-19] MEDS: hydrALAZINE HCL 25 MG TAB PO SCH ×3 (05:30→20:47)
[2017-11-19] MEDS: INSULIN ASPART SUPPLEMENTAL SCALE SQ SCH ×4 (08:00→20:41)
[2017-11-19] MEDS: BUDESONIDE-FORMOTEROL 160/4.5 MCG INHALER INH SCH ×2 (08:41→20:43)
[2017-11-19] MEDS: predniSONE 20 MG TAB PO SCH (08:42)
[2017-11-19] MEDS: QUEtiapine FUMARATE 25 MG TAB PO SCH ×2 (08:42→12:33)
[2017-11-19] MEDS: FAMOTIDINE 20 MG TAB PO SCH ×2 (08:42→20:41)
[2017-11-19] MEDS: CARVEDILOL 12.5 MG TAB PO SCH ×2 (08:43→20:42)
[2017-11-19] MEDS: amLODIPine BESYLATE 5 MG TAB PO SCH (08:43)
[2017-11-19] MEDS: FUROSEMIDE 100 MG/10 ML VIAL IV PUSH SCH (08:43)
[2017-11-19] MEDS: SODIUM CHLORIDE 0.9% FLUSH 10 ML FLUSH IV FLUSH SCH ×2 (08:44→20:42)
[2017-11-19] MEDS: INSULIN DETEMIR 100 UNITS/ML VIAL SQ SCH ×2 (08:44→20:41)
[2017-11-19] MEDS: ATOVAQUONE SUSP 750 MG/5 ML UDC PO SCH ×2 (09:00→10:29)
--- NOTE | 2017-11-19 09:46 | HHI.PR ---
Subjective Remarks Follow-up of respiratory failure, acute renal failure, and HIV/AIDS. Patient is doing well. Initially he requested that we put his BiPAP back on. He appears comfortable. He changed his mind and requested some coffee instead. Objective Vitals Vital Signs Date Time Temp Pulse Resp B/P (MAP) Pulse Ox O2 Delivery O2 Flow Rate FiO2 11/19/17 09:30 86 11/19/17 08:02 97.6 105 20 141/89 (106) 98 11/19/17 08:02 105 11/19/17 08:02 Nasal Cannula 4.00 11/19/17 06:00 92 11/19/17 05:00 88 11/19/17 04:18 99 35 11/19/17 04:00 Nasal Cannula 4.00 11/19/17 04:00 88 11/19/17 04:00 97.5 93 20 143/87 (105) 100 11/19/17 03:00 92 11/19/17 02:00 94 11/19/17 01:40 97 35 11/19/17 01:40 97 BiPAP 35 11/19/17 01:00 94 11/19/17 00:00 96.4 97 20 136/87 (103) 96 11/19/17 00:00 99 11/19/17 00:00 Nasal Cannula 4.00 11/18/17 22:03 99 Nasal Cannula 3.00 11/18/17 22:00 94 11/18/17 21:00 98 11/18/17 20:00 Nasal Cannula 4.00 11/18/17 20:00 99 11/18/17 20:00 97.3 98 20 152/86 (108) 96 11/18/17 18:00 96 11/18/17 18:00 96 Nasal Cannula 4.00 11/18/17 17:00 98.3 101 20 148/91 (110) 96 11/18/17 17:00 94 11/18/17 16:00 94 I/O 11/18/17 11/18/17 11/18/17 11/19/17 11/19/17 11/19/17 07:00 15:00 23:00 07:00 15:00 23:00 Intake Total 480 ml 30 ml 480 ml Output Total 650 ml Balance -170 ml 30 ml 480 ml Intake Oral 480 ml 30 ml 480 ml Output Urine Total 650 ml # Voids 1 2 # Bowel Movements 0 1 1 Result Diagram: 11/18/17 1503 11/18/17 1503 Imaging Last Impressions Chest X-Ray 11/16/17 0600 Signed Impressions: CONCLUSION: Cardiomegaly. Bibasilar areas of atelectasis or consolidation being worse on the right. Some of the increased density at the bases may be related to effusions. Renal Ultrasound 10/26/17 0000 Signed Impressions: Service Date/Time: Thursday, October 26, 2017 20:06 - CONCLUSION: 1. There is some increased echogenicity of the renal parenchyma suggestive of chronic medical renal disease. 2. No evidence of hydronephrosis. 3. Small 1.1 cm cyst upper pole left kidney. Giuseppe Street MD Objective Remarks GENERAL: Alert, NAD. SKIN: Warm and dry. HEAD: Normocephalic. EYES: No scleral icterus. No injection or drainage. NECK: Supple, trachea midline. No JVD or lymphadenopathy. CARDIOVASCULAR: Regular rate and rhythm without murmurs, gallops, or rubs. RESPIRATORY: Breath sounds equal bilaterally. No accessory muscle use. GASTROINTESTINAL: Abdomen soft, non-tender, nondistended. MUSCULOSKELETAL: No cyanosis. Significant lymphedema present jaison right lower ext. BACK: Nontender without obvious deformity. No CVA tenderness. Procedures 10/27/17 right femoral Vas-Cath placement A/P Assessment and Plan 56 YOAAM with numerous medical problems including HIV, DM, COPD, CKD, HTN, and dilated cardiomyopathy initially admitted 10/26 for respiratory distress and AMS found to be in acute renal failure with critical hyperkalemia. Nephrology has been consulted to managed his renal failure; cardiology to manage his nonischemic dilated cardiomyopathy and wide complex tachyarrhythmias; ID to manage ESBL in urine as well as HIV/AIDS; and pulmonology to assist in management of worsening respiratory status with hypercapnia and hypoxemia. He has been transferred back and forth from the hospitalist service to critical care several times during the course of his hospitalization. He has been awake and alert and on nasal cannula so care has been transferred again to the hospitalist service. 1. Acute respiratory failure, COPD, CO2 retention - Improved and on nasal cannula - BiPAP as needed - Supplemental O2 PRN - Continue bronchodilators, Symbicort - Continue Prednisone - CXR from 11/15/2017 shows no evidence of pneumonia. - Pulmonology following, appreciate reccs 2. Acute metabolic encephalopathy - Secondary to renal failure - Mental status is improving 3. Cardiomyopathy - Echocardiogram showed ejection fraction of 20% - AICD in place - Continue Coreg - Appreciate cardiology recommendations 4. Acute kidney injury superimposed on chronic kidney disease - Appreciate nephrology recommendations - Required short-term dialysis - Creatinine is improving - Monitor renal function, I/O - Avoid nephrotoxins - Continue supportive care 5. Anemia, likely secondary to chronic disease and acute illness - H&H stable - Continue to monitor 6. UTI - Urine culture growing ESBL positive Klebsiella, s/p treatment with Avycaz - Appreciate infectious disease recommendations 7. HIV/AIDS - Low CD4 count of 14 - ID following - On Atovaquone 1500mg Qday and Azithromycin 1200mg PO Q7 days for prophylaxis. - Avoiding Bactrim secondary to hypokalemia therefore on Atovaquine 8. HTN - Continue Hydralazine and Carvedilol - Clonidine PRN 9. DM - Check A1c - Glucose is not controlled. Continue Levemir to 15 units QHS, add pre-meal Aspart and continue Sliding scale insulin. 10. Agitation - Continue Seroquel BID 11. Hepatitis B - LFTs WNL - Avoid hepatotoxins DVT prophylaxis: SCDs, heparin Anticipate discharge Jaymie Enrique DO Nov 19, 2017 09:45
[2017-11-19] MEDS: HEPARIN SODIUM - SQ 10,000 UNITS/ML VIAL SQ SCH (10:29)
--- NOTE | 2017-11-19 10:29 | HHI.NPPN ---
Subjective General Problems: Anemia, Edema, Hypertension Renal Failure: Stage IV History of Present Illness 56-year-old male with a past medical history of hypertension, history of HIV, chronic lymphedema of the legs, diabetes mellitus, sleep apnea, ischemic heart disease, was brought to the hospital with altered mental status and not feeling well. I was called to see the patient because of elevated BUN and creatinine and high potassium. The patient has known history of chronic kidney disease and patient was seen by me when he was here in March last year. At that time, he had creatinine in the range of 2.3-3.0 and he was discharged with a creatinine of 2.5 and now he came with a creatinine of 5.0 and also potassium of 7.3. Additional Remarks Continues to have mild shortness of breath and moderate edema. (Sameera Rudd) Review of Systems Respiratory Lungs: SOB (Sameera Rudd) Cardiovascular Cardiac Remarks denies any Chest pain (Sameera Rudd) Gastrointestinal GI Remarks denies any abdominal pain (Sameera Rudd) Objective Data Data Vital Signs Date Time Temp Pulse Resp B/P (MAP) Pulse Ox O2 Delivery O2 Flow Rate FiO2 11/19/17 10:06 100 11/19/17 09:30 86 11/19/17 08:02 97.6 105 20 141/89 (106) 98 11/19/17 08:02 105 11/19/17 08:02 Nasal Cannula 4.00 11/19/17 06:00 92 11/19/17 05:00 88 11/19/17 04:18 99 35 11/19/17 04:00 Nasal Cannula 4.00 11/19/17 04:00 88 11/19/17 04:00 97.5 93 20 143/87 (105) 100 11/19/17 03:00 92 11/19/17 02:00 94 11/19/17 01:40 97 35 11/19/17 01:40 97 BiPAP 35 11/19/17 01:00 94 11/19/17 00:00 96.4 97 20 136/87 (103) 96 11/19/17 00:00 99 11/19/17 00:00 Nasal Cannula 4.00 11/18/17 22:03 99 Nasal Cannula 3.00 11/18/17 22:00 94 11/18/17 21:00 98 11/18/17 20:00 Nasal Cannula 4.00 11/18/17 20:00 99 11/18/17 20:00 97.3 98 20 152/86 (108) 96 11/18/17 18:00 96 11/18/17 18:00 96 Nasal Cannula 4.00 11/18/17 17:00 98.3 101 20 148/91 (110) 96 11/18/17 17:00 94 11/18/17 16:00 94 (Sameera Rudd) -: 11/18/17 1503 11/18/17 1503 Physical Exam General Appearance: No Acute Distress (Sameera Rudd) Eyes Eye Exam: Pupils Equal (Sameera Rudd) Throat Throat Exam: Oral Mucosa [place] & Moist (Sameera Rudd) Pulmonary Resp Exam: Rhonchi, Decreased Bases, Diminished Breath Sounds (Sameera Rudd) Cardiology CV Exam: Regular (Sameera Rudd) Gastrointestinal/Abdomen GI Exam: Soft, Non-Tender, Bowel Sounds Present, Distended (Sameera Rudd) Integumentary Skin Exam: Clear, Warm (Sameera Rudd) Extremeties Extremities Exam: Pitting Edema, Dependent Edema Extremeties Remarks lymphedema right leg (Sameera Rudd) Neurologic Neuro Exam: Alert, Awake, Oriented, Obtunded (Sameera Rudd) Psychiatric Psych Exam: Appropriate Responses (Sameera Rudd) Assessment/Plan Assessment Summary: Anemia of CKD, CKD Stage V Electrolyte Assessment: Hyperkalemia Problem List: (1) Chronic kidney disease, stage 4 (severe) ICD Codes: N18.4 - Chronic kidney disease, stage 4 (severe) Plan: Patient has been on dialysis last one was on 10/28 Vas-Cath was removed Continue lasix BID as patient has edema Good urinary output Low potassium diet Creatinine continues to improve at 2.49 from 2.55 which is baseline. (2) DM (diabetes mellitus) ICD Codes: E11.9 - DM (diabetes mellitus) Status: Chronic (3) Chronic systolic CHF (congestive heart failure) ICD Codes: I50.22 - Chronic systolic CHF (congestive heart failure) Status: Chronic Plan: Continue lasix (4) Hyperkalemia ICD Codes: E87.5 - Hyperkalemia Status: Acute Plan: Resolved (5) Hypertension ICD Codes: I10 - Hypertension Status: Chronic (6) COPD exacerbation ICD Codes: J44.1 - COPD exacerbation Status: Acute (7) Respiratory distress ICD Codes: R06.00 - Respiratory distress Status: Acute (8) HIV (human immunodeficiency virus infection) ICD Codes: Z21 - HIV (human immunodeficiency virus infection) Status: Chronic (9) PNA (pneumonia) ICD Codes: J18.9 - PNA (pneumonia) Status: Acute (10) Hepatitis C ICD Codes: B19.20 - Hepatitis C Status: Chronic (Sameera Rudd) Problem List: (1) Chronic kidney disease, stage 4 (severe) ICD Codes: N18.4 - Chronic kidney disease, stage 4 (severe) Plan: Patient has been on dialysis last one was on 10/28 Vas-Cath was removed Continue lasix BID as patient has edema Good urinary output Low potassium diet Creatinine continues to improve at 2.49 from 2.55 which is baseline. Patient seen and examined, agree with above. Creatinine close to baseline, K is normal. (2) DM (diabetes mellitus) ICD Codes: E11.9 - DM (diabetes mellitus) Status: Chronic (3) Chronic systolic CHF (congestive heart failure) ICD Codes: I50.22 - Chronic systolic CHF (congestive heart failure) Status: Chronic Plan: Continue lasix (4) Hyperkalemia ICD Codes: E87.5 - Hyperkalemia Status: Acute Plan: Resolved (5) Hypertension ICD Codes: I10 - Hypertension Status: Chronic (6) COPD exacerbation ICD Codes: J44.1 - COPD exacerbation Status: Acute (7) Respiratory distress ICD Codes: R06.00 - Respiratory distress Status: Acute (8) HIV (human immunodeficiency virus infection) ICD Codes: Z21 - HIV (human immunodeficiency virus infection) Status: Chronic (9) PNA (pneumonia) ICD Codes: J18.9 - PNA (pneumonia) Status: Acute (10) Hepatitis C ICD Codes: B19.20 - Hepatitis C Status: Chronic (Millicent Ga MD) Sameera Rudd Nov 19, 2017 10:29 Millicent Ga MD Nov 19, 2017 23:54
--- NOTE | 2017-11-19 12:26 | HHI.PR ---
Subjective Remarks Used BIPAP last night and FIO2 30 %. Is on N/C since this am. Drowsy. Remains SOB. Objective Vital Signs Date Time Temp Pulse Resp B/P (MAP) Pulse Ox O2 Delivery O2 Flow Rate FiO2 11/19/17 12:08 92 11/19/17 11:07 97.6 102 22 139/91 (107) 98 11/19/17 11:06 101 11/19/17 11:06 Nasal Cannula 4.00 11/19/17 10:06 100 11/19/17 09:30 86 11/19/17 08:02 97.6 105 20 141/89 (106) 98 11/19/17 08:02 105 11/19/17 08:02 Nasal Cannula 4.00 11/19/17 06:00 92 11/19/17 05:00 88 11/19/17 04:18 99 35 11/19/17 04:00 Nasal Cannula 4.00 11/19/17 04:00 88 11/19/17 04:00 97.5 93 20 143/87 (105) 100 11/19/17 03:00 92 11/19/17 02:00 94 11/19/17 01:40 97 35 11/19/17 01:40 97 BiPAP 35 11/19/17 01:00 94 11/19/17 00:00 96.4 97 20 136/87 (103) 96 11/19/17 00:00 99 11/19/17 00:00 Nasal Cannula 4.00 11/18/17 22:03 99 Nasal Cannula 3.00 11/18/17 22:00 94 11/18/17 21:00 98 11/18/17 20:00 Nasal Cannula 4.00 11/18/17 20:00 99 11/18/17 20:00 97.3 98 20 152/86 (108) 96 11/18/17 18:00 96 11/18/17 18:00 96 Nasal Cannula 4.00 11/18/17 17:00 98.3 101 20 148/91 (110) 96 11/18/17 17:00 94 11/18/17 16:00 94 I/O 11/18/17 11/18/17 11/18/17 11/19/17 11/19/17 11/19/17 07:00 15:00 23:00 07:00 15:00 23:00 Intake Total 480 ml 30 ml 480 ml Output Total 650 ml Balance -170 ml 30 ml 480 ml Intake Oral 480 ml 30 ml 480 ml Output Urine Total 650 ml # Voids 1 2 # Bowel Movements 0 1 1 Result Diagram: 11/18/17 1503 11/18/17 1503 Objective Remarks GENERAL: This is a middle aged, obese male who is having 2 + leg edema with induration of the skin of the lower extremities. HEENT: Head is normocephalic. Pupils are reactive. Sclerae were clear. Throat clear. NECK: Supple, no bruits or thyroid enlargement or lymphadenopathy. CHEST: Decreased breath sounds at the bases with wheezes over both lung gomez. HEART: Sounds are irregular S1 and S2. No murmur. No S3. ABDOMEN: Soft, protuberant and Bowel sounds are active. EXTREMITIES: Lymphedema with pigmentation of the skin of the lower extremities. NEUROLOGIC: He is awake and lethargic .Reflexes 1 + Skin is dry. Assessment and Plan Assessment and Plan IMPRESSION: 1. Hypercapnic respiratory failure. 2. Pulmonary edema and right pleural effusion. 3. Acute renal failure. 4. Diabetes mellitus. 5. Anemia. 6. History of human immunodeficiency virus disease. 7. Urinary tract infection and sepsis. 8. Probable pneumonia. Plan : 1. Continue nebs qid , duoneb 2. Cont BIPAP 15/6, FIo2 30 % at HS and PRN daytime 3. Continue antibiotics per ID 4. Up with help 5. Cont Lasix 80 mg IV daily 6. O2 4 L N/C daytime 7. Symbicort 160/4.5 mcg , 2 puffs bid 8. Taper Prednisone 30 mg daily Zahida Brannon MD Nov 19, 2017 12:26
[2017-11-19] MEDS: INSULIN ASPART 1,000 UNITS/10 ML VIAL SQ SCH (17:00)
[2017-11-19] MEDS: FUROSEMIDE 40 MG/4 ML VIAL IV PUSH SCH (17:58)
[2017-11-20] VITALS (28 sets, daily range): BP systolic 112–144; BP diastolic 76–104; PULSE 84–108; RESP 18–24; TEMP 97.4–98.8; O2SAT 93–100
[2017-11-20] MEDS: HEPARIN SODIUM - SQ 10,000 UNITS/ML VIAL SQ SCH ×3 (01:13→10:39)
[2017-11-20] MEDS: CHLORHEXIDINE GLUCONATE 2 % 1 PACK (2 CLOTHS) TOP SCH ×2 (04:00→21:19)
[2017-11-20] MEDS: hydrALAZINE HCL 25 MG TAB PO SCH ×3 (05:41→21:18)
[2017-11-20] MEDS: INSULIN ASPART SUPPLEMENTAL SCALE SQ SCH ×4 (08:00→21:16)
[2017-11-20] MEDS: INSULIN ASPART 1,000 UNITS/10 ML VIAL SQ SCH ×3 (08:00→17:00)
[2017-11-20] MEDS: SODIUM CHLORIDE 0.9% FLUSH 10 ML FLUSH IV FLUSH SCH ×2 (09:00→21:19)
[2017-11-20] MEDS: BUDESONIDE-FORMOTEROL 160/4.5 MCG INHALER INH SCH ×2 (09:00→21:18)
--- NOTE | 2017-11-20 10:25 | HHI.NPPN ---
Subjective General Problems: Anemia, Edema, Hypertension Renal Failure: Stage IV History of Present Illness 56-year-old male with a past medical history of hypertension, history of HIV, chronic lymphedema of the legs, diabetes mellitus, sleep apnea, ischemic heart disease, was brought to the hospital with altered mental status and not feeling well. I was called to see the patient because of elevated BUN and creatinine and high potassium. The patient has known history of chronic kidney disease and patient was seen by me when he was here in March last year. At that time, he had creatinine in the range of 2.3-3.0 and he was discharged with a creatinine of 2.5 and now he came with a creatinine of 5.0 and also potassium of 7.3. Additional Remarks Continues to have shortness of breath on bipap. Scrotal edema (Sameera Rudd) Review of Systems Respiratory Lungs: SOB (Sameera Rudd) Cardiovascular Cardiac Remarks denies any Chest pain (Sameera Rudd) Gastrointestinal GI Remarks denies any abdominal pain (Sameera Rudd) Objective Data Data Vital Signs Date Time Temp Pulse Resp B/P (MAP) Pulse Ox O2 Delivery O2 Flow Rate FiO2 11/20/17 08:56 98 30 11/20/17 05:38 97.4 86 18 138/98 (111) 99 11/20/17 04:01 89 11/20/17 03:00 86 11/20/17 02:51 98 30 11/20/17 02:24 98 Bi-Pap 11/20/17 02:00 84 11/20/17 01:13 97.7 22 112/83 (93) 98 11/20/17 01:00 88 11/20/17 00:00 98 11/19/17 23:00 94 11/19/17 22:40 98 30 11/19/17 22:40 97 Nasal Cannula 4.00 11/19/17 22:00 98 11/19/17 21:00 104 11/19/17 20:37 103 11/19/17 20:34 98.5 106 20 135/87 (103) 98 11/19/17 20:30 95 Nasal Cannula 4.00 11/19/17 19:00 106 11/19/17 18:09 101 11/19/17 17:33 102 11/19/17 16:37 96 11/19/17 15:06 97.9 105 22 144/98 (113) 95 11/19/17 15:05 95 Nasal Cannula 4.00 11/19/17 15:05 102 11/19/17 14:50 Nasal Cannula 4.00 11/19/17 14:45 98 11/19/17 13:40 102 11/19/17 12:08 92 11/19/17 11:07 97.6 102 22 139/91 (107) 98 11/19/17 11:06 101 11/19/17 11:06 Nasal Cannula 4.00 (Sameera Rudd) -: 11/18/17 1503 11/18/17 1503 Physical Exam General Appearance: No Acute Distress (Sameera Rudd) Eyes Eye Exam: Pupils Equal (Sameera Rudd) Throat Throat Exam: Oral Mucosa [place] & Moist (Sameera Rudd) Pulmonary Resp Exam: Rhonchi, Decreased Bases, Diminished Breath Sounds (Sameera Rudd) Cardiology CV Exam: Regular (Sameera Rudd) Gastrointestinal/Abdomen GI Exam: Soft, Non-Tender, Bowel Sounds Present, Distended (Sameera Rudd) Integumentary Skin Exam: Clear, Warm (Sameera Rudd) Extremeties Extremities Exam: Pitting Edema, Dependent Edema Extremeties Remarks lymphedema right leg (Sameera Rudd) Neurologic Neuro Exam: Alert, Awake, Oriented, Obtunded (Sameera Rudd) Psychiatric Psych Exam: Appropriate Responses (Sameera Rudd) Assessment/Plan Assessment Summary: Anemia of CKD, CKD Stage V Electrolyte Assessment: Hyperkalemia Problem List: (1) Chronic kidney disease, stage 4 (severe) ICD Codes: N18.4 - Chronic kidney disease, stage 4 (severe) Plan: Patient has been on dialysis last one was on 10/28 Vas-Cath was removed Continue lasix BID as patient has edema Continue Diamox Good urinary output Low potassium diet Labs pending this morning. (2) DM (diabetes mellitus) ICD Codes: E11.9 - DM (diabetes mellitus) Status: Chronic (3) Chronic systolic CHF (congestive heart failure) ICD Codes: I50.22 - Chronic systolic CHF (congestive heart failure) Status: Chronic Plan: Continue lasix (4) Hyperkalemia ICD Codes: E87.5 - Hyperkalemia Status: Acute Plan: Resolved (5) Hypertension ICD Codes: I10 - Hypertension Status: Chronic Plan: Well controlled (6) COPD exacerbation ICD Codes: J44.1 - COPD exacerbation Status: Acute (7) Respiratory distress ICD Codes: R06.00 - Respiratory distress Status: Acute (8) HIV (human immunodeficiency virus infection) ICD Codes: Z21 - HIV (human immunodeficiency virus infection) Status: Chronic (9) PNA (pneumonia) ICD Codes: J18.9 - PNA (pneumonia) Status: Acute (10) Hepatitis C ICD Codes: B19.20 - Hepatitis C Status: Chronic (Sameera Rudd) Problem List: (1) Chronic kidney disease, stage 4 (severe) ICD Codes: N18.4 - Chronic kidney disease, stage 4 (severe) Plan: Patient has been on dialysis last one was on 10/28 Vas-Cath was removed Continue lasix BID as patient has edema Continue Diamox Good urinary output Low potassium diet Labs pending this morning. Patient seen and examined, agree with above. Has Chronic kidney disease and develop MARION, Continue diuretics and follow the BMP. (2) DM (diabetes mellitus) ICD Codes: E11.9 - DM (diabetes mellitus) Status: Chronic (3) Chronic systolic CHF (congestive heart failure) ICD Codes: I50.22 - Chronic systolic CHF (congestive heart failure) Status: Chronic Plan: Continue lasix (4) Hyperkalemia ICD Codes: E87.5 - Hyperkalemia Status: Acute Plan: Resolved (5) Hypertension ICD Codes: I10 - Hypertension Status: Chronic Plan: Well controlled (6) COPD exacerbation ICD Codes: J44.1 - COPD exacerbation Status: Acute (7) Respiratory distress ICD Codes: R06.00 - Respiratory distress Status: Acute (8) HIV (human immunodeficiency virus infection) ICD Codes: Z21 - HIV (human immunodeficiency virus infection) Status: Chronic (9) PNA (pneumonia) ICD Codes: J18.9 - PNA (pneumonia) Status: Acute (10) Hepatitis C ICD Codes: B19.20 - Hepatitis C Status: Chronic (Millicent Ga MD) Sameera Rudd Nov 20, 2017 10:25 Millicent Ga MD Nov 21, 2017 13:44
[2017-11-20] MEDS: FUROSEMIDE 100 MG/10 ML VIAL IV PUSH SCH (10:37)
[2017-11-20] MEDS: ATOVAQUONE SUSP 750 MG/5 ML UDC PO SCH ×2 (10:37→11:25)
[2017-11-20] MEDS: QUEtiapine FUMARATE 25 MG TAB PO SCH ×2 (10:39→12:26)
[2017-11-20] MEDS: predniSONE 10 MG TAB PO SCH (10:39)
[2017-11-20] MEDS: CARVEDILOL 12.5 MG TAB PO SCH ×2 (10:39→21:17)
[2017-11-20] MEDS: amLODIPine BESYLATE 5 MG TAB PO SCH (10:40)
[2017-11-20] MEDS: FAMOTIDINE 20 MG TAB PO SCH (10:40)
[2017-11-20] MEDS ORDERED: CARV12.5 PO (12:42)
[2017-11-20] MEDS ORDERED: ATOV750UDC PO (12:42)
[2017-11-20] MEDS ORDERED: HYDR-3799 PO (12:42)
[2017-11-20] MEDS ORDERED: OXYC-395 PO (12:42)
[2017-11-20] MEDS ORDERED: AZIT600T PO (12:42)
[2017-11-20] MEDS ORDERED: NOVOLOGP2 SQ ×2 (12:42)
[2017-11-20] MEDS ORDERED: INSU1INJ18 SQ (12:42)
[2017-11-20] MEDS ORDERED: AMLO5 PO (12:42)
[2017-11-20] MEDS: FONDAPARINUX SODIUM 2.5 MG/0.5 ML SYRINGE SQ SCH (16:04)
--- NOTE | 2017-11-20 16:15 | HHI.PR ---
Subjective Remarks On BiPAP this am , and FIO2 30 %. Awake and seems to be less SOB.. Less leg edema Objective Vital Signs Date Time Temp Pulse Resp B/P (MAP) Pulse Ox O2 Delivery O2 Flow Rate FiO2 11/20/17 15:00 98 11/20/17 14:00 90 11/20/17 13:00 86 11/20/17 12:00 106 11/20/17 11:15 98.0 101 22 125/76 (92) 98 11/20/17 11:15 Nasal Cannula 11/20/17 11:00 104 11/20/17 10:00 106 11/20/17 09:00 108 11/20/17 08:56 98 30 11/20/17 08:00 90 11/20/17 07:50 98.4 100 22 131/92 (105) 98 11/20/17 07:00 108 11/20/17 07:00 98 Nasal Cannula 4.00 11/20/17 05:38 97.4 86 18 138/98 (111) 99 11/20/17 04:01 89 11/20/17 03:00 86 11/20/17 02:51 98 30 11/20/17 02:24 98 Bi-Pap 11/20/17 02:00 84 11/20/17 01:13 97.7 22 112/83 (93) 98 11/20/17 01:00 88 11/20/17 00:00 98 11/19/17 23:00 94 11/19/17 22:40 98 30 11/19/17 22:40 97 Nasal Cannula 4.00 11/19/17 22:00 98 11/19/17 21:00 104 11/19/17 20:37 103 11/19/17 20:34 98.5 106 20 135/87 (103) 98 11/19/17 20:30 95 Nasal Cannula 4.00 11/19/17 19:00 106 11/19/17 18:09 101 11/19/17 17:33 102 11/19/17 16:37 96 I/O 11/19/17 11/19/17 11/19/17 11/20/17 11/20/17 11/20/17 07:00 15:00 23:00 07:00 15:00 23:00 Intake Total 480 ml 960 ml 240 ml Balance 480 ml 960 ml 240 ml Intake Oral 480 ml 960 ml 240 ml # Voids 2 3 3 # Bowel Movements 1 2 1 Result Diagram: 11/18/17 1503 11/18/17 1503 Objective Remarks GENERAL: This is a middle aged, obese male who is having 2 + leg edema with induration of the skin of the lower extremities. HEENT: Head is normocephalic. Pupils are reactive. Sclerae were clear. Throat clear. NECK: Supple, no bruits or thyroid enlargement or lymphadenopathy. CHEST: Decreased breath sounds at the bases with wheezes over both lung gomez.Occ basal crackles HEART: Sounds are irregular S1 and S2. No murmur. No S3. ABDOMEN: Soft, protuberant and Bowel sounds are active. EXTREMITIES: Lymphedema with pigmentation of the skin of the lower extremities. NEUROLOGIC: He is awake and responds . .Reflexes 1 + Skin is dry. Assessment and Plan Assessment and Plan IMPRESSION: 1. Hypercapnic respiratory failure. 2. Pulmonary edema and right pleural effusion. 3. Acute renal failure. 4. Diabetes mellitus. 5. Anemia. 6. History of human immunodeficiency virus disease. 7. Urinary tract infection and sepsis. 8. Probable pneumonia. Plan : 1. Continue nebs qid , duoneb 2. CBIPAP 15/6, FIo2 30 % at HS and PRN daytime 3. Continue antibiotics per ID 4. Up with help 5. Cont Lasix 80 mg IV daily and 40 mg. 6. O2 4 L N/C daytime 7. Symbicort 160/4.5 mcg , 2 puffs bid 8. Prednisone 30 mg daily 9. PT Evaluation. Zahida Brannon MD Nov 20, 2017 16:14
[2017-11-20 16:23] LABS: AUTOMATED NEUTROPHIL # 4.6 TH/MM3 (1.8-7.7); BASOPHIL % 0.2 % (0.0-2.0); EOSINOPHIL # 0.1 TH/MM3 (0-0.4); EOSINOPHIL % 1.1 % (0.0-4.0); HEMATOCRIT 29.2 % (39.0-51.0); HEMOGLOBIN 8.7 GM/DL (13.0-17.0); LYMPH % 4.3 % (9.0-44.0); LYMPHOCYTE # 0.2 TH/MM3 (1.0-4.8); MEAN CELL VOLUME 87.6 FL (80.0-100.0); MEAN CORPUSCULAR HEMOGLOBIN 26.1 PG (27.0-34.0); MEAN PLATELET VOLUME 7.8 FL (7.0-11.0); MONO % 6.6 % (0.0-8.0); MONOCYTE # 0.3 TH/MM3 (0-0.9); NEUT % 87.8 % (16.0-70.0); PLATELET COUNT 87 TH/MM3 (150-450); RED BLOOD COUNT 3.33 MIL/MM3 (4.50-5.90); RED CELL DISTRIBUTION WIDTH 22.5 % (11.6-17.2); WHITE BLOOD COUNT 5.2 TH/MM3 (4.0-11.0)
[2017-11-20 16:24] LABS: MEAN CORPUSCULAR HGB CONC 29.9 % (32.0-36.0)
[2017-11-20] MEDS: FUROSEMIDE 40 MG/4 ML VIAL IV PUSH SCH (17:00)
[2017-11-20 17:19] LABS: ALBUMIN 2.9 GM/DL (3.4-5.0); CALCIUM 7.6 MG/DL (8.5-10.1); CREATININE 2.37 MG/DL (0.60-1.30); PHOSPHORUS 3.4 MG/DL (2.5-4.9)
[2017-11-20] MEDS: INSULIN DETEMIR 100 UNITS/ML VIAL SQ SCH (21:16)
--- NOTE | 2017-11-20 22:38 | HHI.PR ---
Subjective Remarks Follow-up of respiratory failure, acute renal failure, and HIV/AIDS. Patient is currently doing well. No acute concerns. Patient was seen in the morning when he was using BiPAP. Objective Vitals Vital Signs Date Time Temp Pulse Resp B/P (MAP) Pulse Ox O2 Delivery O2 Flow Rate FiO2 11/20/17 20:00 98.3 97 20 144/104 (117) 100 11/20/17 20:00 Nasal Cannula 4.00 11/20/17 20:00 97 11/20/17 19:31 93 Nasal Cannula 3.00 11/20/17 18:00 102 11/20/17 17:00 85 11/20/17 16:00 92 11/20/17 15:00 98.8 93 24 131/78 (95) 98 11/20/17 15:00 98 11/20/17 15:00 98 Nasal Cannula 4.00 11/20/17 14:00 90 11/20/17 13:00 86 11/20/17 12:00 106 11/20/17 11:15 98.0 101 22 125/76 (92) 98 11/20/17 11:15 Nasal Cannula 11/20/17 11:00 104 11/20/17 10:00 106 11/20/17 09:00 108 11/20/17 08:56 98 30 11/20/17 08:00 90 11/20/17 07:50 98.4 100 22 131/92 (105) 98 11/20/17 07:00 108 11/20/17 07:00 98 Nasal Cannula 4.00 11/20/17 05:38 97.4 86 18 138/98 (111) 99 11/20/17 04:01 89 11/20/17 03:00 86 11/20/17 02:51 98 30 11/20/17 02:24 98 Bi-Pap 11/20/17 02:00 84 11/20/17 01:13 97.7 22 112/83 (93) 98 11/20/17 01:00 88 11/20/17 00:00 98 11/19/17 23:00 94 11/19/17 22:40 98 30 11/19/17 22:40 97 Nasal Cannula 4.00 I/O 11/19/17 11/19/17 11/19/17 11/20/17 11/20/1718 07:00 15:00 23:00 07:00 15:00 23:00 Intake Total 480 ml 960 ml 240 ml 780 ml Balance 480 ml 960 ml 240 ml 780 ml Intake Oral 480 ml 960 ml 240 ml 780 ml # Voids 2 3 3 5 # Bowel Movements 1 2 1 Result Diagram: 11/20/17 1603 11/20/17 1603 Imaging Last Impressions Chest X-Ray 11/16/17 0600 Signed Impressions: CONCLUSION: Cardiomegaly. Bibasilar areas of atelectasis or consolidation being worse on the right. Some of the increased density at the bases may be related to effusions. Renal Ultrasound 10/26/17 0000 Signed Impressions: Service Date/Time: Thursday, October 26, 2017 20:06 - CONCLUSION: 1. There is some increased echogenicity of the renal parenchyma suggestive of chronic medical renal disease. 2. No evidence of hydronephrosis. 3. Small 1.1 cm cyst upper pole left kidney. Giuseppe Street MD Objective Remarks GENERAL: Alert, NAD. SKIN: Warm and dry. HEAD: Normocephalic. EYES: No scleral icterus. No injection or drainage. NECK: Supple, trachea midline. No JVD or lymphadenopathy. CARDIOVASCULAR: Regular rate and rhythm without murmurs, gallops, or rubs. RESPIRATORY: Breath sounds equal bilaterally. No accessory muscle use. GASTROINTESTINAL: Abdomen soft, non-tender, nondistended. MUSCULOSKELETAL: No cyanosis. Significant lymphedema present jaison right lower ext. BACK: Nontender without obvious deformity. No CVA tenderness. Procedures 10/27/17 right femoral Vas-Cath placement A/P Assessment and Plan 56 YOAAM with numerous medical problems including HIV, DM, COPD, CKD, HTN, and dilated cardiomyopathy initially admitted 10/26 for respiratory distress and AMS found to be in acute renal failure with critical hyperkalemia. Nephrology has been consulted to managed his renal failure; cardiology to manage his nonischemic dilated cardiomyopathy and wide complex tachyarrhythmias; ID to manage ESBL in urine as well as HIV/AIDS; and pulmonology to assist in management of worsening respiratory status with hypercapnia and hypoxemia. He has been transferred back and forth from the hospitalist service to critical care several times during the course of his hospitalization. He has been awake and alert and on nasal cannula so care has been transferred again to the hospitalist service. 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 - Will d/c SQ Heparin and start Fondaparinux 2.5mg SC Qday. HIT ab pending. - Will obtain Doppler study to rule out upper or lower ext DVT. Acute respiratory failure, COPD, CO2 retention - Improved and on nasal cannula - BiPAP as needed - Supplemental O2 PRN - Continue bronchodilators, Symbicort - Continue Prednisone - CXR from 11/15/2017 shows no evidence of pneumonia. - Pulmonology following, appreciate recs. Acute metabolic encephalopathy - Secondary to renal failure - Mental status is improving Cardiomyopathy - Echocardiogram showed ejection fraction of 20% - AICD in place - Continue Coreg - Appreciate cardiology recommendations Acute kidney injury superimposed on chronic kidney disease - Appreciate nephrology recommendations - Required short-term dialysis - Creatinine is improving - Monitor renal function, I/O - Avoid nephrotoxins - Continue supportive care Anemia, likely secondary to chronic disease and acute illness - H&H stable - Continue to monitor UTI - Urine culture growing ESBL positive Klebsiella, s/p treatment with Avycaz - Appreciate infectious disease recommendations HIV/AIDS - Low CD4 count of 14 - ID following - On Atovaquone 1500mg Qday and Azithromycin 1200mg PO Q7 days for prophylaxis. - Avoiding Bactrim secondary to hypokalemia therefore on Atovaquone HTN - Continue Hydralazine and Carvedilol - Clonidine PRN DM - Check A1c - Glucose is not controlled. Continue Levemir to 15 units QHS, add pre-meal Aspart and continue Sliding scale insulin. Agitation - Continue Seroquel BID Full code. Fondaparinux Jaymie Enrique DO Nov 20, 2017 22:38
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
[2017-11-21] VITALS (19 sets, daily range): BP systolic 112–145; BP diastolic 77–101; PULSE 91–106; RESP 18–20; TEMP 97.5–98.7; O2SAT 97–100
[2017-11-21] MEDS: hydrALAZINE HCL 25 MG TAB PO SCH ×2 (04:34→13:16)
--- NOTE | 2017-11-21 05:06 | RADRPT ---
EXAM DATE: 11/21/2017 4:53 AM EDT AGE/SEX: 56 years / Male INDICATIONS: Shortness of breath, possible pulmonary disease. CLINICAL DATA: This is the patient's subsequent encounter. Patient reports that signs and symptoms h ave been present for 4 - 6 days and indicates a pain score of 5/10. MEDICAL/SURGICAL HISTORY: Diabetes mellitus type II. Cardiovascular disease. Congestive heart failure. Pacemaker. COMPARISON: [facility] [place], CHEST SINGLE AP, 11/16/2017. . FINDINGS: Pacing device unchanged. Bilateral mostly basilar airspace disease and small effusions are stable. No pneumothorax. CONCLUSION: Stable cardiomegaly with basilar airspace disease and small effusions. Electronically signed by: Samir Gerard MD 11/21/2017 5:05 AM EDT
[2017-11-21] MEDS: RESP: ALBUTEROL 2.5 MG/IPRATROPIUM 0.5 MG NEB (PRN) INH (05:11)
[2017-11-21] MEDS: INSULIN ASPART 1,000 UNITS/10 ML VIAL SQ SCH ×3 (08:00→17:00)
[2017-11-21] MEDS: INSULIN ASPART SUPPLEMENTAL SCALE SQ SCH ×3 (08:00→17:00)
[2017-11-21] MEDS: FUROSEMIDE 100 MG/10 ML VIAL IV PUSH SCH (08:46)
[2017-11-21] MEDS: SODIUM CHLORIDE 0.9% FLUSH 10 ML FLUSH IV FLUSH SCH (08:47)
[2017-11-21] MEDS: amLODIPine BESYLATE 5 MG TAB PO SCH (08:47)
[2017-11-21] MEDS: CARVEDILOL 12.5 MG TAB PO SCH (08:47)
[2017-11-21] MEDS: predniSONE 10 MG TAB PO SCH (08:47)
[2017-11-21] MEDS: BUDESONIDE-FORMOTEROL 160/4.5 MCG INHALER INH SCH (08:48)
[2017-11-21] MEDS: QUEtiapine FUMARATE 25 MG TAB PO SCH ×2 (08:48→13:16)
[2017-11-21] MEDS: ATOVAQUONE SUSP 750 MG/5 ML UDC PO SCH ×2 (08:48→08:57)
[2017-11-21] MEDS ORDERED: PANTOPRAZOLE SOD 40 MG DELAYED RELEASE TAB PO SCH (09:00)
--- NOTE | 2017-11-21 10:06 | HHI.NPPN ---
Subjective General Problems: Anemia, Edema, Hypertension Renal Failure: Stage IV History of Present Illness 56-year-old male with a past medical history of hypertension, history of HIV, chronic lymphedema of the legs, diabetes mellitus, sleep apnea, ischemic heart disease, was brought to the hospital with altered mental status and not feeling well. I was called to see the patient because of elevated BUN and creatinine and high potassium. The patient has known history of chronic kidney disease and patient was seen by me when he was here in March last year. At that time, he had creatinine in the range of 2.3-3.0 and he was discharged with a creatinine of 2.5 and now he came with a creatinine of 5.0 and also potassium of 7.3. Additional Remarks Sitting up in chair eating breakfast. Complaining that his food portions have been decreased. (Sameera Rudd) Review of Systems Respiratory Lungs: SOB (Sameera Rudd) Cardiovascular Cardiac Remarks denies any Chest pain (Sameera Rudd) Gastrointestinal GI Remarks denies any abdominal pain (Sameera Rudd) Objective Data Data Vital Signs Date Time Temp Pulse Resp B/P (MAP) Pulse Ox O2 Delivery O2 Flow Rate FiO2 11/21/17 06:00 92 11/21/17 05:11 98 35 11/21/17 05:00 91 11/21/17 04:00 95 11/21/17 04:00 Nasal Cannula 4.00 11/21/17 04:00 97.5 96 20 145/97 (113) 100 11/21/17 03:00 92 11/21/17 02:00 96 11/21/17 01:11 98 35 11/21/17 01:00 96 11/21/17 00:00 98.3 95 20 133/97 (109) 100 11/21/17 00:00 94 11/21/17 00:00 Nasal Cannula 4.00 11/20/17 23:00 92 11/20/17 22:00 100 11/20/17 21:00 92 11/20/17 20:00 98.3 97 20 144/104 (117) 100 11/20/17 20:00 Nasal Cannula 4.00 11/20/17 20:00 97 11/20/17 19:31 93 Nasal Cannula 3.00 11/20/17 18:00 102 11/20/17 17:00 85 11/20/17 16:00 92 11/20/17 15:00 98.8 93 24 131/78 (95) 98 11/20/17 15:00 98 11/20/17 15:00 98 Nasal Cannula 4.00 11/20/17 14:00 90 11/20/17 13:00 86 11/20/17 12:00 106 11/20/17 11:15 98.0 101 22 125/76 (92) 98 11/20/17 11:15 Nasal Cannula 11/20/17 11:00 104 (Sameera Rudd) -: 11/20/17 1603 11/20/17 1603 Imaging Last Impressions Chest X-Ray 11/21/17 0600 Signed Impressions: CONCLUSION: Stable cardiomegaly with basilar airspace disease and small effusions. Upper Extremity Ultrasound 11/20/17 0000 Signed Impressions: CONCLUSION: 1. Negative for deep venous thrombosis. In the right cephalic vein partially o cclusive thrombus is seen extending from the mid arm through the antecubital fo ssa. Lower Extremity Ultrasound 11/20/17 0000 Signed Impressions: CONCLUSION: 1. Negative for deep venous thrombosis. Lymphedema in the lower extremities. Renal Ultrasound 10/26/17 0000 Signed Impressions: Service Date/Time: Thursday, October 26, 2017 20:06 - CONCLUSION: 1. There is some increased echogenicity of the renal parenchyma suggestive of chronic medical renal disease. 2. No evidence of hydronephrosis. 3. Small 1.1 cm cyst upper pole left kidney. Giuseppe Street MD (Sameera Rudd) Physical Exam General Appearance: No Acute Distress (Sameera Rudd) Eyes Eye Exam: Pupils Equal (Sameera Rudd) Throat Throat Exam: Oral Mucosa [place] & Moist (Sameera Rudd) Pulmonary Resp Exam: Rhonchi, Decreased Bases, Diminished Breath Sounds (Sameera Rudd) Cardiology CV Exam: Regular (Sameera Rudd) Gastrointestinal/Abdomen GI Exam: Soft, Non-Tender, Bowel Sounds Present, Distended (Sameera Rudd) Integumentary Skin Exam: Clear, Warm (Sameera Rudd) Extremeties Extremities Exam: Pitting Edema, Dependent Edema Extremeties Remarks lymphedema right leg (Sameera Rudd) Neurologic Neuro Exam: Alert, Awake, Oriented, Obtunded (Sameera Rudd) Psychiatric Psych Exam: Appropriate Responses (Sameera Rudd) Assessment/Plan Assessment Summary: Anemia of CKD, CKD Stage V Electrolyte Assessment: Hyperkalemia Problem List: (1) Chronic kidney disease, stage 4 (severe) ICD Codes: N18.4 - Chronic kidney disease, stage 4 (severe) Plan: Patient has been on dialysis last one was on 10/28 Vas-Cath was removed Creatinine stable at 2.37 potassium at 4.3 Continue lasix BID edema is improving. Continue Diamox Protein corrected calcium at 8.4 will add oral replacement Good urinary output Low potassium diet (2) DM (diabetes mellitus) ICD Codes: E11.9 - DM (diabetes mellitus) Status: Chronic (3) Chronic systolic CHF (congestive heart failure) ICD Codes: I50.22 - Chronic systolic CHF (congestive heart failure) Status: Chronic Plan: Continue lasix (4) Hyperkalemia ICD Codes: E87.5 - Hyperkalemia Status: Acute Plan: Resolved (5) Hypertension ICD Codes: I10 - Hypertension Status: Chronic Plan: Well controlled (6) COPD exacerbation ICD Codes: J44.1 - COPD exacerbation Status: Acute (7) Respiratory distress ICD Codes: R06.00 - Respiratory distress Status: Acute (8) HIV (human immunodeficiency virus infection) ICD Codes: Z21 - HIV (human immunodeficiency virus infection) Status: Chronic (9) PNA (pneumonia) ICD Codes: J18.9 - PNA (pneumonia) Status: Acute (10) Hepatitis C ICD Codes: B19.20 - Hepatitis C Status: Chronic (Sameera Rudd) Problem List: (1) Chronic kidney disease, stage 4 (severe) ICD Codes: N18.4 - Chronic kidney disease, stage 4 (severe) Plan: Patient has been on dialysis last one was on 10/28 Vas-Cath was removed Creatinine stable at 2.37 potassium at 4.3 Continue Lasix BID edema is improving. Continue Diamox Protein corrected calcium at 8.4 will add oral replacement Good urinary output Low potassium diet. Patient seen and examined, agree with above. Breathing is better, started on calcium. Follow BMP. (2) DM (diabetes mellitus) ICD Codes: E11.9 - DM (diabetes mellitus) Status: Chronic (3) Chronic systolic CHF (congestive heart failure) ICD Codes: I50.22 - Chronic systolic CHF (congestive heart failure) Status: Chronic Plan: Continue lasix (4) Hyperkalemia ICD Codes: E87.5 - Hyperkalemia Status: Acute Plan: Resolved (5) Hypertension ICD Codes: I10 - Hypertension Status: Chronic Plan: Well controlled (6) COPD exacerbation ICD Codes: J44.1 - COPD exacerbation Status: Acute (7) Respiratory distress ICD Codes: R06.00 - Respiratory distress Status: Acute (8) HIV (human immunodeficiency virus infection) ICD Codes: Z21 - HIV (human immunodeficiency virus infection) Status: Chronic (9) PNA (pneumonia) ICD Codes: J18.9 - PNA (pneumonia) Status: Acute (10) Hepatitis C ICD Codes: B19.20 - Hepatitis C Status: Chronic (Millicent Ga MD) Sameera Rudd Nov 21, 2017 10:06 Millicent Ga MD Nov 21, 2017 13:52
--- NOTE | 2017-11-21 13:03 | HHI.PR ---
Subjective Remarks On a N/C 4 L Awake and seems to be less SOB.. Less leg edema and scrotal. Objective Vital Signs Date Time Temp Pulse Resp B/P (MAP) Pulse Ox O2 Delivery O2 Flow Rate FiO2 11/21/17 12:01 96 11/21/17 11:01 98.4 100 18 132/88 (103) 97 11/21/17 11:01 97 Nasal Cannula 4.00 11/21/17 11:00 104 11/21/17 10:00 106 11/21/17 09:00 102 11/21/17 08:45 98.7 93 18 134/101 (112) 98 11/21/17 08:45 98 Nasal Cannula 4.00 11/21/17 08:00 92 11/21/17 07:00 96 11/21/17 06:00 92 11/21/17 05:11 98 35 11/21/17 05:00 91 11/21/17 04:00 95 11/21/17 04:00 Nasal Cannula 4.00 11/21/17 04:00 97.5 96 20 145/97 (113) 100 11/21/17 03:00 92 11/21/17 02:00 96 11/21/17 01:11 98 35 11/21/17 01:00 96 11/21/17 00:00 98.3 95 20 133/97 (109) 100 11/21/17 00:00 94 11/21/17 00:00 Nasal Cannula 4.00 11/20/17 23:00 92 11/20/17 22:00 100 11/20/17 21:00 92 11/20/17 20:00 98.3 97 20 144/104 (117) 100 11/20/17 20:00 Nasal Cannula 4.00 11/20/17 20:00 97 11/20/17 19:31 93 Nasal Cannula 3.00 11/20/17 18:00 102 11/20/17 17:00 85 11/20/17 16:00 92 11/20/17 15:00 98.8 93 24 131/78 (95) 98 11/20/17 15:00 98 11/20/17 15:00 98 Nasal Cannula 4.00 11/20/17 14:00 90 I/O 11/20/17 11/20/17 11/20/17 11/21/17 11/21/17 6/7/18 07:00 15:00 23:00 07:00 15:00 23:00 Intake Total 240 ml 780 ml 720 ml Balance 240 ml 780 ml 720 ml Intake Oral 240 ml 780 ml 720 ml # Voids 3 5 3 # Bowel Movements 1 Result Diagram: 11/20/17 1603 11/20/17 1603 Objective Remarks GENERAL: This is a middle aged, obese male who is having 2 + leg edema with induration of the skin of the lower extremities. HEENT: Head is normocephalic. Pupils are reactive. Sclerae were clear. Throat clear. NECK: Supple, no bruits or thyroid enlargement or lymphadenopathy. CHEST: Decreased breath sounds at the bases with wheezes over both lung gomez.Occ basal crackles HEART: Sounds are irregular S1 and S2. No murmur. No S3. ABDOMEN: Soft, protuberant and Bowel sounds are active.edema of scrotum. EXTREMITIES: Lymphedema with pigmentation of the skin of the lower extremities. NEUROLOGIC: He is awake and responds . .Reflexes 1 + Skin is dry. Assessment and Plan Assessment and Plan IMPRESSION: 1. Hypercapnic respiratory failure. 2. Pulmonary edema and right pleural effusion. 3. Acute renal failure. 4. Diabetes mellitus. 5. Anemia. 6. History of human immunodeficiency virus disease. 7. Urinary tract infection and sepsis. 8. Probable pneumonia. Plan : 1. Continue nebs qid , duoneb 2. BIPAP 15/6, FIo2 30 % at HS and PRN daytime 3. Continue antibiotics per ID 4. Up with help 5. Cont Lasix 80 mg IV daily 6. O2 4 L N/C daytime 7. Symbicort 160/4.5 mcg , 2 puffs bid 8. Prednisone 30 mg daily and taper over 3 weeks 9. PT Evaluation. Zahida Brannon MD Nov 21, 2017 13:03
[2017-11-21] MEDS: FONDAPARINUX SODIUM 2.5 MG/0.5 ML SYRINGE SQ SCH (13:16)
[2017-11-21 14:26] LABS: HEPARIN INDUCED PLATELET AB POSITIVE (NEGATIVE)
[2017-11-21] MEDS ORDERED: FOND5.0S SQ (15:56)
[2017-11-21] MEDS: FUROSEMIDE 40 MG/4 ML VIAL IV PUSH SCH (17:00)
--- NOTE | 2017-11-21 17:30 | HHI.PR ---
Subjective Remarks Follow-up of respiratory failure, acute renal failure, and HIV/AIDS. Patient is currently doing well. No acute concerns. No fever, chills. Objective Vitals Vital Signs Date Time Temp Pulse Resp B/P (MAP) Pulse Ox O2 Delivery O2 Flow Rate FiO2 11/21/17 16:30 97 28 11/21/17 15:30 98.6 106 18 112/77 (89) 97 11/21/17 15:30 97 Nasal Cannula 4.00 11/21/17 12:01 96 11/21/17 11:01 98.4 100 18 132/88 (103) 97 11/21/17 11:01 97 Nasal Cannula 4.00 11/21/17 11:00 104 11/21/17 10:00 106 11/21/17 09:00 102 11/21/17 08:45 98.7 93 18 134/101 (112) 98 11/21/17 08:45 98 Nasal Cannula 4.00 11/21/17 08:00 92 11/21/17 07:00 96 11/21/17 06:00 92 11/21/17 05:11 98 35 11/21/17 05:00 91 11/21/17 04:00 95 11/21/17 04:00 Nasal Cannula 4.00 11/21/17 04:00 97.5 96 20 145/97 (113) 100 11/21/17 03:00 92 11/21/17 02:00 96 11/21/17 01:11 98 35 11/21/17 01:00 96 11/21/17 00:00 98.3 95 20 133/97 (109) 100 11/21/17 00:00 94 11/21/17 00:00 Nasal Cannula 4.00 11/20/17 23:00 92 11/20/17 22:00 100 11/20/17 21:00 92 11/20/17 20:00 98.3 97 20 144/104 (117) 100 11/20/17 20:00 Nasal Cannula 4.00 11/20/17 20:00 97 11/20/17 19:31 93 Nasal Cannula 3.00 11/20/17 18:00 102 I/O 6/6/18 6/6/18 6/6/18 6/7/18 6/7/18 6/7/18 07:00 15:00 23:00 07:00 15:00 23:00 Intake Total 240 ml 780 ml 720 ml Balance 240 ml 780 ml 720 ml Intake Oral 240 ml 780 ml 720 ml # Voids 3 5 3 # Bowel Movements 1 Result Diagram: 11/20/17 1603 11/20/17 1603 Objective Remarks GENERAL: Alert, NAD. SKIN: Warm and dry. HEAD: Normocephalic. EYES: No scleral icterus. No injection or drainage. NECK: Supple, trachea midline. No JVD or lymphadenopathy. CARDIOVASCULAR: Regular rate and rhythm without murmurs, gallops, or rubs. RESPIRATORY: Breath sounds equal bilaterally. No accessory muscle use. GASTROINTESTINAL: Abdomen soft, non-tender, nondistended. MUSCULOSKELETAL: No cyanosis. Significant lymphedema present jaison right lower ext. BACK: Nontender without obvious deformity. No CVA tenderness. Procedures 10/27/17 right femoral Vas-Cath placement A/P Assessment and Plan 56 YOAAM with numerous medical problems including HIV, DM, COPD, CKD, HTN, and dilated cardiomyopathy initially admitted 10/26 for respiratory distress and AMS found to be in acute renal failure with critical hyperkalemia. Nephrology has been consulted to managed his renal failure; cardiology to manage his nonischemic dilated cardiomyopathy and wide complex tachyarrhythmias; ID to manage ESBL in urine as well as HIV/AIDS; and pulmonology to assist in management of worsening respiratory status with hypercapnia and hypoxemia. He has been transferred back and forth from the hospitalist service to critical care several times during the course of his hospitalization. He has been awake and alert and on nasal cannula so care has been transferred again to the hospitalist service. Heparin Induced Thrombocytopenia - 4Ts score is intermediate. - Continue Fondaparinux 5mg SC Qday. 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 Will order Serotonin release assay to confirm. - upper or lower ext doppler US negative for DVT. There is a right upper ext partial thrombosis. - Due to high likelihood of HIT and cephalic vein thrombosis, we will treat pt for 3 months. Acute respiratory failure, COPD, CO2 retention - Improved and on nasal cannula - BiPAP as needed - Supplemental O2 PRN - Continue bronchodilators, Symbicort - Continue Prednisone - CXR from 11/15/2017 shows no evidence of pneumonia. - Pulmonology following, appreciate recs. Acute metabolic encephalopathy - Secondary to renal failure - Mental status is improving Cardiomyopathy - Echocardiogram showed ejection fraction of 20% - AICD in place - Continue Coreg - Appreciate cardiology recommendations Acute kidney injury superimposed on chronic kidney disease - Appreciate nephrology recommendations - Required short-term dialysis - Creatinine is improving - Monitor renal function, I/O - Avoid nephrotoxins - Continue supportive care Anemia, likely secondary to chronic disease and acute illness - H&H stable - Continue to monitor UTI - Urine culture growing ESBL positive Klebsiella, s/p treatment with Avycaz - Appreciate infectious disease recommendations HIV/AIDS - Low CD4 count of 14 - ID following - On Atovaquone 1500mg Qday and Azithromycin 1200mg PO Q7 days for prophylaxis. - Avoiding Bactrim secondary to hypokalemia therefore on Atovaquone HTN - Continue Hydralazine and Carvedilol - Clonidine PRN DM - Check A1c - Glucose is not controlled. Continue Levemir to 20 units QHS, add pre-meal Aspart and continue Sliding scale insulin. Agitation - Continue Seroquel BID Full code. Fondaparinux Jaymie Enrique DO Nov 21, 2017 17:30
[2017-11-21] MEDS ORDERED: INSULIN DETEMIR 100 UNITS/ML VIAL SQ SCH (21:00)
[2017-11-21] MEDS ORDERED: CALCIUM CARBONATE 1.25 GM (CA 500 MG) TAB PO SCH (21:00)
[2017-11-21] MEDS ORDERED: ATROPINE SULFATE 1 MG/10 ML SYRINGE ONE (23:33)
[2017-11-21] MEDS ORDERED: EPINEPHrine HCL (1:10,000) 1 MG/10 ML SYRINGE ONE (23:34)
[2017-11-22] MEDS ORDERED: FONDAPARINUX SODIUM 2.5 MG/0.5 ML SYRINGE SQ SCH (14:00)
--- NOTE | 2017-11-23 00:15 | HHI.DS ---
Discharge Summary Admission Date October 26, 2017 at 18:47 Discharge Date: Nov 21, 2017 Admitting Diagnosis hyperkalemia, UTI, acute on chronic renal failure (1) Heparin induced thrombocytopenia (HIT) ICD Code: D75.82 - Heparin induced thrombocytopenia (HIT) (2) DM (diabetes mellitus) ICD Code: E11.9 - DM (diabetes mellitus) Status: Chronic (3) AIDS ICD Code: B20 - AIDS Status: Chronic (4) COPD (chronic obstructive pulmonary disease) ICD Code: J44.9 - COPD (chronic obstructive pulmonary disease) Status: Chronic Procedures 10/27/17 right femoral Vas-Cath placement Brief History - From Admission This is a 56-year-old male who presents to the emergency department for altered mental status and not feeling well. The patient is quite altered and cannot provide any reliable history, and is only mumbling incoherently. He is protecting his airway and on room air, but cannot provide any additional information. Per the emergency department reports and [facility] reports, he has a history of hepatitis B, hepatitis C, COPD, chronic kidney disease of unknown stage, hypertension, CHF. In the emergency department he was found to have a creatinine of 5.08, BUN 65, potassium 7.3, sodium 135. He is afebrile with a normal white count. He is anemic with a hemoglobin of 9.2. Past visits would suggest his baseline creatinine to be between 2.3 and 3.09. He does have a urinalysis which is significant for pyuria with proteinuria and a large amount of bacteria suggestive of a urinary tract infection. On-call medical surgical tech was contacted due to the hyperkalemia and recommended medical management including insulin, D50, Kayexalate, bicarbonate and serial electrolyte's and recommended against emergent dialysis at this time. No additional information is available from the patient. The patient has been in the ICU for acute renal failure with life-threatening electrolyte abnormalities. Review systems is unobtainable due to his clinical condition. The remainder of the history is obtained from review of the medical record. CBC/BMP: 11/20/17 1603 11/20/17 1603 Significant Findings Laboratory Tests Test 11/20/17 14:46 11/20/17 16:03 Heparin-Induced Platelet Ab (Janine) POSITIVE (NEGATIVE) HIPA Patient Optical Density 0.514 O.D. (0.000-0.300) Red Blood Count 3.33 MIL/MM3 (4.50-5.90) Hemoglobin 8.7 GM/DL (13.0-17.0) Hematocrit 29.2 % (39.0-51.0) Mean Corpuscular Hemoglobin 26.1 PG (27.0-34.0) Mean Corpuscular Hemoglobin Concent 29.9 % (32.0-36.0) Red Cell Distribution Width 22.5 % (11.6-17.2) Platelet Count 87 TH/MM3 (150-450) Neutrophils (%) (Auto) 87.8 % (16.0-70.0) Lymphocytes (%) (Auto) 4.3 % (9.0-44.0) Lymphocytes # (Auto) 0.2 TH/MM3 (1.0-4.8) Blood Urea Nitrogen 64 MG/DL (7-18) Creatinine 2.37 MG/DL (0.60-1.30) Random Glucose 194 MG/DL (74-106) Albumin 2.9 GM/DL (3.4-5.0) Calcium Level 7.6 MG/DL (8.5-10.1) Carbon Dioxide Level 34.0 MEQ/L (21.0-32.0) Estimat Glomerular Filtration Rate 34 ML/MIN (>89) Imaging Last Impressions Chest X-Ray 11/21/17 0600 Signed Impressions: CONCLUSION: Stable cardiomegaly with basilar airspace disease and small effusions. Upper Extremity Ultrasound 11/20/17 0000 Signed Impressions: CONCLUSION: 1. Negative for deep venous thrombosis. In the right cephalic vein partially o cclusive thrombus is seen extending from the mid arm through the antecubital fo ssa. Lower Extremity Ultrasound 11/20/17 0000 Signed Impressions: CONCLUSION: 1. Negative for deep venous thrombosis. Lymphedema in the lower extremities. Renal Ultrasound 10/26/17 0000 Signed Impressions: Service Date/Time: Thursday, October 26, 2017 20:06 - CONCLUSION: 1. There is some increased echogenicity of the renal parenchyma suggestive of chronic medical renal disease. 2. No evidence of hydronephrosis. 3. Small 1.1 cm cyst upper pole left kidney. Giuseppe Street MD PE at Discharge GENERAL: Alert, NAD. SKIN: Warm and dry. HEAD: Normocephalic. EYES: No scleral icterus. No injection or drainage. NECK: Supple, trachea midline. No JVD or lymphadenopathy. CARDIOVASCULAR: Regular rate and rhythm without murmurs, gallops, or rubs. RESPIRATORY: Breath sounds equal bilaterally. No accessory muscle use. GASTROINTESTINAL: Abdomen soft, non-tender, nondistended. MUSCULOSKELETAL: No cyanosis. Significant lymphedema present jaison right lower ext. BACK: Nontender without obvious deformity. No CVA tenderness. Pt update on day of discharge Patient is doing well. No acute concerns. No fever, chills. Hospital Course 56 YOAAM with numerous medical problems including HIV, DM, COPD, CKD, HTN, and dilated cardiomyopathy initially admitted 10/26 for respiratory distress and AMS found to be in acute renal failure with critical hyperkalemia. Nephrology has been consulted to managed his renal failure; cardiology to manage his nonischemic dilated cardiomyopathy and wide complex tachyarrhythmias; ID to manage ESBL in urine as well as HIV/AIDS; and pulmonology to assist in management of worsening respiratory status with hypercapnia and hypoxemia. He has been transferred back and forth from the hospitalist service to critical care several times during the course of his hospitalization. He has been awake and alert and on nasal cannula so care has been transferred again to the hospitalist service. Heparin Induced Thrombocytopenia - 4Ts score is intermediate. - Continue Fondaparinux 5mg SC Qday. 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 Will order Serotonin release assay to confirm. - upper or lower ext doppler US negative for DVT. There is a right upper ext partial thrombosis. - Due to high likelihood of HIT and cephalic vein thrombosis, we will treat pt for 3 months. Acute respiratory failure, COPD, CO2 retention - Improved and on nasal cannula - BiPAP as needed - Supplemental O2 PRN - Continue bronchodilators, Symbicort - Continue Prednisone - CXR from 11/15/2017 shows no evidence of pneumonia. - Pulmonology following, appreciate recs. Acute metabolic encephalopathy - Secondary to renal failure - Mental status is improving Cardiomyopathy - Echocardiogram showed ejection fraction of 20% - AICD in place - Continue Coreg - Appreciate cardiology recommendations Acute kidney injury superimposed on chronic kidney disease - Appreciate nephrology recommendations - Required short-term dialysis - Creatinine is improving - Monitor renal function, I/O - Avoid nephrotoxins - Continue supportive care Anemia, likely secondary to chronic disease and acute illness - H&H stable - Continue to monitor UTI - Urine culture growing ESBL positive Klebsiella, s/p treatment with Avycaz - Appreciate infectious disease recommendations HIV/AIDS - Low CD4 count of 14 - ID following - On Atovaquone 1500mg Qday and Azithromycin 1200mg PO Q7 days for prophylaxis. - Avoiding Bactrim secondary to hypokalemia therefore on Atovaquone HTN - Continue Hydralazine and Carvedilol - Clonidine PRN DM - Check A1c - Glucose is not controlled. Continue Levemir to 20 units QHS, add pre-meal Aspart and continue Sliding scale insulin. Agitation - Continue Seroquel BID Full code. Fondaparinux Pt Condition on Discharge: Good Discharge Disposition: Discharge to SNF Discharge Time: > 30 minutes Discharge Instructions DIET: Follow Instructions for: Diabetic Diet Activities you can perform: Regular-No Restrictions Follow up Referrals: PCP Follow-up - 1 Week New Orders: CBC WITH DIFF - 3-5 Days New Medications: Fondaparinux Inj (Fondaparinux Inj) 5 Mg/0.4 Ml Syr 5 MG SQ Q24H for Blood Clot Prevention, #30 SYRINGE 2 Refills Insulin Aspart Inj (Novolog Inj) 1,000 Unit/10 Ml Vial 1-9 UNITS SQ ACHS for Blood Sugar Management, #10 ML 0 Refills Max dose at bedtime:( )units; sugars less than 70,(0)units; sugars 150-199,(1) unit; sugars 200-249,(3) units; sugars 250-299,(5) units; sugars 300-349,(7) units; sugars greater than 349,(9) units Amlodipine (Norvasc) 5 Mg Tab 5 MG PO DAILY for Blood Pressure Management, #30 TAB 3 Refills Atovaquone Liq (Mepron Liq) 750 Mg/5 Ml Susp 1500 MG PO DAILY for Infection, #30 BOTTLE 3 Refills Azithromycin (Azithromycin) 600 Mg Tab 1200 MG PO Q7D for Infection, #12 TAB 3 Refills Carvedilol (Coreg) 12.5 Mg Tab 12.5 MG PO Q12HR for Heart, #60 TAB 3 Refills Hydralazine HCl (Hydralazine HCl) 25 Mg Tablet 25 MG PO Q8HR for Blood Pressure Management, #90 TAB 3 Refills Insulin Aspart Inj (Novolog Inj) 1,000 Unit/10 Ml Vial 5 UNITS SQ TIDAC for Blood Sugar Management for 30 Days, INJECTION Hold if pre-meal glucose < 110 Oxycodone (Oxycodone) 10 Mg Tab 5 MG PO Q6HR PRN for PAIN 6-10, #15 TAB Changed Medications: Insulin Glargine (Basaglar Kwikpen) 100 Unit/Ml Pen 20 UNITS SQ HS for Blood Sugar Management, #5 PEN 0 Refills (Changed from: 25 UNITS) Continued Medications: Albuterol 18 GM Inh (Ventolin Hfa 18 GM Inh) 90 Mcg/Act Aer 1 PUFF INH Q6H PRN for SHORTNESS OF BREATH, #1 INHALER 0 Refills Ascorbic Acid (Ascorbic Acid) 500 Mg Tab 500 MG PO BID, TAB Bumetanide (Bumetanide) 1 Mg Tab 1 MG PO DAILY, #30 TAB 0 Refills Chlorhexidine Gluconate (Mouth) Liq (Chlorhexidine Gluconate (Mouth) Liq) 0.12% Soln 15 ML SWISH-SPIT BID, #473 ML 0 Refills Etravirine (Intelence) 200 Mg Tab 200 MG PO BID for Mgmt Viral Infection, TAB 0 Refills Famotidine (Famotidine) 20 Mg Tab 20 MG PO DAILY, #60 TAB 0 Refills Gabapentin (Gabapentin) 100 Mg Cap 200 MG PO Q8HR, #60 CAP 0 Refills Ipratropium-Albuterol Neb (Duoneb) 0.5-2.5 Mg/3 Ml Neb 1 NEBULE INH Q6HR NEB for Breathing Treatment, #120 NEBULE 0 Refills Levothyroxine (Levothyroxine) 50 Mcg Tab 50 MCG PO DAILY for Thyroid, #30 TAB 0 Refills Magnesium Hydroxide Liq (Milk of Magnesia Liq) 400 Mg/5 Ml Susp 30 ML PO DAILY PRN for INDIGESTION OR UPSET STOMACH, #1 BOTTLE 0 Refills Multiple Vitamin (Multiple Vitamin) 1 Tab 1 TAB PO DAILY for Nutritional Supplement, TAB 0 Refills Quetiapine (Seroquel) 25 Mg Tab 25 MG PO BID, #60 TAB 0 Refills Raltegravir (Isentress) 400 Mg Tab 400 MG PO BID for Mgmt Viral Infection, #60 TAB 0 Refills Ritonavir (Norvir) 100 Mg Cap 100 MG PO DAILY for Mgmt Viral Infection, #180 CAP 0 Refills Tiotropium Inh (Spiriva Handihaler) 18 Mcg Cap 18 MCG INH DAILY for COPD, #30 CAP 0 Refills 1 capsule = 18 mcg Discontinued Medications: Ciprofloxacin (Cipro) 500 Mg Tab 500 MG PO Q12HR for Infection, TAB 0 Refills Hydrocodone-Acetaminophen ([place]) 5 Mg-325 Mg Tab 1 TAB PO Q4H PRN for PAIN, TAB 0 Refills Hydromorphone (Dilaudid) 2 Mg Tab 2 MG PO Q6H PRN for Pain Management, TAB 0 Refills Jaymie Enrique DO Nov 23, 2017 00:15
== END 2017-11-21 18:07 | DRG 682 ==
LOC: NEPC 14:11 → NEDA 18:47 → HIME 20:35 → HCIS 11-02 22:47 → HIME 11-04 13:55 → HCIS 11-06 15:02 → N07A 11-08 19:42 → HIMN 11-09 13:35 → HCIS 11-18 15:41
PROVIDERS: ADMIT Hospitalist; ATTEND Hospitalist
PROC: 5A1D70Z Performance of Urinary Filtration, Intermittent, Less than 6 Hours Per Day (ICD-10-PCS; principal; 2017-10-27)
PROC: 5A09357 Assistance with Respiratory Ventilation, Less than 24 Consecutive Hours, Continuous Positive Airway Pressure (ICD-10-PCS; 2017-10-27)
PROC: 02HV33Z Insertion of Infusion Device into Superior Vena Cava, Percutaneous Approach (ICD-10-PCS; 2017-10-27)
DX: N17.9 Acute kidney failure, unspecified (principal); J96.01 Acute respiratory failure with hypoxia; B20 Human immunodeficiency virus [HIV] disease; G93.41 Metabolic encephalopathy; A41.9 Sepsis, unspecified organism; I47.2 Ventricular tachycardia; J96.02 Acute respiratory failure with hypercapnia; N18.4 Chronic kidney disease, stage 4 (severe); I13.0 Hypertensive heart and chronic kidney disease with heart failure and stage 1 through stage 4 chronic kidney disease, or unspecified chronic kidney disease; J18.9 Pneumonia, unspecified organism; I50.22 Chronic systolic (congestive) heart failure; B19.10 Unspecified viral hepatitis B without hepatic coma; I42.0 Dilated cardiomyopathy; N39.0 Urinary tract infection, site not specified; I47.1 Supraventricular tachycardia; J44.0 Chronic obstructive pulmonary disease with (acute) lower respiratory infection; J44.1 Chronic obstructive pulmonary disease with (acute) exacerbation; E87.2 Acidosis; J98.11 Atelectasis; I82.611 Acute embolism and thrombosis of superficial veins of right upper extremity; E87.5 Hyperkalemia; E11.22 Type 2 diabetes mellitus with diabetic chronic kidney disease; I27.20 Pulmonary hypertension, unspecified; E11.649 Type 2 diabetes mellitus with hypoglycemia without coma; E11.65 Type 2 diabetes mellitus with hyperglycemia; D75.82 Heparin induced thrombocytopenia (HIT); E83.51 Hypocalcemia; B96.1 Klebsiella pneumoniae [K. pneumoniae] as the cause of diseases classified elsewhere; Z16.24 Resistance to multiple antibiotics; N27.1 Small kidney, bilateral; B19.20 Unspecified viral hepatitis C without hepatic coma; M06.9 Rheumatoid arthritis, unspecified; F32.9 Major depressive disorder, single episode, unspecified; I25.10 Atherosclerotic heart disease of native coronary artery without angina pectoris; K21.9 Gastro-esophageal reflux disease without esophagitis; I89.0 Lymphedema, not elsewhere classified; D63.1 Anemia in chronic kidney disease; G89.29 Other chronic pain; M54.9 Dorsalgia, unspecified; G47.33 Obstructive sleep apnea (adult) (pediatric); F40.240 Claustrophobia; T38.0X5A Adverse effect of glucocorticoids and synthetic analogues, initial encounter; E03.9 Hypothyroidism, unspecified; Z92.21 Personal history of antineoplastic chemotherapy; I25.2 Old myocardial infarction; Z85.72 Personal history of non-Hodgkin lymphomas; Z79.4 Long term (current) use of insulin; Z72.0 Tobacco use; Z92.3 Personal history of irradiation; Z95.810 Presence of automatic (implantable) cardiac defibrillator; Z91.19 Patient's noncompliance with other medical treatment and regimen
CPT/HCPCS: 36011; 36556; 36600; 71045; 76775; 76937; 80048; 80053; 80069; 80074; 80202; 80307; 81001; 82140; 82550; 82570; 82805; 82948; 83036; 83605; 83615; 83735; 83880; 84100; 84132; 84155; 84300; 84484; 85007; 85025; 85027; 85610; 86022; 86355; 86357; 86359; 86360; 87040; 87077; 87086; 87147; 87186; 87205; 87493; 87536; 87641; 90935; 93005; 93306; 93970; 94002; 94003; 94150; 94640; 94664; 94667; 94668; 96365; 96374; 96375; J0171; J0360; J0461; J0610; J0696; J0714; J1120; J1335; J1580; J1644; J1652; J1815; J1940; J2060; J2185; J2270; J2543; J2920; J2930; J3370; J7030; J7040; J7070; J7512; P9612; Q4081

== ENCOUNTER 2017-11-26 01:09 | Inpatient (IN) | payer MEDICARE, OTHER ==
[2017-11-26] VITALS (29 sets, daily range): BP systolic 88–149; BP diastolic 50–96; PULSE 76–95; RESP 11–25; TEMP 97–98.4; O2SAT 97–100
[~2017-11-26] VITALS: Ht 180.3 cm; Wt 143.6 kg
[~2017-11-26 01:09] MED LIST changes: +AMLO5 PO; +ASCO500T PO; -ASPI-183 PO; +ATOV750UDC PO; -AZIT200S PO; +AZIT600T PO; +BUME1TAB PO; -BUME2TAB PO; +CARV12.5 PO; +CHLO.12%30 SWISH-SPIT; -DOLU1TAB PO; +FAMO20TA2 PO; +FOND5.0S SQ; +GABA100C4 PO; +HYDR-3799 PO; +INSU1INJ18 SQ; +INTE200T2 PO; +IPRASOL INH; -LEVEMIR SQ; +LEVO50TA4 PO; -METO-309 PO; +MILKSUS PO; +MULTTAB67 PO; +NOVOLOGP2 SQ; +OXYC-395 PO; -PRED20 PO; +RALT400 PO; +RITO100 PO; +SERO25TA PO; +SPIRCAP INH; -TRUVTAB2 PO; +VENTAER INH; -WALKER WHEELS/F1 MIS
--- NOTE | 2017-11-26 01:43 | PD ---
HPI Chief Complaint: Respiratory Symptoms Time Seen by Provider: 01:19 Travel History International Travel<30 days: No Contact w/Intl Traveler<30days: No Traveled to known affect area: No History of Present Illness HPI The patient is a 56 year old male who presents to the [facility] emergency department with a history of shortness of breath that had been progressively getting worse over the last 24 hours. The patient is currently a resident at [facility]. According to ambulance service, the patient was on hospice which was recently revoked. They are unsure who revoked the patient's hospice. The patient has a prior history of COPD requiring nasal CPAP, HIV, hepatitis, and MRSA. Upon ambulance services arrival the patient was noted to be tachypneic with a rate in the 40s, O2 saturations were reportedly at 90% on nasal CPAP. The patient's GCS was diminished to 9 whereas the patient's normal GCS is 15. The patient was prepped for intubation. Prior to intubation the patient was noted to have scattered rhonchi. The patient was provided Versed 4 mg IV, etomidate 20 mg IV and intubated with an endotracheal tube, size 7-1/2. The patient had an OG tube placed. The patient was given normal saline 1500 mL in route to this facility. The patient's blood sugar was noted to be 113 prior to arrival. On arrival, the patient does not have any spontaneous respiratory activity noted. No other history is able to be obtained from the patient regarding his review of systems as he is currently intubated. The patient arrives with a GCS of 3. The patient's history is obtained from reviewing the electronic medical record and the patient's retirement record. [facility] Past Medical History Narrative Medical The patient's past medical history is significant for rheumatoid arthritis, HIV , depression, coronary artery disease, lymphoma, chronic lymphedema, history of diabetes mellitus, COPD, congestive heart failure, acid reflux, hepatitis, hypertension, sleep apnea, prior history of myocardial infarction. Arthritis: Yes (RA) Asthma: No Autoimmune Disease: Yes (HIV) Blood Disorders: No Anxiety: No Depression: Yes Heart Rhythm Problems: Yes (HAS BEEN TOLD HE NEEDS A "DEFIBRILLATOR" AND "STENTS") Cancer: Yes (LYMPHOMA;CHORNIC LYMPHEDEMA) Cardiovascular Problems: Yes High Cholesterol: No Chemotherapy: Yes Chest Pain: Yes Congestive Heart Failure: Yes COPD: Yes Cerebrovascular Accident: No Coronary Artery Disease: Yes Diabetes: Yes Diminished Hearing: No Endocrine: No Gastrointestinal Disorders: Yes GERD: Yes Glaucoma: No Genitourinary: Yes Headaches: No Hepatitis: Yes Hiatal Hernia: No Heparin Induced Thrombocytopen: No Hypertension: Yes Immune Disorder: Yes (HIV/AIDS) Implanted Vascular Access Dvce: No Kidney Stones: No Musculoskeletal: No Neurologic: No Psychiatric: No Reproductive: No Respiratory: Yes Immunizations Current: No Migraines: No Myocardial Infarction: Yes Radiation Therapy: No Renal Failure: No Seizures: No Sickle Cell Disease: No Sleep Apnea: Yes Thyroid Disease: Yes Ulcer: No Past Surgical History Narrative Surgical The patient's past surgical history is significant for oral surgery, graft to the right upper leg. Abdominal Surgery: No AICD: No Appendectomy: No Arteriovenous Shunt: No Cardiac Surgery: Yes Cholecystectomy: No Ear Surgery: No Endocrine Surgery: No Eye Surgery: No Genitourinary Surgery: No Gynecologic Surgery: No Insulin Pump: No Joint Replacement: No Neurologic Surgery: No Oral Surgery: Yes Pacemaker: No Thoracic Surgery: No Other Surgery: Yes ( GRAFT R. UPPER LEG) Social History Alcohol Use: No Tobacco Use: No Substance Use: Yes (cocaine, marijuana) Allergies-Medications (Allergen,Severity, Reaction): Coded Allergies: benazepril (Unverified Allergy, Severe, SWELLING MOUTH ,TONGUE, 11/26/17) captopril (Unverified Allergy, Severe, SWELLING MOUTH ,TONGUE, 11/26/17) enalaprilat (Unverified Allergy, Severe, SWELLING MOUTH ,TONGUE, 11/26/17) fosinopril (Unverified Allergy, Severe, SWELLING MOUTH ,TONGUE, 11/26/17) lisinopril (Unverified Allergy, Severe, SWELLING MOUTH ,TONGUE, 11/26/17) quinapril (Unverified Allergy, Severe, SWELLING MOUTH ,TONGUE, 11/26/17) Reported Meds & Prescriptions Reported Meds & Active Scripts Active Fondaparinux Inj (Fondaparinux) 5 Mg/0.4 Ml Syr 5 Mg SQ Q24H Oxycodone (Oxycodone HCl) 10 Mg Tab 5 Mg PO Q6HR PRN Novolog Inj (Insulin Aspart) 1,000 Unit/10 Ml Vial 1-9 Units SQ ACHS Max dose at bedtime:( )units; sugars less than 70,(0)units; sugars 150-199,(1) unit; sugars 200-249,(3) units; sugars 250-299,(5) units; sugars 300-349,(7) units; sugars greater than 349,(9) units Novolog Inj (Insulin Aspart) 1,000 Unit/10 Ml Vial 5 Units SQ TIDAC 30 Days Hold if pre-meal glucose < 110 Norvasc (Amlodipine Besylate) 5 Mg Tab 5 Mg PO DAILY Coreg (Carvedilol) 12.5 Mg Tab 12.5 Mg PO Q12HR Hydralazine HCl 25 Mg Tablet 25 Mg PO Q8HR Mepron Liq (Atovaquone) 750 Mg/5 Ml Susp 1,500 Mg PO DAILY Azithromycin 600 Mg Tab 1,200 Mg PO Q7D Basaglar Kwikpen (Insulin Glargine) 100 Unit/Ml Pen 20 Units SQ HS Reported Morphine Sulfate 30 Mg/30 Ml (1 Mg/Ml) Broomcorn Grader.syring Duoneb (Ipratropium-Albuterol Neb) 0.5-2.5 Mg/3 Ml Neb 1 Nebule INH Q6HR NEB Ativan (Lorazepam) 1 Mg Tab 1 Mg PO Q4H PRN Duoneb (Ipratropium-Albuterol Neb) 0.5-2.5 Mg/3 Ml Neb 1 Nebule INH Q6HR NEB Milk of Magnesia Liq (Magnesium Hydroxide) 400 Mg/5 Ml Susp 30 Ml PO DAILY PRN Chlorhexidine Gluconate (Mouth) Liq (Chlorhexidine Gluconate) 0.12% Soln 15 Ml SWISH-SPIT BID Gabapentin 100 Mg Cap 200 Mg PO Q8HR Levothyroxine (Levothyroxine Sodium) 50 Mcg Tab 50 Mcg PO DAILY Norvir (Ritonavir) 100 Mg Cap 100 Mg PO DAILY Famotidine 20 Mg Tab 20 Mg PO DAILY Bumetanide 1 Mg Tab 1 Mg PO DAILY Spiriva Handihaler (Tiotropium Inh) 18 Mcg Cap 18 Mcg INH DAILY 1 capsule = 18 mcg Intelence (Etravirine) 200 Mg Tab 200 Mg PO BID Isentress (Raltegravir) 400 Mg Tab 400 Mg PO BID Ventolin Hfa 18 GM Inh (Albuterol Sulfate) 90 Mcg/Act Aer 1 Puff INH Q6H PRN Seroquel (Quetiapine Fumarate) 25 Mg Tab 25 Mg PO BID Ascorbic Acid 500 Mg Tab 500 Mg PO BID Multiple Vitamin 1 Tab 1 Tab PO DAILY Review of Systems ROS Limitations: Intubated Cardiovascular: Positive: Dyspnea on exertion Respiratory: Positive: Shortness of Breath Neurologic: Positive: Change in Mentation Physical Exam Narrative General: The patient is a well-developed well-nourished male, arrives with a GCS of 3, being bagged by ambulance services to an endotracheal tube. Head and Neck exam: Head is normocephalic atraumatic. Eyes: Extraocular motion testing is unable to be accomplished in this patient who arrives unresponsive. The patient's pupils are 3 mm and reactive to light. Nose: Midline septum with pink mucous membranes Mouth: Dentition unremarkable. Tacky mucous membranes. Posterior oropharynx is not able to be fully visualized as the patient arrives with an endotracheal tube and OG tube in place. Neck: No palpable lymphadenopathy. No nuchal rigidity. No thyromegaly. Cardiovascular: Regular rate and rhythm without murmurs, gallops, or rubs. No pulse deficit to the extremities and simultaneous auscultation and palpation of his radial artery. Along the upper chest in the midline the patient has a healed wound with sutures in place. No signs of infection at the site. Lungs: Scattered rhonchi are audible throughout bilateral lung gomez. No wheezes or crackles are auscultated. Diminished breath sounds in bilateral lung bases. Abdomen: Soft, without tenderness to palpation in all 4 quadrants of the abdomen. The patient has abdominal distention related to central obesity. The patient has hyperpigmentation of the skin along the lower abdomen with some erythema to the skin underlying the abdominal pannus. No guarding, rebound, or rigidity. Normal bowel sounds are audible. The patient has a diaper in place. No Wang catheter noted. Extremities: The patient has chronic lymphedema noted to bilateral lower extremities. 2+ pulses in all 4 extremities. Back: No costovertebral angle tenderness to palpation. Neurologic Exam: GCS of 3 on arrival. Skin Exam: No rash noted. Intact skin that is warm and dry. Data Data Last Documented VS Vital Signs Date Time Temp Pulse Resp B/P (MAP) Pulse Ox O2 Delivery O2 Flow Rate FiO2 11/26/17 02:31 81 18 115/74 (88) 100 45 11/26/17 01:54 97.7 Orders Orders Electrocardiogram (11/26/17:19) Complete Blood Count With Diff (11/26/17:) Comprehensive Metabolic Panel (11/26/17:) Creatine Kinase (Cpk) (11/26/17:19) Ckmb (Isoenzyme) Profile (11/26/17:) B-Type Natriuretic Peptide (11/26/17) Prothrombin Time / Inr (Pt) (11/26/17) Act Partial Throm Time (Ptt) (11/26/17) Blood Culture (11/26/17) C-Reactive Protein (Crp) (11/26/17) Lipase (11/26/17) Urinalysis - C+S If Indicated (11/26/17) Magnesium (Mg) (11/26/17) Thyroid Stimulating Hormone (11/26/17) Chest, Single Ap (11/26/17:) Iv Access Insert/Monitor (11/26/17:) Ecg Monitoring (11/26/17:) Oximetry (11/26/17:) Urinary Catheter Insert/Apply (11/26/17:) Lactic Acid Sepsis Protocol (11/26/17:) ^ Orogastric Tube (11/26/17 01:22) Arterial Blood Gas (Abg) (11/26/17 ) Sodium Chlorid 0.9% 500 Ml Inj (Ns 500 M (11/26/17 01:45) Piperacil-Tazo 3.375 Gm Premix (Zosyn 3. (11/26/17 01:45) Vancomycin Inj (Vancomycin Inj) (11/26/17 01:45) Urine Culture (11/26/17 01:30) Propofol 1000 Mg/100 Ml Inj (Diprivan 10 (11/26/17 02:15) Amlodipine (Norvasc) (11/26/17 09:00) Ascorbic Acid (Vitamin C) (11/26/17 09:00) Atovaquone Liq (Mepron Liq) (11/26/17 09:00) Azithromycin (Zithromax) (11/26/17 06:00) Bumetanide (Bumetanide) (11/26/17 09:00) Carvedilol (Coreg) (11/26/17 09:00) Famotidine (Pepcid) (11/26/17 09:00) Fondaparinux Inj (Arixtra Inj) (11/26/17 06:00) Gabapentin (Neurontin) (11/26/17 06:00) Hydralazine (Apresoline) (11/26/17 06:00) Levothyroxine (Synthroid) (11/26/17 09:00) Lorazepam (Ativan) (11/26/17 02:30) Magnesium Hydroxide Liq (Milk Of Magnesi (11/26/17 02:30) Quetiapine (Seroquel) (11/26/17 09:00) Raltegravir (Isentress) (11/26/17 09:00) Ritonavir (Norvir) (11/26/17 09:00) Tiotropium Inh (Spiriva Inh) (11/26/17 09:00) Etravirine (Intelence) (11/26/17 09:00) Multivitamin (Theragran) (11/26/17 09:00) Admit To Inpatient (11/26/17 ) Code Status (11/26/17 02:32) Vital Signs (Adult) VERA.Q1H (11/26/17 02:32) Activity Bed Rest (11/26/17 02:32) Elevate Head Of Bed (11/26/17 02:32) Neuro Checks . ORDERED (11/26/17 02:32) Intake + Output Q1H (11/26/17 02:32) Diet Tube Feed Only (11/26/17 Breakfast) Sodium Chlor 0.9% 1000 Ml Inj (Ns 1000 M (11/26/17 02:32) Sodium Chloride 0.9% Flush (Ns Flush) (11/26/17 02:45) Sodium Chloride 0.9% Flush (Ns Flush) (11/26/17 09:00) Acetaminophen (Tylenol) (11/26/17 02:45) Midazolam Inj (Versed Inj) (11/26/17 02:45) Artificial Tears Opth Soln (Tears Natura (11/26/17 09:00) Albuterol-Ipratropium Neb (Duoneb Neb) (11/26/17 04:00) Albuterol-Ipratropium Neb (Duoneb Neb) (11/26/17 02:45) Complete Blood Count With Diff (11/27/17 04:00) Comprehensive Metabolic Panel (11/27/17 04:00) Troponin I (11/26/17 02:32) Troponin I (11/26/17 08:32) Act Partial Throm Time (Ptt) (11/27/17 04:00) Prothrombin Time / Inr (Pt) (11/27/17 04:00) Magnesium (Mg) (11/27/17 04:00) Phosphorus (Po4) (11/27/17 04:00) Sputum Culture And Gram Stain (11/26/17 02:32) Urine Culture (11/26/17 02:32) Chest, Single Ap (11/27/17 ) Consult Infectious Disease (11/26/17 ) Gas Operator / Telemetry VERA.Q8H (11/26/17 02:32) Scd Bilateral/Knee High VERA.BID (11/26/17 02:32) Nba Bilateral/Knee High VERA.QSHIFT (11/26/17 02:32) ^ Initiate Protocol (11/26/17 02:32) Instruction (11/26/17 02:32) Nursing Information ([facility] [place] [facility] Inform (11/26/17 02:45) Chlorhexidine 2% Cloth (Chlorhexidine 2% (11/26/17 04:00) Chlorhexidine 2% Cloth (Chlorhexidine 2% (11/26/17 02:45) Mrsa Pcr Surveillance (11/26/17 02:32) Docusate Sodium-Senna (Angella-Colace) (11/26/17 09:00) Magnesium Hydroxide Liq (Milk Of Magnesi (11/26/17 02:45) Sennosides (Senokot) (11/26/17 02:45) Bisacodyl Supp (Dulcolax Supp) (11/26/17 02:45) Lactulose Liq (Lactulose Liq) (11/26/17 02:45) Elevate Head Of Bed (11/26/17 02:32) Chlorhexidine 0.12% Liq (Peridex 0.12% L (11/26/17 08:00) Oral Hygiene Kit (11/26/17 02:45) Restraints Non-Violent VERA.Q3H (11/26/17 02:32) Ventilator Weaning Readiness VERA.DAILY@0800 (11/26/17 02:32) Propofol 1000 Mg/100 Ml Inj (Diprivan 10 (11/26/17 02:45) Inpatient Certification (11/26/17 ) Tube Feeding 08,20 (11/26/17 02:32) Labs Laboratory Tests Test 11/26/17 01:30 11/26/17 01:52 White Blood Count 2.7 TH/MM3 Red Blood Count 2.75 MIL/MM3 Hemoglobin 7.2 GM/DL Hematocrit 24.4 % Mean Corpuscular Volume 88.6 FL Mean Corpuscular Hemoglobin 26.1 PG Mean Corpuscular Hemoglobin Concent 29.4 % Red Cell Distribution Width 22.6 % Platelet Count 84 TH/MM3 Mean Platelet Volume 8.0 FL Neutrophils (%) (Auto) 68.4 % Lymphocytes (%) (Auto) 15.5 % Monocytes (%) (Auto) 13.4 % Eosinophils (%) (Auto) 2.1 % Basophils (%) (Auto) 0.6 % Neutrophils # (Auto) 1.8 TH/MM3 Lymphocytes # (Auto) 0.4 TH/MM3 Monocytes # (Auto) 0.4 TH/MM3 Eosinophils # (Auto) 0.1 TH/MM3 Basophils # (Auto) 0.0 TH/MM3 CBC Comment AUTO DIFF Differential Comment AUTO DIFF CONFIRMED Platelet Estimate LOW Platelet Morphology Comment NORMAL Basophilic Stippling FAINT Ovalocytes 1+ Stomatocytes 2+ Prothrombin Time 12.8 SEC Prothromb Time International Ratio 1.3 RATIO Activated Partial Thromboplast Time 33.2 SEC Urine Color DARK-YELLOW Urine Turbidity HAZY Urine pH 5.0 Urine Specific [place] 1.024 Urine Protein 30 mg/dL Urine Glucose (UA) NEG mg/dL Urine Ketones TRACE mg/dL Urine Occult Blood NEG Urine Nitrite NEG Urine Bilirubin NEG Urine Urobilinogen 2.0 MG/DL Urine Leukocyte Esterase SMALL Urine RBC 2 /hpf Urine WBC 8 /hpf Urine Squamous Epithelial Cells 3 /hpf Urine Amorphous Sediment RARE Urine Bacteria MANY /hpf Urine Hyaline Casts 3 /lpf Urine Mucus FEW /lpf Microscopic Urinalysis Comment CULTURE INDICATED Blood Urea Nitrogen 55 MG/DL Creatinine 3.47 MG/DL Random Glucose 98 MG/DL Total Protein 5.4 GM/DL Albumin 2.2 GM/DL Calcium Level 7.3 MG/DL Magnesium Level 2.0 MG/DL Alkaline Phosphatase 51 U/L Aspartate Amino Transf (AST/SGOT) 13 U/L Alanine Aminotransferase (ALT/SGPT) 20 U/L Total Bilirubin 0.8 MG/DL Sodium Level 145 MEQ/L Potassium Level 5.1 MEQ/L Chloride Level 106 MEQ/L Carbon Dioxide Level 33.1 MEQ/L Anion Gap 6 MEQ/L Estimat Glomerular Filtration Rate 22 ML/MIN Lactic Acid Level 1.2 mmol/L Protein Corrected Calcium 8.2 MG/DL Total Creatine Kinase 22 U/L Troponin I 0.13 NG/ML C-Reactive Protein 9.16 MG/DL B-Type Natriuretic Peptide 505 PG/ML Lipase 35 U/L Thyroid Stimulating Hormone 3rd Gen 2.470 uIU/ML Urine Opiates Screen NEG Urine Barbiturates Screen NEG Urine Amphetamines Screen NEG Urine Benzodiazepines Screen NEG Urine Cocaine Screen NEG Urine Cannabinoids Screen NEG Blood Gas Puncture Site RT RADIAL Blood Gas Patient Temperature 98.6 Blood Gas HCO3 32 mmol/L Blood Gas Base Excess 6.3 mmol/L Blood Gas Oxygen Saturation 98 % Arterial Blood pH 7.33 Arterial Blood Partial Pressure CO2 62 mmHg Arterial Blood Partial Pressure O2 388 mmHG Arterial Blood Oxygen Content 11.0 Vol % Arterial Blood Carboxyhemoglobin 2.9 % Arterial Blood Methemoglobin 0.4 % Blood Gas Hemoglobin 7.3 G/DL Oxygen Delivery Device VENT Blood Gas Ventilator Setting 14/500/5 Blood Gas Inspired Oxygen 100 % [facility] Medical Decision Making Medical Screen Exam Complete: Yes Emergency Medical Condition: Yes Medical Record Reviewed: Yes Differential Diagnosis Hypercapnic respiratory failure, versus congestive heart failure exacerbation with respiratory failure, versus acute coronary syndrome, versus COPD exacerbation Narrative Course During the course of the patient's emergency department visit, the patient was placed on a threat monitoring analyst with oximetry and frequent blood pressure monitoring. The patient had IV access obtained and blood work sent for analysis. Patient had a EKG done on arrival that shows a sinus rhythm with occasional ventricular premature complexes, QRS duration is 113 ms, QTC [address] segment elevation is noted. T waves are inverted in V3, V4, V5, V6. Blood cultures 2 were drawn. A lactic acid was sent for analysis. The patient was initially provided normal saline at 500 mL bolus. The patient was noted on broad-spectrum antibiotic coverage due to his suspicion for sepsis which included Zosyn and vancomycin. The patient had his OG tube placed to low intermittent suction. A Wang catheter was placed to gravity. The patient was started on propofol for sedation on the ventilator. The patient's laboratory studies were reviewed and remarkable for a white count of 2.7 consistent with the patient's immunocompromise state, hemoglobin 7.2 which is compared to the patient's prior hemoglobin at this facility and his prior hemoglobin was 8.7 on November 22. Platelets are 84 in a patient with a history of thrombocytopenia, monocytes 13.4 CMP is remarkable for CO2 of 33.1, BUN 55, creatinine 3.47, calcium 7.3, lactic acid 1.2, AST 13, CPK 22, troponin I 0.13 which is likely elevated related to the patient's renal insufficiency, however this will be monitored, BNP is 505, lipase 35, PT 12.8, PTT 32.2 Radiology studies were reviewed and remarkable for Last Impressions Chest X-Ray 11/26/17 0119 Signed Impressions: CONCLUSION: Endotracheal tube and nasogastric tube now in place. No other significant inter mee change with persistent bilateral lower lung zone parenchymal opacity. An ABG was done which reveals a pH of 7.33, PCO2 62, PO2 388, bicarb 32 this is on vent settings of FiO2 of 100%, respiratory rate 14, tidal volume 500, PEEP of 5. The patient's ventilatory settings were altered to decrease his FiO2 and increase his respiratory rate. The patient was admitted to the hospital in critical condition and sent to a bed under the care of the betting agency manager service. Critical Care Narrative Aggregate critical care time was 36 minutes. Time to perform other separately billable procedures was not included in the critical care time. My time did not include minutes spent treating any other patients simultaneously or on activities that did not directly contribute to the patient's treatment. The services I provided to this patient were to treat and/or prevent clinically significant deterioration that could result in: Progression of hypercapnia, versus cardiovascular collapse from sepsis, versus fluid overload from crystalloid resuscitation I provided critical care services requiring my management, as noted below: Chart data review, documentation time, medication orders and management, vital sign assessments/reviewing monitor data, ordering and reviewing lab tests, ordering and interpreting/reviewing x-rays and diagnostic studies, care of the patient and discussion of the patient with the admitting physicians. Physician Communication Physician Communication The patient's case including history, pertinent physical examination findings, and laboratory studies were discussed with Dr. Hernandez. It was agreed that the patient would be admitted to the the betting agency manager's service Diagnosis Primary Impression: Respiratory failure Qualified Codes: J96.21 - Acute and chronic respiratory failure with hypoxia; J96.22 - Acute and chronic respiratory failure with hypercapnia Additional Impressions: Pneumonia Qualified Codes: J18.9 - Pneumonia, unspecified organism Immunocompromised state Anemia Qualified Codes: D64.9 - Anemia, unspecified Admitting Information Admitting Physician Requests: Admit Shruti Bosch MD Nov 26, 2017 01:42
[2017-11-26] MEDS ORDERED: VANCOMYCIN INJ 1,000 MG in SODIUM CHLOR 0.9% 250 ML INJ 250 ML IV ONE (01:45)
[2017-11-26] MEDS ORDERED: SODIUM CHLORID 0.9% 500 ML INJ 500 ML IV ONE (01:45)
[2017-11-26] MEDS ORDERED: PIPERACIL-TAZO 3.375 GM PREMIX 50 ML IV ONE (01:45)
[2017-11-26 01:55] LABS: AMORPHOUS SEDIMENT, URINE RARE; BACTERIA, URINE MANY /hpf; BILIRUBIN, URINE NEG (NEG); BLOOD, URINE NEG (NEG); GLUCOSE,URINE NEG (NEG); HYALINE CAST, URINE 3 /lpf (RARE); KETONE, URINE TRACE mg/dL (NEG); MUCUS URINE FEW /lpf (OCC); NITRITE,URINE NEG (NEG); SQUAMOUS EPITHELIAL CELL URINE 3 /hpf (0-5); URINE COLOR DARK-YELLOW (YELLW/STRAW); URINE LEUKOCYTE ESTERASE SMALL (NEG)
[2017-11-26 01:59] LABS: AUTOMATED NEUTROPHIL # 1.8 TH/MM3 (1.8-7.7); BASOPHIL % 0.6 % (0.0-2.0); EOSINOPHIL # 0.1 TH/MM3 (0-0.4); EOSINOPHIL % 2.1 % (0.0-4.0); HEMATOCRIT 24.4 % (39.0-51.0); HEMOGLOBIN 7.2 GM/DL (13.0-17.0); LYMPH % 15.5 % (9.0-44.0); LYMPHOCYTE # 0.4 TH/MM3 (1.0-4.8); MEAN CELL VOLUME 88.6 FL (80.0-100.0); MEAN CORPUSCULAR HEMOGLOBIN 26.1 PG (27.0-34.0); MONO % 13.4 % (0.0-8.0); MONOCYTE # 0.4 TH/MM3 (0-0.9); NEUT % 68.4 % (16.0-70.0); PLATELET COUNT 84 TH/MM3 (150-450); RED BLOOD COUNT 2.75 MIL/MM3 (4.50-5.90); RED CELL DISTRIBUTION WIDTH 22.6 % (11.6-17.2); WHITE BLOOD COUNT 2.7 TH/MM3 (4.0-11.0)
[2017-11-26 02:01] LABS: MEAN CORPUSCULAR HGB CONC 29.4 % (32.0-36.0)
--- NOTE | 2017-11-26 02:01 | RADRPT ---
EXAM DATE: 11/26/2017 1:53 AM EDT AGE/SEX: 56 years / Male INDICATIONS: Medical, post intubation. CLINICAL DATA: This is the patient's initial encounter. Patient reports that signs and symptoms have been present for 1 day and indicates a pain score of 0/10. MEDICAL/SURGICAL HISTORY: None. Pacemaker. [place] [facility] [place]. . FINDINGS: Single AP view of the chest. Endotracheal tube is now in place with the tip 4 cm above the anthony. Na sogastric tube is in place with the tip below the [id number] of the radiograph. Cardiac silhouette enlargement is again noted. Pacing device again noted. Bilateral lower lung zone opacity is similar to the prior study. No evidence of pneumothorax. Likely small bilateral pleural effusions. CONCLUSION: Endotracheal tube and nasogastric tube now in place. No other significant interval change with persis tent bilateral lower lung zone parenchymal opacity. Electronically signed by: Alex Ahn MD 11/26/2017 2:00 AM EDT
[2017-11-26] MEDS ORDERED: LORA-474 PO (02:02)
[2017-11-26] MEDS ORDERED: MORP1INJ25 (02:02)
[2017-11-26] MEDS ORDERED: IPRASOL INH (02:02)
[2017-11-26 02:04] LABS: INTERNATIONAL NORMALIZED RATIO 1.3 RATIO; PROTHROMBIN TIME - PATIENT 12.8 SEC (9.8-11.6)
[2017-11-26 02:18] LABS: ALBUMIN 2.2 GM/DL (3.4-5.0); BICARBONATE 33.1 MEQ/L (21.0-32.0); CALCIUM 7.3 MG/DL (8.5-10.1); CREATININE 3.47 MG/DL (0.60-1.30)
[2017-11-26] MEDS: PROPOFOL 1000 MG/100 ML INJ 100 ML IV PRN ×4 (02:21→22:44)
[2017-11-26 02:25] LABS: C-REACTIVE PROTEIN 9.16 MG/DL (0.00-0.30); CALCIUM-PROTEIN CORRECTED 8.2 MG/DL (8.5-10.1); TOTAL BILIRUBIN ADULT 0.8 MG/DL (0.2-1.0); TOTAL PROTEIN 5.4 GM/DL (6.4-8.2)
[2017-11-26] MEDS ORDERED: LORazepam 1 MG TAB PO PRN (02:30)
[2017-11-26] MEDS ORDERED: MAGNESIUM HYDROXIDE SUSP 30 ML CUP PO PRN ×2 (02:30→02:45)
[2017-11-26 02:44] LABS: OVALOCYTES 1+ (NORMAL); STOMATOCYTES 2+ (NORMAL)
[2017-11-26] MEDS ORDERED: NURSING INFORMATION XX SCH (02:45)
[2017-11-26] MEDS ORDERED: SODIUM CHLORIDE 0.9% FLUSH 10 ML FLUSH IV FLUSH PRN (02:45)
[2017-11-26] MEDS ORDERED: MIDAZOLAM HCL 2 MG/2 ML VIAL IV PUSH PRN (02:45)
[2017-11-26] MEDS ORDERED: LACTULOSE SYRUP 20 GM/30 ML CUP PO PRN (02:45)
[2017-11-26] MEDS ORDERED: HYDROmorphone HCL PF 2 MG/ML VIAL IV PUSH PRN (02:45)
[2017-11-26] MEDS ORDERED: SENNOSIDES 8.6 MG TAB PO PRN (02:45)
[2017-11-26] MEDS ORDERED: BISACODYL 10 MG SUPP RECTAL PRN (02:45)
[2017-11-26] MEDS ORDERED: CHLORHEXIDINE GLUCONATE 2 % 1 PACK (2 CLOTHS) TOP PRN (02:45)
[2017-11-26] MEDS ORDERED: ONDANSETRON ODT 4 MG TAB PO PRN (02:45)
[2017-11-26] MEDS ORDERED: ACETAMINOPHEN 325 MG TAB PO PRN (02:45)
[2017-11-26] MEDS ORDERED: RESP: ALBUTEROL 2.5 MG/IPRATROPIUM 0.5 MG NEB (PRN) INH (02:45)
--- NOTE | 2017-11-26 02:48 | HHI.HP ---
HPI Service Critical Care Medicine Primary Care Physician Kamron Daniel MD Admission Diagnosis Diagnosis: Travel History International Travel<30 Days: No Contact w/Intl Traveler <30 Da: No Traveled to Known Affected Are: No History of Present Illness 56 year old male with COPD requiring nasal CPAP, HIV, hepatitis, and MRSA presents with a history of shortness of breath that had been progressively getting worse over the last 24 hours. The patient is currently a resident at [facility]. According to ambulance service, the patient was on hospice which was recently revoked. Upon ambulance arrival the patient was noted to be tachypneic with a respiratory rate in the 40s, O2 saturations were reportedly at 90% on nasal CPAP. The patient's GCS was diminished to 9 whereas the patient's normal GCS is 15. The patient was provided Versed 4 mg IV, etomidate 20 mg IV and intubated with an endotracheal tube, size 7-1/2. The patient had an OG tube placed. The patient was given normal saline 1500 mL in route to this facility. On arrival, the patient not have any spontaneous respiratory activity noted. Review of Systems ROS Unobtainable patient is intubated Past Family Social History Allergies: Coded Allergies: benazepril (Unverified Allergy, Severe, SWELLING MOUTH ,TONGUE, 11/26/17) captopril (Unverified Allergy, Severe, SWELLING MOUTH ,TONGUE, 11/26/17) enalaprilat (Unverified Allergy, Severe, SWELLING MOUTH ,TONGUE, 11/26/17) fosinopril (Unverified Allergy, Severe, SWELLING MOUTH ,TONGUE, 11/26/17) lisinopril (Unverified Allergy, Severe, SWELLING MOUTH ,TONGUE, 11/26/17) quinapril (Unverified Allergy, Severe, SWELLING MOUTH ,TONGUE, 11/26/17) Past Medical History Rheumatoid arthritis HIV Depression Apparently the patient has been told he needs stents and a defibrillator in the past Lymphoma, unknown type Chronic lymphedema A prior history of chemotherapy Coronary artery disease Diabetes COPD Congestive heart failure, unknown type GERD Hepatitis Hypertension Sleep apnea Prior myocardial infarction Past Surgical History Cardiac surgery of some kind Oral surgery, not otherwise specified Graft to the right upper leg Reported Medications Reported Meds & Active Scripts Active Fondaparinux Inj (Fondaparinux) 5 Mg/0.4 Ml Syr 5 Mg SQ Q24H Oxycodone (Oxycodone HCl) 10 Mg Tab 5 Mg PO Q6HR PRN Novolog Inj (Insulin Aspart) 1,000 Unit/10 Ml Vial 1-9 Units SQ ACHS Max dose at bedtime:( )units; sugars less than 70,(0)units; sugars 150-199,(1) unit; sugars 200-249,(3) units; sugars 250-299,(5) units; sugars 300-349,(7) units; sugars greater than 349,(9) units Novolog Inj (Insulin Aspart) 1,000 Unit/10 Ml Vial 5 Units SQ TIDAC 30 Days Hold if pre-meal glucose < 110 Norvasc (Amlodipine Besylate) 5 Mg Tab 5 Mg PO DAILY Coreg (Carvedilol) 12.5 Mg Tab 12.5 Mg PO Q12HR Hydralazine HCl 25 Mg Tablet 25 Mg PO Q8HR Mepron Liq (Atovaquone) 750 Mg/5 Ml Susp 1,500 Mg PO DAILY Azithromycin 600 Mg Tab 1,200 Mg PO Q7D Basaglar Kwikpen (Insulin Glargine) 100 Unit/Ml Pen 20 Units SQ HS Reported Morphine Sulfate 30 Mg/30 Ml (1 Mg/Ml) Helmet Coverer.syring Duoneb (Ipratropium-Albuterol Neb) 0.5-2.5 Mg/3 Ml Neb 1 Nebule INH Q6HR NEB Ativan (Lorazepam) 1 Mg Tab 1 Mg PO Q4H PRN Duoneb (Ipratropium-Albuterol Neb) 0.5-2.5 Mg/3 Ml Neb 1 Nebule INH Q6HR NEB Milk of Magnesia Liq (Magnesium Hydroxide) 400 Mg/5 Ml Susp 30 Ml PO DAILY PRN Chlorhexidine Gluconate (Mouth) Liq (Chlorhexidine Gluconate) 0.12% Soln 15 Ml SWISH-SPIT BID Gabapentin 100 Mg Cap 200 Mg PO Q8HR Levothyroxine (Levothyroxine Sodium) 50 Mcg Tab 50 Mcg PO DAILY Norvir (Ritonavir) 100 Mg Cap 100 Mg PO DAILY Famotidine 20 Mg Tab 20 Mg PO DAILY Bumetanide 1 Mg Tab 1 Mg PO DAILY Spiriva Handihaler (Tiotropium Inh) 18 Mcg Cap 18 Mcg INH DAILY 1 capsule = 18 mcg Intelence (Etravirine) 200 Mg Tab 200 Mg PO BID Isentress (Raltegravir) 400 Mg Tab 400 Mg PO BID Ventolin Hfa 18 GM Inh (Albuterol Sulfate) 90 Mcg/Act Aer 1 Puff INH Q6H PRN Seroquel (Quetiapine Fumarate) 25 Mg Tab 25 Mg PO BID Ascorbic Acid 500 Mg Tab 500 Mg PO BID Multiple Vitamin 1 Tab 1 Tab PO DAILY Active Ordered Medications Current Medications Medications (Trade) Dose Ordered Sig/Kaela Route PRN Reason Start Time Stop Time Status Last Admin Dose Admin Sodium Chloride 500 ml @ 500 mls/hr BOLUS ONCE IV 11/26/17 01:45 11/26/17 02:44 11/26/17 01:58 Vancomycin HCl 1000 mg/Sodium Chloride 250 ml @ 250 mls/hr ONCE ONCE IV 11/26/17 01:45 11/26/17 02:44 11/26/17 02:21 Propofol 100 ml @ 0 mls/hr TITRATE PRN IV SEDATION 11/26/17 02:15 11/26/17 02:21 Amlodipine Besylate (Norvasc) 5 mg DAILY PO 11/26/17 09:00 Ascorbic Acid (Vitamin C) 500 mg BID PO 11/26/17 09:00 Atovaquone (Mepron Liq) 1,500 mg DAILY PO 11/26/17 09:00 Azithromycin (Zithromax) 1,200 mg Q7D PO 11/26/17 06:00 Bumetanide (Bumetanide) 1 mg DAILY PO 11/26/17 09:00 Carvedilol (Coreg) 12.5 mg Q12HR PO 11/26/17 09:00 Famotidine (Pepcid) 20 mg DAILY PO 11/26/17 09:00 UNV Fondaparinux (Arixtra Inj) 5 mg Q24H SQ 11/26/17 02:30 UNV Gabapentin (Neurontin) 200 mg Q8HR PO 11/26/17 06:00 UNV Hydralazine HCl (Apresoline) 25 mg Q8HR PO 11/26/17 06:00 UNV Levothyroxine Sodium (Synthroid) 50 mcg DAILY PO 11/26/17 09:00 UNV Lorazepam (Ativan) 1 mg Q4H PRN PO for severe anxiety or dyspnea 11/26/17 02:30 UNV Magnesium Hydroxide (Milk Of Magnesia Liq) 30 ml DAILY PRN PO INDUS 11/26/17 02:30 UNV Quetiapine Fumarate (SEROquel) 25 mg BID PO 11/26/17 09:00 UNV Raltegravir (Isentress) 400 mg BID PO 11/26/17 09:00 UNV Ritonavir (Norvir) 100 mg DAILY PO 11/26/17 09:00 UNV Tiotropium [place] (Spiriva Inh) 18 mcg DAILY INH 11/26/17 09:00 UNV Non-Formulary Medication 200 mg BID PO 11/26/17 09:00 UNV Non-Formulary Medication 1 tab DAILY PO 11/26/17 09:00 UNV Sodium Chloride 1,000 ml @ 84 mls/hr [id number] IV 11/26/17 02:32 UNV Sodium Chloride (NS Flush) 2 ml UNSCH PRN IV FLUSH FLUSH AFTER USING IV ACCESS 11/26/17 02:45 UNV Sodium Chloride (NS Flush) 2 ml BID IV FLUSH 11/26/17 09:00 UNV Acetaminophen (Tylenol) 650 mg Q6H PRN PO PAIN 1-5 AND/OR FEVER >101F 11/26/17 02:45 UNV Hydromorphone HCl (Dilaudid Pf Inj) 1 mg Q4H PRN IV PUSH PAIN SCALE 6 TO 10 11/26/17 02:45 UNV Midazolam HCl (Versed Inj) 2 mg Q1H PRN IV PUSH SEDATION 11/26/17 02:45 UNV Artificial Tears (Tears Naturale Opth Soln) 1 drop TID EACH EYE 11/26/17 09:00 UNV Ondansetron HCl (Zofran Inj) 4 mg Q6H PRN IV PUSH NAUSEA OR VOMITING 11/26/17 02:45 UNV Albuterol/ Ipratropium (Duoneb Neb) 1 ampule Q6HR NEB INH 11/26/17 04:00 UNV Albuterol/ Ipratropium (Duoneb Neb) 1 ampule Q2HR NEB PRN INH WHEEZING 11/26/17 02:45 UNV [facility]iscellaneous Information [facility] 1 Q361D XX 11/26/17 02:45 UNV Chlorhexidine Gluconate (Chlorhexidine 2% Cloth) 3 pack Taper DAILY@04 TOP 11/26/17 04:00 11/22/18 03:59 UNV Chlorhexidine Gluconate (Chlorhexidine 2% Cloth) 3 pack UNSCH PRN TOP HYGIENIC CARE 11/26/17 02:45 UNV Senna/Docusate Sodium (Angella-Colace) 1 tab BID PO 11/26/17 09:00 UNV Magnesium Hydroxide (Milk Of Magnesia Liq) 30 ml Q12H PRN PO Mild constipation 11/26/17 02:45 UNV Sennosides (Senokot) 17.2 mg Q12H PRN PO Moderate constipation 11/26/17 02:45 UNV Bisacodyl (Dulcolax Supp) 10 mg DAILY PRN RECTAL SEVERE CONSITIPATION 11/26/17 02:45 UNV Lactulose (Lactulose Liq) 30 ml DAILY PRN PO SEVERE CONSITIPATION 11/26/17 02:45 UNV Chlorhexidine Gluconate (Peridex 0.12% Liq) 15 ml BID@08,20 MT 11/26/17 08:00 UNV Propofol 100 ml @ 0 mls/hr TITRATE PRN IV SEDATION 11/26/17 02:45 UNV Calcium Gluconate 2 gm/Sodium Chloride 120 ml @ 120 mls/hr ONCE ONCE IV 11/26/17 02:45 11/26/17 03:44 UNV Family History Unobtainable Social History Per chart review Negative for alcohol or tobacco. Positive for cocaine and marijuana. Physical Exam Vital Signs Vital Signs Date Time Temp Pulse Resp B/P (MAP) Pulse Ox O2 Delivery O2 Flow Rate FiO2 11/26/17 02:31 81 18 115/74 (88) 100 45 11/26/17 02:23 95 18 99/63 (75) 100 45 11/26/17 01:55 100 11/26/17 01:54 97.7 82 14 106/51 (69) 100 100 11/26/17 01:20 100 100 11/26/17 01:19 100 Physical Exam GENERAL: Elderly appearing male, unresponsive and intubated SKIN: Warm and dry. HEAD: Normocephalic. EYES: No scleral icterus. No injection or drainage. NECK: Supple, trachea midline. No JVD or lymphadenopathy. CARDIOVASCULAR: Regular rate and rhythm without murmurs, gallops, or rubs. RESPIRATORY: Breath sounds equal bilaterally. No accessory muscle use. GASTROINTESTINAL: Abdomen soft, non-tender, nondistended. MUSCULOSKELETAL: No cyanosis, The right lower extremity has 2+ edema. The left lower extremity does not have edema. No edema of the upper extremities BACK: Nontender without obvious deformity. NEURO EXAM: GCS: 3 Mental Status: The patient is comatose and unresponsive. Laboratory Laboratory Tests Test 11/26/17 01:30 11/26/17 01:52 White Blood Count 2.7 Red Blood Count 2.75 Hemoglobin 7.2 Hematocrit 24.4 Mean Corpuscular Volume 88.6 Mean Corpuscular Hemoglobin 26.1 Mean Corpuscular Hemoglobin Concent 29.4 Red Cell Distribution Width 22.6 Platelet Count 84 Mean Platelet Volume 8.0 Neutrophils (%) (Auto) 68.4 Lymphocytes (%) (Auto) 15.5 Monocytes (%) (Auto) 13.4 Eosinophils (%) (Auto) 2.1 Basophils (%) (Auto) 0.6 Neutrophils # (Auto) 1.8 Lymphocytes # (Auto) 0.4 Monocytes # (Auto) 0.4 Eosinophils # (Auto) 0.1 Basophils # (Auto) 0.0 CBC Comment AUTO DIFF Prothrombin Time 12.8 Prothromb Time International Ratio 1.3 Activated Partial Thromboplast Time 33.2 Urine Color DARK-YELLOW Urine Turbidity HAZY Urine pH 5.0 Urine Specific [place] 1.024 Urine Protein 30 Urine Glucose (UA) NEG Urine Ketones TRACE Urine Occult Blood NEG Urine Nitrite NEG Urine Bilirubin NEG Urine Urobilinogen 2.0 Urine Leukocyte Esterase SMALL Urine RBC 2 Urine WBC 8 Urine Squamous Epithelial Cells 3 Urine Amorphous Sediment RARE Urine Bacteria MANY Urine Hyaline Casts 3 Urine Mucus FEW Microscopic Urinalysis Comment CULTURE INDICATED Blood Urea Nitrogen 55 Creatinine 3.47 Random Glucose 98 Total Protein 5.4 Albumin 2.2 Calcium Level 7.3 Magnesium Level 2.0 Alkaline Phosphatase 51 Aspartate Amino Transf (AST/SGOT) 13 Alanine Aminotransferase (ALT/SGPT) 20 Total Bilirubin 0.8 Sodium Level 145 Potassium Level 5.1 Chloride Level 106 Carbon Dioxide Level 33.1 Anion Gap 6 Estimat Glomerular Filtration Rate 22 Lactic Acid Level 1.2 Protein Corrected Calcium 8.2 Total Creatine Kinase 22 C-Reactive Protein 9.16 Lipase 35 Thyroid Stimulating Hormone 3rd Gen 2.470 Blood Gas Puncture Site RT RADIAL Blood Gas Patient Temperature 98.6 Blood Gas HCO3 32 Blood Gas Base Excess 6.3 Blood Gas Oxygen Saturation 98 Arterial Blood pH 7.33 Arterial Blood Partial Pressure CO2 62 Arterial Blood Partial Pressure O2 388 Arterial Blood Oxygen Content 11.0 Arterial Blood Carboxyhemoglobin 2.9 Arterial Blood Methemoglobin 0.4 Blood Gas Hemoglobin 7.3 Oxygen Delivery Device VENT Blood Gas Ventilator Setting 14/500/5 Blood Gas Inspired Oxygen 100 Date/Time Source Procedure Growth Status 11/26/17 01:30 Blood Peripheral Aerobic Blood Culture Pending Received 11/26/17 01:30 Blood Peripheral Anaerobic Blood Culture Pending Received 11/26/17 01:30 Urine Random Urine Urine Culture Pending Received Result Diagram: 11/26/1712911/26/17129 Imaging Last 24 hours Impressions Chest X-Ray 11/26/17 0119 Signed Impressions: CONCLUSION: Endotracheal tube and nasogastric tube now in place. No other significant inter mee change with persistent bilateral lower lung zone parenchymal opacity. Caprini VTE Risk Assessment Caprini VTE Risk Assessment: Mod/High Risk (score >= 2) Caprini Risk Assessment Model Point Value = 1 Point Value = 2 Point Value = 3 Point Value = 5 Age 41-60 Minor surgery BMI > 25 kg/m2 Swollen legs Varicose veins or History of unexplained or recurrent spontaneous Oral contraceptives or hormone replacement Sepsis (< 1 month) Serious lung disease, including pneumonia (< 1 month) Abnormal pulmonary function Acute myocardial infarction Congestive heart failure (< 1 month) History of inflammatory bowel disease Medical patient at bed rest Age 61-74 Arthroscopic surgery Major open surgery (> 45 min) Laparoscopic surgery (> 45 min) Malignancy Confined to bed (> 72 hours) Immobilizing plaster cast Central venous access Age >= 75 History of VTE Family history of VTE Factor V Leiden Prothrombin [id number] Lupus anticoagulant Anticardiolipin antibodies Elevated serum homocysteine Heparin-induced thrombocytopenia Other congenital or acquired thrombophilia Stroke (< 1 month) Elective arthroplasty Hip, pelvis, or leg fracture Acute spinal cord injury (< 1 month) Prophylaxis Regimen Total Risk Factor Score Risk Level Prophylaxis Regimen 0-1 Low Early ambulation 2 Moderate Order ONE of the following: *Sequential Compression Device (SCD) *Heparin 5000 units SQ BID 3-4 Higher Order ONE of the following medications: *Heparin 5000 units SQ TID *Enoxaparin/Lovenox 40 mg SQ daily (WT < 150 kg, CrCl > 30 mL/min) *Enoxaparin/Lovenox 30 mg SQ daily (WT < 150 kg, CrCl > 10-29 mL/min) *Enoxaparin/Lovenox 30 mg SQ BID (WT < 150 kg, CrCl > 30 mL/min) AND/OR *Sequential Compression Device (SCD) 5 or more Highest Order ONE of the following medications: *Heparin 5000 units SQ TID (Preferred with Epidurals) *Enoxaparin/Lovenox 40 mg SQ daily (WT < 150 kg, CrCl > 30 mL/min) *Enoxaparin/Lovenox 30 mg SQ daily (WT < 150 kg, CrCl > 10-29 mL/min) *Enoxaparin/Lovenox 30 mg SQ BID (WT < 150 kg, CrCl > 30 mL/min) AND *Sequential Compression Device (SCD) Assessment and Plan Assessment and Plan Respiratory failure -Intubated for an airway protection -No weaning under neurologically improved -Vent bundle -DuoNeb scheduled and as needed Pneumonia -Community-acquired -Immunocompromised patient -Broad-spectrum antibiotic -Panculture -De-escalate per sensitivity -Infectious disease consultation Altered mental status -SIRS/sepsis -Metabolic toxic -CT head pending -Neuro checks per unit protocol HIV/AIDS -Continue home meds -Further per ID Acute on chronic kidney injury -Strict I's and O -IV fluid hydration -Monitor electrolytes and creatinine levels Hypocalcemia -Replacement Hypothyroid -Levothyroxine COPD -DuoNeb scheduled and as needed -IV steroid -ABG and CXR daily -Empiric antibiotic Hypertension -Borderline blood pressure -Hold Norvasc Coreg and hydralazine -Resume when indicated Depression -Seroquel Hepatitis C -Monitor LFTs and liver function DVT GI prophylaxis -Nba's and SCDs -Subcu heparin -Pepcid Critical Care: The total critical care time was 35 minutes. Time to perform other separately billable procedures was not included in the critical care time. Walt Hernandez MD Nov 26, 2017 2:48 am
[2017-11-26] MEDS: SODIUM CHLOR 0.9% 1000 ML INJ 1,000 ML IV SCH ×2 (03:25→12:38)
[2017-11-26] MEDS: AZITHROMYCIN INJ 500 MG in SODIUM CHLOR 0.9% 250 ML INJ 250 ML IV SCH (03:25)
[2017-11-26] MEDS: CEFEPIME INJ 2,000 MG in SODIUM CHLORIDE 0.9% INJ 100 ML IV SCH (03:57)
[2017-11-26] MEDS: RESP: ALBUTEROL 2.5 MG/IPRATROPIUM 0.5 MG NEB (SCH) INH ×4 (04:00→21:07)
[2017-11-26] MEDS ORDERED: CALCIUM GLUCONATE INJ 2 GM in SODIUM CHLORIDE 0.9% INJ 100 ML IV ONE (04:00)
[2017-11-26] MEDS: CHLORHEXIDINE GLUCONATE 2 % 1 PACK (2 CLOTHS) TOP SCH (04:00)
[2017-11-26] MEDS ORDERED: hydrALAZINE HCL 25 MG TAB PO SCH (06:00)
[2017-11-26] MEDS ORDERED: AZITHROMYCIN 600 MG TAB PO SCH (06:00)
[2017-11-26] MEDS: methylPREDNISolone SOD SUCC 40 MG/1 ML VIAL IV PUSH SCH ×3 (06:15→17:30)
[2017-11-26] MEDS: GABAPENTIN 100 MG CAP PO SCH ×3 (06:16→21:26)
[2017-11-26] MEDS: FONDAPARINUX SODIUM 5 MG/0.4 ML SYRINGE SQ SCH (08:27)
[2017-11-26] MEDS: CHLORHEXIDINE 0.12% (ORAL KIT) 15 ML CUP MT SCH ×2 (08:27→21:25)
[2017-11-26] MEDS: FAMOTIDINE 20 MG TAB PO SCH (08:28)
[2017-11-26] MEDS: ATOVAQUONE SUSP 750 MG/5 ML UDC PO SCH (08:28)
[2017-11-26] MEDS: RALTEGRAVIR 400 MG TAB PO SCH ×2 (08:29→21:26)
[2017-11-26] MEDS: ETRAVIRINE 100 MG TAB PO SCH ×2 (08:29→21:25)
[2017-11-26] MEDS: MULTIVITAMIN TAB PO SCH (08:29)
[2017-11-26] MEDS: BUMETANIDE 1 MG TAB PO SCH (08:29)
[2017-11-26] MEDS: RITONAVIR 100 MG TAB PO SCH (08:29)
[2017-11-26] MEDS: DOCUSATE SODIUM 50 MG/SENNA 8.6 MG TAB PO SCH ×2 (08:29→21:26)
[2017-11-26] MEDS: ASCORBIC ACID 500 MG TAB PO SCH ×2 (08:29→21:26)
[2017-11-26] MEDS: TIOTROPIUM BROMIDE 18 MCG INH INH SCH (08:30)
[2017-11-26] MEDS: QUEtiapine FUMARATE 25 MG TAB PO SCH ×2 (08:30→21:25)
[2017-11-26] MEDS: SODIUM CHLORIDE 0.9% FLUSH 10 ML FLUSH IV FLUSH SCH ×2 (08:30→21:25)
[2017-11-26] MEDS ORDERED: amLODIPine BESYLATE 5 MG TAB PO SCH (09:00)
[2017-11-26] MEDS ORDERED: CARVEDILOL 12.5 MG TAB PO SCH (09:00)
[2017-11-26] MEDS: LEVOTHYROXINE SODIUM 50 MCG TAB PO SCH (12:38)
--- NOTE | 2017-11-26 12:41 | MB ---
cc: Raul Alexis MD DATE: 11/26/2017 REQUESTING PHYSICIAN: Dr. Hernandez REASON FOR CONSULTATION: HIV/AIDS. HISTORY OF PRESENT ILLNESS: This is a 56-year-old white male who was brought to the emergency department from [facility] because of respiratory distress. The patient was noted to be tachypneic with a respiratory rate of 40 and he was intubated. He is currently sedated and on the ventilator and is unresponsive. Information is obtained from the medical record. The patient was recently discharged from this hospital on 11/22/2017. He was treated for hypokalemia, UTI and COPD. He has AIDS, but has been noncompliant and was recently restarted on medication. During the last hospitalization, he had a vascath placed in the femoral area for dialysis. The patient is noted to have been on hospice and hospice was rescinded. He has been treated with Lasix and has not been receiving dialysis lately. The last dialysis reportedly was given on 10/28/2017. The patient is afebrile. Chest x-ray today shows persistent bilateral lower lung zone parenchymal opacity. During the last hospitalization, the patient was seen by infectious disease and he was treated for a UTI. He was put on prophylaxis for MAC and PCP. PAST MEDICAL HISTORY: 1. Hypertension. 2. AIDS. 3. Diabetes mellitus. 5. Chronic kidney disease. 6. Congestive heart failure. 7. Ischemic heart disease. 8. Hepatitis B. 9. AICD. 10. Rectal surgery. 11. Obstructive sleep apnea. ALLERGIES: 1. CAPTOPRIL. 2. BENAZEPRIL. 3. ENALAPRILAT. 4. FOSINOPRIL. 5. LISINOPRIL. 6. QUINAPRIL. MEDICATIONS: 1. Vitamin C. 2. Mepron. 3. Bumetanide. 4. Pepcid. 5. Synthroid. 6. Seroquel. 7. Isentress. 8. Norvil. 9. Intelence. 10. Theragran. 11. Spiriva. 12. Angella-Colace. 13. Arixtra. 14. Neurontin. 15. Solu-Medrol. 16. DuoNeb. 17. Cefepime 18. Azithromycin. SOCIAL HISTORY: Unable to obtain since the patient is on the ventilator. REVIEW OF SYSTEMS: Unable to obtain because of the ventilator. PHYSICAL EXAMINATION: GENERAL: This is a well-developed male who appears older than his stated age. He is sedated on the ventilator and not responsive. VITAL SIGNS: Temperature 97 degrees, blood pressure 136/98, heart rate 87, respirations per ventilator. HEENT: Unable to assess fully. Sclerae are pale. Oropharynx, unable to evaluate, the patient is intubated. NECK: No adenopathy or swelling. LUNGS: Rhonchi at both bases. HEART: Regular S1 and S2. No audible murmur. ABDOMEN: Decreased bowel sounds, soft. No palpable mass. RECTAL: Not performed. EXTREMITIES: Both thighs have thick granular tissue and the legs also have thickened leathery soft tissue all the way down to the feet. The skin of the lower extremities are hyperpigmented. Otherwise, skin has no diffuse rash. NEUROLOGIC: Unable to assess because the patient is on the ventilator and unresponsive. PSYCHIATRIC: Unable to assess. LABORATORY DATA: WBC 2.7, platelets 84, hemoglobin 7.2, 60% neutrophils, 15%, lymphocytes, 13% monocytes. Creatinine 3.47, BUN 55, estimated GFR 22, sodium 145, AST 13, ALT 20, alkaline phosphatase 51. Sputum culture pending. Blood culture pending. Urine culture pending. Urinalysis revealed 8 white cells and positive bacteria. IMPRESSION: 1. Pneumonia. 2. Probable urinary tract infection. 3. Acute respiratory failure. 4. Acquired immunodeficiency syndrome. Patient is currently on antiretroviral medications. 5. Chronic kidney disease, stage IV. RECOMMENDATIONS: 1. Continue cefepime. 2. Continue azithromycin. 3. Continue HIV medications. 4. Monitor sputum culture. 5. Monitor blood culture. 6. Monitor urine culture. 7. Continue to follow clinical status. Thanks for this consultation. I will follow the patient's progress and adjust antibiotics depending on culture results and clinical status. Thank you for this consultation. MD ADAN Ayala/SAIGE , 11:57 AM , 12:39 PM MELINDA
--- NOTE | 2017-11-26 14:23 | EKG ---
Date Performed: 11/26/2017 Time Performed: 00:17:53 PTAGE: 56 years EKG: This EKG has marked artifact and I would repeat it. PREVIOUS TRACING : 10/30/2017 11.15 DOCTOR: Bay Moore Interpretating Date/Time 11/26/2017 14:21:37
[2017-11-26] MEDS: ARTIFICIAL TEARS OPTH SOLN 15 ML BTL EACH EYE SCH (17:30)
[2017-11-27] VITALS (20 sets, daily range): BP systolic 110–150; BP diastolic 65–107; PULSE 79–93; RESP 13–24; TEMP 96.9–98.6; O2SAT 93–100
[2017-11-27] MEDS: SODIUM CHLOR 0.9% 1000 ML INJ 1,000 ML IV SCH ×2 (00:04→15:48)
[2017-11-27] MEDS: methylPREDNISolone SOD SUCC 40 MG/1 ML VIAL IV PUSH SCH ×4 (00:12→17:01)
[2017-11-27] MEDS: AZITHROMYCIN INJ 500 MG in SODIUM CHLOR 0.9% 250 ML INJ 250 ML IV SCH (02:26)
[2017-11-27] MEDS: RESP: ALBUTEROL 2.5 MG/IPRATROPIUM 0.5 MG NEB (SCH) INH ×4 (03:22→20:41)
[2017-11-27] MEDS: PROPOFOL 1000 MG/100 ML INJ 100 ML IV PRN ×6 (03:30→21:11)
[2017-11-27] MEDS: CHLORHEXIDINE GLUCONATE 2 % 1 PACK (2 CLOTHS) TOP SCH (04:00)
--- NOTE | 2017-11-27 04:34 | RADRPT ---
EXAM DATE: 11/27/2017 4:29 AM EDT AGE/SEX: 56 years / Male INDICATIONS: Short of breath. CLINICAL DATA: This is the patient's subsequent encounter. Patient reports that signs and symptoms h ave been present for 1 week and indicates a pain score of 0/10. MEDICAL/SURGICAL HISTORY: None. Pacemaker. COMPARISON: [facility] [place], CHEST SINGLE AP, 11/26/2017. . FINDINGS: Single AP view the chest. Cardiac pacing lead remains in place. Endotracheal tube and nasogastric tub e again seen. Persistently enlarged cardiac silhouette. Bilateral lower lung zone opacity unchanged. No evidence of pneumothorax. CONCLUSION: No significant interval change. Persistent hazy bilateral lower lung zone opacity and cardiac silhoue tte enlargement. Electronically signed by: Alex Ahn MD 11/27/2017 4:33 AM EDT
[2017-11-27] MEDS: CEFEPIME INJ 2,000 MG in SODIUM CHLORIDE 0.9% INJ 100 ML IV SCH (04:40)
[2017-11-27] MEDS: LEVOTHYROXINE SODIUM 50 MCG TAB PO SCH (05:54)
[2017-11-27] MEDS: GABAPENTIN 100 MG CAP PO SCH ×3 (05:54→21:10)
[2017-11-27] MEDS: FONDAPARINUX SODIUM 5 MG/0.4 ML SYRINGE SQ SCH (05:55)
[2017-11-27 07:15] LABS: INTERNATIONAL NORMALIZED RATIO 1.3 RATIO; PROTHROMBIN TIME - PATIENT 13.1 SEC (9.8-11.6)
[2017-11-27 07:20] LABS: ALBUMIN 2.5 GM/DL (3.4-5.0); BICARBONATE 23.8 MEQ/L (21.0-32.0); CALCIUM 7.7 MG/DL (8.5-10.1); CREATININE 3.94 MG/DL (0.60-1.30); MAGNESIUM 2.1 MG/DL (1.5-2.5); PHOSPHORUS 5.3 MG/DL (2.5-4.9); TOTAL BILIRUBIN ADULT 0.8 MG/DL (0.2-1.0); TOTAL PROTEIN 6.2 GM/DL (6.4-8.2)
[2017-11-27 07:22] LABS: AUTOMATED NEUTROPHIL # 2.8 TH/MM3 (1.8-7.7); BASOPHIL % 1.5 % (0.0-2.0); EOSINOPHIL % 0.3 % (0.0-4.0); HEMATOCRIT 28.6 % (39.0-51.0); HEMOGLOBIN 8.5 GM/DL (13.0-17.0); LYMPH % 5.3 % (9.0-44.0); LYMPHOCYTE # 0.2 TH/MM3 (1.0-4.8); MEAN CORPUSCULAR HEMOGLOBIN 25.8 PG (27.0-34.0); MEAN PLATELET VOLUME 8.3 FL (7.0-11.0); MONO % 4.5 % (0.0-8.0); MONOCYTE # 0.1 TH/MM3 (0-0.9); NEUT % 88.4 % (16.0-70.0); PLATELET COUNT 105 TH/MM3 (150-450); RED BLOOD COUNT 3.29 MIL/MM3 (4.50-5.90); RED CELL DISTRIBUTION WIDTH 23.7 % (11.6-17.2); WHITE BLOOD COUNT 3.1 TH/MM3 (4.0-11.0)
[2017-11-27 07:26] LABS: MEAN CORPUSCULAR HGB CONC 29.7 % (32.0-36.0)
[2017-11-27 07:42] LABS: CALCIUM-PROTEIN CORRECTED 8.2 MG/DL (8.5-10.1)
[2017-11-27] MEDS: DOCUSATE SODIUM 50 MG/SENNA 8.6 MG TAB PO SCH ×2 (07:59→21:10)
[2017-11-27] MEDS: BUMETANIDE 1 MG TAB PO SCH (07:59)
[2017-11-27] MEDS: MULTIVITAMIN TAB PO SCH (07:59)
[2017-11-27] MEDS: ATOVAQUONE SUSP 750 MG/5 ML UDC PO SCH (07:59)
[2017-11-27] MEDS: RITONAVIR 100 MG TAB PO SCH (07:59)
[2017-11-27] MEDS: QUEtiapine FUMARATE 25 MG TAB PO SCH ×2 (07:59→21:10)
[2017-11-27] MEDS: ARTIFICIAL TEARS OPTH SOLN 15 ML BTL EACH EYE SCH ×3 (08:00→17:01)
[2017-11-27] MEDS: RALTEGRAVIR 400 MG TAB PO SCH ×2 (08:00→21:10)
[2017-11-27] MEDS: ETRAVIRINE 100 MG TAB PO SCH ×2 (08:00→21:10)
[2017-11-27] MEDS: SODIUM CHLORIDE 0.9% FLUSH 10 ML FLUSH IV FLUSH SCH ×2 (08:00→21:11)
[2017-11-27] MEDS: FAMOTIDINE 20 MG TAB PO SCH (08:00)
[2017-11-27] MEDS: TIOTROPIUM BROMIDE 18 MCG INH INH SCH (08:00)
[2017-11-27] MEDS: ASCORBIC ACID 500 MG TAB PO SCH ×2 (08:00→21:00)
[2017-11-27] MEDS: CHLORHEXIDINE 0.12% (ORAL KIT) 15 ML CUP MT SCH ×2 (08:01→19:55)
[2017-11-27] MEDS ORDERED: GLUCAGON 1 MG/ML VIAL OTHER PRN (09:45)
[2017-11-27] MEDS ORDERED: FUROSEMIDE 100 MG/10 ML VIAL IV PUSH ONE (09:45)
[2017-11-27] MEDS ORDERED: DEXTROSE 50% IN WATER 50 ML VIAL(D50) IV PUSH PRN (09:45)
[2017-11-27] MEDS: hydrALAZINE HCL 25 MG TAB PO SCH ×2 (10:44→17:04)
[2017-11-27] MEDS: amLODIPine BESYLATE 5 MG TAB PO SCH (10:44)
[2017-11-27] MEDS: CARVEDILOL 12.5 MG TAB PO SCH ×2 (10:44→21:10)
[2017-11-27] MEDS: INSULIN ASPART SUPPLEMENTAL SCALE SQ SCH ×3 (11:28→21:10)
[2017-11-27] MEDS ORDERED: SODIUM POLYSTYRENE SULFONATE SUSP 15 GM/60 ML CUP NG ONE (11:45)
--- NOTE | 2017-11-27 12:21 | HHI.IDPN ---
Note Infectious Disease Note Patient is on CPAP. Sedated on the ventilator. Afebrile. Cultures pending. This is a 56-year-old white male who was brought to the emergency department from [facility] because of respiratory distress. The patient was noted to be tachypneic with a respiratory rate of 40 and he was intubated. Consult requested for HIV/AIDS. PAST MEDICAL HISTORY: 1. Hypertension. 2. AIDS. 3. Diabetes mellitus. 5. Chronic kidney disease. 6. Congestive heart failure. 7. Ischemic heart disease. 8. Hepatitis B. 9. AICD. 10. Rectal surgery. 11. Obstructive sleep apnea. ALLERGIES: 1. CAPTOPRIL. 2. BENAZEPRIL. 3. ENALAPRILAT. 4. FOSINOPRIL. 5. LISINOPRIL. 6. QUINAPRIL. MEDICATIONS: Current Medications Medications (Trade) Dose Ordered Sig/Kaela Route PRN Reason Start Time Stop Time Status Last Admin Dose Admin Propofol 100 ml @ 0 mls/hr TITRATE PRN IV SEDATION 11/26/17 02:15 11/26/17 13:01 Ascorbic Acid (Vitamin C) 500 mg BID PO 11/26/17 09:00 11/27/17 08:00 Atovaquone (Mepron Liq) 1,500 mg DAILY PO 11/26/17 09:00 11/27/17 07:59 Bumetanide (Bumetanide) 1 mg DAILY PO 11/26/17 09:00 Future Hold 11/27/17 07:59 Famotidine (Pepcid) 20 mg DAILY PO 11/26/17 09:00 11/27/17 08:00 Fondaparinux (Arixtra Inj) 5 mg Q24H SQ 11/26/17 06:00 11/27/17 05:55 Gabapentin (Neurontin) 200 mg Q8HR PO 11/26/17 06:00 11/27/17 05:54 Levothyroxine Sodium (Synthroid) 50 mcg DAILY@0600 PO 11/26/17 09:00 11/27/17 05:54 Lorazepam (Ativan) 1 mg Q4H PRN PO for severe anxiety or dyspnea 11/26/17 02:30 Magnesium Hydroxide (Milk Of Magnesia Liq) 30 ml DAILY PRN PO INDUS 11/26/17 02:30 Quetiapine Fumarate (SEROquel) 25 mg BID PO 11/26/17 09:00 11/27/17 07:59 Raltegravir (Isentress) 400 mg BID PO 11/26/17 09:00 11/27/17 08:00 Ritonavir (Norvir) 100 mg DAILY PO 11/26/17 09:00 11/27/17 07:59 Tiotropium [place] (Spiriva Inh) 18 mcg DAILY INH 11/26/17 09:00 Etravirine (Intelence) 200 mg BID PO 11/26/17 09:00 11/27/17 08:00 Multivitamins (Theragran) 1 tab DAILY PO 11/26/17 09:00 11/27/17 07:59 Sodium Chloride 1,000 ml @ 42 mls/hr [id number] IV 11/26/17 02:32 11/27/17 00:04 Sodium Chloride (NS Flush) 2 ml UNSCH PRN IV FLUSH FLUSH AFTER USING IV ACCESS 11/26/17 02:45 Sodium Chloride (NS Flush) 2 ml BID IV FLUSH 11/26/17 09:00 11/27/17 08:00 Acetaminophen (Tylenol) 650 mg Q6H PRN PO PAIN 1-5 AND/OR FEVER >101F 11/26/17 02:45 Hydromorphone HCl (Dilaudid Pf Inj) 1 mg Q4H PRN IV PUSH PAIN SCALE 6 TO 10 11/26/17 02:45 Midazolam HCl (Versed Inj) 2 mg Q1H PRN IV PUSH SEDATION 11/26/17 02:45 Artificial Tears (Tears Naturale Opth Soln) 1 drop TID EACH EYE 11/26/17 09:00 11/27/17 12:07 Ondansetron HCl (Zofran Odt) 4 mg Q6H PRN PO NAUSEA OR VOMITING 11/26/17 02:45 Albuterol/ Ipratropium (Duoneb Neb) 1 ampule Q6HR NEB INH 11/26/17 04:00 11/27/17 08:44 Albuterol/ Ipratropium (Duoneb Neb) 1 ampule Q2HR NEB PRN INH WHEEZING 11/26/17 02:45 Miscellaneous Information ([facility]) 1 [id number] XX 11/26/17 02:45 11/26/17 04:30 Chlorhexidine Gluconate (Chlorhexidine 2% Cloth) 3 pack Taper DAILY@04 TOP 11/26/17 04:00 11/22/18 03:59 11/27/17 04:00 Chlorhexidine Gluconate (Chlorhexidine 2% Cloth) 3 pack UNSCH PRN TOP HYGIENIC CARE 11/26/17 02:45 Senna/Docusate Sodium (Angella-Colace) 1 tab BID PO 11/26/17 09:00 11/27/17 07:59 Magnesium Hydroxide (Milk Of Magnesia Liq) 30 ml Q12H PRN PO Mild constipation 11/26/17 02:45 Sennosides (Senokot) 17.2 mg Q12H PRN PO Moderate constipation 11/26/17 02:45 Bisacodyl (Dulcolax Supp) 10 mg DAILY PRN RECTAL SEVERE CONSITIPATION 11/26/17 02:45 Lactulose (Lactulose Liq) 30 ml DAILY PRN PO SEVERE CONSITIPATION 11/26/17 02:45 Chlorhexidine Gluconate (Peridex 0.12% Liq) 15 ml BID@08,20 MT 11/26/17 08:00 11/27/17 08:01 Propofol 100 ml @ 3.45 mls/hr TITRATE PRN IV SEDATION 11/26/17 02:45 11/27/17 10:29 Methylprednisolone Sodium Succinate (SoluMEDROL INJ) 40 mg Q6HR IV PUSH 11/26/17 06:00 11/27/17 11:17 Cefepime HCl 2000 mg/Sodium Chloride 100 ml @ 200 mls/hr Q24H IV 11/26/17 04:00 11/27/17 04:40 Azithromycin 500 mg/Sodium Chloride 250 ml @ 250 mls/hr Q24H IV 11/26/17 03:00 11/27/17 02:26 Azithromycin (Zithromax) 1,200 mg Q7D PO 12/02/17 09:00 Amlodipine Besylate (Norvasc) 5 mg DAILY PO 11/27/17 10:00 11/27/17 10:44 Carvedilol (Coreg) 12.5 mg Q12H PO 11/27/17 10:00 11/27/17 10:44 Hydralazine HCl (Apresoline) 25 mg Q8H PO 11/27/17 10:00 11/27/17 10:44 Furosemide (Lasix Inj) 40 mg BID@,18 IV PUSH 11/27/17 18:00 Dextrose (D50w (Vial) Inj) 50 ml UNSCH PRN IV PUSH HYPOGLYCEMIA-SEE COMMENTS 11/27/17 09:45 Glucagon (Glucagon Inj) 1 mg UNSCH PRN OTHER HYPOGLYCEMIA-SEE COMMENTS 11/27/17 09:45 Insulin Aspart (NovoLOG SUPPLEMENTAL SCALE) 1 ACHS SLIDING SCALE SQ 11/27/17 12:00 11/27/17 11:28 Objective: Vital Signs Date Time Temp Pulse Resp B/P (MAP) Pulse Ox O2 Delivery O2 Flow Rate FiO2 11/27/17 11:24 40 11/27/17 11:24 100 40 11/27/17 10:00 82 11/27/17 08:44 99 35 11/27/17 08:00 83 11/27/17 08:00 35 11/27/17 08:00 96.9 83 18 112/65 (81) 93 11/27/17 06:00 92 11/27/17 05:23 99 35 11/27/17 04:00 93 11/27/17 04:00 35 11/27/17 04:00 98.6 93 18 150/107 (121) 100 11/27/17 03:23 96 35 11/27/17 02:00 88 11/27/17 00:03 99 35 11/27/17 00:00 98.3 87 23 143/91 (108) 99 11/27/17 00:00 35 11/27/17 00:00 87 11/26/17 22:00 86 11/26/17 21:02 98 35 11/26/17 20:00 98.4 81 21 144/96 (112) 99 11/26/17 20:00 35 11/26/17 20:00 81 11/26/17 18:00 81 11/26/17 16:20 100 35 11/26/17 16:00 35 11/26/17 16:00 98.0 80 11 125/80 (95) 100 11/26/17 16:00 80 11/26/17 14:00 82 Laboratory Tests Test 11/26/17 01:30 11/27/17 06:25 White Blood Count 2.7 TH/MM3 3.1 TH/MM3 Red Blood Count 2.75 MIL/MM3 3.29 MIL/MM3 Hemoglobin 7.2 GM/DL 8.5 GM/DL Hematocrit 24.4 % 28.6 % Mean Corpuscular Volume 88.6 FL 87.0 FL Mean Corpuscular Hemoglobin 26.1 PG 25.8 PG Mean Corpuscular Hemoglobin Concent 29.4 % 29.7 % Red Cell Distribution Width 22.6 % 23.7 % Platelet Count 84 TH/MM3 105 TH/MM3 Mean Platelet Volume 8.0 FL 8.3 FL Neutrophils (%) (Auto) 68.4 % 88.4 % Lymphocytes (%) (Auto) 15.5 % 5.3 % Monocytes (%) (Auto) 13.4 % 4.5 % Eosinophils (%) (Auto) 2.1 % 0.3 % Basophils (%) (Auto) 0.6 % 1.5 % Neutrophils # (Auto) 1.8 TH/MM3 2.8 TH/MM3 Lymphocytes # (Auto) 0.4 TH/MM3 0.2 TH/MM3 Monocytes # (Auto) 0.4 TH/MM3 0.1 TH/MM3 Eosinophils # (Auto) 0.1 TH/MM3 0.0 TH/MM3 Basophils # (Auto) 0.0 TH/MM3 0.0 TH/MM3 CBC Comment AUTO DIFF DIFF FINAL Differential Comment AUTO DIFF CONFIRMED Platelet Estimate LOW Platelet Morphology Comment NORMAL Basophilic Stippling FAINT Ovalocytes 1+ Stomatocytes 2+ Laboratory Tests Test 11/26/17 01:30 11/26/17 10:13 11/27/17 06:25 Blood Urea Nitrogen 55 MG/DL 71 MG/DL Creatinine 3.47 MG/DL 3.94 MG/DL Random Glucose 98 MG/DL 262 MG/DL Total Protein 5.4 GM/DL 6.2 GM/DL Albumin 2.2 GM/DL 2.5 GM/DL Calcium Level 7.3 MG/DL 7.7 MG/DL Magnesium Level 2.0 MG/DL 2.1 MG/DL Alkaline Phosphatase 51 U/L 63 U/L Aspartate Amino Transf (AST/SGOT) 13 U/L 14 U/L Alanine Aminotransferase (ALT/SGPT) 20 U/L 22 U/L Total Bilirubin 0.8 MG/DL 0.8 MG/DL Sodium Level 145 MEQ/L 139 MEQ/L Potassium Level 5.1 MEQ/L 5.9 MEQ/L Chloride Level 106 MEQ/L 103 MEQ/L Carbon Dioxide Level 33.1 MEQ/L 23.8 MEQ/L Anion Gap 6 MEQ/L 12 MEQ/L Estimat Glomerular Filtration Rate 22 ML/MIN 19 ML/MIN Lactic Acid Level 1.2 mmol/L Protein Corrected Calcium 8.2 MG/DL 8.2 MG/DL Total Creatine Kinase 22 U/L Troponin I 0.13 NG/ML 0.21 NG/ML C-Reactive Protein 9.16 MG/DL B-Type Natriuretic Peptide 505 PG/ML Lipase 35 U/L Thyroid Stimulating Hormone 3rd Gen 2.470 uIU/ML Phosphorus Level 5.3 MG/DL Microbiology Date/Time Source Procedure Growth Status 11/26/17 01:30 Blood Peripheral Aerobic Blood Culture - Preliminary NO GROWTH IN 1 DAY Resulted 11/26/17 01:30 Blood Peripheral Anaerobic Blood Culture - Preliminary NO GROWTH IN 1 DAY Resulted 11/26/17 01:25 Blood Peripheral Aerobic Blood Culture - Preliminary NO GROWTH IN 1 DAY Resulted 11/26/17 01:25 Blood Peripheral Anaerobic Blood Culture - Preliminary NO GROWTH IN 1 DAY Resulted 11/26/17 04:00 Sputum Endotracheal Gram Stain - Final Resulted 11/26/17 04:00 Sputum Endotracheal Sputum Culture Pending Resulted 11/26/17 01:30 Urine Random Urine Urine Culture Pending Received Imaging: Chest X-Ray 11/27/17 0000 Signed Impressions: CONCLUSION: No significant interval change. Persistent hazy bilateral lower lung zone opaci ty and cardiac silhouette enlargement. PHYSICAL EXAMINATION: GENERAL: Patient is on the ventilator. Sedated. HEENT: Unable to assess fully. Sclerae are pale. Oropharynx appear moist. NECK: No adenopathy or swelling. LUNGS: Slight decreased breath sounds. Mostly clear. HEART: Regular S1 and S2. No audible murmur. ABDOMEN: Decreased bowel sounds, soft. No palpable mass. EXTREMITIES: Both thighs have thick granular tissue and the legs also have thickened liver-like soft tissue all the way down to the feet. The skin of the lower extremities are hyperpigmented. Otherwise, skin has no diffuse rash. NEUROLOGIC: Unable to assess. PSYCHIATRIC: Unable to assess. IMPRESSION: 1. Pneumonia. 2. Probable urinary tract infection. 3. Acute respiratory failure. 4. Acquired immunodeficiency syndrome. Patient is currently on antiretroviral medications. 5. Chronic kidney disease, stage IV. RECOMMENDATIONS: 1. Continue cefepime. 2. Continue azithromycin. 3. Continue HIV medications. 4. Monitor sputum culture. 5. Monitor blood culture. 6. Monitor urine culture. 7. Monitor the clinical status. Raul Alexis MD Nov 27, 2017 12:21
--- NOTE | 2017-11-27 12:32 | MB ---
cc: Rohan Ga MD DATE: 11/27/2017 REASON FOR CONSULTATION: Chronic kidney disease, advanced renal failure for management. HISTORY OF PRESENT ILLNESS: This is a 56-year-old male known to me from before with a past medical history of hypertension, HIV, COPD, chronic kidney disease stage IV, lymphedema of the legs, diabetes mellitus, congestive heart failure, sleep apnea, who came to the hospital with worsening shortness of breath. I was called to see the patient because of elevated BUN and creatinine. The patient has a known history of chronic kidney disease. He was recently discharged from the hospital and he has off and on acute kidney injury. He was on hemodialysis for some time for hyperkalemia, but his kidney function improved and his baseline creatinine seems to be in the range of 2.3-2.5. This is when he was discharged 5-6 days ago and now he came back with a creatinine of 3.4 and it has gone up to 3.9. The patient was intubated on admission because of respiratory failure. He is now on CPAP and off sedation and following some of the commands. The patient was discharged to a group home and his breathing was not very good on admission and he was intubated via the EVAC before he came to the hospital. Here in the hospital, the patient is getting NG tube feeding and also he is getting some IV fluids and got 1 dose of Lasix. Most of the history was taken from patient's chart since the patient is not able to give any history. PAST MEDICAL HISTORY: Hypertension, chronic kidney disease stage IV, ischemic heart disease, congestive heart failure, chronic obstructive pulmonary disease, diabetes mellitus, sleep apnea, chronic lymphedema, HIV disease. PAST SURGICAL HISTORY: History of thigh biopsy, AICD placement, rectal surgery. REVIEW OF SYSTEMS: Cannot be taken since the patient is intubated and not able to give much response. SOCIAL HISTORY: The patient currently lives in a nursing facility. He has a past history of smoking. There is no history of heavy alcoholism. FAMILY HISTORY: Noncontributory. ALLERGIES: HE IS ALLERGIC TO BENAZEPRIL, CAPTOPRIL, AND ALL JANAE INHIBITORS WITH SWELLING OF THE MOUTH AND TONGUE. MEDICATIONS: Currently, he is on following medications: 1. IV fluid normal saline at 84 an hour. 2. Vitamin C 500 mg b.i.d. 3. Seroquel 25 mg b.i.d. 4. Isentress 400 mg b.i.d. 5. Intelence 200 mg b.i.d. 6. Angella-Colace 1 tablet b.i.d. 7. Lasix 40 mg IV b.i.d. 8. Norvir 100 mg daily. 9. Pepcid 20 mg daily. 10. Spiriva inhaler. 11. Theragran-M one tablet daily. 12. Synthroid 50 mcg daily. 13. DuoNeb nebulizers. 14. Carvedilol 12.5 mg every 12 hours. 15. Cefepime 2 g q. 24 hours. 16. Arixtra injection 5 mg q. 24 hours. 17. Erythromycin 500 mg q. 24 hours. 18. Hydralazine 25 mg q. 8 hours. 19. Gabapentin 20 mg q. 8 hours. 20. Insulin as per sliding scale. 21. Hydromorphone as needed. PHYSICAL EXAMINATION: GENERAL: The patient is intubated, responding to some of the verbal commands by nodding his head. VITAL SIGNS: His blood pressure is 121/65, temperature 96.9, there is some hypotension on arrival and the lowest recorded was 88/50. Oxygen saturation on 40% FIO2 is 100%. HEENT: Pupils are mid constricted. Nonicteric sclerae. Conjunctivae pale. NECK: Supple. JVD is elevated. LUNGS: The patient has bilateral good air entry which decrease at the bases with basilar rales and scattered wheezing. HEART: S1, S2. Regular rhythm. ABDOMEN: Distended, soft, lax. There is no tenderness. EXTREMITIES: He has bilateral lymphedema. INVESTIGATIONS: WBC count is 3.1, hemoglobin 8.5, platelet count 105, neutrophils 88.4. Sodium 139, potassium 5.9, chloride 103, bicarbonate 23.8, BUN 71, creatinine 3.9, glucose is 262, calcium 7.7, corrected calcium is 8.2, phosphorus 5.3, AST is 14, ALT is 22. Troponin I was 0.21. Total protein 6.2, albumin of 2.5. INR 1.3. Urine toxicology screen was negative on admission. Urinalysis showing protein of 30. Blood culture and urine culture and sputum cultures are pending. IMAGING STUDIES: The patient had a chest x-ray done today which shows bilateral lower lobe opacities. Ultrasound of the kidney was done in 2013 and there is a repeat one done last month which shows that he has very small size kidney 7.9 and 8.1 cm. ASSESSMENT AND PLAN: 1. Chronic kidney disease with some acute worsening. 2. Respiratory failure. 3. Pneumonia. 4. Hyperkalemia. 5. Anemia. 6. Respiratory failure. 7. Diabetes mellitus. 8. History of human immunodeficiency virus. 9. The patient has a potassium of 5.9. The creatinine has been increasing. His baseline creatinine is around 2.3-2.5 now it has gone up to 3.9. The patient had a history of this hyperkalemia before and he was on dialysis last month for some time and the kidney function improved. His diet has been changed now to Nepro so this probably will help improving potassium. I will give him 1 dose of Kayexalate and I agree with continuing the diuretic and will decrease the IV fluid since he is tolerating the feeding. If renal function does not improve, he possibly will need dialysis. Thank you for this consultation. I will follow the patient while he is in the hospital. Millicent Ga MD AQJ/SAIGE , 11:42 AM , 12:31 PM MTDAnjana
[2017-11-27] MEDS ORDERED: LABETALOL HCL 100 MG/20 ML VIAL IV PUSH PRN (16:45)
[2017-11-27] MEDS ORDERED: Vancomycin Consult Pharmacy 1 EA OTHER SCH (16:45)
--- NOTE | 2017-11-27 16:52 | HHI.CCPN ---
Subjective Remarks/Hospital Course 56 year old male with COPD requiring nasal CPAP, HIV, hepatitis, and MRSA presents with a history of shortness of breath that had been progressively getting worse over the last 24 hours. The patient is currently a resident at [facility]. According to ambulance service, the patient was on hospice which was recently revoked. Upon ambulance arrival the patient was noted to be tachypneic with a respiratory rate in the 40s, O2 saturations were reportedly at 90% on nasal CPAP. The patient's GCS was diminished to 9 whereas the patient's normal GCS is 15. The patient was provided Versed 4 mg IV, etomidate 20 mg IV and intubated with an endotracheal tube, size 7-1/2. The patient had an OG tube placed. The patient was given normal saline 1500 mL in route to this facility. On arrival, the patient not have any spontaneous respiratory activity noted. Subjective: 11/27: Patient was noted to be hypertensive during the night. Patient scheduled antihypertensive medications reinitiated. Daily sedation vacation patient following commands. The patient tolerated CPAP trials for 3 hours. Her last admission the patient was noted to have heparin platelet antibody positive antigen. Serotonin release assay pending. Fondaparinux 5 mg every 24 hours continued. Patient noted to have elevated potassium level this a.m. 80 mg Lasix IV given patient initiated him on 40 mg twice daily. Objective Vital Signs Date Time Temp Pulse Resp B/P (MAP) Pulse Ox O2 Delivery O2 Flow Rate FiO2 11/27/17 16:00 98.6 82 18 111/69 (83) 97 11/27/17 16:00 40 11/26/17 04:10 Ventilator Intake and Output 11/27/17 11/27/17 11/28/17 08:00 16:00 00:00 Intake Total 1789 ml 200 ml Output Total 125 ml Balance 1664 ml 200 ml Result Diagram: 11/27/17 0625 11/27/17 0625 Imaging Last Impressions Chest X-Ray 11/27/17 0000 Signed Impressions: CONCLUSION: No significant interval change. Persistent hazy bilateral lower lung zone opaci ty and cardiac silhouette enlargement. Last 24 hours Impressions Chest X-Ray 11/26/17 0119 Signed Impressions: CONCLUSION: Endotracheal tube and nasogastric tube now in place. No other significant inter mee change with persistent bilateral lower lung zone parenchymal opacity. Objective Remarks GENERAL: Obese -[place] Citizen male appearing older than stated age intubated and sedated SKIN: Warm and dry. HEAD: Normocephalic. EYES: No scleral icterus. No injection or drainage. NECK: Supple, trachea midline. No JVD or lymphadenopathy. CARDIOVASCULAR: Regular rate and rhythm without murmurs, gallops, or rubs. RESPIRATORY: Breath sounds equal bilaterally. No accessory muscle use. GASTROINTESTINAL: Abdomen soft, non-tender, nondistended. MUSCULOSKELETAL: No cyanosis, The right lower extremity has 2+ edema, lymphedema no. The left lower extremity does not have edema. No edema of the upper extremities BACK: Nontender without obvious deformity. NEURO EXAM: Mental Status: RASS -2. On daily sedation vacation patient following commands moves extremities 4. A/P Assessment and Plan Plan by systems: Neurologic: Depression Metabolic toxicity -Seroquel -CT head pending -Neuro checks per unit protocol Respiratory: Respiratory failure COPD Pneumonia-HCAP -Intubated for an airway protection -No weaning under neurologically improved -Vent bundle -DuoNeb scheduled and as needed -IV steroid -ABG and CXR daily -Empiric antibiotic Cardiovascular: Hypertension -Borderline blood pressure -Hold Norvasc Coreg and hydralazine -Resume when indicated Renal: Acute on chronic kidney injury -Strict I's and O -IV fluid hydration -Monitor electrolytes and creatinine levels -- Strict I/Os FEN/GI: Electrolyte abnormality Hypocalcemia -Monitor electrolytes and creatinine levels -- Strict I/Os --Hyperkalemia Lasix 80 mg 1 dose --Consult nephrology --Replete electrolytes per ICU protocol Heme/ID: HIV/AIDS Hepatitis C SIRS/sepsis -Monitor LFTs and liver function -Continue home meds- HAART -Immunocompromised patient -Further recommendations per ID Endocrine: Hypothyroid -Levothyroxine -- SSI Prophylaxis: DVT GI prophylaxis - SCD to left lower extremity -Fondaparinux 5 mg every 24 hours, patient was hepatitis platelet antibody positive -Pepcid Lines: Peripheral IVs x 2. Central line if indicated Dispo: my billing statement This patient remains critically ill with one or more organ systems which are or may become a threat to life. I have spent in excess of 37 minutes discontinuously in the care and management of this patient. This time is exclusive of procedures, and includes, but is not limited to, evaluation of the patient, review of the medical record, discussions with family, consultants, nursing staff, or respiratory therapy, and documentation in the medical record. Physician Carmelina Carney MD Nov 27, 2017 16:52
[2017-11-27] MEDS: FUROSEMIDE 40 MG/4 ML VIAL IV PUSH SCH (17:01)
[2017-11-27] MEDS ORDERED: VANCOMYCIN INJ 2,000 MG in SODIUM CHLORID 0.9% 500 ML INJ 500 ML IV ONE (20:00)
[2017-11-28] VITALS (18 sets, daily range): BP systolic 103–124; BP diastolic 61–87; PULSE 69–89; RESP 18–24; TEMP 97.5–98.4; O2SAT 94–99
[2017-11-28] MEDS: hydrALAZINE HCL 25 MG TAB PO SCH ×3 (02:21→16:34)
[2017-11-28] MEDS: RESP: ALBUTEROL 2.5 MG/IPRATROPIUM 0.5 MG NEB (SCH) INH ×4 (03:34→21:39)
[2017-11-28] MEDS: CHLORHEXIDINE GLUCONATE 2 % 1 PACK (2 CLOTHS) TOP SCH (04:00)
[2017-11-28 04:06] LABS: BASOPHIL % 1.2 % (0.0-2.0); EOSINOPHIL % 0.2 % (0.0-4.0); HEMATOCRIT 25.5 % (39.0-51.0); HEMOGLOBIN 7.6 GM/DL (13.0-17.0); LYMPH % 6.6 % (9.0-44.0); LYMPHOCYTE # 0.2 TH/MM3 (1.0-4.8); MEAN CELL VOLUME 87.2 FL (80.0-100.0); MEAN PLATELET VOLUME 8.1 FL (7.0-11.0); MONO % 3.9 % (0.0-8.0); MONOCYTE # 0.1 TH/MM3 (0-0.9); NEUT % 88.1 % (16.0-70.0); PLATELET COUNT 104 TH/MM3 (150-450); RED BLOOD COUNT 2.92 MIL/MM3 (4.50-5.90); RED CELL DISTRIBUTION WIDTH 23.5 % (11.6-17.2); WHITE BLOOD COUNT 2.3 TH/MM3 (4.0-11.0)
[2017-11-28 04:10] LABS: MEAN CORPUSCULAR HGB CONC 29.8 % (32.0-36.0)
[2017-11-28] MEDS: AZITHROMYCIN INJ 500 MG in SODIUM CHLOR 0.9% 250 ML INJ 250 ML IV SCH (04:12)
[2017-11-28] MEDS: CEFEPIME INJ 2,000 MG in SODIUM CHLORIDE 0.9% INJ 100 ML IV SCH (04:13)
[2017-11-28 04:15] LABS: INTERNATIONAL NORMALIZED RATIO 1.2 RATIO; PROTHROMBIN TIME - PATIENT 12.4 SEC (9.8-11.6)
[2017-11-28 04:31] LABS: ALBUMIN 2.5 GM/DL (3.4-5.0); BICARBONATE 24.8 MEQ/L (21.0-32.0); CALCIUM 7.3 MG/DL (8.5-10.1); CREATININE 4.24 MG/DL (0.60-1.30); MAGNESIUM 2.2 MG/DL (1.5-2.5); PHOSPHORUS 5.8 MG/DL (2.5-4.9)
[2017-11-28 04:36] LABS: CALCIUM-PROTEIN CORRECTED 7.9 MG/DL (8.5-10.1); RANDOM VANCOMYCIN 16.4 COMMENT; TOTAL BILIRUBIN ADULT 0.4 MG/DL (0.2-1.0)
--- NOTE | 2017-11-28 06:04 | RADRPT ---
EXAM DATE: 11/28/2017 5:56 AM EDT AGE/SEX: 56 years / Male INDICATIONS: Shortness of breath, possible pulmonary disease. CLINICAL DATA: This is the patient's subsequent encounter. Patient reports that signs and symptoms h ave been present for 2 weeks and indicates a pain score of Nonresponsive. MEDICAL/SURGICAL HISTORY: None. Pacemaker. COMPARISON: [facility] [place] CHEST SINGLE AP, 11/27/2017. . FINDINGS: Single AP view the chest. Cardiac pacemaker remains in place. Endotracheal tube and nasogastric tube remain in place. Marked cardiac silhouette enlargement unchanged. Bilateral lower lung zone opacity u nchanged. No evidence of pneumothorax. CONCLUSION: No significant interval change. Persistent bilateral lower lung zone predominant ulnar opacity. Electronically signed by: Alex Ahn MD 11/28/2017 6:03 AM EDT
[2017-11-28] MEDS: LEVOTHYROXINE SODIUM 50 MCG TAB PO SCH (07:21)
[2017-11-28] MEDS: methylPREDNISolone SOD SUCC 40 MG/1 ML VIAL IV PUSH SCH ×5 (07:21→22:50)
[2017-11-28] MEDS: FONDAPARINUX SODIUM 5 MG/0.4 ML SYRINGE SQ SCH (07:21)
[2017-11-28] MEDS: GABAPENTIN 100 MG CAP PO SCH ×3 (07:22→22:50)
[2017-11-28 08:06] LABS: BANDS 1 % (0-6); CORRECTED NUCLEATED RBC 2 /100 WBC (0-0); HOWELL-JOLLY BODIES PRESENT (NONE SEEN); LYMPHOCYTES 4 % (9-44); MONOCYTES 1 % (0-8); NEUTROPHIL # MANUAL DIFF 2.1 TH/MM3 (1.8-7.7); NUCLEATED RED BLOOD CELL 2 (0-0); POLYS (SEG NEUTROPHILS) 91 % (16-70)
[2017-11-28 08:07] LABS: OVALOCYTES 1+ (NORMAL)
[2017-11-28] MEDS: CHLORHEXIDINE 0.12% (ORAL KIT) 15 ML CUP MT SCH ×2 (08:26→20:21)
[2017-11-28] MEDS: PROPOFOL 1000 MG/100 ML INJ 100 ML IV PRN ×3 (08:26→16:34)
[2017-11-28] MEDS: RALTEGRAVIR 400 MG TAB PO SCH ×2 (09:00→22:49)
[2017-11-28] MEDS: TIOTROPIUM BROMIDE 18 MCG INH INH SCH (09:00)
[2017-11-28] MEDS: ARTIFICIAL TEARS OPTH SOLN 15 ML BTL EACH EYE SCH ×3 (09:00→16:35)
[2017-11-28] MEDS: RITONAVIR 100 MG TAB PO SCH (09:00)
--- NOTE | 2017-11-28 09:07 | HHI.CCPN ---
Subjective Remarks/Hospital Course 56 year old male with COPD requiring nasal CPAP, HIV, hepatitis, and MRSA presents with a history of shortness of breath that had been progressively getting worse over the last 24 hours. The patient is currently a resident at [facility]. According to ambulance service, the patient was on hospice which was recently revoked. Upon ambulance arrival the patient was noted to be tachypneic with a respiratory rate in the 40s, O2 saturations were reportedly at 90% on nasal CPAP. The patient's GCS was diminished to 9 whereas the patient's normal GCS is 15. The patient was provided Versed 4 mg IV, etomidate 20 mg IV and intubated with an endotracheal tube, size 7-1/2. The patient had an OG tube placed. The patient was given normal saline 1500 mL in route to this facility. On arrival, the patient not have any spontaneous respiratory activity noted. Subjective: 11/27: Patient was noted to be hypertensive during the night. Patient scheduled antihypertensive medications reinitiated. Daily sedation vacation patient following commands. The patient tolerated CPAP trials for 3 hours. Her last admission the patient was noted to have heparin platelet antibody positive antigen. Serotonin release assay pending. Fondaparinux 5 mg every 24 hours continued. Patient noted to have elevated potassium level this a.m. 80 mg Lasix IV given patient initiated him on 40 mg twice daily. 11/28: Afebrile. Noted potassium 5.8 this morning creatinine slightly more elevated 4.24 sodium bicarbonate infusion initiated at 42 cc/hr. invasive radiology consulted for Vas-Cath placement scheduled for 11/29/2017. Arixtra has been placed on hold. The patient continues on CPAP trials greater than 3 hours this a.m.. Repeat BMP this afternoon Objective Vital Signs Date Time Temp Pulse Resp B/P (MAP) Pulse Ox O2 Delivery O2 Flow Rate FiO2 11/28/17 08:21 40 11/28/17 08:21 98 11/28/17 08:00 98.0 89 24 124/87 (99) 11/26/17 04:10 Ventilator Intake and Output 11/28/17 11/28/17 11/29/17 08:00 16:00 00:00 Intake Total 337 ml Output Total 150 ml Balance 187 ml Result Diagram: 11/28/17 0305 11/28/17 0305 Other Results Microbiology Date/Time Source Procedure Growth Status 11/26/17 04:00 Sputum Endotracheal Gram Stain - Final Complete 11/26/17 04:00 Sputum Endotracheal Sputum Culture - Final HEAVY GROWTH NORMAL RESPIRATORY RONAN Complete Laboratory Tests Test 11/28/17 05:57 Blood Gas Puncture Site RT RADIAL Blood Gas Patient Temperature 98.6 Blood Gas HCO3 27 mmol/L (22-26) Blood Gas Base Excess 1.7 mmol/L (-2-2) Blood Gas Oxygen Saturation 95 % (90-100) Arterial Blood pH 7.31 (7.380-7.420) Arterial Blood Partial Pressure CO2 56 mmHg (38-42) Arterial Blood Partial Pressure O2 101 mmHg (61-120) Arterial Blood Oxygen Content 11.2 Vol % (12.0-20.0) Arterial Blood Carboxyhemoglobin 2.0 % (0-4) Arterial Blood Methemoglobin 1.1 % (0-2) Blood Gas Hemoglobin 8.3 G/DL (12.0-16.0) Oxygen Delivery Device VENTILATOR Blood Gas Ventilator Setting PRVC18/500/1.0/+5 Blood Gas Inspired Oxygen 40 % Imaging Last Impressions Chest X-Ray 11/27/17 0000 Signed Impressions: CONCLUSION: No significant interval change. Persistent hazy bilateral lower lung zone opaci ty and cardiac silhouette enlargement. Last 24 hours Impressions Chest X-Ray 11/26/17 0119 Signed Impressions: CONCLUSION: Endotracheal tube and nasogastric tube now in place. No other significant inter mee change with persistent bilateral lower lung zone parenchymal opacity. Objective Remarks GENERAL: Obese -Tunisian male appearing older than stated age intubated and sedated SKIN: Warm and dry. HEAD: Normocephalic. EYES: No scleral icterus. No injection or drainage. NECK: Supple, trachea midline. No JVD or lymphadenopathy. CARDIOVASCULAR: Regular rate and rhythm without murmurs, gallops, or rubs. RESPIRATORY: Breath sounds equal bilaterally. No accessory muscle use. GASTROINTESTINAL: Abdomen soft, non-tender, nondistended. MUSCULOSKELETAL: No cyanosis, The right lower extremity has 2+ edema, lymphedema no. The left lower extremity does not have edema. No edema of the upper extremities BACK: Nontender without obvious deformity. NEURO EXAM: Mental Status: RASS -2. On daily sedation vacation patient following commands moves extremities 4. A/P Assessment and Plan Plan by systems: Neurologic: Depression Metabolic toxicity -Seroquel -CT head pending -Neuro checks per unit protocol Respiratory: Respiratory failure COPD Pneumonia-HCAP -Intubated for an airway protection -No weaning under neurologically improved -Vent bundle -DuoNeb scheduled and as needed -IV steroid -ABG and CXR daily -Empiric antibiotic Cardiovascular: Hypertension -Borderline blood pressure -Hold Norvasc Coreg and hydralazine -Resume when indicated Renal: Acute on chronic kidney injury -Strict I's and O -IV fluid hydration -Monitor electrolytes and creatinine levels -- Strict I/Os FEN/GI: Electrolyte abnormality Hypocalcemia -Monitor electrolytes and creatinine levels -- Strict I/Os --Hyperkalemia Lasix 80 mg 1 dose --Consult nephrology --Replete electrolytes per ICU protocol Heme/ID: HIV/AIDS Hepatitis C SIRS/sepsis -Monitor LFTs and liver function -Continue home meds- HAART -Immunocompromised patient -Further recommendations per ID Endocrine: Hypothyroid -Levothyroxine -- SSI Prophylaxis: DVT GI prophylaxis - SCD to left lower extremity -Fondaparinux 5 mg every 24 hours, patient was hepatitis platelet antibody positive -Pepcid Lines: Peripheral IVs x 2. Central line if indicated Dispo: my billing statement This patient remains critically ill with one or more organ systems which are or may become a threat to life. I have spent in excess of 37 minutes discontinuously in the care and management of this patient. This time is exclusive of procedures, and includes, but is not limited to, evaluation of the patient, review of the medical record, discussions with family, consultants, nursing staff, or respiratory therapy, and documentation in the medical record. Carmelina Bonds MD Nov 28, 2017 09:07
[2017-11-28] MEDS: INSULIN ASPART SUPPLEMENTAL SCALE SQ SCH ×4 (09:40→21:00)
[2017-11-28] MEDS: SODIUM CHLORIDE 0.9% FLUSH 10 ML FLUSH IV FLUSH SCH ×2 (09:40→22:48)
[2017-11-28] MEDS: QUEtiapine FUMARATE 25 MG TAB PO SCH ×2 (09:41→22:49)
[2017-11-28] MEDS: ASCORBIC ACID 500 MG TAB PO SCH ×2 (09:41→22:49)
[2017-11-28] MEDS: FUROSEMIDE 40 MG/4 ML VIAL IV PUSH SCH ×2 (09:41→16:35)
[2017-11-28] MEDS: ETRAVIRINE 100 MG TAB PO SCH ×2 (09:42→22:48)
[2017-11-28] MEDS: FAMOTIDINE 20 MG TAB PO SCH (09:42)
[2017-11-28] MEDS: amLODIPine BESYLATE 5 MG TAB PO SCH (09:42)
[2017-11-28] MEDS: CARVEDILOL 12.5 MG TAB PO SCH ×2 (09:42→22:50)
[2017-11-28] MEDS: MULTIVITAMIN TAB PO SCH (09:42)
[2017-11-28] MEDS: ATOVAQUONE SUSP 750 MG/5 ML UDC PO SCH (09:42)
[2017-11-28] MEDS: DOCUSATE SODIUM 50 MG/SENNA 8.6 MG TAB PO SCH ×2 (09:42→22:49)
[2017-11-28] MEDS: SODIUM BICARBONATE 8.4% INJ 150 MEQ in DEXTROSE 5% IN WATE 1000ML INJ 850 ML IV SCH ×2 (09:43)
[2017-11-28] MEDS ORDERED: CALCIUM GLUCONATE INJ 2 GM in DEXTROSE 5% IN WATER 100ML INJ 100 ML IV ONE ×2 (09:45)
--- NOTE | 2017-11-28 09:46 | HHI.CCPN ---
Subjective Remarks/Hospital Course 56 year old male with COPD requiring nasal CPAP, HIV, hepatitis, and MRSA presents with a history of shortness of breath that had been progressively getting worse over the last 24 hours. The patient is currently a resident at [facility]. According to ambulance service, the patient was on hospice which was recently revoked. Upon ambulance arrival the patient was noted to be tachypneic with a respiratory rate in the 40s, O2 saturations were reportedly at 90% on nasal CPAP. The patient's GCS was diminished to 9 whereas the patient's normal GCS is 15. The patient was provided Versed 4 mg IV, etomidate 20 mg IV and intubated with an endotracheal tube, size 7-1/2. The patient had an OG tube placed. The patient was given normal saline 1500 mL in route to this facility. On arrival, the patient not have any spontaneous respiratory activity noted. Subjective: 11/27: Patient was noted to be hypertensive during the night. Patient scheduled antihypertensive medications reinitiated. Daily sedation vacation patient following commands. The patient tolerated CPAP trials for 3 hours. Her last admission the patient was noted to have heparin platelet antibody positive antigen. Serotonin release assay pending. Fondaparinux 5 mg every 24 hours continued. Patient noted to have elevated potassium level this a.m. 80 mg Lasix IV given patient initiated him on 40 mg twice daily. 11/28: Afebrile. Noted potassium 5.8 this morning creatinine slightly more elevated 4.24 sodium bicarbonate infusion initiated at 42 cc/hr. invasive radiology consulted for Vas-Cath placement scheduled for 11/29/2017. Arixtra has been placed on hold. The patient continues on CPAP trials greater than 3 hours this a.m.. Repeat BMP this afternoon. Objective Vital Signs Date Time Temp Pulse Resp B/P (MAP) Pulse Ox O2 Delivery O2 Flow Rate FiO2 11/28/17 08:21 40 11/28/17 08:21 98 11/28/17 08:00 80 11/28/17 08:00 98.0 24 124/87 (99) 11/26/17 04:10 Ventilator Intake and Output 11/28/17 11/28/17 11/28/17 07:59 15:59 23:59 Intake Total 337 ml Output Total 150 ml Balance 187 ml Result Diagram: 11/28/17 0305 11/28/17 0305 Other Results Microbiology Date/Time Source Procedure Growth Status 11/26/17 04:00 Sputum Endotracheal Gram Stain - Final Complete 11/26/17 04:00 Sputum Endotracheal Sputum Culture - Final HEAVY GROWTH NORMAL RESPIRATORY RONAN Complete 11/26/17 01:30 Urine Random Urine Urine Culture - Final <10,000 CFU/ML GRAM POSITIVE RONAN Complete Laboratory Tests Test 11/28/17 05:57 Blood Gas Puncture Site RT RADIAL Blood Gas Patient Temperature 98.6 Blood Gas HCO3 27 mmol/L (22-26) Blood Gas Base Excess 1.7 mmol/L (-2-2) Blood Gas Oxygen Saturation 95 % (90-100) Arterial Blood pH 7.31 (7.380-7.420) Arterial Blood Partial Pressure CO2 56 mmHg (38-42) Arterial Blood Partial Pressure O2 101 mmHg (61-120) Arterial Blood Oxygen Content 11.2 Vol % (12.0-20.0) Arterial Blood Carboxyhemoglobin 2.0 % (0-4) Arterial Blood Methemoglobin 1.1 % (0-2) Blood Gas Hemoglobin 8.3 G/DL (12.0-16.0) Oxygen Delivery Device VENTILATOR Blood Gas Ventilator Setting PRVC18/500/1.0/+5 Blood Gas Inspired Oxygen 40 % Imaging Last Impressions Chest X-Ray 11/27/17 0000 Signed Impressions: CONCLUSION: No significant interval change. Persistent hazy bilateral lower lung zone opaci ty and cardiac silhouette enlargement. Last 24 hours Impressions Chest X-Ray 11/26/17 0119 Signed Impressions: CONCLUSION: Endotracheal tube and nasogastric tube now in place. No other significant inter mee change with persistent bilateral lower lung zone parenchymal opacity. Objective Remarks GENERAL: Obese -Lebanese male appearing older than stated age intubated and sedated, early on CPAP SKIN: Warm and dry. HEAD: Normocephalic. EYES: No scleral icterus. No injection or drainage. NECK: Supple, trachea midline. No JVD or lymphadenopathy. CARDIOVASCULAR: Regular rate and rhythm without murmurs, gallops, or rubs. RESPIRATORY: Breath sounds equal bilaterally. No accessory muscle use. GASTROINTESTINAL: Abdomen soft, non-tender, nondistended. MUSCULOSKELETAL: No cyanosis, The right lower extremity has 3+ edema, lymphedema noted. The left lower extremity 1+ edema. 1+edema of the upper extremities. Scrotal edema BACK: Nontender without obvious deformity. NEURO EXAM: Mental Status: RASS -2. On daily sedation vacation patient following commands moves extremities 4. A/P Assessment and Plan Plan by systems: Neurologic: Depression Metabolic toxicity -Seroquel -CT head pending -Neuro checks per unit protocol Respiratory: Respiratory failure COPD Pneumonia-HCAP - 11/26 Intubated for an airway protection -No weaning under neurologically improved -Vent bundle -DuoNeb scheduled and as needed -IV steroids -ABG and CXR as clinically indicated -Empiric antibiotics -Begin CPAP trials Cardiovascular: Hypertension -Borderline blood pressure -Hold Norvasc Coreg and hydralazine -Resume when indicated Renal: Acute on chronic kidney injury -Strict I's and O -Sodium bicarbonate infusion at 42 cc /hr, discontinue normal saline -Monitor electrolytes and creatinine levels -- Strict I/Os FEN/GI: Electrolyte abnormality Hypocalcemia Hyperkalemia -Monitor electrolytes and creatinine levels -- Strict I/Os --Continue Lasix twice daily --Consult nephrology --Replete electrolytes per ICU protocol -11/28 Begin sodium bicarbonate infusion at 42 cc/hour -Nephrology following Dr. Ga, plan for vascular catheter placement by invasive radiology in a.m. 11/29/17 -Repeat BMP Heme/ID: HIV/AIDS Hepatitis C SIRS/sepsis -Monitor LFTs and liver function -Continue home meds- HAART -Immunocompromised patient -Further recommendations per ID Endocrine: Hypothyroid -Levothyroxine -- SSI Prophylaxis: DVT GI prophylaxis - SCD to left lower extremity -Fondaparinux 5 mg every 24 hour (placed on hold for vasc cath procedure 11/29), patient was hepatitis platelet antibody positive, NICHOLAS pending -Pepcid Lines: Peripheral IVs x 2. Central line if indicated Dispo: my billing statement This patient remains critically ill with one or more organ systems which are or may become a threat to life. I have spent in excess of 31 minutes discontinuously in the care and management of this patient. This time is exclusive of procedures, and includes, but is not limited to, evaluation of the patient, review of the medical record, discussions with family, consultants, nursing staff, or respiratory therapy, and documentation in the medical record. Physician Carmelina Carney MD Nov 28, 2017 09:46
[2017-11-28] MEDS ORDERED: VANCOMYCIN INJ 2,000 MG in SODIUM CHLORID 0.9% 500 ML INJ 500 ML IV ONE (10:00)
--- NOTE | 2017-11-28 13:18 | HHI.IDPN ---
Note Infectious Disease Note Patient is sedated on the ventilator. Appears comfortable. Afebrile. Cultures have no growth. This is a 56-year-old white male who was brought to the emergency department from [facility] because of respiratory distress. The patient was noted to be tachypneic with a respiratory rate of 40 and he was intubated. Consult requested for HIV/AIDS. PAST MEDICAL HISTORY: 1. Hypertension. 2. AIDS. 3. Diabetes mellitus. 5. Chronic kidney disease. 6. Congestive heart failure. 7. Ischemic heart disease. 8. Hepatitis B. 9. AICD. 10. Rectal surgery. 11. Obstructive sleep apnea. ALLERGIES: 1. CAPTOPRIL. 2. BENAZEPRIL. 3. ENALAPRILAT. 4. FOSINOPRIL. 5. LISINOPRIL. 6. QUINAPRIL. MEDICATIONS: Current Medications Medications (Trade) Dose Ordered Sig/Kaela Route PRN Reason Start Time Stop Time Status Last Admin Dose Admin Propofol 100 ml @ 0 mls/hr TITRATE PRN IV SEDATION 11/26/17 02:15 11/28/17 12:40 Ascorbic Acid (Vitamin C) 500 mg BID PO 11/26/17 09:00 11/28/17 09:41 Atovaquone (Mepron Liq) 1,500 mg DAILY PO 11/26/17 09:00 11/28/17 09:42 Bumetanide (Bumetanide) 1 mg DAILY PO 11/26/17 09:00 Future Hold 11/27/17 07:59 Famotidine (Pepcid) 20 mg DAILY PO 11/26/17 09:00 11/28/17 09:42 Fondaparinux (Arixtra Inj) 5 mg Q24H SQ 11/26/17 06:00 Future Hold 11/28/17 07:21 Gabapentin (Neurontin) 200 mg Q8HR PO 11/26/17 06:00 11/28/17 12:32 Levothyroxine Sodium (Synthroid) 50 mcg DAILY@0600 PO 11/26/17 09:00 11/28/17 07:21 Lorazepam (Ativan) 1 mg Q4H PRN PO for severe anxiety or dyspnea 11/26/17 02:30 Quetiapine Fumarate (SEROquel) 25 mg BID PO 11/26/17 09:00 11/28/17 09:41 Raltegravir (Isentress) 400 mg BID PO 11/26/17 09:00 11/27/17 21:10 Ritonavir (Norvir) 100 mg DAILY PO 11/26/17 09:00 11/27/17 07:59 Tiotropium Spivey (Spiriva Inh) 18 mcg DAILY INH 11/26/17 09:00 Etravirine (Intelence) 200 mg BID PO 11/26/17 09:00 11/28/17 09:42 Multivitamins (Theragran) 1 tab DAILY PO 11/26/17 09:00 11/28/17 09:42 Sodium Chloride (NS Flush) 2 ml UNSCH PRN IV FLUSH FLUSH AFTER USING IV ACCESS 11/26/17 02:45 Sodium Chloride (NS Flush) 2 ml BID IV FLUSH 11/26/17 09:00 11/28/17 09:40 Acetaminophen (Tylenol) 650 mg Q6H PRN PO PAIN 1-5 AND/OR FEVER >101F 11/26/17 02:45 Hydromorphone HCl (Dilaudid Pf Inj) 1 mg Q4H PRN IV PUSH PAIN SCALE 6 TO 10 11/26/17 02:45 Midazolam HCl (Versed Inj) 2 mg Q1H PRN IV PUSH SEDATION 11/26/17 02:45 Artificial Tears (Tears Naturale Opth Soln) 1 drop TID EACH EYE 11/26/17 09:00 11/28/17 12:12 Ondansetron HCl (Zofran Odt) 4 mg Q6H PRN PO NAUSEA OR VOMITING 11/26/17 02:45 Albuterol/ Ipratropium (Duoneb Neb) 1 ampule Q6HR NEB INH 11/26/17 04:00 11/28/17 08:21 Albuterol/ Ipratropium (Duoneb Neb) 1 ampule Q2HR NEB PRN INH WHEEZING 11/26/17 02:45 Miscellaneous Information [place] [facility] 1 Q361D XX 11/26/17 02:45 11/26/17 04:30 Chlorhexidine Gluconate (Chlorhexidine 2% Cloth) 3 pack Taper DAILY@04 TOP 11/26/17 04:00 11/22/18 03:59 11/28/17 04:00 Chlorhexidine Gluconate (Chlorhexidine 2% Cloth) 3 pack UNSCH PRN TOP HYGIENIC CARE 11/26/17 02:45 Senna/Docusate Sodium (Angella-Colace) 1 tab BID PO 11/26/17 09:00 11/28/17 09:42 Magnesium Hydroxide (Milk Of Magnesia Liq) 30 ml Q12H PRN PO Mild constipation 11/26/17 02:45 Sennosides (Senokot) 17.2 mg Q12H PRN PO Moderate constipation 11/26/17 02:45 Bisacodyl (Dulcolax Supp) 10 mg DAILY PRN RECTAL SEVERE CONSITIPATION 11/26/17 02:45 Lactulose (Lactulose Liq) 30 ml DAILY PRN PO SEVERE CONSITIPATION 11/26/17 02:45 Chlorhexidine Gluconate (Peridex 0.12% Liq) 15 ml BID@08,20 MT 11/26/17 08:00 11/28/17 08:26 Propofol 100 ml @ 3.45 mls/hr TITRATE PRN IV SEDATION 11/26/17 02:45 11/27/17 21:11 Methylprednisolone Sodium Succinate (SoluMEDROL INJ) 40 mg Q6HR IV PUSH 11/26/17 06:00 11/28/17 11:45 Cefepime HCl 2000 mg/Sodium Chloride 100 ml @ 200 mls/hr Q24H IV 11/26/17 04:00 11/28/17 04:13 Azithromycin 500 mg/Sodium Chloride 250 ml @ 250 mls/hr Q24H IV 11/26/17 03:00 11/28/17 04:12 Azithromycin (Zithromax) 1,200 mg Q7D PO 12/02/17 09:00 Amlodipine Besylate (Norvasc) 5 mg DAILY PO 11/27/17 10:00 11/28/17 09:42 Carvedilol (Coreg) 12.5 mg Q12H PO 11/27/17 10:00 11/28/17 09:42 Hydralazine HCl (Apresoline) 25 mg Q8H PO 11/27/17 10:00 11/28/17 09:42 Furosemide (Lasix Inj) 40 mg BID@ IV PUSH 11/27/17 18:00 11/28/17 09:41 Dextrose (D50w (Vial) Inj) 50 ml UNSCH PRN IV PUSH HYPOGLYCEMIA-SEE COMMENTS 11/27/17 09:45 Glucagon (Glucagon Inj) 1 mg UNSCH PRN OTHER HYPOGLYCEMIA-SEE COMMENTS 11/27/17 09:45 Insulin Aspart (NovoLOG SUPPLEMENTAL SCALE) 1 ACHS SLIDING SCALE SQ 11/27/17 12:00 11/28/17 12:12 Pharmacy Profile Note 0 ml @ 0 mls/hr UNSCH OTHER 11/27/17 16:45 Labetalol HCl (Trandate Inj) 10 mg Q6H PRN IV PUSH SBP>160, DBP>90 11/27/17 16:45 Sodium Bicarbonate 150 meq/Dextrose 1,000 ml @ 42 mls/hr [id number] IV 11/28/17 10:00 11/28/17 09:43 Objective: Vital Signs Date Time Temp Pulse Resp B/P (MAP) Pulse Ox O2 Delivery O2 Flow Rate FiO2 11/28/17 12:00 40 11/28/17 12:00 97.5 76 19 104/64 (77) 94 11/28/17 12:00 76 11/28/17 10:30 97 40 11/28/17 10:00 84 11/28/17 08:21 40 11/28/17 08:21 98 40 11/28/17 08:00 80 11/28/17 08:00 40 11/28/17 08:00 98.0 89 24 124/87 (99) 99 11/28/17 06:00 87 11/28/17 04:29 95 40 11/28/17 04:00 80 11/28/17 04:00 98.0 80 19 117/79 (92) 97 11/28/17 04:00 40 11/28/17 02:00 78 11/28/17 01:18 96 40 11/28/17 00:00 98.4 79 18 103/61 (75) 96 11/28/17 00:00 40 11/28/17 00:00 79 11/27/17 22:34 94 40 11/27/17 22:00 81 11/27/17 20:43 98 40 11/27/17 20:00 40 11/27/17 20:00 81 11/27/17 20:00 98.2 81 13 110/65 (80) 97 11/27/17 18:00 79 11/27/17 16:56 96 40 11/27/17 16:00 98.6 82 18 111/69 (83) 97 11/27/17 16:00 40 11/27/17 16:00 82 11/27/17 14:40 40 11/27/17 14:00 91 Laboratory Tests Test 11/27/17 06:25 11/28/17 03:05 White Blood Count 3.1 TH/MM3 2.3 TH/MM3 Red Blood Count 3.29 MIL/MM3 2.92 MIL/MM3 Hemoglobin 8.5 GM/DL 7.6 GM/DL Hematocrit 28.6 % 25.5 % Mean Corpuscular Volume 87.0 FL 87.2 FL Mean Corpuscular Hemoglobin 25.8 PG 26.0 PG Mean Corpuscular Hemoglobin Concent 29.7 % 29.8 % Red Cell Distribution Width 23.7 % 23.5 % Platelet Count 105 TH/MM3 104 TH/MM3 Mean Platelet Volume 8.3 FL 8.1 FL Neutrophils (%) (Auto) 88.4 % 88.1 % Lymphocytes (%) (Auto) 5.3 % 6.6 % Monocytes (%) (Auto) 4.5 % 3.9 % Eosinophils (%) (Auto) 0.3 % 0.2 % Basophils (%) (Auto) 1.5 % 1.2 % Neutrophils # (Auto) 2.8 TH/MM3 2.0 TH/MM3 Lymphocytes # (Auto) 0.2 TH/MM3 0.2 TH/MM3 Monocytes # (Auto) 0.1 TH/MM3 0.1 TH/MM3 Eosinophils # (Auto) 0.0 TH/MM3 0.0 TH/MM3 Basophils # (Auto) 0.0 TH/MM3 0.0 TH/MM3 CBC Comment DIFF FINAL AUTO DIFF Differential Comment FINAL DIFF MANUAL Differential Total Cells Counted 100 Neutrophils % (Manual) 91 % Band Neutrophils % 1 % Lymphocytes % 4 % Monocytes % 1 % Eosinophils % 3 % Neutrophils # (Manual) 2.1 TH/MM3 Nucleated Red Blood Cells 2 /100 WBC Platelet Estimate LOW Platelet Morphology Comment NORMAL Ovalocytes 1+ [place] Bodies PRESENT Laboratory Tests Test 11/27/17 06:25 11/27/17 15:19 11/28/17 03:05 Blood Urea Nitrogen 71 MG/DL 77 MG/DL Creatinine 3.94 MG/DL 4.24 MG/DL Random Glucose 262 MG/DL 192 MG/DL Total Protein 6.2 GM/DL 6.0 GM/DL Albumin 2.5 GM/DL 2.5 GM/DL Calcium Level 7.7 MG/DL 7.3 MG/DL Phosphorus Level 5.3 MG/DL 5.8 MG/DL Magnesium Level 2.1 MG/DL 2.2 MG/DL Alkaline Phosphatase 63 U/L 52 U/L Aspartate Amino Transf (AST/SGOT) 14 U/L 7 U/L Alanine Aminotransferase (ALT/SGPT) 22 U/L 17 U/L Total Bilirubin 0.8 MG/DL 0.4 MG/DL Sodium Level 139 MEQ/L 140 MEQ/L Potassium Level 5.9 MEQ/L 5.8 MEQ/L Chloride Level 103 MEQ/L 104 MEQ/L Carbon Dioxide Level 23.8 MEQ/L 24.8 MEQ/L Anion Gap 12 MEQ/L 11 MEQ/L Estimat Glomerular Filtration Rate 19 ML/MIN 18 ML/MIN Protein Corrected Calcium 8.2 MG/DL 7.9 MG/DL Microbiology Date/Time Source Procedure Growth Status 11/26/17 01:30 Blood Peripheral Aerobic Blood Culture - Preliminary NO GROWTH IN 2 DAYS Resulted 11/26/17 01:30 Blood Peripheral Anaerobic Blood Culture - Preliminary NO GROWTH IN 2 DAYS Resulted 11/26/17 01:25 Blood Peripheral Aerobic Blood Culture - Preliminary NO GROWTH IN 2 DAYS Resulted 11/26/17 01:25 Blood Peripheral Anaerobic Blood Culture - Preliminary NO GROWTH IN 2 DAYS Resulted 11/26/17 04:00 Sputum Endotracheal Gram Stain - Final Complete 11/26/17 04:00 Sputum Endotracheal Sputum Culture - Final HEAVY GROWTH NORMAL RESPIRATORY RONAN Complete 11/26/17 01:30 Urine Random Urine Urine Culture - Final <10,000 CFU/ML GRAM POSITIVE RONAN Complete Imaging: Chest X-Ray 11/28/17 0600 Signed Impressions: CONCLUSION: No significant interval change. Persistent bilateral lower lung zone predominan t ulnar opacity. Chest X-Ray 11/27/17 0000 Signed Impressions: CONCLUSION: No significant interval change. Persistent hazy bilateral lower lung zone opaci ty and cardiac silhouette enlargement. PHYSICAL EXAMINATION: GENERAL: Patient is on the ventilator. Sedated. HEENT: Unable to assess fully. Sclerae are pale. Oropharynx appear moist. NECK: No adenopathy or swelling. LUNGS: Decreased breath sounds. HEART: Regular S1 and S2. No audible murmur. ABDOMEN: Decreased bowel sounds, soft. No palpable mass. EXTREMITIES: Both thighs have thick granular tissue and the legs also have thickened liver-like soft tissue all the way down to the feet. The skin of the lower extremities are hyperpigmented. Otherwise, skin has no diffuse rash. NEUROLOGIC: Unable to assess. PSYCHIATRIC: Unable to assess. IMPRESSION: 1. Pneumonia. Chest x-ray opacity may also reflect CHF. 2. Acute respiratory failure. 3. Acquired immunodeficiency syndrome. Patient is currently on antiretroviral medications. 4. Chronic kidney disease, stage IV. Plans for dialysis being made. RECOMMENDATIONS: 1. Continue Cefepime. 2. Continue Azithromycin and atovaquone. 3. Continue HIV medications. 4. Monitor the clinical status. Raul Alexis MD Nov 28, 2017 13:18
--- NOTE | 2017-11-28 16:26 | HHI.NPPN ---
Subjective General Problems: Anemia, Edema, Hypertension Renal Failure: Chronic, Acute, Stage IV History of Present Illness 56-year-old male known to me from before with a past medical history of hypertension, HIV, COPD, chronic kidney disease stage IV, lymphedema of the legs, diabetes mellitus, congestive heart failure, sleep apnea, who came to the hospital with worsening shortness of breath. I was called to see the patient because of elevated BUN and creatinine. The patient has a known history of chronic kidney disease. Additional Remarks Patient remain on the vent. intubated and sedated. Objective Data Data 11/28/17 11/29/17 18:59 06:59 Intake Total 1620 ml Balance 1620 ml Intake IV Total 1620 ml Vital Signs Date Time Temp Pulse Resp B/P (MAP) Pulse Ox O2 Delivery O2 Flow Rate FiO2 11/28/17 16:00 97.6 75 18 109/70 (83) 94 11/28/17 16:00 75 11/28/17 16:00 40 11/28/17 14:00 78 11/28/17 12:00 40 11/28/17 12:00 97.5 76 19 104/64 (77) 94 11/28/17 12:00 76 11/28/17 10:30 97 40 11/28/17 10:00 84 11/28/17 08:21 40 11/28/17 08:21 98 40 11/28/17 08:00 80 11/28/17 08:00 40 11/28/17 08:00 98.0 89 24 124/87 (99) 99 11/28/17 06:00 87 11/28/17 04:29 95 40 11/28/17 04:00 80 11/28/17 04:00 98.0 80 19 117/79 (92) 97 11/28/17 04:00 40 11/28/17 02:00 78 11/28/17 01:18 96 40 11/28/17 00:00 98.4 79 18 103/61 (75) 96 11/28/17 00:00 40 11/28/17 00:00 79 11/27/17 22:34 94 40 11/27/17 22:00 81 11/27/17 20:43 98 40 11/27/17 20:00 40 11/27/17 20:00 81 11/27/17 20:00 98.2 81 13 110/65 (80) 97 11/27/17 18:00 79 11/27/17 16:56 96 40 -: 11/28/17 0305 11/28/17 0305 Physical Exam General Appearance: No Acute Distress, Comfortable Eyes Eye Exam: Pupils Equal Throat Throat Exam: Oral Mucosa [place] & Moist Pulmonary Resp Exam: Crackles, Rhonchi, Decreased Bases, Diminished Breath Sounds, Poor Inspiratory Effort Cardiology CV Exam: Regular, Normal Sinus Rhythm Gastrointestinal/Abdomen GI Exam: Soft, Non-Tender, Bowel Sounds Present, Distended Extremeties Extremities Exam: Pitting Edema, Dependent Edema Extremeties Remarks Bilateral lymph edema. Neurologic Neuro Exam: Sedated Assessment/Plan Assessment Summary: MARION/Acute Renal Failure, Anemia of CKD, Hypertension, CKD Stage IV Electrolyte Assessment: Hyperkalemia, Metabolic Acidosis Problem List: (1) pneumonia in a immunocompromise patient Status: Acute (2) Acute on chronic systolic (congestive) heart failure ICD Codes: I50.23 - Acute on chronic systolic (congestive) heart failure (3) Immunocompromised ICD Codes: D84.9 - Immunocompromised Status: Chronic (4) HIV (human immunodeficiency virus infection) ICD Codes: Z21 - HIV (human immunodeficiency virus infection) Status: Chronic (5) Stage 4 chronic kidney disease ICD Codes: N18.4 - Chronic kidney disease, stage 4 (severe) Plan: Patient has stage 4 chronic kidney disease. Now develop MARION, and Hyperkalemia, also has metabolic acidosis. Patient remain intubated, Urine out put is low. Need to start HD. D/W Dr. Bonds , to get Vascath. He got Arixta in AM. Given Calcium Gluconate and Vancomycin. HD and Vascath in AM. Continue Lasix, IV NaHco3 started. (6) Acute kidney injury ICD Codes: N17.9 - Acute kidney failure, unspecified Status: Acute (7) Hyperkalemia ICD Codes: E87.5 - Hyperkalemia Status: Acute (8) DM (diabetes mellitus) ICD Codes: E11.9 - DM (diabetes mellitus) Status: Chronic Millicent Ga MD Nov 28, 2017 16:26
[2017-11-29] VITALS (23 sets, daily range): BP systolic 109–143; BP diastolic 75–93; PULSE 74–87; RESP 18; TEMP 97–98.3; O2SAT 93–100
[2017-11-29] MEDS: PROPOFOL 1000 MG/100 ML INJ 100 ML IV PRN ×4 (00:25→21:02)
[2017-11-29] MEDS: RESP: ALBUTEROL 2.5 MG/IPRATROPIUM 0.5 MG NEB (SCH) INH ×4 (03:40→16:00)
[2017-11-29] MEDS: CHLORHEXIDINE GLUCONATE 2 % 1 PACK (2 CLOTHS) TOP SCH (04:00)
[2017-11-29] MEDS: hydrALAZINE HCL 25 MG TAB PO SCH ×3 (04:23→18:48)
[2017-11-29] MEDS: CEFEPIME INJ 2,000 MG in SODIUM CHLORIDE 0.9% INJ 100 ML IV SCH (04:24)
[2017-11-29] MEDS: methylPREDNISolone SOD SUCC 40 MG/1 ML VIAL IV PUSH SCH ×3 (04:25→18:48)
[2017-11-29] MEDS: GABAPENTIN 100 MG CAP PO SCH ×3 (04:25→21:01)
[2017-11-29] MEDS: AZITHROMYCIN INJ 500 MG in SODIUM CHLOR 0.9% 250 ML INJ 250 ML IV SCH (04:25)
[2017-11-29] MEDS: LEVOTHYROXINE SODIUM 50 MCG TAB PO SCH (04:26)
--- NOTE | 2017-11-29 05:09 | RADRPT ---
EXAM DATE: 11/29/2017 4:55 AM EDT AGE/SEX: 56 years / Male INDICATIONS: Respiratory failure. CLINICAL DATA: This is the patient's subsequent encounter. Patient reports that signs and symptoms h ave been present for 1 week and indicates a pain score of Nonresponsive. MEDICAL/SURGICAL HISTORY: None. None. COMPARISON: [facility] – [place], CHEST SINGLE AP, 11/28/2017. . FINDINGS: ET tube is well placed. The NG tube is directed into the stomach. The cardiac silhouette is enlarged. There appears to be a pacing lead seen over the right heart. There is diffuse increased density seen in the lungs. CONCLUSION: Cardiomegaly. Diffuse increased density throughout the lungs consistent with diffuse consolidation/edema and suspec elo bilateral effusions. Electronically signed by: Daniel Sifuentes MD 11/29/2017 5:07 AM EDT
[2017-11-29] MEDS: TIOTROPIUM BROMIDE 18 MCG INH INH SCH (07:34)
[2017-11-29] MEDS: RALTEGRAVIR 400 MG TAB PO SCH ×2 (07:34→21:01)
[2017-11-29] MEDS: RITONAVIR 100 MG TAB PO SCH (07:35)
[2017-11-29] MEDS: DOCUSATE SODIUM 50 MG/SENNA 8.6 MG TAB PO SCH ×2 (07:35→21:01)
[2017-11-29] MEDS: SODIUM CHLORIDE 0.9% FLUSH 10 ML FLUSH IV FLUSH SCH ×2 (07:46→21:00)
[2017-11-29] MEDS: CHLORHEXIDINE 0.12% (ORAL KIT) 15 ML CUP MT SCH ×2 (07:46→21:00)
[2017-11-29] MEDS: ARTIFICIAL TEARS OPTH SOLN 15 ML BTL EACH EYE SCH ×3 (07:46→16:29)
[2017-11-29] MEDS: SODIUM BICARBONATE 8.4% INJ 150 MEQ in DEXTROSE 5% IN WATE 1000ML INJ 850 ML IV SCH ×2 (08:44)
[2017-11-29] MEDS: amLODIPine BESYLATE 5 MG TAB PO SCH (09:00)
[2017-11-29] MEDS: FUROSEMIDE 40 MG/4 ML VIAL IV PUSH SCH ×2 (09:00→18:48)
[2017-11-29] MEDS ORDERED: LIDOCAINE 1%/EPINEPHrine 1:100,000 SOLN 20 ML VIAL ONE (09:13)
[2017-11-29] MEDS ORDERED: SODIUM CHLORIDE 0.9% FLUSH 10 ML FLUSH IV FLUSH PRN ×2 (10:00→10:45)
[2017-11-29] MEDS ORDERED: HEPARIN SODIUM - IV 2,000 UNITS/2 ML VIAL IV FLUSH PRN (10:00)
[2017-11-29] MEDS: CARVEDILOL 12.5 MG TAB PO SCH ×2 (10:00→21:01)
--- NOTE | 2017-11-29 10:00 | RADRPT ---
EXAM DATE: 11/29/2017 9:50 AM EDT AGE/SEX: 56 years / Male INDICATIONS: Patient with history of chronic kidney disease in need of non tunneled dialysis cathete r placement. CLINICAL DATA: This is the patient's subsequent encounter. Patient reports that signs and symptoms h ave been present for 3 days and indicates a pain score of Nonresponsive. MEDICAL/SURGICAL HISTORY: Hypertension. HIV. Chronic obstructive pulmonary disease. MRSA.Lym phoma.Chronic lymphedema.CAD.CHF.GERD.Hepatitis.MD.Diabetes Cardiac surgery.Graft to right upper leg. Dialysis catheter COMPARISON: No prior exams available for comparison. IMAGE SERIES: ACCESS SITE: Right internal jugular vein DEVICE(S): 14 Persian double lumen Schon catheter [id number] . . PROCEDURE : 1. Ultrasound guided venipuncture. 2. Fluoroscopic guidance. 3. Central line placement. The risks, benefits and alternatives to the procedure were explained and verbal and written consent w as obtained. The site was prepped in sterile fashion. Full sterile technique was used, including ca p, mask, sterile gloves and gown and a large sterile sheet. Hand hygiene and 2% chlorhexidine prep w as utilized per protocol for cutaneous antisepsis with appropriate dry time for site. Sterile gel an d sterile probe cover were utilized for ultrasound guidance. The skin and subcutaneous tissues were infiltrated with local anesthetic solution. A suitable site a shantanu the vein was selected with ultrasound guidance. A small incision was made. The vein was access ed under direct ultrasound visualization using the micropuncture technique. The micropuncture set wa s exchanged for a 0.035 wire. The tract was dilated. The catheter was advanced into position. The catheter was fixed in place with suture and a sterile dressing was applied. The patient tolerated the procedure well and there were no complications. Postprocedure chest radiogr aph reveals good positioning of the line. The line can be used immediately. CONCLUSION: Uncomplicated ultrasound guided central venous dialysis line placement as above. Electronically signed by: Daniel Flores MD 11/29/2017 9:59 AM EDT
[2017-11-29] MEDS: INSULIN ASPART SUPPLEMENTAL SCALE SQ SCH ×4 (10:28→21:51)
[2017-11-29] MEDS: QUEtiapine FUMARATE 25 MG TAB PO SCH ×2 (10:29→21:01)
[2017-11-29] MEDS: MULTIVITAMIN TAB PO SCH (10:29)
[2017-11-29] MEDS: ASCORBIC ACID 500 MG TAB PO SCH ×2 (10:29→21:01)
[2017-11-29] MEDS: ATOVAQUONE SUSP 750 MG/5 ML UDC PO SCH (10:29)
[2017-11-29] MEDS: FAMOTIDINE 20 MG TAB PO SCH (10:29)
[2017-11-29] MEDS: ETRAVIRINE 100 MG TAB PO SCH ×2 (10:29→21:01)
[2017-11-29] MEDS ORDERED: SODIUM CHLOR 0.9% 1000 ML INJ 1,000 ML OTHER PRN ×2 (10:31)
[2017-11-29] MEDS ORDERED: SODIUM CHLOR 0.9% 1000 ML INJ 1,000 ML IV PRN (10:31)
--- NOTE | 2017-11-29 10:37 | RADRPT ---
EXAM DATE: 11/29/2017 10:05 AM EDT AGE/SEX: 56 years / Male INDICATIONS: Central line placement. CLINICAL DATA: This is the patient's subsequent encounter. Patient reports that signs and symptoms h ave been present for 3 days and indicates a pain score of Nonresponsive. MEDICAL/SURGICAL HISTORY: Congestive heart failure. Chronic obstructive pulmonary disease. Di abetes. Myocardial infarction. Pacemaker. COMPARISON: [facility] – [place], CHEST SINGLE AP, 11/29/2017. . FINDINGS: ET tube in good position. Dialysis catheter in good position from the right. Nasogastric tube across the GE junction. Defibrillator is evident. Cardiomegaly with moderate interstitial edema and bilateral small pleural effusions. CONCLUSION: Dialysis catheter in good position. Moderate fluid overload. Electronically signed by: Sung Phillips MD 11/29/2017 10:35 AM EDT
[2017-11-29] MEDS ORDERED: ACETAMINOPHEN 325 MG TAB PO PRN (10:45)
[2017-11-29] MEDS ORDERED: MANNITOL 12.5 GM/50 ML VIAL IV PRN (10:45)
[2017-11-29] MEDS ORDERED: diphenhydrAMINE HCL 25 MG CAP PO PRN (10:45)
[2017-11-29] MEDS ORDERED: HEPARIN SODIUM - IV 10,000 UNITS/10 ML VIAL IV FLUSH PRN ×2 (10:45)
[2017-11-29] MEDS ORDERED: HEPARIN SODIUM - IV 10,000 UNITS/10 ML VIAL PRN (10:45)
[2017-11-29] MEDS ORDERED: ONDANSETRON ODT 4 MG TAB PO PRN (10:45)
[2017-11-29] MEDS ORDERED: GELATIN 12 MM/7 MM FOAM TOP PRN (10:45)
[2017-11-29] MEDS ORDERED: ALBUMIN 25% INJ 100 ML IV PRN (10:45)
[2017-11-29] MEDS ORDERED: cloNIDine HCL 0.1 MG TAB PO PRN (10:45)
[2017-11-29] MEDS ORDERED: NITROGLYCERIN 0.4 MG SL 25 TABS/BTL SL PRN (10:45)
--- NOTE | 2017-11-29 10:53 | HHI.NPPN ---
Subjective General Problems: Anemia, Edema, Hypertension Renal Failure: Chronic, Acute, Stage IV History of Present Illness 56-year-old male known to me from before with a past medical history of hypertension, HIV, COPD, chronic kidney disease stage IV, lymphedema of the legs, diabetes mellitus, congestive heart failure, sleep apnea, who came to the hospital with worsening shortness of breath. I was called to see the patient because of elevated BUN and creatinine. The patient has a known history of chronic kidney disease. Additional Remarks Patient remain on the vent. intubated and sedated. S/P vas cath placement. (Sameera Rudd) Review of Systems General General Remarks unable to do review of system as patient is intubated. (Sameera Rudd) Objective Data Data Vital Signs Date Time Temp Pulse Resp B/P (MAP) Pulse Ox O2 Delivery O2 Flow Rate FiO2 11/29/17 10:38 98.2 84 18 130/88 (102) 93 11/29/17 10:10 98.2 87 18 133/92 (106) 94 11/29/17 10:00 87 11/29/17 09:10 100 100 11/29/17 08:00 40 11/29/17 08:00 83 11/29/17 08:00 97.7 83 18 129/91 (104) 98 11/29/17 06:00 81 11/29/17 05:01 97 40 11/29/17 04:00 40 11/29/17 04:00 76 11/29/17 04:00 97.0 76 18 124/86 (99) 100 11/29/17 02:00 74 11/29/17 01:31 100 40 11/29/17 00:00 97.6 74 18 117/79 (92) 100 11/29/17 00:00 40 11/29/17 00:00 74 11/28/17 22:00 69 11/28/17 21:39 97 40 11/28/17 20:00 97.6 69 18 111/76 (88) 96 11/28/17 20:00 73 11/28/17 20:00 40 11/28/17 18:00 73 11/28/17 17:37 98 40 11/28/17 16:00 97.6 75 18 109/70 (83) 94 11/28/17 16:00 75 11/28/17 16:00 40 11/28/17 14:00 78 11/28/17 12:00 40 11/28/17 12:00 97.5 76 19 104/64 (77) 94 11/28/17 12:00 76 (Sameera Rudd) -: 11/28/17 0305 11/28/17 0305 Imaging Last Impressions Catheter Placement X-Ray 11/29/17 0737 Signed Impressions: CONCLUSION: Uncomplicated ultrasound guided central venous dialysis line placement as above . Chest X-Ray 11/29/17 0600 Signed Impressions: CONCLUSION: Cardiomegaly. Diffuse increased density throughout the lungs consistent with diffuse consolid ation/edema and suspected bilateral effusions. (Sameera Rudd) Physical Exam General Appearance: No Acute Distress, Comfortable (Sameera Rudd) Eyes Eye Exam: Pupils Equal (Sameera Rudd) Throat Throat Exam: Oral Mucosa [place] & Moist (Sameera Rudd) Pulmonary Resp Exam: Crackles, Rhonchi, Decreased Bases, Diminished Breath Sounds, Poor Inspiratory Effort (Sameera Rudd) Cardiology CV Exam: Regular, Normal Sinus Rhythm (Sameera Rudd) Gastrointestinal/Abdomen GI Exam: Soft, Non-Tender, Bowel Sounds Present, Distended (Sameera Rudd) Extremeties Extremities Exam: Pitting Edema, Dependent Edema (Sameera Rudd) Neurologic Neuro Exam: Sedated (Sameera Rudd) Assessment/Plan Assessment Summary: MARION/Acute Renal Failure, Anemia of CKD, Hypertension, CKD Stage IV Electrolyte Assessment: Hyperkalemia, Metabolic Acidosis Problem List: (1) pneumonia in a immunocompromise patient Status: Acute (2) Acute on chronic systolic (congestive) heart failure ICD Codes: I50.23 - Acute on chronic systolic (congestive) heart failure (3) Immunocompromised ICD Codes: D84.9 - Immunocompromised Status: Chronic (4) HIV (human immunodeficiency virus infection) ICD Codes: Z21 - HIV (human immunodeficiency virus infection) Status: Chronic (5) Stage 4 chronic kidney disease ICD Codes: N18.4 - Chronic kidney disease, stage 4 (severe) Plan: Patient has stage 4 chronic kidney disease. Now develop MARION, and Hyperkalemia, also has metabolic acidosis. Patient remains intubated s/p vas cath placement 6/15 Creatinine at 4.24 and potassium of 5.8, oliguria with UOP of 200 ml/24 hours Plans for hemodialysis at bedside today, patient fluid overloaded. Orders placed. Calcium gluconate/sodium bicarbonate ordered for hyperkalemia (6) Acute kidney injury ICD Codes: N17.9 - Acute kidney failure, unspecified Status: Acute (7) Hyperkalemia ICD Codes: E87.5 - Hyperkalemia Status: Acute (8) DM (diabetes mellitus) ICD Codes: E11.9 - DM (diabetes mellitus) Status: Chronic (Sameera Rudd) Problem List: (1) pneumonia in a immunocompromise patient Status: Acute (2) Acute on chronic systolic (congestive) heart failure ICD Codes: I50.23 - Acute on chronic systolic (congestive) heart failure (3) Immunocompromised ICD Codes: D84.9 - Immunocompromised Status: Chronic (4) HIV (human immunodeficiency virus infection) ICD Codes: Z21 - HIV (human immunodeficiency virus infection) Status: Chronic (5) Stage 4 chronic kidney disease ICD Codes: N18.4 - Chronic kidney disease, stage 4 (severe) Plan: Patient has stage 4 chronic kidney disease. Now develop MARION, and Hyperkalemia, also has metabolic acidosis. Patient remains intubated s/p vas cath placement 6/15 Creatinine at 4.24 and potassium of 5.8, oliguria with UOP of 200 ml/24 hours Plans for hemodialysis at bedside today, patient fluid overloaded. Orders placed. Calcium gluconate/sodium bicarbonate ordered for hyperkalemia. Patient seen and examined, agree with above. started on HD, seen during HD. Tolerating well. (6) Acute kidney injury ICD Codes: N17.9 - Acute kidney failure, unspecified Status: Acute (7) Hyperkalemia ICD Codes: E87.5 - Hyperkalemia Status: Acute (8) DM (diabetes mellitus) ICD Codes: E11.9 - DM (diabetes mellitus) Status: Chronic (Millicent Ga MD) Sameera Rudd Nov 29, 2017 10:53 Millicent Ga MD Nov 30, 2017 12:19
[2017-11-29] MEDS ORDERED: SODIUM BICARBONATE 8.4% INJ 50 MEQ/50 ML SYR IV PUSH ONE (11:00)
[2017-11-29] MEDS ORDERED: CALCIUM GLUCONATE 10% 1 GM/10 ML VIAL IV PUSH ONE (11:00)
--- NOTE | 2017-11-29 12:17 | HHI.IDPN ---
Note Infectious Disease Note Patient is sedated on the ventilator. Opens eyes and becomes agitated. Afebrile. Because white blood cell count. First hemodialysis treatment planned for today. This is a 56-year-old black male who was brought to the emergency department from [facility] because of respiratory distress. The patient was noted to be tachypneic with a respiratory rate of 40 and he was intubated. Consult requested for HIV/AIDS. PAST MEDICAL HISTORY: 1. Hypertension. 2. AIDS. 3. Diabetes mellitus. 5. Chronic kidney disease. 6. Congestive heart failure. 7. Ischemic heart disease. 8. Hepatitis B. 9. AICD. 10. Rectal surgery. 11. Obstructive sleep apnea. ALLERGIES: 1. CAPTOPRIL. 2. BENAZEPRIL. 3. ENALAPRILAT. 4. FOSINOPRIL. 5. LISINOPRIL. 6. QUINAPRIL. MEDICATIONS: Current Medications Medications (Trade) Dose Ordered Sig/Kaela Route PRN Reason Start Time Stop Time Status Last Admin Dose Admin Propofol 100 ml @ 0 mls/hr TITRATE PRN IV SEDATION 11/26/17 02:15 11/29/17 04:26 Ascorbic Acid (Vitamin C) 500 mg BID PO 11/26/17 09:00 11/29/17 10:29 Atovaquone (Mepron Liq) 1,500 mg DAILY PO 11/26/17 09:00 11/29/17 10:29 Bumetanide (Bumetanide) 1 mg DAILY PO 11/26/17 09:00 Future Hold 11/27/17 07:59 Famotidine (Pepcid) 20 mg DAILY PO 11/26/17 09:00 11/29/17 10:29 Fondaparinux (Arixtra Inj) 5 mg Q24H SQ 11/26/17 06:00 Future Hold 11/28/17 07:21 Gabapentin (Neurontin) 200 mg Q8HR PO 11/26/17 06:00 11/29/17 04:25 Levothyroxine Sodium (Synthroid) 50 mcg DAILY@0600 PO 11/26/17 09:00 11/29/17 04:26 Lorazepam (Ativan) 1 mg Q4H PRN PO for severe anxiety or dyspnea 11/26/17 02:30 Quetiapine Fumarate (SEROquel) 25 mg BID PO 11/26/17 09:00 11/29/17 10:29 Raltegravir (Isentress) 400 mg BID PO 11/26/17 09:00 11/28/17 22:49 Ritonavir (Norvir) 100 mg DAILY PO 11/26/17 09:00 11/27/17 07:59 Tiotropium [place] (Spiriva Inh) 18 mcg DAILY INH 11/26/17 09:00 Etravirine (Intelence) 200 mg BID PO 11/26/17 09:00 11/29/17 10:29 Multivitamins (Theragran) 1 tab DAILY PO 11/26/17 09:00 11/29/17 10:29 Sodium Chloride (NS Flush) 2 ml UNSCH PRN IV FLUSH FLUSH AFTER USING IV ACCESS 11/26/17 02:45 Sodium Chloride (NS Flush) 2 ml BID IV FLUSH 11/26/17 09:00 11/29/17 07:46 Acetaminophen (Tylenol) 650 mg Q6H PRN PO PAIN 1-5 AND/OR FEVER >101F 11/26/17 02:45 Hydromorphone HCl (Dilaudid Pf Inj) 1 mg Q4H PRN IV PUSH PAIN SCALE 6 TO 10 11/26/17 02:45 Midazolam HCl (Versed Inj) 2 mg Q1H PRN IV PUSH SEDATION 11/26/17 02:45 Artificial Tears (Tears Naturale Opth Soln) 1 drop TID EACH EYE 11/26/17 09:00 11/29/17 07:46 Ondansetron HCl (Zofran Odt) 4 mg Q6H PRN PO NAUSEA OR VOMITING 11/26/17 02:45 Albuterol/ Ipratropium (Duoneb Neb) 1 ampule Q6HR NEB INH 11/26/17 04:00 11/29/17 03:40 Albuterol/ Ipratropium (Duoneb Neb) 1 ampule Q2HR NEB PRN INH WHEEZING 11/26/17 02:45 Miscellaneous Information ([facility] [place] [facility] Information) 1 Q361D XX 11/26/17 02:45 11/26/17 04:30 Chlorhexidine Gluconate (Chlorhexidine 2% Cloth) 3 pack Taper DAILY@04 TOP 11/26/17 04:00 11/22/18 03:59 11/29/17 04:00 Chlorhexidine Gluconate (Chlorhexidine 2% Cloth) 3 pack UNSCH PRN TOP HYGIENIC CARE 11/26/17 02:45 Senna/Docusate Sodium (Angella-Colace) 1 tab BID PO 11/26/17 09:00 11/28/17 22:49 Magnesium Hydroxide (Milk Of Magnesia Liq) 30 ml Q12H PRN PO Mild constipation 11/26/17 02:45 Sennosides (Senokot) 17.2 mg Q12H PRN PO Moderate constipation 11/26/17 02:45 Bisacodyl (Dulcolax Supp) 10 mg DAILY PRN RECTAL SEVERE CONSITIPATION 11/26/17 02:45 Lactulose (Lactulose Liq) 30 ml DAILY PRN PO SEVERE CONSITIPATION 11/26/17 02:45 Chlorhexidine Gluconate (Peridex 0.12% Liq) 15 ml BID@08,20 MT 11/26/17 08:00 11/29/17 07:46 Propofol 100 ml @ 3.45 mls/hr TITRATE PRN IV SEDATION 11/26/17 02:45 11/27/17 21:11 Methylprednisolone Sodium Succinate (SoluMEDROL INJ) 40 mg Q6HR IV PUSH 11/26/17 06:00 11/29/17 10:29 Cefepime HCl 2000 mg/Sodium Chloride 100 ml @ 200 mls/hr Q24H IV 11/26/17 04:00 11/29/17 04:24 Azithromycin 500 mg/Sodium Chloride 250 ml @ 250 mls/hr Q24H IV 11/26/17 03:00 11/29/17 04:25 Azithromycin (Zithromax) 1,200 mg Q7D PO 12/02/17 09:00 Amlodipine Besylate (Norvasc) 5 mg DAILY PO 11/27/17 10:00 11/28/17 09:42 Carvedilol (Coreg) 12.5 mg Q12H PO 11/27/17 10:00 11/28/17 22:50 Hydralazine HCl (Apresoline) 25 mg Q8H PO 11/27/17 10:00 11/29/17 04:23 Furosemide (Lasix Inj) 40 mg BID@ IV PUSH 11/27/17 18:00 11/28/17 16:35 Dextrose (D50w (Vial) Inj) 50 ml UNSCH PRN IV PUSH HYPOGLYCEMIA-SEE COMMENTS 11/27/17 09:45 Glucagon (Glucagon Inj) 1 mg UNSCH PRN OTHER HYPOGLYCEMIA-SEE COMMENTS 11/27/17 09:45 Insulin Aspart (NovoLOG SUPPLEMENTAL SCALE) 1 ACHS SLIDING SCALE SQ 11/27/17 12:00 11/29/17 10:28 Pharmacy Profile Note 0 ml @ 0 mls/hr UNSCH OTHER 11/27/17 16:45 Labetalol HCl (Trandate Inj) 10 mg Q6H PRN IV PUSH SBP>160, DBP>90 11/27/17 16:45 Sodium Bicarbonate 150 meq/Dextrose 1,000 ml @ 42 mls/hr [id number] IV 11/28/17 10:00 11/29/17 08:44 Sodium Chloride (NS Flush) UNSCH PRN IV FLUSH SEE PROTOCOL 11/29/17 10:00 Heparin Sodium (Porcine) (Heparin Inj) UNSCH PRN IV FLUSH SEE PROTOCOL 11/29/17 10:00 Sodium Chloride 1,000 ml @ 0 mls/hr Q0M PRN OTHER For Prime & Rinse Back 11/29/17 10:31 Heparin Sodium (Porcine) (Heparin Inj) 8,000 units UNSCH PRN IV FLUSH WITH DIALYSIS 11/29/17 10:45 Heparin Sodium (Porcine) (Heparin Inj) 1,000 units Q1H PRN IV FLUSH WITH DIALYSIS 11/29/17 10:45 Sodium Chloride 1,000 ml @ 200 mls/hr Q5H PRN IV WITH DIALYSIS 11/29/17 10:31 Sodium Chloride 1,000 ml @ 0 mls/hr Q0M PRN OTHER WITH DIALYSIS 11/29/17 10:31 Mannitol (Mannitol Inj) 12.5 gm UNSCH PRN IV WITH DIALYSIS 11/29/17 10:45 Albumin Human 100 ml @ 60 mls/hr UNSCH PRN IV WITH DIALYSIS 11/29/17 10:45 Sodium Chloride (NS Flush) 5 ml UNSCH PRN IV FLUSH WITH DIALYSIS 11/29/17 10:45 Heparin Sodium (Porcine) (Heparin Inj) UNSCH PRN .XX WITH DIALYSIS 11/29/17 10:45 Gentamicin Sulfate (Gentamicin Inj) 20 mg UNSCH PRN OTHER WITH DIALYSIS 11/29/17 10:45 Ondansetron HCl (Zofran Odt) 4 mg UNSCH PRN PO WITH DIALYSIS 11/29/17 10:45 Acetaminophen (Tylenol) 650 mg UNSCH PRN PO for headach, pain, temp > 101F 11/29/17 10:45 Diphenhydramine HCl (Benadryl) 25 mg UNSCH PRN PO for hives/itching/anaphylaxis 11/29/17 10:45 Nitroglycerin (Nitrostat Sl) 0.4 mg UNSCH PRN SL CHEST PAIN 11/29/17 10:45 Clonidine (Catapres) 0.1 mg UNSCH PRN PO for BP > 180/100 X 2 readings 11/29/17 10:45 Epoetin Oz (Epogen Inj) 10,000 units UNSCH PRN IV PUSH WITH DIALYSIS 11/29/17 10:45 Gelatin (Gelfoam 12 Mm/7 Mm Top) 1 foam UNSCH PRN TOP SEE LABEL COMMENTS 11/29/17 10:45 Objective: Vital Signs Date Time Temp Pulse Resp B/P (MAP) Pulse Ox O2 Delivery O2 Flow Rate FiO2 11/29/17 10:38 98.2 84 18 130/88 (102) 93 11/29/17 10:10 98.2 87 18 133/92 (106) 94 11/29/17 10:00 87 11/29/17 09:10 100 100 11/29/17 08:00 40 11/29/17 08:00 83 11/29/17 08:00 97.7 83 18 129/91 (104) 98 11/29/17 06:00 81 11/29/17 05:01 97 40 11/29/17 04:00 40 11/29/17 04:00 76 11/29/17 04:00 97.0 76 18 124/86 (99) 100 11/29/17 02:00 74 11/29/17 01:31 100 40 11/29/17 00:00 97.6 74 18 117/79 (92) 100 11/29/17 00:00 40 11/29/17 00:00 74 11/28/17 22:00 69 11/28/17 21:39 97 40 11/28/17 20:00 97.6 69 18 111/76 (88) 96 11/28/17 20:00 73 11/28/17 20:00 40 11/28/17 18:00 73 11/28/17 17:37 98 40 11/28/17 16:00 97.6 75 18 109/70 (83) 94 11/28/17 16:00 75 11/28/17 16:00 40 11/28/17 14:00 78 Laboratory Tests Test 11/28/17 03:05 White Blood Count 2.3 TH/MM3 Red Blood Count 2.92 MIL/MM3 Hemoglobin 7.6 GM/DL Hematocrit 25.5 % Mean Corpuscular Volume 87.2 FL Mean Corpuscular Hemoglobin 26.0 PG Mean Corpuscular Hemoglobin Concent 29.8 % Red Cell Distribution Width 23.5 % Platelet Count 104 TH/MM3 Mean Platelet Volume 8.1 FL Neutrophils (%) (Auto) 88.1 % Lymphocytes (%) (Auto) 6.6 % Monocytes (%) (Auto) 3.9 % Eosinophils (%) (Auto) 0.2 % Basophils (%) (Auto) 1.2 % Neutrophils # (Auto) 2.0 TH/MM3 Lymphocytes # (Auto) 0.2 TH/MM3 Monocytes # (Auto) 0.1 TH/MM3 Eosinophils # (Auto) 0.0 TH/MM3 Basophils # (Auto) 0.0 TH/MM3 CBC Comment AUTO DIFF Differential Total Cells Counted 100 Neutrophils % (Manual) 91 % Band Neutrophils % 1 % Lymphocytes % 4 % Monocytes % 1 % Eosinophils % 3 % Neutrophils # (Manual) 2.1 TH/MM3 Nucleated Red Blood Cells 2 /100 WBC Differential Comment FINAL DIFF MANUAL Platelet Estimate LOW Platelet Morphology Comment NORMAL Ovalocytes 1+ [place]val[place] Bodies PRESENT Laboratory Tests Test 11/27/17 15:19 11/28/17 03:05 Blood Urea Nitrogen 77 MG/DL Creatinine 4.24 MG/DL Random Glucose 192 MG/DL Total Protein 6.0 GM/DL Albumin 2.5 GM/DL Calcium Level 7.3 MG/DL Phosphorus Level 5.8 MG/DL Magnesium Level 2.2 MG/DL Alkaline Phosphatase 52 U/L Aspartate Amino Transf (AST/SGOT) 7 U/L Alanine Aminotransferase (ALT/SGPT) 17 U/L Total Bilirubin 0.4 MG/DL Sodium Level 140 MEQ/L Potassium Level 5.8 MEQ/L Chloride Level 104 MEQ/L Carbon Dioxide Level 24.8 MEQ/L Anion Gap 11 MEQ/L Estimat Glomerular Filtration Rate 18 ML/MIN Protein Corrected Calcium 7.9 MG/DL Imaging: Catheter Placement X-Ray 11/29/17 0737 Signed Impressions: CONCLUSION: Uncomplicated ultrasound guided central venous dialysis line placement as above . Chest X-Ray 11/29/17 06 Signed Impressions: CONCLUSION: Cardiomegaly. Diffuse increased density throughout the lungs consistent with diffuse consolid ation/edema and suspected bilateral effusions. Chest X-Ray 11/28/17 06 Signed Impressions: CONCLUSION: No significant interval change. Persistent bilateral lower lung zone predominan t ulnar opacity. Chest X-Ray 11/27/17 0000 Signed Impressions: CONCLUSION: No significant interval change. Persistent hazy bilateral lower lung zone opaci ty and cardiac silhouette enlargement. PHYSICAL EXAMINATION: GENERAL: Patient is on the ventilator. Sedated. Appears to be agitated. HEENT: Extraocular movements intact. His reactive to light. Sclerae are pale. Oropharynx appear moist. NECK: No adenopathy or swelling. LUNGS: Decreased breath sounds. HEART: Regular S1 and S2. No audible murmur. ABDOMEN: Decreased bowel sounds, soft. No palpable mass. EXTREMITIES: Both thighs have thick granular tissue and the legs also have thickened liver-like soft tissue all the way down to the feet. The skin of the lower extremities are hyperpigmented. Otherwise, skin has no diffuse rash. NEUROLOGIC: Unable to assess. PSYCHIATRIC: Unable to assess. IMPRESSION: 1. Pneumonia. Chest x-ray opacity may also reflect CHF. 2. Acute respiratory failure. 3. Acquired immunodeficiency syndrome. Patient is currently on antiretroviral medications. 4. Chronic kidney disease, stage IV. Also has acute kidney disease. Dialysis planned. RECOMMENDATIONS: 1. Continue Cefepime. 2. Continue Azithromycin. 3. Continue HIV medications. 4. Monitor the clinical status. Raul Alexis MD Nov 29, 2017 12:17
[2017-11-29] MEDS: GENTAMICIN SULFATE 20 MG/2 ML VIAL OTHER PRN (13:14)
[2017-11-29] MEDS: EPOETIN ALFA 10,000 UNITS/ML VIAL IV PUSH PRN (13:14)
[2017-11-29 13:57] LABS: HEMATOCRIT 27.3 % (39.0-51.0); HEMOGLOBIN 8.4 GM/DL (13.0-17.0); MEAN CELL VOLUME 84.4 FL (80.0-100.0); MEAN CORPUSCULAR HEMOGLOBIN 25.9 PG (27.0-34.0); MEAN CORPUSCULAR HGB CONC 30.6 % (32.0-36.0); MEAN PLATELET VOLUME 8.4 FL (7.0-11.0); PLATELET COUNT 115 TH/MM3 (150-450); RED BLOOD COUNT 3.23 MIL/MM3 (4.50-5.90); RED CELL DISTRIBUTION WIDTH 23.1 % (11.6-17.2); WHITE BLOOD COUNT 3.3 TH/MM3 (4.0-11.0)
[2017-11-29 15:11] LABS: BANDS 8 % (0-6); CORRECTED NUCLEATED RBC 2 /100 WBC (0-0); LYMPHOCYTES 2 % (9-44); MONOCYTES 2 % (0-8); NEUTROPHIL # MANUAL DIFF 3.2 TH/MM3 (1.8-7.7); NUCLEATED RED BLOOD CELL 2 (0-0); OVALOCYTES 1+ (NORMAL); POLYS (SEG NEUTROPHILS) 88 % (16-70); TEARDROP RBCS 1+ (NORMAL)
[2017-11-29] MEDS: ARGATROBAN 250 MG in NS 250 ML IV PRN (16:29)
--- NOTE | 2017-11-29 16:55 | HHI.CCPN ---
Subjective Remarks/Hospital Course 56 year old male with COPD requiring nasal CPAP, HIV, hepatitis, and MRSA presents with a history of shortness of breath that had been progressively getting worse over the last 24 hours. The patient is currently a resident at [facility]. According to ambulance service, the patient was on hospice which was recently revoked. Upon ambulance arrival the patient was noted to be tachypneic with a respiratory rate in the 40s, O2 saturations were reportedly at 90% on nasal CPAP. The patient's GCS was diminished to 9 whereas the patient's normal GCS is 15. The patient was provided Versed 4 mg IV, etomidate 20 mg IV and intubated with an endotracheal tube, size 7-1/2. The patient had an OG tube placed. The patient was given normal saline 1500 mL in route to this facility. On arrival, the patient not have any spontaneous respiratory activity noted. Subjective: 11/27: Patient was noted to be hypertensive during the night. Patient scheduled antihypertensive medications reinitiated. Daily sedation vacation patient following commands. The patient tolerated CPAP trials for 3 hours. Her last admission the patient was noted to have heparin platelet antibody positive antigen. Serotonin release assay pending. Fondaparinux 5 mg every 24 hours continued. Patient noted to have elevated potassium level this a.m. 80 mg Lasix IV given patient initiated him on 40 mg twice daily. 11/28: Afebrile. Noted potassium 5.8 this morning creatinine slightly more elevated 4.24 sodium bicarbonate infusion initiated at 42 cc/hr. invasive radiology consulted for Vas-Cath placement scheduled for 11/29/2017. Arixtra has been placed on hold. The patient continues on CPAP trials greater than 3 hours this a.m.. Repeat BMP this afternoon. 11/29: The patient underwent Vas-Cath placement with IR early this a.m..Patient has heparin antibody platelets the patient is unable to utilize heparin flush for dialysis catheter. Argatroban infusion initiated for prophylaxis, and maintenance of Vas-Cath. This was discussed with pharmacology and nephrology. Vancomycin discontinued, Dr. Alexis aware. Patient underwent hemodialysis sodium bicarbonate infusion discontinued. Arixtra discontinued now as contraindicated in the setting of renal failure. Objective Vital Signs Date Time Temp Pulse Resp B/P (MAP) Pulse Ox O2 Delivery O2 Flow Rate FiO2 11/29/17 15:58 97 40 11/29/17 14:00 84 11/29/17 12:08 97.8 18 133/93 (106) 11/26/17 04:10 Ventilator Intake and Output 11/29/17 11/29/17 11/30/17 08:00 16:00 00:00 Intake Total 1350 ml Output Total 101 ml 2500 ml Balance 1249 ml -2500 ml Result Diagram: 11/29/17 1310 11/28/17 0305 Imaging Last Impressions Catheter Placement X-Ray 11/29/17 0737 Signed Impressions: CONCLUSION: Uncomplicated ultrasound guided central venous dialysis line placement as above . Chest X-Ray 11/29/17 0600 Signed Impressions: CONCLUSION: Cardiomegaly. Diffuse increased density throughout the lungs consistent with diffuse consolid ation/edema and suspected bilateral effusions. Last Impressions Chest X-Ray 11/27/17 0000 Signed Impressions: CONCLUSION: No significant interval change. Persistent hazy bilateral lower lung zone opaci ty and cardiac silhouette enlargement. Last 24 hours Impressions Chest X-Ray 11/26/17 0119 Signed Impressions: CONCLUSION: Endotracheal tube and nasogastric tube now in place. No other significant inter mee change with persistent bilateral lower lung zone parenchymal opacity. Objective Remarks GENERAL: Obese -Polish male appearing older than stated age intubated and sedated SKIN: Warm and dry. HEAD: Normocephalic. EYES: No scleral icterus. No injection or drainage. NECK: Supple, trachea midline. No JVD or lymphadenopathy. CARDIOVASCULAR: Regular rate and rhythm without murmurs, gallops, or rubs. RESPIRATORY: Breath sounds equal bilaterally. No accessory muscle use. GASTROINTESTINAL: Abdomen soft, non-tender, nondistended. MUSCULOSKELETAL: No cyanosis, The right lower extremity has 3+ edema, lymphedema noted. The left lower extremity 1+ edema. 1+edema of the upper extremities. Scrotal edema BACK: Nontender without obvious deformity. NEURO EXAM: Mental Status: RASS -2. On daily sedation vacation patient following commands moves extremities 4. A/P Assessment and Plan Plan by systems: Neurologic: Depression Metabolic toxicity -Seroquel -continued -11/27 CT head negative -Neuro checks per unit protocol -Daily sedation vacation Respiratory: Respiratory failure COPD Pneumonia-HCAP - 11/26 Intubated for an airway protection -Vent bundle -DuoNeb scheduled and as needed -IV steroids continued -ABG and CXR as clinically indicated -ID following-vancomycin discontinued 11/29 -Continue CPAP trials Cardiovascular: Hypertension -Borderline blood pressure -Hold Norvasc Coreg and hydralazine -Resume when indicated Renal: Acute on chronic kidney injury Acute renal failure -Strict I's and O -Sodium bicarbonate infusion discontinued -11/29 Vas-Cath placement hemodialysis initiated 2.5 L removed -Monitor electrolytes and creatinine levels -- Strict I/Os FEN/GI: Electrolyte abnormality Hypocalcemia Hyperkalemia -Monitor electrolytes and creatinine levels --Continue Nepro tube feeds --Continue Lasix twice daily --Consult nephrology --Replete electrolytes per ICU protocol -Nephrology following Dr. Ga -Repeat BMP Heme/ID: HIV/AIDS Hepatitis C SIRS/sepsis -Monitor LFTs and liver function -Continue home meds- HAART -Iccentress and Norvir held unable to crush and place thru G tube, Intelence continued -Immunocompromised patient -Further recommendations per ID Endocrine: Hypothyroid -Levothyroxine -- SSI Prophylaxis: DVT GI prophylaxis - SCD to left lower extremity -Patient now placed on Argatroban infusion for prophylaxis patient was hepatitis platelet antibody positive, NICHOLAS pending -Pepcid Lines: Peripheral IVs x 2. Central line if indicated Dispo: my billing statement This patient remains critically ill with one or more organ systems which are or may become a threat to life. I have spent in excess of 30 minutes discontinuously in the care and management of this patient. This time is exclusive of procedures, and includes, but is not limited to, evaluation of the patient, review of the medical record, discussions with family, consultants, nursing staff, or respiratory therapy, and documentation in the medical record. Physician Carmelina Carney MD Nov 29, 2017 16:55
[2017-11-29 21:05] LABS: ALBUMIN 2.6 GM/DL (3.4-5.0); AST (GOT) 9 U/L (15-37); BLOOD UREA NITROGEN 85 MG/DL (7-18); CALCIUM 7.6 MG/DL (8.5-10.1); CHLORIDE 103 MEQ/L (98-107); CREATININE 4.66 MG/DL (0.60-1.30); GLOMERULAR FILTRATION RATE 16 ML/MIN (>89); GLUCOSE,RANDOM 208 MG/DL (74-106); MAGNESIUM 2.3 MG/DL (1.5-2.5); SODIUM (NA) 140 MEQ/L (136-145)
[2017-11-29 21:10] LABS: ALKALINE PHOSPHATASE 47 U/L (45-117); ALT (GPT) 19 U/L (12-78); BICARBONATE 24.3 MEQ/L (21.0-32.0); PHOSPHORUS 5.6 MG/DL (2.5-4.9); RANDOM VANCOMYCIN 31.1 COMMENT; TOTAL BILIRUBIN ADULT 0.6 MG/DL (0.2-1.0); TOTAL PROTEIN 6.3 GM/DL (6.4-8.2)
[2017-11-30] VITALS (19 sets, daily range): BP systolic 117–149; BP diastolic 80–103; PULSE 70–87; RESP 18; TEMP 97.6–99; O2SAT 92–100
[2017-11-30] MEDS: hydrALAZINE HCL 25 MG TAB PO SCH ×3 (03:09→18:27)
[2017-11-30] MEDS: AZITHROMYCIN INJ 500 MG in SODIUM CHLOR 0.9% 250 ML INJ 250 ML IV SCH (03:09)
[2017-11-30] MEDS: PROPOFOL 1000 MG/100 ML INJ 100 ML IV PRN ×6 (03:10→22:07)
[2017-11-30] MEDS: methylPREDNISolone SOD SUCC 40 MG/1 ML VIAL IV PUSH SCH ×5 (03:21→23:17)
[2017-11-30] MEDS: CEFEPIME INJ 2,000 MG in SODIUM CHLORIDE 0.9% INJ 100 ML IV SCH (03:56)
[2017-11-30] MEDS: CHLORHEXIDINE GLUCONATE 2 % 1 PACK (2 CLOTHS) TOP SCH (04:00)
[2017-11-30] MEDS: GABAPENTIN 100 MG CAP PO SCH ×3 (04:47→22:07)
[2017-11-30] MEDS: LEVOTHYROXINE SODIUM 50 MCG TAB PO SCH (04:48)
--- NOTE | 2017-11-30 05:10 | RADRPT ---
EXAM DATE: 11/30/2017 4:52 AM EDT AGE/SEX: 56 years / Male INDICATIONS: Shortness of breath, possible pulmonary disease. CLINICAL DATA: This is the patient's subsequent encounter. Patient reports that signs and symptoms h ave been present for 4 - 6 days and indicates a pain score of Nonresponsive. MEDICAL/SURGICAL HISTORY: Congestive heart failure. Chronic obstructive pulmonary disease. Di abetes. ND Pacemaker. COMPARISON: [facility] – [place], CHEST SINGLE AP, 11/29/2017. . FINDINGS: A single AP view of the chest demonstrates moderate enlargement of the cardiac silhouette. Nasogastri c tube, endotracheal tube and right jugular central line are stable in position. Bibasilar airspace d isease with probable small pleural effusions. Left-sided defibrillator, stable. The cardiomediastinal contours are unremarkable. Osseous structures are intact. CONCLUSION: Cardiomegaly with bibasilar airspace disease and probable small pleural effusions. No significant chapis nge. Electronically signed by: Manuelito Clemons MD 11/30/2017 5:08 AM EDT
[2017-11-30 06:05] LABS: HEMATOCRIT 29.4 % (39.0-51.0); HEMOGLOBIN 9.3 GM/DL (13.0-17.0); MEAN CELL VOLUME 82.6 FL (80.0-100.0); MEAN CORPUSCULAR HEMOGLOBIN 26.1 PG (27.0-34.0); MEAN CORPUSCULAR HGB CONC 31.6 % (32.0-36.0); MEAN PLATELET VOLUME 8.6 FL (7.0-11.0); PLATELET COUNT 105 TH/MM3 (150-450); RED BLOOD COUNT 3.56 MIL/MM3 (4.50-5.90); RED CELL DISTRIBUTION WIDTH 22.8 % (11.6-17.2)
[2017-11-30 06:52] LABS: ALBUMIN 2.2 GM/DL (3.4-5.0); BICARBONATE 19.8 MEQ/L (21.0-32.0); CALCIUM 7.2 MG/DL (8.5-10.1); CALCIUM-PROTEIN CORRECTED 7.6 MG/DL (8.5-10.1); CREATININE 4.87 MG/DL (0.60-1.30); MAGNESIUM 2.2 MG/DL (1.5-2.5); PHOSPHORUS 5.9 MG/DL (2.5-4.9); TOTAL BILIRUBIN ADULT 0.7 MG/DL (0.2-1.0); TOTAL PROTEIN 6.4 GM/DL (6.4-8.2)
[2017-11-30] MEDS: CHLORHEXIDINE 0.12% (ORAL KIT) 15 ML CUP MT SCH ×2 (08:00→22:04)
[2017-11-30] MEDS: INSULIN ASPART SUPPLEMENTAL SCALE SQ SCH ×4 (08:00→23:17)
[2017-11-30 08:34] LABS: BANDS 3 % (0-6); CORRECTED NUCLEATED RBC 1 /100 WBC (0-0); LYMPHOCYTES 1 % (9-44); MONOCYTES 9 % (0-8); NEUTROPHIL # MANUAL DIFF 2.7 TH/MM3 (1.8-7.7); NUCLEATED RED BLOOD CELL 1 (0-0); POLYS (SEG NEUTROPHILS) 87 % (16-70)
[2017-11-30] MEDS: ARTIFICIAL TEARS OPTH SOLN 15 ML BTL EACH EYE SCH ×3 (09:00→18:00)
[2017-11-30] MEDS: ETRAVIRINE 100 MG TAB PO SCH ×2 (09:00→22:05)
[2017-11-30] MEDS: ASCORBIC ACID 500 MG TAB PO SCH ×2 (09:00→22:05)
[2017-11-30] MEDS: MULTIVITAMIN TAB PO SCH (09:00)
[2017-11-30] MEDS: TIOTROPIUM BROMIDE 18 MCG INH INH SCH (09:00)
[2017-11-30] MEDS: amLODIPine BESYLATE 5 MG TAB PO SCH (09:00)
[2017-11-30] MEDS: DOCUSATE SODIUM 50 MG/SENNA 8.6 MG TAB PO SCH ×2 (09:00→22:05)
[2017-11-30] MEDS: FUROSEMIDE 40 MG/4 ML VIAL IV PUSH SCH ×2 (09:00→18:27)
[2017-11-30] MEDS: FAMOTIDINE 20 MG TAB PO SCH (09:00)
[2017-11-30] MEDS: RITONAVIR 100 MG TAB PO SCH (09:00)
[2017-11-30] MEDS: RALTEGRAVIR 400 MG TAB PO SCH ×2 (09:00→22:06)
[2017-11-30] MEDS: QUEtiapine FUMARATE 25 MG TAB PO SCH ×2 (09:00→22:05)
[2017-11-30] MEDS: SODIUM CHLORIDE 0.9% FLUSH 10 ML FLUSH IV FLUSH SCH ×2 (09:00→22:05)
[2017-11-30] MEDS: ATOVAQUONE SUSP 750 MG/5 ML UDC PO SCH (09:00)
[2017-11-30] MEDS: CARVEDILOL 12.5 MG TAB PO SCH ×2 (10:00→22:07)
--- NOTE | 2017-11-30 13:52 | HHI.NPPN ---
Subjective General Problems: Anemia, Edema, Hypertension Renal Failure: Chronic, Acute, Stage IV History of Present Illness 56-year-old male known to me from before with a past medical history of hypertension, HIV, COPD, chronic kidney disease stage IV, lymphedema of the legs, diabetes mellitus, congestive heart failure, sleep apnea, who came to the hospital with worsening shortness of breath. I was called to see the patient because of elevated BUN and creatinine. The patient has a known history of chronic kidney disease. Additional Remarks Patient remains on the vent. intubated and sedated. He is unresponsive. Hyperkalemia is noted. Dialysis today. Review of Systems General General Remarks unable to do review of system as patient is intubated. Objective Data Data Vital Signs Date Time Temp Pulse Resp B/P (MAP) Pulse Ox O2 Delivery O2 Flow Rate FiO2 11/30/17 13:04 97 40 11/30/17 09:45 92 40 11/30/17 06:00 84 11/30/17 04:57 98 40 11/30/17 04:00 40 11/30/17 04:00 87 11/30/17 04:00 98.6 87 18 149/103 (118) 97 11/30/17 02:00 81 11/30/17 00:08 98 40 11/30/17 00:00 75 11/30/17 00:00 40 11/30/17 00:00 98.6 75 18 128/94 (105) 100 11/29/17 22:00 79 11/29/17 21:11 98 40 11/29/17 20:00 98.3 79 18 143/85 (104) 100 11/29/17 20:00 79 11/29/17 20:00 40 11/29/17 18:00 75 11/29/17 16:00 76 11/29/17 16:00 98.0 76 18 109/75 (86) 97 11/29/17 16:00 40 11/29/17 15:58 97 40 11/29/17 14:00 84 -: 11/30/17 0458 11/30/17 0458 Physical Exam General Appearance: No Acute Distress, Comfortable Eyes Eye Exam: Pupils Equal Throat Throat Exam: Oral Mucosa [place] & Moist Pulmonary Resp Exam: Crackles, Rhonchi, Decreased Bases, Diminished Breath Sounds, Poor Inspiratory Effort Cardiology CV Exam: Regular, Normal Sinus Rhythm Gastrointestinal/Abdomen GI Exam: Soft, Non-Tender, Bowel Sounds Present, Distended Extremeties Extremities Exam: Pitting Edema, Dependent Edema Neurologic Neuro Exam: Sedated Assessment/Plan Assessment Summary: MARION/Acute Renal Failure, Anemia of CKD, Hypertension, CKD Stage IV Electrolyte Assessment: Hyperkalemia, Metabolic Acidosis Problem List: (1) Acute kidney injury ICD Codes: N17.9 - Acute kidney failure, unspecified Status: Acute Plan: patient with hyperkalemia. Dialysis today. Monitor. Avoid nephrotoxic agents. (2) Stage 4 chronic kidney disease ICD Codes: N18.4 - Chronic kidney disease, stage 4 (severe) Plan: Patient has stage 4 chronic kidney disease. Now develop MARION, and Hyperkalemia, also has metabolic acidosis. Patient remains intubated s/p vas cath placement 11/29 Creatinine at 4.24 and potassium of 5.8, oliguria with UOP of 200 ml/24 hours Plans for hemodialysis at bedside today, patient fluid overloaded. Orders placed. Calcium gluconate/sodium bicarbonate ordered for hyperkalemia. Patient seen and examined, agree with above. started on HD, seen during HD. Tolerating well. (3) pneumonia in a immunocompromise patient Status: Acute (4) Acute on chronic systolic (congestive) heart failure ICD Codes: I50.23 - Acute on chronic systolic (congestive) heart failure (5) Immunocompromised ICD Codes: D84.9 - Immunocompromised Status: Chronic (6) HIV (human immunodeficiency virus infection) ICD Codes: Z21 - HIV (human immunodeficiency virus infection) Status: Chronic (7) Hyperkalemia ICD Codes: E87.5 - Hyperkalemia Status: Acute (8) DM (diabetes mellitus) ICD Codes: E11.9 - DM (diabetes mellitus) Status: Chronic Plan: insulin coverage, maintain blood glucose between 140 and 180 Plan prognosis is guarded. Rico Leon MD Nov 30, 2017 13:52
--- NOTE | 2017-11-30 17:39 | HHI.CCPN ---
Subjective Remarks/Hospital Course 56 year old male with COPD requiring nasal CPAP, HIV, hepatitis, and MRSA presents with a history of shortness of breath that had been progressively getting worse over the last 24 hours. The patient is currently a resident at [facility]. According to ambulance service, the patient was on hospice which was recently revoked. Upon ambulance arrival the patient was noted to be tachypneic with a respiratory rate in the 40s, O2 saturations were reportedly at 90% on nasal CPAP. The patient's GCS was diminished to 9 whereas the patient's normal GCS is 15. The patient was provided Versed 4 mg IV, etomidate 20 mg IV and intubated with an endotracheal tube, size 7-1/2. The patient had an OG tube placed. The patient was given normal saline 1500 mL in route to this facility. On arrival, the patient not have any spontaneous respiratory activity noted. Subjective: 11/27: Patient was noted to be hypertensive during the night. Patient scheduled antihypertensive medications reinitiated. Daily sedation vacation patient following commands. The patient tolerated CPAP trials for 3 hours. Her last admission the patient was noted to have heparin platelet antibody positive antigen. Serotonin release assay pending. Fondaparinux 5 mg every 24 hours continued. Patient noted to have elevated potassium level this a.m. 80 mg Lasix IV given patient initiated him on 40 mg twice daily. 11/28: Afebrile. Noted potassium 5.8 this morning creatinine slightly more elevated 4.24 sodium bicarbonate infusion initiated at 42 cc/hr. invasive radiology consulted for Vas-Cath placement scheduled for 11/29/2017. Arixtra has been placed on hold. The patient continues on CPAP trials greater than 3 hours this a.m.. Repeat BMP this afternoon. 11/29: The patient underwent Vas-Cath placement with IR early this a.m..Patient has heparin antibody platelets the patient is unable to utilize heparin flush for dialysis catheter. Argatroban infusion initiated for prophylaxis, and maintenance of Vas-Cath. This was discussed with pharmacology and nephrology. Vancomycin discontinued, Dr. Alexis aware. Patient underwent hemodialysis sodium bicarbonate infusion discontinued. Arixtra discontinued now as contraindicated in the setting of renal failure. 11/30: no improvements or changes. was previously on hospice: overall this gentleman with multiple medical comorbidities is acutely critically ill- may likely not survive this hospitalization. Objective Vital Signs Date Time Temp Pulse Resp B/P (MAP) Pulse Ox O2 Delivery O2 Flow Rate FiO2 11/30/17 16:23 96 40 11/30/17 16:00 99.0 72 121/82 (95) 11/30/17 04:00 18 Intake and Output 11/30/17 11/30/17 12/01/17 08:00 16:00 00:00 Intake Total 560 ml Output Total 151 ml Balance 409 ml Result Diagram: 11/30/17 0458 11/30/17 0458 Imaging Last Impressions Catheter Placement X-Ray 11/29/17 0737 Signed Impressions: CONCLUSION: Uncomplicated ultrasound guided central venous dialysis line placement as above . Chest X-Ray 11/29/17 0600 Signed Impressions: CONCLUSION: Cardiomegaly. Diffuse increased density throughout the lungs consistent with diffuse consolid ation/edema and suspected bilateral effusions. Last Impressions Chest X-Ray 11/27/17 0000 Signed Impressions: CONCLUSION: No significant interval change. Persistent hazy bilateral lower lung zone opaci ty and cardiac silhouette enlargement. Last 24 hours Impressions Chest X-Ray 11/26/17 0119 Signed Impressions: CONCLUSION: Endotracheal tube and nasogastric tube now in place. No other significant inter mee change with persistent bilateral lower lung zone parenchymal opacity. Objective Remarks GENERAL: Obese -Belgian male appearing older than stated age intubated and sedated SKIN: Warm and dry. HEAD: Normocephalic. EYES: No scleral icterus. No injection or drainage. NECK: Supple, trachea midline. No JVD. CARDIOVASCULAR: Regular rate and rhythm without murmurs, gallops, or rubs. RESPIRATORY: Breath sounds equal bilaterally. No accessory muscle use. GASTROINTESTINAL: Abdomen soft, non-tender, nondistended. MUSCULOSKELETAL: No cyanosis, The right lower extremity has 3+ edema, lymphedema noted. The left lower extremity 1+ edema. 1+edema of the upper extremities. Scrotal edema NEURO EXAM:RASS -2. does not follow commands. withdraws to pain. A/P Assessment and Plan Plan by systems: Neurologic: Depression Metabolic encephalopathy -Seroquel -continued -11/27 CT head negative -Neuro checks per unit protocol -Daily sedation vacation Respiratory: Acute hypoxic and hypercarbic Respiratory failure COPD Pneumonia-HCAP - 11/26 Intubated -Vent bundle -DuoNeb scheduled and as needed -IV steroids continued -ABG and CXR as clinically indicated -ID following-vancomycin discontinued 11/29 -Continue CPAP trials: fails for hypoxia and tachypnea Cardiovascular: Hypertension -Borderline blood pressure -Hold Norvasc Coreg and hydralazine -Resume when indicated Renal: Acute kidney injury superimposed on chronic kidney disease, unknown stage Acute renal failure -Strict I's and O -Sodium bicarbonate infusion discontinued -11/29 Vas-Cath placement hemodialysis initiated 2.5 L removed -Monitor electrolytes and creatinine levels -- Strict I/Os FEN/GI: Electrolyte abnormality Hypocalcemia Hyperkalemia -Monitor electrolytes and creatinine levels --Continue Nepro tube feeds --Consult nephrology --Replete electrolytes per ICU protocol -Nephrology following Dr. Ga -Repeat BMP Heme/ID: HIV/AIDS Hepatitis C SIRS/sepsis -Monitor LFTs and liver function -Continue home meds- HAART -Iccentress and Norvir held unable to crush and place thru G tube, Intelence continued -Immunocompromised patient -Further recommendations per ID Endocrine: Hypothyroid -Levothyroxine -- SSI Prophylaxis: DVT GI prophylaxis - SCD to left lower extremity -Patient now placed on Argatroban infusion for prophylaxis patient was hepatitis platelet antibody positive, NICHOLAS pending -Pepcid Lines: Peripheral IVs x 2. will consult palliative care: likely not to survive this hospitalization. This patient remains critically ill with one or more organ systems which are or may become a threat to life. I have spent in excess of 33 minutes discontinuously in the care and management of this patient. This time is exclusive of procedures, and includes, but is not limited to, evaluation of the patient, review of the medical record, discussions with family, consultants, nursing staff, or respiratory therapy, and documentation in the medical record. Yefri Talavera MD Nov 30, 2017 17:39
[2017-11-30] MEDS: EPOETIN ALFA 10,000 UNITS/ML VIAL IV PUSH PRN (18:26)
[2017-11-30] MEDS: GENTAMICIN SULFATE 20 MG/2 ML VIAL OTHER PRN (18:26)
[2017-11-30] MEDS: ARGATROBAN 250 MG in NS 250 ML IV PRN (23:07)
[2017-12-01] VITALS (27 sets, daily range): BP systolic 110–137; BP diastolic 67–94; PULSE 67–79; RESP 18; TEMP 97.6–98.4; O2SAT 94–100
[2017-12-01] MEDS: PROPOFOL 1000 MG/100 ML INJ 100 ML IV PRN ×9 (00:19→22:02)
[2017-12-01] MEDS: hydrALAZINE HCL 25 MG TAB PO SCH ×3 (02:49→17:45)
[2017-12-01] MEDS: CHLORHEXIDINE GLUCONATE 2 % 1 PACK (2 CLOTHS) TOP SCH (04:00)
[2017-12-01] MEDS: AZITHROMYCIN INJ 500 MG in SODIUM CHLOR 0.9% 250 ML INJ 250 ML IV SCH (04:04)
[2017-12-01] MEDS: CEFEPIME INJ 2,000 MG in SODIUM CHLORIDE 0.9% INJ 100 ML IV SCH (05:08)
[2017-12-01] MEDS: GABAPENTIN 100 MG CAP PO SCH ×3 (05:09→21:19)
[2017-12-01] MEDS: methylPREDNISolone SOD SUCC 40 MG/1 ML VIAL IV PUSH SCH ×2 (05:09→20:18)
[2017-12-01] MEDS: LEVOTHYROXINE SODIUM 50 MCG TAB PO SCH (05:09)
[2017-12-01] MEDS: ETRAVIRINE 100 MG TAB PO SCH ×2 (08:00→20:18)
[2017-12-01] MEDS: MULTIVITAMIN TAB PO SCH (08:00)
[2017-12-01] MEDS: FAMOTIDINE 20 MG TAB PO SCH (08:00)
[2017-12-01] MEDS: ATOVAQUONE SUSP 750 MG/5 ML UDC PO SCH (08:00)
[2017-12-01] MEDS: CHLORHEXIDINE 0.12% (ORAL KIT) 15 ML CUP MT SCH ×2 (08:00→19:20)
[2017-12-01] MEDS: QUEtiapine FUMARATE 25 MG TAB PO SCH ×2 (08:00→20:19)
[2017-12-01] MEDS: SODIUM CHLORIDE 0.9% FLUSH 10 ML FLUSH IV FLUSH SCH ×2 (08:01→20:18)
[2017-12-01] MEDS: ASCORBIC ACID 500 MG TAB PO SCH ×2 (08:01→20:19)
[2017-12-01] MEDS: amLODIPine BESYLATE 5 MG TAB PO SCH (08:01)
[2017-12-01] MEDS: RALTEGRAVIR 400 MG TAB PO SCH ×2 (08:01→20:18)
[2017-12-01] MEDS: ARTIFICIAL TEARS OPTH SOLN 15 ML BTL EACH EYE SCH ×3 (08:01→17:45)
[2017-12-01] MEDS: RITONAVIR 100 MG TAB PO SCH (08:01)
[2017-12-01] MEDS: FUROSEMIDE 40 MG/4 ML VIAL IV PUSH SCH ×2 (08:01→17:44)
[2017-12-01] MEDS: DOCUSATE SODIUM 50 MG/SENNA 8.6 MG TAB PO SCH ×2 (09:00→20:19)
--- NOTE | 2017-12-01 09:20 | HHI.NPPN ---
Subjective General Problems: Anemia, Edema, Hypertension Renal Failure: Chronic, Acute, Stage IV History of Present Illness 56-year-old male known to me from before with a past medical history of hypertension, HIV, COPD, chronic kidney disease stage IV, lymphedema of the legs, diabetes mellitus, congestive heart failure, sleep apnea, who came to the hospital with worsening shortness of breath. I was called to see the patient because of elevated BUN and creatinine. The patient has a known history of chronic kidney disease. Additional Remarks Remains intubated. 5 liters removed in dialysis yesterday. Review of Systems General General Remarks unable to do review of system as patient is intubated. Objective Data Data Vital Signs Date Time Temp Pulse Resp B/P (MAP) Pulse Ox O2 Delivery O2 Flow Rate FiO2 12/01/17 08:39 97 40 12/01/17 08:00 70 12/01/17 06:00 68 12/01/17 04:31 100 40 12/01/17 04:00 69 12/01/17 04:00 98.2 69 18 117/81 (93) 100 12/01/17 04:00 40 12/01/17 02:00 67 12/01/17 00:00 40 12/01/17 00:00 97.6 78 18 120/86 (97) 98 12/01/17 00:00 78 11/30/17 23:50 97 40 11/30/17 22:20 99 40 11/30/17 22:00 84 11/30/17 20:00 97.6 81 18 127/89 (102) 100 11/30/17 20:00 40 11/30/17 20:00 81 11/30/17 18:00 79 11/30/17 16:23 96 40 11/30/17 16:00 99.0 72 121/82 (95) 96 11/30/17 16:00 40 11/30/17 16:00 72 11/30/17 14:00 40 11/30/17 14:00 70 11/30/17 13:04 97 40 11/30/17 12:00 73 11/30/17 12:00 40 11/30/17 12:00 98.4 73 117/80 (92) 95 11/30/17 10:00 76 11/30/17 10:00 40 6/16/18 09:45 92 40 -: 11/30/17 0458 11/30/17 0458 Physical Exam General Appearance: No Acute Distress, Comfortable Eyes Eye Exam: Pupils Equal Throat Throat Exam: Oral Mucosa [place] & Moist Pulmonary Resp Exam: Crackles, Rhonchi, Decreased Bases, Diminished Breath Sounds, Poor Inspiratory Effort Cardiology CV Exam: Regular, Normal Sinus Rhythm Gastrointestinal/Abdomen GI Exam: Soft, Non-Tender, Bowel Sounds Present, Distended Extremeties Extremities Exam: Pitting Edema, Dependent Edema Neurologic Neuro Exam: Sedated Assessment/Plan Assessment Summary: MARION/Acute Renal Failure, Anemia of CKD, Hypertension, CKD Stage IV Electrolyte Assessment: Hyperkalemia, Metabolic Acidosis Problem List: (1) Acute kidney injury ICD Codes: N17.9 - Acute kidney failure, unspecified Status: Acute Plan: Dialyzed yesterday. Repeat labs ordered. Monitor. (2) Stage 4 chronic kidney disease ICD Codes: N18.4 - Chronic kidney disease, stage 4 (severe) Plan: Patient has stage 4 chronic kidney disease. Now develop MARION, and Hyperkalemia, also has metabolic acidosis. Patient remains intubated s/p vas cath placement 11/29 (3) pneumonia in a immunocompromise patient Status: Acute (4) Acute on chronic systolic (congestive) heart failure ICD Codes: I50.23 - Acute on chronic systolic (congestive) heart failure (5) Immunocompromised ICD Codes: D84.9 - Immunocompromised Status: Chronic (6) HIV (human immunodeficiency virus infection) ICD Codes: Z21 - HIV (human immunodeficiency virus infection) Status: Chronic (7) Hyperkalemia ICD Codes: E87.5 - Hyperkalemia Status: Acute (8) DM (diabetes mellitus) ICD Codes: E11.9 - DM (diabetes mellitus) Status: Chronic Plan: insulin coverage, maintain blood glucose between 140 and 180 Plan prognosis is guarded. Rico Leon MD Dec 01, 2017 09:20
[2017-12-01] MEDS: CARVEDILOL 12.5 MG TAB PO SCH ×2 (10:04→21:19)
[2017-12-01] MEDS: INSULIN ASPART SUPPLEMENTAL SCALE SQ SCH ×4 (10:04→20:19)
[2017-12-01] MEDS ORDERED: RESP: ALBUTEROL 2.5 MG/3 ML NEB (PRN) NEB (10:45)
[2017-12-01] MEDS ORDERED: fentaNYL DRIP 250 ML IV PRN (10:45)
[2017-12-01] MEDS ORDERED: ACETAMINOPHEN 650 MG/20.3 ML UDC PO PRN (10:45)
--- NOTE | 2017-12-01 11:47 | HHI.CCPN ---
Subjective Remarks/Hospital Course 56 year old male with COPD requiring nasal CPAP, HIV, hepatitis, and MRSA presents with a history of shortness of breath that had been progressively getting worse over the last 24 hours. The patient is currently a resident at [facility]. According to ambulance service, the patient was on hospice which was recently revoked. Upon ambulance arrival the patient was noted to be tachypneic with a respiratory rate in the 40s, O2 saturations were reportedly at 90% on nasal CPAP. The patient's GCS was diminished to 9 whereas the patient's normal GCS is 15. The patient was provided Versed 4 mg IV, etomidate 20 mg IV and intubated with an endotracheal tube, size 7-1/2. The patient had an OG tube placed. The patient was given normal saline 1500 mL in route to this facility. On arrival, the patient not have any spontaneous respiratory activity noted. 11/27: Patient was noted to be hypertensive during the night. Patient scheduled antihypertensive medications reinitiated. Daily sedation vacation patient following commands. The patient tolerated CPAP trials for 3 hours. Her last admission the patient was noted to have heparin platelet antibody positive antigen. Serotonin release assay pending. Fondaparinux 5 mg every 24 hours continued. Patient noted to have elevated potassium level this a.m. 80 mg Lasix IV given patient initiated him on 40 mg twice daily. 11/28: Afebrile. Noted potassium 5.8 this morning creatinine slightly more elevated 4.24 sodium bicarbonate infusion initiated at 42 cc/hr. invasive radiology consulted for Vas-Cath placement scheduled for 11/29/2017. Arixtra has been placed on hold. The patient continues on CPAP trials greater than 3 hours this a.m.. Repeat BMP this afternoon. 11/29: The patient underwent Vas-Cath placement with IR early this a.m..Patient has heparin antibody platelets the patient is unable to utilize heparin flush for dialysis catheter. Argatroban infusion initiated for prophylaxis, and maintenance of Vas-Cath. This was discussed with pharmacology and nephrology. Vancomycin discontinued, Dr. Alexis aware. Patient underwent hemodialysis sodium bicarbonate infusion discontinued. Arixtra discontinued now as contraindicated in the setting of renal failure. 11/30: no improvements or changes. was previously on hospice: overall this gentleman with multiple medical comorbidities is acutely critically ill- may likely not survive this hospitalization. Subjective: 12/01: Afebrile. Off all vasopressors been very poor access peripherally for blood draws. Certain release assay is negative. Will discontinue her gastric band drip. Previous he had a right cephalic thrombus/superficial. Platelets currently greater than 100,000. Objective Vital Signs Date Time Temp Pulse Resp B/P (MAP) Pulse Ox O2 Delivery O2 Flow Rate FiO2 12/01/17 10:16 100 40 12/01/17 08:00 70 12/01/17 04:00 98.2 18 117/81 (93) Intake and Output 12/01/17 12/01/17 12/02/17 08:00 16:00 00:00 Intake Total 845 ml Output Total 2643 ml Balance -1798 ml Result Diagram: 11/30/17 0458 11/30/17 0458 Other Results Microbiology Date/Time Source Procedure Growth Status 11/26/17 01:30 Blood Peripheral Aerobic Blood Culture - Final NO GROWTH IN 5 DAYS Complete 11/26/17 01:30 Blood Peripheral Anaerobic Blood Culture - Final NO GROWTH IN 5 DAYS Complete 11/26/17 04:00 Sputum Endotracheal Gram Stain - Final Complete 11/26/17 04:00 Sputum Endotracheal Sputum Culture - Final HEAVY GROWTH NORMAL RESPIRATORY RONAN Complete 11/26/17 01:30 Urine Random Urine Urine Culture - Final <10,000 CFU/ML GRAM POSITIVE RONAN Complete Imaging Last Impressions Chest X-Ray 11/30/17 0600 Signed Impressions: CONCLUSION: Cardiomegaly with bibasilar airspace disease and probable small pleural effusio ns. No significant change. Catheter Placement X-Ray 11/29/17 0737 Signed Impressions: CONCLUSION: Uncomplicated ultrasound guided central venous dialysis line placement as above . Objective Remarks GENERAL: 56-year-old AA male currently orotracheally intubated SKIN: Warm and dry. Sacral decubitus ulcer noted HEAD: Normocephalic. EYES: Pupils are about 2 mm and reactive bilaterally with upward gaze. No scleral icterus. No injection or drainage. NECK: Supple, trachea midline. No JVD. CARDIOVASCULAR: RRR. S1, S2. No S4. Without murmur RESPIRATORY: Distant breath sounds. Breath sounds equal bilaterally. No accessory muscle use. GASTROINTESTINAL: Abdomen soft, non-tender, nondistended. MUSCULOSKELETAL: The right lower extremity has 3+ edema, lymphedema noted. Currently with severely wrinkled skin the left lower extremity 1+ edema. 1+ edema of the upper extremities. Scrotal edema NEURO EXAM:RASS -2. Cranial nerves II through XII appear to be grossly intact. In all 4 extremities patient withdraws to pain but not following commands. Positive gag/cough and corneal reflex. 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, oxycodone 5 mg every 6 hours as needed Holding gabapentin 200 mg every 8 hours Continue quetiapine 25 mg twice daily -11/27 CT brain revealed no acute cranial findings -Neuro checks per unit protocol Holding lorazepam 1 mg every 4 hours as needed anxiety Respiratory: Acute hypoxic and hypercarbic Respiratory failure COPD Pneumonia-HCAP Obstructive sleep apnea Severe pulmonary hypertension PRVC 18//06/21/39 -Vent bundle Albuterol/ipratropium aerosols every 4 hours with albuterol aerosols every 2 hours as needed dyspnea Methylprednisolone succinate 40 mg IV twice daily -ABG and CXR as clinically indicated -Continue CPAP trials: fails for hypoxia and tachypnea Follow-up on chest x-ray 12/02 Cardiovascular: Hypertension Coronary artery disease Chronic systolic heart failure ejection fraction 20% Home medications carvedilol 12.5 mg twice daily, hydralazine 25 mg every 8 hours and amlodipine 5 mg daily with holding parameters Echocardiogram 2016 revealed EF of 20%. Bilateral atrial enlargement. Noted cardiac catheterization 1999 revealed normal coronary arteries with ejection fraction of 10-15%. -Resume when indicated Renal: Acute kidney injury superimposed on chronic kidney disease stage IV Acute renal failure -Strict I's and O -Sodium bicarbonate infusion discontinued -11/29 Vas-Cath placement hemodialysis initiated 2.5 L removed -Monitor electrolytes and creatinine levels -- Strict I/Os FEN/GI: Hypocalcemia Hyperkalemia Hyperphosphatemia Hypoalbuminemia -Monitor electrolytes and creatinine levels --Continue Nepro tube feeds currently at 50 cc an hour --Consult nephrology --Replete electrolytes per ICU protocol -Nephrology following Dr. Ga -Repeat BMP Heme/ID: HIV/AIDS Hepatitis B SIRS/sepsis Healthcare associated pneumonia Leukocytosis Normocytic anemia Thrombocytopenia with hit positive serotonin release assay negative History of right cephalic thrombus 12/02 previously on fondaparinux Continue atovaquone 150 mg daily. Patient azithromycin 1200 mg weekly currently on hold secondary to scheduled 5 mg IV daily per ID -Monitor LFTs and liver function Currently on cefepime and azithromycin. Vancomycin currently held Continue Etravirine 200 mg bid, raltegravir 100 mg qd and ritonavir 100 mg daily. -Immunocompromised patient -Further recommendations per ID Blood cultures 2, UA and sputum 11/26 no growth to date. Noted urine with immature growth Endocrine: Diabetes mellitus with hyperglycemia Hypothyroidism -Levothyroxine 50 mcg by mouth daily resume. TSH 2.47 on admission Holding insulin glargine 20 units at night -- SSI with sliding scale insulin/thyroid dose. MSK Elevated BMI History of rheumatoid arthritis Weight loss encouraged PT evaluate and treat Prophylaxis: DVT GI prophylaxis - SCD to left lower extremity -Patient usually on argatroban infusion for prophylaxis patient was heparin- induced platelet antibody positive, NICHOLAS negative. Famotidine Lines: Peripheral IVs x 2. Level 2 follow-up Te Pandey MD Dec 01, 2017 11:47
[2017-12-01] MEDS: RESP: ALBUTEROL 2.5 MG/IPRATROPIUM 0.5 MG NEB (SCH) NEB ×3 (13:04→20:11)
[2017-12-01 17:20] LABS: HEMATOCRIT 28.8 % (39.0-51.0); HEMOGLOBIN 8.9 GM/DL (13.0-17.0); MEAN CELL VOLUME 84.6 FL (80.0-100.0); MEAN CORPUSCULAR HEMOGLOBIN 26.3 PG (27.0-34.0); MEAN PLATELET VOLUME 8.5 FL (7.0-11.0); PLATELET COUNT 166 TH/MM3 (150-450); RED BLOOD COUNT 3.41 MIL/MM3 (4.50-5.90); WHITE BLOOD COUNT 5.3 TH/MM3 (4.0-11.0)
[2017-12-01 18:02] LABS: MAGNESIUM 2.3 MG/DL (1.5-2.5); PHOSPHORUS 7.1 MG/DL (2.5-4.9)
[2017-12-01 18:09] LABS: INTERNATIONAL NORMALIZED RATIO 3.9 RATIO; PROTHROMBIN TIME - PATIENT 38.9 SEC (9.8-11.6)
[2017-12-01 18:09] LABS: BICARBONATE 20.8 MEQ/L (21.0-32.0); CALCIUM 7.2 MG/DL (8.5-10.1); CREATININE 4.63 MG/DL (0.60-1.30)
--- NOTE | 2017-12-01 18:12 | HHI.IDPN ---
Note Infectious Disease Note Patient is sedated on the ventilator. Appears comfortable. Afebrile. Cultures have no growth. This is a 56-year-old white male who was brought to the emergency department from [facility] because of respiratory distress. The patient was noted to be tachypneic with a respiratory rate of 40 and he was intubated. Consult requested for HIV/AIDS. PAST MEDICAL HISTORY: 1. Hypertension. 2. AIDS. 3. Diabetes mellitus. 5. Chronic kidney disease. 6. Congestive heart failure. 7. Ischemic heart disease. 8. Hepatitis B. 9. AICD. 10. Rectal surgery. 11. Obstructive sleep apnea. ALLERGIES: 1. CAPTOPRIL. 2. BENAZEPRIL. 3. ENALAPRILAT. 4. FOSINOPRIL. 5. LISINOPRIL. 6. QUINAPRIL. MEDICATIONS: Current Medications Medications (Trade) Dose Ordered Sig/Kaela Route PRN Reason Start Time Stop Time Status Last Admin Dose Admin Ascorbic Acid (Vitamin C) 500 mg BID PO 11/26/17 09:00 12/01/17 08:01 Atovaquone (Mepron Liq) 1,500 mg DAILY PO 11/26/17 09:00 12/01/17 08:00 Bumetanide (Bumetanide) 1 mg DAILY PO 11/26/17 09:00 Future Hold 11/27/17 07:59 Famotidine (Pepcid) 20 mg DAILY PO 11/26/17 09:00 12/01/17 08:00 Gabapentin (Neurontin) 200 mg Q8HR PO 11/26/17 06:00 12/01/17 12:52 Levothyroxine Sodium (Synthroid) 50 mcg DAILY@0600 PO 11/26/17 09:00 12/01/17 05:09 Quetiapine Fumarate (SEROquel) 25 mg BID PO 11/26/17 09:00 12/01/17 08:00 Raltegravir (Isentress) 400 mg BID PO 11/26/17 09:00 12/01/17 08:01 Ritonavir (Norvir) 100 mg DAILY PO 11/26/17 09:00 12/01/17 08:01 Etravirine (Intelence) 200 mg BID PO 11/26/17 09:00 12/01/17 08:00 Multivitamins (Theragran) 1 tab DAILY PO 11/26/17 09:00 12/01/17 08:00 Sodium Chloride (NS Flush) 2 ml UNSCH PRN IV FLUSH FLUSH AFTER USING IV ACCESS 11/26/17 02:45 Sodium Chloride (NS Flush) 2 ml BID IV FLUSH 11/26/17 09:00 12/01/17 08:01 Midazolam HCl (Versed Inj) 2 mg Q1H PRN IV PUSH SEDATION 11/26/17 02:45 Artificial Tears (Tears Naturale Opth Soln) 1 drop TID EACH EYE 11/26/17 09:00 12/01/17 17:45 Ondansetron HCl (Zofran Odt) 4 mg Q6H PRN PO NAUSEA OR VOMITING 11/26/17 02:45 Miscellaneous Information ([facility] [place] [facility] [place] 1 Q361D XX 11/26/17 02:45 11/26/17 04:30 Chlorhexidine Gluconate (Chlorhexidine 2% Cloth) Taper DAILY@04 TOP 11/26/17 04:00 11/22/18 03:59 12/01/17 04:00 Chlorhexidine Gluconate (Chlorhexidine 2% Cloth) 3 pack UNSCH PRN TOP HYGIENIC CARE 11/26/17 02:45 Senna/Docusate Sodium (Angella-Colace) 1 tab BID PO 11/26/17 09:00 11/30/17 22:05 Magnesium Hydroxide (Milk Of Magnesia Liq) 30 ml Q12H PRN PO Mild constipation 11/26/17 02:45 Sennosides (Senokot) 17.2 mg Q12H PRN PO Moderate constipation 11/26/17 02:45 Bisacodyl (Dulcolax Supp) 10 mg DAILY PRN RECTAL SEVERE CONSITIPATION 11/26/17 02:45 Lactulose (Lactulose Liq) 30 ml DAILY PRN PO SEVERE CONSITIPATION 11/26/17 02:45 Propofol 100 ml @ 3.45 mls/hr TITRATE PRN IV SEDATION 11/26/17 02:45 12/01/17 17:44 Cefepime HCl 2000 mg/Sodium Chloride 100 ml @ 200 mls/hr Q24H IV 11/26/17 04:00 12/01/17 05:08 Azithromycin 500 mg/Sodium Chloride 250 ml @ 250 mls/hr Q24H IV 11/26/17 03:00 12/01/17 04:04 Amlodipine Besylate (Norvasc) 5 mg DAILY PO 11/27/17 10:00 12/01/17 08:01 Carvedilol (Coreg) 12.5 mg Q12H PO 11/27/17 10:00 12/01/17 10:04 Hydralazine HCl (Apresoline) 25 mg Q8H PO 11/27/17 10:00 12/01/17 17:45 Furosemide (Lasix Inj) 40 mg BID@ IV PUSH 11/27/17 18:00 12/01/17 17:44 Dextrose (D50w (Vial) Inj) 50 ml UNSCH PRN IV PUSH HYPOGLYCEMIA-SEE COMMENTS 11/27/17 09:45 Glucagon (Glucagon Inj) 1 mg UNSCH PRN OTHER HYPOGLYCEMIA-SEE COMMENTS 11/27/17 09:45 Insulin Aspart (NovoLOG SUPPLEMENTAL SCALE) 1 ACHS SLIDING SCALE SQ 11/27/17 12:00 12/01/17 10:04 Labetalol HCl (Trandate Inj) 10 mg Q6H PRN IV PUSH SBP>160, DBP>90 11/27/17 16:45 Sodium Chloride (NS Flush) UNSCH PRN IV FLUSH SEE PROTOCOL 11/29/17 10:00 Sodium Chloride 1,000 ml @ 0 mls/hr Q0M PRN OTHER For Prime & Rinse Back 11/29/17 10:31 Sodium Chloride 1,000 ml @ 200 mls/hr Q5H PRN IV WITH DIALYSIS 11/29/17 10:31 Sodium Chloride 1,000 ml @ 0 mls/hr Q0M PRN OTHER WITH DIALYSIS 11/29/17 10:31 Mannitol (Mannitol Inj) 12.5 gm UNSCH PRN IV WITH DIALYSIS 11/29/17 10:45 Albumin Human 100 ml @ 60 mls/hr UNSCH PRN IV WITH DIALYSIS 11/29/17 10:45 Sodium Chloride (NS Flush) 5 ml UNSCH PRN IV FLUSH WITH DIALYSIS 11/29/17 10:45 Gentamicin Sulfate (Gentamicin Inj) 20 mg UNSCH PRN OTHER WITH DIALYSIS 11/29/17 10:45 11/30/17 18:26 Ondansetron HCl (Zofran Odt) 4 mg UNSCH PRN PO WITH DIALYSIS 11/29/17 10:45 Acetaminophen (Tylenol) 650 mg UNSCH PRN PO for headach, pain, temp > 101F 11/29/17 10:45 Diphenhydramine HCl (Benadryl) 25 mg UNSCH PRN PO for hives/itching/anaphylaxis 11/29/17 10:45 Nitroglycerin (Nitrostat Sl) 0.4 mg UNSCH PRN SL CHEST PAIN 11/29/17 10:45 Clonidine (Catapres) 0.1 mg UNSCH PRN PO for BP > 180/100 X 2 readings 11/29/17 10:45 Epoetin Oz (Epogen Inj) 10,000 units UNSCH PRN IV PUSH WITH DIALYSIS 11/29/17 10:45 11/30/17 18:26 Gelatin (Gelfoam 12 Mm/7 Mm Top) 1 foam UNSCH PRN TOP SEE LABEL COMMENTS 11/29/17 10:45 Acetaminophen (Tylenol 650 Mg/ 20 ml Liq) 650 mg Q6H PRN PO fever 12/01/17 10:45 Albuterol/ Ipratropium (Duoneb Neb) 1 ampule Q4HR NEB NEB 12/01/17 12:00 12/01/17 15:25 Albuterol Sulfate (Albuterol Neb) 2.5 mg Q2HR NEB PRN NEB dyspnea 12/01/17 10:45 Budesonide (Pulmicort Respule Neb) 0.5 mg Q12HR NEB NEB 12/01/17 20:00 Chlorhexidine Gluconate (Peridex 0.12% Liq) 15 ml BID@08,20 MT 12/01/17 20:00 Fentanyl Citrate 250 ml @ 5 mls/hr TITRATE PRN IV SEDATION 12/01/17 10:45 Mupirocin (Bactroban Nasal 2% Oint) 1 applic Taper BID EACH NARE 12/01/17 21:00 11/27/18 20:59 Artificial Tears (Lacrilube Opht Oint) 1 applic Q12HR EACH EYE 12/01/17 21:00 Methylprednisolone Sodium Succinate (SoluMEDROL INJ) 40 mg BID IV PUSH 12/01/17 21:00 Objective: Vital Signs Date Time Temp Pulse Resp B/P (MAP) Pulse Ox O2 Delivery O2 Flow Rate FiO2 12/01/17 17:38 96 40 12/01/17 14:51 97 40 12/01/17 14:00 79 12/01/17 12:00 98.4 74 118/80 (93) 100 12/01/17 12:00 40 12/01/17 12:00 74 12/01/17 10:16 100 40 12/01/17 10:00 70 12/01/17 10:00 73 12/01/17 08:39 97 40 12/01/17 08:00 97.7 70 110/78 (89) 100 12/01/17 08:00 40 12/01/17 08:00 70 12/01/17 06:00 68 12/01/17 04:31 100 40 12/01/17 04:00 69 12/01/17 04:00 98.2 69 18 117/81 (93) 100 12/01/17 04:00 40 12/01/17 02:00 67 12/01/17 00:00 40 12/01/17 00:00 97.6 78 18 120/86 (97) 98 12/01/17 00:00 78 11/30/17 23:50 97 40 11/30/17 22:20 99 40 11/30/17 22:00 84 11/30/17 20:00 97.6 81 18 127/89 (102) 100 11/30/17 20:00 40 11/30/17 20:00 81 Laboratory Tests Test 11/30/17 04:58 12/01/17 16:00 White Blood Count 3.0 TH/MM3 5.3 TH/MM3 Red Blood Count 3.56 MIL/MM3 3.41 MIL/MM3 Hemoglobin 9.3 GM/DL 8.9 GM/DL Hematocrit 29.4 % 28.8 % Mean Corpuscular Volume 82.6 FL 84.6 FL Mean Corpuscular Hemoglobin 26.1 PG 26.3 PG Mean Corpuscular Hemoglobin Concent 31.6 % 31.0 % Red Cell Distribution Width 22.8 % 22.0 % Platelet Count 105 TH/MM3 166 TH/MM3 Mean Platelet Volume 8.6 FL 8.5 FL CBC Comment AUTO DIFF Differential Total Cells Counted 100 Neutrophils % (Manual) 87 % Band Neutrophils % 3 % Lymphocytes % 1 % Monocytes % 9 % Neutrophils # (Manual) 2.7 TH/MM3 Nucleated Red Blood Cells 1 /100 WBC Differential Comment FINAL DIFF MANUAL Platelet Estimate LOW Platelet Morphology Comment NORMAL Hematology Comments Laboratory Tests Test 11/30/17 04:58 12/01/17 08:13 12/01/17 16:00 Blood Urea Nitrogen 85 MG/DL Creatinine 4.87 MG/DL Random Glucose 180 MG/DL Total Protein 6.4 GM/DL Albumin 2.2 GM/DL Calcium Level 7.2 MG/DL Phosphorus Level 5.9 MG/DL 7.1 MG/DL Magnesium Level 2.2 MG/DL 2.3 MG/DL Alkaline Phosphatase 45 U/L Aspartate Amino Transf (AST/SGOT) 13 U/L Alanine Aminotransferase (ALT/SGPT) 16 U/L Total Bilirubin 0.7 MG/DL Sodium Level 137 MEQ/L Potassium Level 5.8 MEQ/L Chloride Level 103 MEQ/L Carbon Dioxide Level 19.8 MEQ/L Anion Gap 14 MEQ/L Estimat Glomerular Filtration Rate 15 ML/MIN Protein Corrected Calcium 7.6 MG/DL Imaging: Chest X-Ray 11/30/17 0600 Signed Impressions: CONCLUSION: Cardiomegaly with bibasilar airspace disease and probable small pleural effusio ns. No significant change. Catheter Placement X-Ray 11/29/17 0737 Signed Impressions: CONCLUSION: Uncomplicated ultrasound guided central venous dialysis line placement as above . PHYSICAL EXAMINATION: GENERAL: Patient is on the ventilator. Sedated. HEENT: Unable to assess fully. Sclerae are pale. Oropharynx appear moist. NECK: No adenopathy or swelling. LUNGS: Bilateral basilar rhonchi. HEART: Regular S1 and S2. No audible murmur. ABDOMEN: Decreased bowel sounds, soft. No palpable mass. EXTREMITIES: Both thighs have thick granular tissue and the legs also have thickened liver-like soft tissue all the way down to the feet. The skin of the lower extremities are hyperpigmented. Otherwise, skin has no diffuse rash. NEUROLOGIC: Unable to assess. PSYCHIATRIC: Unable to assess. IMPRESSION: 1. Pneumonia. 2. Acute respiratory failure. 3. Acquired immunodeficiency syndrome. Patient is currently on antiretroviral medications. 4. Chronic kidney disease, stage IV. Plans for dialysis being made. RECOMMENDATIONS: 1. Continue Cefepime. 2. Continue Azithromycin and atovaquone. 3. Continue HIV medications. 4. Monitor the clinical status. Raul Alexis MD Dec 01, 2017 18:12
[2017-12-01 18:30] LABS: CALCIUM-PROTEIN CORRECTED 7.9 MG/DL (8.5-10.1); TOTAL PROTEIN 5.7 GM/DL (6.4-8.2)
[2017-12-01 18:47] LABS: ALBUMIN 2.2 GM/DL (3.4-5.0); DIRECT BILIRUBIN ADULT 0.2 MG/DL (0.0-0.2); INDIRECT BILIRUBIN 0.4 MG/DL (0.0-0.8); TOTAL BILIRUBIN ADULT 0.6 MG/DL (0.2-1.0); TOTAL PROTEIN 5.7 GM/DL (6.4-8.2)
[2017-12-01] MEDS: RESP: BUDESONIDE 0.5 MG/2 ML NEB NEB SCH (20:11)
[2017-12-01] MEDS: MUPIROCIN 2% OINT 1 APPLIC/GM SYR EACH NARE SCH (20:18)
[2017-12-01] MEDS: ARTIFICIAL TEARS OPTH OINT 3.5 APPLIC/3.5 GM TUBO EACH EYE SCH (21:08)
[2017-12-02] VITALS (67 sets, daily range): BP systolic 69–137; BP diastolic 29–82; PULSE 63–105; RESP 18; TEMP 97.6–100.8; O2SAT 72–100
[2017-12-02] MEDS: RESP: ALBUTEROL 2.5 MG/IPRATROPIUM 0.5 MG NEB (SCH) NEB ×7 (00:01→23:43)
[2017-12-02] MEDS: PROPOFOL 1000 MG/100 ML INJ 100 ML IV PRN ×6 (00:09→15:48)
[2017-12-02] MEDS: hydrALAZINE HCL 25 MG TAB PO SCH ×3 (01:50→10:00)
[2017-12-02] MEDS: AZITHROMYCIN INJ 500 MG in SODIUM CHLOR 0.9% 250 ML INJ 250 ML IV SCH (01:50)
[2017-12-02] MEDS: CHLORHEXIDINE GLUCONATE 2 % 1 PACK (2 CLOTHS) TOP SCH (04:00)
[2017-12-02] MEDS: CEFEPIME INJ 2,000 MG in SODIUM CHLORIDE 0.9% INJ 100 ML IV SCH (04:05)
--- NOTE | 2017-12-02 05:12 | RADRPT ---
EXAM DATE: 12/02/2017 5:00 AM EDT AGE/SEX: 56 years / Male INDICATIONS: Shortness of breath, possible pulmonary disease. CLINICAL DATA: This is the patient's subsequent encounter. Patient reports that signs and symptoms h ave been present for 1 week and indicates a pain score of Nonresponsive. MEDICAL/SURGICAL HISTORY: Congestive heart failure. Chronic obstructive pulmonary disease. 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 [place] [facility] [place]. . FINDINGS: The right IJ central line, endotracheal tube and pacer device to overlie the heart.. Moderate size bi lateral pleural effusions are unchanged. There is no visible pneumothorax. Bibasilar atelectasis is u nchanged. CONCLUSION: Stable single view the chest. No visible pneumothorax. Electronically signed by: Gunner Topete MD 12/02/2017 5:11 AM EDT
[2017-12-02] MEDS: LEVOTHYROXINE SODIUM 50 MCG TAB PO SCH (05:35)
[2017-12-02] MEDS: GABAPENTIN 100 MG CAP PO SCH ×4 (05:35→22:00)
[2017-12-02] MEDS: RESP: BUDESONIDE 0.5 MG/2 ML NEB NEB SCH ×2 (07:35→20:07)
[2017-12-02 07:42] LABS: HEMATOCRIT 29.7 % (39.0-51.0); HEMOGLOBIN 9.2 GM/DL (13.0-17.0); MEAN CORPUSCULAR HEMOGLOBIN 26.3 PG (27.0-34.0); MEAN CORPUSCULAR HGB CONC 30.9 % (32.0-36.0); MEAN PLATELET VOLUME 8.5 FL (7.0-11.0); PLATELET COUNT 184 TH/MM3 (150-450); RED BLOOD COUNT 3.49 MIL/MM3 (4.50-5.90); RED CELL DISTRIBUTION WIDTH 22.3 % (11.6-17.2); WHITE BLOOD COUNT 4.5 TH/MM3 (4.0-11.0)
[2017-12-02] MEDS: ETRAVIRINE 100 MG TAB PO SCH ×2 (07:50→21:11)
[2017-12-02] MEDS: amLODIPine BESYLATE 5 MG TAB PO SCH (07:50)
[2017-12-02] MEDS: ATOVAQUONE SUSP 750 MG/5 ML UDC PO SCH (07:50)
[2017-12-02] MEDS: QUEtiapine FUMARATE 25 MG TAB PO SCH (07:51)
[2017-12-02] MEDS: RALTEGRAVIR 400 MG TAB PO SCH (07:51)
[2017-12-02] MEDS: methylPREDNISolone SOD SUCC 40 MG/1 ML VIAL IV PUSH SCH (07:51)
[2017-12-02] MEDS: RITONAVIR 100 MG TAB PO SCH (07:51)
[2017-12-02] MEDS: ASCORBIC ACID 500 MG TAB PO SCH ×2 (07:51→21:12)
[2017-12-02] MEDS: MULTIVITAMIN TAB PO SCH (07:51)
[2017-12-02] MEDS: FAMOTIDINE 20 MG TAB PO SCH (07:51)
[2017-12-02] MEDS: MUPIROCIN 2% OINT 1 APPLIC/GM SYR EACH NARE SCH ×2 (07:51→21:10)
[2017-12-02] MEDS: FUROSEMIDE 40 MG/4 ML VIAL IV PUSH SCH ×2 (07:52→16:55)
[2017-12-02] MEDS: ARTIFICIAL TEARS OPTH OINT 3.5 APPLIC/3.5 GM TUBO EACH EYE SCH ×2 (07:52→21:10)
[2017-12-02] MEDS: ARTIFICIAL TEARS OPTH SOLN 15 ML BTL EACH EYE SCH ×3 (07:52→18:00)
[2017-12-02] MEDS: DOCUSATE SODIUM 50 MG/SENNA 8.6 MG TAB PO SCH ×2 (07:52→21:00)
[2017-12-02] MEDS: SODIUM CHLORIDE 0.9% FLUSH 10 ML FLUSH IV FLUSH SCH ×3 (07:52→21:11)
[2017-12-02] MEDS: CHLORHEXIDINE 0.12% (ORAL KIT) 15 ML CUP MT SCH ×2 (07:52→21:10)
[2017-12-02] MEDS: INSULIN ASPART SUPPLEMENTAL SCALE SQ SCH ×4 (07:58→20:00)
[2017-12-02 08:15] LABS: CREATININE 4.79 MG/DL (0.60-1.30); TOTAL PROTEIN 5.4 GM/DL (6.4-8.2)
[2017-12-02 08:16] LABS: ALBUMIN 2.1 GM/DL (3.4-5.0); CALCIUM 6.8 MG/DL (8.5-10.1); CALCIUM-PROTEIN CORRECTED 7.7 MG/DL (8.5-10.1); MAGNESIUM 2.4 MG/DL (1.5-2.5); PHOSPHORUS 7.3 MG/DL (2.5-4.9)
[2017-12-02 08:17] LABS: BICARBONATE 19.7 MEQ/L (21.0-32.0); TOTAL BILIRUBIN ADULT 0.6 MG/DL (0.2-1.0)
[2017-12-02 08:42] LABS: BANDS 27 % (0-6); CORRECTED NUCLEATED RBC 2 /100 WBC (0-0); LYMPHOCYTES 3 % (9-44); NEUTROPHIL # MANUAL DIFF 4.4 TH/MM3 (1.8-7.7); NUCLEATED RED BLOOD CELL 2 (0-0); POLYS (SEG NEUTROPHILS) 70 % (16-70)
[2017-12-02] MEDS ORDERED: SODIUM BICARBONATE 8.4% SOLN 50 MEQ/50 ML VIAL SLOW IVP ONE (08:45)
[2017-12-02] MEDS ORDERED: DEXTROSE 50% IN WATER 50 ML VIAL(D50) IV PUSH ONE (08:45)
[2017-12-02] MEDS ORDERED: SODIUM POLYSTYRENE SULFONATE SUSP 15 GM/60 ML CUP PO ONE (08:45)
[2017-12-02] MEDS ORDERED: INSULIN HUMAN REGULAR 1,000 UNITS/10 ML VIAL IV PUSH ONE (08:45)
[2017-12-02] MEDS ORDERED: AZITHROMYCIN 600 MG TAB PO SCH (09:00)
[2017-12-02] MEDS: INSULIN DETEMIR 100 UNITS/ML VIAL SQ SCH ×2 (09:00→21:00)
--- NOTE | 2017-12-02 09:00 | HHI.CCPN ---
Subjective Remarks/Hospital Course 56 year old male with COPD requiring nasal CPAP, HIV, hepatitis, and MRSA presents with a history of shortness of breath that had been progressively getting worse over the last 24 hours. The patient is currently a resident at [facility]. According to ambulance service, the patient was on hospice which was recently revoked. Upon ambulance arrival the patient was noted to be tachypneic with a respiratory rate in the 40s, O2 saturations were reportedly at 90% on nasal CPAP. The patient's GCS was diminished to 9 whereas the patient's normal GCS is 15. The patient was provided Versed 4 mg IV, etomidate 20 mg IV and intubated with an endotracheal tube, size 7-1/2. The patient had an OG tube placed. The patient was given normal saline 1500 mL in route to this facility. On arrival, the patient not have any spontaneous respiratory activity noted. 11/27: Patient was noted to be hypertensive during the night. Patient scheduled antihypertensive medications reinitiated. Daily sedation vacation patient following commands. The patient tolerated CPAP trials for 3 hours. Her last admission the patient was noted to have heparin platelet antibody positive antigen. Serotonin release assay pending. Fondaparinux 5 mg every 24 hours continued. Patient noted to have elevated potassium level this a.m. 80 mg Lasix IV given patient initiated him on 40 mg twice daily. 11/28: Afebrile. Noted potassium 5.8 this morning creatinine slightly more elevated 4.24 sodium bicarbonate infusion initiated at 42 cc/hr. invasive radiology consulted for Vas-Cath placement scheduled for 11/29/2017. Arixtra has been placed on hold. The patient continues on CPAP trials greater than 3 hours this a.m.. Repeat BMP this afternoon. 11/29: The patient underwent Vas-Cath placement with IR early this a.m..Patient has heparin antibody platelets the patient is unable to utilize heparin flush for dialysis catheter. Argatroban infusion initiated for prophylaxis, and maintenance of Vas-Cath. This was discussed with pharmacology and nephrology. Vancomycin discontinued, Dr. Alexis aware. Patient underwent hemodialysis sodium bicarbonate infusion discontinued. Arixtra discontinued now as contraindicated in the setting of renal failure. 11/30: no improvements or changes. was previously on hospice: overall this gentleman with multiple medical comorbidities is acutely critically ill- may likely not survive this hospitalization. 6/17: Afebrile. Off all vasopressors been very poor access peripherally for blood draws. Certain release assay is negative. Will discontinue argatroban drip. Previous he had a right cephalic thrombus/superficial. Platelets currently greater than 100,000. Subjective: 12/02: Afebrile. Some tube feed coming from mouth. No residuals noted. Elevated MB is noted. 50 units sliding scale past 24 hours. Platelets continue to rise. Objective Vital Signs Date Time Temp Pulse Resp B/P (MAP) Pulse Ox O2 Delivery O2 Flow Rate FiO2 12/02/17 07:36 93 40 12/02/17 06:00 81 12/02/17 04:00 97.8 102/58 (73) 12/01/17 04:00 18 Intake and Output 12/02/17 12/02/17 12/03/17 08:00 16:00 00:00 Intake Total 1197 ml Output Total 200 ml Balance 997 ml Result Diagram: 12/02/17 0542 12/02/17 0542 Other Results Microbiology Date/Time Source Procedure Growth Status 11/26/17 01:30 Blood Peripheral Aerobic Blood Culture - Final NO GROWTH IN 5 DAYS Complete 11/26/17 01:30 Blood Peripheral Anaerobic Blood Culture - Final NO GROWTH IN 5 DAYS Complete 11/26/17 04:00 Sputum Endotracheal Gram Stain - Final Complete 11/26/17 04:00 Sputum Endotracheal Sputum Culture - Final HEAVY GROWTH NORMAL RESPIRATORY JENNA Complete 11/26/17 01:30 Urine Random Urine Urine Culture - Final <10,000 CFU/ML GRAM POSITIVE JENNA Complete Imaging Last Impressions Chest X-Ray 12/02/17 0600 Signed Impressions: CONCLUSION: Stable single view the chest. No visible pneumothorax. Catheter Placement X-Ray 11/29/17 0737 Signed Impressions: CONCLUSION: Uncomplicated ultrasound guided central venous dialysis line placement as above . Objective Remarks GENERAL: 56-year-old AA male currently orotracheally intubated SKIN: Warm and dry. Sacral decubitus ulcer noted HEAD: Normocephalic. EYES: Pupils are about 2 mm and reactive bilaterally with upward gaze. No scleral icterus. No injection or drainage. NECK: Supple, trachea midline. No JVD. CARDIOVASCULAR: RRR. S1, S2. No S4. Without murmur RESPIRATORY: Distant breath sounds. Breath sounds equal bilaterally. No accessory muscle use. GASTROINTESTINAL: Abdomen soft, non-tender, nondistended. : Significant scrotal edema 4+ MUSCULOSKELETAL: The right lower extremity has 3+ edema, lymphedema noted. Currently with severely wrinkled skin the left lower extremity 1+ edema. 1+ edema of the upper extremities. Scrotal edema NEURO EXAM:RASS -2. Cranial nerves II through XII appear to be grossly intact. In all 4 extremities patient withdraws to pain but not following commands. Positive gag/cough and corneal reflex. Urinary Catheter: Yes Assessment to: Continue Wang insert reason: Obstruction/Retention Vascular Central Line Catheter: No Assessment to: Continue A/P Assessment and Plan NEURO/PSYCH Depression Acute toxic metabolic encephalopathy Chronic narcotic use Peripheral neuropathy Patient is currently on a propofol drip at 50 mcg/kg/min/as needed fentanyl drip for sedation while intubated Goal of RASS -2 Daily sedation vacation Holding home medications of scheduled morphine sulfate [employer], oxycodone 5 mg every 6 hours as needed Holding gabapentin 200 mg every 8 hours Discontinue quetiapine 25 mg twice daily due to possible prolonged QT prolongation on propofol drip -11/27 CT brain revealed no acute cranial findings -Neuro checks per unit protocol Holding lorazepam 1 mg every 4 hours as needed anxiety Respiratory: Acute hypoxic and hypercarbic Respiratory failure COPD Pneumonia-HCAP Obstructive sleep apnea Severe pulmonary hypertension PRVC 18/500/06/24/59 -Vent bundle Albuterol/ipratropium aerosols every 4 hours with albuterol aerosols every 2 hours as needed dyspnea Methylprednisolone succinate 40 mg IV twice daily -ABG and CXR as clinically indicated -Continue CPAP trials: fails for hypoxia and tachypnea Follow-up on chest x-ray 12/02 revealed moderate bilateral pleural effusions Cardiovascular: Hypertension Coronary artery disease Chronic systolic heart failure ejection fraction 20% Home medications carvedilol 12.5 mg twice daily, hydralazine 25 mg every 8 hours and amlodipine 5 mg daily with holding parameters ordered Echocardiogram 2016 revealed EF of 20%. Bilateral atrial enlargement. Noted cardiac catheterization 1999 revealed normal coronary arteries with ejection fraction of 10-15%. -Resume when indicated Renal: Acute kidney injury superimposed on chronic kidney disease stage IV Acute renal failure -Strict I's and O -Sodium bicarbonate infusion discontinued -11/29 Vas-Cath placement hemodialysis initiated 2.5 L removed. Plan for hemodialysis today 12/02 -Monitor electrolytes and creatinine levels -- Strict I/Os FEN/GI: Hypocalcemia Hyperkalemia Hyperphosphatemia Hypoalbuminemia -Monitor electrolytes and creatinine levels --Continue Nepro tube feeds currently at 50 cc an hour. Check KUB in a.m. --Consult nephrology --Replete electrolytes per ICU protocol -Nephrology following Dr. Ga -Repeat BMP Heme/ID: HIV/AIDS Hepatitis B SIRS/sepsis Healthcare associated pneumonia Normocytic anemia Thrombocytopenia with hit weekly positive optical density 0.514 serotonin release assay strongly negative 0.0 resolved History of right cephalic thrombus 12/02 previously on fondaparinux Continue atovaquone 150 mg daily. Patient azithromycin 1200 mg weekly currently on hold secondary to scheduled 5 mg IV daily per ID -Monitor LFTs and liver function Currently on cefepime and azithromycin. Vancomycin currently held Continue Etravirine 200 mg bid, raltegravir 100 mg qd and ritonavir 100 mg daily. -Immunocompromised patient -Further recommendations per ID Blood cultures 2, UA and sputum 11/26 no growth to date. Noted urine less than 10,000 gram-positive jenna Endocrine: Diabetes mellitus with hyperglycemia Hypothyroidism -Levothyroxine 50 mcg by mouth daily resume. TSH 2.47 on admission Holding insulin glargine 20 units at night -- SSI with sliding scale insulin/thyroid dose. MSK Elevated BMI History of rheumatoid arthritis Weight loss encouraged PT evaluate and treat Prophylaxis: DVT GI prophylaxis - SCD to left lower extremity -Patient previously on argatroban infusion for prophylaxis patient was heparin- induced platelet antibody positive, NICHOLAS negative. Will start on renal dose enoxaparin 30 mg subcu daily Famotidine Lines: Peripheral IVs x 2. Level 2 follow-up eT Pandey MD Dec 02, 2017 09:00
--- NOTE | 2017-12-02 09:27 | HHI.NPPN ---
Subjective General Problems: Anemia, Edema, Hypertension Renal Failure: Chronic, Acute, Stage IV History of Present Illness 56-year-old male known to me from before with a past medical history of hypertension, HIV, COPD, chronic kidney disease stage IV, lymphedema of the legs, diabetes mellitus, congestive heart failure, sleep apnea, who came to the hospital with worsening shortness of breath. I was called to see the patient because of elevated BUN and creatinine. The patient has a known history of chronic kidney disease. Additional Remarks Remains intubated and sedated. Urine output remains low on lasix BID. Hemodialysis tomorrow. (Sameera Rudd) Review of Systems General General Remarks unable to do review of system as patient is intubated. (Sameera Rudd) Objective Data Data Vital Signs Date Time Temp Pulse Resp B/P (MAP) Pulse Ox O2 Delivery O2 Flow Rate FiO2 12/02/17 07:36 93 40 12/02/17 06:00 81 12/02/17 04:53 93 40 12/02/17 04:00 77 12/02/17 04:00 40 12/02/17 04:00 97.8 78 102/58 (73) 100 12/02/17 03:31 80 137/70 (92) 92 12/02/17 03:00 83 104/75 (85) 96 12/02/17 02:31 72 112/68 (83) 94 12/02/17 02:06 94 40 12/02/17 02:00 65 114/77 (89) 95 12/02/17 02:00 72 12/02/17 01:31 63 115/71 (86) 95 12/02/17 01:01 63 122/68 (86) 95 12/02/17 01:00 63 94 12/02/17 00:00 40 12/02/17 00:00 68 12/02/17 00:00 98.0 70 122/82 (95) 98 12/01/17 23:59 97 40 12/01/17 23:30 73 122/84 (97) 98 12/01/17 23:00 73 120/82 (95) 97 12/01/17 22:30 75 121/81 (94) 97 12/01/17 22:00 74 124/86 (99) 96 12/01/17 22:00 74 6/17/18 21:30 75 125/84 (98) 97 12/01/17 21:00 75 121/87 (98) 97 12/01/17 20:49 98 40 12/01/17 20:00 76 12/01/17 20:00 40 12/01/17 20:00 97.8 76 124/86 (99) 98 12/01/17 19:30 75 125/91 (102) 98 12/01/17 19:15 75 131/92 (105) 98 12/01/17 19:00 74 131/94 (106) 100 12/01/17 18:00 74 12/01/17 17:38 96 40 12/01/17 16:00 40 12/01/17 16:00 75 12/01/17 16:00 97.9 75 137/67 (90) 94 12/01/17 14:51 97 40 12/01/17 14:00 79 12/01/17 12:00 98.4 74 118/80 (93) 100 12/01/17 12:00 40 12/01/17 12:00 74 12/01/17 10:16 100 40 12/01/17 10:00 70 12/01/17 10:00 73 (Sameera Rudd) -: 12/02/17 0542 12/02/17 0542 Physical Exam General Appearance: No Acute Distress, Comfortable (Sameera Rudd) Eyes Eye Exam: Pupils Equal (Sameera Rudd) Throat Throat Exam: Oral Mucosa [place] & Moist (Sameera Rudd) Pulmonary Resp Exam: Crackles, Rhonchi, Decreased Bases, Diminished Breath Sounds, Poor Inspiratory Effort (Sameera Rudd) Cardiology CV Exam: Regular, Normal Sinus Rhythm (Sameera Rudd) Gastrointestinal/Abdomen GI Exam: Soft, Non-Tender, Bowel Sounds Present, Distended (Sameera Rudd) Extremeties Extremities Exam: Pitting Edema, Dependent Edema (Sameera Rudd) Neurologic Neuro Exam: Sedated (Sameera Rudd) Assessment/Plan Assessment Summary: MARION/Acute Renal Failure, Anemia of CKD, Hypertension, CKD Stage IV Electrolyte Assessment: Hyperkalemia, Metabolic Acidosis Problem List: (1) Acute kidney injury ICD Codes: N17.9 - Acute kidney failure, unspecified Status: Acute Plan: Patient remains intubated s/p vas cath placement 11/29 Creatinine at 4.79 and potassium of 5.8, oliguria with UOP of 424 ml/24 hours Hemodialysis started on 11/29 then 11/28 Epogen with dialysis Phoslo added Next hemodialysis will be tomorrow (2) Stage 4 chronic kidney disease ICD Codes: N18.4 - Chronic kidney disease, stage 4 (severe) Plan: Patient has stage 4 chronic kidney disease. Now develop MARION, and Hyperkalemia, also has metabolic acidosis. Patient remains intubated s/p vas cath placement 11/29 (3) pneumonia in a immunocompromise patient Status: Acute (4) Acute on chronic systolic (congestive) heart failure ICD Codes: I50.23 - Acute on chronic systolic (congestive) heart failure (5) Immunocompromised ICD Codes: D84.9 - Immunocompromised Status: Chronic (6) HIV (human immunodeficiency virus infection) ICD Codes: Z21 - HIV (human immunodeficiency virus infection) Status: Chronic (7) Hyperkalemia ICD Codes: E87.5 - Hyperkalemia Status: Acute (8) DM (diabetes mellitus) ICD Codes: E11.9 - DM (diabetes mellitus) Status: Chronic Plan: insulin coverage, maintain blood glucose between 140 and 180 (Sameera Rudd) Problem List: (1) Acute kidney injury ICD Codes: N17.9 - Acute kidney failure, unspecified Status: Acute Plan: Patient remains intubated s/p vas cath placement 11/29 Creatinine at 4.79 and potassium of 5.8, oliguria with UOP of 424 ml/24 hours Hemodialysis started on 11/29 then 11/28 Epogen with dialysis Phoslo added Patient seen and examined, agree with above. BP is low, requiring 100% Fio2, on pressors, D/W Dr. Pandey, to start CRRT. Remove fluid as tolerated. (2) Stage 4 chronic kidney disease ICD Codes: N18.4 - Chronic kidney disease, stage 4 (severe) Plan: Patient has stage 4 chronic kidney disease. Now develop MARION, and Hyperkalemia, also has metabolic acidosis. Patient remains intubated s/p vas cath placement 11/29 (3) pneumonia in a immunocompromise patient Status: Acute (4) Acute on chronic systolic (congestive) heart failure ICD Codes: I50.23 - Acute on chronic systolic (congestive) heart failure (5) Immunocompromised ICD Codes: D84.9 - Immunocompromised Status: Chronic (6) HIV (human immunodeficiency virus infection) ICD Codes: Z21 - HIV (human immunodeficiency virus infection) Status: Chronic (7) Hyperkalemia ICD Codes: E87.5 - Hyperkalemia Status: Acute (8) DM (diabetes mellitus) ICD Codes: E11.9 - DM (diabetes mellitus) Status: Chronic Plan: insulin coverage, maintain blood glucose between 140 and 180 (Millicent Ga MD) Sameera Rudd Dec 02, 2017 09:27 Millicent Ga MD Dec 03, 2017 21:31
[2017-12-02] MEDS: CARVEDILOL 12.5 MG TAB PO SCH (10:00)
[2017-12-02] MEDS ORDERED: ALBUMIN 5% INJ 500 ML IV ONE (10:30)
[2017-12-02] MEDS ORDERED: NOREPINEPHRINE INJ 4 MG in SODIUM CHLOR 0.9% 250 ML INJ 246 ML IV PRN (10:30)
[2017-12-02] MEDS ORDERED: TERBUTALINE INJ 1 MG/ML AMP SQ PRN ×2 (10:30→11:45)
--- NOTE | 2017-12-02 11:34 | PD.PROCEDR ---
Central Line Procedure REASON FOR PROCEDURE Central venous access PROCEDURE PERFORMED Central line placement: Left IJ CVL CONSENT Informed consent for procedure was not obtained but did discuss with healthcare proxy Sebastien Thacker postprocedure. The risks and benefits of the procedure were discussed to include but limited to bleeding, clot formation, infection, and even . ANESTHESIA Local injection of 1% Lidocaine DESCRIPTION OF THE PROCEDURE The patient was placed in supine, mild Trendelenburg position. The area was exposed and cleansed with ChloraPrep, times two. Large sterile drape was used to cover the patient, with the site exposed, under sterile conditions including cap, face mask, sterile gown, and sterile gloves. On single attempt, the introducer needle was inserted with negative pressure in syringe and venous flash was obtained. The guide wire was then advanced without any restriction and the needle was removed. The dilator was used without any complications. Using Seldinger technique the antibiotic coated triple lumen catheter was advanced over the guide wire to a depth of 20 centimeters. The guide wire was removed. All ports were aspirated with dark venous blood return and flushed easily with sterile saline. All ports were capped. Antibiotic disc was placed around central line at puncture site. The central line was secured to the skin with two interrupted 2.0 silk sutures. The area was bandaged with sterile see- through central line bandage. RADIOLOGICAL DATA Ultrasound guidance was used to locate left internal jugular vein. Doppler/ color flow was used to confirm venous flow. COMPLICATIONS: No apparent complications ESTIMATED BLOOD LOSS: Less than 1 cc. Te Pandey MD Dec 02, 2017 11:34
[2017-12-02] MEDS ORDERED: SODIUM CHLORIDE 0.9% FLUSH 10 ML FLUSH IV FLUSH PRN (11:45)
[2017-12-02] MEDS: ENOXAPARIN SODIUM 30 MG/0.3 ML SYRINGE SQ SCH (12:14)
--- NOTE | 2017-12-02 12:36 | RADRPT ---
EXAM DATE: 12/02/2017 12:25 PM EDT AGE/SEX: 56 years / Male INDICATIONS: Central line placement. CLINICAL DATA: This is the patient's subsequent encounter. Patient reports that signs and symptoms h ave been present for 1 week and indicates a pain score of Nonresponsive. MEDICAL/SURGICAL HISTORY: . Congestive heart failure. Chronic obstructive pulmonary disease. 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 [place] [facility] [place]. . FINDINGS: The examination demonstrates advanced cardiomegaly. There is a right IJ large bore catheter as well a s a new left IJ central venous catheter. Both overlie the superior vena cava. The ET tubes in good po sition. There are bilateral pleural effusions suggesting congestive failure. Note is made of a pacer. CONCLUSION: New left IJ central venous catheter in satisfactory position. No pneumothorax. Advanced cardiomegaly with bilateral effusions. Electronically signed by: Tio Phillips MD 12/02/2017 12:35 PM EDT
--- NOTE | 2017-12-02 12:49 | PD.CONS ---
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 Saturation 76 Arterial Blood pH 7.29 Arterial Blood Partial Pressure CO2 47 Arterial Blood Partial Pressure O2 55 Arterial Blood Oxygen Content 9.2 Arterial Blood Carboxyhemoglobin 1.9 Arterial Blood Methemoglobin 1.9 Blood Gas Hemoglobin 8.7 Oxygen Delivery Device VENTILATOR Blood Gas Ventilator Setting PRVC/AC 580/17/ Blood Gas Inspired Oxygen 61 Date/Time Source Procedure Growth Status 11/26/17 01:30 Blood Peripheral Aerobic Blood Culture - Final NO GROWTH IN 5 DAYS Complete 11/26/17 01:30 Blood Peripheral Anaerobic Blood Culture - Final NO GROWTH IN 5 DAYS Complete 11/26/17 04:00 Sputum Endotracheal Gram Stain - Final Complete 11/26/17 04:00 Sputum Endotracheal Sputum Culture - Final HEAVY GROWTH NORMAL RESPIRATORY RONAN Complete 11/26/17 01:30 Urine Random Urine Urine Culture - Final <10,000 CFU/ML GRAM POSITIVE RONAN Complete Imaging Last Impressions Chest X-Ray 12/02/17 0600 Signed Impressions: CONCLUSION: Stable single view the chest. No visible pneumothorax. Catheter Placement X-Ray 11/29/17 0737 Signed Impressions: CONCLUSION: Uncomplicated ultrasound guided central venous dialysis line placement as above . Procedures 11/26: Intubation 11/29: Vas-Cath placement right IJ 12/02: Left IJ central line placement 12/02: Right femoral arterial line placement . Patient/Family Conference Present at Family Conference: No family at bedside. Call placed to patient's brother, Sebastien. Provided medical review to include update on multi-system organ compromise, prognosis, immunocompromised status and its effect on treatment of pneumonia, requirement for vasopressors and fluid support. Reviewed CODE STATUS with Sebastien who reaffirms that he wishes the patient to remain a FULL CODE. Palliative care contact information provided for further updates, questions or concerns. . Family Conference Location: Other (Pending) Issues Discussed: * Palliative care role, purpose, approach * Additional medical, psychosocial, and spiritual history * Patients general health, functional status, and cognitive changes in the months leading up to the current hospitalization * Patient/family understanding of the current medical problems * Patient/family understanding of prognosis * Patients goals of care as best understood from advance directives and/or conversations and/or values * Current medical treatment options and benefits/burdens of those options * Likely scenarios comparing ongoing aggressive care with a transition to comfort measures only * Questions answered to the best of my ability * Palliative care contact information provided Assessment and Plan Disease Oriented Problem List: (1) Altered mental status (2) Hepatitis B (3) History of drug abuse (4) CHF (congestive heart failure) (5) Hypothyroidism (6) Lymphadenopathy (7) Hepatitis C (8) Chronic kidney disease, stage 4 (severe) (9) COPD (chronic obstructive pulmonary disease) (10) AIDS (11) HIV (human immunodeficiency virus infection) (12) Acute on chronic systolic (congestive) heart failure (13) pneumonia in a immunocompromise patient Symptom Scale: (1) Shortness of breath 0-10 Scale: Unable to quantify (Intubated, sedated) (2) Altered mental status 0-10 Scale: Unable to quantify (Intubated, sedated) Pertinent Non-Medical Issues Psychosocial:He was born and brought up in [place] and dropped out of school in the ninth grade. He started abusing drugs at age 14 and has been incarcerated numerous times, starting at age 14. He states that he has been in halfway at least 3 or 4 times on stimulant delivery of drugs as well as aggravated assault. He states he has a history of abusing alcohol in the past. He is and has no children. Spiritual:Not an important concept to the patient. Legal: Healthcare surrogate is his brother, Sebastien. Ethical issues impacting care:none noted. . Important Contacts Brother: Sebastien Thacker (cell), (work) : Yahaira Thacker (resides at [facility]) Niece: Cathy Santos (home), (office) . Prognosis His prognosis is guarded. He is admitted with respiratory failure, now intubated and sedated, likely secondary to pneumonia. He has a history of noncompliance with his HIV/AIDS medications and frequently stops taking them. He is also has a history of Kaposi's sarcoma and again has been noncompliant with medical follow-up and recommendations. He has a history of polysubstance abuse and severe congestive heart failure, acute on chronic renal failure, COPD now with respiratory failure. As he is immunocompromised with multisystem organ failure, it is very likely he will not survive this hospitalization. . Code Status: Full Code Plan PLAN: Legal decision maker: At this time the patient is intubated and sedated and is not capacitated to make his own decisions. In a previous admission he had made his brother, Sebastien Thacker, his healthcare surrogate and per my discussion with Sebastien, he wishes his brother to remain a full code at this time. Goals: Remain aggressive. CODE STATUS: FULL CODE SYMPTOMS: * Altered mental status: Presented with altered mental status from the group home facility, likely secondary to impending respiratory failure. At this time he is intermittently responding appropriately to commands when sedation is lifted and is withdrawing to pain in all 4 extremities with noxious stimuli. Unable to further evaluate mental status at this time due to clinical condition and sedation. * Dyspnea: Multifactorial to include pneumonia, pulmonary hypertension, COPD, acute on chronic systolic heart failure with EF 15-20%, renal failure and fluid volume excess. He is currently intubated and sedated requiring 100% FiO2 for adequate saturations. SUMMARY This is a middle-aged -Kitt[place] male with multisystem organ failure to include lung, heart, kidney with immunocompromised status secondary to HIV/ AIDS. He is having increasing admissions with progressive organ decline. He is now requiring hemodialysis which may or may not be permanent. Renal dose reduction in antibiotics has been required and is being managed by infectious disease. He is at significant risk of continued complications and decline. It is opined by critical care that he may not survive this hospitalization. Palliative care will continue to follow the patient during hospital course as condition evolves, to assist patient/decision-maker with understanding of their medical conditions, weighing benefits/burdens of treatment options, for clarification of goals of treatment. Additionally will assist with any symptoms of palliative concern. . Thank you for the opportunity to participate in the care of Mr. Thacker. Attestation is To help prompt me to consider important information that might be impacting today's encounter and assessment, information from prior notes written by myself or my colleagues may have been "brought forward" into today's note. My signature on this note, however, is an attestation that I personally performed the exam, history, and/or decision-making noted today, and, unless otherwise indicated, the interactions with patient, family, and staff as well as the review of records all occurred today. I also attest that the listed assessment and stated plan reflect my best clinical judgment today based on the combination of historical information, prior notes, and today's exam/ interactions. When time spent is documented, it refers only to time spent today by the signer, or if indicated, combined time spent today by collaborating physician/nurse practitioner. . Keke Espinosa Dec 02, 2017 11:12 am
[2017-12-02] MEDS ORDERED: PHARMACY INFORMATION XX PRN ×2 (13:45)
[2017-12-02] MEDS ORDERED: ASP: Other exception documentation: ( ) PRN (13:45)
--- NOTE | 2017-12-02 13:58 | HHI.IDPN ---
Note Infectious Disease Note Patient is sedated on the ventilator. Add significant decrease in blood pressure. Now on Levophed 20 mcg. Now on 100% FiO2 on the ventilator. Systolic blood pressure is 65. Unresponsive. Last dialysis treatment was 2 days ago. This is a 56-year-old black male who was brought to the emergency department from [facility] because of respiratory distress. The patient was noted to be tachypneic with a respiratory rate of 40 and he was intubated. He has HIV and is receiving HIV medications. Consult requested for HIV/AIDS. PAST MEDICAL HISTORY: 1. Hypertension. 2. AIDS. 3. Diabetes mellitus. 5. Chronic kidney disease. 6. Congestive heart failure. 7. Ischemic heart disease. 8. Hepatitis B. 9. AICD. 10. Rectal surgery. 11. Obstructive sleep apnea. ALLERGIES: 1. CAPTOPRIL. 2. BENAZEPRIL. 3. ENALAPRILAT. 4. FOSINOPRIL. 5. LISINOPRIL. 6. QUINAPRIL. MEDICATIONS: Current Medications Medications (Trade) Dose Ordered Sig/Kaela Route PRN Reason Start Time Stop Time Status Last Admin Dose Admin Ascorbic Acid (Vitamin C) 500 mg BID PO 11/26/17 09:00 12/02/17 07:51 Atovaquone (Mepron Liq) 1,500 mg DAILY PO 11/26/17 09:00 12/02/17 07:50 Bumetanide (Bumetanide) 1 mg DAILY PO 11/26/17 09:00 Future Hold 11/27/17 07:59 Famotidine (Pepcid) 20 mg DAILY PO 11/26/17 09:00 12/02/17 07:51 Gabapentin (Neurontin) 200 mg Q8HR PO 11/26/17 06:00 12/02/17 05:35 Levothyroxine Sodium (Synthroid) 50 mcg DAILY@0600 PO 11/26/17 09:00 12/02/17 05:35 Quetiapine Fumarate (SEROquel) 25 mg BID PO 11/26/17 09:00 12/02/17 07:51 Raltegravir (Isentress) 400 mg BID PO 11/26/17 09:00 12/02/17 07:51 Ritonavir (Norvir) 100 mg DAILY PO 11/26/17 09:00 12/02/17 07:51 Etravirine (Intelence) 200 mg BID PO 11/26/17 09:00 12/02/17 07:50 Multivitamins (Theragran) 1 tab DAILY PO 11/26/17 09:00 12/02/17 07:51 Sodium Chloride (NS Flush) 2 ml UNSCH PRN IV FLUSH FLUSH AFTER USING IV ACCESS 11/26/17 02:45 Sodium Chloride (NS Flush) 2 ml BID IV FLUSH 11/26/17 09:00 12/02/17 07:52 Midazolam HCl (Versed Inj) 2 mg Q1H PRN IV PUSH SEDATION 11/26/17 02:45 Artificial Tears (Tears Naturale Opth Soln) 1 drop TID EACH EYE 11/26/17 09:00 12/02/17 13:00 Ondansetron HCl (Zofran Odt) 4 mg Q6H PRN PO NAUSEA OR VOMITING 11/26/17 02:45 Miscellaneous Information ([facility]) 1 Q361D XX 11/26/17 02:45 11/26/17 04:30 Chlorhexidine Gluconate (Chlorhexidine 2% Cloth) Taper DAILY@04 TOP 11/26/17 04:00 11/22/18 03:59 12/01/17 04:00 Chlorhexidine Gluconate (Chlorhexidine 2% Cloth) 3 pack UNSCH PRN TOP HYGIENIC CARE 11/26/17 02:45 Senna/Docusate Sodium (Angella-Colace) 1 tab BID PO 11/26/17 09:00 12/01/17 20:19 Magnesium Hydroxide (Milk Of Magnesia Liq) 30 ml Q12H PRN PO Mild constipation 11/26/17 02:45 Sennosides (Senokot) 17.2 mg Q12H PRN PO Moderate constipation 11/26/17 02:45 Bisacodyl (Dulcolax Supp) 10 mg DAILY PRN RECTAL SEVERE CONSITIPATION 11/26/17 02:45 Lactulose (Lactulose Liq) 30 ml DAILY PRN PO SEVERE CONSITIPATION 11/26/17 02:45 Propofol 100 ml @ 3.45 mls/hr TITRATE PRN IV SEDATION 11/26/17 02:45 12/02/17 09:07 Cefepime HCl 2000 mg/Sodium Chloride 100 ml @ 200 mls/hr Q24H IV 11/26/17 04:00 12/02/17 04:05 Azithromycin 500 mg/Sodium Chloride 250 ml @ 250 mls/hr Q24H IV 11/26/17 03:00 12/02/17 01:50 Amlodipine Besylate (Norvasc) 5 mg DAILY PO 11/27/17 10:00 12/02/17 07:50 Carvedilol (Coreg) 12.5 mg Q12H PO 11/27/17 10:00 12/01/17 21:19 Hydralazine HCl (Apresoline) 25 mg Q8H PO 11/27/17 10:00 12/01/17 17:45 Furosemide (Lasix Inj) 40 mg BID@ IV PUSH 11/27/17 18:00 12/02/17 07:52 Dextrose (D50w (Vial) Inj) 50 ml UNSCH PRN IV PUSH HYPOGLYCEMIA-SEE COMMENTS 11/27/17 09:45 Glucagon (Glucagon Inj) 1 mg UNSCH PRN OTHER HYPOGLYCEMIA-SEE COMMENTS 11/27/17 09:45 Labetalol HCl (Trandate Inj) 10 mg Q6H PRN IV PUSH SBP>160, DBP>90 11/27/17 16:45 Sodium Chloride (NS Flush) UNSCH PRN IV FLUSH SEE PROTOCOL 11/29/17 10:00 Sodium Chloride 1,000 ml @ 0 mls/hr Q0M PRN OTHER For Prime & Rinse Back 11/29/17 10:31 Sodium Chloride 1,000 ml @ 200 mls/hr Q5H PRN IV WITH DIALYSIS 11/29/17 10:31 Sodium Chloride 1,000 ml @ 0 mls/hr Q0M PRN OTHER WITH DIALYSIS 11/29/17 10:31 Mannitol (Mannitol Inj) 12.5 gm UNSCH PRN IV WITH DIALYSIS 11/29/17 10:45 Albumin Human 100 ml @ 60 mls/hr UNSCH PRN IV WITH DIALYSIS 11/29/17 10:45 Sodium Chloride (NS Flush) 5 ml UNSCH PRN IV FLUSH WITH DIALYSIS 11/29/17 10:45 Gentamicin Sulfate (Gentamicin Inj) 20 mg UNSCH PRN OTHER WITH DIALYSIS 11/29/17 10:45 11/30/17 18:26 Ondansetron HCl (Zofran Odt) 4 mg UNSCH PRN PO WITH DIALYSIS 11/29/17 10:45 Acetaminophen (Tylenol) 650 mg UNSCH PRN PO for headach, pain, temp > 101F 11/29/17 10:45 Diphenhydramine HCl (Benadryl) 25 mg UNSCH PRN PO for hives/itching/anaphylaxis 11/29/17 10:45 Nitroglycerin (Nitrostat Sl) 0.4 mg UNSCH PRN SL CHEST PAIN 11/29/17 10:45 Clonidine (Catapres) 0.1 mg UNSCH PRN PO for BP > 180/100 X 2 readings 11/29/17 10:45 Epoetin Oz (Epogen Inj) 10,000 units UNSCH PRN IV PUSH WITH DIALYSIS 11/29/17 10:45 11/30/17 18:26 Gelatin (Gelfoam 12 Mm/7 Mm Top) 1 foam UNSCH PRN TOP SEE LABEL COMMENTS 11/29/17 10:45 Acetaminophen (Tylenol 650 Mg/ 20 ml Liq) 650 mg Q6H PRN PO fever 12/01/17 10:45 Albuterol/ Ipratropium (Duoneb Neb) 1 ampule Q4HR NEB NEB 12/01/17 12:00 12/02/17 11:24 Albuterol Sulfate (Albuterol Neb) 2.5 mg Q2HR NEB PRN NEB dyspnea 12/01/17 10:45 Budesonide (Pulmicort Respule Neb) 0.5 mg Q12HR NEB NEB 12/01/17 20:00 12/02/17 07:35 Chlorhexidine Gluconate (Peridex 0.12% Liq) 15 ml BID@08,20 MT 12/01/17 20:00 12/02/17 07:52 Fentanyl Citrate 250 ml @ 5 mls/hr TITRATE PRN IV SEDATION 12/01/17 10:45 Mupirocin (Bactroban Nasal 2% Oint) 1 applic Taper BID EACH NARE 12/01/17 21:00 11/27/18 20:59 12/02/17 07:51 Artificial Tears (Lacrilube Opht Oint) 1 applic Q12HR EACH EYE 12/01/17 21:00 12/02/17 07:52 Methylprednisolone Sodium Succinate (SoluMEDROL INJ) 40 mg BID IV PUSH 12/01/17 21:00 12/02/17 07:51 Insulin Aspart (NovoLOG SUPPLEMENTAL SCALE) 1 Q4HR SQ 12/02/17 12:00 Insulin Detemir (Levemir Inj) 15 units Q12HR SQ 12/02/17 09:00 Metoclopramide HCl (Reglan Inj) 5 mg Q8HR IV PUSH 12/02/17 14:00 Enoxaparin Sodium (Lovenox Inj) 30 mg Q24H SQ 12/02/17 10:00 12/02/17 12:14 Calcium Acetate (Phoslo) 1,334 mg TID NG 12/02/17 13:00 Norepinephrine Bitartrate 4 mg/ Sodium Chloride 250 ml @ 7.5 mls/hr TITRATE PRN IV Blood pressure management 12/02/17 10:30 12/02/17 10:45 Terbutaline Sulfate (Brethine Inj) 1 mg UNSCH PRN SQ For Extravasation 12/02/17 10:30 Sodium Chloride (NS Flush) DAILY IV FLUSH 12/02/17 11:45 12/02/17 11:45 Sodium Chloride (NS Flush) UNSCH PRN IV FLUSH SEE PROTOCOL 12/02/17 11:45 Terbutaline Sulfate (Brethine Inj) 1 mg UNSCH PRN SQ For Extravasation 12/02/17 11:45 Objective: Vital Signs Date Time Temp Pulse Resp B/P (MAP) Pulse Ox O2 Delivery O2 Flow Rate FiO2 12/02/17 11:24 87 100 12/02/17 10:45 80 79/38 12/02/17 07:36 93 40 12/02/17 06:00 81 12/02/17 04:53 93 40 12/02/17 04:00 77 12/02/17 04:00 40 12/02/17 04:00 97.8 78 102/58 (73) 100 12/02/17 03:31 80 137/70 (92) 92 12/02/17 03:00 83 104/75 (85) 96 12/02/17 02:31 72 112/68 (83) 94 12/02/17 02:06 94 40 12/02/17 02:00 65 114/77 (89) 95 12/02/17 02:00 72 12/02/17 01:31 63 115/71 (86) 95 12/02/17 01:01 63 122/68 (86) 95 12/02/17 01:00 63 94 12/02/17 00:00 40 12/02/17 00:00 68 12/02/17 00:00 98.0 70 122/82 (95) 98 18 23:59 97 40 12/01/17 23:30 73 122/84 (97) 98 12/01/17 23:00 73 120/82 (95) 97 18 22:30 75 121/81 (94) 97 18 22:00 74 124/86 (99) 96 12/01/17 22:00 74 12/01/17 21:30 75 125/84 (98) 97 12/01/17 21:00 75 121/87 (98) 97 12/01/17 20:49 98 40 12/01/17 20:00 76 12/01/17 20:00 40 12/01/17 20:00 97.8 76 124/86 (99) 98 12/01/17 19:30 75 125/91 (102) 98 18 19:15 75 131/92 (105) 98 12/01/17 19:00 74 131/94 (106) 100 12/01/17 18:00 74 12/01/17 17:38 96 40 12/01/17 16:00 40 12/01/17 16:00 75 12/01/17 16:00 97.9 75 137/67 (90) 94 12/01/17 14:51 97 40 12/01/17 14:00 79 Laboratory Tests Test 12/01/17 16:00 12/02/17 05:42 White Blood Count 5.3 TH/MM3 4.5 TH/MM3 Red Blood Count 3.41 MIL/MM3 3.49 MIL/MM3 Hemoglobin 8.9 GM/DL 9.2 GM/DL Hematocrit 28.8 % 29.7 % Mean Corpuscular Volume 84.6 FL 85.0 FL Mean Corpuscular Hemoglobin 26.3 PG 26.3 PG Mean Corpuscular Hemoglobin Concent 31.0 % 30.9 % Red Cell Distribution Width 22.0 % 22.3 % Platelet Count 166 TH/MM3 184 TH/MM3 Mean Platelet Volume 8.5 FL 8.5 FL CBC Comment AUTO DIFF Differential Total Cells Counted 100 Neutrophils % (Manual) 70 % Band Neutrophils % 27 % Lymphocytes % 3 % Neutrophils # (Manual) 4.4 TH/MM3 Nucleated Red Blood Cells 2 /100 WBC Differential Comment FINAL DIFF MANUAL Platelet Estimate NORMAL Platelet Morphology Comment NORMAL Laboratory Tests Test 12/01/17 08:13 12/01/17 16:00 12/02/17 05:42 12/02/17 12:20 Blood Urea Nitrogen 93 MG/DL 94 MG/DL Creatinine 4.63 MG/DL 4.79 MG/DL Random Glucose 258 MG/DL 241 MG/DL Total Protein 5.7 GM/DL 5.7 GM/DL 5.4 GM/DL Calcium Level 7.2 MG/DL 6.8 MG/DL Sodium Level 138 MEQ/L 139 MEQ/L Potassium Level 5.3 MEQ/L 5.2 MEQ/L 5.0 MEQ/L Chloride Level 100 MEQ/L 100 MEQ/L Carbon Dioxide Level 20.8 MEQ/L 19.7 MEQ/L Anion Gap 17 MEQ/L 19 MEQ/L Estimat Glomerular Filtration Rate 16 ML/MIN 15 ML/MIN Protein Corrected Calcium 7.9 MG/DL 7.7 MG/DL Phosphorus Level 7.1 MG/DL 7.3 MG/DL Magnesium Level 2.3 MG/DL 2.4 MG/DL Total Bilirubin 0.6 MG/DL 0.6 MG/DL Direct Bilirubin 0.2 MG/DL Indirect Bilirubin 0.4 MG/DL Aspartate Amino Transf (AST/SGOT) 26 U/L 24 U/L Alanine Aminotransferase (ALT/SGPT) 18 U/L 29 U/L Alkaline Phosphatase 50 U/L 60 U/L Total Creatine Kinase 22 U/L Albumin 2.2 GM/DL 2.1 GM/DL Test 12/02/17 12:35 Lactic Acid Level 1.9 mmol/L Imaging: Chest X-Ray 12/02/17 1131 Signed Impressions: CONCLUSION: New left IJ central venous catheter in satisfactory position. No pneumothorax. Advanced cardiomegaly with bilateral effusions. Chest X-Ray 12/02/17 0600 Signed Impressions: CONCLUSION: Stable single view the chest. No visible pneumothorax. Chest X-Ray 11/30/17 0600 Signed Impressions: CONCLUSION: Cardiomegaly with bibasilar airspace disease and probable small pleural effusio ns. No significant change. Catheter Placement X-Ray 11/29/17 0737 Signed Impressions: CONCLUSION: Uncomplicated ultrasound guided central venous dialysis line placement as above . PHYSICAL EXAMINATION: GENERAL: Patient is unresponsive on the ventilator. Sedated. HEENT: Unable to assess fully. Sclerae are pale. Oropharynx appear moist. NECK: No adenopathy or swelling. LUNGS: Bilateral basilar rhonchi unchanged. HEART: Regular S1 and S2. No audible murmur. ABDOMEN: Decreased bowel sounds, soft. No palpable mass. EXTREMITIES: Both thighs have thick granular tissue and the legs also have thickened liver-like soft tissue all the way down to the feet. The skin of the lower extremities are hyperpigmented. Otherwise, skin has no diffuse rash. NEUROLOGIC: Unable to assess. PSYCHIATRIC: Unable to assess. IMPRESSION: 1. Hypotension probable acute new sepsis. Now on Levophed. 2. Pneumonia. 3. Acute respiratory failure. 4. Acquired immunodeficiency syndrome. Patient is currently on antiretroviral medications. 5. Chronic kidney disease, stage IV. Plans for dialysis being made. RECOMMENDATIONS: 1. Change cefepime to meropenem. 2. Stop Azithromycin. 3. Hold HIV medications. 4. Send new blood cultures. 5. Give dose of vancomycin 1. 6. Start micafungin. 7. Monitor the clinical status. Raul Alexis MD Dec 02, 2017 13:57
[2017-12-02] MEDS: METOCLOPRAMIDE HCL 10 MG/2 ML VIAL IV PUSH SCH ×2 (14:30→21:12)
[2017-12-02] MEDS: CALCIUM ACETATE 667 MG CAP NG SCH ×2 (14:30→16:59)
[2017-12-02 14:45] LABS: HEMATOCRIT 30.1 % (39.0-51.0); HEMOGLOBIN 9.3 GM/DL (13.0-17.0); MEAN CELL VOLUME 85.3 FL (80.0-100.0); MEAN CORPUSCULAR HEMOGLOBIN 26.3 PG (27.0-34.0); MEAN CORPUSCULAR HGB CONC 30.8 % (32.0-36.0); MEAN PLATELET VOLUME 8.2 FL (7.0-11.0); PLATELET COUNT 239 TH/MM3 (150-450); RED BLOOD COUNT 3.53 MIL/MM3 (4.50-5.90); RED CELL DISTRIBUTION WIDTH 22.4 % (11.6-17.2); WHITE BLOOD COUNT 3.3 TH/MM3 (4.0-11.0)
[2017-12-02] MEDS ORDERED: DEXMEDETOMIDINE INJ 200 MCG in SODIUM CHLORIDE 0.9% INJ 50 ML IV PRN (15:00)
[2017-12-02] MEDS ORDERED: DOBUTamine INJ 500 MG in DEXTROSE 5% IN WATER INJ 210 ML IV PRN ×2 (15:00)
[2017-12-02] MEDS ORDERED: DOBUTamine INJ 1,000 MG in DEXTROSE 5% IN WATER INJ 170 ML IV PRN ×2 (15:00)
[2017-12-02] MEDS ORDERED: RASS Change Order XX ONE (15:15)
[2017-12-02] MEDS: NOREPINEPHRINE 4 MG/D5W 250 ML IV PRN ×4 (15:29→22:34)
[2017-12-02] MEDS: EPOPROSTENOL NEB SOLUTION 50 NG/KG/MIN 100 ML NEB SCH ×4 (16:00→23:41)
[2017-12-02] MEDS ORDERED: MICAFUNGIN INJ 100 MG in SODIUM CHLORIDE 0.9% INJ 100 ML IV SCH (16:00)
[2017-12-02] MEDS ORDERED: VANCOMYCIN INJ 1,000 MG in SODIUM CHLOR 0.9% 250 ML INJ 250 ML IV ONE (16:00)
[2017-12-02 16:11] LABS: INTERNATIONAL NORMALIZED RATIO 1.7 RATIO; PROTHROMBIN TIME - PATIENT 17.3 SEC (9.8-11.6)
[2017-12-02] MEDS: HYDROCORTISONE SOD SUCCINATE 100 MG VIAL IV PUSH SCH ×2 (16:55→21:11)
[2017-12-02] MEDS ORDERED: ROCURONIUM INJ 100 MG/10 ML VIAL IV ONE (17:00)
[2017-12-02] MEDS ORDERED: MEROPENEM INJ 500 MG in SODIUM CHLORIDE 0.9% INJ 100 ML IV SCH (17:00)
--- NOTE | 2017-12-02 17:09 | PD.PROCEDR ---
Procedure Note Procedure CODE [place] [facility] Time of code 1609 Return of spontaneous circulation -1614 While evaluating patient, patient went to PEA arrest. CPR started with chest compressions at 1609. Patient's received 1 L normal saline wide open, the norepinephrine was increased to 100 mcg/min and received 1 mg epinephrine and 1 ampule of sodium bicarbonate. Pulse check at 1640 revealed sinus tachycardia with return of spontaneous circulation. Patient also received 1 ampule of calcium chloride during this code. Postcode laboratories and ABG and chest x- ray are currently pending. Attempted to contact Sebastien Thacker/his brother at [phone] messages left on voicemail and his work number [phone]. They state he left work for today and to call his cell phone. We will continue to attempt to contact him to notify him of the change of status of his brother Time of code -1722 Return of spontaneous circulation -1724 His brother Sebastien Thacker did return phone call. He i was updated on patient's current dire medical condition. Noted patient acutely hypotensive and currently on multiple vasopressors for support. Multiple laboratories currently pending. Not stable enough for bronchoscopy. Not stable due to hemodynamic instability and hypoxia on epoprostenol to send for imaging a CT imaging. Te Pandey MD Dec 02, 2017 17:09
[2017-12-02 18:57] LABS: HEMATOCRIT 29.5 % (39.0-51.0); HEMOGLOBIN 8.8 GM/DL (13.0-17.0); MEAN CELL VOLUME 86.7 FL (80.0-100.0); MEAN CORPUSCULAR HEMOGLOBIN 25.9 PG (27.0-34.0); MEAN PLATELET VOLUME 8.2 FL (7.0-11.0); PLATELET COUNT 219 TH/MM3 (150-450); RED CELL DISTRIBUTION WIDTH 22.3 % (11.6-17.2); WHITE BLOOD COUNT 1.8 TH/MM3 (4.0-11.0)
[2017-12-02 18:59] LABS: MEAN CORPUSCULAR HGB CONC 29.9 % (32.0-36.0)
[2017-12-02] MEDS: EPINEPHrine (1:1000) INJ 2 MG in DEXTROSE 5% IN WATER INJ 250 ML IV PRN ×4 (19:00→21:13)
--- NOTE | 2017-12-02 19:12 | RADRPT ---
EXAM DATE: 12/02/2017 6:34 PM EDT AGE/SEX: 56 years / Male INDICATIONS: Shortness of breath. CLINICAL DATA: This is the patient's subsequent encounter. Patient reports that signs and symptoms h ave been present for 1 day and indicates a pain score of Nonresponsive. MEDICAL/SURGICAL HISTORY: . Congestive heart failure. Chronic obstructive pulmonary disease Pa alvino. [place] [facility] [place]. . FINDINGS: Pacer lead unchanged. Bilateral mostly basilar airspace disease and pleural effusions again noted. Ca rdiomegaly. Endotracheal tube in good position. Nasogastric tube enters stomach. Bilateral central li brody in superior vena cava. CONCLUSION: Bilateral mostly basilar airspace disease and pleural effusions similar to exam from earlier today. S upport apparatus unchanged. Electronically signed by: Samir eGrard MD 12/02/2017 7:11 PM EDT
--- NOTE | 2017-12-02 19:13 | RADRPT ---
EXAM DATE: 12/02/2017 6:36 PM EDT AGE/SEX: 56 years / Male INDICATIONS: Abdominal distention. CLINICAL DATA: This is the patient's subsequent encounter. Patient reports that signs and symptoms h ave been present for 1 day and indicates a pain score of Nonresponsive. MEDICAL/SURGICAL HISTORY: . Congestive heart failure. Chronic obstructive pulmonary disease Pa giselaker. [place]PAR[place] [facility] [place]. . FINDINGS: The abdominal bowel gas pattern is nonspecific without evidence for obstruction. No free air No abno rmal masses, calcifications, or organomegaly is seen. The osseous structures are unremarkable. CONCLUSION: Nonspecific bowel gas pattern without evidence for obstruction or free air. Electronically signed by: Samir Gerard MD 12/02/2017 7:12 PM EDT
[2017-12-02 19:37] LABS: ALBUMIN 1.9 GM/DL (3.4-5.0); CALCIUM 6.6 MG/DL (8.5-10.1); CREATININE 5.2 MG/DL (0.60-1.30); DIRECT BILIRUBIN ADULT 0.4 MG/DL (0.0-0.2); INDIRECT BILIRUBIN 0.5 MG/DL (0.0-0.8); MAGNESIUM 2.1 MG/DL (1.5-2.5); PHOSPHORUS 7.4 MG/DL (2.5-4.9); TOTAL BILIRUBIN ADULT 0.9 MG/DL (0.2-1.0); TOTAL PROTEIN 4.7 GM/DL (6.4-8.2); TROPONIN I 0.08 NG/ML (0.02-0.05)
[2017-12-02 19:47] LABS: CALCIUM-PROTEIN CORRECTED 7.8 MG/DL (8.5-10.1)
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
[2017-12-03] VITALS (47 sets, daily range): BP systolic 25–140; BP diastolic 9–88; PULSE 0–152; TEMP 97.4–98.3; O2SAT 68–100
[2017-12-03] MEDS: NOREPINEPHRINE 16 MG/D5W 250 ML IV PRN ×10 (00:12→11:14)
[2017-12-03] MEDS ORDERED: CALCIUM CHLORIDE 10% SOLN 1 GRAM/10 ML SYR IV ONE (03:00)
[2017-12-03] MEDS: HYDROCORTISONE SOD SUCCINATE 100 MG VIAL IV PUSH SCH ×2 (03:14→09:54)
[2017-12-03] MEDS: CHLORHEXIDINE GLUCONATE 2 % 1 PACK (2 CLOTHS) TOP SCH (03:15)
[2017-12-03] MEDS: EPINEPHrine (1:1000) INJ 2 MG in DEXTROSE 5% IN WATER INJ 250 ML IV PRN ×12 (03:42→12:49)
[2017-12-03] MEDS ORDERED: SODIUM BICARBONATE 8.4% INJ 50 MEQ/50 ML SYR IV ONE (04:00)
[2017-12-03] MEDS ORDERED: SODIUM CHLOR 0.9% 1000 ML INJ 1,000 ML IV ONE (04:00)
[2017-12-03] MEDS: INSULIN ASPART SUPPLEMENTAL SCALE SQ SCH ×4 (04:00→12:00)
[2017-12-03] MEDS: RESP: ALBUTEROL 2.5 MG/IPRATROPIUM 0.5 MG NEB (SCH) NEB ×3 (04:04→12:40)
[2017-12-03 05:02] LABS: ALBUMIN 1.7 GM/DL (3.4-5.0); BICARBONATE 16.4 MEQ/L (21.0-32.0); CALCIUM 6.3 MG/DL (8.5-10.1); CALCIUM-PROTEIN CORRECTED 7.5 MG/DL (8.5-10.1); CREATININE 4.53 MG/DL (0.60-1.30); MAGNESIUM 1.7 MG/DL (1.5-2.5); PHOSPHORUS 6.6 MG/DL (2.5-4.9); TOTAL BILIRUBIN ADULT 0.9 MG/DL (0.2-1.0); TOTAL PROTEIN 4.6 GM/DL (6.4-8.2); TROPONIN I 0.15 NG/ML (0.02-0.05)
[2017-12-03] MEDS: GABAPENTIN 100 MG CAP PO SCH ×2 (05:13→14:00)
[2017-12-03] MEDS: LEVOTHYROXINE SODIUM 50 MCG TAB PO SCH (05:13)
[2017-12-03 05:20] LABS: HEMATOCRIT 29.3 % (39.0-51.0); HEMOGLOBIN 8.8 GM/DL (13.0-17.0); MEAN CELL VOLUME 85.3 FL (80.0-100.0); MEAN CORPUSCULAR HEMOGLOBIN 25.5 PG (27.0-34.0); MEAN PLATELET VOLUME 9.4 FL (7.0-11.0); PLATELET COUNT 120 TH/MM3 (150-450); RED BLOOD COUNT 3.43 MIL/MM3 (4.50-5.90); RED CELL DISTRIBUTION WIDTH 22.8 % (11.6-17.2); WHITE BLOOD COUNT 2.2 TH/MM3 (4.0-11.0)
[2017-12-03] MEDS: METOCLOPRAMIDE HCL 10 MG/2 ML VIAL IV PUSH SCH ×2 (05:36→14:00)
--- NOTE | 2017-12-03 05:58 | RADRPT ---
EXAM DATE: 12/03/2017 5:24 AM EDT AGE/SEX: 56 years / Male INDICATIONS: Short of breath. CLINICAL DATA: This is the patient's subsequent encounter. Patient reports that signs and symptoms h ave been present for 1 week and indicates a pain score of 0/10. MEDICAL/SURGICAL HISTORY: Congestive heart failure. Chronic obstructive pulmonary disease. Pac emaker. COMPARISON: [facility], CHEST SINGLE AP, 12/02/2017. . FINDINGS: The endotracheal tube, left IJ central line, right IJ Vas-Cath are in good position. There are modera te-sized bilateral pleural effusions. NG tube in good position. Mild consolidation at both lung bases . Radiopaque catheter overlies the midline CONCLUSION: Persistent consolidation in the lung bases. A combination of pleural effusion and atelectasis. Tubes and catheters are stable Electronically signed by: Gunner Topete MD 12/03/2017 5:56 AM EDT
--- NOTE | 2017-12-03 05:59 | RADRPT ---
EXAM DATE: 12/03/2017 5:15 AM EDT AGE/SEX: 56 years / Male INDICATIONS: Ileus. CLINICAL DATA: This is the patient's subsequent encounter. Patient reports that signs and symptoms h ave been present for 1 week and indicates a pain score of 0/10. MEDICAL/SURGICAL HISTORY: Chronic obstructive pulmonary disease. Congestive heart failure. Pac emaker. COMPARISON: [facility] – [place] ABDOMEN KUB ONLY, 12/02/2017. . FINDINGS: The nasogastric tube barely enters the stomach. There is overall paucity of bowel gas. Minimal air-f illed transverse colon in the mid abdomen. The bones are unremarkable CONCLUSION: Overall paucity of bowel gas. No interval change since the Electronically signed by: Gunner Topete MD 12/03/2017 5:57 AM EDT
[2017-12-03 06:51] LABS: MEAN CORPUSCULAR HGB CONC 29.9 % (32.0-36.0)
[2017-12-03 07:02] LABS: BANDS 13 % (0-6); CORRECTED NUCLEATED RBC 217 /100 WBC (0-0); LYMPHOCYTES 9 % (9-44); METAMYELOCYTES 25 % (0-1); MONOCYTES 12 % (0-8); MYELOCYTES 15 % (0-0); NEUTROPHIL # MANUAL DIFF 1.7 TH/MM3 (1.8-7.7); NUCLEATED RED BLOOD CELL 217 (0-0); POLYS (SEG NEUTROPHILS) 26 % (16-70)
[2017-12-03 07:06] LABS: OVALOCYTES 1+ (NORMAL); POLYCHROMASIA 3.5 % (0.0-1.9); TARGET CELLS 1+ (NORMAL)
[2017-12-03] MEDS: RESP: BUDESONIDE 0.5 MG/2 ML NEB NEB SCH (07:34)
[2017-12-03] MEDS ORDERED: VASOPRESSIN INJ 40 UNITS in DEXTROSE 5% IN WATER 100ML INJ 98 ML IV SCH ×2 (07:40)
[2017-12-03] MEDS ORDERED: MIDAZOLAM 100 MG/100 ML INJ 100 ML IV PRN (08:00)
[2017-12-03] MEDS: ARTIFICIAL TEARS OPTH OINT 3.5 APPLIC/3.5 GM TUBO EACH EYE SCH (08:07)
[2017-12-03] MEDS: ARTIFICIAL TEARS OPTH SOLN 15 ML BTL EACH EYE SCH ×2 (08:07→12:12)
--- NOTE | 2017-12-03 08:21 | HHI.CCPN ---
Subjective Remarks/Hospital Course 56 year old male with COPD requiring nasal CPAP, HIV, hepatitis, and MRSA presents with a history of shortness of breath that had been progressively getting worse over the last 24 hours. The patient is currently a resident at [facility]. According to ambulance service, the patient was on hospice which was recently revoked. Upon ambulance arrival the patient was noted to be tachypneic with a respiratory rate in the 40s, O2 saturations were reportedly at 90% on nasal CPAP. The patient's GCS was diminished to 9 whereas the patient's normal GCS is 15. The patient was provided Versed 4 mg IV, etomidate 20 mg IV and intubated with an endotracheal tube, size 7-1/2. The patient had an OG tube placed. The patient was given normal saline 1500 mL in route to this facility. On arrival, the patient not have any spontaneous respiratory activity noted. 11/27: Patient was noted to be hypertensive during the night. Patient scheduled antihypertensive medications reinitiated. Daily sedation vacation patient following commands. The patient tolerated CPAP trials for 3 hours. Her last admission the patient was noted to have heparin platelet antibody positive antigen. Serotonin release assay pending. Fondaparinux 5 mg every 24 hours continued. Patient noted to have elevated potassium level this a.m. 80 mg Lasix IV given patient initiated him on 40 mg twice daily. 11/28: Afebrile. Noted potassium 5.8 this morning creatinine slightly more elevated 4.24 sodium bicarbonate infusion initiated at 42 cc/hr. invasive radiology consulted for Vas-Cath placement scheduled for 11/29/2017. Arixtra has been placed on hold. The patient continues on CPAP trials greater than 3 hours this a.m.. Repeat BMP this afternoon. 11/29: The patient underwent Vas-Cath placement with IR early this a.m..Patient has heparin antibody platelets the patient is unable to utilize heparin flush for dialysis catheter. Argatroban infusion initiated for prophylaxis, and maintenance of Vas-Cath. This was discussed with pharmacology and nephrology. Vancomycin discontinued, Dr. Alexis aware. Patient underwent hemodialysis sodium bicarbonate infusion discontinued. Arixtra discontinued now as contraindicated in the setting of renal failure. 11/30: no improvements or changes. was previously on hospice: overall this gentleman with multiple medical comorbidities is acutely critically ill- may likely not survive this hospitalization. 6/17: Afebrile. Off all vasopressors been very poor access peripherally for blood draws. Certain release assay is negative. Will discontinue argatroban drip. Previous he had a right cephalic thrombus/superficial. Platelets currently greater than 100,000. 12/02: Afebrile. Some tube feed coming from mouth. No residuals noted. Elevated MB is noted. 50 units sliding scale past 24 hours. Platelets continue to rise. 12/03: Patient remains critically ill. He is currently on norepinephrine at 100 mcg/minute and epinephrine at 20 mcg/minute. On CRRT. On pressure control mode at FiO2 of 1. Tmax 100.8. Not on any sedation, poorly responsive, some spontaneous movement, but not following commands. Not synchronized with the ventilator at times. No family present at bedside. Objective Vital Signs Date Time Temp Pulse Resp B/P (MAP) Pulse Ox O2 Delivery O2 Flow Rate FiO2 12/03/17 07:30 103 83/46 12/03/17 04:30 82 12/03/17 04:04 100 12/03/17 04:00 98.1 12/02/17 16:30 18 Intake and Output 12/03/17 12/03/17 12/04/17 08:00 16:00 00:00 Intake Total 2752 ml Output Total 265 ml Balance 2487 ml Result Diagram: 12/03/17 0400 12/03/17 0400 Other Results Microbiology Date/Time Source Procedure Growth Status 12/02/17 14:37 Blood Peripheral Aerobic Blood Culture Pending Received 12/02/17 14:37 Blood Peripheral Anaerobic Blood Culture Pending Received 12/02/17 14:31 Blood Peripheral Aerobic Blood Culture Pending Received 12/02/17 14:31 Blood Peripheral Anaerobic Blood Culture Pending Received Laboratory Tests Test 12/02/17 11:10 12/02/17 15:20 12/02/17 16:35 12/02/17 18:20 Blood Gas Puncture Site ART LINE ART LINE ART LINE ART LINE Blood Gas Patient Temperature 98.6 98.6 98.6 98.6 Blood Gas HCO3 22 mmol/L (22-26) 24 mmol/L (22-26) 21 mmol/L (22-26) 22 mmol/L (22-26) Blood Gas Base Excess -3.8 mmol/L (-2-2) -2.9 mmol/L (-2-2) -5.0 mmol/L (-2-2) -6.2 mmol/L (-2-2) Blood Gas Oxygen Saturation 76 % (90-100) 74 % (90-100) 89 % (90-100) 91 % ( 90-100) Arterial Blood pH 7.29 (7.380-7.420) 7.23 (7.380-7.420) 7.25 (7.380-7.420) 7.14 (7.380-7.420) Arterial Blood Partial Pressure CO2 47 mmHg (38-42) 59 mmHg (38-42) 50 mmHg (38-42) 66 mmHg (38-42) Arterial Blood Partial Pressure O2 55 mmHg (61-120) 55 mmHg (61-120) 80 mmHg (61-120) 98 mmHg (61-120) Arterial Blood Oxygen Content 9.2 Vol % (12.0-20.0) 9.3 Vol % (12.0-20.0) 11.0 Vol % (12.0-20.0) 11.0 Vol % (12.0-20.0) Arterial Blood Carboxyhemoglobin 1.9 % (0-4) 1.7 % (0-4) 1.7 % (0-4) 1.6 % (0-4) Arterial Blood Methemoglobin 1.9 % (0-2) 2.0 % (0-2) 2.0 % (0-2) 1.8 % (0-2) Blood Gas Hemoglobin 8.7 G/DL (12.0-16.0) 8.9 G/DL (12.0-16.0) 8.7 G/DL (12.0-16.0) 8.5 G/DL (12.0-16.0) Oxygen Delivery Device VENTILATOR VENTILATOR VENTILATOR VENTILATOR Blood Gas Ventilator Setting PRVC/AC 580/17/ PRVC/AC 600/18/8PEEP PC/AC RATE 24,IP38 PC/AC RATE24,IP 31 Blood Gas Inspired Oxygen 61 % 100 % 100 % 100 % Test 12/03/17 05:23 Blood Gas Puncture Site IRMA Blood Gas Patient Temperature 98.6 Blood Gas HCO3 17 mmol/L (22-26) Blood Gas Base Excess -10.9 mmol/L (-2-2) Blood Gas Oxygen Saturation 76 % (90-100) Arterial Blood pH 7.13 (7.380-7.420) Arterial Blood Partial Pressure CO2 53 mmHg (38-42) Arterial Blood Partial Pressure O2 60 mmHg (61-120) Arterial Blood Oxygen Content 9.3 Vol % (12.0-20.0) Arterial Blood Carboxyhemoglobin 1.6 % (0-4) Arterial Blood Methemoglobin 1.7 % (0-2) Blood Gas Hemoglobin 8.6 G/DL (12.0-16.0) Oxygen Delivery Device VENT Blood Gas Ventilator Setting SEE COMMENT Blood Gas Inspired Oxygen 100 % Imaging Last 24 hours Impressions Chest X-Ray 12/03/17599 Signed Impressions: CONCLUSION: Persistent consolidation in the lung bases. A combination of pleural effusion a nd atelectasis. Tubes and catheters are stable Abdomen X-Ray 12/03/17599 Signed Impressions: CONCLUSION: Overall paucity of bowel gas. No interval change since the Chest X-Ray 12/02/17 1131 Signed Impressions: CONCLUSION: New left IJ central venous catheter in satisfactory position. No pneumothorax. Advanced cardiomegaly with bilateral effusions. Last Impressions Chest X-Ray 12/02/17599 Signed Impressions: CONCLUSION: Stable single view the chest. No visible pneumothorax. Catheter Placement X-Ray 11/29/17 0737 Signed Impressions: CONCLUSION: Uncomplicated ultrasound guided central venous dialysis line placement as above . Objective Remarks GENERAL: Middle aged gentleman, intubated, unresponsive, ill-appearing. SKIN: Warm and dry. Sacral decubitus ulcer noted. HEAD: Normocephalic. EYES: Pupils are equal and reactive bilaterally with upward gaze. No scleral icterus. No injection or drainage. NECK: Supple, trachea midline. No JVD. Orally intubated. CARDIOVASCULAR: Regular heart sounds, no murmurs appreciated. RESPIRATORY: Distant breath sounds. Coarse breath sounds bilateral, no wheezes. GASTROINTESTINAL: Abdomen is soft, non-tender, nondistended. Bowel sounds decreased. : Significant scrotal edema 4+ MUSCULOSKELETAL: The right lower extremity has 3+ edema, lymphedema noted. Currently with severely wrinkled skin the left lower extremity 1+ edema. Peripheral pulses are decreased NEURO EXAM: Intubated, off sedation, unresponsive. Spontaneously moves right upper extremity. Does not open eyes to voice stimuli does not follow commands. Pupils are equal and reactive. No grimace to pain. He initiates breaths, positive cough. A/P Assessment and Plan 1. Refractory circulatory shock, likely septic -requiring high dose vasopressors. Had cardiac arrest yesterday 2. Acute hypoxic and hypercapnic respiratory failure -worsening 3. Pneumonia - HCAP 4. Lactic acidosis -worsening 5. MARION requiring CRRT 6. Acute encephalopathy 7. AIDS 8. COPD 9. KATARINA 10. Severe pulmonary hypertension 11. Chronic systolic heart failure ejection fraction 20% 12. CAD 13. History of right cephalic thrombus 12/02 previously on fondaparinux 14. Hepatitis B 15. Thrombocytopenia with hit weekly positive optical density 0.514 serotonin release assay strongly negative 0.0 resolved 16. History of right cephalic thrombus 12/02 previously on fondaparinux 17. H/o RA 18. Hypothyroidism 19. Diabetes 1. Continue ventilator, settings changed to PRVC, 420/28/100%, PEEP of 8, plateau at 30, Ti 0.8, without auto PEEP. Continue inhaled Flolan 2. Vent bundle and bronchodilators 3. Continue norepinephrine and epinephrine infusions. Add vasopressin at 0.04 4. Continue stress dose steroids 5. On antibiotics per ID, on Vanco, meropenem and micafungin 6. Continue to hold propofol and start midazolam drip at low-dose to facilitate vent synchrony 7. Start bicarb drip 8. Repeat ABG in 20 minutes 9. CRRT per nephrology 10. HAART medication is on hold 11. GI prophylaxis with famotidine 12. DVT prophylaxis with Lovenox renally adjusted 13. Echocardiogram being done, will follow results Patient is critically ill with multisystem organ failure, hypoxic and hypercapnic respiratory failure, refractory shock, advanced cardiomyopathy, MARION , severe metabolic and respiratory acidosis, post cardiac arrest and he is at extremely high risk for further decompensation and . Prognosis is extremely poor. I spent 45 minutes of critical care time, excluding procedures, managing pressors, severe acidosis, ventilator, reviewing data, ordering investigations, discussing with nursing staff. No family present at bedside. Brief note: Patient continued to decompensate despite maximum support. In addition to norepinephrine, epinephrine and vasopressin due to refractory shock phenylephrine was added. Vent settings was subsequently changed to pressure control but due to worsening hypercapnia and acidosis, as well as vent dyssynchrony, patient was paralyzed and switched again to PRVC 400/30/100%, PEEP of 10. Unable to give higher PEEP due to elevated peak airway pressure and worsening hypercapnia requiring a certain minute ventilation. In addition, due to worsening metabolic acidosis patient was given 3 amps of bicarb. For hypoglycemia patient was started on D10W. Patient continues to be critically ill and he continues to decompensate despite maximum support. Palliative care called Sebastien Thacker and updated him regarding patient's continued decompensation. I spent an additional 40 minutes of critical care time, excluding procedures, managing refractory shock, severe acidosis, ventilator, reviewing data and ordering labs. Jay Harper MD Dec 03, 2017 08:21
[2017-12-03] MEDS ORDERED: SODIUM BICARBONATE 8.4% SOLN 50 MEQ/50 ML VIAL SCH (08:45)
[2017-12-03] MEDS: INSULIN DETEMIR 100 UNITS/ML VIAL SQ SCH (08:52)
[2017-12-03] MEDS: ATOVAQUONE SUSP 750 MG/5 ML UDC PO SCH (09:00)
[2017-12-03] MEDS: ASCORBIC ACID 500 MG TAB PO SCH (09:00)
[2017-12-03] MEDS: DOCUSATE SODIUM 50 MG/SENNA 8.6 MG TAB PO SCH (09:00)
[2017-12-03] MEDS: MULTIVITAMIN TAB PO SCH (09:00)
[2017-12-03] MEDS ORDERED: ROCURONIUM INJ 50 MG/5 ML VIAL IV ONE (09:00)
[2017-12-03] MEDS: ETRAVIRINE 100 MG TAB PO SCH (09:00)
[2017-12-03] MEDS: FAMOTIDINE 20 MG TAB PO SCH (09:00)
[2017-12-03] MEDS: CALCIUM ACETATE 667 MG CAP NG SCH ×2 (09:00→12:16)
[2017-12-03] MEDS ORDERED: MIDAZOLAM HCL 2 MG/2 ML VIAL IV PUSH ONE (09:00)
[2017-12-03] MEDS ORDERED: TERBUTALINE INJ 1 MG/ML AMP SQ PRN (09:30)
[2017-12-03] MEDS: SODIUM CHLORIDE 0.9% FLUSH 10 ML FLUSH IV FLUSH SCH ×2 (09:32)
[2017-12-03] MEDS: CHLORHEXIDINE 0.12% (ORAL KIT) 15 ML CUP MT SCH (09:54)
[2017-12-03] MEDS: PHENYLEPHRINE INJ 40 MG in DEXTROSE 5% IN WATE 500 ML INJ 496 ML IV PRN ×4 (09:58→13:00)
[2017-12-03] MEDS ORDERED: SODIUM BICARBONATE 8.4% INJ 150 MEQ in DEXTROSE 5% IN WATE 1000ML INJ 1,000 ML IV SCH ×2 (10:00)
[2017-12-03] MEDS ORDERED: SODIUM BICARBONATE 8.4% INJ 50 MEQ/50 ML SYR IV PUSH ONE (11:30)
[2017-12-03] MEDS ORDERED: CISATRACURIUM INJ 100 MG in SODIUM CHLOR 0.9% 250 ML INJ 250 ML IV PRN (11:30)
[2017-12-03] MEDS ORDERED: DEXTROSE 10% INJ 1,000 ML IV SCH (11:30)
--- NOTE | 2017-12-03 11:46 | HHI.HCPN ---
Reason for visit a. To assist with evaluation and management of symptoms including: Dyspnea, pain. b. To assist medical decision maker(s) with: better understanding of current medical conditions; weighing benefits/burdens of medical treatment options; making medical treatment decisions. Subjective/Interval History Patient seen and examined in ICU. Discussed with nurse and Dr. Harper and respiratory therapy. Patient CODED x 2 last evening. He remains unstable this morning. On [facility] vent FiO2 100%, PEEP 8 with oxygen saturation in the 70's and agonal respirations. He is maxed out on epi, levo, vaso and orestes and bicarb drips. Despite maximal meds BP systolic 70-80 during my visit. pH 6.9. On continuous dialysis. . Family/friend interactions Spoke with brother/ HCS Sebastien Thacker via telephone. Medical update provided including recent CODE events, critical condition and likelihood patient will CODE again (soon) and that patient will not survive this admission. I have asked him to consider CODE status, reviewed FULL CODE vs NO CODE to allow patient to peacefully and naturally. He is appropriately tearful and asks if he can have some time to think about this. He asks if I can call him back at 12:15pm, we agreed. 12:15pm: Called brotherSebastien he reports he has been unable to reach his family , requests my number so he can call me back after he discusses with family. 1:18pm: Call placed again to Sebastien Thacker to report patient is coding again, advised CPR has been started. Explained we may be calling later today to notify of patient . He verbalizes understanding and verbalizes desire for FULL CODE. Offered support. . Advance Directives Health Care Surrogate: Copy in medical record Advance Directive Specifics Date completed: 06/04/2014 . Health Care Surrogate(s): Patient named his brother, Sebastien Thacker, as his healthcare surrogate. . Documented care wishes: No living will available. . Significant change in goals: FULL CODE. Desires continued aggressive care including FULL CODE understanding patient is not expected to survive even with all aggressive measures. . Objective Vital Signs Date Time Temp Pulse Resp B/P (MAP) Pulse Ox O2 Delivery O2 Flow Rate FiO2 12/03/17 11:19 70 100 12/03/17 11:14 96 69/49 12/03/17 11:03 97 71/49 12/03/17 10:46 97 25/9 (14) 69 69/48 (55) 618 10:30 99 53/37 (42) 68/47 (54) 18 10:16 99 71/47 (55) 69/47 (54) 18 10:01 100 101/60 (74) 70/48 (55) 18 10:00 101 70/48 (55) 18 10:00 101 12/03/17 09:58 101 73/43 12/03/17 09:46 104 73/48 (56) 66/47 (53) 12/03/17 09:43 105 62/47 12/03/17 09:31 107 90/39 (56) 58/43 (48) 12/03/17 09:21 109 86/38 (54) 55/40 (45) 12/03/17 09:00 101 90/56 (67) 76 12/03/17 08:55 100 12/03/17 08:29 101 87/57 12/03/17 08:22 102 140/88 (105) 77 85/57 (66) 12/03/17 08:16 90 100 12/03/17 08:07 102 83/57 12/03/17 08:00 102 12/03/17 08:00 97.4 102 87/52 (64) 77 12/03/17 08:00 100 12/03/17 07:46 103 122/79 (93) 79 78/45 (56) 12/03/17 07:31 103 85/61 (69) 81 82/46 (58) 12/03/17 07:30 103 83/46 12/03/17 07:16 101 90/52 (65) 82 88/46 (60) 12/03/17 07:00 100 84/46 (59) 82 87/47 (60) 18 06:00 93 18 05:41 86 68/41 618 05:30 86 73/43 18 04:30 86 75/41 (52) 82 6/18 04:04 83 100 18 04:00 87 12/03/17 04:00 98.1 90 81 69/43 (52) 6/19/18 04:00 100 12/03/17 03:42 91 68/44 618 03:30 92 61/42 (48) 82 61918 03:30 92 61/42 618 03:27 93 78/44 (55) 85 68/45 (53) 18 03:15 100 68/46 618 03:05 100 78/49 618 03:01 100 100/44 (62) 87 78/50 (59) 12/03/17 03:00 100 80/50 (60) 86 619/18 03:00 100 80/50 618 02:45 101 75/54 (61) 87 80/51 (61) 18 02:30 100 76/51 (59) 87 81/50 (60) 18 02:15 100 78/56 (63) 87 83/49 (60) 12/03/17 02:01 98 85/47 (60) 89 87/50 (62) 12/03/17 02:00 100 12/03/17 02:00 98 88/51 (63) 89 18 01:50 100 83/52 12/03/17 01:45 99 73/48 (56) 84 84/53 (63) 12/03/17 01:40 99 84/52 12/03/17 01:31 99 77/38 (51) 85/54 (64) 12/03/17 01:30 99 86/54 (65) 12/03/17 01:30 99 86/54 12/03/17 01:20 99 87/53 12/03/17 01:15 97 70/50 (57) 100 83/51 (62) 18 01:10 97 84/52 618 01:00 97 82/52 (62) 82 89/53 (65) 18 01:00 97 89/53 618 00:50 97 93/54 6/18 00:40 97 92/53 618 00:30 97 88/52 (64) 84 98/54 (69) 12/03/17 00:30 97 98/54 618 00:20 96 96/52 6/19/18 00:15 96 83/52 (62) 84 97/55 (69) 12/03/17 00:12 96 96/54 12/03/17 00:00 100 12/03/17 00:00 96 12/03/17 00:00 98.3 96 75/52 (60) 82 89/53 (65) 12/02/17 23:45 96 84/53 (63) 84 91/54 (66) 12/02/17 23:44 84 100 12/02/17 23:30 96 83/52 (62) 84 91/53 (66) 12/02/17 23:30 96 91/53 12/02/17 23:15 97 80/51 (61) 86 92/54 (67) 12/02/17 23:10 97 80/51 (61) 87 92/54 (67) 12/02/17 23:10 97 92/54 12/02/17 23:00 98 76/48 (57) 86 85/53 (64) 12/02/17 23:00 98 85/53 12/02/17 22:45 98 81/52 12/02/17 22:34 99 90/54 12/02/17 22:30 98 78/44 (55) 86 88/54 (65) 12/02/17 22:25 98 82/44 (57) 86 86/54 (65) 12/02/17 22:20 98 83/48 (60) 86 80/52 (61) 12/02/17 22:20 98 80/57 12/02/17 22:15 100 81/45 (57) 87 88/55 (66) 12/02/17 22:10 99 88/47 (61) 87 88/55 (66) 12/02/17 22:10 99 88/55 12/02/17 22:05 100 87/50 (62) 86 89/56 (67) 12/02/17 22:00 100 80/51 (61) 84 79/52 (61) 18 22:00 99 18 22:00 100 79/52 12/02/17 21:55 100 78/51 (60) 85 79/52 (61) 12/02/17 21:50 100 79/53 (62) 86 75/51 (59) 6/18/18 21:50 100 75/51 6/18/18 21:45 100 81/51 (61) 81 75/52 (60) 6/18/18 21:40 101 84/51 (62) 87 76/53 (61) 6/18/18 21:40 101 76/53 6/18/18 21:39 101 81/48 (59) 77 77/53 (61) 6/18/18 21:33 101 82/47 6/18/18 21:30 102 82/47 (59) 83 74/52 (59) 6/18/18 21:25 105 83/48 (60) 84 74/51 (59) 6/18/18 21:20 104 88/49 (62) 85 76/50 (59) 6/18/18 21:20 104 76/50 6/18/18 21:16 104 98/56 (70) 83 78/52 (61) 6/18/18 21:13 104 83/53 6/18/18 21:13 103 82/52 6/18/18 21:10 103 89/51 (64) 84 82/52 (62) 6/18/18 21:05 102 91/53 (66) 87 83/52 (62) 6/18/18 21:00 102 91/52 (65) 88 85/53 (64) 6/18/18 21:00 102 85/53 6/18/18 20:50 101 83/51 6/18/18 20:40 101 82/50 6/18/18 20:30 102 85/51 6/18/18 20:30 102 84/51 (62) 86 85/51 (62) 6/18/18 20:25 101 86/53 (64) 85 83/50 (61) 6/18/18 20:20 100 85/50 (62) 86 81/49 (60) 6/18/18 20:20 100 81/49 6/18/18 20:15 100 88/55 (66) 86 80/47 (58) 6/18/18 20:10 101 93/55 (68) 87 83/48 (60) 6/18/18 20:10 101 83/48 6/18/18 20:07 100 100 6/18/18 20:05 100 87/52 (64) 87 83/49 (60) 6/18/18 20:00 100 6/18/18 20:00 100.8 99 92/57 (69) 88 85/49 (61) 6/18/18 20:00 99 6/18/18 20:00 99 85/49 6/18/18 19:55 99 93/56 (68) 87 84/49 (61) 6/18/18 19:50 100 97/55 (69) 88 90/52 (65) 6/18/18 19:45 99 94/51 (65) 88 90/52 (65) 6/18/18 19:45 99 90/52 6/18/18 19:40 98 94/53 (67) 88 91/52 (65) 6/18/18 19:35 98 100/57 (71) 89 94/53 (67) 6/18/18 19:30 97 99/55 (70) 89 92/51 (65) 6/18/18 19:30 97 92/51 6/18/18 19:25 100 98/57 (71) 90 89/47 (61) 6/18/18 19:20 100 101/58 (72) 90 99/54 (69) 6/18/18 19:15 100 104/58 (73) 90 92/47 (62) 6/18/18 19:15 100 92/47 6/18/18 19:10 101 101/56 (71) 90 90/46 (61) 6/18/18 19:05 101 106/59 (75) 90 89/44 (59) 6/18/18 19:00 102 107/60 (76) 91 73/29 (44) 6/18/18 19:00 102 107/60 6/18/18 19:00 102 107/60 6/18/18 18:00 100 6/18/18 18:00 104 6/18/18 16:56 100 90/52 6/18/18 16:30 94 18 113/58 (76) 89 69/40 (50) 6/18/18 16:00 100 6/18/18 16:00 97.8 95 18 78/52 (61) 72 6/18/18 16:00 95 6/18/18 15:29 87 88/52 6/18/18 15:15 90 100 6/18/18 14:00 100 12/02/17 14:00 89 12/02/17 12:00 100 12/02/17 12:00 97.6 84 18 116/65 (82) 94 79/47 (58) 12/02/17 12:00 84 Intake & Output 12/03/17 12/03/17 07:00 19:00 Intake Total 3602 ml 252 ml Output Total 265 ml Balance 3337 ml 252 ml IV Total 3602 ml 252 ml Output Urine Total 15 ml Gastric Drainage Total 250 ml # Bowel Movements 1 Physical Exam CONSTITUTIONAL/GENERAL: This is an adequately nourished patient, in no apparent distress. TUBES/LINES/DRAINS: Left IJ central line, right IJ Vas-Cath, PIV, RFA, right groin arterial line, Wang, ET tube, SKIN: Ecchymoses on upper extremities. EYES: eyes closed. CARDIOVASCULAR: irregularly irregular, 2/6 systolic ejection murmur. RESPIRATORY/CHEST: Unable to auscultate breath sounds in all lobes. Agonal respirations on vent. GASTROINTESTINAL: Abdomen distended. GENITOURINARY: Without palpable bladder distension. Wang catheter in place. Scrotal edema noted. MUSCULOSKELETAL: 2+ pitting edema to the hips. NEUROLOGICAL: Intubated, sedated. PSYCHIATRIC: Sedated. . Diagnostic Tests Laboratory Laboratory Tests Test 12/01/17 08:13 12/01/17 16:00 12/02/17 05:42 12/02/17 11:10 Blood Urea Nitrogen 93 MG/DL (7-18) 94 MG/DL (7-18) Creatinine 4.63 MG/DL (0.60-1.30) 4.79 MG/DL (0.60-1.30) Random Glucose 258 MG/DL (74-106) 241 MG/DL (74-106) Total Protein 5.7 GM/DL (6.4-8.2) 5.7 GM/DL (6.4-8.2) 5.4 GM/DL (6.4-8.2) Calcium Level 7.2 MG/DL (8.5-10.1) 6.8 MG/DL (8.5-10.1) Sodium Level 138 MEQ/L (136-145) 139 MEQ/L (136-145) Potassium Level 5.3 MEQ/L (3.5-5.1) 5.2 MEQ/L (3.5-5.1) Chloride Level 100 MEQ/L (98-107) 100 MEQ/L (98-107) Carbon Dioxide Level 20.8 MEQ/L (21.0-32.0) 19.7 MEQ/L (21.0-32.0) Anion Gap 17 MEQ/L (5-15) 19 MEQ/L (5-15) Estimat Glomerular Filtration Rate 16 ML/MIN (>89) 15 ML/MIN (>89) Protein Corrected Calcium 7.9 MG/DL (8.5-10.1) 7.7 MG/DL (8.5-10.1) White Blood Count 5.3 TH/MM3 (4.0-11.0) 4.5 TH/MM3 (4.0-11.0) Red Blood Count 3.41 MIL/MM3 (4.50-5.90) 3.49 MIL/MM3 (4.50-5.90) Hemoglobin 8.9 GM/DL (13.0-17.0) 9.2 GM/DL (13.0-17.0) Hematocrit 28.8 % (39.0-51.0) 29.7 % (39.0-51.0) Mean Corpuscular Volume 84.6 FL (80.0-100.0) 85.0 FL (80.0-100.0) Mean Corpuscular Hemoglobin 26.3 PG (27.0-34.0) 26.3 PG (27.0-34.0) Mean Corpuscular Hemoglobin Concent 31.0 % (32.0-36.0) 30.9 % (32.0-36.0) Red Cell Distribution Width 22.0 % (11.6-17.2) 22.3 % (11.6-17.2) Platelet Count 166 TH/MM3 (150-450) 184 TH/MM3 (150-450) Mean Platelet Volume 8.5 FL (7.0-11.0) 8.5 FL (7.0-11.0) Prothrombin Time 38.9 SEC (9.8-11.6) Prothromb Time International Ratio 3.9 RATIO Activated Partial Thromboplast Time 59.7 SEC (24.3-30.1) Fibrinogen 286 mg/dL (227-377) Phosphorus Level 7.1 MG/DL (2.5-4.9) 7.3 MG/DL (2.5-4.9) Magnesium Level 2.3 MG/DL (1.5-2.5) 2.4 MG/DL (1.5-2.5) Total Bilirubin 0.6 MG/DL (0.2-1.0) 0.6 MG/DL (0.2-1.0) Direct Bilirubin 0.2 MG/DL (0.0-0.2) Indirect Bilirubin 0.4 MG/DL (0.0-0.8) Aspartate Amino Transf (AST/SGOT) 26 U/L (15-37) 24 U/L (15-37) Alanine Aminotransferase (ALT/SGPT) 18 U/L (12-78) 29 U/L (12-78) Alkaline Phosphatase 50 U/L (45-117) 60 U/L (45-117) Total Creatine Kinase 22 U/L (39-308) Albumin 2.2 GM/DL (3.4-5.0) 2.1 GM/DL (3.4-5.0) CBC Comment AUTO DIFF Differential Total Cells Counted 100 Neutrophils % (Manual) 70 % (16-70) Band Neutrophils % 27 % (0-6) Lymphocytes % 3 % (9-44) Neutrophils # (Manual) 4.4 TH/MM3 (1.8-7.7) Nucleated Red Blood Cells 2 /100 WBC (0-0) Differential Comment FINAL DIFF MANUAL Platelet Estimate NORMAL (NORMAL) Platelet Morphology Comment NORMAL (NORMAL) Blood Gas Puncture Site ART LINE Blood Gas Patient Temperature 98.6 Blood Gas HCO3 22 mmol/L (22-26) Blood Gas Base Excess -3.8 mmol/L (-2-2) Blood Gas Oxygen Saturation 76 % (90-100) Arterial Blood pH 7.29 (7.380-7.420) Arterial Blood Partial Pressure CO2 47 mmHg (38-42) Arterial Blood Partial Pressure O2 55 mmHg (61-120) Arterial Blood Oxygen Content 9.2 Vol % (12.0-20.0) Arterial Blood Carboxyhemoglobin 1.9 % (0-4) Arterial Blood Methemoglobin 1.9 % (0-2) Blood Gas Hemoglobin 8.7 G/DL (12.0-16.0) Oxygen Delivery Device VENTILATOR Blood Gas Ventilator Setting [facility]/AC / Blood Gas Inspired Oxygen 61 % Test 12/02/17 12:20 12/02/17 12:35 12/02/17 14:30 12/02/17 15:20 Potassium Level 5.0 MEQ/L (3.5-5.1) Troponin I 0.04 NG/ML (0.02-0.05) Lactic Acid Level 1.9 mmol/L (0.4-2.0) White Blood Count 3.3 TH/MM3 (4.0-11.0) Red Blood Count 3.53 MIL/MM3 (4.50-5.90) Hemoglobin 9.3 GM/DL (13.0-17.0) Hematocrit 30.1 % (39.0-51.0) Mean Corpuscular Volume 85.3 FL (80.0-100.0) Mean Corpuscular Hemoglobin 26.3 PG (27.0-34.0) Mean Corpuscular Hemoglobin Concent 30.8 % (32.0-36.0) Red Cell Distribution Width 22.4 % (11.6-17.2) Platelet Count 239 TH/MM3 (150-450) Mean Platelet Volume 8.2 FL (7.0-11.0) Prothrombin Time 17.3 SEC (9.8-11.6) Prothromb Time International Ratio 1.7 RATIO Activated Partial Thromboplast Time 44.1 SEC (24.3-30.1) Fibrinogen 353 mg/dL (227-377) Blood Gas Puncture Site ART LINE Blood Gas Patient Temperature 98.6 Blood Gas HCO3 24 mmol/L (22-26) Blood Gas Base Excess -2.9 mmol/L (-2-2) Blood Gas Oxygen Saturation 74 % (90-100) Arterial Blood pH 7.23 (7.380-7.420) Arterial Blood Partial Pressure CO2 59 mmHg (38-42) Arterial Blood Partial Pressure O2 55 mmHg (61-120) Arterial Blood Oxygen Content 9.3 Vol % (12.0-20.0) Arterial Blood Carboxyhemoglobin 1.7 % (0-4) Arterial Blood Methemoglobin 2.0 % (0-2) Blood Gas Hemoglobin 8.9 G/DL (12.0-16.0) Oxygen Delivery Device VENTILATOR Blood Gas Ventilator Setting [facility]/AC [id number] Blood Gas Inspired Oxygen 100 % Test 12/02/17 16:35 12/02/17 18:20 12/02/17 18:35 12/03/17 00:20 Blood Gas Puncture Site ART LINE ART LINE Blood Gas Patient Temperature 98.6 98.6 Blood Gas HCO3 21 mmol/L (22-26) 22 mmol/L (22-26) Blood Gas Base Excess -5.0 mmol/L (-2-2) -6.2 mmol/L (-2-2) Blood Gas Oxygen Saturation 89 % (90-100) 91 % (90-100) Arterial Blood pH 7.25 (7.380-7.420) 7.14 (7.380-7.420) Arterial Blood Partial Pressure CO2 50 mmHg (38-42) 66 mmHg (38-42) Arterial Blood Partial Pressure O2 80 mmHg (61-120) 98 mmHg (61-120) Arterial Blood Oxygen Content 11.0 Vol % (12.0-20.0) 11.0 Vol % (12.0-20.0) Arterial Blood Carboxyhemoglobin 1.7 % (0-4) 1.6 % (0-4) Arterial Blood Methemoglobin 2.0 % (0-2) 1.8 % (0-2) Blood Gas Hemoglobin 8.7 G/DL (12.0-16.0) 8.5 G/DL (12.0-16.0) Oxygen Delivery Device VENTILATOR VENTILATOR Blood Gas Ventilator Setting PC/AC RATE 24,IP38 PC/AC RATE24,IP 31 Blood Gas Inspired Oxygen 100 % 100 % White Blood Count 1.8 TH/MM3 (4.0-11.0) Red Blood Count 3.40 MIL/MM3 (4.50-5.90) Hemoglobin 8.8 GM/DL (13.0-17.0) Hematocrit 29.5 % (39.0-51.0) Mean Corpuscular Volume 86.7 FL (80.0-100.0) Mean Corpuscular Hemoglobin 25.9 PG (27.0-34.0) Mean Corpuscular Hemoglobin Concent 29.9 % (32.0-36.0) Red Cell Distribution Width 22.3 % (11.6-17.2) Platelet Count 219 TH/MM3 (150-450) Mean Platelet Volume 8.2 FL (7.0-11.0) Blood Urea Nitrogen 95 MG/DL (7-18) Creatinine 5.20 MG/DL (0.60-1.30) Random Glucose 175 MG/DL (74-106) Total Protein 4.7 GM/DL (6.4-8.2) Albumin 1.9 GM/DL (3.4-5.0) Calcium Level 6.6 MG/DL (8.5-10.1) Phosphorus Level 7.4 MG/DL (2.5-4.9) Magnesium Level 2.1 MG/DL (1.5-2.5) Alkaline Phosphatase 41 U/L (45-117) Aspartate Amino Transf (AST/SGOT) 25 U/L (15-37) Alanine Aminotransferase (ALT/SGPT) 18 U/L (12-78) Total Bilirubin 0.9 MG/DL (0.2-1.0) Direct Bilirubin 0.4 MG/DL (0.0-0.2) Sodium Level 138 MEQ/L (136-145) Potassium Level 5.4 MEQ/L (3.5-5.1) Chloride Level 101 MEQ/L (98-107) Carbon Dioxide Level 20.0 MEQ/L (21.0-32.0) Anion Gap 17 MEQ/L (5-15) Estimat Glomerular Filtration Rate 14 ML/MIN (>89) Lactic Acid Level 4.3 mmol/L (0.4-2.0) 3.9 mmol/L (0.4-2.0) Protein Corrected Calcium 7.8 MG/DL (8.5-10.1) Indirect Bilirubin 0.5 MG/DL (0.0-0.8) Troponin I 0.08 NG/ML (0.02-0.05) 0.13 NG/ML (0.02-0.05) Test 12/03/17 04:00 12/03/17 05:23 12/03/17 08:30 12/03/17 11:00 White Blood Count 2.2 TH/MM3 (4.0-11.0) Red Blood Count 3.43 MIL/MM3 (4.50-5.90) Hemoglobin 8.8 GM/DL (13.0-17.0) Hematocrit 29.3 % (39.0-51.0) Mean Corpuscular Volume 85.3 FL (80.0-100.0) Mean Corpuscular Hemoglobin 25.5 PG (27.0-34.0) Mean Corpuscular Hemoglobin Concent 29.9 % (32.0-36.0) Red Cell Distribution Width 22.8 % (11.6-17.2) Platelet Count 120 TH/MM3 (150-450) Mean Platelet Volume 9.4 FL (7.0-11.0) CBC Comment AUTO DIFF Differential Total Cells Counted 100 Neutrophils % (Manual) 26 % (16-70) Band Neutrophils % 13 % (0-6) Lymphocytes % 9 % (9-44) Monocytes % 12 % (0-8) Neutrophils # (Manual) 1.7 TH/MM3 (1.8-7.7) Metamyelocytes 25 % (0-1) Myelocytes 15 % (0-0) Nucleated Red Blood Cells 217 /100 WBC (0-0) Differential Comment FINAL DIFF MANUAL Platelet Estimate LOW (NORMAL) Platelet Morphology Comment ENLARGED (NORMAL) Polychromasia 3.5 % (0.0-1.9) Target Cells 1+ (NORMAL) Ovalocytes 1+ (NORMAL) Blood Urea Nitrogen 81 MG/DL (7-18) Creatinine 4.53 MG/DL (0.60-1.30) Random Glucose 124 MG/DL (74-106) Total Protein 4.6 GM/DL (6.4-8.2) Albumin 1.7 GM/DL (3.4-5.0) Calcium Level 6.3 MG/DL (8.5-10.1) Phosphorus Level 6.6 MG/DL (2.5-4.9) Magnesium Level 1.7 MG/DL (1.5-2.5) Alkaline Phosphatase 34 U/L (45-117) Aspartate Amino Transf (AST/SGOT) 61 U/L (15-37) Alanine Aminotransferase (ALT/SGPT) 15 U/L (12-78) Total Bilirubin 0.9 MG/DL (0.2-1.0) Sodium Level 139 MEQ/L (136-145) Potassium Level 5.2 MEQ/L (3.5-5.1) Chloride Level 104 MEQ/L (98-107) Carbon Dioxide Level 16.4 MEQ/L (21.0-32.0) Anion Gap 19 MEQ/L (5-15) Estimat Glomerular Filtration Rate 16 ML/MIN (>89) Lactic Acid Level 4.4 mmol/L (0.4-2.0) Protein Corrected Calcium 7.5 MG/DL (8.5-10.1) Troponin I 0.15 NG/ML (0.02-0.05) Blood Gas Puncture Site IRMA ART LINE ART LINE Blood Gas Patient Temperature 98.6 98.6 98.6 Blood Gas HCO3 17 mmol/L (22-26) 17 mmol/L (22-26) 13 mmol/L (22-26) Blood Gas Base Excess -10.9 mmol/L (-2-2) -12.5 mmol/L (-2-2) -17.6 mmol/L (-2-2) Blood Gas Oxygen Saturation 76 % (90-100) 72 % (90-100) 63 % (90-100) Arterial Blood pH 7.13 (7.380-7.420) 7.01 (7.380-7.420) 6.92 (7.380-7.420) Arterial Blood Partial Pressure CO2 53 mmHg (38-42) 71 mmHg (38-42) 65 mmHg (38-42) Arterial Blood Partial Pressure O2 60 mmHg (61-120) 61 mmHg (61-120) 55 mmHg (61-120) Arterial Blood Oxygen Content 9.3 Vol % (12.0-20.0) 9.8 Vol % (12.0-20.0) 7.9 Vol % (12.0-20.0) Arterial Blood Carboxyhemoglobin 1.6 % (0-4) 1.2 % (0-4) 1.0 % (0-4) Arterial Blood Methemoglobin 1.7 % (0-2) 1.8 % (0-2) 1.6 % (0-2) Blood Gas Hemoglobin 8.6 G/DL (12.0-16.0) 9.6 G/DL (12.0-16.0) 8.8 G/DL (12.0-16.0) Oxygen Delivery Device VENT VENTILATOR VENTILATOR Blood Gas Ventilator Setting SEE COMMENT PRVC/AC 420/30 [id number],IP 28 Blood Gas Inspired Oxygen 100 % 100 % 100 % Result Diagram: 12/03/17 0400 12/03/17 0400 Microbiology Microbiology Date/Time Source Procedure Growth Status 12/02/17 14:37 Blood Peripheral Aerobic Blood Culture - Preliminary Gram Negative Domingo Resulted 12/02/17 14:37 Blood Peripheral Anaerobic Blood Culture - Preliminary NO GROWTH IN 1 DAY Resulted 12/02/17 14:31 Blood Peripheral Aerobic Blood Culture - Preliminary Gram Negative Domingo Resulted 12/02/17 14:31 Blood Peripheral Anaerobic Blood Culture - Preliminary NO GROWTH IN 1 DAY Resulted Imaging Last Impressions Chest X-Ray 12/03/17 0600 Signed Impressions: CONCLUSION: Persistent consolidation in the lung bases. A combination of pleural effusion a nd atelectasis. Tubes and catheters are stable Abdomen X-Ray 12/03/17 0600 Signed Impressions: CONCLUSION: Overall paucity of bowel gas. No interval change since the Upper Extremity Ultrasound 12/02/17 0000 Signed Impressions: CONCLUSION: 1. Negative for deep venous thrombosis. There is a small nonocclusive thrombus in the cephalic vein at the antecubital fossa on the right, similar to November 20 exam. Lower Extremity Ultrasound 12/02/17 0000 Signed Impressions: CONCLUSION: 1. The study is negative for bilateral lower extremity deep venous thrombosis. Catheter Placement X-Ray 11/29/17 0737 Signed Impressions: CONCLUSION: Uncomplicated ultrasound guided central venous dialysis line placement as above . Procedures 11/26: Intubation 11/29: Vas-Cath placement right IJ 12/02: Left IJ central line placement 12/02: Right femoral arterial line placement . Assessment and Plan Disease Oriented Problem List: (1) Altered mental status (2) Hepatitis B (3) History of drug abuse (4) CHF (congestive heart failure) (5) Hypothyroidism (6) Lymphadenopathy (7) Hepatitis C (8) Chronic kidney disease, stage 4 (severe) (9) COPD (chronic obstructive pulmonary disease) (10) AIDS (11) HIV (human immunodeficiency virus infection) (12) Acute on chronic systolic (congestive) heart failure (13) pneumonia in a immunocompromise patient Symptom Scale: (1) Shortness of breath 0-10 Scale: Unable to quantify (Intubated, sedated) (2) Altered mental status 0-10 Scale: Unable to quantify (Intubated, sedated) Pertinent Non-Medical Issues Psychosocial:He was born and brought up in [place] and dropped out of school in the ninth grade. He started abusing drugs at age 14 and has been incarcerated numerous times, starting at age 14. He states that he has been in alf at least 3 or 4 times on stimulant delivery of drugs as well as aggravated assault. He states he has a history of abusing alcohol in the past. He is and has no children. Spiritual:Not an important concept to the patient. Legal: Healthcare surrogate is his brother, Sebastien. Ethical issues impacting care:none noted. . Important Contacts Brother: Sebastien Thacker (cell), (work) : Yahaira Thacker (resides at [facility]) Niece: Cathy Santos (home), (office) . Prognosis His prognosis is guarded. He is admitted with respiratory failure, now intubated and sedated, likely secondary to pneumonia. He has a history of noncompliance with his HIV/AIDS medications and frequently stops taking them. He is also has a history of Kaposi's sarcoma and again has been noncompliant with medical follow-up and recommendations. He has a history of polysubstance abuse and severe congestive heart failure, acute on chronic renal failure, COPD now with respiratory failure. As he is immunocompromised with multisystem organ failure, it is very likely he will not survive this hospitalization. . Code Status: Full Code Plan * Legal decision maker: At this time the patient is intubated and sedated and is not capacitated to make his own decisions. In a previous admission he had made his brother, Sebastien Thacker, his healthcare surrogate and per my discussion with Sebastien, he wishes his brother to remain a full code at this time. * Goals: Spoke with brotherSebastien via phone, he understands patient will not likely survive this admission, he appears to be dying now. After consideration, the brotherSebastien desires continued aggressive care including FULL CODE. * FULL CODE * Palliative care will continue to follow the patient during hospital course as condition evolves, to assist patient/decision-maker with understanding of their medical conditions, weighing benefits/burdens of treatment options, for clarification of goals of treatment. Additionally will assist with any symptoms of palliative concern. SYMPTOMS: * Altered mental status: Presented with altered mental status from the residential facility, likely secondary to impending respiratory failure. At this time he is intermittently responding appropriately to commands when sedation is lifted and is withdrawing to pain in all 4 extremities with noxious stimuli. Unable to further evaluate mental status at this time due to clinical condition and sedation. * Dyspnea: Multifactorial to include pneumonia, pulmonary hypertension, COPD, acute on chronic systolic heart failure with EF 15-20%, renal failure and fluid volume excess. He is currently intubated and sedated requiring 100% FiO2 for adequate saturations. * Pain: due to recent PEA arrest, tubes, machines, general debility. No medication recommendations at this time. . Attestation To help prompt me to consider important information that might be impacting today's encounter and assessment, information from prior notes written by myself or my colleagues may have been "brought forward" into today's note. My signature on this note, however, is an attestation that I personally performed the exam, history, and/or decision-making noted today, and, unless otherwise indicated, the interactions with patient, family, and staff as well as the review of records all occurred today. I also attest that the listed assessment and stated plan reflect my best clinical judgment today based on the combination of historical information, prior notes, and today's exam/ interactions. When time spent is documented, it refers only to time spent today by the signer, or if indicated, combined time spent today by collaborating physician/nurse practitioner. Renetta Greene Dec 03, 2017 11:46
[2017-12-03] MEDS: MUPIROCIN 2% OINT 1 APPLIC/GM SYR EACH NARE SCH (11:53)
[2017-12-03] MEDS ORDERED: MIDAZOLAM 50 MG/50 ML INJ 50 ML IV PRN (12:00)
[2017-12-03] MEDS: ENOXAPARIN SODIUM 30 MG/0.3 ML SYRINGE SQ SCH (12:12)
--- NOTE | 2017-12-03 13:27 | PD.PROCEDR ---
Procedure Note Procedure CODE STEVEN [facility] Time of code: 13:06 Return of spontaneous circulation: 13:14 Responded to CODE BLUE. On my arrival CPR in progress. ACLS protocol was initiated, patient received epinephrine 3 and due to refractory acidosis bicarb 2. Return of spontaneous circulation was obtained after 8 minutes of CPR. Patient was placed back on the ventilator and postcode laboratories and ABG and chest x-ray are currently pending. Palliative care: Sebastien Thacker (brother ) during the code for update. Time of code: 13:28 Return of spontaneous circulation: 13:34 Responded to CODE BLUE. On my arrival CPR in progress. ACLS protocol was initiated, patient received epinephrine 2 and due to refractory acidosis bicarb 1. Return of spontaneous circulation was obtained after 6 minutes of CPR. Patient became asystolic for the third time. ACLS protocol was initiated. Four epinephrine given and two additinal amps of bicarb. ROSC was achieved after 10 minutes of asystole. I attempted to call his brother, Sebastien, both on his cell phone and on the work phone and I left a voicemail to call back. Patient's pupils are dilated and not reactive. Will continue all aggressive support measures however despite all our efforts patient continues to decompensate and will likely not survive this day. Patient coded again at 14:28 and he received epinephrine 2 and bicarb 1 with successful return of spontaneous circulation at 14:36. Patient became asystolic again at 14: 48 and he received epinephrine 3 and bicarb 1, with successful return of spontaneous circulation at 15:00. I had a long conversation with Sebastien Thacker, patient's brother and decision-maker and Keke from palliative care in which I explained patient's critical condition and the fact that his heart stops 5 times. Sebastien decided to let patient go in peace therefore a DNR order was placed. Patient at 15:24. On my arrival patient in asystole, with no palpable pulse, pupils dilated and nonreactive, no spontaneous breathing, no heart sounds , no palpable pulse. Patient was pronounced at 15:24, on 12/03/2017. Family to be notified by RN. Patient remains critically ill and at very high risk for further decompensation and . Jay Harper MD Dec 03, 2017 13:27
[2017-12-03] MEDS ORDERED: EPINEPHrine (1:1000) INJ 2 MG in DEXTROSE 5% IN WATER INJ 250 ML IV PRN ×2 (13:30)
--- NOTE | 2017-12-03 14:26 | RADRPT ---
EXAM DATE: 12/03/2017 2:12 PM EDT AGE/SEX: 56 years / Male INDICATIONS: Short of breath, evaluate pneumonia CLINICAL DATA: This is the patient's subsequent encounter. Patient reports that signs and symptoms h ave been present for 1 week and indicates a pain score of Nonresponsive. MEDICAL/SURGICAL HISTORY: Congestive heart failure. Chronic obstructive pulmonary disease. Pac emaker. COMPARISON: C, CHEST SINGLE AP, 12/03/2017. . FINDINGS: Limited exam due to omission of the extreme lung bases and left lateral chest. Stable ETT, left IJ ce ntral line, and right IJ dialysis catheter. Improved aeration of the lungs with improved hazy opaciti es bilaterally and patchy airspace disease. Cardiac silhouette remains enlarged pulmonary vascularity is indistinct. Remainder of the exam is unchanged. CONCLUSION: 1. Stable tubes and lines, as above. 2. Improved pulmonary vascular congestion with improved bilateral pleural effusions and patchy airsp alicja disease. Electronically signed by: Robert Gutierrez MD 12/03/2017 2:25 PM EDT
[2017-12-03] MEDS ORDERED: EPINEPHrine HCL (1:10,000) 1 MG/10 ML SYRINGE ONE (15:00)
--- NOTE | 2017-12-03 15:07 | HHI.NPPN ---
Subjective General Problems: Anemia, Edema, Hypertension Renal Failure: Chronic, Acute, Stage IV History of Present Illness 56-year-old male known to me from before with a past medical history of hypertension, HIV, COPD, chronic kidney disease stage IV, lymphedema of the legs, diabetes mellitus, congestive heart failure, sleep apnea, who came to the hospital with worsening shortness of breath. I was called to see the patient because of elevated BUN and creatinine. The patient has a known history of chronic kidney disease. Additional Remarks Seen in AM. Remains intubated on multiple pressors for blood pressure support s/ p code yesterday. On CRRT now. (Sameera Rudd) Review of Systems General General Remarks unable to do review of system as patient is intubated. (Sameera Rudd) Objective Data Data 12/03/17 12/04/17 19:00 07:00 Intake Total 1258 ml Balance 1258 ml IV Total 1258 ml Vital Signs Date Time Temp Pulse Resp B/P (MAP) Pulse Ox O2 Delivery O2 Flow Rate FiO2 12/03/17 13:00 91 60/43 12/03/17 12:49 92 66/46 12/03/17 12:00 100 12/03/17 11:19 70 100 12/03/17 11:14 96 69/49 12/03/17 11:03 97 71/49 12/03/17 10:46 97 25/9 (14) 69 69/48 (55) 12/03/17 10:30 99 53/37 (42) 68/47 (54) 12/03/17 10:16 99 71/47 (55) 69/47 (54) 12/03/17 10:01 100 101/60 (74) 70/48 (55) 12/03/17 10:00 101 70/48 (55) 12/03/17 10:00 101 12/03/17 09:58 101 73/43 12/03/17 09:46 104 73/48 (56) 66/47 (53) 12/03/17 09:43 105 62/47 12/03/17 09:31 107 90/39 (56) 58/43 (48) 12/03/17 09:21 109 86/38 (54) 55/40 (45) 6/19/18 09:00 101 90/56 (67) 76 6/19/18 08:55 100 6/19/18 08:29 101 87/57 6/19/18 08:22 102 140/88 (105) 77 85/57 (66) 6/18 08:16 90 100 6/19/18 08:07 102 83/57 6/18 08:00 102 6/18 08:00 97.4 102 87/52 (64) 77 618 08:00 100 618 07:46 103 122/79 (93) 79 78/45 (56) 618 07:31 103 85/61 (69) 81 82/46 (58) 618 07:30 103 83/46 618 07:16 101 90/52 (65) 82 88/46 (60) 18 07:00 100 84/46 (59) 82 87/47 (60) 12/03/17 06:00 93 12/03/17 05:41 86 68/41 618 05:30 86 73/43 6/18 04:30 86 75/41 (52) 82 6/19/18 04:04 83 100 6/18 04:00 87 6//18 04:00 98.1 90 81 69/43 (52) 18 04:00 100 6/18 03:42 91 68/44 6/18 03:30 92 61/42 (48) 82 6/18 03:30 92 61/42 6/18 03:27 93 78/44 (55) 85 68/45 (53) 6/18 03:15 100 68/46 6/18 03:05 100 78/49 619/18 03:01 100 100/44 (62) 87 78/50 (59) 619/18 03:00 100 80/50 (60) 86 6/19/18 03:00 100 80/50 6/19/18 02:45 101 75/54 (61) 87 80/51 (61) 619/18 02:30 100 76/51 (59) 87 81/50 (60) 6/18 02:15 100 78/56 (63) 87 83/49 (60) 18 02:01 98 85/47 (60) 89 87/50 (62) 12/03/17 02:00 100 18 02:00 98 88/51 (63) 89 6/19/18 01:50 100 83/52 12/03/17 01:45 99 73/48 (56) 84 84/53 (63) 12/03/17 01:40 99 84/52 12/03/17 01:31 99 77/38 (51) 85/54 (64) 18 01:30 99 86/54 (65) 12/03/17 01:30 99 86/54 12/03/17 01:20 99 87/53 12/03/17 01:15 97 70/50 (57) 100 83/51 (62) 12/03/17 01:10 97 84/52 12/03/17 01:00 97 82/52 (62) 82 89/53 (65) 12/03/17 01:00 97 89/53 12/03/17 00:50 97 93/54 12/03/17 00:40 97 92/53 12/03/17 00:30 97 88/52 (64) 84 98/54 (69) 12/03/17 00:30 97 98/54 12/03/17 00:20 96 96/52 12/03/17 00:15 96 83/52 (62) 84 97/55 (69) 12/03/17 00:12 96 96/54 12/03/17 00:00 100 12/03/17 00:00 96 12/03/17 00:00 98.3 96 75/52 (60) 82 89/53 (65) 18 23:45 96 84/53 (63) 84 91/54 (66) 18 23:44 84 100 18 23:30 96 83/52 (62) 84 91/53 (66) 18 23:30 96 91/53 12/02/17 23:15 97 80/51 (61) 86 92/54 (67) 18 23:10 97 80/51 (61) 87 92/54 (67) 12/02/17 23:10 97 92/54 6/18/18 23:00 98 76/48 (57) 86 85/53 (64) 618/18 23:00 98 85/53 6/18/18 22:45 98 81/52 6/18/18 22:34 99 90/54 6/18/18 22:30 98 78/44 (55) 86 88/54 (65) 618/18 22:25 98 82/44 (57) 86 86/54 (65) 618/18 22:20 98 83/48 (60) 86 80/52 (61) 618/18 22:20 98 80/57 6/18/18 22:15 100 81/45 (57) 87 88/55 (66) 618/18 22:10 99 88/47 (61) 87 88/55 (66) 618/18 22:10 99 88/55 6/18/18 22:05 100 87/50 (62) 86 89/56 (67) 18 22:00 100 80/51 (61) 84 79/52 (61) 618/18 22:00 99 6/18/18 22:00 100 79/52 6/18/18 21:55 100 78/51 (60) 85 79/52 (61) 618/18 21:50 100 79/53 (62) 86 75/51 (59) 618/18 21:50 100 75/51 6/18/18 21:45 100 81/51 (61) 81 75/52 (60) 18/18 21:40 101 84/51 (62) 87 76/53 (61) 18/18 21:40 101 76/53 6/18/18 21:39 101 81/48 (59) 77 77/53 (61) 6/18/18 21:33 101 82/47 6/18/18 21:30 102 82/47 (59) 83 74/52 (59) 6/18/18 21:25 105 83/48 (60) 84 74/51 (59) 6/18/18 21:20 104 88/49 (62) 85 76/50 (59) 618/18 21:20 104 76/50 6/18/18 21:16 104 98/56 (70) 83 78/52 (61) 6/18/18 21:13 104 83/53 6/18/18 21:13 103 82/52 6/18/18 21:10 103 89/51 (64) 84 82/52 (62) 6/18/18 21:05 102 91/53 (66) 87 83/52 (62) 6/18/18 21:00 102 91/52 (65) 88 85/53 (64) 6/18/18 21:00 102 85/53 6/18/18 20:50 101 83/51 6/18/18 20:40 101 82/50 6/18/18 20:30 102 85/51 6/18/18 20:30 102 84/51 (62) 86 85/51 (62) 6/18/18 20:25 101 86/53 (64) 85 83/50 (61) 6/18/18 20:20 100 85/50 (62) 86 81/49 (60) 6/18/18 20:20 100 81/49 6/18/18 20:15 100 88/55 (66) 86 80/47 (58) 6/18/18 20:10 101 93/55 (68) 87 83/48 (60) 6/18/18 20:10 101 83/48 6/18/18 20:07 100 100 6/18/18 20:05 100 87/52 (64) 87 83/49 (60) 6/18/18 20:00 100 6/18/18 20:00 100.8 99 92/57 (69) 88 85/49 (61) 618/18 20:00 99 6/18/18 20:00 99 85/49 6/18/18 19:55 99 93/56 (68) 87 84/49 (61) 6/18/18 19:50 100 97/55 (69) 88 90/52 (65) 6/18/18 19:45 99 94/51 (65) 88 90/52 (65) 6/18/18 19:45 99 90/52 6/18/18 19:40 98 94/53 (67) 88 91/52 (65) 6/18/18 19:35 98 100/57 (71) 89 94/53 (67) 6/18/18 19:30 97 99/55 (70) 89 92/51 (65) 18 19:30 97 92/51 18 19:25 100 98/57 (71) 90 89/47 (61) 18 19:20 100 101/58 (72) 90 99/54 (69) 18 19:15 100 104/58 (73) 90 92/47 (62) 18 19:15 100 92/47 12/02/17 19:10 101 101/56 (71) 90 90/46 (61) 18 19:05 101 106/59 (75) 90 89/44 (59) 12/02/17 19:00 102 107/60 (76) 91 73/29 (44) 12/02/17 19:00 102 107/60 12/02/17 19:00 102 107/60 12/02/17 18:00 100 12/02/17 18:00 104 12/02/17 16:56 100 90/52 12/02/17 16:30 94 18 113/58 (76) 89 69/40 (50) 18 16:00 100 18 16:00 97.8 95 18 78/52 (61) 72 12/02/17 16:00 95 12/02/17 15:29 87 88/52 12/02/17 15:15 90 100 (Sameera Rudd) -: 12/03/17 0400 12/03/17 0400 Imaging Last Impressions Chest X-Ray 12/03/17 0600 Signed Impressions: CONCLUSION: Persistent consolidation in the lung bases. A combination of pleural effusion a nd atelectasis. Tubes and catheters are stable Abdomen X-Ray 12/03/17 0600 Signed Impressions: CONCLUSION: Overall paucity of bowel gas. No interval change since the Upper Extremity Ultrasound 12/02/17 0000 Signed Impressions: CONCLUSION: 1. Negative for deep venous thrombosis. There is a small nonocclusive thrombus in the cephalic vein at the antecubital fossa on the right, similar to November 20 exam. Lower Extremity Ultrasound 12/02/17 0000 Signed Impressions: CONCLUSION: 1. The study is negative for bilateral lower extremity deep venous thrombosis. Catheter Placement X-Ray 11/29/17 0737 Signed Impressions: CONCLUSION: Uncomplicated ultrasound guided central venous dialysis line placement as above . (Sameera Rudd) Physical Exam General Appearance: No Acute Distress, Comfortable (Sameera Rudd) Eyes Eye Exam: Pupils Equal (Sameera Rudd) Throat Throat Exam: Oral Mucosa [place] & Moist (Sameera RuddP) Pulmonary Resp Exam: Crackles, Rhonchi, Decreased Bases, Diminished Breath Sounds, Poor Inspiratory Effort (Sameera Rudd) Cardiology CV Exam: Regular, Normal Sinus Rhythm (Sameera Rudd) Gastrointestinal/Abdomen GI Exam: Soft, Non-Tender, Bowel Sounds Present, Distended (Sameera Rudd) Extremeties Extremities Exam: Pitting Edema, Dependent Edema (Sameera Rudd) Neurologic Neuro Exam: Sedated (Sameera Rudd) Assessment/Plan Assessment Summary: MARION/Acute Renal Failure, Anemia of CKD, Hypertension, CKD Stage IV Electrolyte Assessment: Hyperkalemia, Metabolic Acidosis Problem List: (1) Acute kidney injury ICD Codes: N17.9 - Acute kidney failure, unspecified Status: Acute Plan: Patient remains intubated s/p vas cath placement 11/29 Hemodialysis started on 11/29 then 11/28 now on CRRT HCO3 is low and sodium bicarbonate given Continue CRRT rate increased Prognosis very poor (2) Stage 4 chronic kidney disease ICD Codes: N18.4 - Chronic kidney disease, stage 4 (severe) Plan: Patient has stage 4 chronic kidney disease. Now develop MARION, and Hyperkalemia, also has metabolic acidosis. Patient remains intubated s/p vas cath placement 11/29 (3) pneumonia in a immunocompromise patient Status: Acute (4) Acute on chronic systolic (congestive) heart failure ICD Codes: I50.23 - Acute on chronic systolic (congestive) heart failure (5) Immunocompromised ICD Codes: D84.9 - Immunocompromised Status: Chronic (6) HIV (human immunodeficiency virus infection) ICD Codes: Z21 - HIV (human immunodeficiency virus infection) Status: Chronic (7) Hyperkalemia ICD Codes: E87.5 - Hyperkalemia Status: Acute (8) DM (diabetes mellitus) ICD Codes: E11.9 - DM (diabetes mellitus) Status: Chronic Plan: insulin coverage, maintain blood glucose between 140 and 180 (Sameera Rudd) Problem List: (1) Acute kidney injury ICD Codes: N17.9 - Acute kidney failure, unspecified Status: Acute Plan: Patient remains intubated s/p vas cath placement 11/29 Hemodialysis started on 11/29 then 11/28 now on CRRT HCO3 is low and sodium bicarbonate given Continue CRRT rate increased Prognosis very poor. Patient seen and examined, agree with above. Has metabolic acidosis, increase Dialyzate flow to 100ml/hr and add NaHco3 in replacement fluid. (2) Stage 4 chronic kidney disease ICD Codes: N18.4 - Chronic kidney disease, stage 4 (severe) Plan: Patient has stage 4 chronic kidney disease. Now develop MARION, and Hyperkalemia, also has metabolic acidosis. Patient remains intubated s/p vas cath placement 11/29 (3) pneumonia in a immunocompromise patient Status: Acute (4) Acute on chronic systolic (congestive) heart failure ICD Codes: I50.23 - Acute on chronic systolic (congestive) heart failure (5) Immunocompromised ICD Codes: D84.9 - Immunocompromised Status: Chronic (6) HIV (human immunodeficiency virus infection) ICD Codes: Z21 - HIV (human immunodeficiency virus infection) Status: Chronic (7) Hyperkalemia ICD Codes: E87.5 - Hyperkalemia Status: Acute (8) DM (diabetes mellitus) ICD Codes: E11.9 - DM (diabetes mellitus) Status: Chronic Plan: insulin coverage, maintain blood glucose between 140 and 180 (Millicent Ga MD) Sameera Rudd Dec 03, 2017 15:07 Millicent Ga MD Dec 03, 2017 22:20
[2017-12-03 16:08] LABS: BICARBONATE 18.6 MEQ/L (21.0-32.0); CALCIUM 5.3 MG/DL (8.5-10.1); CREATININE 3.77 MG/DL (0.60-1.30); MAGNESIUM 1.8 MG/DL (1.5-2.5); TOTAL PROTEIN 2.9 GM/DL (6.4-8.2); TROPONIN I 0.39 NG/ML (0.02-0.05)
[2017-12-03 16:11] LABS: CALCIUM-PROTEIN CORRECTED 7.2 MG/DL (8.5-10.1)
--- NOTE | 2017-12-03 16:34 | EKG ---
Date Performed: 12/02/2017 Time Performed: 12:37:25 PTAGE: 56 years EKG: Sinus rhythm WITH OCCASIONAL SUPRAVENTRICULAR PREMATURE COMPLEXES MODERATE INTRAVENTRICULAR CONDUCTION DELAY ST D EVIATION AND MODERATE T-WAVE ABNORMALITY, CONSIDER LATERAL ISCHEMIA ST DEVIATION AND MODERATE T-WAVE ABNORMALITY, CONSIDER INFERIOR ISCHEMIA ABNORMAL ECG when compared to prior EKG,no significant change PREVIOUS TRACING : 11/26/2017 00.17 DOCTOR: Della Bazan Interpretating Date/Time 12/03/2017 16:33:00
--- NOTE | 2017-12-03 16:39 | HHI.DS ---
Discharge Summary Admission Date Nov 26, 2017 at 02:37 Discharge Date: Dec 03, 2017 Admitting Diagnosis (1) Septic shock ICD Code: A41.9 - Sepsis, unspecified organism; R65.21 - Severe sepsis with septic shock (2) Acute respiratory failure ICD Code: J96.00 - Acute respiratory failure, unspecified whether with hypoxia or hypercapnia (3) Acute kidney injury ICD Code: N17.9 - Acute kidney failure, unspecified Status: Acute (4) Immunocompromised ICD Code: D84.9 - Immunocompromised Status: Chronic (5) HIV (human immunodeficiency virus infection) ICD Code: Z21 - HIV (human immunodeficiency virus infection) Status: Chronic (6) PNA (pneumonia) ICD Code: J18.9 - PNA (pneumonia) Status: Acute Brief History 56 year old male with COPD requiring nasal CPAP, HIV, hepatitis, and MRSA presents with a history of shortness of breath that had been progressively getting worse over the last 24 hours. The patient is currently a resident at [facility]. According to ambulance service, the patient was on hospice which was recently revoked. Upon ambulance arrival the patient was noted to be tachypneic with a respiratory rate in the 40s, O2 saturations were reportedly at 90% on nasal CPAP. The patient's GCS was diminished to 9 whereas the patient's normal GCS is 15. The patient was provided Versed 4 mg IV, etomidate 20 mg IV and intubated with an endotracheal tube, size 7-1/2. The patient had an OG tube placed. The patient was given normal saline 1500 mL in route to this facility. On arrival, the patient not have any spontaneous respiratory activity noted. CBC/BMP: 12/03/17 0400 12/03/17 1351 Significant Findings Laboratory Tests Test 12/01/17 08:13 12/01/17 16:00 12/02/17 05:42 12/02/17 11:10 Blood Urea Nitrogen 93 MG/DL (7-18) 94 MG/DL (7-18) Creatinine 4.63 MG/DL (0.60-1.30) 4.79 MG/DL (0.60-1.30) Random Glucose 258 MG/DL (74-106) 241 MG/DL (74-106) Total Protein 5.7 GM/DL (6.4-8.2) 5.7 GM/DL (6.4-8.2) 5.4 GM/DL (6.4-8.2) Calcium Level 7.2 MG/DL (8.5-10.1) 6.8 MG/DL (8.5-10.1) Potassium Level 5.3 MEQ/L (3.5-5.1) 5.2 MEQ/L (3.5-5.1) Carbon Dioxide Level 20.8 MEQ/L (21.0-32.0) 19.7 MEQ/L (21.0-32.0) Anion Gap 17 MEQ/L (5-15) 19 MEQ/L (5-15) Estimat Glomerular Filtration Rate 16 ML/MIN (>89) 15 ML/MIN (>89) Protein Corrected Calcium 7.9 MG/DL (8.5-10.1) 7.7 MG/DL (8.5-10.1) Red Blood Count 3.41 MIL/MM3 (4.50-5.90) 3.49 MIL/MM3 (4.50-5.90) Hemoglobin 8.9 GM/DL (13.0-17.0) 9.2 GM/DL (13.0-17.0) Hematocrit 28.8 % (39.0-51.0) 29.7 % (39.0-51.0) Mean Corpuscular Hemoglobin 26.3 PG (27.0-34.0) 26.3 PG (27.0-34.0) Mean Corpuscular Hemoglobin Concent 31.0 % (32.0-36.0) 30.9 % (32.0-36.0) Red Cell Distribution Width 22.0 % (11.6-17.2) 22.3 % (11.6-17.2) Prothrombin Time 38.9 SEC (9.8-11.6) Activated Partial Thromboplast Time 59.7 SEC (24.3-30.1) Phosphorus Level 7.1 MG/DL (2.5-4.9) 7.3 MG/DL (2.5-4.9) Total Creatine Kinase 22 U/L (39-308) Albumin 2.2 GM/DL (3.4-5.0) 2.1 GM/DL (3.4-5.0) Band Neutrophils % 27 % (0-6) Lymphocytes % 3 % (9-44) Nucleated Red Blood Cells 2 /100 WBC (0-0) Blood Gas Base Excess -3.8 mmol/L (-2-2) Blood Gas Oxygen Saturation 76 % (90-100) Arterial Blood pH 7.29 (7.380-7.420) Arterial Blood Partial Pressure CO2 47 mmHg (38-42) Arterial Blood Partial Pressure O2 55 mmHg (61-120) Arterial Blood Oxygen Content 9.2 Vol % (12.0-20.0) Blood Gas Hemoglobin 8.7 G/DL (12.0-16.0) Test 12/02/17 12:20 12/02/17 12:35 12/02/17 14:30 12/02/17 15:20 White Blood Count 3.3 TH/MM3 (4.0-11.0) Red Blood Count 3.53 MIL/MM3 (4.50-5.90) Hemoglobin 9.3 GM/DL (13.0-17.0) Hematocrit 30.1 % (39.0-51.0) Mean Corpuscular Hemoglobin 26.3 PG (27.0-34.0) Mean Corpuscular Hemoglobin Concent 30.8 % (32.0-36.0) Red Cell Distribution Width 22.4 % (11.6-17.2) Prothrombin Time 17.3 SEC (9.8-11.6) Activated Partial Thromboplast Time 44.1 SEC (24.3-30.1) Blood Gas Base Excess -2.9 mmol/L (-2-2) Blood Gas Oxygen Saturation 74 % (90-100) Arterial Blood pH 7.23 (7.380-7.420) Arterial Blood Partial Pressure CO2 59 mmHg (38-42) Arterial Blood Partial Pressure O2 55 mmHg (61-120) Arterial Blood Oxygen Content 9.3 Vol % (12.0-20.0) Blood Gas Hemoglobin 8.9 G/DL (12.0-16.0) Test 12/02/17 16:35 12/02/17 18:20 12/02/17 18:35 12/03/17 00:20 Blood Gas HCO3 21 mmol/L (22-26) Blood Gas Base Excess -5.0 mmol/L (-2-2) -6.2 mmol/L (-2-2) Blood Gas Oxygen Saturation 89 % (90-100) Arterial Blood pH 7.25 (7.380-7.420) 7.14 (7.380-7.420) Arterial Blood Partial Pressure CO2 50 mmHg (38-42) 66 mmHg (38-42) Arterial Blood Oxygen Content 11.0 Vol % (12.0-20.0) 11.0 Vol % (12.0-20.0) Blood Gas Hemoglobin 8.7 G/DL (12.0-16.0) 8.5 G/DL (12.0-16.0) White Blood Count 1.8 TH/MM3 (4.0-11.0) Red Blood Count 3.40 MIL/MM3 (4.50-5.90) Hemoglobin 8.8 GM/DL (13.0-17.0) Hematocrit 29.5 % (39.0-51.0) Mean Corpuscular Hemoglobin 25.9 PG (27.0-34.0) Mean Corpuscular Hemoglobin Concent 29.9 % (32.0-36.0) Red Cell Distribution Width 22.3 % (11.6-17.2) Blood Urea Nitrogen 95 MG/DL (7-18) Creatinine 5.20 MG/DL (0.60-1.30) Random Glucose 175 MG/DL (74-106) Total Protein 4.7 GM/DL (6.4-8.2) Albumin 1.9 GM/DL (3.4-5.0) Calcium Level 6.6 MG/DL (8.5-10.1) Phosphorus Level 7.4 MG/DL (2.5-4.9) Alkaline Phosphatase 41 U/L (45-117) Direct Bilirubin 0.4 MG/DL (0.0-0.2) Potassium Level 5.4 MEQ/L (3.5-5.1) Carbon Dioxide Level 20.0 MEQ/L (21.0-32.0) Anion Gap 17 MEQ/L (5-15) Estimat Glomerular Filtration Rate 14 ML/MIN (>89) Lactic Acid Level 4.3 mmol/L (0.4-2.0) 3.9 mmol/L (0.4-2.0) Protein Corrected Calcium 7.8 MG/DL (8.5-10.1) Troponin I 0.08 NG/ML (0.02-0.05) 0.13 NG/ML (0.02-0.05) Test 12/03/17 04:00 12/03/17 05:23 12/03/17 08:30 12/03/17 11:00 White Blood Count 2.2 TH/MM3 (4.0-11.0) Red Blood Count 3.43 MIL/MM3 (4.50-5.90) Hemoglobin 8.8 GM/DL (13.0-17.0) Hematocrit 29.3 % (39.0-51.0) Mean Corpuscular Hemoglobin 25.5 PG (27.0-34.0) Mean Corpuscular Hemoglobin Concent 29.9 % (32.0-36.0) Red Cell Distribution Width 22.8 % (11.6-17.2) Platelet Count 120 TH/MM3 (150-450) Band Neutrophils % 13 % (0-6) Monocytes % 12 % (0-8) Neutrophils # (Manual) 1.7 TH/MM3 (1.8-7.7) Metamyelocytes 25 % (0-1) Myelocytes 15 % (0-0) Nucleated Red Blood Cells 217 /100 WBC (0-0) Platelet Estimate LOW (NORMAL) Platelet Morphology Comment ENLARGED (NORMAL) Polychromasia 3.5 % (0.0-1.9) Target Cells 1+ (NORMAL) Ovalocytes 1+ (NORMAL) Blood Urea Nitrogen 81 MG/DL (7-18) Creatinine 4.53 MG/DL (0.60-1.30) Random Glucose 124 MG/DL (74-106) Total Protein 4.6 GM/DL (6.4-8.2) Albumin 1.7 GM/DL (3.4-5.0) Calcium Level 6.3 MG/DL (8.5-10.1) Phosphorus Level 6.6 MG/DL (2.5-4.9) Alkaline Phosphatase 34 U/L (45-117) Aspartate Amino Transf (AST/SGOT) 61 U/L (15-37) Potassium Level 5.2 MEQ/L (3.5-5.1) Carbon Dioxide Level 16.4 MEQ/L (21.0-32.0) Anion Gap 19 MEQ/L (5-15) Estimat Glomerular Filtration Rate 16 ML/MIN (>89) Lactic Acid Level 4.4 mmol/L (0.4-2.0) Protein Corrected Calcium 7.5 MG/DL (8.5-10.1) Troponin I 0.15 NG/ML (0.02-0.05) Blood Gas HCO3 17 mmol/L (22-26) 17 mmol/L (22-26) 13 mmol/L (22-26) Blood Gas Base Excess -10.9 mmol/L (-2-2) -12.5 mmol/L (-2-2) -17.6 mmol/L (-2-2) Blood Gas Oxygen Saturation 76 % (90-100) 72 % (90-100) 63 % (90-100) Arterial Blood pH 7.13 (7.380-7.420) 7.01 (7.380-7.420) 6.92 (7.380-7.420) Arterial Blood Partial Pressure CO2 53 mmHg (38-42) 71 mmHg (38-42) 65 mmHg (38-42) Arterial Blood Partial Pressure O2 60 mmHg (61-120) 55 mmHg (61-120) Arterial Blood Oxygen Content 9.3 Vol % (12.0-20.0) 9.8 Vol % (12.0-20.0) 7.9 Vol % (12.0-20.0) Blood Gas Hemoglobin 8.6 G/DL (12.0-16.0) 9.6 G/DL (12.0-16.0) 8.8 G/DL (12.0-16.0) Test 12/03/17 11:50 12/03/17 12:30 12/03/17 13:50 12/03/17 13:51 Lactic Acid Level 10.6 mmol/L (0.4-2.0) Blood Gas HCO3 14 mmol/L (22-26) 17 mmol/L (22-26) Blood Gas Base Excess -16.9 mmol/L (-2-2) -13.9 mmol/L (-2-2) Blood Gas Oxygen Saturation 65 % (90-100) 61 % (90-100) Arterial Blood pH 6.92 (7.380-7.420) 6.94 (7.380-7.420) Arterial Blood Partial Pressure CO2 70 mmHg (38-42) 80 mmHg (38-42) Arterial Blood Partial Pressure O2 56 mmHg (61-120) 52 mmHg (61-120) Arterial Blood Oxygen Content 7.3 Vol % (12.0-20.0) 5.8 Vol % (12.0-20.0) Blood Gas Hemoglobin 8.0 G/DL (12.0-16.0) 6.6 G/DL (12.0-16.0) Blood Urea Nitrogen 61 MG/DL (7-18) Creatinine 3.77 MG/DL (0.60-1.30) Random Glucose 379 MG/DL (74-106) Total Protein 2.9 GM/DL (6.4-8.2) Albumin 1.0 GM/DL (3.4-5.0) Calcium Level 5.3 MG/DL (8.5-10.1) Alkaline Phosphatase 37 U/L (45-117) Aspartate Amino Transf (AST/SGOT) 147 U/L (15-37) Sodium Level 133 MEQ/L (136-145) Potassium Level 6.0 MEQ/L (3.5-5.1) Chloride Level 92 MEQ/L (98-107) Carbon Dioxide Level 18.6 MEQ/L (21.0-32.0) Anion Gap 22 MEQ/L (5-15) Estimat Glomerular Filtration Rate 20 ML/MIN (>89) Protein Corrected Calcium 7.2 MG/DL (8.5-10.1) Troponin I 0.39 NG/ML (0.02-0.05) Imaging Last Impressions Chest X-Ray 12/03/17599 Signed Impressions: CONCLUSION: Persistent consolidation in the lung bases. A combination of pleural effusion a nd atelectasis. Tubes and catheters are stable Abdomen X-Ray 12/03/17599 Signed Impressions: CONCLUSION: Overall paucity of bowel gas. No interval change since the Upper Extremity Ultrasound 12/02/17 Signed Impressions: CONCLUSION: 1. Negative for deep venous thrombosis. There is a small nonocclusive thrombus in the cephalic vein at the antecubital fossa on the right, similar to November 20 exam. Lower Extremity Ultrasound 12/02/17 Signed Impressions: CONCLUSION: 1. The study is negative for bilateral lower extremity deep venous thrombosis. Catheter Placement X-Ray 11/29/17 0737 Signed Impressions: CONCLUSION: Uncomplicated ultrasound guided central venous dialysis line placement as above . PE at Discharge Patient Transfer Summary Patient decompensated despite maximum support, requiring increasing doses of vasopressors, on epinephrine, norepinephrine, vasopressin and phenylephrine. Patient became increasingly hypoxic requiring high PEEP and high FiO2. Patient required CRRT and bicarb infusion. Antibiotics were broadened to meropenem, vancomycin and micafungin. Despite maximum support patient continued to deteriorate, coding on 12/02 and 12/03. Infectious diseases, nephrology and palliative care was involved in patient's care. Sebastien, patient's brother, made patient DNR on 12/03. Shortly after patient . Hospital Course 56 year old male with COPD requiring nasal CPAP, HIV, hepatitis, and MRSA presents with a history of shortness of breath that had been progressively getting worse over the last 24 hours. The patient is currently a resident at [facility]. According to ambulance service, the patient was on hospice which was recently revoked. Upon ambulance arrival the patient was noted to be tachypneic with a respiratory rate in the 40s, O2 saturations were reportedly at 90% on nasal CPAP. The patient's GCS was diminished to 9 whereas the patient's normal GCS is 15. The patient was provided Versed 4 mg IV, etomidate 20 mg IV and intubated with an endotracheal tube, size 7-1/2. The patient had an OG tube placed. The patient was given normal saline 1500 mL in route to this facility. On arrival, the patient not have any spontaneous respiratory activity noted. 11/27: Patient was noted to be hypertensive during the night. Patient scheduled antihypertensive medications reinitiated. Daily sedation vacation patient following commands. The patient tolerated CPAP trials for 3 hours. Her last admission the patient was noted to have heparin platelet antibody positive antigen. Serotonin release assay pending. Fondaparinux 5 mg every 24 hours continued. Patient noted to have elevated potassium level this a.m. 80 mg Lasix IV given patient initiated him on 40 mg twice daily. 11/28: Afebrile. Noted potassium 5.8 this morning creatinine slightly more elevated 4.24 sodium bicarbonate infusion initiated at 42 cc/hr. invasive radiology consulted for Vas-Cath placement scheduled for 11/29/2017. Arixtra has been placed on hold. The patient continues on CPAP trials greater than 3 hours this a.m.. Repeat BMP this afternoon. 11/29: The patient underwent Vas-Cath placement with IR early this a.m..Patient has heparin antibody platelets the patient is unable to utilize heparin flush for dialysis catheter. Argatroban infusion initiated for prophylaxis, and maintenance of Vas-Cath. This was discussed with pharmacology and nephrology. Vancomycin discontinued, Dr. Alexis aware. Patient underwent hemodialysis sodium bicarbonate infusion discontinued. Arixtra discontinued now as contraindicated in the setting of renal failure. 11/30: no improvements or changes. was previously on hospice: overall this gentleman with multiple medical comorbidities is acutely critically ill- may likely not survive this hospitalization. 12/01: Afebrile. Off all vasopressors been very poor access peripherally for blood draws. Certain release assay is negative. Will discontinue argatroban drip. Previous he had a right cephalic thrombus/superficial. Platelets currently greater than 100,000. 12/02: Afebrile. Some tube feed coming from mouth. No residuals noted. Elevated MB is noted. 50 units sliding scale past 24 hours. Platelets continue to rise. 12/03: Patient remains critically ill. He is currently on norepinephrine at 100 mcg/minute and epinephrine at 20 mcg/minute. On CRRT. On pressure control mode at FiO2 of 1. Tmax 100.8. Not on any sedation, poorly responsive, some spontaneous movement, but not following commands. Not synchronized with the ventilator at times. No family present at bedside. Pt Condition on Discharge: Deteriorating Jay Harper MD Dec 03, 2017 16:39
--- NOTE | 2017-12-03 20:27 | ECHRPT ---
Indication: Heart failure, unspecified CONCLUSIONS There is mild to moderate left ventricular hypertrophy. The left ventricular systolic function is severely reduced with an estimated ejection fraction in th e range of 20-25%. Mildly dilated left ventricle. [id number] mitral valve regurgitation. Diffuse calcification of the aortic valve. BP: / HR: Rhythm: MEASUREMENTS (Male / Female) Normal Values Technical Quality:Technically difficult study 2D ECHO LV Diastolic Diameter PLAX 6.2 cm 4.2 - 5.9 / 3.9 - 5.3 cm LV Systolic Diameter PLAX 5.7 cm IVS Diastolic Thickness 1.3 cm 0.6 - 1.0 / 0.6 - 0.9 cm LVPW Diastolic Thickness 1.6 cm 0.6 - 1.0 / 0.6 - 0.9 cm LV Relative Wall Thickness 0.5 RV Internal Dim ED PLAX 2.7 cm M-MODE Aortic Root Diameter MM 3.6 cm LA Systolic Diameter MM 3.4 cm LA Ao Ratio MM 0.9 AV Cusp Separation MM 2.0 cm FINDINGS LEFT VENTRICLE There is mild to moderate left ventricular hypertrophy. The left ventricular systolic function is severely reduced with an estimated ejection fraction in th e range of 20-25%. Mildly dilated left ventricle. RIGHT VENTRICLE Normal right ventricular size LEFT ATRIUM The left atrial size is normal. RIGHT ATRIUM The right atrial size is normal. ATRIAL SEPTUM Normal atrial septal thickness without atrial level shunting by limited color doppler interrogation. AORTA The aortic root and proximal ascending aorta are not well visualized. MITRAL VALVE [id number] mitral valve regurgitation. AORTIC VALVE Diffuse calcification of the aortic valve. No aortic valve regurgitation. TRICUSPID VALVE No tricuspid regurgitation. PULMONARY VALVE No pulmonary valve regurgitation. PERICARDIUM There is no pericardial effusion. Sudeep Chavez MD, FACC (Electronically Signed) Final Date:03 December 2017 20:26
== END 2017-12-03 15:24 | disposition expired | DRG 207 ==
LOC: NEPE 01:09 → NEDA 02:37 → UNDOADMIN 02:55 → NEDA 02:55 → HIME 04:20
PROVIDERS: ADMIT Internal Medicine Critical Care Medicine; ATTEND Internal Medicine Critical Care Medicine
PROC: 05HM33Z Insertion of Infusion Device into Right Internal Jugular Vein, Percutaneous Approach (ICD-10-PCS; 2017-11-29)
PROC: 5A1D70Z Performance of Urinary Filtration, Intermittent, Less than 6 Hours Per Day (ICD-10-PCS; 2017-11-29)
PROC: 04HY32Z Insertion of Monitoring Device into Lower Artery, Percutaneous Approach (ICD-10-PCS; 2017-12-02)
PROC: 02HV33Z Insertion of Infusion Device into Superior Vena Cava, Percutaneous Approach (ICD-10-PCS; 2017-12-02)
PROC: 5A12012 Performance of Cardiac Output, Single, Manual (ICD-10-PCS; 2017-12-02)
PROC: 5A1955Z Respiratory Ventilation, Greater than 96 Consecutive Hours (ICD-10-PCS; principal; 2017-12-03)
PROC: 5A12012 Performance of Cardiac Output, Single, Manual (ICD-10-PCS; 2017-12-03)
DX: J96.01 Acute respiratory failure with hypoxia (principal); B20 Human immunodeficiency virus [HIV] disease; R65.21 Severe sepsis with septic shock; I50.23 Acute on chronic systolic (congestive) heart failure; G93.41 Metabolic encephalopathy; J18.9 Pneumonia, unspecified organism; A41.9 Sepsis, unspecified organism; N17.9 Acute kidney failure, unspecified; E87.4 Mixed disorder of acid-base balance; N18.4 Chronic kidney disease, stage 4 (severe); J44.0 Chronic obstructive pulmonary disease with (acute) lower respiratory infection; I43 Cardiomyopathy in diseases classified elsewhere; B19.10 Unspecified viral hepatitis B without hepatic coma; I13.0 Hypertensive heart and chronic kidney disease with heart failure and stage 1 through stage 4 chronic kidney disease, or unspecified chronic kidney disease; Z68.41 Body mass index [BMI] 40.0-44.9, adult; J96.02 Acute respiratory failure with hypercapnia; Z66 Do not resuscitate; I46.9 Cardiac arrest, cause unspecified; E66.9 Obesity, unspecified; M06.9 Rheumatoid arthritis, unspecified; F32.9 Major depressive disorder, single episode, unspecified; Z85.72 Personal history of non-Hodgkin lymphomas; I89.0 Lymphedema, not elsewhere classified; I25.10 Atherosclerotic heart disease of native coronary artery without angina pectoris; K21.9 Gastro-esophageal reflux disease without esophagitis; E11.22 Type 2 diabetes mellitus with diabetic chronic kidney disease; E83.51 Hypocalcemia; E03.9 Hypothyroidism, unspecified; B19.20 Unspecified viral hepatitis C without hepatic coma; G47.33 Obstructive sleep apnea (adult) (pediatric); E87.5 Hyperkalemia; I27.20 Pulmonary hypertension, unspecified; E11.42 Type 2 diabetes mellitus with diabetic polyneuropathy; D63.1 Anemia in chronic kidney disease; D69.6 Thrombocytopenia, unspecified; E11.649 Type 2 diabetes mellitus with hypoglycemia without coma; E11.65 Type 2 diabetes mellitus with hyperglycemia; E83.39 Other disorders of phosphorus metabolism; E88.09 Other disorders of plasma-protein metabolism, not elsewhere classified; Y95 Nosocomial condition; Z79.891 Long term (current) use of opiate analgesic; Z92.21 Personal history of antineoplastic chemotherapy; I25.2 Old myocardial infarction; Z79.4 Long term (current) use of insulin; Z91.19 Patient's noncompliance with other medical treatment and regimen; Z87.891 Personal history of nicotine dependence; Z86.14 Personal history of Methicillin resistant Staphylococcus aureus infection; Z95.810 Presence of automatic (implantable) cardiac defibrillator
CPT/HCPCS: 36556; 36600; 36620; 51702; 71045; 74018; 76937; 77001; 80048; 80053; 80074; 80076; 80202; 80307; 81001; 82550; 82805; 82948; 83605; 83690; 83735; 83880; 84100; 84132; 84155; 84443; 84484; 85007; 85025; 85027; 85384; 85610; 85730; 86022; 86140; 87040; 87070; 87086; 87205; 87641; 90935; 93005; 93308; 93970; 94002; 94003; 94640; 94664; 94799; 96365; 96368; 96374; 96375; C1752; J0171; J0456; J0610; J0692; J0883; J1325; J1580; J1644; J1650; J1652; J1720; J1815; J1940; J2185; J2248; J2250; J2370; J2543; J2765; J2920; J3370; J7030; J7040; J7050; J7060; J7070; J7626; P9045; Q4081